=== PATIENT | female | born 1945 | race Caucasian/White ===

== ENCOUNTER 2016-11-15 11:35 | Emergency (ER) | payer OTHER, BC ==
[~2016-11-15] VITALS: Ht 152.4 cm; Wt 58.5 kg
[~2016-11-15 11:35] MED LIST: ARC10 PO; ASPI81TA21 PO; CLX20 PO; LEVO-217 PO; MEMA10TA PO; SIMV20TA2 PO; VITAMIN D 3 PO
[2016-11-15 11:38] VITALS: TEMP 36.4
[2016-11-15 12:00] VITALS: O2SAT 96
[2016-11-15] MEDS ORDERED: SODIUM CHLORIDE 0.9% 1000ML 1,000 ML IV SCH (12:32)
[2016-11-15 12:36] VITALS: Ht 152.4 cm; Wt 58.5 kg
[2016-11-15] MEDS ORDERED: CHOL1000 PO (12:42)
[2016-11-15] MEDS ORDERED: LEVO75TA5 PO (12:42)
[2016-11-15] MEDS ORDERED: MIRT15TA3 PO (12:42)
[2016-11-15] MEDS ORDERED: CLX20 PO (12:42)
[2016-11-15] MEDS ORDERED: LORA0.5T12 PO (12:42)
[2016-11-15] MEDS ORDERED: DONE1TAB26 PO (12:42)
[2016-11-15 13:02] LABS: BASO % 0.2 %; BASO ABS # 0.02 K/uL (0-0.2); COMPLETE YES; EOS % 1.7 %; HEMATOCRIT 37.3 % (37-47); IG% 0.2 %; LYMPH ABS # 2.55 K/uL (1.2-3.4); MEAN CELL VOLUME 93.7 fL (80-100); MEAN CORPUSCULAR HEMOGLOBIN 31.9 pg (25-34); MEAN PLATELET VOLUME 11.2 fL (7.4-10.4); MONO % 7.7 %; NEUT % 61.2 %; PLATELET COUNT 169 K/uL (130-400); RED BLOOD COUNT 3.98 M/uL (4.2-5.4); WHITE BLOOD COUNT 8.78 K/uL (4.8-10.8)
[2016-11-15 13:12] LABS: PROTHROMBIN TIME (PATIENT) 10.7 SECONDS (9.0-12.0)
[2016-11-15 13:19] LABS: BLOOD UREA NITROGEN 18 mg/dl (7-18); BUN/CREATININE RATIO 21.6 (10-20); CALCIUM 8.9 mg/dl (8.5-10.1); CARBON DIOXIDE 28 mmol/L (21-32); CHLORIDE 109 mmol/L (98-107); CREATININE 0.85 mg/dl (0.60-1.20); GLUCOSE 89 mg/dl (70-99); POTASSIUM 3.7 mmol/L (3.5-5.1); SODIUM 145 mmol/L (136-145)
[2016-11-15 13:24] LABS: CKMB/CK RATIO 2.3 (0-3.0)
--- NOTE | 2016-11-15 13:29 | DIAGNOSTIC IMAGING REPORT ---
HEAD CT NONCONTRAST CT DOSE: 638.56 mGycm HISTORY: Mental status change Stroke TECHNIQUE: Multiaxial CT images of the head were performed without the use of intravenous contrast. Comparison: 05/11/2012 Findings: The paranasal sinuses and mastoid air cells are clear. Moderate chronic small vessel change of aging. Mild compensatory prominence of the ventricular system. No evidence for acute intracranial hemorrhage. No midline shift. Impression: Chronic small vessel change. Age-related atrophy. No acute process. Electronically signed by: Ramu Sandhu M.D. 11/15/2016 1:28 PM Dictated Date/Time: 11/15/2016 1:27 PM
[2016-11-15 13:44] LABS: URINE APPEARANCE CLEAR (CLEAR); URINE BILIRUBIN NEG (NEG); URINE COLOR YELLOW; URINE NITRITE NEG (NEG); URINE SPECIFIC GRAVITY 1.002 (1.000-1.030); UROBILINOGEN NEG (NEG); ZZUR CULT IF INDIC CLEAN CATCH NO
[2016-11-15 13:52] LABS: MANUAL MICROSCOPIC REQUIRED? NO; REVIEW REQ? NO
[2016-11-15 14:01] LABS: BENZODIAZEPINE, URINE NEG (NEG); COCAINE,URINE NEG (NEG); PHENCYCLIDINE, URINE NEG (NEG)
[2016-11-15 15:30] VITALS: BP 171/105; PULSE 100; O2SAT 97
--- NOTE | 2016-11-15 16:49 | EMERGENCY ROOM VISIT NOTE ---
History Report prepared by Sj: Piper Gray Under the Supervision of: Dr. Dave Perry M.D. First contact with patient: 12:32 Chief Complaint: ALTERED MENTAL STATUS Stated Complaint: SLURRED SPEECH, DIFFICULTY WALKING Nursing Triage Summary: pt lives with her son, speech was slurred, off balance while taking her shower, started around 0730, pt has hx of dementia, decreased her citolopram, pt on remeron and lorazepam, last week because of patients behavior, they tried to obtain urine specimen but were unsuccessful. pt agitated in triage, family states this is why they are changing her meds History of Present Illness The patient is a 71 year old female who presents to the Emergency Room with complaints of intermittent balance issues starting yesterday. The patient had been bumping into horvath today. Around 7:30 am today, the patient's caregiver informed the family that she had slurred speech. The patient's son saw her at 8 am and did not think that her speech was worse than normal. About a week ago, the patient's Citalopram was decreased from 40 mg to 20 mg. She also started taking Remeron and Lorazepam. Since then, the patient has had some slurred speech when she becomes agitated. She has had increased agitation. On some days she has been sleeping more than normal while on other days she is awake all night. Over the past few weeks, the patient has had a cough. A few days ago, she started having nasal congestion. The patient's son had a sinus infection a few weeks ago. The patient currently denies any pain. Pt denies LOC, headache, fevers, chills, sore throat, diaphoresis, visual changes, neck pain, chest pain , breathing difficulties, nausea, vomiting, abdominal pain, back pain, melena, hematochezia, urinary symptoms, numbness, weakness, lymphadenopathy, rash, or other complaints. The patient has a history of dementia. Additional history was obtained as per family. Source of History: patient, family Onset: yesterday Position: other (global) Symptom Intensity: No pain Quality: other (balance issues) Timing: intermittent Associated Symptoms: + cough Review of Systems See HPI for pertinent positives and negatives. A total of ten systems were reviewed and were otherwise negative. Past Medical & Surgical Medical Problems: (1) Dementia (2) Hypertension (3) Thyroid disease Surgical Problems: (1) Hx of hysterectomy Family History Heart disease Hypertension Social History Smoking Status: Former Smoker Alcohol Use: none Drug Use: none Marital Status: single Housing Status: lives alone Occupation Status: retired Current/Historical Medications Scheduled Aspirin Enteric Coated (Ecotrin Or Generic), 81 MG PO DAILY Cholecalciferol (Vitamin D3), 1,000 UNITS PO DAILY Citalopram (Citalopram Hydrobromide), 20 MG PO HS Donepezil Hydrochloride (Donepezil Hcl), 10 MG PO DAILY Levothyroxine Sodium (Levothyroxine Sodium), 75 MCG PO DAILY Lorazepam (Lorazepam), 0.5 MG PO BID Memantine Hcl (Namenda), 10 MG PO BID Mirtazapine (Remeron), 7.5 MG PO HS Simvastatin (Zocor), 20 MG PO QPM Allergies Coded Allergies: No Known Allergies (Verified , 11/15/16) Physical Exam Vital Signs Date Time Temp Pulse Resp B/P Pulse Ox O2 Delivery O2 Flow Rate FiO2 11/15/16 15:30 100 18 171/105 97 11/15/16 14:20 82 16 140/84 98 Room Air 11/15/16 13:42 95 11/15/16 13:35 88 16 128/75 96 Room Air 11/15/16 13:08 95 18 125/82 99 Room Air 11/15/16 12:56 89 16 128/83 97 Room Air 11/15/16 12:30 85 16 130/85 96 Room Air 11/15/16 12:10 95 18 137/90 97 Room Air 11/15/16 12:00 96 Room Air 11/15/16 11:55 91 18 136/89 97 Room Air 11/15/16 11:40 94 18 130/85 96 Room Air 11/15/16 11:38 36.4 107 18 159/103 98 Room Air Physical Exam GENERAL: Awake, alert, mildly agitated but in no acute distress HENT: Normocephalic, atraumatic. Oropharynx unremarkable. EYES: Normal conjunctiva. Sclera non-icteric. NECK: Supple. No nuchal rigidity. FROM. No JVD. RESPIRATORY: Clear to auscultation. CARDIAC: Borderline tachycardic rate, normal rhythm. Extremities warm and well perfused. Pulses equal. ABDOMEN: Soft, non-distended. No tenderness to palpation. No rebound or guarding. No masses. RECTAL: Deferred. MUSCULOSKELETAL: Chest examination reveals no tenderness. The back is symmetrical on inspection without obvious abnormality. There is no CVA tenderness to palpation. No joint edema. LOWER EXTREMITIES: Calves are equal size bilaterally and non-tender. No edema. No discoloration. NEURO: Demented sensorium, labile affect, no sensory or motor deficits, speech is normal. No sensory or motor deficits noted. SKIN: No rash or jaundice noted. Medical Decision & Procedures ER Provider Diagnostic Interpretation: CT: Radiology results as stated below per my review and radiologist interpretation HEAD CT NONCONTRAST CT DOSE: 638.56 mGycm HISTORY: Mental status change Stroke TECHNIQUE: Multiaxial CT images of the head were performed without the use of intravenous contrast. Comparison: 05/11/2012 Findings: The paranasal sinuses and mastoid air cells are clear. Moderate chronic small vessel change of aging. Mild compensatory prominence of the ventricular system. No evidence for acute intracranial hemorrhage. No midline shift. Impression: Chronic small vessel change. Age-related atrophy. No acute process. Electronically signed by: Ramu Sandhu M.D. 11/15/2016 1:28 PM Dictated Date/Time: 11/15/2016 1:27 PM Laboratory Results 11/15/16 12:50 Red Blood Count 3.98, Mean Corpuscular Volume 93.7, Mean Corpuscular Hemoglobin 31.9, Mean Corpuscular Hemoglobin Concent 34.0, Mean Platelet Volume 11.2, Neutrophils (%) (Auto) 61.2, Lymphocytes (%) (Auto) 29.0, Monocytes (%) (Auto) 7.7, Eosinophils (%) (Auto) 1.7, Basophils (%) (Auto) 0.2, Neutrophils # (Auto) 5.36, Lymphocytes # (Auto) 2.55, Monocytes # (Auto) 0.68, Eosinophils # (Auto) 0.15, Basophils # (Auto) 0.02 11/15/16 12:50 Test 11/15/16 12:50 11/15/16 12:51 11/15/16 12:59 11/15/16 13:32 White Blood Count 8.78 K/uL (4.8-10.8) Red Blood Count 3.98 M/uL (4.2-5.4) Hemoglobin 12.7 g/dL (12.0-16.0) Hematocrit 37.3 % (37-47) Mean Corpuscular Volume 93.7 fL (80-100) Mean Corpuscular Hemoglobin 31.9 pg (25-34) Mean Corpuscular Hemoglobin Concent 34.0 g/dl (32-36) Platelet Count 169 K/uL (130-400) Mean Platelet Volume 11.2 fL (7.4-10.4) Neutrophils (%) (Auto) 61.2 % Lymphocytes (%) (Auto) 29.0 % Monocytes (%) (Auto) 7.7 % Eosinophils (%) (Auto) 1.7 % Basophils (%) (Auto) 0.2 % Neutrophils # (Auto) 5.36 K/uL (1.4-6.5) Lymphocytes # (Auto) 2.55 K/uL (1.2-3.4) Monocytes # (Auto) 0.68 K/uL (0.11-0.59) Eosinophils # (Auto) 0.15 K/uL (0-0.5) Basophils # (Auto) 0.02 K/uL (0-0.2) RDW Standard Deviation 45.9 fL (36.4-46.3) RDW Coefficient of Variation 13.3 % (11.5-14.5) Immature Granulocyte % (Auto) 0.2 % Immature Granulocyte # (Auto) 0.02 K/uL (0.00-0.02) Prothrombin Time 10.7 SECONDS (9.0-12.0) Prothromb Time International Ratio 1.0 (0.9-1.1) Activated Partial Thromboplast Time 25.3 SECONDS (21.0-31.0) Partial Thromboplastin Ratio 1.0 Anion Gap 8.0 mmol/L (3-11) Est Creatinine Clear Calc Drug Dose 49.3 ml/min Estimated GFR () 80.5 Estimated GFR (Non- 69.4 BUN/Creatinine Ratio 21.6 (10-20) Calcium Level 8.9 mg/dl (8.5-10.1) Total Creatine Kinase 139 U/L (26-192) Creatine Kinase MB 3.2 ng/ml (0.5-3.6) Creatine Kinase MB Ratio 2.3 (0-3.0) Troponin I < 0.015 ng/ml (0-0.045) Bedside Glucose 91 mg/dl (70-90) Bedside Prothrombin Time INR 1.0 (0.9-1.1) Urine Color YELLOW Urine Appearance CLEAR (CLEAR) Urine pH 8.0 (4.5-7.5) Urine Specific [place] 1.002 (1.000-1.030) Urine Protein NEG (NEG) Urine Glucose (UA) NEG (NEG) Urine Ketones NEG (NEG) Urine Occult Blood NEG (NEG) Urine Nitrite NEG (NEG) Urine Bilirubin NEG (NEG) Urine Urobilinogen NEG (NEG) Urine Leukocyte Esterase NEG (NEG) Urine Opiates Screen NEG (NEG) Urine Methadone, Qualitative NEG (NEG) Urine Barbiturates NEG (NEG) Urine Phencyclidine (PCP) Level NEG (NEG) Ur Amphetamine/Methamphetamine NEG (NEG) MDMA (Ecstasy) Screen NEG (NEG) Urine Benzodiazepines Screen NEG (NEG) Urine Cocaine Metabolite NEG (NEG) Urine Marijuana (THC) NEG (NEG) Laboratory results reviewed by me Medications Administered Medications (Trade) Dose Ordered Sig/Fang Route Start Time Stop Time Status Last Admin Dose Admin Sodium Chloride (Nss 1000ml) 1,000 ml @ 50 mls/hr Q20H IV 11/15/16 12:32 11/15/16 15:39 DC 11/15/16 12:55 50 MLS/HR ECG Indication: other (Slurred speech; balance issues) Rate (beats per minute): 113 Rhythm: sinus tachycardia Findings: nonspecific-ST abn, no acute ischemic change, no ectopy ED Course 1232: The patient was evaluated in room B09. A complete history and physical exam was performed. Sodium Chloride 1000 ml @ 50 mls/hr IV 1444: I reevaluated the patient. Discussed results and discharge instructions: the patient and her family verbalized understanding and agreement. She has an appointment with her PCP on November 19. The patient is ready for discharge. Medical Decision Triage Nursing notes reviewed. The patient's presentation and history were concerning for altered mental status. Etiologies such as metabolic, infection, hypo/hyperglycemia, electrolyte abnormalities, cardiac sources, intracerebral event, toxicologic, neurologic, as well as others were entertained. The patient was evaluated. Family actually notes that her questionable slurred speech seems to occur when she is tired. When she is wide awake and etiologies agitated she does not have slurred speech. She has a history of progressive dementia. The patient had a labile affect. She was waxing and waning. The patient was agreeable to testing. She had a CT performed and this was negative. The patient had a nonischemic ECG. Her CBC, chemistry panel, urinalysis, and markers were negative. The patient has had some medication changes recently and has had some agitation which required some extra benzodiazepine doses. This may be contributing to her sleepiness and slurred speech. I discussed conservative management with the patient and family. They feel very comfortable keeping her at home and having her follow up first thing next week as scheduled. If she worsens in any way they will bring her back to the emergency department for reevaluation. Given the fact that slurred speech resolves with her level of alertness it does not appear to be consistent with a TIA. This may be dementia or medication related. Since the patient desires to go home and the family is comfortable with this she will be discharged to follow -up as an outpatient. By the evaluation outlined above other emergent etiologies such as those listed in the differential, as well as others, were deemed relatively unlikely. The family were informed about the findings as listed above. All questions were answered and they were pleased with the treatment. Return instructions were outlined and the patient was discharged in stable condition. The patient was referred to her PCP for follow-up as scheduled first thing next week for a recheck of the current condition. The chart was completed utilizing [employer] voice recognition software. Grammatical errors, random word insertions, pronoun errors, and incomplete sentences are an occasional consequence of this system due to software limitations, ambient noise, and hardware issues. Any formal questions or concerns about the content, text, or information contained within the body of this dictation should be directly addressed to the physician for clarification. Impression Primary Impression: Slurred speech Additional Impression: Dementia Scribe Attestation The scribe's documentation has been prepared under my direction and personally reviewed by me in its entirety. I confirm that the note above accurately reflects all work, treatment, procedures, and medical decision making performed by me. Departure Information Dispostion Home / Self-Care Referrals Darwin Cavanaugh MD (PCP) Forms HOME CARE DOCUMENTATION FORM, IMPORTANT VISIT INFORMATION Patient Instructions My [facility] Additional Instructions Continue current medications. Follow-up as scheduled on Saturday. Rest. Drink plenty of fluids. Return to the ER for headache, passing out, difficulty breathing, fevers, numbness, tingling, worsening of your condition, or as needed. Problem Qualifiers
[2017-06-08] MEDS ORDERED: XRL15 PO (09:17)
[2017-06-08] MEDS ORDERED: ZLF50 PO (09:17)
[2017-06-08] MEDS ORDERED: CLX20 PO (09:17)
[2017-06-08] MEDS ORDERED: LORA0.5T12 PO (09:17)
== END 2016-11-15 15:32 | disposition home or self-care (01) ==
LOC: C.EDB 11:37
DX: R47.81 Slurred speech (principal); F03.90 Unspecified dementia, unspecified severity, without behavioral disturbance, psychotic disturbance, mood disturbance, and anxiety; I10 Essential (primary) hypertension; E07.9 Disorder of thyroid, unspecified; Z79.82 Long term (current) use of aspirin; Z79.899 Other long term (current) drug therapy; Z87.891 Personal history of nicotine dependence; Z82.49 Family history of ischemic heart disease and other diseases of the circulatory system

== ENCOUNTER → 2016-11-26 | Outpatient (CLI) | payer OTHER, BC ==
[~2016-11-26] MED LIST changes: -ARC10 PO; +CHOL1000 PO; +CITA10TA4 PO; +DONE1TAB26 PO; -LEVO-217 PO; +LEVO75TA5 PO; +LORA0.5T12 PO; +MELA1TAB5 PO; +MIRT15TA3 PO; +OLAN-80 PO; +SERT25TA PO; -VITAMIN D 3 PO; +XRL15 PO; +ZLF50 PO
--- NOTE | 2016-11-26 20:24 | DIAGNOSTIC IMAGING REPORT ---
VENOUS DOPPLER RIGHT ARM UPPER EXTREMITY VENOUS DOPPLER HISTORY: Pain edema COMPARISON STUDY: None. FINDINGS: Study is positive for thrombus within the right cephalic vein at the level of the antecubital fossa as well as throughout the upper arm. All remaining venous structures appear to be patent. IMPRESSION: Extensive superficial venous thrombosis. No evidence for deep venous thrombosis Electronically signed by: Ramu Sandhu M.D. 11/26/2016 8:22 PM Dictated Date/Time: 11/26/2016 8:21 PM
--- NOTE | 2016-11-26 20:29 | DIAGNOSTIC IMAGING REPORT ---
RIGHT FOREARM 2 VIEWS ROUTINE CLINICAL HISTORY: M79.601 Right pain COMPARISON: None. DISCUSSION: The bones and joint spaces appear intact. There is no evidence of fracture, dislocation or bony disease. There is no evidence for soft tissue swelling. IMPRESSION: Negative study. Electronically signed by: Ramu Sandhu M.D. 11/26/2016 8:28 PM Dictated Date/Time: 11/26/2016 8:28 PM
== END | disposition home or self-care (01) ==
LOC: C.RAD 19:28
PROVIDERS: ATTEND Family Medicine
DX: M79.601 Pain in right arm (principal)

== ENCOUNTER 2017-06-03 20:17 | Inpatient (IN) | payer OTHER, BC ==
[~2017-06-03] VITALS: Ht 157.5 cm; Wt 55.8 kg
[~2017-06-03 20:17] MED LIST changes: -CITA10TA4 PO; -MELA1TAB5 PO; -OLAN-80 PO; -SERT25TA PO; -XRL15 PO; -ZLF50 PO
--- NOTE | 2017-06-03 21:06 | DIAGNOSTIC IMAGING REPORT ---
CHEST ONE VIEW PORTABLE CLINICAL HISTORY: Shortness of breath. COMPARISON STUDY: Chest radiograph July 01, 2015. FINDINGS: Lung volumes are normal. Patient is mildly rotated. No pneumothorax or pleural effusion is present. Cardiac size is normal. There is no evidence of pulmonary edema. The appearance of the chest is unchanged. IMPRESSION: No acute cardiopulmonary findings. Electronically signed by: Marcelino Chavez M.D. 06/03/2017 9:05 PM Dictated Date/Time: 06/03/2017 9:04 PM
--- NOTE | 2017-06-03 21:11 | EMERGENCY ROOM VISIT NOTE ---
History Report prepared by Sj: Maxx Vazquez Under the Supervision of: Dr. Alex Murguia M.D. First contact with patient: 20:47 Chief Complaint: SWELLING TO EXTREMITY Stated Complaint: LEG PAIN, SWELLING L LEG,SOB, MED CHANGE History of Present Illness The patient is a 71 year old female who presents to the Emergency Room with complaints of left lower extremity swelling that began yesterday. She had a recent medication change last week, Celexa to Zoloft. She began to experience intermittent shortness of breath and nausea beginning three days ago. Per the son, he was also concerned because she seemed pale and blue around the mouth at times. Yesterday, she had an episode of incontinence in her bed as well. She denies any abdominal pain. Source of History: patient Onset: yesterday Position: leg (left) Symptom Intensity: moderate Quality: other (Swelling) Timing: constant Associated Symptoms: + SOB, + nausea, No abdominal pain Review of Systems See HPI for pertinent positives & negatives. A total of 10 systems reviewed and were otherwise negative. Past Medical & Surgical Medical Problems: (1) Dementia (2) DVT (deep venous thrombosis) (3) Hypertension (4) Pulmonary embolism (5) Thyroid disease Surgical Problems: (1) Hx of hysterectomy Family History Heart disease Hypertension Social History Smoking Status: Former Smoker Alcohol Use: none Drug Use: none Marital Status: single Housing Status: lives alone Occupation Status: retired Current/Historical Medications Scheduled Aspirin Enteric Coated (Ecotrin Or Generic), 81 MG PO DAILY Cholecalciferol (Vitamin D3), 1,000 UNITS PO DAILY Citalopram (Citalopram Hydrobromide), 20 MG PO HS Donepezil Hydrochloride (Donepezil Hcl), 10 MG PO DAILY Levothyroxine Sodium (Levothyroxine Sodium), 75 MCG PO DAILY Lorazepam (Lorazepam), 0.5 MG PO BID Memantine Hcl (Namenda), 10 MG PO BID Mirtazapine (Remeron), 7.5 MG PO HS Simvastatin (Zocor), 20 MG PO QPM Allergies Coded Allergies: No Known Allergies (Verified , 11/15/16) Physical Exam Vital Signs Date Time Temp Pulse Resp B/P (MAP) Pulse Ox O2 Delivery O2 Flow Rate FiO2 06/03/17 23:18 70 159/89 95 06/03/17 21:18 95 Room Air 8/28/17 20:24 36.6 88 18 171/81 Room Air Physical Exam GENERAL: Patient is a healthy-appearing well-nourished female HEAD: Normocephalic atraumatic EYES: Ocular movements intact pupils equal and react to light OROPHARYNX mucous membranes are moist no exudates present no erythema or edema present NECK: Supple no nuchal rigidity CHEST: Good equal expansion LUNGS: Clear and equal to auscultation CARDIAC: Normal S1 and S2 ABDOMEN: Soft nontender no guarding BACK: No CVA tenderness EXTREMITIES: No pain upon palpation normal muscle strength in all groups no clubbing cyanosis. Left lower extremity has 2+ edema and is twice the size as the right lower extremity. NEURO: Patient is following commands and answering questions appropriately. Alert and oriented x3 Cranial Nerves 2-12 grossly intact Medical Decision & Procedures ER Provider Diagnostic Interpretation: Radiology results as stated below per my review and radiologist interpretation: LEFT LOWER EXTREMITY VENOUS DOPPLER CLINICAL HISTORY: Left lower extremity swelling. COMPARISON STUDY: Left lower extremity venous Doppler August 14, 2010. TECHNIQUE: Sonography of the deep venous system of the left lower extremity was performed. Compression and augmentation were evaluated. FINDINGS: Note is made of deep venous thrombus within the left common femoral, superficial femoral, posterior tibial, peroneal and anterior tibial veins. Several vessels are expanded and thrombus is occlusive within several vessels. IMPRESSION: Extensive deep venous thrombus within the left lower extremity which is likely acute. Electronically signed by: Marcelino Chavez M.D. 06/03/2017 9:49 PM Dictated Date/Time: 06/03/2017 9:48 PM CHEST ONE VIEW PORTABLE CLINICAL HISTORY: Shortness of breath. COMPARISON STUDY: Chest radiograph July 01, 2015. FINDINGS: Lung volumes are normal. Patient is mildly rotated. No pneumothorax or pleural effusion is present. Cardiac size is normal. There is no evidence of pulmonary edema. The appearance of the chest is unchanged. IMPRESSION: No acute cardiopulmonary findings. Electronically signed by: Marcelino Chavez M.D. 06/03/2017 9:05 PM Dictated Date/Time: 06/03/2017 9:[address] ANGIOGRAPHY OF THE CHEST, PULMONARY EMBOLUS PROTOCOL CLINICAL HISTORY: Shortness of breath. Left leg pain and swelling. COMPARISON STUDY: Chest radiograph performed earlier today and July 01, 2015. TECHNIQUE: Following IV administration of 75 mL of Optiray-320, helical axial images of the chest were obtained utilizing the pulmonary embolus protocol. Maximal intensity projections and sagittal and coronal reformats were viewed on an independent 3D workstation. IV contrast was administered without complication. A dose lowering technique was utilized adhering to the principles of ALARA. CT DOSE: 344.50 mGy.cm FINDINGS: There are extensive bilateral pulmonary emboli, including emboli within the left and right main pulmonary arteries. Pulmonary emboli are noted within the the lobar and segmental branches of all lobes of both lungs. There is no evidence for right heart strain by CT. The size of the heart is normal. No thoracic aortic dissection is present. There are no enlarged thoracic lymph nodes. No pneumothorax or pleural effusion is present. Groundglass opacities favor atelectasis. A few small subpleural nodules are noted, the largest of which is a 4 mm left lower lobe nodule shown on image 109 of 251. Multifocal medial is plugging is noted. Gallstone is noted within the gallbladder. IMPRESSION: 1. Extensive bilateral pulmonary emboli, including emboli within the right and left main pulmonary arteries. No CT of the right heart strain. No pulmonary infarct. 2. A few small subpleural nodules which are likely benign but a follow-up chest CT in one year to ensure stability is recommended. 3. Cholelithiasis. Electronically signed by: Marcelino Chavez M.D. 06/03/2017 11:08 PM Dictated Date/Time: 06/03/2017 10:59 PM Laboratory Results 06/03/17 21:05 Red Blood Count 4.21, Mean Corpuscular Volume 92.6, Mean Corpuscular Hemoglobin 29.5, Mean Corpuscular Hemoglobin Concent 31.8, Mean Platelet Volume 11.2, Neutrophils (%) (Auto) 72.2, Lymphocytes (%) (Auto) 16.3, Monocytes (%) (Auto) 10.0, Eosinophils (%) (Auto) 1.0, Basophils (%) (Auto) 0.3, Neutrophils # (Auto ) 7.64, Lymphocytes # (Auto) 1.72, Monocytes # (Auto) 1.06, Eosinophils # (Auto ) 0.11, Basophils # (Auto) 0.03 06/03/17 21:05 Test 06/03/17 21:05 06/03/17 22:47 06/03/17 23:17 White Blood Count 10.58 K/uL (4.8-10.8) Red Blood Count 4.21 M/uL (4.2-5.4) Hemoglobin 12.4 g/dL (12.0-16.0) Hematocrit 39.0 % (37-47) Mean Corpuscular Volume 92.6 fL (80-100) Mean Corpuscular Hemoglobin 29.5 pg (25-34) Mean Corpuscular Hemoglobin Concent 31.8 g/dl (32-36) Platelet Count 164 K/uL (130-400) Mean Platelet Volume 11.2 fL (7.4-10.4) Neutrophils (%) (Auto) 72.2 % Lymphocytes (%) (Auto) 16.3 % Monocytes (%) (Auto) 10.0 % Eosinophils (%) (Auto) 1.0 % Basophils (%) (Auto) 0.3 % Neutrophils # (Auto) 7.64 K/uL (1.4-6.5) Lymphocytes # (Auto) 1.72 K/uL (1.2-3.4) Monocytes # (Auto) 1.06 K/uL (0.11-0.59) Eosinophils # (Auto) 0.11 K/uL (0-0.5) Basophils # (Auto) 0.03 K/uL (0-0.2) RDW Standard Deviation 47.6 fL (36.4-46.3) RDW Coefficient of Variation 14.0 % (11.5-14.5) Immature Granulocyte % (Auto) 0.2 % Immature Granulocyte # (Auto) 0.02 K/uL (0.00-0.02) Anion Gap 9.0 mmol/L (3-11) Est Creatinine Clear Calc Drug Dose 51.8 ml/min Estimated GFR () 86.6 Estimated GFR (Non- 74.7 BUN/Creatinine Ratio 21.3 (10-20) Calcium Level 8.6 mg/dl (8.5-10.1) Total Bilirubin 0.2 mg/dl (0.2-1) Aspartate Amino Transf (AST/SGOT) 24 U/L (15-37) Alanine Aminotransferase (ALT/SGPT) 22 U/L (12-78) Alkaline Phosphatase 101 U/L (45-117) Total Creatine Kinase 56 U/L (26-192) Creatine Kinase MB 1.5 ng/ml (0.5-3.6) Creatine Kinase MB Ratio 2.7 (0-3.0) Troponin I 0.235 ng/ml (0-0.045) Pro-B-Type Natriuretic Peptide 95 pg/ml (0-900) Total Protein 6.5 gm/dl (6.4-8.2) Albumin 2.8 gm/dl (3.4-5.0) Globulin 3.7 gm/dl (2.5-4.0) Albumin/Globulin Ratio 0.8 (0.9-2) Prothrombin Time 11.2 SECONDS (9.0-12.0) Prothromb Time International Ratio 1.0 (0.9-1.1) Activated Partial Thromboplast Time 31.3 SECONDS (21.0-31.0) Partial Thromboplastin Ratio 1.2 Urine Color YELLOW Urine Appearance CLEAR (CLEAR) Urine pH 7.0 (4.5-7.5) Urine Specific [place] 1.029 (1.000-1.030) Urine Protein NEG (NEG) Urine Glucose (UA) NEG (NEG) Urine Ketones NEG (NEG) Urine Occult Blood TRACE (NEG) Urine Nitrite NEG (NEG) Urine Bilirubin NEG (NEG) Urine Urobilinogen NEG (NEG) Urine Leukocyte Esterase TRACE (NEG) Urine WBC (Auto) 1-5 /hpf (0-5) Urine RBC (Auto) 5-10 /hpf (0-4) Urine Hyaline Casts (Auto) 0 /lpf (0-5) Urine Epithelial Cells (Auto) 10-20 /lpf (0-5) Urine Bacteria (Auto) NEG (NEG) Labs reviewed by ED physician. ECG Indication: other (LLE Edema) Rate (beats per minute): 91 Rhythm: normal sinus Findings: no acute ischemic change, no ectopy ED Course 2046: Past medical records reviewed. The patient was evaluated in room C11. A complete history and physical examination was performed. 2246: Upon reexamination the patient is resting. I discussed results and treatment plan with the patient. She verbalizes agreement and understanding. I spoke with Dr. Spicer from the [facility]. The patient will be evaluated for further management. Medical Decision Differential diagnosis: Etiologies such as infections, reactive airway disease, pneumonia, pneumothorax , COPD, CHF, cardiac ischemia, pulmonary embolism, musculoskeletal, gastrointestinal, as well as others were entertained. This is a 71-year-old female who presents emergency department complaining of left lower extremity swelling. In addition the patient has been cyanotic at home. The patient has a DVT in the left lower extremity. She was sent for CAT scan of the chest that the patient's troponin is also elevated. This revealed multiple bilateral pulmonary emboli. I did discuss the case with the hospitalist service. I hypercoagulability workup was initiated. Medication Reconcilliation Current Medication List: was personally reviewed by me Blood Pressure Screening Patient's blood pressure: Elevated blood pressure Blood pressure disposition: Referred to PCP Consults Time Called: [id number] Consulting Physician: Dr. Spicer - [facility] [place] Returned Call: [phone] I discussed the patient's case with Dr. Spicer, he has agreed to evaluate the patient for further management and care. Impression Primary Impression: Pulmonary embolism Additional Impression: DVT (deep venous thrombosis) Critical Care I have personally spent greater than 30 minutes of critical care time in the direct management of this patient. This includes bedside care, interpretation of diagnostic studies, and testing, discussion with consultants, patient, and family members, and other required patient management activities. This 30 minutes is in excess of all separately billable procedures. Scribe Attestation The scribe's documentation has been prepared under my direction and personally reviewed by me in its entirety. I confirm that the note above accurately reflects all work, treatment, procedures, and medical decision making performed by me. Departure Information Dispostion Being Evaluated By Hospitalist Referrals Naomi Patterson (PCP) Patient Instructions My [facility] Problem Qualifiers Primary Impression: Pulmonary embolism Pulmonary embolism type: other Chronicity: acute Acute cor pulmonale presence: without acute cor pulmonale Qualified Codes: I26.99 - Other pulmonary embolism without acute cor pulmonale Additional Impression: DVT (deep venous thrombosis) DVT location: lower extremity Affected thrombotic vein of extremity: femoral Chronicity: acute Laterality: left Qualified Codes: I82.412 - Acute embolism and thrombosis of left femoral vein
[2017-06-03 21:18] LABS: BASO % 0.3 %; BASO ABS # 0.03 K/uL (0-0.2); COMPLETE YES; IG% 0.2 %; LYMPH % 16.3 %; LYMPH ABS # 1.72 K/uL (1.2-3.4); MEAN CELL VOLUME 92.6 fL (80-100); MEAN CORPUSCULAR HEMOGLOBIN 29.5 pg (25-34); MEAN CORPUSCULAR HGB CONC 31.8 g/dl (32-36); MEAN PLATELET VOLUME 11.2 fL (7.4-10.4); NEUT % 72.2 %; PLATELET COUNT 164 K/uL (130-400); RED BLOOD COUNT 4.21 M/uL (4.2-5.4); WHITE BLOOD COUNT 10.58 K/uL (4.8-10.8)
[2017-06-03 21:35] LABS: BUN/CREATININE RATIO 21.3 (10-20); CALCIUM 8.6 mg/dl (8.5-10.1); CREATININE 0.8 mg/dl (0.60-1.20); POTASSIUM 3.5 mmol/L (3.5-5.1)
[2017-06-03 21:45] LABS: ALB/GLOB RATIO 0.8 (0.9-2); CKMB/CK RATIO 2.7 (0-3.0)
--- NOTE | 2017-06-03 21:51 | DIAGNOSTIC IMAGING REPORT ---
LEFT LOWER EXTREMITY VENOUS DOPPLER CLINICAL HISTORY: Left lower extremity swelling. COMPARISON STUDY: Left lower extremity venous Doppler August 14, 2010. TECHNIQUE: Sonography of the deep venous system of the left lower extremity was performed. Compression and augmentation were evaluated. FINDINGS: Note is made of deep venous thrombus within the left common femoral, superficial femoral, posterior tibial, peroneal and anterior tibial veins. Several vessels are expanded and thrombus is occlusive within several vessels. IMPRESSION: Extensive deep venous thrombus within the left lower extremity which is likely acute. Electronically signed by: Marcelino Chavez M.D. 06/03/2017 9:49 PM Dictated Date/Time: 06/03/2017 9:48 PM
[2017-06-03] MEDS ORDERED: OPTIRAY 320 IV PRN (22:45)
--- NOTE | 2017-06-03 23:09 | DIAGNOSTIC IMAGING REPORT ---
CT ANGIOGRAPHY OF THE CHEST, PULMONARY EMBOLUS PROTOCOL CLINICAL HISTORY: Shortness of breath. Left leg pain and swelling. COMPARISON STUDY: Chest radiograph performed earlier today and July 01, 2015. TECHNIQUE: Following IV administration of 75 mL of Optiray-320, helical axial images of the chest were obtained utilizing the pulmonary embolus protocol. Maximal intensity projections and sagittal and coronal reformats were viewed on an independent 3D workstation. IV contrast was administered without complication. A dose lowering technique was utilized adhering to the principles of ALARA. CT DOSE: 344.50 mGy.cm FINDINGS: There are extensive bilateral pulmonary emboli, including emboli within the left and right main pulmonary arteries. Pulmonary emboli are noted within the the lobar and segmental branches of all lobes of both lungs. There is no evidence for right heart strain by CT. The size of the heart is normal. No thoracic aortic dissection is present. There are no enlarged thoracic lymph nodes. No pneumothorax or pleural effusion is present. Groundglass opacities favor atelectasis. A few small subpleural nodules are noted, the largest of which is a 4 mm left lower lobe nodule shown on image 109 of 251. Multifocal medial is plugging is noted. Gallstone is noted within the gallbladder. IMPRESSION: 1. Extensive bilateral pulmonary emboli, including emboli within the right and left main pulmonary arteries. No CT of the right heart strain. No pulmonary infarct. 2. A few small subpleural nodules which are likely benign but a follow-up chest CT in one year to ensure stability is recommended. 3. Cholelithiasis. Electronically signed by: Marcelino Chavez M.D. 06/03/2017 11:08 PM Dictated Date/Time: 06/03/2017 10:59 PM
[2017-06-03] MEDS ORDERED: ONDANSETRON INJ 2 MG/ML 2 ML VIAL IV PRN (23:15)
[2017-06-03] MEDS ORDERED: POLYETHYLENE (MIRALAX) 17 GM PACK PO PRN (23:15)
[2017-06-03] MEDS ORDERED: ALUMINUM/MAGNESIUM/SIMETH (MAALOX MAX) 30 ML UDC PO PRN (23:15)
[2017-06-03] MEDS ORDERED: ACETAMINOPHEN 325 MG TAB PO PRN (23:15)
[2017-06-03] MEDS ORDERED: MAGNESIUM HYDROXIDE SUSP 30 ML UDC PO PRN (23:15)
[2017-06-03] MEDS ORDERED: MoRPHine SULFATE 2 MG/ML CARP IV PRN (23:15)
[2017-06-03 23:17] LABS: PARTIAL THROMBOPLASTIN RATIO 1.2; PROTHROMBIN TIME (PATIENT) 11.2 SECONDS (9.0-12.0)
--- NOTE | 2017-06-03 23:27 | History and Physical ---
History & Physical Date & Time of Service: Jun 03, 2017 at 23:12 Chief Complaint: Leg Pain, Swelling L Leg,Sob, Med Change Primary Care Physician: Naomi Patterson History of Present Illness Source: patient, family 71 y/o F Hx advanced dementia, hypothyroidism, depression. Pt has had progressive swelling and pain of her LLE. In addition, her family describe exertional dyspnea and a bluish discoloration of her lips. She is a poor historian but denies any CP, N/V, dysuria or fevers. A LLE ultrasound revealed an extensive occlusive DVT. A CTA revealed extensive B/L PEs. The pts initial troponin is elevated. She exhibits mild tachycardia but is otherwise stable on admission. Past Medical/Surgical History Medical Problems: (1) Dementia Status: Chronic (2) Hypertension Status: Chronic (3) Thyroid disease Status: Chronic Surgical Problems: (1) Hx of hysterectomy Status: Resolved Family History Heart disease Hypertension Social History Smoking Status: Former Smoker Drug Use: none Marital Status: single Occupational Status: retired Multi-Drug Resistant Organisms History of MDRO: No Allergies Coded Allergies: No Known Allergies (Verified , 11/15/16) Home Medications Scheduled Aspirin Enteric Coated (Ecotrin Or Generic), 81 MG PO DAILY Cholecalciferol (Vitamin D3), 1,000 UNITS PO DAILY Citalopram (Citalopram Hydrobromide), 20 MG PO HS Donepezil Hydrochloride (Donepezil Hcl), 10 MG PO DAILY Levothyroxine Sodium (Levothyroxine Sodium), 75 MCG PO DAILY Lorazepam (Lorazepam), 0.5 MG PO BID Memantine Hcl (Namenda), 10 MG PO BID Mirtazapine (Remeron), 7.5 MG PO HS Simvastatin (Zocor), 20 MG PO QPM Review of Systems Constitutional: No fever, No chills, No sweats Eyes: No worsening of vision, No eye pain ENT: No hearing loss, No nasal symptoms Respiratory: + shortness of breath, + dyspnea on exertion, No cough, No sputum , No wheezing Cardiovascular: No chest pain, No orthopnea, No PND Abdomen: No pain, No nausea, No vomiting Musculoskeletal: No joint pain, No muscle pain Genitourinary - Female: No dysuria, No urinary frequency, No urinary urgency Neurologic: No memory loss, No paralysis, No weakness Psychiatric: No depression symptoms, No anhedonism Endocrine: No fatigue Hematologic / Lymphatic: No abnormal bleeding/bruising Integumentary: No rash Allergic / Immunologic: No environmental allergies Physical Exam Vital Signs Date Time Temp Pulse Resp B/P (MAP) Pulse Ox O2 Delivery O2 Flow Rate FiO2 06/03/17 21:18 95 Room Air 06/03/17 20:24 36.6 88 18 171/81 Room Air General Appearance: + pertinent finding (Thin elderly female with flat affect - no distress) Head: normocephalic, atraumatic Eyes: normal inspection, EOMI ENT: normal ENT inspection, pharynx normal, + pertinent finding (No evidence of cyanosis) Neck: supple, thyroid normal Respiratory/Chest: chest non-tender, lungs clear, normal breath sounds, no respiratory distress, no accessory muscle use Cardiovascular: regular rate, rhythm, no edema, no gallop, no JVD, no murmur, normal peripheral pulses Abdomen/GI: normal bowel sounds, non tender, soft Back: normal inspection, no CVA tenderness, no muscle spasm, normal range of motion Extremities/Musculoskelatal: normal inspection, no calf tenderness, normal capillary refill, no pedal edema, normal range of motion Neurologic/Psych: tuckpointer cleaner caulker II-XII nml as tested, no motor/sensory deficits, alert Skin: normal color, warm/dry, no rash Diagnostics Laboratory Results Results Past 24 Hours Test 06/03/17 21:05 06/03/17 22:47 Range/Units White Blood Count 10.58 4.8-10.8 K/uL Red Blood Count 4.21 4.2-5.4 M/uL Hemoglobin 12.4 12.0-16.0 g/dL Hematocrit 39.0 37-47 % Mean Corpuscular Volume 92.6 80-100 fL Mean Corpuscular Hemoglobin 29.5 25-34 pg Mean Corpuscular Hemoglobin Concent 31.8 32-36 g/dl Platelet Count 164 130-400 K/uL Mean Platelet Volume 11.2 7.4-10.4 fL Neutrophils (%) (Auto) 72.2 % Lymphocytes (%) (Auto) 16.3 % Monocytes (%) (Auto) 10.0 % Eosinophils (%) (Auto) 1.0 % Basophils (%) (Auto) 0.3 % Neutrophils # (Auto) 7.64 1.4-6.5 K/uL Lymphocytes # (Auto) 1.72 1.2-3.4 K/uL Monocytes # (Auto) 1.06 0.11-0.59 K/uL Eosinophils # (Auto) 0.11 0-0.5 K/uL Basophils # (Auto) 0.03 0-0.2 K/uL RDW Standard Deviation 47.6 36.4-46.3 fL RDW Coefficient of Variation 14.0 11.5-14.5 % Immature Granulocyte % (Auto) 0.2 % Immature Granulocyte # (Auto) 0.02 0.00-0.02 K/uL Sodium Level 144 136-145 mmol/L Potassium Level 3.5 3.5-5.1 mmol/L Chloride Level 109 98-107 mmol/L Carbon Dioxide Level 26 21-32 mmol/L Anion Gap 9.0 3-11 mmol/L Blood Urea Nitrogen 17 7-18 mg/dl Creatinine 0.80 0.60-1.20 mg/dl Est Creatinine Clear Calc Drug Dose 51.8 ml/min Estimated GFR () 86.6 Estimated GFR (Non- 74.7 BUN/Creatinine Ratio 21.3 10-20 Random Glucose 108 70-99 mg/dl Calcium Level 8.6 8.5-10.1 mg/dl Total Bilirubin 0.2 0.2-1 mg/dl Aspartate Amino Transf (AST/SGOT) 24 15-37 U/L Alanine Aminotransferase (ALT/SGPT) 22 12-78 U/L Alkaline Phosphatase 101 45-117 U/L Total Creatine Kinase 56 26-192 U/L Creatine Kinase MB 1.5 0.5-3.6 ng/ml Creatine Kinase MB Ratio 2.7 0-3.0 Troponin I 0.235 0-0.045 ng/ml Pro-B-Type Natriuretic Peptide 95 0-900 pg/ml Total Protein 6.5 6.4-8.2 gm/dl Albumin 2.8 3.4-5.0 gm/dl Globulin 3.7 2.5-4.0 gm/dl Albumin/Globulin Ratio 0.8 0.9-[address] chest 1. Extensive bilateral pulmonary emboli, including emboli within the right and left main pulmonary arteries. No CT of the right heart strain. No pulmonary infarct. 2. A few small subpleural nodules which are likely benign but a follow-up chest CT in one year to ensure stability is recommended. 3. Cholelithiasis. US RLE Deep venous thrombus within the left common femoral, superficial femoral, posterior tibial, peroneal and anterior tibial veins. Several vessels are expanded and thrombus is occlusive within several vessels. EKG Sinus tach - no strain pattern Impression Assessment and Plan 71 y/o F Hx advanced dementia, hypothyroidism, depression. Pt has had progressive swelling and pain of her LLE. In addition, her family describe exertional dyspnea and a bluish discoloration of her lips. She is a poor historian but denies any CP, N/V, dysuria or fevers. A LLE ultrasound revealed an extensive occlusive DVT. A CTA revealed extensive B/L PEs. The pts initial troponin is elevated. She exhibits mild tachycardia but is otherwise stable on admission. 1) DVT and PE - no inciting factors are reported - placed on BID Lovenox - assigned to telemetry overnight. She is hemodynamically stable although her troponin is elevated which may indicate a degree of strain. She may merit a malignancy workup. I have explained to her family that considering her dementia they should likely consult their MD prior to pursuing such a workup. A hypercoag workup is unlikely to be helpful as this is a life- threatening event without any obvious incitement. 2) Hypothyroidism - cont Synthroid 3) Dementia - prescribed Namenda and Aricept - has good family support. Full code - full dose Lovenox Total time for this admit including review of labs, meds, EKG, imaging - discussion with pt, family, ER attending - 40 min Level of Care Telemetry Resuscitation Status FULL RESUSCITATION VTE Prophylaxis Given or contraindicated: Enoxaparin (Lovenox)SQ
[2017-06-03 23:47] LABS: URINE APPEARANCE CLEAR (CLEAR); URINE BILIRUBIN NEG (NEG); URINE COLOR YELLOW; URINE NITRITE NEG (NEG); URINE SPECIFIC GRAVITY 1.029 (1.000-1.030); UROBILINOGEN NEG (NEG)
[2017-06-03 23:50] LABS: MANUAL MICROSCOPIC REQUIRED? NO; REVIEW REQ? NO
[2017-06-04] VITALS (9 sets, daily range): BP systolic 127–169; BP diastolic 78–88; PULSE 76–93; TEMP 36.5–37; O2SAT 92–97; Ht 157.5 cm; Wt 55.8 kg
[2017-06-04] MEDS ORDERED: NURSING VERBAL MED ORDER ONE ×3 (01:45→20:45)
[2017-06-04] MEDS ORDERED: NSS + 20MEQ KCL 1000ML 1,000 ML IV SCH (01:45)
[2017-06-04] MEDS ORDERED: MIRTAZAPINE TAB 15 MG TAB PO ONE (02:00)
[2017-06-04] MEDS ORDERED: CITALOPRAM 20 MG TAB PO ONE (02:00)
[2017-06-04] MEDS ORDERED: SIMVASTATIN 20 MG TAB PO ONE (02:00)
[2017-06-04] MEDS ORDERED: ENOXAPARIN 60 MG/0.6 ML SYR SQ ONE (02:00)
[2017-06-04] MEDS ORDERED: SERT25TA PO (02:14)
[2017-06-04] MEDS ORDERED: CITA10TA4 PO (02:17)
[2017-06-04] MEDS ORDERED: OLAN-80 PO (02:30)
[2017-06-04] MEDS ORDERED: MELA1TAB5 PO (02:32)
[2017-06-04] MEDS: SIMVASTATIN 20 MG TAB PO SCH ×2 (06:22→20:05)
[2017-06-04] MEDS: LEVOTHYROXINE 75 MCG TAB PO SCH (06:23)
[2017-06-04] MEDS: DONEPEZIL HCL 10 MG TAB PO SCH (07:15)
[2017-06-04] MEDS: MEMANTINE 10 MG TAB PO SCH ×2 (07:16→20:06)
[2017-06-04] MEDS: CHOLECALCIFEROL 1000 INTER.UNIT TAB PO SCH (07:16)
[2017-06-04] MEDS: ASPIRIN 81 MG ECTAB PO SCH (07:16)
[2017-06-04] MEDS: LORAZEPAM 0.5 MG TAB PO SCH ×2 (07:17→21:00)
[2017-06-04 07:23] LABS: HEMATOCRIT 34.4 % (37-47); MEAN CELL VOLUME 90.5 fL (80-100); MEAN CORPUSCULAR HGB CONC 33.1 g/dl (32-36); MEAN PLATELET VOLUME 10.6 fL (7.4-10.4); PLATELET COUNT 151 K/uL (130-400); WHITE BLOOD COUNT 11.28 K/uL (4.8-10.8)
[2017-06-04 07:58] LABS: BUN/CREATININE RATIO 17.6 (10-20); CALCIUM 8.9 mg/dl (8.5-10.1); CREATININE 0.7 mg/dl (0.60-1.20); MAGNESIUM 2.1 mg/dl (1.8-2.4); POTASSIUM 3.4 mmol/L (3.5-5.1)
[2017-06-04] MEDS ORDERED: PNEUMOCOCCAL POLYSACCHARIDES 25 MCG/0.5 ML VIAL/SYR IM. ONE (08:00)
[2017-06-04] MEDS ORDERED: PNEUMOCOCCAL ADMINISTRATION CHARGE ONE (08:00)
--- NOTE | 2017-06-04 11:50 | ECHOCARDIOGRAM REPORT ---
*NOTICE TO RECEIVING [facility] [facility] This information is strictly Confidential and protected under [place] law. [place] law prohibits you from making any further disclosure of this information unless further disclosure is expressly permitted by the written consent of the person to whom it pertains or is authorized by law. A general authorization for the release of medical or other information is not sufficient for this purpose. Hospital accepts no responsibility if the information is made available to any other person, INCLUDING THE PATIENT. Interpretation Summary * Name: WAYNE WILKINS Study Date: 06/04/2017 08:54 AM BP: 132/84 mmHg * Patient Location: C.2T\S\S242\S\1 HR: 88 * : 1945 (M/d/yyy) Gender: Female Height: 62 in * Age: 71 yrs Ethnicity: [place] Weight: 123 lb * Ordering Physician: Ahmet Spicer * Referring Physician: Self, Referred * Performed By: Frannie Biggs RCS * * Reason For Study: RT STRAIN * BSA: 1.6 m2 * -- Conclusions -- * Left ventricular systolic function is normal. * Grade I diastolic dysfunction, (abnormal relaxation pattern). * The right ventricular systolic function is mildly reduced. * There are regional wall motion abnormalities. * Meneses's sign (RV strain) is suggested * Right ventricular systolic pressure is elevated at 30-40mmHg. Procedure Details * A complete two-dimensional transthoracic echocardiogram was performed (2D, M-mode, Doppler and color flow Doppler). Left Ventricle * The left ventricle is normal in size. * There is normal left ventricular wall thickness. * Left ventricular systolic function is normal. * Grade I diastolic dysfunction, (abnormal relaxation pattern). * Ejection Fraction = 55-60%. * The left ventricular wall motion is normal. Right Ventricle * The right ventricle is grossly normal size. * The right ventricular systolic function is mildly reduced. Atria * The left atrial size is normal. * Right atrial size is normal. Mitral Valve * The mitral valve is grossly normal. * Significant mitral regurgitation is absent. Tricuspid Valve * The tricuspid valve is not well visualized, but is grossly normal. * There is trace tricuspid regurgitation. * Right ventricular systolic pressure is elevated at 30-40mmHg. Aortic Valve * The aortic valve is not well visualized. * No hemodynamically significant valvular aortic stenosis. * There is no significant aortic regurgitation. Great Vessels * The aortic root is normal size. Pericardium/Pleural * There is no pericardial effusion. Right Ventricle * There are regional wall motion abnormalities. * Meneses's sign (RV strain) is suggested Great Vessels * IVC not visualized MMode 2D Measurements and Calculations IVSd 0.99 cm IVSs 1.3 cm LVIDd 3.3 cm LVIDs 2.0 cm LVPWd 1.2 cm LVPWs 1.1 cm IVS/LVPW 0.83 FS 39.7 % EDV(Teich) 42.9 ml ESV(Teich) 12.2 ml EF(Teich) 71.6 % EDV(cubed) 34.7 ml ESV(cubed) 7.6 ml EF(cubed) 78.1 % % IVS thick 31.6 % % LVPW thick -120 % LV mass(C)d 106.8 grams LV mass(C)dI 68.7 grams/m\S\2 LV mass(C)s 61.8 grams LV mass(C)sI 39.7 grams/m\S\2 SV(Teich) 30.7 ml SI(Teich) 19.8 ml/m\S\2 SV(cubed) 27.1 ml SI(cubed) 17.4 ml/m\S\2 Ao root diam 2.6 cm Ao root area 5.3 cm\S\2 ACS 1.7 cm LA dimension 1.8 cm LA/Ao 0.68 LVOT diam 1.8 cm LVOT area 2.5 cm\S\2 LVAd ap4 24.8 cm\S\2 LVLd ap4 7.1 cm EDV(MOD-sp4) 69.6 ml EDV(sp4-el) 73.8 ml LVAs ap4 11.1 cm\S\2 LVLs ap4 5.2 cm ESV(MOD-sp4) 19.8 ml ESV(sp4-el) 19.9 ml EF(MOD-sp4) 71.6 % EF(sp4-el) 73.0 % LVAd ap2 24.3 cm\S\2 LVLd ap2 7.5 cm EDV(MOD-sp2) 64.0 ml EDV(sp2-el) 66.6 ml LVAs ap2 13.7 cm\S\2 LVLs ap2 6.2 cm ESV(MOD-sp2) 26.4 ml ESV(sp2-el) 25.9 ml EF(MOD-sp2) 58.7 % EF(sp2-el) 61.2 % LVLd %diff 5.7 % EDV(MOD-bp) 68.4 ml LVLs %diff 15.5 % ESV(MOD-bp) 24.9 ml EF(MOD-bp) 63.5 % SV(MOD-sp4) 49.8 ml SI(MOD-sp4) 32.0 ml/m\S\2 SV(MOD-sp2) 37.6 ml SI(MOD-sp2) 24.2 ml/m\S\2 SV(MOD-bp) 43.5 ml SI(MOD-bp) 28.0 ml/m\S\2 SV(sp4-el) 53.9 ml SI(sp4-el) 34.7 ml/m\S\2 SV(sp2-el) 40.8 ml SI(sp2-el) 26.2 ml/m\S\2 Doppler Measurements and Calculations MV E max edel 83.0 cm/sec MV A max edel 111.1 cm/sec MV E/A 0.75 MV P1/2t max edel 90.6 cm/sec MV P1/2t 44.5 msec MVA(P1/2t) 4.9 cm\S\2 MV dec slope 595.9 cm/sec\S\2 MV dec time 0.18 sec Ao V2 max 129.5 cm/sec Ao max PG 6.7 mmHg Ao max PG (full) 3.2 mmHg RITO(V,A) 1.8 cm\S\2 RITO(V,D) 1.8 cm\S\2 LV V1 max PG 3.5 mmHg LV V1 max 93.3 cm/sec PA V2 max 128.3 cm/sec PA max PG 6.6 mmHg TR max edel 266.6 cm/sec
[2017-06-04] MEDS: CITALOPRAM 20 MG TAB PO SCH (14:36)
[2017-06-04] MEDS ORDERED: ENOXAPARIN 60 MG/0.6 ML SYR SQ SCH (16:00)
--- NOTE | 2017-06-04 18:13 | Progress Note ---
Subjective Date of Service: Jun 04, 2017. Subjective Pt evaluation today including: conversation w/ patient, conversation w/ family , physical exam, chart review, lab review, review of studies, review of inpatient medication list Feeling okay, no difficult breathing or chest pain, left lower cough swelling, but no pain Review of Systems Constitutional: + weakness, + fatigue, No fever, No chills, No sweats, No problem reported Eyes: No worsening of vision, No eye pain, No redness, No discharge, No diplopia ENT: No hearing loss, No unusual epistaxis, No nasal symptoms, No sore throat, No tinnitus, No dental problems, No trouble swallowing Respiratory: No cough, No sputum, No wheezing, No shortness of breath, No dyspnea on exertion, No dyspnea at rest, No hemoptysis Cardiac: No chest pain, No orthopnea, No PND, No edema, No claudication, No palpitations Abdomen: No pain, No nausea, No vomiting, No diarrhea, No constipation Musculoskeletal: + see HPI, + muscle pain, No joint pain, No swelling, No calf pain Female : No dysuria, No urinary frequency, No hematuria, No incontinence, No abnormal vaginal bleeding, No vaginal discharge Neurologic: No memory loss, No paralysis, No weakness, No numbness/tingling, No vertigo, No balance problems Psychiatric: No depression symptoms, No anhedonism, No anxiety, No insomnia, No substance abuse Heme: No abnormal bleeding/bruising, No clotting problems, No swollen lymph nodes, No night sweats Endo: + fatigue, No excessive thirst, No excessive urination Skin: No rash, No itch, No new/changing skin lesions, No color change, No bleeding Objective Vital Signs Date Time Temp Pulse Resp B/P (MAP) Pulse Ox O2 Delivery O2 Flow Rate FiO2 06/04/17 16:00 Room Air 06/04/17 15:34 36.9 84 20 152/85 (107) 97 Room Air 06/04/17 12:01 93 Room Air 06/04/17 10:37 36.5 88 16 127/78 (94) 94 Room Air 06/04/17 08:01 93 Room Air 06/04/17 06:53 36.8 81 18 132/84 (100) 93 Room Air 06/04/17 04:15 37.0 76 18 138/83 (101) 93 Nasal Cannula 06/04/17 04:00 92 Room Air 06/04/17 01:00 36.6 88 20 150/85 95 Room Air 06/04/17 00:36 86 19 160/82 94 06/03/17 23:18 70 159/89 95 06/03/17 21:18 95 Room Air 06/03/17 20:24 36.6 88 18 171/81 Room Air Physical Exam General Appearance: WD/WN, no apparent distress Eyes: normal inspection, PERRL, EOMI, sclerae normal ENT: normal ENT inspection, hearing grossly normal, pharynx normal Neck: supple, no adenopathy, thyroid normal, no JVD, no carotid bruits, trachea midline Respiratory/Chest: chest non-tender, lungs clear, normal breath sounds, no respiratory distress, no accessory muscle use, + decreased breath sounds Cardiovascular: regular rate, rhythm, no edema, no gallop, no JVD, no murmur Abdomen: normal bowel sounds, non tender, soft, no organomegaly, no pulsatile mass Extremities: normal range of motion, normal inspection, no calf tenderness, normal capillary refill, pelvis stable, + pertinent finding (left calf swollen, mild tender in palpation) 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, no motor/sensory deficits, alert, normal mood/affect, oriented x 3 Skin: normal color, warm/dry, no rash Lymphatic: no adenopathy Laboratory Results Last 24 Hours Test 06/03/17 21:05 06/03/17 22:47 06/03/17 23:17 06/04/17 07:08 White Blood Count 10.58 K/uL 11.28 K/uL Red Blood Count 4.21 M/uL 3.80 M/uL Hemoglobin 12.4 g/dL 11.4 g/dL Hematocrit 39.0 % 34.4 % Mean Corpuscular Volume 92.6 fL 90.5 fL Mean Corpuscular Hemoglobin 29.5 pg 30.0 pg Mean Corpuscular Hemoglobin Concent 31.8 g/dl 33.1 g/dl Platelet Count 164 K/uL 151 K/uL Mean Platelet Volume 11.2 fL 10.6 fL Neutrophils (%) (Auto) 72.2 % Lymphocytes (%) (Auto) 16.3 % Monocytes (%) (Auto) 10.0 % Eosinophils (%) (Auto) 1.0 % Basophils (%) (Auto) 0.3 % Neutrophils # (Auto) 7.64 K/uL Lymphocytes # (Auto) 1.72 K/uL Monocytes # (Auto) 1.06 K/uL Eosinophils # (Auto) 0.11 K/uL Basophils # (Auto) 0.03 K/uL RDW Standard Deviation 47.6 fL 46.7 fL RDW Coefficient of Variation 14.0 % 13.9 % Immature Granulocyte % (Auto) 0.2 % Immature Granulocyte # (Auto) 0.02 K/uL Sodium Level 144 mmol/L 145 mmol/L Potassium Level 3.5 mmol/L 3.4 mmol/L Chloride Level 109 mmol/L 113 mmol/L Carbon Dioxide Level 26 mmol/L 25 mmol/L Anion Gap 9.0 mmol/L 7.0 mmol/L Blood Urea Nitrogen 17 mg/dl 12 mg/dl Creatinine 0.80 mg/dl 0.70 mg/dl Est Creatinine Clear Calc Drug Dose 51.8 ml/min 59.2 ml/min Estimated GFR () 86.6 101.7 Estimated GFR (Non- 74.7 87.8 BUN/Creatinine Ratio 21.3 17.6 Random Glucose 108 mg/dl 88 mg/dl Calcium Level 8.6 mg/dl 8.9 mg/dl Total Bilirubin 0.2 mg/dl Aspartate Amino Transf (AST/SGOT) 24 U/L Alanine Aminotransferase (ALT/SGPT) 22 U/L Alkaline Phosphatase 101 U/L Total Creatine Kinase 56 U/L Creatine Kinase MB 1.5 ng/ml Creatine Kinase MB Ratio 2.7 Troponin I 0.235 ng/ml 0.163 ng/ml Pro-B-Type Natriuretic Peptide 95 pg/ml Total Protein 6.5 gm/dl Albumin 2.8 gm/dl Globulin 3.7 gm/dl Albumin/Globulin Ratio 0.8 Prothrombin Time 11.2 SECONDS Prothromb Time International Ratio 1.0 Activated Partial Thromboplast Time 31.3 SECONDS Partial Thromboplastin Ratio 1.2 Urine Color YELLOW Urine Appearance CLEAR Urine pH 7.0 Urine Specific [place] 1.029 Urine Protein NEG Urine Glucose (UA) NEG Urine Ketones NEG Urine Occult Blood TRACE Urine Nitrite NEG Urine Bilirubin NEG Urine Urobilinogen NEG Urine Leukocyte Esterase TRACE Urine WBC (Auto) 1-5 /hpf Urine RBC (Auto) 5-10 /hpf Urine Hyaline Casts (Auto) 0 /lpf Urine Epithelial Cells (Auto) 10-20 /lpf Urine Bacteria (Auto) NEG Magnesium Level 2.1 mg/dl Test 06/04/17 14:09 Assessment and Plan 71 y/o F Hx advanced dementia, hypothyroidism, depression admitted because of acute DVT and extensive PE on 06/04/2017 Per report, has had progressive swelling and pain of her LLE, her family describe exertional dyspnea and a bluish discoloration of her lips. In emergency known , A LLE ultrasound revealed an extensive occlusive DVT. A CTA revealed extensive B/L PEs. The pts initial troponin is elevated. She exhibits mild tachycardia but is otherwise stable on admission. Acute DVT and PE , stable, no hypoxia and no chest pain no inciting factors are reported, Has been on on BID Lovenox Continue telemetry Discussed with family, offer the options of oral anticoagulants, continue Lovenox, will check Xarelto or co-pay, increase activity, PT OT Patient has presents okay to go to rehabilitation if needed A few small subpleural nodules in the chest CT which are likely benign but a follow-up chest CT in one year to ensure stability is recommended, has told patient and family about Cholelithiasis in the chest CT, advised to follow-up with PCP Hypothyroidism - cont Synthroid Dementia - prescribed Namenda and Aricept - has good family support. Full code - full dose Lovenox Continued [facility] stay due to: home environment unsafe for pt Discharge planning: home
[2017-06-04] MEDS: SERTRALINE HCL 50 MG TAB PO SCH (20:06)
[2017-06-04] MEDS: RIVAROXABAN TAB 15 MG TAB PO SCH (20:09)
[2017-06-04] MEDS ORDERED: CITALOPRAM 20 MG TAB PO SCH (21:00)
[2017-06-04] MEDS: OLANZAPINE 2.5 MG TAB PO SCH (21:35)
[2017-06-04] MEDS: MIRTAZAPINE TAB 15 MG TAB PO SCH (21:36)
[2017-06-05] VITALS (11 sets, daily range): BP systolic 105–158; BP diastolic 67–97; PULSE 78–107; TEMP 36.6–37.4; O2SAT 93–96
[2017-06-05] MEDS: LEVOTHYROXINE 75 MCG TAB PO SCH (06:21)
[2017-06-05] MEDS: RIVAROXABAN TAB 15 MG TAB PO SCH ×2 (07:45→21:11)
[2017-06-05] MEDS: CITALOPRAM 20 MG TAB PO SCH (07:45)
[2017-06-05] MEDS: ASPIRIN 81 MG ECTAB PO SCH (07:45)
[2017-06-05] MEDS: MEMANTINE 10 MG TAB PO SCH ×2 (07:46→21:11)
[2017-06-05] MEDS: DONEPEZIL HCL 10 MG TAB PO SCH (07:46)
[2017-06-05] MEDS: CHOLECALCIFEROL 1000 INTER.UNIT TAB PO SCH (07:46)
[2017-06-05] MEDS: LORAZEPAM 0.5 MG TAB PO SCH ×2 (07:48→21:00)
[2017-06-05 08:41] LABS: THYROXINE (T4) 10.3 mcg/dl (4.5-10.9)
[2017-06-05 08:42] LABS: T3 TOTAL 0.85 ng/ml (0.60-1.81)
[2017-06-05 08:45] LABS: BUN/CREATININE RATIO 20.3 (10-20); CALCIUM 9.2 mg/dl (8.5-10.1); CREATININE 0.72 mg/dl (0.60-1.20); MAGNESIUM 2.2 mg/dl (1.8-2.4); POTASSIUM 3.4 mmol/L (3.5-5.1)
--- NOTE | 2017-06-05 17:54 | Progress Note ---
Subjective Date of Service: Jun 05, 2017. Subjective Pt evaluation today including: conversation w/ patient, conversation w/ family , physical exam, chart review, lab review, review of studies, conversation w/ marketing consultant, review of inpatient medication list Feeling generalized weakness, however is able to up with therapist for evaluation No complaint, eating fairly Review of Systems Constitutional: No fever, No chills, No sweats, No weight loss, No weakness, No fatigue, No problem reported Eyes: No worsening of vision, No eye pain, No redness, No discharge, No diplopia ENT: No hearing loss, No unusual epistaxis, No nasal symptoms, No sore throat, No tinnitus, No dental problems, No trouble swallowing Respiratory: No cough, No sputum, No wheezing, No shortness of breath, No dyspnea on exertion, No dyspnea at rest, No hemoptysis Cardiac: No chest pain, No orthopnea, No PND, No edema, No claudication, No palpitations Abdomen: No pain, No nausea, No vomiting, No diarrhea, No constipation Musculoskeletal: No joint pain, No muscle pain, No swelling, No calf pain Female : No dysuria, No urinary frequency, No hematuria, No incontinence, No abnormal vaginal bleeding, No vaginal discharge Neurologic: No memory loss, No paralysis, No weakness, No numbness/tingling, No vertigo, No balance problems Psychiatric: No depression symptoms, No anhedonism, No anxiety, No insomnia, No substance abuse Heme: No abnormal bleeding/bruising, No clotting problems, No swollen lymph nodes, No night sweats Endo: No fatigue, No excessive thirst, No excessive urination Skin: No rash, No itch, No new/changing skin lesions, No color change, No bleeding Objective Vital Signs Date Time Temp Pulse Resp B/P (MAP) Pulse Ox O2 Delivery O2 Flow Rate FiO2 06/05/17 16:30 93 Room Air 06/05/17 14:45 37.2 87 17 105/67 (80) 96 Room Air 06/05/17 12:00 81 06/05/17 12:00 93 Room Air 06/05/17 10:55 37.1 78 19 131/86 (101) 95 Room Air 06/05/17 09:23 97 95 06/05/17 08:00 93 Room Air 06/05/17 07:10 37.1 79 16 144/77 (99) 93 Room Air 06/05/17 04:38 36.8 107 16 119/86 (97) 94 Room Air 06/05/17 04:00 Room Air 06/05/17 00:16 36.6 92 18 158/97 (117) 96 Room Air 06/05/17 00:01 Room Air 06/04/17 20:00 Room Air 06/04/17 19:06 36.7 93 18 169/88 (115) 95 Room Air Physical Exam General Appearance: WD/WN, no apparent distress Eyes: normal inspection, PERRL, EOMI, sclerae normal ENT: normal ENT inspection, hearing grossly normal, pharynx normal Neck: supple, no adenopathy, thyroid normal, no JVD, no carotid bruits, trachea midline Respiratory/Chest: chest non-tender, normal breath sounds, no respiratory distress, no accessory muscle use, + decreased breath sounds Cardiovascular: regular rate, rhythm, no edema, no gallop, no JVD, no murmur Abdomen: normal bowel sounds, non tender, soft, no organomegaly, no pulsatile mass Extremities: normal range of motion, non-tender, normal inspection, no pedal edema, no calf tenderness, normal capillary refill, pelvis stable 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, no motor/sensory deficits, alert, normal mood/affect, oriented x 3 Skin: normal color, warm/dry, no rash Lymphatic: no adenopathy Laboratory Results Last 24 Hours Test 06/04/17 19:01 06/05/17 06:58 06/05/17 08:00 Thyroid Stimulating Hormone (TSH) 0.181 uIu/ml Sodium Level 144 mmol/L Potassium Level 3.4 mmol/L Chloride Level 111 mmol/L Carbon Dioxide Level 25 mmol/L Anion Gap 8.0 mmol/L Blood Urea Nitrogen 15 mg/dl Creatinine 0.72 mg/dl Est Creatinine Clear Calc Drug Dose 57.5 ml/min Estimated GFR () 98.3 Estimated GFR (Non- 84.9 BUN/Creatinine Ratio 20.3 Random Glucose 90 mg/dl Calcium Level 9.2 mg/dl Magnesium Level 2.2 mg/dl Thyroxine (T4) 10.3 mcg/dl Total Triiodothyronine 0.85 ng/ml Assessment and Plan 71 y/o F Hx advanced dementia, hypothyroidism, depression admitted because of acute DVT and extensive PE on 06/04/2017 Per report, has had progressive swelling and pain of her LLE, her family describe exertional dyspnea and a bluish discoloration of her lips. In emergency known , A LLE ultrasound revealed an extensive occlusive DVT. A CTA revealed extensive B/L PEs. The pts initial troponin is elevated. She exhibits mild tachycardia but is otherwise stable on admission. Acute DVT and PE , continue stable, no hypoxia and no chest pain no inciting factors are reported, Has been on on BID Lovenox , which was change to oral Xarelto Has detailed consultation about pros and cons of the anticoagulation, with patient and daughter in bedside, they're wiling to take on the risk of blood thinner A few small subpleural nodules in the chest CT which are likely benign but a follow-up chest CT in one year to ensure stability is recommended, has told patient and family about Cholelithiasis in the chest CT, advised to follow-up with PCP Hypothyroidism - cont Synthroid Dementia - prescribed Namenda and Aricept - has good family support. Full code - full dose Lovenox PT recommended acute rehabilitation, will talk to case packer and sealer, possible ready for rehabilitation tomorrow Continued [facility] stay due to: home environment unsafe for pt Discharge planning: home
[2017-06-05] MEDS: MIRTAZAPINE TAB 15 MG TAB PO SCH (21:11)
[2017-06-05] MEDS: SERTRALINE HCL 50 MG TAB PO SCH (21:12)
[2017-06-05] MEDS: OLANZAPINE 2.5 MG TAB PO SCH (21:12)
[2017-06-05] MEDS: SIMVASTATIN 20 MG TAB PO SCH (21:12)
[2017-06-06] VITALS (8 sets, daily range): BP systolic 105–171; BP diastolic 74–98; PULSE 65–97; TEMP 36.5–37; O2SAT 91–95
[2017-06-06] MEDS: LEVOTHYROXINE 75 MCG TAB PO SCH (05:57)
[2017-06-06] MEDS: ASPIRIN 81 MG ECTAB PO SCH (07:46)
[2017-06-06] MEDS: CITALOPRAM 20 MG TAB PO SCH (07:46)
[2017-06-06] MEDS: DONEPEZIL HCL 10 MG TAB PO SCH (07:47)
[2017-06-06] MEDS: MEMANTINE 10 MG TAB PO SCH ×2 (07:48→21:52)
[2017-06-06] MEDS: CHOLECALCIFEROL 1000 INTER.UNIT TAB PO SCH (07:48)
[2017-06-06] MEDS: RIVAROXABAN TAB 15 MG TAB PO SCH ×2 (07:49→21:51)
[2017-06-06] MEDS: LORAZEPAM 0.5 MG TAB PO SCH ×3 (07:50→21:50)
[2017-06-06 08:55] LABS: BUN/CREATININE RATIO 23.5 (10-20); CALCIUM 9.6 mg/dl (8.5-10.1); CREATININE 0.86 mg/dl (0.60-1.20); MAGNESIUM 2.4 mg/dl (1.8-2.4); POTASSIUM 3.6 mmol/L (3.5-5.1)
--- NOTE | 2017-06-06 09:20 | Progress Note ---
Subjective Date of Service: Jun 06, 2017. Subjective Pt evaluation today including: conversation w/ patient, conversation w/ family , physical exam, chart review, lab review, review of studies, review of inpatient medication list Up to chair, no complaining, report eating drinking okay, no constipation or diarrhea Review of Systems Constitutional: No fever, No chills, No sweats, No weight loss, No weakness, No fatigue, No problem reported Eyes: No worsening of vision, No eye pain, No redness, No discharge, No diplopia ENT: No hearing loss, No unusual epistaxis, No nasal symptoms, No sore throat, No tinnitus, No dental problems, No trouble swallowing Respiratory: No cough, No sputum, No wheezing, No shortness of breath, No dyspnea on exertion, No dyspnea at rest, No hemoptysis Cardiac: No chest pain, No orthopnea, No PND, No edema, No claudication, No palpitations Abdomen: No pain, No nausea, No vomiting, No diarrhea, No constipation Musculoskeletal: No joint pain, No muscle pain, No swelling, No calf pain Female : No dysuria, No urinary frequency, No hematuria, No incontinence, No abnormal vaginal bleeding, No vaginal discharge Neurologic: No memory loss, No paralysis, No weakness, No numbness/tingling, No vertigo, No balance problems Psychiatric: No depression symptoms, No anhedonism, No anxiety, No insomnia, No substance abuse Heme: No abnormal bleeding/bruising, No clotting problems, No swollen lymph nodes, No night sweats Endo: No fatigue, No excessive thirst, No excessive urination Skin: No rash, No itch, No new/changing skin lesions, No color change, No bleeding Objective Vital Signs Date Time Temp Pulse Resp B/P (MAP) Pulse Ox O2 Delivery O2 Flow Rate FiO2 06/06/17 08:00 93 Room Air 06/06/17 07:35 36.6 87 18 155/98 (117) 95 Room Air 06/06/17 04:51 36.6 65 18 165/92 (116) 91 171/80 (110) 06/06/17 04:00 Room Air 06/06/17 00:21 37.0 87 18 122/82 (95) 93 06/05/17 20:02 93 Room Air 06/05/17 18:49 37.4 92 18 128/81 (97) 94 Room Air 06/05/17 16:30 93 Room Air 06/05/17 14:45 37.2 87 17 105/67 (80) 96 Room Air 06/05/17 12:00 81 06/05/17 12:00 93 Room Air 06/05/17 10:55 37.1 78 19 131/86 (101) 95 Room Air 06/05/17 09:23 97 95 Physical Exam General Appearance: WD/WN, no apparent distress, + pertinent finding (looks tired,) Eyes: normal inspection, PERRL, EOMI, sclerae normal ENT: normal ENT inspection, hearing grossly normal, pharynx normal Neck: supple, no adenopathy, thyroid normal, no JVD, no carotid bruits, trachea midline Respiratory/Chest: chest non-tender, normal breath sounds, no respiratory distress, no accessory muscle use, + decreased breath sounds Cardiovascular: regular rate, rhythm, no edema, no gallop, no JVD, no murmur Abdomen: normal bowel sounds, non tender, soft, no organomegaly, no pulsatile mass Extremities: normal range of motion, non-tender, normal inspection, no pedal edema, no calf tenderness, normal capillary refill, pelvis stable, + pertinent finding (left lower extremity, mild calf swelling, no calf pain) 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, no motor/sensory deficits, alert, normal mood/affect, oriented x 3 Skin: normal color, warm/dry, no rash Lymphatic: no adenopathy Laboratory Results Last 24 Hours Test 06/06/17 08:17 Sodium Level 142 mmol/L Potassium Level 3.6 mmol/L Chloride Level 112 mmol/L Carbon Dioxide Level 24 mmol/L Anion Gap 6.0 mmol/L Blood Urea Nitrogen 20 mg/dl Creatinine 0.86 mg/dl Est Creatinine Clear Calc Drug Dose 48.2 ml/min Estimated GFR () 79.3 Estimated GFR (Non- 68.4 BUN/Creatinine Ratio 23.5 Random Glucose 124 mg/dl Calcium Level 9.6 mg/dl Magnesium Level 2.4 mg/dl Assessment and Plan 71 y/o F Hx advanced dementia, hypothyroidism, depression admitted because of acute DVT and extensive PE on 06/04/2017 Per report, has had progressive swelling and pain of her LLE, her family describe exertional dyspnea and a bluish discoloration of her lips. In emergency known , A LLE ultrasound revealed an extensive occlusive DVT. A CTA revealed extensive B/L PEs. The pts initial troponin is elevated. She exhibits mild tachycardia but is otherwise stable on admission. Acute DVT and PE , continue stable, Son was concerned at nighttime when she sleep may have desaturation and sleep apnea Will order nighttime pulse ox evaluation, and advise outpatient PCP follow-up, for pulmonary function test For acute PE and DVT , no inciting factors are reported, Has been on on BID Lovenox , which was change to oral Xarelto Has detailed consultation about pros and cons of the anticoagulation, with patient and daughter in bedside, they're wiling to take on the risk of blood thinner A few small subpleural nodules in the chest CT which are likely benign but a follow-up chest CT in one year to ensure stability is recommended, has told patient and family about Cholelithiasis in the chest CT, advised to follow-up with PCP Hypothyroidism - cont Synthroid Dementia - prescribed Namenda and Aricept - has good family support. Full code - full dose Lovenox PT recommended acute rehabilitation, will talk to manager of case management, patient is ready for rehabilitation Will talk to manager of case managementproduce manager to [facility] Continued [facility] stay due to: home environment unsafe for pt Discharge planning: home
[2017-06-06] MEDS: SIMVASTATIN 20 MG TAB PO SCH (21:51)
[2017-06-06] MEDS: OLANZAPINE 2.5 MG TAB PO SCH (21:52)
[2017-06-06] MEDS: MIRTAZAPINE TAB 15 MG TAB PO SCH (21:53)
[2017-06-06] MEDS: SERTRALINE HCL 50 MG TAB PO SCH (22:17)
[2017-06-07 00:40] VITALS: BP 116/75; PULSE 83; TEMP 36.6; O2SAT 92
[2017-06-07] MEDS: LEVOTHYROXINE 75 MCG TAB PO SCH ×2 (06:30→06:36)
[2017-06-07 07:05] LABS: HEMATOCRIT 39.9 % (37-47); MEAN CELL VOLUME 94.1 fL (80-100); MEAN CORPUSCULAR HEMOGLOBIN 29.7 pg (25-34); MEAN CORPUSCULAR HGB CONC 31.6 g/dl (32-36); MEAN PLATELET VOLUME 11.2 fL (7.4-10.4); PLATELET COUNT 238 K/uL (130-400); RED BLOOD COUNT 4.24 M/uL (4.2-5.4); WHITE BLOOD COUNT 10.84 K/uL (4.8-10.8)
[2017-06-07 07:33] LABS: CREATININE 0.81 mg/dl (0.60-1.20)
[2017-06-07 07:35] VITALS: BP 108/71; PULSE 58; TEMP 36.6; O2SAT 95
[2017-06-07] MEDS: LORAZEPAM 0.5 MG TAB PO SCH ×2 (08:00→20:00)
[2017-06-07] MEDS: CITALOPRAM 20 MG TAB PO SCH (08:20)
[2017-06-07] MEDS: DONEPEZIL HCL 10 MG TAB PO SCH (08:20)
[2017-06-07] MEDS: ASPIRIN 81 MG ECTAB PO SCH (08:20)
[2017-06-07] MEDS: RIVAROXABAN TAB 15 MG TAB PO SCH ×2 (08:21→20:52)
[2017-06-07] MEDS: MEMANTINE 10 MG TAB PO SCH ×2 (08:21→20:51)
[2017-06-07] MEDS: CHOLECALCIFEROL 1000 INTER.UNIT TAB PO SCH (08:21)
--- NOTE | 2017-06-07 16:57 | Progress Note ---
Subjective Date of Service: Jun 07, 2017. Subjective Pt evaluation today including: conversation w/ patient, conversation w/ family , physical exam, chart review, lab review, review of studies, conversation w/ review consultant, review of inpatient medication list Sitting up in chair, report eating drinking good, no complaining, denied chest pain, difficulty breathing or dizziness Review of Systems Constitutional: + fatigue, No fever, No chills, No sweats, No weight loss, No weakness, No problem reported Eyes: No worsening of vision, No eye pain, No redness, No discharge, No diplopia ENT: No hearing loss, No unusual epistaxis, No nasal symptoms, No sore throat, No tinnitus, No dental problems, No trouble swallowing Respiratory: No cough, No sputum, No wheezing, No shortness of breath, No dyspnea on exertion, No dyspnea at rest, No hemoptysis Cardiac: No chest pain, No orthopnea, No PND, No edema, No claudication, No palpitations Abdomen: No pain, No nausea, No vomiting, No diarrhea, No constipation Musculoskeletal: No joint pain, No muscle pain, No swelling, No calf pain Female : No dysuria, No urinary frequency, No hematuria, No incontinence, No abnormal vaginal bleeding, No vaginal discharge Neurologic: No memory loss, No paralysis, No weakness, No numbness/tingling, No vertigo, No balance problems Psychiatric: No depression symptoms, No anhedonism, No anxiety, No insomnia, No substance abuse Heme: No abnormal bleeding/bruising, No clotting problems, No swollen lymph nodes, No night sweats Endo: No fatigue, No excessive thirst, No excessive urination Skin: No rash, No itch, No new/changing skin lesions, No color change, No bleeding Objective Vital Signs Date Time Temp Pulse Resp B/P (MAP) Pulse Ox O2 Delivery O2 Flow Rate FiO2 06/07/17 16:00 Room Air 06/07/17 08:00 Room Air 06/07/17 07:35 36.6 58 18 108/71 (83) 95 Room Air 06/07/17 00:40 36.6 83 16 116/75 (89) 92 Room Air 06/07/17 00:00 Room Air Physical Exam General Appearance: WD/WN, no apparent distress Eyes: normal inspection, PERRL, EOMI, sclerae normal ENT: normal ENT inspection, hearing grossly normal, pharynx normal Neck: supple, no adenopathy, thyroid normal, no JVD, no carotid bruits, trachea midline Respiratory/Chest: chest non-tender, normal breath sounds, no respiratory distress, no accessory muscle use, + decreased breath sounds Cardiovascular: regular rate, rhythm, no edema, no gallop, no JVD, no murmur Abdomen: normal bowel sounds, non tender, soft, no organomegaly, no pulsatile mass Extremities: normal range of motion, non-tender, normal inspection, no pedal edema, no calf tenderness, normal capillary refill, pelvis stable 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, no motor/sensory deficits, alert, normal mood/affect, oriented x 3 Skin: normal color, warm/dry, no rash Lymphatic: no adenopathy Laboratory Results Last 24 Hours Test 06/07/17 06:23 White Blood Count 10.84 K/uL Red Blood Count 4.24 M/uL Hemoglobin 12.6 g/dL Hematocrit 39.9 % Mean Corpuscular Volume 94.1 fL Mean Corpuscular Hemoglobin 29.7 pg Mean Corpuscular Hemoglobin Concent 31.6 g/dl RDW Standard Deviation 49.0 fL RDW Coefficient of Variation 14.2 % Platelet Count 238 K/uL Mean Platelet Volume 11.2 fL Creatinine 0.81 mg/dl Est Creatinine Clear Calc Drug Dose 51.1 ml/min Estimated GFR () 85.3 Estimated GFR (Non- 73.6 Assessment and Plan 71 y/o F Hx advanced dementia, hypothyroidism, depression admitted because of acute DVT and extensive PE on 06/04/2017 Per report, has had progressive swelling and pain of her LLE, her family describe exertional dyspnea and a bluish discoloration of her lips. In emergency known , A LLE ultrasound revealed an extensive occlusive DVT. A CTA revealed extensive B/L PEs. The pts initial troponin is elevated. She exhibits mild tachycardia but is otherwise stable on admission. Acute DVT and PE , continue stable, Son was concerned at nighttime when she sleep may have desaturation and sleep apnea i advised outpatient PCP follow-up, for pulmonary function test For acute PE and DVT , no inciting factors are reported, Has been on on BID Lovenox , which was change to oral Xarelto Has detailed consultation about pros and cons of the anticoagulation, with patient and daughter in bedside, they're wiling to take on the risk of blood thinner A few small subpleural nodules in the chest CT which are likely benign but a follow-up chest CT in one year to ensure stability is recommended, has told patient and family about Cholelithiasis in the chest CT, advised to follow-up with PCP Hypothyroidism - cont Synthroid Dementia - prescribed Namenda and Aricept - has good family support. Full code - full dose Lovenox PT recommended acute rehabilitation, Patient's daughter wanted to bring patient home today instead of going to the longterm because she more worry about in rehabilitation facilities may have high risks of fall because possible the staff not watching patient 24 7 around the clock. I convinced daughter that to initiate fall precaution, every 15 minutes checking, arrange patient more closer to nursing station, and I also encourage patient's daughter to have more conversation with the staff in the rehabilitation facility about a concerns, daughter agree to move forward continue looking into rehab Continued [facility] stay due to: home environment unsafe for pt Discharge planning: rehab hospital
[2017-06-07 20:39] LABS: ANTITHROMBINIII ACTIVITY** 105 % activity (80-120); PROTEIN C ACTIVITY** TC 1777X 83 % (70-180); PROTEIN S ACT(FUNCT)**1779X 110 % (60-140)
[2017-06-07] MEDS: SERTRALINE HCL 50 MG TAB PO SCH (20:51)
[2017-06-07] MEDS: SIMVASTATIN 20 MG TAB PO SCH (20:51)
[2017-06-07] MEDS: MIRTAZAPINE TAB 15 MG TAB PO SCH (20:52)
[2017-06-07] MEDS: OLANZAPINE 2.5 MG TAB PO SCH (20:54)
[2017-06-07 23:55] VITALS: BP 121/77; PULSE 76; TEMP 36.4; O2SAT 92
[2017-06-08] MEDS: LEVOTHYROXINE 75 MCG TAB PO SCH (06:24)
[2017-06-08 08:11] VITALS: BP 115/77; PULSE 80; TEMP 36.7; O2SAT 93
[2017-06-08] MEDS: RIVAROXABAN TAB 15 MG TAB PO SCH (08:44)
[2017-06-08] MEDS: CHOLECALCIFEROL 1000 INTER.UNIT TAB PO SCH (08:44)
[2017-06-08] MEDS: ASPIRIN 81 MG ECTAB PO SCH (08:44)
[2017-06-08] MEDS: MEMANTINE 10 MG TAB PO SCH (08:44)
[2017-06-08] MEDS: LORAZEPAM 0.5 MG TAB PO SCH (08:45)
[2017-06-08] MEDS: DONEPEZIL HCL 10 MG TAB PO SCH (08:45)
[2017-06-08] MEDS: CITALOPRAM 20 MG TAB PO SCH (08:45)
[2017-06-08] MEDS ORDERED: XRL15 PO (09:17)
[2017-06-08] MEDS ORDERED: CLX20 PO (09:17)
[2017-06-08] MEDS ORDERED: LORA0.5T12 PO (09:17)
[2017-06-08] MEDS ORDERED: ZLF50 PO (09:17)
--- NOTE | 2017-06-08 09:18 | Discharge Instructions ---
Discharge Instructions Date of Service Jun 08, 2017. Admission Reason for Admission: Dvt, Pulmonary Embolism Discharge Discharge Diagnosis / Problem: acute DVT and extensive PE Discharge Goals Goal(s): Decrease discomfort, Improve function, Increase independence, Improve disease control, Improve nutritional status, Learn about illness, Diagnostic testing, Therapeutic intervention, Prevent Disease Progression, Specific goals Activity Recommendations Activity Level: Up Ad [place], OOB In Chair (fall precaution) Therapies: Physical Therapy, Occupational Therapy . Additional Information Patient informed of condition: Yes Advance Directives: No DNR: No Level of Care: Acute Rehab Communicable Disease: No Prognosis: Other (guarded) Oxygen at (LPM): no [place] Catheter: No Instructions / Follow-Up Instructions / Follow-Up you have Acute DVT and PE , continue stable, you are on blood thinner of Xarelto, this medicine has been on for 4 days, need to continue for 17 days more , after total 21 days of 15 mg po bid, it need to change to 20mg po daily , you need to follow up with your pcp about this your son was concerned at nighttime when you sleep may have desaturation and sleep apnea i advised outpatient PCP follow-up, for pulmonary function test you have a few small subpleural nodules in the chest CT you need to see by your pcp for a follow-up chest CT in one year to ensure stability you have Cholelithiasis in the chest CT, advised to follow-up with PCP RN in [place], please check more carefully of risks fo fall , every 15 minutes checking if needs, arrange patient more closer to nursing station, - you need to follow up with your primary care physician in 1 week, - take medication as instructed, never overdose or any misuse, or take with alcohol, because misuse of medicine may cause organ damage or , call your primary care physician if have questions of medicaitons. - call your primary care physician OR go to local emergency room if has any fever/chill, chest pain, shortness of breathing, nausea/vomiting/abdominal pain , facial droop/slurry speech/local weakness, or if has any questions. - fall precaution - diet as instructed - you need to follow up with your subspecialist - you should understand that it is important to follow up the above instruction , and "not following the above instruction" may cause delayed or missed care of your medical conditions which may cause permanent organ damage and even . Current Hospital Diet Patient's current hospital diet: AHA Diet (Heart Healthy) Discharge Diet Recommended Diet: AHA Diet (Heart Healthy) Procedures Procedures Performed: no Pending Studies Studies pending at discharge: no Physician Orders On Transfer POLST Discussion: without POLST completion Medical Emergencies . Who to Call and When: Medical Emergencies: If at any time you feel your situation is an emergency, please call 911 immediately. . Non-Emergent Contact Non-Emergency issues call your: Primary Care Provider . . "Provider Documentation" section prepared by Deondre Caldwell. . Core Measure Problem Core Measures: VTE VTE Core Measures Date of VTE Diagnosis: Jun 03, 2017 Time of VTE Diagnosis: 20:47 Reason no anticoag overlap I/P: Treatment provided - N/A Reason no anticoag overlap @DC: Treatment provided - N/A
[2017-06-08 09:29] VITALS: BP 115/77; PULSE 80; TEMP 36.7; O2SAT 93
--- NOTE | 2017-06-08 09:47 | Discharge Summary ---
Discharge Summary Date of Service Jun 08, 2017. Discharge Summary Admission Date: Jun 03, 2017 at 23:19 Discharge Date: Jun 08, 2017 Principal Diagnosis: Acute DVT and PE Problems/Secondary Diagnoses: dementia Procedures: no Consultations: no Medication Reconciliation New Medications: Citalopram (Citalopram Hydrobromide) 20 Mg Tab 20 MG PO QAM for 30 Days, TAB Rivaroxaban (Xarelto) 15 Mg Tab 15 MG PO BID for 17 Days, #34 TAB this medicien has been on for 4 days, need to continue for 17 days, after total 21 days or 15 mg po bid, then change to 20mg po daily , pcp please follow up Sertraline HCl (Sertraline HCl) 50 Mg Tab 50 MG PO HS for 30 Days, TAB Continued Medications: Aspirin Enteric Coated (Ecotrin Or Generic) 81 Mg Tab 81 MG PO DAILY, TAB Cholecalciferol (Vitamin D3) 1,000 Unit Tab 1000 UNITS PO DAILY for 90 Days, TAB 3 Refills Citalopram Hydrobromide (Citalopram Hydrobromide) 10 Mg Tab 3 TAB PO DAILY for 30 Days, #90 TAB 3 Refills Donepezil Hydrochloride (Donepezil Hcl) 10 Mg Tab 10 MG PO DAILY Levothyroxine Sodium (Levothyroxine Sodium) 75 Mcg Tab 75 MCG PO DAILY for 90 Days, #90 TAB 3 Refills Lorazepam (Lorazepam) 0.5 Mg Tab 0.5 MG PO BID for 3 Days, #9 (This prescription has been renewed) son states that medication is given by home nursing agency [id number] and 1300 Melatonin ( Melatonin) 3 Mg Tab 2 TAB PO HS for 30 Days, #30 TAB 2 Refills Memantine Hcl (Namenda) 10 Mg Tab 10 MG PO BID, TAB Mirtazapine (Remeron) 15 Mg Tab 7.5 MG PO HS, TAB Olanzapine (Zyprexa) 2.5 Mg Tab 2.5 MG PO DAILY, TAB Simvastatin (Zocor) 20 Mg Tab 20 MG PO QPM, TAB Discontinued Medications: Sertraline (Zoloft) 25 Mg Tab 1 TAB PO DAILY for 30 Days, #30 TAB 2 Refills Discharge Exam sitting up in chair, doing ok, mild flat in mood, is not new, son was with her over night, reported have been sleep well, has BM, no dysuria, no other complaints Review of Systems: Constitutional: No fever, No chills, No sweats, No weight loss, No weakness , No fatigue, No problem reported Eyes: No worsening of vision, No eye pain, No redness, No discharge, No diplopia, No problem reported ENT: No hearing loss, No unusual epistaxis, No nasal symptoms, No sore throat, No tinnitus, No dental problems, No trouble swallowing, No problem reported Respiratory: No cough, No sputum, No wheezing, No shortness of breath, No dyspnea on exertion, No dyspnea at rest, No hemoptysis, No problem reported Cardiovascular: No chest pain, No orthopnea, No PND, No edema, No claudication, No palpitations, No problem reported Abdomen: No pain, No nausea, No vomiting, No diarrhea, No constipation, No GI bleeding, No problem reported Musculoskeletal: No joint pain, No muscle pain, No swelling, No calf pain, No problem reported Genitourinary - Female: No dysuria, No urinary frequency, No urinary urgency , No urinary incontinence, No urinary retention, No hematuria, No dysmenorrhea, No menorrhagia, No metrorrhagia, No rash, No vaginal bleeding, No vaginal discharge, No vaginal itching, No vulvodynia, No , No problem reported Neurologic: No memory loss, No paralysis, No weakness, No numbness/tingling , No vertigo, No balance problems, No problem reported Psychiatric: No depression symptoms, No anhedonism, No anxiety, No insomnia , No substance abuse, No problem reported Endocrine: No fatigue, No excessive thirst, No excessive urination, No problem reported Hematologic / Lymphatic: No abnormal bleeding/bruising, No clotting problems , No swollen lymph nodes, No night sweats, No problem reported Integumentary: No rash, No itch, No new/changing skin lesions, No color change, No bleeding, No problem reported Physical Exam: General Appearance: WD/WN, no apparent distress Eyes: normal inspection, PERRL, EOMI ENT: normal ENT inspection, hearing grossly normal Neck: supple, no adenopathy, thyroid normal Respiratory/Chest: chest non-tender, normal breath sounds, no respiratory distress, no accessory muscle use, + decreased breath sounds Cardiovascular: regular rate, rhythm, no edema, no gallop Abdomen / GI: normal bowel sounds, non tender, soft, no organomegaly, no pulsatile mass Extremities: normal inspection, no calf tenderness, no pedal edema 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 In emergency known , A LLE ultrasound revealed an extensive occlusive DVT. A CTA revealed extensive B/L PEs. The pts initial troponin is elevated. She exhibits mild tachycardia but is otherwise stable on admission. Acute DVT and PE , continue stable, For acute PE and DVT , no inciting factors are reported, Has been on on BID Lovenox , which was change to oral Xarelto Has detailed consultation about pros and cons of the anticoagulation, with patient and daughter in bedside, they're wiling to take on the risk of blood thinner is on blood thinner of Xarelto, this medicine has been on for 4 days, need to continue for 17 days more , after total 21 days of 15 mg po bid, it need to change to 20mg po daily , you need to follow up with your pcp about this Son was concerned at nighttime when she sleep may have desaturation and sleep apnea, overnight pulse oxygen monitoring was done and has no hypoxic event i advised outpatient PCP follow-up, for pulmonary function test if needed A few small subpleural nodules in the chest CT which are likely benign but a follow-up chest CT in one year to ensure stability is recommended, has told patient and family about Cholelithiasis in the chest CT, advised to follow-up with PCP Hypothyroidism - cont Synthroid Dementia - prescribed Namenda and Aricept - has good family support. Full code - full dose Lovenox PT recommended acute rehabilitation, Patient's daughter wanted to bring patient home today instead of going to the detention because she more worry about in rehabilitation facilities may have high risks of fall because possible the staff not watching patient 24 7 around the clock. I convinced daughter that to initiate fall precaution, every 15 minutes checking, arrange patient more closer to nursing station, and I also encourage patient's daughter to have more conversation with the staff in the rehabilitation facility about a concerns, daughter agree to move forward continue looking into rehab. patient is in stable and will discharge today Instructions / Follow-Up you have Acute DVT and PE , continue stable, you are on blood thinner of Xarelto, this medicine has been on for 4 days, need to continue for 17 days more , after total 21 days of 15 mg po bid, it need to change to 20mg po daily , you need to follow up with your pcp about this your son was concerned at nighttime when you sleep may have desaturation and sleep apnea i advised outpatient PCP follow-up, for pulmonary function test you have a few small subpleural nodules in the chest CT you need to see by your pcp for a follow-up chest CT in one year to ensure stability you have Cholelithiasis in the chest CT, advised to follow-up with PCP RN in [place], please check more carefully of risks fo fall , every 15 minutes checking if needs, arrange patient more closer to nursing station, - you need to follow up with your primary care physician in 1 week, - take medication as instructed, never overdose or any misuse, or take with alcohol, because misuse of medicine may cause organ damage or , call your primary care physician if have questions of medicaitons. - call your primary care physician OR go to local emergency room if has any fever/chill, chest pain, shortness of breathing, nausea/vomiting/abdominal pain , facial droop/slurry speech/local weakness, or if has any questions. - fall precaution - diet as instructed - you need to follow up with your subspecialist - you should understand that it is important to follow up the above instruction , and "not following the above instruction" may cause delayed or missed care of your medical conditions which may cause permanent organ damage and even . Total Time Spent: Greater than 30 minutes This includes examination of the patient, discharge planning, medication reconciliation, and communication with other providers. Discharge Instructions Please refer to the electronic Patient Visit Report (Discharge Instructions) for additional information. Additional Copies To Sally Harding; Naomi Patterson.
[2017-06-08 16:33] LABS: B2 GLYCOPROTEIN IGA <9 SAU (<=20); B2 GLYCOPROTEIN IGG <9 SGU (<=20); B2 GLYCOPROTEIN IGM <9 SMU (<=20); LUPUS ANTICOAGULANT** TC36573X Positive (Negative)
== END 2017-06-08 12:55 | DRG 299 ==
LOC: C.EDB 20:19 → C.2T 23:19 → ENRESERV 23:28 → C.4E 06-06 10:31 → C.MS4W 06-06 23:16
PROVIDERS: ADMIT Internal Medicine; ATTEND Hospitalist
DX: I82.412 Acute embolism and thrombosis of left femoral vein (principal); I26.99 Other pulmonary embolism without acute cor pulmonale; I82.442 Acute embolism and thrombosis of left tibial vein; I82.492 Acute embolism and thrombosis of other specified deep vein of left lower extremity; E03.9 Hypothyroidism, unspecified; F03.90 Unspecified dementia, unspecified severity, without behavioral disturbance, psychotic disturbance, mood disturbance, and anxiety; F32.9 Major depressive disorder, single episode, unspecified; K80.20 Calculus of gallbladder without cholecystitis without obstruction; R91.8 Other nonspecific abnormal finding of lung field; Z87.891 Personal history of nicotine dependence; Z79.82 Long term (current) use of aspirin; Z79.899 Other long term (current) drug therapy; Z90.710 Acquired absence of both cervix and uterus; Z82.49 Family history of ischemic heart disease and other diseases of the circulatory system

== ENCOUNTER → 2017-08-20 | Outpatient (CLI) | payer OTHER, BC ==
[~2017-08-20] MED LIST changes: +CITA10TA4 PO; +MELA1TAB5 PO; +OLAN-80 PO; +XRL15 PO; +ZLF50 PO
--- NOTE | 2017-08-23 13:49 | POLYSOMNOGRAPH REPORT ---
CLINICAL DATA: A 72-year-old female with BMI of 22.31, referred by GELY Rodriguez and Shiloh Hayes with loud snoring and apneic episodes during recent hospitalization. She also has nocturnal desaturation. On the evening of 08/20/2017, home sleep apnea test was performed using a [employer] type 3 monitor. RECORDING RESULTS: Total recording time was 9.4 hours. The patient monitoring time and estimated sleep time was 7.9 hours. RESPIRATORY DATA: Mild sleep apnea was documented. The EPIFANIO was 11.8. There was 1 obstructive, 3 mixed, and 4 central apneic episodes. There were 85 hypopneic episodes. The longest respiratory event was 60 seconds. OXIMETRY DATA: Nocturnal hypoxemia was seen. Oxygen princess was 83%. Mean saturation was 92%. Time below 89% was 19 minutes. HEART RATE DATA: Heart rates ranged from 66-77 beats per minute. SNORING DATA: Snoring events recorded throughout the night. IMPRESSION: Mild sleep apnea/hypopnea with an EPIFANIO of 11.8 with nocturnal hypoxemia. RECOMMENDATIONS: The patient may benefit from use of an oral appliance, repeat sleep study with CPAP or use of auto CPAP. Clinical correlation is needed.
== END | disposition home or self-care (01) ==
LOC: C.NEUR 09:05
PROVIDERS: ATTEND Physician Assistant Medical
DX: R53.83 Other fatigue (principal); G47.34 Idiopathic sleep related nonobstructive alveolar hypoventilation; R06.83 Snoring; R06.81 Apnea, not elsewhere classified

== ENCOUNTER 2017-09-19 09:56 | Emergency (ER) | payer OTHER, BC ==
[2017-09-19 10:03] VITALS: TEMP 36.7
[2017-09-19] MEDS ORDERED: SODIUM CHLORIDE 0.9% 1000ML 500 ML IV STA (10:39)
--- NOTE | 2017-09-19 10:45 | EMERGENCY ROOM VISIT NOTE ---
History Report prepared by Sj: Leatha Morin Under the Supervision of: Dr. Sourav Umaña M.D. First contact with patient: 10:29 Chief Complaint: FALL Stated Complaint: HIT HEAD (ON BLOOD THINNERS) SAID SHE WAS DIZZY History of Present Illness The patient is a 72 year old female who presents to the Emergency Room with complaints of a sudden unwitnessed fall that occurred three hours ago. Per the patient's son, the patient has a history of dementia. 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 The son states that at 0700 the patient was in the bathroom and he heard a loud thud. He states that he rushed over to the bathroom to find the patient on the toilet. The son states that he feels that the patient hit her head off the wall next to the toilet and then went down onto the toilet. He states that the patient is on Xarelto. The patient's son states that the patient did appear to have a slower response to questioning, but states that it happens from time to time. Additionally he noticed that the patient was more slow and sluggish. The patient's son states that the patient felt lightheaded. He states that the patient has complained of some nausea. The patient's son states that the patient localized her discomfort to the right side of her face and head. He states that recently the patient complained of nasal congestion. The history is limited secondary to the patient's dementia. Source of History: patient, family (son) Onset: three hours ago Position: other (global) Quality: other (fall) Timing: other (sudden) Associated Symptoms: + nausea Note: Associated Symptoms: slow and sluggish, slower to respond, lightheaded Review of Systems The history is limited secondary to the patient's dementia. Past Medical & Surgical Medical Problems: (1) Dementia (2) DVT (deep venous thrombosis) (3) Hypertension (4) Pulmonary embolism (5) Thyroid disease Surgical Problems: (1) Hx of hysterectomy Family History Heart disease Hypertension Social History Smoking Status: Former Smoker Alcohol Use: none Drug Use: none Marital Status: single Housing Status: lives alone Occupation Status: retired Current/Historical Medications Scheduled Aspirin Enteric Coated (Ecotrin Or Generic), 81 MG PO QAM Cholecalciferol (Vitamin D3), 1,000 UNITS PO DAILY Donepezil Hydrochloride (Donepezil Hcl), 10 MG PO QAM Levothyroxine Sodium (Levothyroxine Sodium), 75 MCG PO DAILY Lorazepam (Lorazepam), 0.5 MG PO BID Memantine Hcl (Namenda), 10 MG PO BID Mirtazapine (Remeron), 7.5 MG PO HS Olanzapine (Zyprexa), 1.25 MG PO QAM Rivaroxaban (Xarelto), 20 MG PO QAM Sertraline HCl (Sertraline HCl), 50 MG PO HS Simvastatin (Zocor), 20 MG PO QPM [Melatonin 1MG], 1 MG PO BID Allergies Coded Allergies: No Known Allergies (Verified , 09/19/17) Physical Exam Vital Signs Date Time Temp Pulse Resp B/P (MAP) Pulse Ox O2 Delivery O2 Flow Rate FiO2 09/19/17 13:15 84 18 147/86 94 09/19/17 12:19 75 20 118/71 96 Room Air 09/19/17 12:04 75 118/71 96 Room Air 80 131/88 86 145/85 09/19/17 10:03 36.7 86 18 101/68 93 Room Air Physical Exam GENERAL: Patient is in no acute distress. HEENT: No acute trauma, normocephalic atraumatic, Mucous membranes dry, no nasal congestion, no scleral icterus. NECK: No stridor, no adenopathy, no meningismus, trachea is midline. No posterior c-spine tenderness. LUNGS: Clear to auscultation bilaterally, no wheeze, no rhonchi, breath sounds equal. HEART: Without murmurs gallops or rubs, regular rate and rhythm. ABDOMEN: Soft, nontender, bowel sounds positive, no hernias, no peritonitis. EXTREMITIES: No cyanosis or edema, full range of motion of all the joints without pain or difficulty, no signs for acute trauma. NEUROLOGIC: Dementia noted, moving all extremities equally, awake and alert SKIN: No rash, no jaundice, no diaphoresis. Medical Decision & Procedures ER Provider Diagnostic Interpretation: Orthostatic vital signs are negative Radiology results as stated below per my review and radiologist interpretation: HEAD WITHOUT CONTRAST (CT) CT DOSE: 614.27 mGy.cm HISTORY: Mental status change EVALUATE ALTERED MENTAL STATUS/WEAKNESS TECHNIQUE: Multiaxial CT images of the head were performed without the use of intravenous contrast. A dose lowering technique was utilized adhering to the principles of ALARA. Comparison: 11/15/2016 Findings: The paranasal sinuses and mastoid air cells are clear. Findings of generalized cerebellar as well as cerebral atrophy. Considerable chronic small vessel change of aging. Mild compensatory prominence of the ventricular system. No evidence for acute intracranial hemorrhage. No midline shift. Impression: Chronic and age-related change. No acute process. The above report was generated using voice recognition software. It may contain grammatical, syntax or spelling errors. Electronically signed by: Ramu Sandhu M.D. 09/19/2017 11:26 AM Dictated Date/Time: 09/19/2017 11:24 AM SINGLE VIEW CHEST CLINICAL HISTORY: Weakness. Change in mental status. FINDINGS: An AP, portable, upright chest radiograph is compared to chest x-ray and chest CT dated 06/03/2017. The examination is degraded by portable technique and patient rotation. The cardiomediastinal silhouette is unremarkable. There is atherosclerotic calcification of the thoracic aorta. There is elevation of the right hemidiaphragm and bibasilar atelectasis. No large pleural effusion or pneumothorax is seen. The skeletal structures are osteopenic. The bony thorax is grossly intact. IMPRESSION: No acute cardiopulmonary abnormality. Electronically signed by: Sourav Acosta M.D. 09/19/2017 11:17 AM Dictated Date/Time: 09/19/2017 11:16 AM Laboratory Results 09/19/17 11:00 Red Blood Count 4.26, Mean Corpuscular Volume 92.5, Mean Corpuscular Hemoglobin 30.0, Mean Corpuscular Hemoglobin Concent 32.5, Mean Platelet Volume 11.2, Neutrophils (%) (Auto) 74.2, Lymphocytes (%) (Auto) 15.8, Monocytes (%) (Auto) 8.3, Eosinophils (%) (Auto) 1.1, Basophils (%) (Auto) 0.3, Neutrophils # (Auto) 8.26, Lymphocytes # (Auto) 1.76, Monocytes # (Auto) 0.92, Eosinophils # (Auto) 0.12, Basophils # (Auto) 0.03 09/19/17 11:00 Test 09/19/17 11:00 09/19/17 12:19 White Blood Count 11.12 K/uL (4.8-10.8) Red Blood Count 4.26 M/uL (4.2-5.4) Hemoglobin 12.8 g/dL (12.0-16.0) Hematocrit 39.4 % (37-47) Mean Corpuscular Volume 92.5 fL (80-100) Mean Corpuscular Hemoglobin 30.0 pg (25-34) Mean Corpuscular Hemoglobin Concent 32.5 g/dl (32-36) Platelet Count 191 K/uL (130-400) Mean Platelet Volume 11.2 fL (7.4-10.4) Neutrophils (%) (Auto) 74.2 % Lymphocytes (%) (Auto) 15.8 % Monocytes (%) (Auto) 8.3 % Eosinophils (%) (Auto) 1.1 % Basophils (%) (Auto) 0.3 % Neutrophils # (Auto) 8.26 K/uL (1.4-6.5) Lymphocytes # (Auto) 1.76 K/uL (1.2-3.4) Monocytes # (Auto) 0.92 K/uL (0.11-0.59) Eosinophils # (Auto) 0.12 K/uL (0-0.5) Basophils # (Auto) 0.03 K/uL (0-0.2) RDW Standard Deviation 52.0 fL (36.4-46.3) RDW Coefficient of Variation 15.3 % (11.5-14.5) Immature Granulocyte % (Auto) 0.3 % Immature Granulocyte # (Auto) 0.03 K/uL (0.00-0.02) Prothrombin Time 14.4 SECONDS (9.0-12.0) Prothromb Time International Ratio 1.4 (0.9-1.1) Activated Partial Thromboplast Time 36.5 SECONDS (21.0-31.0) Partial Thromboplastin Ratio 1.4 Anion Gap 5.0 mmol/L (3-11) Estimated GFR () 71.7 Estimated GFR (Non- 61.8 BUN/Creatinine Ratio 25.5 (10-20) Calcium Level 8.8 mg/dl (8.5-10.1) Total Bilirubin 0.3 mg/dl (0.2-1) Aspartate Amino Transf (AST/SGOT) 28 U/L (15-37) Alanine Aminotransferase (ALT/SGPT) 30 U/L (12-78) Alkaline Phosphatase 97 U/L (45-117) Troponin I < 0.015 ng/ml (0-0.045) Total Protein 6.7 gm/dl (6.4-8.2) Albumin 3.1 gm/dl (3.4-5.0) Globulin 3.6 gm/dl (2.5-4.0) Albumin/Globulin Ratio 0.9 (0.9-2) Thyroid Stimulating Hormone (TSH) 2.230 uIu/ml (0.300-4.500) Free Thyroxine 0.94 ng/dl (0.80-1.60) Chemistry Specimen Hemolysis Urine Color YELLOW Urine Appearance CLEAR (CLEAR) Urine pH 6.5 (4.5-7.5) Urine Specific [place] 1.016 (1.000-1.030) Urine Protein NEG (NEG) Urine Glucose (UA) NEG (NEG) Urine Ketones NEG (NEG) Urine Occult Blood 1+ (NEG) Urine Nitrite NEG (NEG) Urine Bilirubin NEG (NEG) Urine Urobilinogen NEG (NEG) Urine Leukocyte Esterase TRACE (NEG) Urine WBC (Auto) 1-5 /hpf (0-5) Urine RBC (Auto) 5-10 /hpf (0-4) Urine Hyaline Casts (Auto) 1-5 /lpf (0-5) Urine Epithelial Cells (Auto) 10-20 /lpf (0-5) Urine Bacteria (Auto) NEG (NEG) Laboratory results reviewed by me. Medications Administered Medications (Trade) Dose Ordered Sig/Fang Route Start Time Stop Time Status Last Admin Dose Admin Sodium Chloride 500 ml @ 999 mls/hr Q31M STAT IV 09/19/17 10:39 09/19/17 11:09 DC 09/19/17 11:30 999 MLS/HR ECG Indication: weakness Rate (beats per minute): 77 Rhythm: normal sinus Findings: no acute ischemic change, no ectopy ED Course 1030: The patient was evaluated in room B12B. A complete history and physical exam was performed. 1039: Ordered Sodium Chloride 500 ml @ 999 mls/hr IV. 1223: I reevaluated the patient and she is resting comfortably. I discussed the test results with her son and I discussed the treatment plan. He is in agreement with the plan. We are awaiting her urinalysis. 1252: I reevaluated the patient and he is resting comfortably. I discussed the test results with the patients son and I discussed the treatment plan. He verbalized complete understanding and agreement. He is ready to take the patient home. Medical Decision The patient is a 72 year old female who presents to the ED with complaints of a fall. Differential diagnoses considered include Dehydration, UTI, intracranial bleeding, anemia, electrolyte imbalance, infection. There is a mild leukocytosis, this could be consistent with the stress of her situation or possibly infection. No concerning anemia. No significant electrolyte abnormality, kidney failure or hepatitis. The patient appears to be in a euthyroid state. Urinalysis does not show infection. Brain CT shows no acute bleed or mass effect. Chest x-ray does not show evidence for pneumonia or CHF. On exam, the patient was not febrile or toxic. The patient did receive some IV saline for hydration, she has been resting comfortably. She was happy to hear about her findings, the son was reassured as well. The patient is being discharged. She can follow with her doctors office and return here for worsening symptoms. Medication Reconcilliation Current Medication List: was personally reviewed by me Blood Pressure Screening Patient's blood pressure: Elevated blood pressure Blood pressure disposition: Elevated BP felt to be situational, Did not require urgent referral Impression Primary Impression: Head trauma Additional Impressions: Fall Dementia Scribe Attestation The scribe's documentation has been prepared under my direction and personally reviewed by me in its entirety. I confirm that the note above accurately reflects all work, treatment, procedures, and medical decision making performed by me. Departure Information Dispostion Home / Self-Care Referrals Naomi Patterson (PCP) Forms HOME CARE DOCUMENTATION FORM, IMPORTANT VISIT INFORMATION Patient Instructions My [facility] Additional Instructions care as before stay well hydrated return for worsening symptoms lab testing and imaging was all ok today Problem Qualifiers
--- NOTE | 2017-09-19 11:19 | DIAGNOSTIC IMAGING REPORT ---
SINGLE VIEW CHEST CLINICAL HISTORY: Weakness. Change in mental status. FINDINGS: An AP, portable, upright chest radiograph is compared to chest x-ray and chest CT dated 06/03/2017. The examination is degraded by portable technique and patient rotation. The cardiomediastinal silhouette is unremarkable. There is atherosclerotic calcification of the thoracic aorta. There is elevation of the right hemidiaphragm and bibasilar atelectasis. No large pleural effusion or pneumothorax is seen. The skeletal structures are osteopenic. The bony thorax is grossly intact. IMPRESSION: No acute cardiopulmonary abnormality. Electronically signed by: Sourav Acosta M.D. 09/19/2017 11:17 AM Dictated Date/Time: 09/19/2017 11:16 AM
[2017-09-19 11:22] LABS: BASO % 0.3 %; BASO ABS # 0.03 K/uL (0-0.2); COMPLETE YES; EOS % 1.1 %; HEMATOCRIT 39.4 % (37-47); IG% 0.3 %; LYMPH % 15.8 %; LYMPH ABS # 1.76 K/uL (1.2-3.4); MEAN CELL VOLUME 92.5 fL (80-100); MEAN CORPUSCULAR HGB CONC 32.5 g/dl (32-36); MEAN PLATELET VOLUME 11.2 fL (7.4-10.4); MONO % 8.3 %; NEUT % 74.2 %; PLATELET COUNT 191 K/uL (130-400); RED BLOOD COUNT 4.26 M/uL (4.2-5.4); WHITE BLOOD COUNT 11.12 K/uL (4.8-10.8)
--- NOTE | 2017-09-19 11:28 | DIAGNOSTIC IMAGING REPORT ---
HEAD WITHOUT CONTRAST (CT) CT DOSE: 614.27 mGy.cm HISTORY: Mental status change EVALUATE ALTERED MENTAL STATUS/WEAKNESS TECHNIQUE: Multiaxial CT images of the head were performed without the use of intravenous contrast. A dose lowering technique was utilized adhering to the principles of ALARA. Comparison: 11/15/2016 Findings: The paranasal sinuses and mastoid air cells are clear. Findings of generalized cerebellar as well as cerebral atrophy. Considerable chronic small vessel change of aging. Mild compensatory prominence of the ventricular system. No evidence for acute intracranial hemorrhage. No midline shift. Impression: Chronic and age-related change. No acute process. The above report was generated using voice recognition software. It may contain grammatical, syntax or spelling errors. Electronically signed by: Ramu Sandhu M.D. 09/19/2017 11:26 AM Dictated Date/Time: 09/19/2017 11:24 AM
[2017-09-19 11:33] LABS: INR 1.4 (0.9-1.1); PARTIAL THROMBOPLASTIN RATIO 1.4; PROTHROMBIN TIME (PATIENT) 14.4 SECONDS (9.0-12.0)
[2017-09-19 11:42] LABS: ALT/SGPT 30 U/L (12-78); AST/SGOT 28 U/L (15-37); BLOOD UREA NITROGEN 24 mg/dl (7-18); BUN/CREATININE RATIO 25.5 (10-20); CALCIUM 8.8 mg/dl (8.5-10.1); CARBON DIOXIDE 28 mmol/L (21-32); CHLORIDE 108 mmol/L (98-107); CREATININE 0.93 mg/dl (0.60-1.20); GLUCOSE 111 mg/dl (70-99); POTASSIUM 3.8 mmol/L (3.5-5.1); SODIUM 141 mmol/L (136-145)
[2017-09-19] MEDS ORDERED: RIVA1TAB4 PO (11:54)
[2017-09-19 11:55] LABS: ALB/GLOB RATIO 0.9 (0.9-2); ALKALINE PHOSPHATASE 97 U/L (45-117)
[2017-09-19] MEDS ORDERED: MELATONIN 1 MG PO (12:02)
[2017-09-19 12:39] LABS: URINE APPEARANCE CLEAR (CLEAR); URINE BILIRUBIN NEG (NEG); URINE COLOR YELLOW; URINE NITRITE NEG (NEG); URINE PH 6.5 (4.5-7.5); URINE SPECIFIC GRAVITY 1.016 (1.000-1.030); UROBILINOGEN NEG (NEG); ZZUR CULT IF INDIC CLEAN CATCH NO
[2017-09-19 12:40] LABS: MANUAL MICROSCOPIC REQUIRED? NO; REVIEW REQ? NO
[2017-09-19 13:15] VITALS: BP 147/86; PULSE 84; O2SAT 94
== END 2017-09-19 13:16 | disposition home or self-care (01) ==
LOC: C.EDB 09:58
DX: G44.309 Post-traumatic headache, unspecified, not intractable (principal); W01.198A Fall on same level from slipping, tripping and stumbling with subsequent striking against other object, initial encounter; Y92.002 Bathroom of unspecified non-institutional (private) residence as the place of occurrence of the external cause; Z79.01 Long term (current) use of anticoagulants; Z79.82 Long term (current) use of aspirin; Z79.899 Other long term (current) drug therapy; F03.90 Unspecified dementia, unspecified severity, without behavioral disturbance, psychotic disturbance, mood disturbance, and anxiety; I10 Essential (primary) hypertension; Z86.711 Personal history of pulmonary embolism; Z86.718 Personal history of other venous thrombosis and embolism; Z90.710 Acquired absence of both cervix and uterus; Z82.49 Family history of ischemic heart disease and other diseases of the circulatory system; Z87.891 Personal history of nicotine dependence

== ENCOUNTER 2018-01-07 19:15 | Emergency (ER) | payer OTHER, BC ==
[~2018-01-07 19:15] MED LIST changes: -ASPI81TA21 PO; -CHOL1000 PO; -CITA10TA4 PO; -CLX20 PO; -DONE1TAB26 PO; -LEVO75TA5 PO; -MELA1TAB5 PO; +MELATONIN 1 MG PO; -MEMA10TA PO; -OLAN-80 PO; -SIMV20TA2 PO; -XRL15 PO
[2018-01-07 19:21] VITALS: TEMP 37.7
[2018-01-07] MEDS ORDERED: SODIUM CHLORIDE 0.9% 1000ML 2,000 ML IV STA (19:35)
[2018-01-07] MEDS ORDERED: ACETAMINOPHEN IV 100 ML IV STA (19:35)
--- NOTE | 2018-01-07 20:17 | DIAGNOSTIC IMAGING REPORT ---
CHEST ONE VIEW PORTABLE HISTORY: Generalized abdominal pain. COMPARISON: Chest 09/19/2017. FINDINGS: There are low lung volumes. The heart is normal in size. The lungs are clear. No pleural effusions. No pneumothorax. IMPRESSION: No acute process. Electronically signed by: Hari Kruse M.D. 01/07/2018 8:16 PM Dictated Date/Time: 01/07/2018 8:15 PM
[2018-01-07 20:45] LABS: HEMATOCRIT 38.8 % (37-47); HEMOGLOBIN 13.2 g/dL (12.0-16.0); MEAN CELL VOLUME 89.6 fL (80-100); MEAN CORPUSCULAR HEMOGLOBIN 30.5 pg (25-34); PLATELET COUNT 201 K/uL (130-400); RED CELL DISTRIBUTION WIDTH CV 13.9 % (11.5-14.5); RED CELL DISTRIBUTION WIDTH SD 46.1 fL (36.4-46.3); WHITE BLOOD COUNT 15.03 K/uL (4.8-10.8)
[2018-01-07 21:03] LABS: ALBUMIN 3.5 gm/dl (3.4-5.0); ALT/SGPT 32 U/L (12-78); BLOOD UREA NITROGEN 16 mg/dl (7-18); CALCIUM 9.1 mg/dl (8.5-10.1); CARBON DIOXIDE 28 mmol/L (21-32); CREATININE 0.88 mg/dl (0.60-1.20); GLUCOSE 103 mg/dl (70-99); LIPASE 133 U/L (73-393); POTASSIUM 3.7 mmol/L (3.5-5.1); SODIUM 139 mmol/L (136-145)
[2018-01-07 21:07] LABS: ALKALINE PHOSPHATASE 117 U/L (45-117); AST/SGOT 30 U/L (15-37); PHOSPHORUS 2.3 mg/dl (2.5-4.9); TOTAL PROTEIN 7.1 gm/dl (6.4-8.2)
[2018-01-07 21:37] LABS: BASO % 0.1 %; BASO ABS # 0.02 K/uL (0-0.2); EOS % 0.1 %; EOS ABS # 0.02 K/uL (0-0.5); IG# 0.06 K/uL (0.00-0.02); LYMPH % 6.5 %; LYMPH ABS # 0.98 K/uL (1.2-3.4); MONO % 9.4 %; MONO ABS # 1.42 K/uL (0.11-0.59); NEUT % 83.5 %; NEUT ABS # 12.53 K/uL (1.4-6.5)
--- NOTE | 2018-01-07 22:06 | DIAGNOSTIC IMAGING REPORT ---
HEAD CT NONCONTRAST CT DOSE: 537.48 mGy.cm HISTORY: Altered mental status. TECHNIQUE: Multiaxial CT images of the head were performed without the use of intravenous contrast. Automated exposure control was utilized for this study. A dose lowering technique was utilized adhering to the principles of ALARA. Comparison: Head CT 09/19/2017. Findings: The paranasal sinuses and mastoid air cells are clear. The calvarium and skull base are intact. There is no mass, hematoma, midline shift, acute infarct. White matter hypodensity is nonspecific but suggestive of microvascular ischemic change. The ventricles and sulci demonstrate mild age-related involutional changes. Impression: No acute intracranial abnormality. Atrophy and microvascular ischemic changes. No significant change. Electronically signed by: Hari Kruse M.D. 01/07/2018 10:05 PM Dictated Date/Time: 01/07/2018 10:01 PM
[2018-01-07] MEDS ORDERED: SODIUM CHLORIDE 0.9% 1000ML 1,000 ML IV STA (23:04)
--- NOTE | 2018-01-07 23:24 | EMERGENCY ROOM VISIT NOTE ---
History Report prepared by Sj: Gayle Martinez Under the Supervision of: Dr. Ector Brady M.D. First contact with patient: 19:27 Chief Complaint: OTHER COMPLAINT Stated Complaint: LOSS BLADDER CONTROL, DELAYED RESPONSE, POOR [place] History of Present Illness The patient is a 72 year old female who presents to the Emergency Room with complaints of persistent altered mental status starting earlier today. The patient has a history of dementia and lives with her son. She was at baseline yesterday. Today the patient has been incontinent of urine 2 times. She is taking longer to respond to questions. She has been more fatigued and sleeping more over the past 1-2 weeks. Yesterday, she lost her balance going up the stairs which was unusual for her. She was able to catch herself before falling. She has been eating and drinking normally. 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 Yesterday he noticed some bleeding from her gums with brushing her teeth. She has had some trouble swallowing her pills recently. She has not had any known fevers. She denies any abdominal pain. She has not had any changes to her medication in 2 months. She received a flu shot this season. Source of History: patient, family Onset: earlier today Position: other (mental status) Quality: other (altered) Timing: other (persistent) Associated Symptoms: + urinary symptoms, + fatigue, No fevers, No abdominal pain Note: Pt is slow to respond, off balance. Review of Systems See HPI for pertinent positives and negatives. A total of ten systems were reviewed and were otherwise negative. Past Medical & Surgical Medical Problems: (1) Dementia (2) DVT (deep venous thrombosis) (3) Hypertension (4) Pulmonary embolism (5) Thyroid disease Surgical Problems: (1) Hx of hysterectomy Family History Heart disease Hypertension Social History Smoking Status: Never Smoker Alcohol Use: none Drug Use: none Marital Status: single Housing Status: lives alone Occupation Status: retired Current/Historical Medications Scheduled Aspirin Enteric Coated (Ecotrin Or Generic), 81 MG PO QAM Cholecalciferol (Vitamin D3), 1,000 UNITS PO QAM Donepezil Hydrochloride (Donepezil Hcl), 10 MG PO QAM Levothyroxine Sodium (Levothyroxine Sodium), 75 MCG PO DAILY Melatonin (Melatonin), 1 MG PO HS Memantine Hcl (Namenda), 10 MG PO BID Olanzapine (Zyprexa), 1.25 MG PO QAM Olanzapine (Zyprexa), 2.5 MG PO HS Rivaroxaban (Xarelto), 20 MG PO QAM Simvastatin (Zocor), 20 MG PO QPM Venlafaxine Hcl (Effexor Xr), 37.5 MG PO QAM Venlafaxine Hcl (Effexor Xr), 75 MG PO QAM Scheduled PRN Buspirone Hcl (Buspirone Hcl), 5 MG PO BID PRN for Anxiety/Agitation Lorazepam (Ativan), 0.5 MG PO BID PRN for Anxiety/Agitation Allergies Coded Allergies: No Known Allergies (Verified , 01/07/18) Physical Exam Vital Signs Date Time Temp Pulse Resp B/P (MAP) Pulse Ox O2 Delivery O2 Flow Rate FiO2 01/08/18 01:13 85 16 130/69 93 01/08/18 00:07 98 01/07/18 23:21 100 15 143/73 95 Room Air 01/07/18 21:21 106 15 144/78 96 Room Air 01/07/18 20:27 111 01/07/18 19:21 37.7 117 18 170/89 95 Room Air Physical Exam GENERAL: Awake, fatigued-appearing, withdrawn, in no distress HENT: Normocephalic, atraumatic. Dry cracked mucous membranes, otherwise oropharynx unremarkable. EYES: Normal conjunctiva. Sclera non-icteric. NECK: Supple. No nuchal rigidity. FROM. No JVD. RESPIRATORY: Clear to auscultation. CARDIAC: ST. Extremities warm and well perfused. Pulses equal. ABDOMEN: Soft, non-distended. No tenderness to palpation. No rebound or guarding. No masses. RECTAL: Deferred. MUSCULOSKELETAL: Chest examination reveals no tenderness. The back is symmetrical on inspection without obvious abnormality. There is no CVA tenderness to palpation. No joint edema. LOWER EXTREMITIES: Calves are equal size bilaterally and non-tender. No edema. No discoloration. NEURO: Normal sensorium. No sensory or motor deficits noted. 5/5 strength x 4 Ext. SKIN: No rash or jaundice noted. Medical Decision & Procedures ER Provider Diagnostic Interpretation: Radiology results as stated below per my review and radiologist interpretation: CHEST ONE VIEW PORTABLE HISTORY: Generalized abdominal pain. COMPARISON: Chest 09/19/2017. FINDINGS: There are low lung volumes. The heart is normal in size. The lungs are clear. No pleural effusions. No pneumothorax. IMPRESSION: No acute process. Electronically signed by: Hari Kruse M.D. 01/07/2018 8:16 PM Dictated Date/Time: 01/07/2018 8:[address]AST CT DOSE: 537.48 mGy.cm HISTORY: Altered mental status. TECHNIQUE: Multiaxial CT images of the head were performed without the use of intravenous contrast. Automated exposure control was utilized for this study. A dose lowering technique was utilized adhering to the principles of ALARA. Comparison: Head CT 09/19/2017. Findings: The paranasal sinuses and mastoid air cells are clear. The calvarium and skull base are intact. There is no mass, hematoma, midline shift, acute infarct. White matter hypodensity is nonspecific but suggestive of microvascular ischemic change. The ventricles and sulci demonstrate mild age-related involutional changes. Impression: No acute intracranial abnormality. Atrophy and microvascular ischemic changes. No significant change. Electronically signed by: Hari Kruse M.D. 01/07/2018 10:05 PM Dictated Date/Time: 01/07/2018 10:01 PM Laboratory Results 01/07/18 20:25 Red Blood Count 4.33, Mean Corpuscular Volume 89.6, Mean Corpuscular Hemoglobin 30.5, Mean Corpuscular Hemoglobin Concent 34.0, Mean Platelet Volume 11.0, Neutrophils (%) (Auto) 83.5, Lymphocytes (%) (Auto) 6.5, Monocytes (%) (Auto) 9.4, Eosinophils (%) (Auto) 0.1, Basophils (%) (Auto) 0.1, Neutrophils # (Auto) 12.53, Lymphocytes # (Auto) 0.98, Monocytes # (Auto) 1.42, Eosinophils # (Auto) 0.02, Basophils # (Auto) 0.02 01/07/18 20:25 Test 01/07/18 20:25 01/07/18 21:31 01/07/18 22:35 White Blood Count 15.03 K/uL (4.8-10.8) Red Blood Count 4.33 M/uL (4.2-5.4) Hemoglobin 13.2 g/dL (12.0-16.0) Hematocrit 38.8 % (37-47) Mean Corpuscular Volume 89.6 fL (80-100) Mean Corpuscular Hemoglobin 30.5 pg (25-34) Mean Corpuscular Hemoglobin Concent 34.0 g/dl (32-36) Platelet Count 201 K/uL (130-400) Mean Platelet Volume 11.0 fL (7.4-10.4) Neutrophils (%) (Auto) 83.5 % Lymphocytes (%) (Auto) 6.5 % Monocytes (%) (Auto) 9.4 % Eosinophils (%) (Auto) 0.1 % Basophils (%) (Auto) 0.1 % Neutrophils # (Auto) 12.53 K/uL (1.4-6.5) Lymphocytes # (Auto) 0.98 K/uL (1.2-3.4) Monocytes # (Auto) 1.42 K/uL (0.11-0.59) Eosinophils # (Auto) 0.02 K/uL (0-0.5) Basophils # (Auto) 0.02 K/uL (0-0.2) RDW Standard Deviation 46.1 fL (36.4-46.3) RDW Coefficient of Variation 13.9 % (11.5-14.5) Immature Granulocyte % (Auto) 0.4 % Immature Granulocyte # (Auto) 0.06 K/uL (0.00-0.02) Red Blood Cell Morphology Unremarkable Anion Gap 7.0 mmol/L (3-11) Estimated GFR () 76.6 Estimated GFR (Non- 66.1 BUN/Creatinine Ratio 18.0 (10-20) Lactic Acid Level 1.9 mmol/L (0.4-2.0) Calcium Level 9.1 mg/dl (8.5-10.1) Phosphorus Level 2.3 mg/dl (2.5-4.9) Magnesium Level 2.2 mg/dl (1.8-2.4) Total Bilirubin 0.3 mg/dl (0.2-1) Direct Bilirubin < 0.1 mg/dl (0-0.2) Aspartate Amino Transf (AST/SGOT) 30 U/L (15-37) Alanine Aminotransferase (ALT/SGPT) 32 U/L (12-78) Alkaline Phosphatase 117 U/L (45-117) Total Protein 7.1 gm/dl (6.4-8.2) Albumin 3.5 gm/dl (3.4-5.0) Lipase 133 U/L (73-393) Urine Color YELLOW Urine Appearance CLEAR (CLEAR) Urine pH 7.5 (4.5-7.5) Urine Specific [place] 1.008 (1.000-1.030) Urine Protein NEG (NEG) Urine Glucose (UA) NEG (NEG) Urine Ketones NEG (NEG) Urine Occult Blood 1+ (NEG) Urine Nitrite NEG (NEG) Urine Bilirubin NEG (NEG) Urine Urobilinogen NEG (NEG) Urine Leukocyte Esterase NEG (NEG) Urine WBC (Auto) 0 /hpf (0-5) Urine RBC (Auto) 5-10 /hpf (0-4) Urine Hyaline Casts (Auto) 1-5 /lpf (0-5) Urine Epithelial Cells (Auto) 0-5 /lpf (0-5) Urine Bacteria (Auto) NEG (NEG) Influenza Type A (RT-PCR) Neg for Influ A (NEG) Influenza Type B (RT-PCR) Neg for Influ B (NEG) Laboratory results reviewed by me Medications Administered Medications (Trade) Dose Ordered Sig/Fang Route Start Time Stop Time Status Last Admin Dose Admin Sodium Chloride 2,000 ml @ 999 mls/hr Q2H1M STAT IV 01/07/18 19:35 01/07/18 21:35 DC 01/07/18 20:47 999 MLS/HR Acetaminophen 100 ml @ 400 mls/hr NOW STAT IV 01/07/18 19:35 01/07/18 19:49 DC 01/07/18 20:47 400 MLS/HR Sodium Chloride 1,000 ml @ 999 mls/hr Q1H1M STAT IV 01/07/18 23:04 01/08/18 00:04 DC 01/07/18 23:04 999 MLS/HR Simvastatin (Zocor Tab) 20 mg NOW ONCE PO 01/08/18 00:00 01/08/18 00:01 DC 01/08/18 00:18 20 MG Memantine (Namenda Tab) 10 mg NOW STAT PO 01/07/18 23:51 01/07/18 23:54 DC 01/08/18 00:18 10 MG Potassium/ Phosphorus/Sodium (Phospha 250 Neutral 155-852-130 Mg) 2 tab NOW STAT PO 01/08/18 00:49 01/08/18 00:51 DC 01/08/18 01:05 2 TAB ECG Per My Interpretation Indication: weakness Rate (beats per minute): 106 Rhythm: sinus tachycardia Findings: no acute ischemic change, other (normal axis) ED Course 1933: The patient was evaluated in room B10. A complete history and physical exam was performed. 2230: I reevaluated the patient. Medical Decision I reviewed the patient's past medical history, medications, and the nursing notes as described above. Etiologies such as metabolic, infection, hypo/hyperglycemia, electrolyte abnormalities, cardiac sources, intracerebral event, toxicologic, neurologic, as well as others were entertained. The patient is a 72-year-old woman with a past medical history of dementia who presents emergency department with worsening generalized weakness, increased sleep, decreased activity, and episodes of urinary incontinence where she did not make it to the bathroom over the past couple of days per hpi. On arrival the patient is fatigued appearing but no acute distress, temp of 37.7, heart rate 110-120s vital signs otherwise stable. On exam the patient appears clinically dry with dry cracked mucous membranes. 5/5 Strength x 4 ext. EKG demonstrates sinus tachycardia but otherwise no evidence of acute ischemia and similar to prior. Chest x-ray negative for pneumonia. WBC elevated to 15 however nonspecific. Chemistry unremarkable and lactate within normal limits. UA negative for infection. Influenza PCR negative. Patient demonstrated significant improvement with IV fluid hydration. Discussed the reassuring findings with the patient's son at the bedside and we agreed to reassess the patient after additional IV fluid hydration given her marked improvement already. Subsequently continued to improve both in terms of her strength able to stand with out assistance and interact with conversation which is much different when compared to when she arrived. While the patient did not have an explicit fever in the emergency department it is possible that she has an early viral illness. However, given no clear infectious source, no indication for antibiotics at this time. Findings and plan for follow-up reviewed with son. Son agreeable and d/c'd per discharge instructions. Medication Reconcilliation Current Medication List: was personally reviewed by me Blood Pressure Screening Patient's blood pressure: Elevated blood pressure Impression Primary Impression: Dehydration Scribe Attestation The scribe's documentation has been prepared under my direction and personally reviewed by me in its entirety. I confirm that the note above accurately reflects all work, treatment, procedures, and medical decision making performed by me. Departure Information Dispostion Home / Self-Care Referrals No Doctor, Assigned (PCP) Patient Instructions ED Dehydration, My [facility] Additional Instructions Please follow up with your primary care physician in the next 1-2 days for re- evaluation. Your symptoms are likely due to dehydration, which may have been provoked by an early viral illness. Otherwise, your exam, EKG, lab results, chest xray, and CT scan of your brain did not show signs of an emergent condition at this time. Acetaminophen for pain and fevers as needed. Drink plenty of fluids to ensure hydration. Return to the emergency department for worsening symptoms as described in the accompanying instructions.
[2018-01-07 23:27] LABS: INFLUENZA A PCR Neg for Influ A (NEG); INFLUENZA B PCR Neg for Influ B (NEG)
[2018-01-07] MEDS ORDERED: MEMANTINE 10 MG TAB PO STA (23:51)
[2018-01-08] MEDS ORDERED: SIMVASTATIN 10 MG TAB PO ONE
[2018-01-08] MEDS ORDERED: POT PHOSPHATE MONOBASIC W/ SOD TAB PO STA (00:49)
[2018-01-08 01:13] VITALS: BP 130/69; PULSE 85; O2SAT 93
[2018-01-08] MEDS ORDERED: OLAN-80 PO (02:30)
[2018-01-08] MEDS ORDERED: RIVA1TAB4 PO (11:54)
[2018-01-08] MEDS ORDERED: LEVO75TA5 PO (12:42)
[2018-01-08] MEDS ORDERED: CHOL1000 PO (12:42)
[2018-01-08] MEDS ORDERED: DONE1TAB26 PO (12:42)
[2018-01-08] MEDS ORDERED: MEMA10TA PO (15:06)
[2018-01-08] MEDS ORDERED: ASPI81TA21 PO (15:06)
[2018-01-08] MEDS ORDERED: SIMV20TA2 PO (15:06)
[2018-01-08] MEDS ORDERED: OLAN1TAB7 PO (23:08)
[2018-01-08] MEDS ORDERED: VENL75CA PO (23:08)
[2018-01-08] MEDS ORDERED: BUSP5TAB59 PO (23:08)
[2018-01-08] MEDS ORDERED: MELA1TAB4 PO (23:08)
[2018-01-08] MEDS ORDERED: VENL1CAP92 PO (23:08)
[2018-01-08] MEDS ORDERED: LORA-741 PO (23:08)
== END 2018-01-08 01:14 | disposition home or self-care (01) ==
LOC: C.EDB 19:16
DX: E86.0 Dehydration (principal); F03.90 Unspecified dementia, unspecified severity, without behavioral disturbance, psychotic disturbance, mood disturbance, and anxiety; I10 Essential (primary) hypertension; I26.99 Other pulmonary embolism without acute cor pulmonale; E07.9 Disorder of thyroid, unspecified; Z82.49 Family history of ischemic heart disease and other diseases of the circulatory system

== ENCOUNTER 2018-01-08 14:34 | Inpatient (IN) | payer OTHER, BC ==
[~2018-01-08] VITALS: Ht 152.4 cm; Wt 56.1 kg
[~2018-01-08 14:34] MED LIST changes: -LORA0.5T12 PO; -MELATONIN 1 MG PO; -MIRT15TA3 PO; +OLAN-80 PO; -ZLF50 PO
[2018-01-08] MEDS ORDERED: PIPERACILLIN/TAZOBACTAM 4.5 GM/100ML D5W IV STA (14:52)
[2018-01-08] MEDS ORDERED: VANCOMYCIN 1GM ED/ASU OMNICELL IV STA (14:52)
[2018-01-08] MEDS ORDERED: SODIUM CHLORIDE 0.9% 1000ML 500 ML IV ONE ×2 (14:52)
--- NOTE | 2018-01-08 14:57 | EMERGENCY ROOM VISIT NOTE ---
History Report prepared by Sj: Chauncey Mancera Under the Supervision of: Dr. Kb Barber M.D. First contact with patient: 14:35 Stated Complaint: LETHARGIC/FEVER History of Present Illness The patient is a 72 year old female with a past medical history of dementia, hypertension, thyroid disease, and a DVT who presents to the ED with a cc of worsening generalized weakness beginning yesterday. Positive for bladder incontinence, watery eyes, rhinorrhea, a headache, abdominal pain, bumps on her forehead, and fever. Negative for diarrhea. Per son, the patient was brought into the emergency department last night for similar symptoms. He notes that the patient was discharged and was tested negative for a UTI and influenza. He reports that the patient was fine this morning, and then developed worsening symptoms throughout the day. He states that the patient has not been able to control her bladder, has had an increasing fever, and cannot stand on her own due to her weakness. He notes that the patient has also had watery eyes, rhinorrhea, bumps on her forehead, a headache three days ago, and abdominal pain yesterday. He reports that the patient has not had any diarrhea or recent trauma. He states that the patient's Effexor dosage was increased recently. He notes that the patient fell a few months ago and might have bumped her head on the wall. He reports that the patient was admitted to the hospital last June. HPI limited secondary to dementia. Source of History: family History Limited By: dementia Onset: yesterday Position: other (generalized) Quality: other (weakness) Timing: worsening Associated Symptoms: + fevers, + headache, + abdominal pain, No diarrhea Note: Per son, the patient has been experiencing bladder incontinence, watery eyes, bumps on her forehead, and rhinorrhea. Review of Systems HPI limited secondary to dementia. A total of ten systems were reviewed and were otherwise negative per the son. Past Medical & Surgical Medical Problems: (1) Dementia (2) DVT (deep venous thrombosis) (3) Hypertension (4) Pulmonary embolism (5) Thyroid disease Surgical Problems: (1) H/O: hysterectomy (2) Hx of hysterectomy Family History Cancer Heart disease Hypertension Social History Smoking Status: Never Smoker Alcohol Use: none Drug Use: none Marital Status: single Housing Status: lives alone Occupation Status: retired Current/Historical Medications Scheduled Aspirin Enteric Coated (Ecotrin Or Generic), 81 MG PO QAM Cholecalciferol (Vitamin D3), 1,000 UNITS PO QAM Donepezil Hydrochloride (Donepezil Hcl), 10 MG PO QAM Levothyroxine Sodium (Levothyroxine Sodium), 75 MCG PO DAILY Melatonin (Melatonin), 1 MG PO HS Memantine Hcl (Namenda), 10 MG PO BID Olanzapine (Zyprexa), 1.25 MG PO QAM Olanzapine (Zyprexa), 2.5 MG PO HS Rivaroxaban (Xarelto), 20 MG PO QAM Simvastatin (Zocor), 20 MG PO QPM Venlafaxine Hcl (Effexor Xr), 37.5 MG PO QAM Venlafaxine Hcl (Effexor Xr), 75 MG PO QAM Scheduled PRN Buspirone Hcl (Buspirone Hcl), 5 MG PO BID PRN for Anxiety/Agitation Lorazepam (Ativan), 0.5 MG PO BID PRN for Anxiety/Agitation Allergies Coded Allergies: No Known Allergies (Verified , 01/07/18) Physical Exam Vital Signs Date Time Temp Pulse Resp B/P (MAP) Pulse Ox O2 Delivery O2 Flow Rate FiO2 01/08/18 21:01 105 20 130/64 95 Room Air 01/08/18 21:00 Room Air 01/08/18 20:31 97 19 126/98 95 Room Air 01/08/18 20:01 104 18 118/77 95 Room Air 01/08/18 19:37 94 19 195/111 96 Room Air 01/08/18 19:35 92 19 158/118 95 Room Air 01/08/18 19:21 98 01/08/18 19:01 97 19 176/120 97 Room Air 01/08/18 18:31 90 18 107/60 95 Room Air 01/08/18 17:30 36.7 99 18 117/64 93 Room Air 01/08/18 16:12 37.2 105 20 132/75 95 Room Air 01/08/18 15:21 119 01/08/18 15:01 93 Room Air 01/08/18 14:50 39.4 132 28 146/79 93 Room Air Physical Exam GENERAL: Awake, alert, ill-appearing, NAD, lethargy noted, wearing glasses. HENT: Normocephalic, atraumatic. EYES: Normal conjunctiva. Sclera non-icteric. NECK: Supple. No nuchal rigidity. FROM. RESPIRATORY: CTAB, no rhonchi, wheezing, crackles CARDIAC: No MRG, tachycardic rate and regular rhythm. ABDOMEN: Soft, NTND, BS+ MSK: No chest wall TTP, no LE edema NEURO: CN 2-12 intact, moves all 4s on command, generalized weakness with symmetric strength in all four extremities. A&O x2, GCS 14. SKIN: No rash or jaundice noted. Medical Decision & Procedures ER Provider Diagnostic Interpretation: Radiology results as stated below per my review and radiologist interpretation: CHEST ONE VIEW PORTABLE FINDINGS: Atherosclerosis of the aortic arch. Cardiac silhouette normal in size. Lungs and pleural spaces clear. Osseous structures normal. Upper abdomen normal. IMPRESSION: 1. No acute cardiopulmonary disease. Electronically signed by: Rodríguez Jose M.D. 01/08/2018 3:[address] SCAN OF THE CHEST, ABDOMEN, AND PELVIS WITH IV CONTRAST FINDINGS: CHEST: Thyroid: Markedly atrophic. Thoracic aorta: There is mild atherosclerotic calcification of the thoracic aorta, which is normal in caliber and demonstrates bovine variant arch anatomy. No dissection is seen. High-grade stenosis is suggested in the proximal left subclavian artery. Pulmonary vasculature: The pulmonary trunk is normal in caliber. There are no filling defects identified in the central pulmonary vessels to indicate pulmonary embolus. Note that this examination was not protocoled for evaluation of the pulmonary arteries. Heart: The heart is normal in size and configuration, and without pericardial effusion. There are coronary artery calcifications. Lungs and pleural spaces: Evaluation of lung parenchyma is degraded by motion artifact. No airspace consolidation is seen typical for pneumonia and there is no pleural effusion. Dependent atelectasis is observed. The trachea and central airways are patent. Mediastinum: There is no mediastinal lymphadenopathy. Salima: Clear. Axillae: There is no axillary lymphadenopathy. Bony thorax: The skeletal structures are osteopenic. Degenerative change and hyperkyphosis are noted in the thoracic spine. No lytic or blastic lesions are identified. ABDOMEN AND PELVIS: Liver: Evaluation of the liver is degraded by streak artifact. The contrast-enhanced liver is normal in size, contour, and attenuation. There is no intrahepatic or ductal dilatation. The hepatic veins and portal veins are patent. At least 3 low-attenuation lesions are identified in the right hepatic lobe and measure up to 1.7 cm. Foci of peripheral discontinuous nodular enhancement are suggested in these may represent hemangiomas. Gallbladder: Numerous small calcified gallstones are identified. There is no CT evidence of acute cholecystitis. Spleen: Normal in size and attenuation. Pancreas: Moderately atrophic and grossly unremarkable. Adrenal glands: Unremarkable. Kidneys: The contrast enhanced kidneys demonstrate cortical atrophy and are without hydronephrosis. Small external pelvises are noted bilaterally. The kidneys enhance symmetrically. Abdominal vasculature: The abdominal aorta is normal in course and caliber noting moderate atherosclerotic calcification. Bowel: There is advanced colonic diverticulosis without convincing CT evidence of acute diverticulitis. No bowel obstruction is seen. A small duodenal diverticulum is identified. The appendix is not identified. Peritoneum: There is no intraperitoneal free air or abdominal ascites. Lymphadenopathy: None. Pelvic viscera: The bladder is partially decompressed around a [place] catheter. Foci of intraluminal gas are nonspecific and likely related to instrumentation. The uterus is surgically absent. No adnexal lesion is seen. Skeletal structures: The skeletal structures are osteopenic. Mild lumbosacral spondylosis is observed. A posterior disc herniation is suggested at L5-S1. No lytic or blastic lesions are seen. There are healed bilateral pubic ring fractures. IMPRESSION: 1. Streak and motion compromised examination. 2. Dependent atelectasis is noted. The lungs are otherwise clear. No airspace consolidation is seen typical for pneumonia and there is no pleural effusion. 3. There are no acute infectious or inflammatory findings identified in the abdomen or pelvis. 4. Advanced colonic diverticulosis without convincing CT evidence of acute diverticulitis. 5. Cholelithiasis. 6. The bladder is partially decompressed around a [place] catheter. Foci of intraluminal gas are likely related to instrumentation. Correlate with urinalysis will be required. 7. There are least 3 low-attenuation hepatic lesions measuring up to 1.7 cm. Although incompletely characterized, the appearance suggests hemangiomas. Consider nonemergent follow-up liver ultrasound for further assessment. 8. Additional findings as above. Electronically signed by: Sourav Acosta M.D. 01/08/2018 5:16 PM Laboratory Results 01/08/18 15:23 Red Blood Count 4.10, Mean Corpuscular Volume 89.3, Mean Corpuscular Hemoglobin 30.2, Mean Corpuscular Hemoglobin Concent 33.9, Mean Platelet Volume 10.9, Neutrophils (%) (Auto) 86.0, Lymphocytes (%) (Auto) 3.1, Monocytes (%) (Auto) 10.4, Eosinophils (%) (Auto) 0.0, Basophils (%) (Auto) 0.1, Neutrophils # (Auto ) 13.72, Lymphocytes # (Auto) 0.49, Monocytes # (Auto) 1.65, Eosinophils # (Auto ) 0.00, Basophils # (Auto) 0.01 01/08/18 15:23 Test 01/08/18 15:23 01/08/18 15:30 01/08/18 15:35 01/08/18 15:38 White Blood Count 15.93 K/uL (4.8-10.8) Red Blood Count 4.10 M/uL (4.2-5.4) Hemoglobin 12.4 g/dL (12.0-16.0) Hematocrit 36.6 % (37-47) Mean Corpuscular Volume 89.3 fL (80-100) Mean Corpuscular Hemoglobin 30.2 pg (25-34) Mean Corpuscular Hemoglobin Concent 33.9 g/dl (32-36) Platelet Count 165 K/uL (130-400) Mean Platelet Volume 10.9 fL (7.4-10.4) Neutrophils (%) (Auto) 86.0 % Lymphocytes (%) (Auto) 3.1 % Monocytes (%) (Auto) 10.4 % Eosinophils (%) (Auto) 0.0 % Basophils (%) (Auto) 0.1 % Neutrophils # (Auto) 13.72 K/uL (1.4-6.5) Lymphocytes # (Auto) 0.49 K/uL (1.2-3.4) Monocytes # (Auto) 1.65 K/uL (0.11-0.59) Eosinophils # (Auto) 0.00 K/uL (0-0.5) Basophils # (Auto) 0.01 K/uL (0-0.2) RDW Standard Deviation 46.6 fL (36.4-46.3) RDW Coefficient of Variation 14.1 % (11.5-14.5) Immature Granulocyte % (Auto) 0.4 % Immature Granulocyte # (Auto) 0.06 K/uL (0.00-0.02) Prothrombin Time 13.4 SECONDS (9.0-12.0) Prothromb Time International Ratio 1.3 (0.9-1.1) Activated Partial Thromboplast Time 30.8 SECONDS (21.0-31.0) Partial Thromboplastin Ratio 1.2 Anion Gap 8.0 mmol/L (3-11) Est Creatinine Clear Calc Drug Dose 56.7 ml/min Estimated GFR () 97.7 Estimated GFR (Non- 84.3 BUN/Creatinine Ratio 12.2 (10-20) Calcium Level 8.4 mg/dl (8.5-10.1) Phosphorus Level 1.7 mg/dl (2.5-4.9) Magnesium Level 1.8 mg/dl (1.8-2.4) Total Bilirubin 1.0 mg/dl (0.2-1) Aspartate Amino Transf (AST/SGOT) 36 U/L (15-37) Alanine Aminotransferase (ALT/SGPT) 34 U/L (12-78) Alkaline Phosphatase 114 U/L (45-117) Total Creatine Kinase 71 U/L (26-192) Total Protein 6.6 gm/dl (6.4-8.2) Albumin 3.0 gm/dl (3.4-5.0) Globulin 3.6 gm/dl (2.5-4.0) Albumin/Globulin Ratio 0.8 (0.9-2) Lipase 95 U/L (73-393) Urine Color YELLOW Urine Appearance CLEAR (CLEAR) Urine pH 7.5 (4.5-7.5) Urine Specific [place] 1.006 (1.000-1.030) Urine Protein NEG (NEG) Urine Glucose (UA) NEG (NEG) Urine Ketones NEG (NEG) Urine Occult Blood 2+ (NEG) Urine Nitrite NEG (NEG) Urine Bilirubin NEG (NEG) Urine Urobilinogen NEG (NEG) Urine Leukocyte Esterase NEG (NEG) Urine WBC (Auto) 1-5 /hpf (0-5) Urine RBC (Auto) 0-4 /hpf (0-4) Urine Hyaline Casts (Auto) 1-5 /lpf (0-5) Urine Epithelial Cells (Auto) 5-10 /lpf (0-5) Urine Bacteria (Auto) NEG (NEG) Venous Blood pH 7.43 (7.36-7.41) Venous Blood Partial Pressure CO2 39 mmHg (38.0-50.0) Venous Blood Partial Pressure O2 25 mmHg Venous Blood HCO3 25 mmol/L Venous Blood Oxygen Saturation < 60.0 % Venous Blood Base Excess 1.1 mEq/L Bedside Lactic Acid Venous 1.46 mmol/L (0.90-1.70) Laboratory results reviewed by me Medications Administered Medications (Trade) Dose Ordered Sig/Fang Route Start Time Stop Time Status Last Admin Dose Admin Sodium Chloride 500 ml @ 999 mls/hr Q31M ONCE IV 01/08/18 14:52 01/08/18 15:22 DC 01/08/18 15:26 999 MLS/HR Sodium Chloride 500 ml @ 999 mls/hr Q31M ONCE IV 01/08/18 14:52 01/08/18 15:22 DC 01/08/18 15:26 999 MLS/HR Piperacillin Sod/ Tazobactam Sod (Zosyn Iv) 4.5 gm ONE STAT IV 01/08/18 14:52 01/08/18 14:56 DC 01/08/18 15:31 4.5 GM Vancomycin HCl (Vancomycin 1gm Ed/Asu Omnicell) 1 gm ONE STAT IV 01/08/18 14:52 01/08/18 14:56 DC 01/08/18 16:08 1 GM Acetaminophen (Tylenol Soln) 650 mg ONE STAT PO 01/08/18 15:08 01/08/18 15:09 DC 01/08/18 15:32 650 MG Parenteral Electrolyte Solution 1,000 ml @ 999 mls/hr Q1H1M STAT IV 01/08/18 15:20 01/08/18 16:20 DC 01/08/18 15:29 999 MLS/HR Calcium Gluconate (Calcium Gluconate 10%) 2,000 mg NOW STAT IV 01/08/18 16:27 01/08/18 16:29 DC 01/08/18 16:52 2,000 MG Potassium Phosphate 18 mmol/ Sodium Chloride 506 ml @ 88 mls/hr NOW STAT IV 01/08/18 16:34 01/08/18 22:18 01/08/18 16:52 88 MLS/HR Potassium Chloride (Klor-Con Tab) 40 meq NOW STAT PO 01/08/18 18:06 01/08/18 18:07 DC 01/08/18 18:32 40 MEQ Potassium Chloride (Kcl 10 Meq / Wtr) 10 meq NOW STAT IV 01/08/18 18:06 01/08/18 18:07 DC 01/08/18 18:33 10 MEQ Sodium Chloride 500 ml @ 999 mls/hr Q31M STAT IV 01/08/18 18:13 01/08/18 18:43 DC 01/08/18 18:13 999 MLS/HR Oseltamivir Phosphate (Tamiflu Cap) 75 mg NOW STAT PO 01/08/18 18:18 01/08/18 18:19 DC 01/08/18 18:33 75 MG ECG Per My Interpretation Indication: weakness Rate (beats per minute): 121 Rhythm: sinus tachycardia Findings: other (Normal intervals, normal axis, mild depression in leads V3-V5) ED Course 1445: The patient was evaluated in room C11. A complete history and physical exam was performed. 1455: Prior records from last night showed that the patient had a white count of 15, normal BNP, negative UA, negative flu, negative CT brain, and negative chest X-RAY. 1644: I rechecked the patient. She looks better. 2101: I reevaluated and updated the patient. 2130: Upon reexamination, the patient was stable. I discussed the test results and treatment plan with her. Discussed the patient's case with Dr. Bustamante - Hospitalist, [place]. The patient will be evaluated for further management. Medical Decision Nursing notes reviewed. Ancillary studies and prior records reviewed. The patient is a 72 year old female with a past medical history of dementia, hypertension, thyroid disease, and a DVT on xarelto who presents to the ED with a cc of worsening generalized weakness beginning yesterday. Positive for bladder incontinence, watery eyes, rhinorrhea, a headache, abdominal pain, and fever. Negative for diarrhea. Differential diagnosis: Etiologies such as viral syndrome, otitis, pharyngitis, pneumonia, influenza, meningitis, urinary tract infection, sepsis, bacteremia, as well as others were entertained. Patient was seen and evaluated at the bedside. Of note the patient was recently seen here yesterday and diagnosed with dehydration. The patient did have a fairly benign workup. Patient did have white blood cell count of 15,000 but no identified source. The patient had a negative flu, urinalysis, and chest x-ray. Patient exam is ill-appearing and tachycardic. The patient is febrile. The patient was able to follow commands and was able to identify family members at the bedside. Patient does not have much abdominal pain. Patient would qualify for sepsis given the fever, tachycardia, and increased respiratory rate. She likely still does have an elevated white blood cell count. Given that she had a negative CT of the brain and no recent falls are negative flu these were not repeated. The patient did have blood work completed , broad-spectrum antibiotics, cultures, IV fluids, Tylenol, chest x-ray, UA, and CT of the abdomen pelvis. Patient's blood work showed that she still had an elevated white blood cell count with a left shift at 15,000. Patient had a negative UA and chest x-ray. Patient did have mildly low calcium and fossa. These were repleted. Upon reassessment the patient was looking and feeling mildly improved. The patient was more talkative. Patient CTs were fairly unremarkable. No evidence of obvious infection or inflammatory change. Patient does look and feel better however she has had some difficulty with p.o. tolerance and lack of thirst. Patient's tachycardia has improved. The patient was given another 500 cc bolus. I did discuss the patient with the family member who is concerned that she may continue to have issues with this. At this point there are no blood culture results's likely a suspected viral illness. I discussed the patient's case with the hospitalist who agreed to further evaluate and treat the patient. Head Trauma GCS Score: 14 Medication Reconcilliation Current Medication List: was personally reviewed by me Blood Pressure Screening Patient's blood pressure: Normal blood pressure Blood pressure disposition: Did not require urgent referral Consults Time Called: 2127 Consulting Physician: Dr. Dianna Ely, [place] Returned Call: 2130 Discussed the patient's case. The patient will be evaluated for further treatment and disposition. Impression Primary Impression: Sepsis Additional Impressions: Fever Influenza-like symptoms Critical Care I have personally spent greater than 45 minutes of critical care time in the direct management of this patient. This includes bedside care, interpretation of diagnostic studies, and testing, discussion with consultants, patient, and family members, and other required patient management activities. This 45 minutes is in excess of all separately billable procedures. Scribe Attestation The scribe's documentation has been prepared under my direction and personally reviewed by me in its entirety. I confirm that the note above accurately reflects all work, treatment, procedures, and medical decision making performed by me. Departure Information Dispostion Being Evaluated By Hospitalist Naomi Handy (PCP) Problem Qualifiers Primary Impression: Sepsis Sepsis type: sepsis due to unspecified organism Qualified Codes: A41.9 - Sepsis, unspecified organism Additional Impressions: Fever Fever type: unspecified Qualified Codes: R50.9 - Fever, unspecified
[2018-01-08] MEDS ORDERED: OPTIRAY 320 IV PRN (15:00)
[2018-01-08] MEDS ORDERED: ACETAMINOPHEN SOLN 650MG/20.3 ML UDC PO STA (15:08)
--- NOTE | 2018-01-08 15:15 | DIAGNOSTIC IMAGING REPORT ---
CHEST ONE VIEW PORTABLE CLINICAL HISTORY: 72 years-old Female presenting with Sepsis. TECHNIQUE: Portable upright AP view of the chest was obtained. COMPARISON: 01/07/2018. FINDINGS: Atherosclerosis of the aortic arch. Cardiac silhouette normal in size. Lungs and pleural spaces clear. Osseous structures normal. Upper abdomen normal. IMPRESSION: 1. No acute cardiopulmonary disease. Electronically signed by: Rodríguez Jose M.D. 01/08/2018 3:14 PM Dictated Date/Time: 01/08/2018 3:13 PM
[2018-01-08] MEDS ORDERED: NORMOSOL R 1,000 ML IV STA (15:20)
[2018-01-08 15:51] LABS: BASO % 0.1 %; BASO ABS # 0.01 K/uL (0-0.2); HEMATOCRIT 36.6 % (37-47); HEMOGLOBIN 12.4 g/dL (12.0-16.0); IG# 0.06 K/uL (0.00-0.02); LYMPH % 3.1 %; LYMPH ABS # 0.49 K/uL (1.2-3.4); MEAN CELL VOLUME 89.3 fL (80-100); MEAN CORPUSCULAR HEMOGLOBIN 30.2 pg (25-34); MEAN CORPUSCULAR HGB CONC 33.9 g/dl (32-36); MEAN PLATELET VOLUME 10.9 fL (7.4-10.4); MONO % 10.4 %; MONO ABS # 1.65 K/uL (0.11-0.59); NEUT ABS # 13.72 K/uL (1.4-6.5); PLATELET COUNT 165 K/uL (130-400); RED CELL DISTRIBUTION WIDTH CV 14.1 % (11.5-14.5); RED CELL DISTRIBUTION WIDTH SD 46.6 fL (36.4-46.3); WHITE BLOOD COUNT 15.93 K/uL (4.8-10.8)
[2018-01-08 16:02] LABS: INR 1.3 (0.9-1.1); PTT PATIENT 30.8 SECONDS (21.0-31.0)
[2018-01-08 16:17] LABS: CALCIUM 8.4 mg/dl (8.5-10.1); CREATININE 0.72 mg/dl (0.60-1.20)
[2018-01-08 16:21] LABS: PHOSPHORUS 1.7 mg/dl (2.5-4.9); TOTAL PROTEIN 6.6 gm/dl (6.4-8.2)
[2018-01-08] MEDS ORDERED: CALCIUM GLUCONATE 10% 10 ML VIAL IV STA (16:27)
[2018-01-08] MEDS ORDERED: POTASSIUM PHOSPHATE INJ 18 MMOL in SODIUM CHLORIDE 0.9% 500ML 500 ML IV STA (16:34)
[2018-01-08 17:15] LABS: POTASSIUM 2.9 mmol/L (3.5-5.1)
--- NOTE | 2018-01-08 17:17 | DIAGNOSTIC IMAGING REPORT ---
CT SCAN OF THE CHEST, ABDOMEN, AND PELVIS WITH IV CONTRAST CLINICAL HISTORY: Fever. COMPARISON STUDY: Chest x-ray dated 01/08/2018. Chest CT dated 06/03/2017. TECHNIQUE: Following the IV administration of 93 of Optiray 320, CT scan of the chest, abdomen, and pelvis was performed from the thoracic inlet to the proximal femora. Images are reviewed in the axial, sagittal, and coronal planes. IV contrast was administered without complication. Automated dose control exposure was utilized. A dose lowering technique was utilized adhering to the principles of ALARA. The examination is degraded by streak artifact from the patient's arms which could not be elevated above the chest or abdomen. The examination is also compromised by motion artifact. CT DOSE: 644.44 mGy.cm FINDINGS: CHEST: Thyroid: Markedly atrophic. Thoracic aorta: There is mild atherosclerotic calcification of the thoracic aorta, which is normal in caliber and demonstrates bovine variant arch anatomy. No dissection is seen. High-grade stenosis is suggested in the proximal left subclavian artery. Pulmonary vasculature: The pulmonary trunk is normal in caliber. There are no filling defects identified in the central pulmonary vessels to indicate pulmonary embolus. Note that this examination was not protocoled for evaluation of the pulmonary arteries. Heart: The heart is normal in size and configuration, and without pericardial effusion. There are coronary artery calcifications. Lungs and pleural spaces: Evaluation of lung parenchyma is degraded by motion artifact. No airspace consolidation is seen typical for pneumonia and there is no pleural effusion. Dependent atelectasis is observed. The trachea and central airways are patent. Mediastinum: There is no mediastinal lymphadenopathy. Salima: Clear. Axillae: There is no axillary lymphadenopathy. Bony thorax: The skeletal structures are osteopenic. Degenerative change and hyperkyphosis are noted in the thoracic spine. No lytic or blastic lesions are identified. ABDOMEN AND PELVIS: Liver: Evaluation of the liver is degraded by streak artifact. The contrast-enhanced liver is normal in size, contour, and attenuation. There is no intrahepatic or ductal dilatation. The hepatic veins and portal veins are patent. At least 3 low-attenuation lesions are identified in the right hepatic lobe and measure up to 1.7 cm. Foci of peripheral discontinuous nodular enhancement are suggested in these may represent hemangiomas. Gallbladder: Numerous small calcified gallstones are identified. There is no CT evidence of acute cholecystitis. Spleen: Normal in size and attenuation. Pancreas: Moderately atrophic and grossly unremarkable. Adrenal glands: Unremarkable. Kidneys: The contrast enhanced kidneys demonstrate cortical atrophy and are without hydronephrosis. Small external pelvises are noted bilaterally. The kidneys enhance symmetrically. Abdominal vasculature: The abdominal aorta is normal in course and caliber noting moderate atherosclerotic calcification. Bowel: There is advanced colonic diverticulosis without convincing CT evidence of acute diverticulitis. No bowel obstruction is seen. A small duodenal diverticulum is identified. The appendix is not identified. Peritoneum: There is no intraperitoneal free air or abdominal ascites. Lymphadenopathy: None. Pelvic viscera: The bladder is partially decompressed around a [place] catheter. Foci of intraluminal gas are nonspecific and likely related to instrumentation. The uterus is surgically absent. No adnexal lesion is seen. Skeletal structures: The skeletal structures are osteopenic. Mild lumbosacral spondylosis is observed. A posterior disc herniation is suggested at L5-S1. No lytic or blastic lesions are seen. There are healed bilateral pubic ring fractures. IMPRESSION: 1. Streak and motion compromised examination. 2. Dependent atelectasis is noted. The lungs are otherwise clear. No airspace consolidation is seen typical for pneumonia and there is no pleural effusion. 3. There are no acute infectious or inflammatory findings identified in the abdomen or pelvis. 4. Advanced colonic diverticulosis without convincing CT evidence of acute diverticulitis. 5. Cholelithiasis. 6. The bladder is partially decompressed around a [place] catheter. Foci of intraluminal gas are likely related to instrumentation. Correlate with urinalysis will be required. 7. There are least 3 low-attenuation hepatic lesions measuring up to 1.7 cm. Although incompletely characterized, the appearance suggests hemangiomas. Consider nonemergent follow-up liver ultrasound for further assessment. 8. Additional findings as above. Electronically signed by: Sourav Acosta M.D. 01/08/2018 5:16 PM Dictated Date/Time: 01/08/2018 4:50 PM
[2018-01-08] MEDS ORDERED: POTASSIUM CHLORIDE 20 MEQ TABCR PO STA (18:06)
[2018-01-08] MEDS ORDERED: POTASSIUM CHLORIDE 10 MEQ / 100ML WTR IV STA (18:06)
[2018-01-08] MEDS ORDERED: SODIUM CHLORIDE 0.9% 500ML 500 ML IV STA (18:13)
[2018-01-08] MEDS ORDERED: OSELTAMIVIR PHOSPHATE 75 MG CAP PO STA (18:18)
--- NOTE | 2018-01-08 20:12 | History and Physical ---
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 Pt showed up to the ER the night prior, blood cultures were taken and pt was IL'ed with a diagnosis of dehydration. Pt deteriorated throughout the day today and was brought in again gustabo. Pt gustabo received 2L of NSS in the ER and "perked back up". She had poor oral intake today. She is unable to give a history due to her baseline of dementia - historians are son and daughter in law (who works next door at [employer] [employer]). They report patient was not complaining of any pain - they did notice generalized weakness and urinary incontinence. Pt did mention that her belly hurt earlier in the day but she had a normal BM today. For her part pt denies any symptoms. In the ER pt was tachycardic which has somewhat resolved with fluids. Pt baseline: Requires a home caregiver, ambulates on her own, cannot tell us the time or place (at baseline), can carry on a conversation but is forgetful. She appears to be at her baseline when examined. SHx: Smoker in the 80s, 10 pack years. ROS per family: recently started on effexor, falls a few weeks/months back but nothing recent. No diarrhea, no constipation, no fevers, no recent falls, no cough, no hematuria, no hematochezia, no rashes, no MSK pain, no chest pain, no RICHARDSON. Past Medical/Surgical History Medical Problems: (1) Back strain (2) Dehydration (3) Dementia (4) Dementia (5) DVT (deep venous thrombosis) (6) Fall (7) Head trauma (8) Hypertension (9) Multiple contusions (10) Pulmonary embolism (11) Slurred speech (12) Status post fall (13) Thyroid disease Surgical Problems: (1) H/O: hysterectomy (2) Hx of hysterectomy Family History Cancer Heart disease Hypertension Social History Smoking Status: Never Smoker Smokeless Tobacco Use: No Alcohol Use: none Drug Use: none Marital Status: single Occupational Status: retired Immunizations History of Influenza Vaccine: Unknown History of Tetanus Vaccine?: Unknown History of Pneumococcal: Unknown History of Hepatitis B Vaccine: Unknown Allergies Coded Allergies: No Known Allergies (Verified , 01/07/18) Home Medications Scheduled Aspirin Enteric Coated (Ecotrin Or Generic), 81 MG PO QAM Cholecalciferol (Vitamin D3), 1,000 UNITS PO QAM Donepezil Hydrochloride (Donepezil Hcl), 10 MG PO QAM Levothyroxine Sodium (Levothyroxine Sodium), 75 MCG PO DAILY Melatonin (Melatonin), 1 MG PO HS Memantine Hcl (Namenda), 10 MG PO BID Olanzapine (Zyprexa), 1.25 MG PO QAM Olanzapine (Zyprexa), 2.5 MG PO HS Rivaroxaban (Xarelto), 20 MG PO QAM Simvastatin (Zocor), 20 MG PO QPM Venlafaxine Hcl (Effexor Xr), 37.5 MG PO QAM Venlafaxine Hcl (Effexor Xr), 75 MG PO QAM Scheduled PRN Buspirone Hcl (Buspirone Hcl), 5 MG PO BID PRN for Anxiety/Agitation Lorazepam (Ativan), 0.5 MG PO BID PRN for Anxiety/Agitation Review of Systems Unable to determine meaningful ROS from patient. Physical Exam Vital Signs Date Time Temp Pulse Resp B/P (MAP) Pulse Ox O2 Delivery O2 Flow Rate FiO2 01/08/18 19:21 98 01/08/18 18:31 90 18 107/60 95 Room Air 01/08/18 17:30 36.7 99 18 117/64 93 Room Air 01/08/18 16:12 37.2 105 20 132/75 95 Room Air 01/08/18 15:21 119 01/08/18 15:01 93 Room Air 01/08/18 14:50 39.4 132 28 146/79 93 Room Air General Appearance: WD/WN, no apparent distress Head: normocephalic, atraumatic Eyes: normal inspection, PERRL ENT: normal ENT inspection Neck: supple Respiratory/Chest: chest non-tender, lungs clear, normal breath sounds, no respiratory distress, no accessory muscle use Cardiovascular: regular rate, rhythm, no edema, no gallop, no JVD, no murmur Abdomen/GI: normal bowel sounds, non tender, soft, no organomegaly, no pulsatile mass Back: normal inspection, no CVA tenderness Extremities/Musculoskelatal: normal inspection, no calf tenderness Neurologic/Psych: harness rigger II-XII nml as tested, no motor/sensory deficits, alert, normal mood/affect, + pertinent finding (patient tells her her name, when asked to spell her last name she gets to K-O but nothign else, not oriented to place or time, can answer yes/no without difficulty. ) Skin: normal color, warm/dry, no rash Diagnostics Laboratory Results Results Past 24 Hours Test 01/08/18 15:23 01/08/18 15:30 01/08/18 15:35 01/08/18 15:38 Range/Units White Blood Count 15.93 4.8-10.8 K/uL Red Blood Count 4.10 4.2-5.4 M/uL Hemoglobin 12.4 12.0-16.0 g/dL Hematocrit 36.6 37-47 % Mean Corpuscular Volume 89.3 80-100 fL Mean Corpuscular Hemoglobin 30.2 25-34 pg Mean Corpuscular Hemoglobin Concent 33.9 32-36 g/dl Platelet Count 165 130-400 K/uL Mean Platelet Volume 10.9 7.4-10.4 fL Neutrophils (%) (Auto) 86.0 % Lymphocytes (%) (Auto) 3.1 % Monocytes (%) (Auto) 10.4 % Eosinophils (%) (Auto) 0.0 % Basophils (%) (Auto) 0.1 % Neutrophils # (Auto) 13.72 1.4-6.5 K/uL Lymphocytes # (Auto) 0.49 1.2-3.4 K/uL Monocytes # (Auto) 1.65 0.11-0.59 K/uL Eosinophils # (Auto) 0.00 0-0.5 K/uL Basophils # (Auto) 0.01 0-0.2 K/uL RDW Standard Deviation 46.6 36.4-46.3 fL RDW Coefficient of Variation 14.1 11.5-14.5 % Immature Granulocyte % (Auto) 0.4 % Immature Granulocyte # (Auto) 0.06 0.00-0.02 K/uL Prothrombin Time 13.4 9.0-12.0 SECONDS Prothromb Time International Ratio 1.3 0.9-1.1 Activated Partial Thromboplast Time 30.8 21.0-31.0 SECONDS Partial Thromboplastin Ratio 1.2 Sodium Level 139 136-145 mmol/L Potassium Level 2.9 3.5-5.1 mmol/L Chloride Level 109 98-107 mmol/L Carbon Dioxide Level 22 21-32 mmol/L Anion Gap 8.0 3-11 mmol/L Blood Urea Nitrogen 9 7-18 mg/dl Creatinine 0.72 0.60-1.20 mg/dl Est Creatinine Clear Calc Drug Dose 56.7 ml/min Estimated GFR () 97.7 Estimated GFR (Non- 84.3 BUN/Creatinine Ratio 12.2 10-20 Random Glucose 96 70-99 mg/dl Calcium Level 8.4 8.5-10.1 mg/dl Phosphorus Level 1.7 2.5-4.9 mg/dl Magnesium Level 1.8 1.8-2.4 mg/dl Total Bilirubin 1.0 0.2-1 mg/dl Aspartate Amino Transf (AST/SGOT) 36 15-37 U/L Alanine Aminotransferase (ALT/SGPT) 34 12-78 U/L Alkaline Phosphatase 114 45-117 U/L Total Creatine Kinase 71 26-192 U/L Total Protein 6.6 6.4-8.2 gm/dl Albumin 3.0 3.4-5.0 gm/dl Globulin 3.6 2.5-4.0 gm/dl Albumin/Globulin Ratio 0.8 0.9-2 Lipase 95 73-393 U/L Urine Color YELLOW Urine Appearance CLEAR CLEAR Urine pH 7.5 4.5-7.5 Urine Specific [place] 1.006 1.000-1.030 Urine Protein NEG NEG Urine Glucose (UA) NEG NEG Urine Ketones NEG NEG Urine Occult Blood 2+ NEG Urine Nitrite NEG NEG Urine Bilirubin NEG NEG Urine Urobilinogen NEG NEG Urine Leukocyte Esterase NEG NEG Urine WBC (Auto) 1-5 0-5 /hpf Urine RBC (Auto) 0-4 0-4 /hpf Urine Hyaline Casts (Auto) 1-5 0-5 /lpf Urine Epithelial Cells (Auto) 5-10 0-5 /lpf Urine Bacteria (Auto) NEG NEG Venous Blood pH 7.43 7.36-7.41 Venous Blood Partial Pressure CO2 39 38.0-50.0 mmHg Venous Blood Partial Pressure O2 25 mmHg Venous Blood HCO3 25 mmol/L Venous Blood Oxygen Saturation < 60.0 % Venous Blood Base Excess 1.1 mEq/L Bedside Lactic Acid Venous 1.46 0.90-1.70 mmol/L Microbiology Results 01/08/18 Blood Culture, Received Pending 01/08/18 Blood Culture, Received Pending 01/08/18 Urine Culture, Received Pending Diagnostic Radiology CT SCAN OF THE CHEST, ABDOMEN, AND PELVIS WITH IV CONTRAST CLINICAL HISTORY: Fever. COMPARISON STUDY: Chest x-ray dated 01/08/2018. Chest CT dated 06/03/2017. TECHNIQUE: Following the IV administration of 93 of Optiray 320, CT scan of the chest, abdomen, and pelvis was performed from the thoracic inlet to the proximal femora. Images are reviewed in the axial, sagittal, and coronal planes. IV contrast was administered without complication. Automated dose control exposure was utilized. A dose lowering technique was utilized adhering to the principles of ALARA. The examination is degraded by streak artifact from the patient's arms which could not be elevated above the chest or abdomen. The examination is also compromised by motion artifact. CT DOSE: 644.44 mGy.cm FINDINGS: CHEST: Thyroid: Markedly atrophic. Thoracic aorta: There is mild atherosclerotic calcification of the thoracic aorta, which is normal in caliber and demonstrates bovine variant arch anatomy. No dissection is seen. High-grade stenosis is suggested in the proximal left subclavian artery. Pulmonary vasculature: The pulmonary trunk is normal in caliber. There are no filling defects identified in the central pulmonary vessels to indicate pulmonary embolus. Note that this examination was not protocoled for evaluation of the pulmonary arteries. Heart: The heart is normal in size and configuration, and without pericardial effusion. There are coronary artery calcifications. Lungs and pleural spaces: Evaluation of lung parenchyma is degraded by motion artifact. No airspace consolidation is seen typical for pneumonia and there is no pleural effusion. Dependent atelectasis is observed. The trachea and central airways are patent. Mediastinum: There is no mediastinal lymphadenopathy. Salima: Clear. Axillae: There is no axillary lymphadenopathy. Bony thorax: The skeletal structures are osteopenic. Degenerative change and hyperkyphosis are noted in the thoracic spine. No lytic or blastic lesions are identified. ABDOMEN AND PELVIS: Liver: Evaluation of the liver is degraded by streak artifact. The contrast-enhanced liver is normal in size, contour, and attenuation. There is no intrahepatic or ductal dilatation. The hepatic veins and portal veins are patent. At least 3 low-attenuation lesions are identified in the right hepatic lobe and measure up to 1.7 cm. Foci of peripheral discontinuous nodular enhancement are suggested in these may represent hemangiomas. Gallbladder: Numerous small calcified gallstones are identified. There is no CT evidence of acute cholecystitis. Spleen: Normal in size and attenuation. Pancreas: Moderately atrophic and grossly unremarkable. Adrenal glands: Unremarkable. Kidneys: The contrast enhanced kidneys demonstrate cortical atrophy and are without hydronephrosis. Small external pelvises are noted bilaterally. The kidneys enhance symmetrically. Abdominal vasculature: The abdominal aorta is normal in course and caliber noting moderate atherosclerotic calcification. Bowel: There is advanced colonic diverticulosis without convincing CT evidence of acute diverticulitis. No bowel obstruction is seen. A small duodenal diverticulum is identified. The appendix is not identified. Peritoneum: There is no intraperitoneal free air or abdominal ascites. Lymphadenopathy: None. Pelvic viscera: The bladder is partially decompressed around a Ch catheter. Foci of intraluminal gas are nonspecific and likely related to instrumentation. The uterus is surgically absent. No adnexal lesion is seen. Skeletal structures: The skeletal structures are osteopenic. Mild lumbosacral spondylosis is observed. A posterior disc herniation is suggested at L5-S1. No lytic or blastic lesions are seen. There are healed bilateral pubic ring fractures. IMPRESSION: 1. Streak and motion compromised examination. 2. Dependent atelectasis is noted. The lungs are otherwise clear. No airspace consolidation is seen typical for pneumonia and there is no pleural effusion. 3. There are no acute infectious or inflammatory findings identified in the abdomen or pelvis. 4. Advanced colonic diverticulosis without convincing CT evidence of acute diverticulitis. 5. Cholelithiasis. 6. The bladder is partially decompressed around a Ch catheter. Foci of intraluminal gas are likely related to instrumentation. Correlate with urinalysis will be required. 7. There are least 3 low-attenuation hepatic lesions measuring up to 1.7 cm. Although incompletely characterized, the appearance suggests hemangiomas. Consider nonemergent follow-up liver ultrasound for further assessment. 8. Additional findings as above. HEAD CT NONCONTRAST (YESTERDAY) CT DOSE: 537.48 mGy.cm HISTORY: Altered mental status. TECHNIQUE: Multiaxial CT images of the head were performed without the use of intravenous contrast. Automated exposure control was utilized for this study. A dose lowering technique was utilized adhering to the principles of ALARA. Comparison: Head CT 09/19/2017. Findings: The paranasal sinuses and mastoid air cells are clear. The calvarium and skull base are intact. There is no mass, hematoma, midline shift, acute infarct. White matter hypodensity is nonspecific but suggestive of microvascular ischemic change. The ventricles and sulci demonstrate mild age-related involutional changes. Impression: No acute intracranial abnormality. Atrophy and microvascular ischemic changes. No significant change. 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 Elevated WBC, Lactate normal, unknown source. Blood cultures from yesterday negative, repeated today. Urine negative. Encephalopathy 2/2 infection (viral vs bacterial) vs dehydration Pt doing well have IVF boluses x 2 in the ER. Empiric Tamiflu despite negative flu swab yesterday in the ER. Empiric Vanc and Zosyn x 48 hours. IVF at 125mls/hr with K riders. Follow up TSH and Procalcitonin. No consult, if not improving consider MRI. Follow white cell count and blood cultures. Non specific T Wave Abnormality Follow up Trop. Follow up Mg and replete. Watch on Tele. EKG in Am. Primary Prevention c/w ASA Incontinence 2/2 Lethargy (new symptom) Placed a ch. Dementia c.w Donepezil & Memantine & Olanzapine Hypothyroid c/w Synthroid follow up TSH Insomnia c/w Melatonin & Ativan PRN. Depression c/w Venlafaxine (recently started, consider holding if you think this is causing the fatigue but it's unlikely) & Buspirone. DVT Proph: On Xarelto Diet: Heart Healthy Dispo: Admit to Tele, PT and OT, Discharge planning eval for home services. FULL CODE. Attending addendum: I have physically seen this patient, have supervised the medical residents activities, and agree with the H&P unless as otherwise noted. Assessment and Plan: Altered mental status/encephalopathy/dehydration/viral versus bacterial infection-- Continue IV fluid rehydration with normal saline and K riders. Follow urine and blood cultures. Continue empiric vancomycin IV and Zosyn IV. Hypertension/nonspecific EKG changes-- The patient will be admitted to telemetry for serial cardiac enzymes, serial EKG's, cardiac rhythm monitoring and a 2-D echocardiogram with Dopplers. Continue with aspirin. Dementia/depression-- Continue donepezil, Namenda, olanzapine, venlafaxine and buspirone. DVT/PE history-- Continue Xarelto Advanced Directives Existing Advance Directive: No Existing Living Will: No Existing Power of Etl Analyst Developer: No Resuscitation Status VTE Prophylaxis Will order VTE Prophylaxis: Yes Social Service Consult None Apply Resident Involvement: Resident Care Provided Care Provided: Adult Hospital Medicine
[2018-01-08] MEDS ORDERED: VANCOMYCIN CONSULT ACTIVE PRN (20:30)
[2018-01-08] MEDS ORDERED: POLYETHYLENE (MIRALAX) 17 GM PACK PO PRN (20:30)
[2018-01-08] MEDS ORDERED: ONDANSETRON INJ 2 MG/ML 2 ML VIAL IV PRN (20:30)
[2018-01-08] MEDS ORDERED: PIPERACILL/TAZOBAC CONSULT ACTIVE PRN (20:30)
[2018-01-08] MEDS ORDERED: ALUMINUM/MAGNESIUM/SIMETH (MAALOX MAX) 30 ML UDC PO PRN (20:30)
[2018-01-08] MEDS ORDERED: LORAZEPAM 0.5 MG TAB PO PRN (20:30)
[2018-01-08] MEDS ORDERED: MAGNESIUM HYDROXIDE SUSP 30 ML UDC PO PRN (20:30)
[2018-01-08] MEDS ORDERED: NITROGLYCERIN 0.4 MG SL PER TAB CHARGE SL PRN (20:30)
[2018-01-08] MEDS ORDERED: IV FLUIDS COMPLETED PRN (20:45)
[2018-01-08 21:00] VITALS: BMI 26.0
[2018-01-08] MEDS ORDERED: NON-FORMULARY MEDICATION (Melatonin 1 MG) PO SCH (21:00)
[2018-01-08 21:41] VITALS: BP 130/71; PULSE 100; TEMP 36.5; O2SAT 97
[2018-01-08] MEDS: MEMANTINE 10 MG TAB PO SCH (22:19)
[2018-01-08] MEDS: SIMVASTATIN 20 MG TAB PO SCH (22:19)
[2018-01-08] MEDS: D5NSS + 20MEQ KCL 1,000 ML IV SCH (22:20)
[2018-01-08] MEDS: OLANZAPINE 2.5 MG TAB PO SCH (22:20)
[2018-01-08] MEDS: PIPERACILL/TAZOBAC IV 3.375 GM in DEXTROSE 5% 100ML 100 ML IV SCH (22:29)
[2018-01-08] MEDS ORDERED: OLAN1TAB7 PO (23:08)
[2018-01-08] MEDS ORDERED: PNEUMOCOCCAL POLYSACCHARIDES 25 MCG/0.5 ML VIAL/SYR IM. ONE (23:15)
[2018-01-08] MEDS ORDERED: PNEUMOCOCCAL ADMINISTRATION CHARGE ONE (23:15)
[2018-01-09] VITALS (12 sets, daily range): BP systolic 101–163; BP diastolic 65–85; PULSE 81–103; TEMP 36.5–38; O2SAT 93–97; Ht 152.4 cm; Wt 56.1 kg
[2018-01-09] MEDS ORDERED: VANCOMYCIN IV 1,000 MG in SODIUM CHLORIDE 0.9% 250ML 250 ML IV SCH (06:00)
[2018-01-09] MEDS: ACETAMINOPHEN 325 MG TAB PO PRN (06:06)
[2018-01-09] MEDS: LEVOTHYROXINE 75 MCG TAB PO SCH (06:06)
[2018-01-09] MEDS: PIPERACILL/TAZOBAC IV 3.375 GM in DEXTROSE 5% 100ML 100 ML IV SCH ×3 (06:07→22:22)
[2018-01-09 06:29] LABS: BASO % 0.1 %; BASO ABS # 0.02 K/uL (0-0.2); EOS % 0.1 %; EOS ABS # 0.02 K/uL (0-0.5); HEMATOCRIT 34.1 % (37-47); HEMOGLOBIN 11.4 g/dL (12.0-16.0); IG# 0.07 K/uL (0.00-0.02); LYMPH % 8.1 %; LYMPH ABS # 1.45 K/uL (1.2-3.4); MEAN CELL VOLUME 89.7 fL (80-100); MEAN CORPUSCULAR HGB CONC 33.4 g/dl (32-36); MEAN PLATELET VOLUME 10.8 fL (7.4-10.4); MONO % 10.5 %; MONO ABS # 1.88 K/uL (0.11-0.59); NEUT % 80.8 %; NEUT ABS # 14.48 K/uL (1.4-6.5); PLATELET COUNT 167 K/uL (130-400); RED CELL DISTRIBUTION WIDTH CV 14.5 % (11.5-14.5); RED CELL DISTRIBUTION WIDTH SD 47.7 fL (36.4-46.3); WHITE BLOOD COUNT 17.92 K/uL (4.8-10.8)
[2018-01-09 07:00] LABS: ALBUMIN 2.5 gm/dl (3.4-5.0); CALCIUM 8.2 mg/dl (8.5-10.1); CREATININE 0.76 mg/dl (0.60-1.20)
[2018-01-09 07:15] LABS: TOTAL PROTEIN 5.9 gm/dl (6.4-8.2)
[2018-01-09 07:17] LABS: POTASSIUM 3.4 mmol/L (3.5-5.1)
--- NOTE | 2018-01-09 07:48 | Family Medicine Progress Note ---
Progress Note Date of Service Jan 09, 2018. Subjective Pt evaluation today including: conversation w/ patient, conversation w/ family (son) Found patient eating breakfast. History of dementia, states she has no current pain, but unable to answer any further questions. Son and [id number] at bedside, says that she is at "90%" of her baseline at moment. Say that her current answer to questions is her baseline. But they do say she still seems more fatigued. No acute family medical concerns. Additional Comments: Unable to obtain due to baseline dementia. Medications Current Inpatient Medications Medications (Trade) Dose Ordered Sig/Fang Route Start Time Stop Time Status Last Admin Dose Admin Ioversol (Optiray 320) 100 ml UD PRN IV 01/08/18 15:00 01/12/18 14:59 Potassium Chloride/Dextrose/ Sod Cl 1,000 ml @ 75 mls/hr [id number] IV 01/08/18 22:00 02/07/18 21:59 01/08/18 22:20 75 MLS/HR Acetaminophen (Tylenol Tab) 650 mg Q4H PRN PO 01/08/18 20:30 02/07/18 20:29 01/09/18 06:06 650 MG Al Hydrox/Mg Hydrox/Simethicone (Maalox Max Susp) 15 ml Q4H PRN PO 01/08/18 20:30 02/07/18 20:29 Magnesium Hydroxide (Milk Of Magnesia Susp) 30 ml Q12H PRN PO 01/08/18 20:30 02/07/18 20:29 Ondansetron HCl (Zofran Inj) 4 mg Q6H PRN IV 01/08/18 20:30 02/07/18 20:29 Nitroglycerin (Nitrostat Tab) 0.4 mg UD PRN SL 01/08/18 20:30 02/07/18 20:29 Polyethylene (Miralax Powder Packet) 17 gm DAILY PRN PO 01/08/18 20:30 02/07/18 20:29 Miscellaneous (Iv Fluids Completed) 1 ea PRN PRN N/A 01/08/18 20:45 01/08/19 20:44 Oseltamivir Phosphate (Tamiflu Cap) 75 mg BID PO 01/09/18 09:00 01/14/18 08:59 Vancomycin HCl 1000 mg/Sodium Chloride 270 ml @ 125 mls/hr Q16H IV 01/09/18 06:00 01/11/18 05:59 01/09/18 06:06 125 MLS/HR Miscellaneous Information (Consult) 1 ea UD PRN N/A 01/08/18 20:30 02/07/18 20:29 Piperacillin Sod/ Tazobactam Sod 3.375 gm/Dextrose 115 ml @ 28.75 mls/ hr Q8H IV 01/08/18 22:00 01/10/18 21:59 01/09/18 06:07 28.75 MLS/HR Miscellaneous Information (Consult) 1 ea UD PRN N/A 01/08/18 20:30 02/07/18 20:29 Aspirin (Ecotrin Tab) 81 mg QAM PO 01/09/18 09:00 02/08/18 08:59 Buspirone HCl (Buspar Tab) 5 mg BID PRN PO 01/08/18 20:30 02/07/18 20:29 Levothyroxine Sodium (Synthroid Tab) 75 mcg DAILYBB PO 01/09/18 06:30 02/08/18 06:29 01/09/18 06:06 75 MCG Lorazepam (Ativan Tab) 0.5 mg BID PRN PO 01/08/18 20:30 02/07/18 20:29 Memantine (Namenda Tab) 10 mg BID PO 01/08/18 21:00 02/07/18 20:59 01/08/18 22:19 10 MG Olanzapine (Zyprexa Tab) 1.25 mg QAM PO 01/09/18 09:00 02/08/18 08:59 Olanzapine (Zyprexa Tab) 2.5 mg HS PO 01/08/18 21:00 02/07/18 20:59 01/08/18 22:20 2.5 MG Rivaroxaban (Xarelto Tab) 20 mg QAM PO 01/09/18 09:00 02/08/18 08:59 Simvastatin (Zocor Tab) 20 mg QPM PO 01/08/18 21:00 02/07/18 20:59 01/08/18 22:19 20 MG Venlafaxine HCl (effeXOR EXTENDED REL CAP) 37.5 mg QAM PO 01/09/18 09:00 02/08/18 08:59 Venlafaxine HCl (effeXOR EXTENDED REL CAP) 75 mg QAM PO 01/09/18 09:00 02/08/18 08:59 Donepezil HCl (Aricept Tab) 10 mg QAM PO 01/09/18 09:00 02/08/18 08:59 Objective Vital Signs 01/09/18 05:49 Red Blood Count 3.80, Mean Corpuscular Volume 89.7, Mean Corpuscular Hemoglobin 30.0, Mean Corpuscular Hemoglobin Concent 33.4, Mean Platelet Volume 10.8, Neutrophils (%) (Auto) 80.8, Lymphocytes (%) (Auto) 8.1, Monocytes (%) (Auto) 10.5, Eosinophils (%) (Auto) 0.1, Basophils (%) (Auto) 0.1, Neutrophils # (Auto ) 14.48, Lymphocytes # (Auto) 1.45, Monocytes # (Auto) 1.88, Eosinophils # (Auto ) 0.02, Basophils # (Auto) 0.02 01/09/18 05:49 Test 01/08/18 15:23 01/08/18 15:30 01/08/18 15:35 01/08/18 15:38 Prothrombin Time 13.4 SECONDS (9.0-12.0) Prothromb Time International Ratio 1.3 (0.9-1.1) Activated Partial Thromboplast Time 30.8 SECONDS (21.0-31.0) Partial Thromboplastin Ratio 1.2 Phosphorus Level 1.7 mg/dl (2.5-4.9) Total Creatine Kinase 71 U/L (26-192) Lipase 95 U/L (73-393) Urine Color YELLOW Urine Appearance CLEAR (CLEAR) Urine pH 7.5 (4.5-7.5) Urine Specific [place] 1.006 (1.000-1.030) Urine Protein NEG (NEG) Urine Glucose (UA) NEG (NEG) Urine Ketones NEG (NEG) Urine Occult Blood 2+ (NEG) Urine Nitrite NEG (NEG) Urine Bilirubin NEG (NEG) Urine Urobilinogen NEG (NEG) Urine Leukocyte Esterase NEG (NEG) Urine WBC (Auto) 1-5 /hpf (0-5) Urine RBC (Auto) 0-4 /hpf (0-4) Urine Hyaline Casts (Auto) 1-5 /lpf (0-5) Urine Epithelial Cells (Auto) 5-10 /lpf (0-5) Urine Bacteria (Auto) NEG (NEG) Venous Blood pH 7.43 (7.36-7.41) Venous Blood Partial Pressure CO2 39 mmHg (38.0-50.0) Venous Blood Partial Pressure O2 25 mmHg Venous Blood HCO3 25 mmol/L Venous Blood Oxygen Saturation < 60.0 % Venous Blood Base Excess 1.1 mEq/L Bedside Lactic Acid Venous 1.46 mmol/L (0.90-1.70) Test 01/08/18 21:36 01/09/18 05:49 Hepatitis C Antibody Screen NEG (NEG) White Blood Count 17.92 K/uL (4.8-10.8) Red Blood Count 3.80 M/uL (4.2-5.4) Hemoglobin 11.4 g/dL (12.0-16.0) Hematocrit 34.1 % (37-47) Mean Corpuscular Volume 89.7 fL (80-100) Mean Corpuscular Hemoglobin 30.0 pg (25-34) Mean Corpuscular Hemoglobin Concent 33.4 g/dl (32-36) Platelet Count 167 K/uL (130-400) Mean Platelet Volume 10.8 fL (7.4-10.4) Neutrophils (%) (Auto) 80.8 % Lymphocytes (%) (Auto) 8.1 % Monocytes (%) (Auto) 10.5 % Eosinophils (%) (Auto) 0.1 % Basophils (%) (Auto) 0.1 % Neutrophils # (Auto) 14.48 K/uL (1.4-6.5) Lymphocytes # (Auto) 1.45 K/uL (1.2-3.4) Monocytes # (Auto) 1.88 K/uL (0.11-0.59) Eosinophils # (Auto) 0.02 K/uL (0-0.5) Basophils # (Auto) 0.02 K/uL (0-0.2) RDW Standard Deviation 47.7 fL (36.4-46.3) RDW Coefficient of Variation 14.5 % (11.5-14.5) Immature Granulocyte % (Auto) 0.4 % Immature Granulocyte # (Auto) 0.07 K/uL (0.00-0.02) Anion Gap 7.0 mmol/L (3-11) Est Creatinine Clear Calc Drug Dose 48.8 ml/min Estimated GFR () 91.5 Estimated GFR (Non- 78.9 BUN/Creatinine Ratio 9.8 (10-20) Calcium Level 8.2 mg/dl (8.5-10.1) Magnesium Level 1.9 mg/dl (1.8-2.4) Total Bilirubin 0.6 mg/dl (0.2-1) Aspartate Amino Transf (AST/SGOT) 37 U/L (15-37) Alanine Aminotransferase (ALT/SGPT) 39 U/L (12-78) Alkaline Phosphatase 107 U/L (45-117) Troponin I < 0.015 ng/ml (0-0.045) Total Protein 5.9 gm/dl (6.4-8.2) Albumin 2.5 gm/dl (3.4-5.0) Globulin 3.4 gm/dl (2.5-4.0) Albumin/Globulin Ratio 0.7 (0.9-2) Procalcitonin 14.34 ng/ml (0-0.5) Thyroid Stimulating Hormone (TSH) 0.076 uIu/ml (0.300-4.500) Physical Exam Notes: General Appearance: Awake, alert but not oriented, eating breakfast on her own this morning, in NAD. CV: +S1S2 borderline tachycardia, no murmur. Pulm: CTA (B). No accessory muscle use. Abdomen: +BS, soft, non-tender, non-distended. Extremities: No pedal edema or calf tenderness. Moving all extremities easily and naturally. Neuro: Knows name and guessed that she was in a "store" but then said "I don't know". Unsure of date, location. Moving all extremities grossly naturally. Laboratory Results 01/09/18 05:49 Red Blood Count 3.80, Mean Corpuscular Volume 89.7, Mean Corpuscular Hemoglobin 30.0, Mean Corpuscular Hemoglobin Concent 33.4, Mean Platelet Volume 10.8, Neutrophils (%) (Auto) 80.8, Lymphocytes (%) (Auto) 8.1, Monocytes (%) (Auto) 10.5, Eosinophils (%) (Auto) 0.1, Basophils (%) (Auto) 0.1, Neutrophils # (Auto ) 14.48, Lymphocytes # (Auto) 1.45, Monocytes # (Auto) 1.88, Eosinophils # (Auto ) 0.02, Basophils # (Auto) 0.02 01/09/18 05:49 Test 01/08/18 15:23 01/08/18 15:30 01/08/18 15:35 01/08/18 15:38 Prothrombin Time 13.4 SECONDS (9.0-12.0) Prothromb Time International Ratio 1.3 (0.9-1.1) Activated Partial Thromboplast Time 30.8 SECONDS (21.0-31.0) Partial Thromboplastin Ratio 1.2 Phosphorus Level 1.7 mg/dl (2.5-4.9) Total Creatine Kinase 71 U/L (26-192) Lipase 95 U/L (73-393) Urine Color YELLOW Urine Appearance CLEAR (CLEAR) Urine pH 7.5 (4.5-7.5) Urine Specific [place] 1.006 (1.000-1.030) Urine Protein NEG (NEG) Urine Glucose (UA) NEG (NEG) Urine Ketones NEG (NEG) Urine Occult Blood 2+ (NEG) Urine Nitrite NEG (NEG) Urine Bilirubin NEG (NEG) Urine Urobilinogen NEG (NEG) Urine Leukocyte Esterase NEG (NEG) Urine WBC (Auto) 1-5 /hpf (0-5) Urine RBC (Auto) 0-4 /hpf (0-4) Urine Hyaline Casts (Auto) 1-5 /lpf (0-5) Urine Epithelial Cells (Auto) 5-10 /lpf (0-5) Urine Bacteria (Auto) NEG (NEG) Venous Blood pH 7.43 (7.36-7.41) Venous Blood Partial Pressure CO2 39 mmHg (38.0-50.0) Venous Blood Partial Pressure O2 25 mmHg Venous Blood HCO3 25 mmol/L Venous Blood Oxygen Saturation < 60.0 % Venous Blood Base Excess 1.1 mEq/L Bedside Lactic Acid Venous 1.46 mmol/L (0.90-1.70) Test 01/08/18 21:36 01/09/18 05:49 Hepatitis C Antibody Screen NEG (NEG) White Blood Count 17.92 K/uL (4.8-10.8) Red Blood Count 3.80 M/uL (4.2-5.4) Hemoglobin 11.4 g/dL (12.0-16.0) Hematocrit 34.1 % (37-47) Mean Corpuscular Volume 89.7 fL (80-100) Mean Corpuscular Hemoglobin 30.0 pg (25-34) Mean Corpuscular Hemoglobin Concent 33.4 g/dl (32-36) Platelet Count 167 K/uL (130-400) Mean Platelet Volume 10.8 fL (7.4-10.4) Neutrophils (%) (Auto) 80.8 % Lymphocytes (%) (Auto) 8.1 % Monocytes (%) (Auto) 10.5 % Eosinophils (%) (Auto) 0.1 % Basophils (%) (Auto) 0.1 % Neutrophils # (Auto) 14.48 K/uL (1.4-6.5) Lymphocytes # (Auto) 1.45 K/uL (1.2-3.4) Monocytes # (Auto) 1.88 K/uL (0.11-0.59) Eosinophils # (Auto) 0.02 K/uL (0-0.5) Basophils # (Auto) 0.02 K/uL (0-0.2) RDW Standard Deviation 47.7 fL (36.4-46.3) RDW Coefficient of Variation 14.5 % (11.5-14.5) Immature Granulocyte % (Auto) 0.4 % Immature Granulocyte # (Auto) 0.07 K/uL (0.00-0.02) Anion Gap 7.0 mmol/L (3-11) Est Creatinine Clear Calc Drug Dose 48.8 ml/min Estimated GFR () 91.5 Estimated GFR (Non- 78.9 BUN/Creatinine Ratio 9.8 (10-20) Calcium Level 8.2 mg/dl (8.5-10.1) Magnesium Level 1.9 mg/dl (1.8-2.4) Total Bilirubin 0.6 mg/dl (0.2-1) Aspartate Amino Transf (AST/SGOT) 37 U/L (15-37) Alanine Aminotransferase (ALT/SGPT) 39 U/L (12-78) Alkaline Phosphatase 107 U/L (45-117) Troponin I < 0.015 ng/ml (0-0.045) Total Protein 5.9 gm/dl (6.4-8.2) Albumin 2.5 gm/dl (3.4-5.0) Globulin 3.4 gm/dl (2.5-4.0) Albumin/Globulin Ratio 0.7 (0.9-2) Procalcitonin 14.34 ng/ml (0-0.5) Thyroid Stimulating Hormone (TSH) 0.076 uIu/ml (0.300-4.500) Assessment and Plan 72 yo female admitted on [id number] for altered mental status. 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 Issues with dehydration as well. Has fever and leukocytosis without clear source. Lactate normal but elevated procalcitonin. No obvious respiratory issues, good room SpO2, clear lungs on auscultation, and no focal lung findings on CT chest. No reported recent diarrhea. Non-tender abdomen and no evidence of focal infection on CT a/p. UA reassuring and 04Apr UCx pending. 04Apr BCx x 2 pending as well. 05Apr started on empiric vancomycin, zosyn, and tamiflu. Per family this morning, patient is "90% back" to her baseline level of dementia but still looks fatigued. - Providing ongoing IVF here. Suspect dehydration played a significant part in the AMS, which has since improved with rehydration. - Antibiotics as above until cultures return. Will stop tamiflu as it does not seem classically influenza-like. - Will ask speech to evaluate for possible aspiration, as there has been a noted cough during meals. Non-specific T wave abnormality: TnI x 2 negative. No reports of CP. On telemetry, monitoring. Urinary incontinence: Recent symptom. UA reassuring against infection, but 04Apr UCx pending. Menon placed acutely. Previous medical issues: - Hypothyroidism: TSH here 0.076, likely due to sick euthyroid from the undifferentiated underlying infection. On home synthroid 75 mcg daily. - Dementia: On home donepezil 10 daily, memantine 10 bid, and olanzapine 1.5 am & 2.5 HS. - Insomnia: On home melatonin. - Depression: On home venlafaxine 75 and buspirone 5 bid prn. Code status: Full code. Diet: Regular diet DVT prophy: Xarelto. PT/OT: Ordered. Dispo: Admit to telemetry. Resident Physician Supervision Note: I interviewed and examined the patient. Discussed with Dr. Patel and agree with findings and plan as documented in the note. Any exceptions or clarifications are listed here: None Documented By: Bernardo Camilo no HPI or ROS obtainable frompt. family notes she's sleepier this afternoon than she was this AM but still better than she was when she came in vitals noted nad breathing unlabored no pallor or icterus no r/r/w good effort febrile illness / dehydration - empiric antibiotics, IV fluids, supportive care , serial exams. with new incontinence ?UTI. cultures and blood cultures pending Resident Tracking Resident Involvement: Resident Care Provided Care Provided: Adult Hospital Medicine (inpatient)
[2018-01-09] MEDS: DONEPEZIL HCL 10 MG TAB PO SCH (08:12)
[2018-01-09] MEDS: VENLAFAXINE HCL XR 75 MG CAPXR PO SCH (08:13)
[2018-01-09] MEDS: MEMANTINE 10 MG TAB PO SCH ×2 (08:13→20:29)
[2018-01-09] MEDS: VENLAFAXINE HCL XR 37.5 MG CAPXR PO SCH (08:13)
[2018-01-09] MEDS: ASPIRIN 81 MG ECTAB PO SCH (08:13)
[2018-01-09] MEDS: RIVAROXABAN 10 MG TAB PO SCH (08:13)
[2018-01-09] MEDS: OLANZAPINE 2.5 MG TAB PO SCH ×2 (08:13→20:29)
[2018-01-09] MEDS ORDERED: OSELTAMIVIR PHOSPHATE 75 MG CAP PO SCH (09:00)
[2018-01-09] MEDS: D5NSS + 20MEQ KCL 1,000 ML IV SCH (11:23)
[2018-01-09] MEDS: SIMVASTATIN 20 MG TAB PO SCH (20:29)
[2018-01-09] MEDS: OSELTAMIVIR PHOSPHATE SUSP 30 MG/5 ML UDP PO SCH (20:35)
[2018-01-10] VITALS (9 sets, daily range): BP systolic 129–166; BP diastolic 82–105; PULSE 85–112; TEMP 36.4–37.2; O2SAT 93–98
[2018-01-10] MEDS ORDERED: VANCOMYCIN IV 1,000 MG in SODIUM CHLORIDE 0.9% 250ML 250 ML IV SCH ×2
[2018-01-10] MEDS: D5NSS + 20MEQ KCL 1,000 ML IV SCH ×2 (00:05→13:43)
[2018-01-10] MEDS: PIPERACILL/TAZOBAC IV 3.375 GM in DEXTROSE 5% 100ML 100 ML IV SCH ×2 (05:43→13:43)
[2018-01-10] MEDS: LEVOTHYROXINE 75 MCG TAB PO SCH (05:44)
[2018-01-10 06:46] LABS: BASO % 0.1 %; BASO ABS # 0.02 K/uL (0-0.2); EOS % 0.8 %; EOS ABS # 0.11 K/uL (0-0.5); HEMOGLOBIN 10.9 g/dL (12.0-16.0); IG# 0.04 K/uL (0.00-0.02); LYMPH % 12.9 %; LYMPH ABS # 1.88 K/uL (1.2-3.4); MEAN CELL VOLUME 90.2 fL (80-100); MEAN CORPUSCULAR HEMOGLOBIN 29.8 pg (25-34); MEAN PLATELET VOLUME 11.2 fL (7.4-10.4); MONO % 9.3 %; MONO ABS # 1.35 K/uL (0.11-0.59); NEUT % 76.6 %; NEUT ABS # 11.13 K/uL (1.4-6.5); PLATELET COUNT 160 K/uL (130-400); RED CELL DISTRIBUTION WIDTH CV 14.3 % (11.5-14.5); RED CELL DISTRIBUTION WIDTH SD 47.3 fL (36.4-46.3); WHITE BLOOD COUNT 14.53 K/uL (4.8-10.8)
[2018-01-10 07:15] LABS: CALCIUM 8.3 mg/dl (8.5-10.1); CREATININE 0.67 mg/dl (0.60-1.20); POTASSIUM 3.4 mmol/L (3.5-5.1)
[2018-01-10] MEDS: DONEPEZIL HCL 10 MG TAB PO SCH (08:38)
[2018-01-10] MEDS: VENLAFAXINE HCL XR 37.5 MG CAPXR PO SCH (08:38)
[2018-01-10] MEDS: OSELTAMIVIR PHOSPHATE SUSP 30 MG/5 ML UDP PO SCH (08:39)
[2018-01-10] MEDS: ASPIRIN 81 MG ECTAB PO SCH (08:39)
[2018-01-10] MEDS: OLANZAPINE 2.5 MG TAB PO SCH ×2 (08:39→21:23)
[2018-01-10] MEDS: VENLAFAXINE HCL XR 75 MG CAPXR PO SCH (08:39)
[2018-01-10] MEDS: MEMANTINE 10 MG TAB PO SCH ×2 (08:39→21:23)
[2018-01-10] MEDS: RIVAROXABAN 10 MG TAB PO SCH (08:39)
--- NOTE | 2018-01-10 08:57 | Family Medicine Progress Note ---
Progress Note Date of Service Jan 10, 2018. Subjective Pt evaluation today including: conversation w/ patient, conversation w/ family (son) This morning, found patient sitting in her bedside chair. Would say 'good morning' to her [id number] that just got in the room, otherwise was not answering questions for me. Per son, she seems to have less energy this morning and was noted to be agitated most of the night, up until around 6 am. He says the CPAP mask here doesn't seem to fit as well as the one at home. Otherwise no acute stated concerns by the son. This afternoon found patient, having just woken up from sleeping all day, sitting in a chair and very slowly eating her dinner with a little assistance. Says "hi" but nothing further. Additional Comments: Unable to obtain due to baseline dementia. Medications Current Inpatient Medications Medications (Trade) Dose Ordered Sig/Fang Route Start Time Stop Time Status Last Admin Dose Admin Ioversol (Optiray 320) 100 ml UD PRN IV 01/08/18 15:00 01/12/18 14:59 Potassium Chloride/Dextrose/ Sod Cl 1,000 ml @ 75 mls/hr [id number] IV 01/08/18 22:00 02/07/18 21:59 01/10/18 00:05 75 MLS/HR Acetaminophen (Tylenol Tab) 650 mg Q4H PRN PO 01/08/18 20:30 02/07/18 20:29 01/09/18 06:06 650 MG Al Hydrox/Mg Hydrox/Simethicone (Maalox Max Susp) 15 ml Q4H PRN PO 01/08/18 20:30 02/07/18 20:29 Magnesium Hydroxide (Milk Of Magnesia Susp) 30 ml Q12H PRN PO 01/08/18 20:30 02/07/18 20:29 Ondansetron HCl (Zofran Inj) 4 mg Q6H PRN IV 01/08/18 20:30 02/07/18 20:29 Nitroglycerin (Nitrostat Tab) 0.4 mg UD PRN SL 01/08/18 20:30 02/07/18 20:29 Polyethylene (Miralax Powder Packet) 17 gm DAILY PRN PO 01/08/18 20:30 02/07/18 20:29 Miscellaneous (Iv Fluids Completed) 1 ea PRN PRN N/A 01/08/18 20:45 01/08/19 20:44 Miscellaneous Information (Consult) 1 ea UD PRN N/A 01/08/18 20:30 02/07/18 20:29 Piperacillin Sod/ Tazobactam Sod 3.375 gm/Dextrose 115 ml @ 28.75 mls/ hr Q8H IV 01/08/18 22:00 01/10/18 21:59 01/10/18 05:43 28.75 MLS/HR Miscellaneous Information (Consult) 1 ea UD PRN N/A 01/08/18 20:30 02/07/18 20:29 Aspirin (Ecotrin Tab) 81 mg QAM PO 01/09/18 09:00 02/08/18 08:59 01/10/18 08:39 81 MG Buspirone HCl (Buspar Tab) 5 mg BID PRN PO 01/08/18 20:30 02/07/18 20:29 01/09/18 14:57 5 MG Levothyroxine Sodium (Synthroid Tab) 75 mcg DAILYBB PO 01/09/18 06:30 02/08/18 06:29 01/10/18 05:44 75 MCG Lorazepam (Ativan Tab) 0.5 mg BID PRN PO 01/08/18 20:30 02/07/18 20:29 Memantine (Namenda Tab) 10 mg BID PO 01/08/18 21:00 02/07/18 20:59 01/10/18 08:39 10 MG Olanzapine (Zyprexa Tab) 1.25 mg QAM PO 01/09/18 09:00 02/08/18 08:59 01/10/18 08:39 1.25 MG Olanzapine (Zyprexa Tab) 2.5 mg HS PO 01/08/18 21:00 02/07/18 20:59 01/09/18 20:29 2.5 MG Rivaroxaban (Xarelto Tab) 20 mg QAM PO 01/09/18 09:00 02/08/18 08:59 01/10/18 08:39 20 MG Simvastatin (Zocor Tab) 20 mg QPM PO 01/08/18 21:00 02/07/18 20:59 01/09/18 20:29 20 MG Venlafaxine HCl (effeXOR EXTENDED REL CAP) 37.5 mg QAM PO 01/09/18 09:00 02/08/18 08:59 01/10/18 08:38 37.5 MG Venlafaxine HCl (effeXOR EXTENDED REL CAP) 75 mg QAM PO 01/09/18 09:00 02/08/18 08:59 01/10/18 08:39 75 MG Donepezil HCl (Aricept Tab) 10 mg QAM PO 01/09/18 09:00 02/08/18 08:59 01/10/18 08:38 10 MG Oseltamivir Phosphate (Tamiflu Susp) 30 mg BID PO 01/09/18 21:00 01/13/18 09:01 01/10/18 08:39 30 MG Vancomycin HCl 1000 mg/Sodium Chloride 270 ml @ 125 mls/hr Q18H IV 01/10/18 00:00 01/10/18 23:59 01/10/18 00:04 125 MLS/HR Objective Vital Signs Date Time Temp Pulse Resp B/P (MAP) Pulse Ox O2 Delivery O2 Flow Rate FiO2 01/10/18 07:40 36.9 97 16 129/82 (98) 95 Room Air 01/10/18 04:35 36.4 85 17 147/84 (105) 96 Room Air 01/10/18 04:00 Room Air 01/10/18 00:00 Room Air 01/09/18 23:39 36.5 81 17 163/82 (109) 93 Room Air 01/09/18 21:59 97 97 21 01/09/18 20:15 37.2 95 18 145/85 (105) 97 Room Air 01/09/18 20:00 Room Air 01/09/18 16:00 Room Air 01/09/18 15:23 36.7 101 18 144/85 (104) 97 Room Air 01/09/18 12:00 95 Room Air 01/09/18 11:21 36.7 90 16 101/65 (77) 95 Room Air 01/09/18 10:59 97 Physical Exam Notes: General Appearance: Awake, a bit less alert this AM and still not oriented, but appears in NAD. CV: +S1S2 RRR, no murmur. Pulm: CTA (B). No accessory muscle use. Abdomen: +BS, soft, non-tender, non-distended. Extremities: No pedal edema or calf tenderness. Moving all extremities easily and naturally. Ambulated with PT. Neuro: Will say a couple words like "good morning" or "hello" but does not otherwise follow or answer many questions. Moving all extremities grossly naturally. Laboratory Results 01/10/18 06:13 Red Blood Count 3.66, Mean Corpuscular Volume 90.2, Mean Corpuscular Hemoglobin 29.8, Mean Corpuscular Hemoglobin Concent 33.0, Mean Platelet Volume 11.2, Neutrophils (%) (Auto) 76.6, Lymphocytes (%) (Auto) 12.9, Monocytes (%) (Auto) 9.3, Eosinophils (%) (Auto) 0.8, Basophils (%) (Auto) 0.1, Neutrophils # (Auto) 11.13, Lymphocytes # (Auto) 1.88, Monocytes # (Auto) 1.35, Eosinophils # (Auto) 0.11, Basophils # (Auto) 0.02 01/10/18 06:13 Test 01/10/18 06:13 White Blood Count 14.53 K/uL (4.8-10.8) Red Blood Count 3.66 M/uL (4.2-5.4) Hemoglobin 10.9 g/dL (12.0-16.0) Hematocrit 33.0 % (37-47) Mean Corpuscular Volume 90.2 fL (80-100) Mean Corpuscular Hemoglobin 29.8 pg (25-34) Mean Corpuscular Hemoglobin Concent 33.0 g/dl (32-36) Platelet Count 160 K/uL (130-400) Mean Platelet Volume 11.2 fL (7.4-10.4) Neutrophils (%) (Auto) 76.6 % Lymphocytes (%) (Auto) 12.9 % Monocytes (%) (Auto) 9.3 % Eosinophils (%) (Auto) 0.8 % Basophils (%) (Auto) 0.1 % Neutrophils # (Auto) 11.13 K/uL (1.4-6.5) Lymphocytes # (Auto) 1.88 K/uL (1.2-3.4) Monocytes # (Auto) 1.35 K/uL (0.11-0.59) Eosinophils # (Auto) 0.11 K/uL (0-0.5) Basophils # (Auto) 0.02 K/uL (0-0.2) RDW Standard Deviation 47.3 fL (36.4-46.3) RDW Coefficient of Variation 14.3 % (11.5-14.5) Immature Granulocyte % (Auto) 0.3 % Immature Granulocyte # (Auto) 0.04 K/uL (0.00-0.02) Anion Gap 7.0 mmol/L (3-11) Est Creatinine Clear Calc Drug Dose 60.6 ml/min Estimated GFR () 102.5 Estimated GFR (Non- 88.4 BUN/Creatinine Ratio 8.0 (10-20) Calcium Level 8.3 mg/dl (8.5-10.1) Assessment and Plan 72 yo female admitted on [id number] for altered mental status. 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 Suspect a good portion of her AMS was dehydration-related, since corrected. Initial fever has resolved. Leukocytosis is improving. No noted new symptoms per family in room. UCx noted no growth (final). 04Apr BCx x 2 no growth thus far. 05Apr started on empiric vancomycin and zosyn. Still unclear source of potential infection. - Stopping vanc and zosyn, will transition to ceftriaxone to cover for urinary sources. - Asked speech to evaluate for possible aspiration, as there has been a noted cough during meals. Unfortunately patient was sleeping all day. Non-specific T wave abnormality: TnI x 2 negative. No reports of CP. On telemetry, monitoring. Urinary incontinence: Recent symptom. UA and UCx argue against infection, but a UTI would still well-explain her symptoms. Menon placed acutely. Previous medical issues: - Hypothyroidism: TSH here 0.076, likely due to sick euthyroid from the undifferentiated underlying infection. On home synthroid 75 mcg daily. - Dementia: On home donepezil 10 daily, memantine 10 bid, and olanzapine 1.5 am & 2.5 HS. - Insomnia: On home melatonin. - Depression: On home venlafaxine 75 and buspirone 5 bid prn. Code status: Full code. Diet: Regular diet DVT prophy: Xarelto. PT/OT: PT noted her mobility seemed close to baseline. OT recommended home OT evaluation for safety. Dispo: Admit to telemetry. Lives with son at home. Resident Physician Supervision Note: I interviewed and examined the patient. Discussed with Dr. Patel and agree with findings and plan as documented in the note. Any exceptions or clarifications are listed here: None Documented By: Bernardo Camilo no HPI or ROS obtainable from pt. had a rough night, but eating now vitals noted nad breathing unlabored no pallor or icterus no r/r/w good effort febrile illness / dehydration - empiric antibiotics (presumed culture negative UTI since new incontinence as only symptom, duration seems too long for viral without something more clearly flu like), IV fluids, supportive care, serial exams. otherwise as above, offered support and guidance to family Resident Tracking Resident Involvement: Resident Care Provided Care Provided: Adult Hospital Medicine (inpatient)
[2018-01-10] MEDS: CEFTRIAXONE SOD INJ 1,000 MG in DEXTROSE 5% 50ML 50 ML IV SCH (18:50)
[2018-01-10] MEDS: SIMVASTATIN 20 MG TAB PO SCH (21:23)
[2018-01-11] MEDS: D5NSS + 20MEQ KCL 1,000 ML IV SCH ×2 (03:26→16:44)
[2018-01-11 04:32] VITALS: BP 170/104; PULSE 111; TEMP 36.5; O2SAT 95
[2018-01-11 05:37] LABS: BASO % 0.2 %; BASO ABS # 0.02 K/uL (0-0.2); EOS ABS # 0.13 K/uL (0-0.5); HEMATOCRIT 35.9 % (37-47); IG# 0.03 K/uL (0.00-0.02); LYMPH % 16.5 %; LYMPH ABS # 2.15 K/uL (1.2-3.4); MEAN CELL VOLUME 89.8 fL (80-100); MEAN CORPUSCULAR HGB CONC 33.4 g/dl (32-36); MEAN PLATELET VOLUME 10.4 fL (7.4-10.4); MONO % 9.8 %; MONO ABS # 1.28 K/uL (0.11-0.59); NEUT % 72.3 %; NEUT ABS # 9.44 K/uL (1.4-6.5); PLATELET COUNT 185 K/uL (130-400); RED CELL DISTRIBUTION WIDTH CV 14.4 % (11.5-14.5); RED CELL DISTRIBUTION WIDTH SD 47.8 fL (36.4-46.3); WHITE BLOOD COUNT 13.05 K/uL (4.8-10.8)
[2018-01-11 06:05] LABS: CALCIUM 8.9 mg/dl (8.5-10.1); CREATININE 0.75 mg/dl (0.60-1.20); POTASSIUM 3.5 mmol/L (3.5-5.1)
[2018-01-11] MEDS: LEVOTHYROXINE 75 MCG TAB PO SCH (06:17)
[2018-01-11 07:40] VITALS: BP 154/94; PULSE 99; TEMP 37; O2SAT 93
[2018-01-11] MEDS: RIVAROXABAN 10 MG TAB PO SCH (08:38)
[2018-01-11] MEDS: VENLAFAXINE HCL XR 37.5 MG CAPXR PO SCH (08:38)
[2018-01-11] MEDS: DONEPEZIL HCL 10 MG TAB PO SCH (08:38)
[2018-01-11] MEDS: ASPIRIN 81 MG ECTAB PO SCH (08:38)
[2018-01-11] MEDS: MEMANTINE 10 MG TAB PO SCH ×2 (08:38→21:08)
[2018-01-11] MEDS: OLANZAPINE 2.5 MG TAB PO SCH (08:39)
[2018-01-11] MEDS: VENLAFAXINE HCL XR 75 MG CAPXR PO SCH (08:39)
--- NOTE | 2018-01-11 09:33 | Family Medicine Progress Note ---
Progress Note Date of Service Jan 11, 2018. Subjective Pt evaluation today including: conversation w/ patient, conversation w/ family (son) This morning, found patient sitting in her bedside chair. When asked how she is doing, she said "Not good". After asking a series of places, eventually said "my belly" is painful for her. Son says this is a new complaint. Son is also concerned she has far less energy over the past 24 hours as possible and that her neck may be getting stiff since she isn't moving it much. No noted new symptoms or concerns. This afternoon, found patient lying upright in bed. When asked if her belly hurt her at all, she said "no". She did not note any present pains or acute concerns. Additional Comments: Unable to fully obtain (except HPI) due to baseline dementia. Medications Current Inpatient Medications Medications (Trade) Dose Ordered Sig/Fang Route Start Time Stop Time Status Last Admin Dose Admin Ioversol (Optiray 320) 100 ml UD PRN IV 01/08/18 15:00 01/12/18 14:59 Potassium Chloride/Dextrose/ Sod Cl 1,000 ml @ 75 mls/hr [id number] IV 01/08/18 22:00 02/07/18 21:59 01/11/18 03:26 75 MLS/HR Acetaminophen (Tylenol Tab) 650 mg Q4H PRN PO 01/08/18 20:30 02/07/18 20:29 01/09/18 06:06 650 MG Al Hydrox/Mg Hydrox/Simethicone (Maalox Max Susp) 15 ml Q4H PRN PO 01/08/18 20:30 02/07/18 20:29 Magnesium Hydroxide (Milk Of Magnesia Susp) 30 ml Q12H PRN PO 01/08/18 20:30 02/07/18 20:29 Ondansetron HCl (Zofran Inj) 4 mg Q6H PRN IV 01/08/18 20:30 02/07/18 20:29 Nitroglycerin (Nitrostat Tab) 0.4 mg UD PRN SL 01/08/18 20:30 02/07/18 20:29 Polyethylene (Miralax Powder Packet) 17 gm DAILY PRN PO 01/08/18 20:30 02/07/18 20:29 Miscellaneous (Iv Fluids Completed) 1 ea PRN PRN N/A 01/08/18 20:45 01/08/19 20:44 Aspirin (Ecotrin Tab) 81 mg QAM PO 01/09/18 09:00 02/08/18 08:59 01/11/18 08:38 81 MG Buspirone HCl (Buspar Tab) 5 mg BID PRN PO 01/08/18 20:30 02/07/18 20:29 01/09/18 14:57 5 MG Levothyroxine Sodium (Synthroid Tab) 75 mcg DAILYBB PO 01/09/18 06:30 02/08/18 06:29 01/11/18 06:17 75 MCG Lorazepam (Ativan Tab) 0.5 mg BID PRN PO 01/08/18 20:30 02/07/18 20:29 Memantine (Namenda Tab) 10 mg BID PO 01/08/18 21:00 02/07/18 20:59 01/11/18 08:38 10 MG Olanzapine (Zyprexa Tab) 1.25 mg QAM PO 01/09/18 09:00 02/08/18 08:59 01/11/18 08:39 1.25 MG Olanzapine (Zyprexa Tab) 2.5 mg HS PO 01/08/18 21:00 02/07/18 20:59 01/10/18 21:23 2.5 MG Rivaroxaban (Xarelto Tab) 20 mg QAM PO 01/09/18 09:00 02/08/18 08:59 01/11/18 08:38 20 MG Simvastatin (Zocor Tab) 20 mg QPM PO 01/08/18 21:00 02/07/18 20:59 01/10/18 21:23 20 MG Venlafaxine HCl (effeXOR EXTENDED REL CAP) 37.5 mg QAM PO 01/09/18 09:00 02/08/18 08:59 01/11/18 08:38 37.5 MG Venlafaxine HCl (effeXOR EXTENDED REL CAP) 75 mg QAM PO 01/09/18 09:00 02/08/18 08:59 01/11/18 08:39 75 MG Donepezil HCl (Aricept Tab) 10 mg QAM PO 01/09/18 09:00 5/5/18 08:59 01/11/18 08:38 10 MG Ceftriaxone Sodium 1000 mg/ Dextrose 60 ml @ 100 mls/hr Q24H IV 01/10/18 19:00 01/15/18 18:59 01/10/18 18:50 100 MLS/HR Objective Vital Signs Date Time Temp Pulse Resp B/P (MAP) Pulse Ox O2 Delivery O2 Flow Rate FiO2 01/11/18 07:45 Room Air 01/11/18 07:40 37.0 99 16 154/94 (114) 93 01/11/18 04:32 36.5 111 20 170/104 (126) 95 BiPAP 01/11/18 04:00 CPAP 01/11/18 00:00 CPAP 01/10/18 23:24 36.6 106 18 166/105 (125) 94 BiPAP 01/10/18 22:24 98 21 01/10/18 20:00 95 Room Air CPAP 01/10/18 19:39 37.2 112 16 153/85 (107) 93 Room Air 01/10/18 16:00 95 Room Air CPAP 01/10/18 15:13 37.0 112 16 157/93 (114) 95 Room Air 01/10/18 12:00 Room Air 01/10/18 11:25 37.2 96 16 145/92 (109) 94 Room Air Physical Exam Notes: General Appearance: Awake, alert but not oriented, eating breakfast on her own this morning, in NAD. CV: +S1S2 regular tachycardia, no murmur. Pulm: CTA (B). No accessory muscle use. Abdomen: -- AM exam: +BS, soft, some tenderness throughout (hard to tell from facial expressions) but perhaps worse in RLQ, non-distended. -- PM exam: +BS, soft, some tenderness only in epigastric area, non-distended. Extremities: No pedal edema or calf tenderness. Moving all extremities easily and naturally. Neuro: See HPI. Able to slowly feed herself with her right arm, but does not many Laboratory Results 01/11/18 05:23 Red Blood Count 4.00, Mean Corpuscular Volume 89.8, Mean Corpuscular Hemoglobin 30.0, Mean Corpuscular Hemoglobin Concent 33.4, Mean Platelet Volume 10.4, Neutrophils (%) (Auto) 72.3, Lymphocytes (%) (Auto) 16.5, Monocytes (%) (Auto) 9.8, Eosinophils (%) (Auto) 1.0, Basophils (%) (Auto) 0.2, Neutrophils # (Auto) 9.44, Lymphocytes # (Auto) 2.15, Monocytes # (Auto) 1.28, Eosinophils # (Auto) 0.13, Basophils # (Auto) 0.02 01/11/18 05:23 Test 01/11/18 05:23 White Blood Count 13.05 K/uL (4.8-10.8) Red Blood Count 4.00 M/uL (4.2-5.4) Hemoglobin 12.0 g/dL (12.0-16.0) Hematocrit 35.9 % (37-47) Mean Corpuscular Volume 89.8 fL (80-100) Mean Corpuscular Hemoglobin 30.0 pg (25-34) Mean Corpuscular Hemoglobin Concent 33.4 g/dl (32-36) Platelet Count 185 K/uL (130-400) Mean Platelet Volume 10.4 fL (7.4-10.4) Neutrophils (%) (Auto) 72.3 % Lymphocytes (%) (Auto) 16.5 % Monocytes (%) (Auto) 9.8 % Eosinophils (%) (Auto) 1.0 % Basophils (%) (Auto) 0.2 % Neutrophils # (Auto) 9.44 K/uL (1.4-6.5) Lymphocytes # (Auto) 2.15 K/uL (1.2-3.4) Monocytes # (Auto) 1.28 K/uL (0.11-0.59) Eosinophils # (Auto) 0.13 K/uL (0-0.5) Basophils # (Auto) 0.02 K/uL (0-0.2) RDW Standard Deviation 47.8 fL (36.4-46.3) RDW Coefficient of Variation 14.4 % (11.5-14.5) Immature Granulocyte % (Auto) 0.2 % Immature Granulocyte # (Auto) 0.03 K/uL (0.00-0.02) Anion Gap 6.0 mmol/L (3-11) Est Creatinine Clear Calc Drug Dose 53.9 ml/min Estimated GFR () 92.9 Estimated GFR (Non- 80.2 BUN/Creatinine Ratio 10.1 (10-20) Calcium Level 8.9 mg/dl (8.5-10.1) Magnesium Level 2.1 mg/dl (1.8-2.4) Assessment and Plan 72 yo female admitted on [id number] for altered mental status. 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 Suspect a good portion of her AMS was dehydration-related, since corrected. Initial fever has resolved. Leukocytosis is improving. UCx noted no growth ( final). 04Apr BCx x 2 no growth thus far. 05Apr started on empiric vancomycin and zosyn. Still unclear source of potential infection. 06Apr transitioned to ceftriaxone to cover for urinary sources. This morning patient c/o some abdominal pain, but said it had resolved by afternoon re-eval. AM ttp in RLQ, PM ttp in epigastric region, both non-peritoneal. Do not suspect acute surgical issue. Will monitor via serial exams. May have some level of constipation, as patient hasn't had much of a BM thus far. Will watch, though. Speech/swallow eval noted no obvious choking or aspiration. Non-specific T wave abnormality: TnI x 2 negative. No reports of CP. On telemetry, monitoring. Urinary incontinence: Recent symptom. UA and UCx argue against infection, but a UTI would still well-explain her symptoms. Menon placed acutely. Dementia: On home donepezil 10 daily and memantine 10 bid. On admit, had kept patient on home olanzapine 1.5 am & 2.5 HS. However, there is some concern that this medication is not acutely helping her, and may theoretically be related to some of her abnormal vital signs, so will hold the olanzapine for now. Previous medical issues: - Hypothyroidism: TSH here 0.076, likely due to sick euthyroid from the undifferentiated underlying infection. On home synthroid 75 mcg daily. - Insomnia: On home melatonin. - Depression: On home venlafaxine 75 and buspirone 5 bid prn. Code status: Full code. Diet: Regular diet DVT prophy: Xarelto. PT/OT: PT noted her mobility seemed close to baseline. OT recommended home OT evaluation for safety. Dispo: Admit to telemetry. Lives with son at home. Resident Physician Supervision Note: I interviewed and examined the patient. Discussed with Dr. Patel and agree with findings and plan as documented in the note. Any exceptions or clarifications are listed here: None Documented By: Bernardo Leslee complained of abdominal pain earlier doesn't now vitals noted nad breathing unlabored no pallor or icterus no r/r/w good effort, mild RLQ tenderness but less than when dr patel initially examined; some epigastric ttp no guarding no rebound febrile illness / dehydration - empiric antibiotics (presumed culture negative UTI since new incontinence as only symptom, duration seems too long for viral without something more clearly flu like), IV fluids, supportive care, improving abdominal pain - most likley constipation - no worrisome findings. serial exams. otherwise as above, offered support to family Resident Tracking Resident Involvement: Resident Care Provided Care Provided: Adult Hospital Medicine (inpatient)
[2018-01-11 11:45] VITALS: BP 138/84; PULSE 111; TEMP 37; O2SAT 93
[2018-01-11] MEDS: CEFTRIAXONE SOD INJ 1,000 MG in DEXTROSE 5% 50ML 50 ML IV SCH (18:24)
[2018-01-11 19:56] VITALS: BP 167/108; PULSE 115; TEMP 37.4; O2SAT 95
[2018-01-11] MEDS: SIMVASTATIN 20 MG TAB PO SCH (21:08)
[2018-01-11] MEDS: ACETAMINOPHEN 325 MG TAB PO PRN (21:16)
[2018-01-11 22:00] VITALS: PULSE 92; O2SAT 97
[2018-01-12] VITALS (10 sets, daily range): BP systolic 131–192; BP diastolic 77–112; PULSE 96–145; TEMP 36.5–37.4; O2SAT 92–95
[2018-01-12] MEDS ORDERED: HydrALAZINE 10 MG TAB PO STA (04:18)
[2018-01-12] MEDS: ACETAMINOPHEN 325 MG TAB PO PRN (04:35)
[2018-01-12 06:01] LABS: BASO % 0.2 %; BASO ABS # 0.03 K/uL (0-0.2); EOS % 1.3 %; EOS ABS # 0.17 K/uL (0-0.5); HEMATOCRIT 39.3 % (37-47); HEMOGLOBIN 12.9 g/dL (12.0-16.0); IG# 0.05 K/uL (0.00-0.02); LYMPH % 15.7 %; LYMPH ABS # 2.02 K/uL (1.2-3.4); MEAN CELL VOLUME 90.6 fL (80-100); MEAN CORPUSCULAR HEMOGLOBIN 29.7 pg (25-34); MEAN CORPUSCULAR HGB CONC 32.8 g/dl (32-36); MEAN PLATELET VOLUME 10.6 fL (7.4-10.4); MONO % 12.4 %; NEUT ABS # 9.02 K/uL (1.4-6.5); PLATELET COUNT 206 K/uL (130-400); RED CELL DISTRIBUTION WIDTH CV 14.1 % (11.5-14.5); RED CELL DISTRIBUTION WIDTH SD 47.2 fL (36.4-46.3); WHITE BLOOD COUNT 12.89 K/uL (4.8-10.8)
[2018-01-12] MEDS: LEVOTHYROXINE 75 MCG TAB PO SCH (06:04)
[2018-01-12] MEDS: D5NSS + 20MEQ KCL 1,000 ML IV SCH ×2 (06:05→19:19)
[2018-01-12 06:41] LABS: ALBUMIN 2.6 gm/dl (3.4-5.0); CREATININE 0.71 mg/dl (0.60-1.20); POTASSIUM 3.5 mmol/L (3.5-5.1)
[2018-01-12] MEDS ORDERED: POLYETHYLENE (MIRALAX) 17 GM PACK PO ONE (08:37)
[2018-01-12] MEDS: MEMANTINE 10 MG TAB PO SCH ×2 (08:47→22:01)
[2018-01-12] MEDS: VENLAFAXINE HCL XR 37.5 MG CAPXR PO SCH (08:47)
[2018-01-12] MEDS: DONEPEZIL HCL 10 MG TAB PO SCH (08:47)
[2018-01-12] MEDS: RIVAROXABAN 10 MG TAB PO SCH (08:47)
[2018-01-12] MEDS: VENLAFAXINE HCL XR 75 MG CAPXR PO SCH (08:47)
[2018-01-12] MEDS: ASPIRIN 81 MG ECTAB PO SCH (08:47)
--- NOTE | 2018-01-12 09:12 | Family Medicine Progress Note ---
Progress Note Date of Service Jan 12, 2018. Subjective Pt evaluation today including: conversation w/ patient, conversation w/ family (son) Found patient this morning sleeping comfortably with BiPAP mask in place. Son at bedside says overnight it seemed like she had some apneic episodes upwards of 20-30 seconds. At home they have an auto-titrate CPAP, but here she was on a PS of 10, so he increased it to 15. He says that seemed to help significantly. He notes patient had a small BM yesterday and thinks she may be constipated. Finally, he has some questions about management of possible agitation now that she's off olanzapine as well as blood pressure management going forward [she received some hydralazine overnight]. No other acute son concerns noted. Additional Comments: Unable to obtain ROS due to patient's dementia and sleeping. Medications Current Inpatient Medications Medications (Trade) Dose Ordered Sig/Fang Route Start Time Stop Time Status Last Admin Dose Admin Ioversol (Optiray 320) 100 ml UD PRN IV 01/08/18 15:00 01/12/18 14:59 Potassium Chloride/Dextrose/ Sod Cl 1,000 ml @ 75 mls/hr [id number] IV 01/08/18 22:00 02/07/18 21:59 01/12/18 06:05 75 MLS/HR Acetaminophen (Tylenol Tab) 650 mg Q4H PRN PO 01/08/18 20:30 02/07/18 20:29 01/12/18 04:35 650 MG Al Hydrox/Mg Hydrox/Simethicone (Maalox Max Susp) 15 ml Q4H PRN PO 01/08/18 20:30 02/07/18 20:29 Magnesium Hydroxide (Milk Of Magnesia Susp) 30 ml Q12H PRN PO 01/08/18 20:30 02/07/18 20:29 Ondansetron HCl (Zofran Inj) 4 mg Q6H PRN IV 01/08/18 20:30 02/07/18 20:29 Nitroglycerin (Nitrostat Tab) 0.4 mg UD PRN SL 01/08/18 20:30 02/07/18 20:29 Polyethylene (Miralax Powder Packet) 17 gm DAILY PRN PO 01/08/18 20:30 02/07/18 20:29 Miscellaneous (Iv Fluids Completed) 1 ea PRN PRN N/A 01/08/18 20:45 01/08/19 20:44 Aspirin (Ecotrin Tab) 81 mg QAM PO 01/09/18 09:00 02/08/18 08:59 01/12/18 08:47 81 MG Buspirone HCl (Buspar Tab) 5 mg BID PRN PO 01/08/18 20:30 02/07/18 20:29 01/09/18 14:57 5 MG Levothyroxine Sodium (Synthroid Tab) 75 mcg DAILYBB PO 01/09/18 06:30 02/08/18 06:29 01/12/18 06:04 75 MCG Lorazepam (Ativan Tab) 0.5 mg BID PRN PO 01/08/18 20:30 02/07/18 20:29 Memantine (Namenda Tab) 10 mg BID PO 01/08/18 21:00 02/07/18 20:59 01/12/18 08:47 10 MG Olanzapine (Zyprexa Tab) 1.25 mg QAM PO 01/09/18 09:00 02/08/18 08:59 Future Hold 01/11/18 08:39 1.25 MG Olanzapine (Zyprexa Tab) 2.5 mg HS PO 01/08/18 21:00 02/07/18 20:59 Future Hold 01/10/18 21:23 2.5 MG Rivaroxaban (Xarelto Tab) 20 mg QAM PO 01/09/18 09:00 02/08/18 08:59 01/12/18 08:47 20 MG Simvastatin (Zocor Tab) 20 mg QPM PO 01/08/18 21:00 02/07/18 20:59 01/11/18 21:08 20 MG Venlafaxine HCl (effeXOR EXTENDED REL CAP) 37.5 mg QAM PO 01/09/18 09:00 02/08/18 08:59 01/12/18 08:47 37.5 MG Venlafaxine HCl (effeXOR EXTENDED REL CAP) 75 mg QAM PO 01/09/18 09:00 02/08/18 08:59 01/12/18 08:47 75 MG Donepezil HCl (Aricept Tab) 10 mg QAM PO 4/5/18 09:00 02/08/18 08:59 01/12/18 08:47 10 MG Ceftriaxone Sodium 1000 mg/ Dextrose 60 ml @ 100 mls/hr Q24H IV 01/10/18 19:00 01/15/18 18:59 01/11/18 18:24 100 MLS/HR Objective Vital Signs Date Time Temp Pulse Resp B/P (MAP) Pulse Ox O2 Delivery O2 Flow Rate FiO2 01/12/18 07:36 37.0 99 18 143/90 (107) 95 BiPAP 01/12/18 06:22 96 166/90 (115) 01/12/18 04:15 36.9 98 18 192/109 (136) 95 BiPAP 01/12/18 04:00 Room Air CPAP 01/12/18 00:11 36.9 101 16 165/106 (125) 95 BiPAP 01/12/18 00:00 Room Air CPAP 01/11/18 22:00 92 97 21 01/11/18 20:00 Room Air CPAP 01/11/18 19:56 37.4 115 18 167/108 (127) 95 Room Air 01/11/18 16:00 Room Air 01/11/18 12:00 Room Air 01/11/18 11:45 37.0 111 16 138/84 (102) 93 Room Air Physical Exam Notes: General Appearance: This morning sleeping comfortably, in NAD. CV: +S1S2 borderline but regular tachycardia, no murmur. Pulm: CTA (B). No accessory muscle use. Abdomen: AM exam: +BS, soft, no movement or change in facial expression on abdominal palpation this morning, non-distended. Extremities: No pedal edema or calf tenderness. Moving all extremities easily and naturally. Neuro: See HPI. Has been able to slowly feed herself with her right arm, but does not move other extremities much spontaneously. Laboratory Results 01/12/18 05:42 Red Blood Count 4.34, Mean Corpuscular Volume 90.6, Mean Corpuscular Hemoglobin 29.7, Mean Corpuscular Hemoglobin Concent 32.8, Mean Platelet Volume 10.6, Neutrophils (%) (Auto) 70.0, Lymphocytes (%) (Auto) 15.7, Monocytes (%) (Auto) 12.4, Eosinophils (%) (Auto) 1.3, Basophils (%) (Auto) 0.2, Neutrophils # (Auto ) 9.02, Lymphocytes # (Auto) 2.02, Monocytes # (Auto) 1.60, Eosinophils # (Auto ) 0.17, Basophils # (Auto) 0.03 01/12/18 05:42 Test 01/12/18 05:42 White Blood Count 12.89 K/uL (4.8-10.8) Red Blood Count 4.34 M/uL (4.2-5.4) Hemoglobin 12.9 g/dL (12.0-16.0) Hematocrit 39.3 % (37-47) Mean Corpuscular Volume 90.6 fL (80-100) Mean Corpuscular Hemoglobin 29.7 pg (25-34) Mean Corpuscular Hemoglobin Concent 32.8 g/dl (32-36) Platelet Count 206 K/uL (130-400) Mean Platelet Volume 10.6 fL (7.4-10.4) Neutrophils (%) (Auto) 70.0 % Lymphocytes (%) (Auto) 15.7 % Monocytes (%) (Auto) 12.4 % Eosinophils (%) (Auto) 1.3 % Basophils (%) (Auto) 0.2 % Neutrophils # (Auto) 9.02 K/uL (1.4-6.5) Lymphocytes # (Auto) 2.02 K/uL (1.2-3.4) Monocytes # (Auto) 1.60 K/uL (0.11-0.59) Eosinophils # (Auto) 0.17 K/uL (0-0.5) Basophils # (Auto) 0.03 K/uL (0-0.2) RDW Standard Deviation 47.2 fL (36.4-46.3) RDW Coefficient of Variation 14.1 % (11.5-14.5) Immature Granulocyte % (Auto) 0.4 % Immature Granulocyte # (Auto) 0.05 K/uL (0.00-0.02) Anion Gap 8.0 mmol/L (3-11) Est Creatinine Clear Calc Drug Dose 57.2 ml/min Estimated GFR () 99.3 Estimated GFR (Non- 85.7 BUN/Creatinine Ratio 12.5 (10-20) Calcium Level 9.0 mg/dl (8.5-10.1) Total Bilirubin 0.4 mg/dl (0.2-1) Aspartate Amino Transf (AST/SGOT) 36 U/L (15-37) Alanine Aminotransferase (ALT/SGPT) 54 U/L (12-78) Alkaline Phosphatase 169 U/L (45-117) Total Protein 7.0 gm/dl (6.4-8.2) Albumin 2.6 gm/dl (3.4-5.0) Globulin 4.4 gm/dl (2.5-4.0) Albumin/Globulin Ratio 0.6 (0.9-2) Assessment and Plan 72 yo female admitted on [id number] for altered mental status. 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 Suspect a good portion of her AMS was dehydration-related, since corrected. Initial fever has resolved. Leukocytosis is improving. UCx noted no growth ( final). 04Apr BCx x 2 no growth thus far. 05Apr started on empiric vancomycin and zosyn. Still unclear source of potential infection, but working theory is still a UTI. 06Apr transitioned to ceftriaxone to cover for urinary sources. Very likely some concurrent delirium involved as well. - Is on IVF here to maintain hydration. If that stops as part of transition towards d/c, likely needs close PO intake monitoring in near-term due to her frequent sleeping. Urinary incontinence: Recent symptom. UA and UCx argue against infection, but a UTI would still well-explain her symptoms. Menon placed acutely. Non-specific T wave abnormality: TnI x 2 negative. No reports of CP. On telemetry, monitoring. Constipation: Mild, suspected due to small, hard and minimal BM here. Added some miralax prn, but may need to make it scheduled temporarily. Hypertension: Noted here, including receiving a dose of hydralazine overnight ( though no evidence of hypertensive emergency). Much of this is likely due to her being in the hospital, but will start lisinopril 10 mg PO q day to provide some improvement. Needs close PCM f/u once out of hospital to see what her home values are. Dementia: On home donepezil 10 daily and memantine 10 bid. On admit, had kept patient on home olanzapine 1.5 am & 2.5 HS. However, there is some concern that this medication is not acutely helping her, and may theoretically be related to some of her abnormal vital signs, so will hold the olanzapine for now. - Discussed same with patient's son. Depending on how she responds to holding the olanzapine, there will be some risk/benefit analysis on if it needs to be restarted acutely in the hospital. Previous medical issues: - Hypothyroidism: TSH here 0.076, likely due to sick euthyroid from the undifferentiated underlying infection. On home Synthroid 75 mcg daily. - Insomnia: On home melatonin. Patient is on a CPAP machine at home. Will also need to watch BiPAP pressures here to help prevent apneic spells. - Depression: On home venlafaxine 75 and buspirone 5 bid prn. Code status: Full code. Diet: Regular diet DVT prophy: Xarelto. PT/OT: PT noted her mobility seemed close to baseline. OT recommended home OT evaluation for safety. However, needs re-evaluation given ongoing minimal movement state. Dispo: Admit to telemetry. Lives with son at home. Working thought and discussion with family is that she would benefit from going to somewhere like [facility]. Resident Physician Supervision Note: I interviewed and examined the patient. Discussed with Dr. Patel and agree with findings and plan as documented in the note. Any exceptions or clarifications are listed here: None Documented By: Bernardo Camilo doing about the same. no significant abdominal pain vitals noted nad breathing unlabored no pallor or icterus febrile illness / dehydration - empiric antibiotics (presumed culture negative UTI since new incontinence as only symptom, duration seems too long for viral without something more clearly flu like), IV fluids, supportive care, improving abdominal pain - most likley constipation - seems to have resolved extensive discussion w dtr - seems that she's getting overwhelmed w home caregiver situation, but isnt' sure that brother would be OK w fpc placement; for now appears medically will need short term placement due to deconditioning otherwise as above, offered support to family Resident Tracking Resident Involvement: Resident Care Provided Care Provided: Adult Hospital Medicine (inpatient)
[2018-01-12] MEDS: CEFTRIAXONE SOD INJ 1,000 MG in DEXTROSE 5% 50ML 50 ML IV SCH (19:20)
[2018-01-12] MEDS: SIMVASTATIN 20 MG TAB PO SCH (22:01)
[2018-01-12] MEDS ORDERED: HydrALAZINE HCL 20 MG/ML VIAL IV. STA (22:59)
[2018-01-13] VITALS (7 sets, daily range): BP systolic 126–174; BP diastolic 74–102; PULSE 79–132; TEMP 36.4–37.6; O2SAT 93–96
[2018-01-13 00:38] LABS: BASO % 0.1 %; BASO ABS # 0.02 K/uL (0-0.2); EOS % 1.2 %; EOS ABS # 0.18 K/uL (0-0.5); HEMATOCRIT 37.6 % (37-47); HEMOGLOBIN 12.6 g/dL (12.0-16.0); IG# 0.07 K/uL (0.00-0.02); LYMPH % 14.8 %; LYMPH ABS # 2.23 K/uL (1.2-3.4); MEAN CELL VOLUME 89.1 fL (80-100); MEAN CORPUSCULAR HEMOGLOBIN 29.9 pg (25-34); MEAN PLATELET VOLUME 10.5 fL (7.4-10.4); MONO % 11.9 %; MONO ABS # 1.79 K/uL (0.11-0.59); NEUT % 71.5 %; NEUT ABS # 10.79 K/uL (1.4-6.5); PLATELET COUNT 240 K/uL (130-400); RED CELL DISTRIBUTION WIDTH CV 14.3 % (11.5-14.5); RED CELL DISTRIBUTION WIDTH SD 46.9 fL (36.4-46.3); WHITE BLOOD COUNT 15.08 K/uL (4.8-10.8)
[2018-01-13 00:48] LABS: MEAN CORPUSCULAR HGB CONC 33.5 g/dl (32-36)
[2018-01-13 01:54] LABS: BLOOD UREA NITROGEN 10 mg/dl (7-18); CARBON DIOXIDE 20 mmol/L (21-32); CREATININE 0.72 mg/dl (0.60-1.20); GLUCOSE 116 mg/dl (70-99); PHOSPHORUS 2.1 mg/dl (2.5-4.9); POTASSIUM 3.5 mmol/L (3.5-5.1); SODIUM 140 mmol/L (136-145)
[2018-01-13] MEDS: LEVOTHYROXINE 75 MCG TAB PO SCH (05:41)
[2018-01-13 07:42] LABS: BASO % 0.3 %; BASO ABS # 0.04 K/uL (0-0.2); EOS ABS # 0.15 K/uL (0-0.5); IG# 0.09 K/uL (0.00-0.02); LYMPH ABS # 2.15 K/uL (1.2-3.4); MEAN CELL VOLUME 89.9 fL (80-100); MEAN CORPUSCULAR HGB CONC 33.3 g/dl (32-36); MEAN PLATELET VOLUME 10.3 fL (7.4-10.4); MONO % 9.7 %; MONO ABS # 1.48 K/uL (0.11-0.59); NEUT % 74.4 %; PLATELET COUNT 234 K/uL (130-400); RED CELL DISTRIBUTION WIDTH CV 14.2 % (11.5-14.5); WHITE BLOOD COUNT 15.31 K/uL (4.8-10.8)
[2018-01-13 08:12] LABS: ALBUMIN 2.5 gm/dl (3.4-5.0); CALCIUM 9.1 mg/dl (8.5-10.1); CREATININE 0.64 mg/dl (0.60-1.20); POTASSIUM 3.7 mmol/L (3.5-5.1)
[2018-01-13 08:13] LABS: TOTAL PROTEIN 6.7 gm/dl (6.4-8.2)
[2018-01-13] MEDS: D5NSS + 20MEQ KCL 1,000 ML IV SCH (08:44)
[2018-01-13] MEDS: ASPIRIN 81 MG ECTAB PO SCH (08:44)
[2018-01-13] MEDS: ACETAMINOPHEN 325 MG TAB PO PRN (08:44)
[2018-01-13] MEDS: MEMANTINE 10 MG TAB PO SCH ×2 (08:44→21:00)
[2018-01-13] MEDS: RIVAROXABAN 10 MG TAB PO SCH (08:44)
[2018-01-13] MEDS: DONEPEZIL HCL 10 MG TAB PO SCH (08:44)
[2018-01-13] MEDS: VENLAFAXINE HCL XR 37.5 MG CAPXR PO SCH (08:44)
[2018-01-13] MEDS: VENLAFAXINE HCL XR 75 MG CAPXR PO SCH (08:44)
[2018-01-13] MEDS: LISINOPRIL 10 MG TAB PO SCH (08:56)
--- NOTE | 2018-01-13 17:33 | Family Medicine Progress Note ---
Progress Note Date of Service Jan 13, 2018. Subjective Pt evaluation today including: physical exam Voiding: ch catheter in place Patient resting in bed, difficult to arouse. Caregiver Violet at bedside. Per caregiver, concern that she is not herself, seems weaker and does not seem to have same amount of energy Additional Comments: Unable to assess due to patient's dementia and disorientation Medications Current Inpatient Medications Medications (Trade) Dose Ordered Sig/Fang Route Start Time Stop Time Status Last Admin Dose Admin Potassium Chloride/Dextrose/ Sod Cl 1,000 ml @ 75 mls/hr [id number] IV 01/08/18 22:00 02/07/18 21:59 01/13/18 08:44 75 MLS/HR Acetaminophen (Tylenol Tab) 650 mg Q4H PRN PO 01/08/18 20:30 02/07/18 20:29 01/13/18 08:44 650 MG Al Hydrox/Mg Hydrox/Simethicone (Maalox Max Susp) 15 ml Q4H PRN PO 01/08/18 20:30 02/07/18 20:29 Magnesium Hydroxide (Milk Of Magnesia Susp) 30 ml Q12H PRN PO 01/08/18 20:30 02/07/18 20:29 Ondansetron HCl (Zofran Inj) 4 mg Q6H PRN IV 01/08/18 20:30 02/07/18 20:29 Nitroglycerin (Nitrostat Tab) 0.4 mg UD PRN SL 01/08/18 20:30 02/07/18 20:29 Polyethylene (Miralax Powder Packet) 17 gm DAILY PRN PO 01/08/18 20:30 02/07/18 20:29 Miscellaneous (Iv Fluids Completed) 1 ea PRN PRN N/A 01/08/18 20:45 01/08/19 20:44 Aspirin (Ecotrin Tab) 81 mg QAM PO 01/09/18 09:00 02/08/18 08:59 01/13/18 08:44 81 MG Buspirone HCl (Buspar Tab) 5 mg BID PRN PO 01/08/18 20:30 02/07/18 20:29 01/09/18 14:57 5 MG Levothyroxine Sodium (Synthroid Tab) 75 mcg DAILYBB PO 01/09/18 06:30 02/08/18 06:29 01/13/18 05:41 75 MCG Lorazepam (Ativan Tab) 0.5 mg BID PRN PO 01/08/18 20:30 02/07/18 20:29 Memantine (Namenda Tab) 10 mg BID PO 01/08/18 21:00 02/07/18 20:59 01/13/18 08:44 10 MG Olanzapine (Zyprexa Tab) 1.25 mg QAM PO 01/09/18 09:00 02/08/18 08:59 Future Hold 01/11/18 08:39 1.25 MG Olanzapine (Zyprexa Tab) 2.5 mg HS PO 01/08/18 21:00 02/07/18 20:59 Future Hold 01/10/18 21:23 2.5 MG Rivaroxaban (Xarelto Tab) 20 mg QAM PO 01/09/18 09:00 02/08/18 08:59 01/13/18 08:44 20 MG Simvastatin (Zocor Tab) 20 mg QPM PO 01/08/18 21:00 02/07/18 20:59 01/12/18 22:01 20 MG Venlafaxine HCl (effeXOR EXTENDED REL CAP) 37.5 mg QAM PO 01/09/18 09:00 02/08/18 08:59 01/13/18 08:44 37.5 MG Venlafaxine HCl (effeXOR EXTENDED REL CAP) 75 mg QAM PO 01/09/18 09:00 02/08/18 08:59 01/13/18 08:44 75 MG Donepezil HCl (Aricept Tab) 10 mg QAM PO 01/09/18 09:00 02/08/18 08:59 01/13/18 08:44 10 MG Lisinopril (Zestril Tab) 10 mg QAM PO 01/13/18 09:00 02/12/18 08:59 01/13/18 08:56 10 MG Objective Vital Signs Date Time Temp Pulse Resp B/P (MAP) Pulse Ox O2 Delivery O2 Flow Rate FiO2 01/13/18 15:58 37.2 112 18 152/90 (110) 95 Room Air 01/13/18 15:00 36.4 79 18 163/79 (107) 95 01/13/18 11:45 Room Air 01/13/18 11:16 36.8 122 16 126/74 (91) 96 Room Air 01/13/18 07:45 Room Air 01/13/18 07:20 37.3 131 16 174/102 (126) 93 Room Air 01/13/18 04:24 36.5 108 16 161/90 (113) 94 BiPAP 01/13/18 04:00 Room Air CPAP 01/13/18 00:00 Room Air CPAP 01/12/18 23:40 37.4 145 18 131/77 (95) 92 CPAP 01/12/18 22:07 118 165/102 (123) 01/12/18 20:00 Room Air 01/12/18 19:26 36.6 128 16 170/93 (118) 01/12/18 19:06 37.3 121 16 191/112 (138) 94 Room Air Physical Exam General Appearance: WD/WN, no apparent distress Eyes: normal inspection Neck: no JVD Respiratory/Chest: chest non-tender, lungs clear, normal breath sounds Cardiovascular: regular rate, rhythm, no edema, + systolic murmur Abdomen: normal bowel sounds, non tender, soft Extremities: non-tender, no pedal edema Neurologic/Psychiatric: + disoriented, + pertinent finding (Patient somnolent) Skin: normal color, + pertinent finding (Phlebitis from previous IV) Laboratory Results Last Resulted 01/13/18 07:32 Red Blood Count 4.34, Mean Corpuscular Volume 89.9, Mean Corpuscular Hemoglobin 30.0, Mean Corpuscular Hemoglobin Concent 33.3, Mean Platelet Volume 10.3, Neutrophils (%) (Auto) 74.4, Lymphocytes (%) (Auto) 14.0, Monocytes (%) (Auto) 9.7, Eosinophils (%) (Auto) 1.0, Basophils (%) (Auto) 0.3, Neutrophils # (Auto) 11.40, Lymphocytes # (Auto) 2.15, Monocytes # (Auto) 1.48, Eosinophils # (Auto) 0.15, Basophils # (Auto) 0.04 Last Resulted 01/13/18 07:32 Past 24 Hours Test 01/13/18 00:29 Range/Units Troponin I < 0.015 0-0.045 ng/ml Assessment and Plan 72 yo female admitted on [id number] for altered mental status, unknown source. 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 Suspect a good portion of her AMS was dehydration-related, since corrected. Initial fever has resolved. Leukocytosis was improving from 15--17--12, has bumped up to 15.3 again. UCx noted no growth (final). 04Apr BCx x 2 NGTD. 05Apr started on empiric vancomycin and zosyn. Still unclear source of potential infection, but working theory is still a UTI. 06Apr transitioned all abx to ceftriaxone to cover for urinary sources. Very likely some concurrent delirium involved as well. - Peripheral smear shows increased number of neutrophils. - Is on IVF here to maintain hydration. If that stops as part of transition towards d/c, likely needs close PO intake monitoring in near-term due to her frequent sleeping. - Recheck procalcitonin. 14 on admission. Tachycardia: Unclear etiology. Check echo. follow. Hypertension: Noted here, including receiving a dose of hydralazine overnight for the past 2 nights (though no evidence of hypertensive emergency). Much of this is likely due to her being in the hospital, but will start lisinopril 10 mg PO daily to provide some improvement. Needs close PCM f/u once out of hospital to see what her home values are. Urinary incontinence: Recent symptom. UA and UCx argue against infection, but a UTI would still well-explain her symptoms. Ch placed acutely and DCd today Non-specific T wave abnormality: TnI x 2 negative. No reports of CP. On telemetry, monitoring. Constipation: Resolved with miralax Dementia: On home donepezil 10 daily and memantine 10 bid. On admit, had kept patient on home olanzapine 1.5 am & 2.5 HS. However, there is some concern that this medication is not acutely helping her, and may theoretically be related to some of her abnormal vital signs, so will hold the olanzapine for now. - Discussed same with patient's son. Depending on how she responds to holding the olanzapine, there will be some risk/benefit analysis on if it needs to be restarted acutely in the hospital. Hypothyroidism: TSH here 0.076, On home Synthroid 75 mcg daily. Will decrease dose to 25 mcg Previous medical issues: - Insomnia: On home melatonin. Patient is on a CPAP machine at home. Will also need to watch BiPAP pressures here to help prevent apneic spells. - Depression: On home venlafaxine 75 and buspirone 5 bid prn. Code status: Full code. Diet: Regular diet DVT prophy: Xarelto. PT/OT: PT initially noted her mobility seemed close to baseline, but on reevaluation recommended SNF/Rehab. OT initially recommended home OT evaluation for safety. However, needs re-evaluation given ongoing minimal movement state. Dispo: Admit to telemetry. Lives with son at home. Working thought and discussion with family is that she would benefit from going to somewhere like [email or web address]. Hopeful DC tomorrow Resident Tracking Resident Involvement: Resident Care Provided Care Provided: Adult Hospital Medicine Reviewed: Pt Seen/Exam by Me History frail. sleeping in bed. on awakening asked if she could go back to sleep grinder dresser at bedside Constitutional: denies: fever Respiratory: negative: short of breath Cardiovascular: denies chest pain General Appearance: no apparent distress Respiratory: lungs clear, no respiratory distress Cardiovascular: regular rate, rhythm Gastrointestinal: soft Neurologic/Psychiatric: alert Skin Characteristics: warm/dry Assessment/Plan Resident Physician Supervision Note: I independently interviewed and examined the patient and verified the draper history and physical, reviewed labs and image studies, discussed the case with the resident Dr. Odonnell and agree with the findings and care plan.
[2018-01-13] MEDS: POTASSIUM CHLORIDE INJ 40 MEQ in D5W AND NSS 1,000 ML IV SCH (19:16)
[2018-01-13] MEDS: SIMVASTATIN 20 MG TAB PO SCH (21:01)
[2018-01-14] VITALS (8 sets, daily range): BP systolic 130–163; BP diastolic 73–97; PULSE 99–119; TEMP 36.4–37.8; O2SAT 93–96
[2018-01-14] MEDS: POTASSIUM CHLORIDE INJ 40 MEQ in D5W AND NSS 1,000 ML IV SCH ×2 (05:28→15:33)
[2018-01-14 06:29] LABS: HEMATOCRIT 36.8 % (37-47); HEMOGLOBIN 12.2 g/dL (12.0-16.0); MEAN CELL VOLUME 90.6 fL (80-100); MEAN CORPUSCULAR HGB CONC 33.2 g/dl (32-36); MEAN PLATELET VOLUME 10.4 fL (7.4-10.4); PLATELET COUNT 246 K/uL (130-400); RED CELL DISTRIBUTION WIDTH CV 14.6 % (11.5-14.5); RED CELL DISTRIBUTION WIDTH SD 48.2 fL (36.4-46.3); WHITE BLOOD COUNT 13.14 K/uL (4.8-10.8)
[2018-01-14] MEDS ORDERED: LEVOTHYROXINE 50 MCG TAB PO SCH (06:30)
[2018-01-14 07:04] LABS: CALCIUM 8.9 mg/dl (8.5-10.1); CREATININE 0.64 mg/dl (0.60-1.20); POTASSIUM 3.9 mmol/L (3.5-5.1)
[2018-01-14] MEDS: VENLAFAXINE HCL XR 75 MG CAPXR PO SCH (08:14)
[2018-01-14] MEDS: DONEPEZIL HCL 10 MG TAB PO SCH (08:14)
[2018-01-14] MEDS: ASPIRIN 81 MG ECTAB PO SCH (08:15)
[2018-01-14] MEDS: RIVAROXABAN 10 MG TAB PO SCH (08:15)
[2018-01-14] MEDS: LISINOPRIL 10 MG TAB PO SCH (08:15)
[2018-01-14] MEDS: MEMANTINE 10 MG TAB PO SCH ×2 (08:16→21:45)
[2018-01-14] MEDS: VENLAFAXINE HCL XR 37.5 MG CAPXR PO SCH (08:17)
--- NOTE | 2018-01-14 11:05 | ECHOCARDIOGRAM REPORT ---
*NOTICE TO RECEIVING CONSTITUTION PARTY AGENCY This information is strictly Confidential and protected under [place] law. [place] law prohibits you from making any further disclosure of this information unless further disclosure is expressly permitted by the written consent of the person to whom it pertains or is authorized by law. A general authorization for the release of medical or other information is not sufficient for this purpose. Hospital accepts no responsibility if the information is made available to any other person, INCLUDING THE PATIENT. Interpretation Summary * Name: WAYNE WILKINS Study Date: 01/14/2018 07:09 AM BP: 159/80 mmHg * Patient Location: [facility]\S\N279\S\1 HR: 85 * : 1945 (M/d/yyyy) Gender: Female Height: 60 in * Age: 72 yrs Ethnicity: [place] Weight: 126 lb * Ordering Physician: Felipe Pruett * Referring Physician: Self, Referred * Performed By: Leatha Khanna RDCS * * Reason For Study: UNEXPLAINED TACHYCARDIA * BSA: 1.5 m2 * -- Conclusions -- * Limited image quality * The left ventricle is hyperdynamic. * The left ventricular cavity is small. * Compared to an echocardiogram from February 2017 and taking into account the difference in technique, there is no definite difference. Procedure Details * A contrast injection of Definity was performed to improve assessment of LV function. * Contrast was injected into an intravenous site in the left arm. * One vial of Definity ultrasound contrast was diluted in normal saline to a total volume of 10 ml. A total of '2' ml of solution was administered during imaging. * Lot # [id number] of Definity utilized for procedure. * Expiration date JAN 23. * The attending nurse who injected the contrast agent was TAMMIE Khoury RN. * Limited image quality Left Ventricle * The left ventricle is grossly normal size. * The left ventricular cavity is small. * Ejection Fraction = >70 %. * The left ventricle is hyperdynamic. * The left ventricular wall motion is normal. Right Ventricle * The right ventricle is not well visualized. Atria * The left atrial size is normal. * Right atrium not well visualized. Mitral Valve * The mitral valve is grossly normal. * Significant mitral regurgitation is absent. Tricuspid Valve * The tricuspid valve is not well visualized. Aortic Valve * The aortic valve is not well visualized. Pulmonic Valve * The pulmonic valve is not well visualized. Great Vessels * The aortic root is normal size. Pericardium/Pleural * There is no pericardial effusion. MMode 2D Measurements and Calculations Ao root diam 3.2 cm Ao root area 8.0 cm\S\2 LVAd ap4 19.4 cm\S\2 LVLd ap4 7.5 cm EDV(MOD-sp4) 42.7 ml EDV(sp4-el) 42.8 ml LVAs ap4 10.9 cm\S\2 LVLs ap4 6.2 cm ESV(MOD-sp4) 16.7 ml ESV(sp4-el) 16.2 ml EF(MOD-sp4) 60.9 % EF(sp4-el) 62.2 % LVAd ap2 20.4 cm\S\2 LVLd ap2 6.7 cm EDV(MOD-sp2) 50.3 ml EDV(sp2-el) 52.5 ml LVAs ap2 12.2 cm\S\2 LVLs ap2 6.0 cm ESV(MOD-sp2) 21.3 ml ESV(sp2-el) 20.9 ml EF(MOD-sp2) 57.6 % EF(sp2-el) 60.3 % LVLd %diff -11.38 % EDV(MOD-bp) 46.5 ml LVLs %diff -2.47 % ESV(MOD-bp) 18.7 ml EF(MOD-bp) 59.8 % SV(MOD-sp4) 26.0 ml SI(MOD-sp4) 16.9 ml/m\S\2 SV(MOD-sp2) 29.0 ml SI(MOD-sp2) 18.9 ml/m\S\2 SV(MOD-bp) 27.8 ml SI(MOD-bp) 18.1 ml/m\S\2 SV(sp4-el) 26.6 ml SI(sp4-el) 17.4 ml/m\S\2 SV(sp2-el) 31.7 ml SI(sp2-el) 20.6 ml/m\S\2 Doppler Measurements and Calculations Ao V2 max 114.6 cm/sec Ao max PG 5.3 mmHg Ao max PG (full) 2.0 mmHg LV V1 max PG 3.3 mmHg LV V1 max 90.6 cm/sec
--- NOTE | 2018-01-14 13:00 | Clinical Documentation Query ---
CLINICAL DOCUMENTATION QUERY Dr. LANGLEY, Encephalopathy had originally been documented in the H/P. It has since been removed from the documentation. Pt with suspected culture negative UTI. In your clinical opinion was/is this patient being managed for: ( ) metabolic encephalopathy ( ) Not Agree ( ) Other explanation of clinical findings (Please Explain) (x ) Unable to determine (Please Define) See notes. Thank you. ( ) Need to Discuss Please clarify and document your clinical opinion in the progress notes and discharge summary. Terms such as "probable", "suspected", "likely", "questionable", "possible", or "still to be ruled out" are acceptable. IF IN AGREEMENT, YOU MUST DOCUMENT ABOVE DIAGNOSTIC STATEMENT IN DAILY PROGRESS NOTES AND DISCHARGE SUMMARY. This document is not part of the patient's record. Thank You, Meche Wolfe RN [phone]
--- NOTE | 2018-01-14 13:13 | Clinical Documentation Query ---
CLINICAL DOCUMENTATION QUERY Dr. KAMINSKI, Encephalopathy had originally been documented in the H/P. It has since been removed from the documentation. Pt with suspected culture negative UTI. In your clinical opinion was/is this patient being managed for: ( x ) metabolic encephalopathy ( ) Not Agree ( ) Other explanation of clinical findings (Please Explain) ( ) Unable to determine (Please Define) ( ) Need to Discuss Please clarify and document your clinical opinion in the progress notes and discharge summary. Terms such as "probable", "suspected", "likely", "questionable", "possible", or "still to be ruled out" are acceptable. IF IN AGREEMENT, YOU MUST DOCUMENT ABOVE DIAGNOSTIC STATEMENT IN DAILY PROGRESS NOTES AND DISCHARGE SUMMARY. This document is not part of the patient's record. Thank You, Meche Wolfe RN [phone]
--- NOTE | 2018-01-14 18:31 | Family Medicine Progress Note ---
Progress Note Date of Service Jan 14, 2018. Subjective Pt evaluation today including: conversation w/ family, physical exam, lab review PO Intake: Diminished but improving Voiding: incontinence Pt sitting upright with supervisor tan room Violet at bedside. More alert than yesterday however continues to easily fall asleep. Additional Comments: Unable to assess 2/2 pts AMS Medications Current Inpatient Medications Medications (Trade) Dose Ordered Sig/Fang Route Start Time Stop Time Status Last Admin Dose Admin Acetaminophen (Tylenol Tab) 650 mg Q4H PRN PO 01/08/18 20:30 02/07/18 20:29 01/13/18 08:44 650 MG Al Hydrox/Mg Hydrox/Simethicone (Maalox Max Susp) 15 ml Q4H PRN PO 01/08/18 20:30 02/07/18 20:29 Magnesium Hydroxide (Milk Of Magnesia Susp) 30 ml Q12H PRN PO 01/08/18 20:30 02/07/18 20:29 Ondansetron HCl (Zofran Inj) 4 mg Q6H PRN IV 01/08/18 20:30 02/07/18 20:29 Nitroglycerin (Nitrostat Tab) 0.4 mg UD PRN SL 01/08/18 20:30 02/07/18 20:29 Polyethylene (Miralax Powder Packet) 17 gm DAILY PRN PO 01/08/18 20:30 02/07/18 20:29 Miscellaneous (Iv Fluids Completed) 1 ea PRN PRN N/A 01/08/18 20:45 01/08/19 20:44 Aspirin (Ecotrin Tab) 81 mg QAM PO 01/09/18 09:00 02/08/18 08:59 01/14/18 08:15 81 MG Buspirone HCl (Buspar Tab) 5 mg BID PRN PO 01/08/18 20:30 02/07/18 20:29 01/14/18 08:14 5 MG Lorazepam (Ativan Tab) 0.5 mg BID PRN PO 01/08/18 20:30 02/07/18 20:29 Memantine (Namenda Tab) 10 mg BID PO 01/08/18 21:00 02/07/18 20:59 01/14/18 08:16 10 MG Olanzapine (Zyprexa Tab) 1.25 mg QAM PO 01/09/18 09:00 02/08/18 08:59 Future Hold 01/11/18 08:39 1.25 MG Olanzapine (Zyprexa Tab) 2.5 mg HS PO 01/08/18 21:00 02/07/18 20:59 Future Hold 01/10/18 21:23 2.5 MG Rivaroxaban (Xarelto Tab) 20 mg QAM PO 01/09/18 09:00 02/08/18 08:59 01/14/18 08:15 20 MG Simvastatin (Zocor Tab) 20 mg QPM PO 01/08/18 21:00 02/07/18 20:59 01/13/18 21:01 20 MG Venlafaxine HCl (effeXOR EXTENDED REL CAP) 37.5 mg QAM PO 01/09/18 09:00 02/08/18 08:59 01/14/18 08:17 37.5 MG Venlafaxine HCl (effeXOR EXTENDED REL CAP) 75 mg QAM PO 01/09/18 09:00 02/08/18 08:59 01/14/18 08:14 75 MG Donepezil HCl (Aricept Tab) 10 mg QAM PO 01/09/18 09:00 02/08/18 08:59 01/14/18 08:14 10 MG Lisinopril (Zestril Tab) 10 mg QAM PO 01/13/18 09:00 02/12/18 08:59 01/14/18 08:15 10 MG Potassium Chloride 40 meq/ Dextrose/Sodium Chloride 1,020 ml @ 50 mls/hr [id number] IV 01/13/18 18:15 02/12/18 18:14 01/14/18 15:33 50 MLS/HR Levothyroxine Sodium (Synthroid Tab) 25 mcg DAILYBB PO 01/15/18 06:30 02/08/18 06:29 Objective Vital Signs Date Time Temp Pulse Resp B/P (MAP) Pulse Ox O2 Delivery O2 Flow Rate FiO2 01/14/18 16:00 Room Air 01/14/18 15:06 37.4 100 16 132/73 (92) 95 Room Air 01/14/18 12:00 95 Room Air 01/14/18 11:58 36.6 99 16 146/85 (105) 95 Room Air 01/14/18 08:00 96 Room Air 01/14/18 07:03 36.6 112 18 159/80 (106) 96 Room Air 01/14/18 04:00 Room Air CPAP 01/14/18 03:49 37.7 119 20 163/97 (119) 93 CPAP 01/14/18 00:00 Room Air CPAP 01/13/18 23:01 36.8 130 18 129/81 (97) 93 Room Air 01/13/18 20:00 Room Air 01/13/18 19:25 37.6 132 16 150/83 (105) 94 Room Air Physical Exam General Appearance: WD/WN, no apparent distress Eyes: PERRL ENT: hearing grossly normal Respiratory/Chest: lungs clear, normal breath sounds, no respiratory distress, no accessory muscle use Cardiovascular: no edema, + systolic murmur Abdomen: non tender, soft Extremities: non-tender, normal inspection, no pedal edema, no calf tenderness Neurologic/Psychiatric: no motor/sensory deficits, + disoriented Skin: normal color Laboratory Results Last Resulted 01/14/18 05:52 Last Resulted 01/14/18 05:52 Assessment and Plan 72 yo female admitted for altered mental status, unknown source. 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 - Leukocytosis improving, recheck procalcitonin of 1. Level was 14 on admission. - possible metabolic encephalopathy or acute delirium but pt mod-severely demented at baseline - UCx-no growth (final). BCx x 2 NGTD. Off Abx. - DCd IVF, likely needs close PO intake monitoring. Tachycardia: -Unclear etiology. Echo with limited views, pt not candidate for JOVAN. Hypertension: - Start lisinopril 10 mg PO daily to provide some improvement. - Needs close PCM f/u once out of hospital to see what her home values are. Urinary incontinence: -Recent symptom. UA and UCx argue against infection, but a UTI would still well -explain her symptoms. Menon removed. -Bowel and bladder incontinence Non-specific T wave abnormality: TnI x 2 negative. No reports of CP. On telemetry, monitoring. Constipation: Resolved with miralax Dementia: -Cont home donepezil 10 daily and memantine 10 bid. - Hold olanzapine for concern of theoretically being related to abnormal vital signs, so will hold the olanzapine for now. - Discussed same with patient's son. Depending on how she responds to holding the olanzapine, there will be some risk/benefit analysis on if it needs to be restarted acutely in the hospital. - Pt sees Dr. Drew as outpatient, will defer management to outpatient Hypothyroidism: TSH here 0.076, On home Synthroid 75 mcg daily. Will decrease dose to 25 mcg Previous medical issues: - Insomnia: On home melatonin. Patient is on a CPAP machine at home. Will also need to watch BiPAP pressures here to help prevent apneic spells. - Depression: On home venlafaxine 75 and buspirone 5 bid prn. Code: Full DVTP: Tc. Dispo: Admit to telemetry. Lives with son at home. Hopeful discharge to rehab tomorrow Resident Tracking Resident Involvement: Resident Care Provided Care Provided: Adult Hospital Medicine Reviewed: Pt Seen/Exam by Me History no new concerns noted to need PT by evaluation supervisor tan room at bedside. needing help with moving to the commode. Constitutional: denies: fever General Appearance: no apparent distress Respiratory: lungs clear, no respiratory distress Cardiovascular: regular rate, rhythm Neurologic/Psychiatric: other (comfortably sleeping) Skin Characteristics: warm/dry Assessment/Plan Resident Physician Supervision Note: I independently interviewed and examined the patient and verified the draper history and physical, reviewed labs and image studies, discussed the case with the resident Dr. Odonnell and agree with the findings and care plan.
[2018-01-14] MEDS: SIMVASTATIN 20 MG TAB PO SCH (21:46)
[2018-01-15] VITALS (7 sets, daily range): BP systolic 125–183; BP diastolic 81–109; PULSE 82–107; TEMP 36.5–37.3; O2SAT 94–97
[2018-01-15] MEDS ORDERED: LSN10 PO (06:24)
[2018-01-15] MEDS ORDERED: LEVOTHYROXINE 25 MCG TAB PO SCH (06:30)
--- NOTE | 2018-01-15 06:35 | Discharge Instructions ---
Discharge Instructions Date of Service Jan 15, 2018. Admission Reason for Admission: Influenza-Like Symptoms, Sepsis Discharge Discharge Diagnosis / Problem: Altered mental status Discharge Goals Goal(s): Decrease discomfort, Improve nutritional status Activity Recommendations Activity Limitations: per Instructions/Follow-up section . Instructions / Follow-Up Instructions / Follow-Up 72 yo female admitted for altered mental status, unknown source. 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 - Leukocytosis improving, recheck procalcitonin of 1. Level was 14 on admission. - possible metabolic encephalopathy or acute delirium but pt mod-severely demented at baseline - UCx-no growth (final). BCx x 2 NGTD. Off Abx. - DCd IVF, likely needs close PO intake monitoring. Tachycardia: -Unclear etiology. Echo with limited views, pt not candidate for JOVAN. Hypertension: - Started lisinopril 10 mg PO daily to provide some improvement. - Recommend close PCP f/u once out of hospital to see what home values are. Urinary incontinence: -Recent symptom. UA and UCx argue against infection, but a UTI would well- explain symptoms. Menon removed. -Bowel and bladder incontinence Non-specific T wave abnormality: TnI x 2 negative. No reports of CP. On telemetry, monitoring. Constipation: Resolved with miralax Dementia: - Continued home donepezil 10 daily and memantine 10 bid. - Held olanzapine for concern of theoretically being related to abnormal vital signs and symptoms, continue to hold olanzapine - Discussed same with patient's son. Depending on how she responds to holding the olanzapine, there may be some risk/benefit analysis on if it needs to be restarted Hypothyroidism: TSH here 0.076, On home Synthroid 75 mcg daily. Decreased dose to 25 mcg while in hospital Previous medical issues: - Insomnia: On home melatonin. Patient is on a CPAP machine at home. - Depression: On home venlafaxine 75 and buspirone 5 bid prn. Code: Full Current Hospital Diet Patient's current hospital diet: Regular Diet Discharge Diet Recommended Diet: Regular Diet Pending Studies Studies pending at discharge: no Medical Emergencies . Who to Call and When: Medical Emergencies: If at any time you feel your situation is an emergency, please call 911 immediately. . Non-Emergent Contact Non-Emergency issues call your: Primary Care Provider . . "Provider Documentation" section prepared by Antoinette Odonnell. .
--- NOTE | 2018-01-15 06:41 | Discharge Summary ---
Discharge Summary Date of Service Jan 15, 2018. Discharge Summary Admission Date: Jan 08, 2018 at 21:01 Discharge Date: Jan 15, 2018 Discharge Disposition: [facility] facility Principal Diagnosis: Altered mental status/Metabolic Encephalopathy Problems/Secondary Diagnoses: Tachycardia Hypertension Urinary incontinence Non-specific T wave abnormality Constipation Dementia Hypothyroidism Insomnia Depression Immunizations: Have You Had Influenza Vaccine: Unknown History of Tetanus Vaccine?: Unknown History of Pneumococcal: Unknown History of Hepatitis B Vaccine: Unknown Medication Reconciliation New Medications: Lisinopril (Zestril) 10 Mg Tab 10 MG PO QAM for 30 Days, #30 TAB Continued Medications: Aspirin Enteric Coated (Ecotrin Or Generic) 81 Mg Tab 81 MG PO QAM Buspirone Hcl (Buspirone Hcl) 5 Mg Tab 5 MG PO BID PRN for Anxiety/Agitation for 30 Days, #60 TAB Cholecalciferol (Vitamin D3) 1,000 Unit Tab 1000 UNITS PO QAM for 90 Days Donepezil Hydrochloride (Donepezil Hcl) 10 Mg Tab 10 MG PO QAM Levothyroxine Sodium (Levothyroxine Sodium) 75 Mcg Tab 75 MCG PO DAILY Lorazepam (Ativan) 0.5 Mg Tab 0.5 MG PO BID PRN for Anxiety/Agitation, TAB Melatonin (Melatonin) 1 Mg Tab 1 MG PO HS Memantine Hcl (Namenda) 10 Mg Tab 10 MG PO BID Rivaroxaban (Xarelto) 20 Mg Tab 20 MG PO QAM Simvastatin (Zocor) 20 Mg Tab 20 MG PO QPM, TAB Venlafaxine Hcl (Effexor Xr) 37.5 Mg Cap 37.5 MG PO QAM for 30 Days, #30 CAP TOTAL DOSE 112.5 MG. Venlafaxine Hcl (Effexor Xr) 75 Mg Cap 75 MG PO QAM for 30 Days, #30 CAP TOTAL DOSE 112.5 MG. Discontinued Medications: Olanzapine (Zyprexa) 2.5 Mg Tab 1.25 MG PO QAM Olanzapine (Zyprexa) 2.5 Mg Tab 2.5 MG PO HS, TAB Discharge Exam Unable to assess ROS due to patient's AMS and baseline mod/severe dementia Physical Exam: General Appearance: WD/WN, no apparent distress Eyes: PERRL ENT: hearing grossly normal Neck: no JVD Respiratory/Chest: lungs clear, normal breath sounds, no respiratory distress Cardiovascular: no edema, + tachycardia, + systolic murmur Abdomen / GI: normal bowel sounds, non tender, soft Extremities: normal inspection, no calf tenderness, normal capillary refill , no pedal edema Neurologic/Psychiatric: + disoriented Skin: normal color Hospital Course 72 yo female admitted for altered mental status, unknown source. 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 - Leukocytosis improving, recheck procalcitonin of 1. Level was 14 on admission. - possible metabolic encephalopathy or acute delirium but pt mod-severely demented at baseline - UCx-no growth (final). BCx x 2 NGTD. Off Abx. - DCd IVF, likely needs close PO intake monitoring. Tachycardia: -Unclear etiology. Echo with limited views, pt not candidate for JOVAN. Hypertension: - Started lisinopril 10 mg PO daily to provide some improvement. - Recommend close PCP f/u once out of hospital to see what home values are. Urinary incontinence: -Recent symptom. UA and UCx argue against infection, but a UTI would well- explain symptoms. [place] removed. -Bowel and bladder incontinence Non-specific T wave abnormality: TnI x 2 negative. No reports of CP. On telemetry, monitoring. Constipation: Resolved with miralax Dementia: - Continued home donepezil 10 daily and memantine 10 bid. - Held olanzapine for concern of theoretically being related to abnormal vital signs and symptoms, continue to hold olanzapine - Discussed same with patient's son. Depending on how she responds to holding the olanzapine, there may be some risk/benefit analysis on if it needs to be restarted - Will defer outpatient management to Dr. Drew, who patient has seen in the past Hypothyroidism: TSH here 0.076, On home Synthroid 75 mcg daily. Decreased dose to 25 mcg while in hospital Previous medical issues: - Insomnia: On home melatonin. Patient is on a CPAP machine at home. - Depression: On home venlafaxine 75 and buspirone 5 bid prn. Code: Full Recommend some lactobacillus supplement considering loose stool in setting of antibiotic use. Total Time Spent: Greater than 30 minutes This includes examination of the patient, discharge planning, medication reconciliation, and communication with other providers. Discharge Instructions Please refer to the electronic Patient Visit Report (Discharge Instructions) for additional information. Additional Copies To Naomi Patterson Resident Tracking Resident Involvement: Resident Care Provided Care Provided: Adult [facility] Reviewed: Pt Seen/Exam by Me History more alert today ate better. 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 Odonnell and agree with the findings and care plan. Time spent in discharge 35 min
[2018-01-15 07:38] LABS: HEMOGLOBIN 12.7 g/dL (12.0-16.0); MEAN CORPUSCULAR HEMOGLOBIN 30.1 pg (25-34); MEAN CORPUSCULAR HGB CONC 33.4 g/dl (32-36); PLATELET COUNT 252 K/uL (130-400); RED CELL DISTRIBUTION WIDTH CV 14.5 % (11.5-14.5); RED CELL DISTRIBUTION WIDTH SD 47.8 fL (36.4-46.3); WHITE BLOOD COUNT 11.06 K/uL (4.8-10.8)
[2018-01-15] MEDS: DONEPEZIL HCL 10 MG TAB PO SCH (07:46)
[2018-01-15] MEDS: VENLAFAXINE HCL XR 75 MG CAPXR PO SCH (07:46)
[2018-01-15] MEDS: VENLAFAXINE HCL XR 37.5 MG CAPXR PO SCH (07:46)
[2018-01-15] MEDS: RIVAROXABAN 10 MG TAB PO SCH (07:47)
[2018-01-15] MEDS: ASPIRIN 81 MG ECTAB PO SCH (07:47)
[2018-01-15] MEDS: LISINOPRIL 10 MG TAB PO SCH (07:48)
[2018-01-15] MEDS: MEMANTINE 10 MG TAB PO SCH (07:48)
[2018-01-20] MEDS ORDERED: RIVA1TAB4 PO (11:54)
== END 2018-01-15 15:30 | DRG 689 ==
LOC: EDBD 14:34 → C.EDC 14:35 → ENRESERV 20:51 → C.MED 21:01
PROVIDERS: ADMIT Hospitalist; ATTEND Family Medicine
DX: N39.0 Urinary tract infection, site not specified (principal); G93.41 Metabolic encephalopathy; E86.0 Dehydration; R00.0 Tachycardia, unspecified; R94.31 Abnormal electrocardiogram [ECG] [EKG]; R53.83 Other fatigue; R53.81 Other malaise; R32 Unspecified urinary incontinence; R15.9 Full incontinence of feces; K59.00 Constipation, unspecified; I10 Essential (primary) hypertension; E07.81 Sick-euthyroid syndrome; E03.9 Hypothyroidism, unspecified; G47.00 Insomnia, unspecified; F32.9 Major depressive disorder, single episode, unspecified; F03.90 Unspecified dementia, unspecified severity, without behavioral disturbance, psychotic disturbance, mood disturbance, and anxiety; Z91.81 History of falling; Z86.718 Personal history of other venous thrombosis and embolism; Z86.711 Personal history of pulmonary embolism; Z87.891 Personal history of nicotine dependence; Z79.01 Long term (current) use of anticoagulants; Z79.82 Long term (current) use of aspirin; Z79.899 Other long term (current) drug therapy

== ENCOUNTER 2018-01-20 12:38 | Inpatient (IN) | payer OTHER, BC ==
[~2018-01-20] VITALS: Ht 152.4 cm; Wt 53.1 kg
[~2018-01-20 12:38] MED LIST changes: +LSN10 PO; -OLAN-80 PO; +RIVA1TAB4 PO
[2018-01-20] MEDS ORDERED: LEVO75TA5 PO (12:42)
[2018-01-20] MEDS ORDERED: DONE1TAB26 PO (12:42)
[2018-01-20] MEDS ORDERED: CHOL1000 PO (12:42)
[2018-01-20] MEDS ORDERED: SODIUM CHLORIDE 0.9% 1000ML 1,000 ML IV ONE (13:20)
[2018-01-20] MEDS ORDERED: OPTIRAY 320 IV PRN (13:30)
[2018-01-20 13:31] LABS: BASO % 0.1 %; BASO ABS # 0.02 K/uL (0-0.2); EOS % 0.3 %; EOS ABS # 0.07 K/uL (0-0.5); HEMATOCRIT 35.6 % (37-47); HEMOGLOBIN 11.7 g/dL (12.0-16.0); IG# 0.09 K/uL (0.00-0.02); LYMPH % 9.4 %; MEAN CELL VOLUME 90.6 fL (80-100); MEAN CORPUSCULAR HEMOGLOBIN 29.8 pg (25-34); MEAN CORPUSCULAR HGB CONC 32.9 g/dl (32-36); MEAN PLATELET VOLUME 10.7 fL (7.4-10.4); MONO % 7.3 %; MONO ABS # 1.71 K/uL (0.11-0.59); NEUT % 82.5 %; NEUT ABS # 19.29 K/uL (1.4-6.5); PLATELET COUNT 366 K/uL (130-400); RED CELL DISTRIBUTION WIDTH CV 14.1 % (11.5-14.5); RED CELL DISTRIBUTION WIDTH SD 46.9 fL (36.4-46.3); WHITE BLOOD COUNT 23.38 K/uL (4.8-10.8)
[2018-01-20 13:40] LABS: ALBUMIN 2.6 gm/dl (3.4-5.0); BLOOD UREA NITROGEN 16 mg/dl (7-18); CALCIUM 9.2 mg/dl (8.5-10.1); CARBON DIOXIDE 25 mmol/L (21-32); CREATININE 0.82 mg/dl (0.60-1.20); GLUCOSE 98 mg/dl (70-99); POTASSIUM 3.5 mmol/L (3.5-5.1); SODIUM 139 mmol/L (136-145)
[2018-01-20 13:44] LABS: INR 1.3 (0.9-1.1)
[2018-01-20 13:48] LABS: PTT PATIENT 45.2 SECONDS (21.0-31.0)
[2018-01-20 13:49] LABS: ALKALINE PHOSPHATASE 140 U/L (45-117); ALT/SGPT 27 U/L (12-78); AST/SGOT 13 U/L (15-37); CKMB < 0.5 ng/ml (0.5-3.6); TOTAL PROTEIN 6.7 gm/dl (6.4-8.2)
--- NOTE | 2018-01-20 13:59 | DIAGNOSTIC IMAGING REPORT ---
CHEST ONE VIEW PORTABLE CLINICAL HISTORY: 72 years-old Female presenting with Sepsis. TECHNIQUE: Portable upright AP view of the chest was obtained. COMPARISON: 01/08/2018. FINDINGS: Atherosclerosis of the aortic arch. Cardiac silhouette normal in size. No focal opacity. No large effusion or pneumothorax. Osseous structures normal. Surgical clip or biopsy clip projects over the right breast. IMPRESSION: 1. No acute cardiopulmonary disease. Electronically signed by: Rodríguez Jose M.D. 01/20/2018 1:57 PM Dictated Date/Time: 01/20/2018 1:57 PM
--- NOTE | 2018-01-20 15:01 | DIAGNOSTIC IMAGING REPORT ---
ABD/PELVIS IV CONTRAST ONLY CLINICAL HISTORY: 72 years-old Female presenting with Pt c/o abd pain, diffuse abdominal pain, elevated white blood cell count. TECHNIQUE: Multidetector CT of the abdomen and pelvis was performed after the administration of intravenous contrast. IV contrast: 94 mL of Optiray 320. A dose lowering technique was used consistent with the principles of ALARA (as low as reasonably achievable). COMPARISON: 01/08/2018. CT DOSE (mGy.cm): The estimated cumulative dose is 344.46 mGy.cm. FINDINGS: Textile Screen Maker topogram: Unremarkable. Lung bases: Dependent consolidation at the bilateral lower lobes. Motion artifact degrades evaluation of the lung bases. Normal heart size. No pericardial or pleural effusion. Liver: Normal morphology. Redemonstration of several lobular hypodense lesions in the right hepatic lobe. There is suggestion of peripheral nodular enhancement though characterization of these lesions is incomplete. Patent hepatic vasculature. Biliary: No intrahepatic or extrahepatic biliary ductal dilatation. Gallbladder contains gallstones. Pancreas: Mild parenchymal atrophy. Spleen: Normal. Adrenal glands: Normal. Kidneys and ureters: Normal. No hydronephrosis. Bilateral extrarenal pelvises. Bladder: Normal. Small focus of gas within the urinary bladder may relate to recent catheterization. Pelvic organs: Uterus surgically absent. Bowel: Severe diverticulosis of the sigmoid colon with less extensive diverticulosis in the descending colon. There is significant sigmoid wall thickening and pericolonic fat infiltration primarily along the proximal sigmoid colon. No adjacent extraluminal foci of gas or a well defined fluid collection. Inflammation abuts the anterior dome of the bladder. Moderate stool burden in the right colon. The appendix is normal. No bowel obstruction. Duodenal diverticulum noted at the level of the pancreatic head. Peritoneal cavity: No free fluid or intraperitoneal gas. Lymph nodes: No enlarged lymph nodes in the abdomen or pelvis. Vasculature: Atherosclerosis of the normal caliber abdominal aorta. IVC patent. Abdominal wall: Normal. Musculoskeletal: Degenerative change of the spine. Post traumatic changes of the right inferior pubic ramus. Osteopenia. IMPRESSION: 1. Findings consistent with acute uncomplicated diverticulitis of the proximal sigmoid colon. This is superimposed on severe diverticulosis with chronic diverticular disease/circular muscle hyperplasia. This should be followed to resolution. 2. Redemonstration of several indeterminate lobular liver lesions, which may represent benign hemangiomas. If there is a clinical history of malignancy or hepatocellular disease, further confirmation of their benignity could be considered. 3. Extensive bibasilar atelectasis. Electronically signed by: Rodríguez Jose M.D. 01/20/2018 3:00 PM Dictated Date/Time: 01/20/2018 2:51 PM
[2018-01-20] MEDS ORDERED: CIPROFLOXACIN 400MG / 200ML D5W IV STA (15:05)
[2018-01-20] MEDS ORDERED: METRONIDAZOLE 500MG / 100ML NSS IV STA (15:05)
[2018-01-20] MEDS ORDERED: SIMV20TA2 PO (15:06)
[2018-01-20] MEDS ORDERED: ASPI-319 PO (15:06)
[2018-01-20] MEDS ORDERED: MEMA10TA PO (15:06)
--- NOTE | 2018-01-20 15:42 | EMERGENCY ROOM VISIT NOTE ---
History Report prepared by Sj: Carlos Mills Under the Supervision of: Dr. Alex Murguia M.D. First contact with patient: 13:08 Chief Complaint: ILLNESS Stated Complaint: ELEVATED WBC History of Present Illness The patient is a 72 year old female who presents to the Emergency Room with concerns over a fever and worsening tiredness that was first noticed this morning. The patient's daughter and caregiver were present at bedside and note that the patient had a fever of 99.5 degrees this morning with a pulse of 103. The patient's daughter notes that the patient was up and moving around yesterday , but has seemed very tired today. The patient resides at [facility], and was recently admitted to the hospital for Sepsis. She has had diffuse amounts of diarrhea over the past weekend. The diarrhea was at its worst yesterday. The caregiver added that she was complaining of diffuse abdominal tenderness to palpation earlier today, but is not currently. Source of History: patient, family, caregiver Onset: This morning Position: abdomen (abdominal tenderness earlier, not currently) Quality: other (Tiredness) Timing: worsening Associated Symptoms: + fevers, + diarrhea Review of Systems See HPI for pertinent positives & negatives. A total of 10 systems reviewed and were otherwise negative. Past Medical & Surgical Medical Problems: (1) Dementia (2) DVT (deep venous thrombosis) (3) Hypertension (4) Pulmonary embolism (5) Thyroid disease Surgical Problems: (1) H/O: hysterectomy (2) Hx of hysterectomy Family History Cancer Heart disease Hypertension Social History Smoking Status: Never Smoker Alcohol Use: none Drug Use: none Marital Status: single Housing Status: lives alone Occupation Status: retired Current/Historical Medications Scheduled Aspirin Enteric Coated (Ecotrin Or Generic), 81 MG PO QAM Cholecalciferol (Vitamin D3), 1,000 UNITS PO QAM Donepezil Hydrochloride (Donepezil Hcl), 10 MG PO QAM Levothyroxine Sodium (Levothyroxine Sodium), 75 MCG PO DAILY Lisinopril (Zestril), 10 MG PO QAM Melatonin (Melatonin), 1 MG PO HS Memantine Hcl (Namenda), 10 MG PO BID Rivaroxaban (Xarelto), 20 MG PO QAM Simvastatin (Zocor), 20 MG PO QPM Venlafaxine Hcl (Effexor Xr), 37.5 MG PO QAM Venlafaxine Hcl (Effexor Xr), 75 MG PO QAM Scheduled PRN Buspirone Hcl (Buspirone Hcl), 5 MG PO BID PRN for Anxiety/Agitation Lorazepam (Ativan), 0.5 MG PO BID PRN for Anxiety/Agitation Allergies Coded Allergies: No Known Allergies (Verified , 01/07/18) Physical Exam Vital Signs Date Time Temp Pulse Resp B/P (MAP) Pulse Ox O2 Delivery O2 Flow Rate FiO2 01/20/18 15:01 36.7 18 133/76 96 Room Air 01/20/18 14:58 137/81 01/20/18 13:38 100 16 94 01/20/18 13:33 95 Room Air 01/20/18 12:50 93 01/20/18 12:46 36.9 89 20 116/73 94 Room Air 01/20/18 12:43 116/73 01/20/18 12:41 94 Room Air Physical Exam GENERAL: Awake, alert, well-appearing, in no acute distress HENT: Normocephalic, atraumatic. Oropharynx unremarkable. EYES: Normal conjunctiva. Sclera non-icteric. NECK: Supple. No nuchal rigidity. FROM. No JVD. RESPIRATORY: Clear to auscultation. CARDIAC: Regular rate, normal rhythm. Extremities warm and well perfused. Pulses equal. ABDOMEN: Soft, non-distended. No tenderness to palpation. No rebound or guarding. No masses. RECTAL: Deferred. MUSCULOSKELETAL: Chest examination reveals no tenderness. The back is symmetrical on inspection without obvious abnormality. There is no CVA tenderness to palpation. No joint edema. LOWER EXTREMITIES: Calves are equal size bilaterally and non-tender. No edema. No discoloration. NEURO: Normal sensorium. No sensory or motor deficits noted. SKIN: No rash or jaundice noted. Medical Decision & Procedures ER Provider Diagnostic Interpretation: Radiology results as stated below per my review and radiologist interpretation: ABD/PELVIS IV CONTRAST ONLY CLINICAL HISTORY: 72 years-old Female presenting with Pt c/o abd pain, diffuse abdominal pain, elevated white blood cell count. TECHNIQUE: Multidetector CT of the abdomen and pelvis was performed after the administration of intravenous contrast. IV contrast: 94 mL of Optiray 320. A dose lowering technique was used consistent with the principles of ALARA (as low as reasonably achievable). COMPARISON: 01/08/2018. CT DOSE (mGy.cm): The estimated cumulative dose is 344.46 mGy.cm. FINDINGS: Fire Sprinkler Fitter topogram: Unremarkable. Lung bases: Dependent consolidation at the bilateral lower lobes. Motion artifact degrades evaluation of the lung bases. Normal heart size. No pericardial or pleural effusion. Liver: Normal morphology. Redemonstration of several lobular hypodense lesions in the right hepatic lobe. There is suggestion of peripheral nodular enhancement though characterization of these lesions is incomplete. Patent hepatic vasculature. Biliary: No intrahepatic or extrahepatic biliary ductal dilatation. Gallbladder contains gallstones. Pancreas: Mild parenchymal atrophy. Spleen: Normal. Adrenal glands: Normal. Kidneys and ureters: Normal. No hydronephrosis. Bilateral extrarenal pelvises. Bladder: Normal. Small focus of gas within the urinary bladder may relate to recent catheterization. Pelvic organs: Uterus surgically absent. Bowel: Severe diverticulosis of the sigmoid colon with less extensive diverticulosis in the descending colon. There is significant sigmoid wall thickening and pericolonic fat infiltration primarily along the proximal sigmoid colon. No adjacent extraluminal foci of gas or a well defined fluid collection. Inflammation abuts the anterior dome of the bladder. Moderate stool burden in the right colon. The appendix is normal. No bowel obstruction. Duodenal diverticulum noted at the level of the pancreatic head. Peritoneal cavity: No free fluid or intraperitoneal gas. Lymph nodes: No enlarged lymph nodes in the abdomen or pelvis. Vasculature: Atherosclerosis of the normal caliber abdominal aorta. IVC patent. Abdominal wall: Normal. Musculoskeletal: Degenerative change of the spine. Post traumatic changes of the right inferior pubic ramus. Osteopenia. IMPRESSION: 1. Findings consistent with acute uncomplicated diverticulitis of the proximal sigmoid colon. This is superimposed on severe diverticulosis with chronic diverticular disease/circular muscle hyperplasia. This should be followed to resolution. 2. Redemonstration of several indeterminate lobular liver lesions, which may represent benign hemangiomas. If there is a clinical history of malignancy or hepatocellular disease, further confirmation of their benignity could be considered. 3. Extensive bibasilar atelectasis. Electronically signed by: Rodríguez Jose M.D. 01/20/2018 3:00 PM Dictated Date/Time: 01/20/2018 2:51 PM CHEST ONE VIEW PORTABLE CLINICAL HISTORY: 72 years-old Female presenting with Sepsis. TECHNIQUE: Portable upright AP view of the chest was obtained. COMPARISON: 01/08/2018. FINDINGS: Atherosclerosis of the aortic arch. Cardiac silhouette normal in size. No focal opacity. No large effusion or pneumothorax. Osseous structures normal. Surgical clip or biopsy clip projects over the right breast. IMPRESSION: 1. No acute cardiopulmonary disease. Electronically signed by: Rodríguez Jose M.D. 01/20/2018 1:57 PM Dictated Date/Time: 01/20/2018 1:57 PM Laboratory Results 01/20/18 12:50 Red Blood Count 3.93, Mean Corpuscular Volume 90.6, Mean Corpuscular Hemoglobin 29.8, Mean Corpuscular Hemoglobin Concent 32.9, Mean Platelet Volume 10.7, Neutrophils (%) (Auto) 82.5, Lymphocytes (%) (Auto) 9.4, Monocytes (%) (Auto) 7.3, Eosinophils (%) (Auto) 0.3, Basophils (%) (Auto) 0.1, Neutrophils # (Auto) 19.29, Lymphocytes # (Auto) 2.20, Monocytes # (Auto) 1.71, Eosinophils # (Auto) 0.07, Basophils # (Auto) 0.02 01/20/18 12:50 Test 01/20/18 12:50 01/20/18 13:58 White Blood Count 23.38 K/uL (4.8-10.8) Red Blood Count 3.93 M/uL (4.2-5.4) Hemoglobin 11.7 g/dL (12.0-16.0) Hematocrit 35.6 % (37-47) Mean Corpuscular Volume 90.6 fL (80-100) Mean Corpuscular Hemoglobin 29.8 pg (25-34) Mean Corpuscular Hemoglobin Concent 32.9 g/dl (32-36) Platelet Count 366 K/uL (130-400) Mean Platelet Volume 10.7 fL (7.4-10.4) Neutrophils (%) (Auto) 82.5 % Lymphocytes (%) (Auto) 9.4 % Monocytes (%) (Auto) 7.3 % Eosinophils (%) (Auto) 0.3 % Basophils (%) (Auto) 0.1 % Neutrophils # (Auto) 19.29 K/uL (1.4-6.5) Lymphocytes # (Auto) 2.20 K/uL (1.2-3.4) Monocytes # (Auto) 1.71 K/uL (0.11-0.59) Eosinophils # (Auto) 0.07 K/uL (0-0.5) Basophils # (Auto) 0.02 K/uL (0-0.2) RDW Standard Deviation 46.9 fL (36.4-46.3) RDW Coefficient of Variation 14.1 % (11.5-14.5) Immature Granulocyte % (Auto) 0.4 % Immature Granulocyte # (Auto) 0.09 K/uL (0.00-0.02) Prothrombin Time 13.4 SECONDS (9.0-12.0) Prothromb Time International Ratio 1.3 (0.9-1.1) Activated Partial Thromboplast Time 45.2 SECONDS (21.0-31.0) Partial Thromboplastin Ratio 1.7 Anion Gap 7.0 mmol/L (3-11) Est Creatinine Clear Calc Drug Dose 49.6 ml/min Estimated GFR () 83.4 Estimated GFR (Non- 72.0 BUN/Creatinine Ratio 19.1 (10-20) Calcium Level 9.2 mg/dl (8.5-10.1) Total Bilirubin 0.3 mg/dl (0.2-1) Aspartate Amino Transf (AST/SGOT) 13 U/L (15-37) Alanine Aminotransferase (ALT/SGPT) 27 U/L (12-78) Alkaline Phosphatase 140 U/L (45-117) Total Creatine Kinase 23 U/L (26-192) Creatine Kinase MB < 0.5 ng/ml (0.5-3.6) Creatine Kinase MB Ratio (0-3.0) Troponin I < 0.015 ng/ml (0-0.045) Total Protein 6.7 gm/dl (6.4-8.2) Albumin 2.6 gm/dl (3.4-5.0) Globulin 4.1 gm/dl (2.5-4.0) Albumin/Globulin Ratio 0.6 (0.9-2) Procalcitonin 0.20 ng/ml (0-0.5) Bedside Lactic Acid Venous 0.55 mmol/L (0.90-1.70) Labs reviewed by ED physician. Medications Administered Medications (Trade) Dose Ordered Sig/Fang Route Start Time Stop Time Status Last Admin Dose Admin Sodium Chloride 1,000 ml @ 999 mls/hr Q1H1M ONCE IV 01/20/18 13:20 01/20/18 14:20 DC 01/20/18 14:04 999 MLS/HR Ciprofloxacin/ Dextrose (Cipro / D5W) 400 mg NOW STAT IV 01/20/18 15:05 01/20/18 15:07 DC 01/20/18 15:44 400 MG ECG Per My Interpretation Indication: weakness Rate (beats per minute): 94 Rhythm: normal sinus Findings: other (no MITCHEL/STD, normal Lehr) ED Course 1315: Past medical records reviewed. The patient was evaluated in room B11B. A complete history and physical examination was performed. 1320: Ordered Sodium Chloride 1000 mL @ 999 mL/hr IV 1504: I discussed the case with Dr. Antonia Pendleton [facility] Hospitalist. She will evaluate the patient for further treatment. 1505: Ordered Metronidazole 500 mg IV, Ciprofloxacin 400 mg IV. Medical Decision Differential diagnosis: Etiologies such as metabolic, infection, hypo/hyperglycemia, electrolyte abnormalities, cardiac sources, intracerebral event, toxicologic, neurologic, as well as others were entertained. This is a 72-year-old female who presents the emergency department complaining of nominal pain in addition patient has a very large white blood cell count. These reason she was sent for CAT scan of the abdomen pelvis. This was concerning for a large amount of diverticulitis. For these reasons the patient was started on normal saline bolus as well as Cipro and Flagyl. I did discuss the patient with the hospitalist service as well as the family who are in agreement with the treatment plan. Medication Reconcilliation Current Medication List: was personally reviewed by me Blood Pressure Screening Patient's blood pressure: Normal blood pressure Consults Time Called: 1500 Consulting Physician: [facility]end[facility] Returned Call: 1504 I discussed the case with Dr. Antonia Pendleton [facility]. She will evaluate the patient for further treatment. Impression Primary Impression: Diverticulitis Scribe Attestation The scribe's documentation has been prepared under my direction and personally reviewed by me in its entirety. I confirm that the note above accurately reflects all work, treatment, procedures, and medical decision making performed by me. Departure Information Dispostion Being Evaluated By Hospitalist Referrals Naomi Patterson (PCP) Patient Instructions My [facility]
[2018-01-20 15:50] VITALS: BP 138/90; PULSE 103; TEMP 36.7; BMI 22.9
[2018-01-20] MEDS ORDERED: LORAZEPAM 0.5 MG TAB PO PRN (16:00)
[2018-01-20] MEDS ORDERED: MAGNESIUM HYDROXIDE SUSP 30 ML UDC PO PRN (16:00)
[2018-01-20] MEDS ORDERED: ACETAMINOPHEN 325 MG TAB PO PRN (16:00)
[2018-01-20] MEDS ORDERED: ONDANSETRON INJ 2 MG/ML 2 ML VIAL IV PRN (16:00)
--- NOTE | 2018-01-20 16:08 | History and Physical ---
History & Physical Date & Time of Service: Jan 20, 2018 at 15:58 Chief Complaint: Elevated Wbc Primary Care Physician: Naomi Patterson History of Present Illness Source: patient, family 72 y/o F who was sent here by Arabella Ospina for concerns regarding fever and abd pain. Pt was d/c'd from [facility] to on 01/08 after an admission for metabolic encephalopathy possibly due to cx neg UTI. During that admission, pt had a CT AP that showed advanced diverticulosis but no diverticulitis. Daughter states that pt has never had diverticulitis that she is aware of. Pt was noted to have multiple episodes of diarrhea on Saturday and 1 yesterday. Daughter was with her yesterday morning for several hours and apparently pt was having mild abd pain, but nothing specific. She was told that pt ate a good breakfast. Pt had a bowel movement yesterday and felt that her abd pain was better. Daughter states that pt had been doing well s/p d/c from [facility] until Saturday when she developed diarrhea. Pt is limited by severe dementia and can tell me that "I have pain in my guts" but cannot further qualify it or tell me about her sx leading up to this. Pt denies fever, SOB, chest pain, n/v/c/d, LE pain or swelling at present but cannot tell me if she had these issues prior. Daughter states that she, her brother, or her brother's fiancee will be staying with the pt overnight. Past Medical/Surgical History Medical Problems: (1) Back strain (2) Dehydration (3) Dementia (4) Dementia (5) DVT (deep venous thrombosis) (6) Fall (7) Fever (8) Head trauma (9) Hypertension (10) Influenza-like symptoms (11) Multiple contusions (12) Pulmonary embolism (13) Sepsis (14) Slurred speech (15) Status post fall (16) Thyroid disease Surgical Problems: (1) H/O: hysterectomy (2) Hx of hysterectomy Depression Insomnia Family History Family history was reviewed; no changes noted. Other family members with diverticulitis Social History Smoking Status: Former Smoker (quit in the 1980s) Alcohol Use: none Drug Use: none Marital Status: single Occupational Status: retired Immunizations History of Influenza Vaccine: Unknown History of Tetanus Vaccine?: Unknown History of Pneumococcal: Unknown History of Hepatitis B Vaccine: Unknown Allergies Coded Allergies: No Known Allergies (Verified , 01/07/18) Home Medications Scheduled Aspirin Enteric Coated (Ecotrin Or Generic), 81 MG PO QAM Cholecalciferol (Vitamin D3), 1,000 UNITS PO QAM Donepezil Hydrochloride (Donepezil Hcl), 10 MG PO QAM Levothyroxine Sodium (Levothyroxine Sodium), 75 MCG PO DAILY Lisinopril (Zestril), 10 MG PO QAM Melatonin (Melatonin), 1 MG PO HS Memantine Hcl (Namenda), 10 MG PO BID Rivaroxaban (Xarelto), 20 MG PO QAM Simvastatin (Zocor), 20 MG PO QPM Venlafaxine Hcl (Effexor Xr), 37.5 MG PO QAM Venlafaxine Hcl (Effexor Xr), 75 MG PO QAM Scheduled PRN Buspirone Hcl (Buspirone Hcl), 5 MG PO BID PRN for Anxiety/Agitation Lorazepam (Ativan), 0.5 MG PO BID PRN for Anxiety/Agitation Review of Systems Pertinent positives and negatives reviewed in HPI--all others negative, however uncertain how reliable this is given dementia Physical Exam Vital Signs Date Time Temp Pulse Resp B/P (MAP) Pulse Ox O2 Delivery O2 Flow Rate FiO2 01/20/18 15:01 36.7 18 133/76 96 Room Air 01/20/18 14:58 137/81 01/20/18 13:38 100 16 94 01/20/18 13:33 95 Room Air 01/20/18 12:50 93 01/20/18 12:46 36.9 89 20 116/73 94 Room Air 01/20/18 12:43 116/73 01/20/18 12:41 94 Room Air General Appearance: WD/WN, no apparent distress Head: normocephalic, atraumatic Eyes: normal inspection, sclerae normal Respiratory/Chest: normal breath sounds, no respiratory distress Cardiovascular: regular rate, rhythm, no edema Abdomen/GI: soft, + tenderness (diffuse to minimal palpation) Extremities/Musculoskelatal: no calf tenderness, no pedal edema Neurologic/Psych: alert, + pertinent finding (answers some questions but not others, does better with yes/no questions) Skin: normal color, warm/dry Diagnostics Laboratory Results Results Past 24 Hours Test 01/20/18 12:50 01/20/18 13:58 Range/Units White Blood Count 23.38 4.8-10.8 K/uL Red Blood Count 3.93 4.2-5.4 M/uL Hemoglobin 11.7 12.0-16.0 g/dL Hematocrit 35.6 37-47 % Mean Corpuscular Volume 90.6 80-100 fL Mean Corpuscular Hemoglobin 29.8 25-34 pg Mean Corpuscular Hemoglobin Concent 32.9 32-36 g/dl Platelet Count 366 130-400 K/uL Mean Platelet Volume 10.7 7.4-10.4 fL Neutrophils (%) (Auto) 82.5 % Lymphocytes (%) (Auto) 9.4 % Monocytes (%) (Auto) 7.3 % Eosinophils (%) (Auto) 0.3 % Basophils (%) (Auto) 0.1 % Neutrophils # (Auto) 19.29 1.4-6.5 K/uL Lymphocytes # (Auto) 2.20 1.2-3.4 K/uL Monocytes # (Auto) 1.71 0.11-0.59 K/uL Eosinophils # (Auto) 0.07 0-0.5 K/uL Basophils # (Auto) 0.02 0-0.2 K/uL RDW Standard Deviation 46.9 36.4-46.3 fL RDW Coefficient of Variation 14.1 11.5-14.5 % Immature Granulocyte % (Auto) 0.4 % Immature Granulocyte # (Auto) 0.09 0.00-0.02 K/uL Prothrombin Time 13.4 9.0-12.0 SECONDS Prothromb Time International Ratio 1.3 0.9-1.1 Activated Partial Thromboplast Time 45.2 21.0-31.0 SECONDS Partial Thromboplastin Ratio 1.7 Sodium Level 139 136-145 mmol/L Potassium Level 3.5 3.5-5.1 mmol/L Chloride Level 107 98-107 mmol/L Carbon Dioxide Level 25 21-32 mmol/L Anion Gap 7.0 3-11 mmol/L Blood Urea Nitrogen 16 7-18 mg/dl Creatinine 0.82 0.60-1.20 mg/dl Est Creatinine Clear Calc Drug Dose 49.6 ml/min Estimated GFR () 83.4 Estimated GFR (Non- 72.0 BUN/Creatinine Ratio 19.1 10-20 Random Glucose 98 70-99 mg/dl Calcium Level 9.2 8.5-10.1 mg/dl Total Bilirubin 0.3 0.2-1 mg/dl Aspartate Amino Transf (AST/SGOT) 13 15-37 U/L Alanine Aminotransferase (ALT/SGPT) 27 12-78 U/L Alkaline Phosphatase 140 45-117 U/L Total Creatine Kinase 23 26-192 U/L Creatine Kinase MB < 0.5 0.5-3.6 ng/ml Creatine Kinase MB Ratio 0-3.0 Troponin I < 0.015 0-0.045 ng/ml Total Protein 6.7 6.4-8.2 gm/dl Albumin 2.6 3.4-5.0 gm/dl Globulin 4.1 2.5-4.0 gm/dl Albumin/Globulin Ratio 0.6 0.9-2 Procalcitonin 0.20 0-0.5 ng/ml Bedside Lactic Acid Venous 0.55 0.90-1.70 mmol/L Microbiology Results 01/20/18 Blood Culture, Received Pending 01/20/18 Blood Culture, Received Pending Diagnostic Radiology CXR neg for acute CT AP 1. Findings consistent with acute uncomplicated diverticulitis of the proximal sigmoid colon. This is superimposed on severe diverticulosis with chronic diverticular disease/circular muscle hyperplasia. This should be followed to resolution. 2. Redemonstration of several indeterminate lobular liver lesions, which may represent benign hemangiomas. If there is a clinical history of malignancy or hepatocellular disease, further confirmation of their benignity could be considered. 3. Extensive bibasilar atelectasis. Impression Assessment and Plan 72 y/o F who was admitted on 01/20 for acute diverticulitis Diverticulitis: as noted on CT AP CT AP on 01/08/18 was neg this,however both show advanced diverticulosis Cipro/flagyl, clears, IVF Neg for abscess WBC elevated, monitor Blood cx pending IVF with K given K is 3.5 today Advanced dementia: meds as prior Family states they will alert nursing if there will not be a family member staying with pt overnight If no family staying, pt will need a one to one most likely HTN: stable, continue home meds DVT/PE: noted 05/2017 Continue xarelto Other: full code, daughter states to continue with this plan Xarelto for DVT proph Clears for now, can advance as pain improves CM alert, pt was a new admission to [facility] on 01/08/18 and will most likely need to return there on d/c Resuscitation Status VTE Prophylaxis Will order VTE Prophylaxis: Yes
[2018-01-20] MEDS: POTASSIUM CHLORIDE INJ 40 MEQ in SODIUM CHLORIDE 0.9% 1000ML 1,000 ML IV SCH (18:27)
[2018-01-20] MEDS: METRONIDAZOLE / NSS 500 MG in PREMIXED NSS 100 ML IV SCH (18:29)
[2018-01-20] MEDS: MEMANTINE 10 MG TAB PO SCH (20:37)
[2018-01-20] MEDS: SIMVASTATIN 20 MG TAB PO SCH (20:37)
[2018-01-20] MEDS ORDERED: NON-FORMULARY MEDICATION (Melatonin 1 MG) PO SCH (21:00)
[2018-01-20] MEDS ORDERED: LORA-741 PO (23:08)
[2018-01-20] MEDS ORDERED: VENL75CA PO (23:08)
[2018-01-20] MEDS ORDERED: VENL1CAP92 PO (23:08)
[2018-01-20] MEDS ORDERED: BUSP5TAB59 PO (23:08)
[2018-01-20] MEDS ORDERED: MELA1TAB4 PO (23:08)
[2018-01-21 00:03] VITALS: BP 130/82; PULSE 94; TEMP 36.9; O2SAT 97
[2018-01-21] MEDS: METRONIDAZOLE / NSS 500 MG in PREMIXED NSS 100 ML IV SCH ×3 (02:30→18:55)
[2018-01-21] MEDS: CIPROFLOXACIN / D5W 400 MG in PREMIXED IN D5W 200 ML IV SCH ×2 (03:36→15:09)
[2018-01-21 05:12] LABS: HEMATOCRIT 33.9 % (37-47); HEMOGLOBIN 11.1 g/dL (12.0-16.0); MEAN CELL VOLUME 90.6 fL (80-100); MEAN CORPUSCULAR HEMOGLOBIN 29.7 pg (25-34); MEAN CORPUSCULAR HGB CONC 32.7 g/dl (32-36); PLATELET COUNT 298 K/uL (130-400); RED CELL DISTRIBUTION WIDTH SD 46.9 fL (36.4-46.3); WHITE BLOOD COUNT 14.61 K/uL (4.8-10.8)
[2018-01-21 05:30] LABS: CALCIUM 8.7 mg/dl (8.5-10.1); CREATININE 0.79 mg/dl (0.60-1.20); POTASSIUM 3.7 mmol/L (3.5-5.1)
[2018-01-21] MEDS: LEVOTHYROXINE 75 MCG TAB PO SCH (06:10)
[2018-01-21 07:12] VITALS: BP 123/78; PULSE 95; TEMP 36.3; O2SAT 98
[2018-01-21] MEDS: DONEPEZIL HCL 10 MG TAB PO SCH (07:41)
[2018-01-21] MEDS: VENLAFAXINE HCL XR 37.5 MG CAPXR PO SCH (07:41)
[2018-01-21] MEDS: ASPIRIN 81 MG ECTAB PO SCH ×2 (07:41→08:00)
[2018-01-21] MEDS: VENLAFAXINE HCL XR 75 MG CAPXR PO SCH (07:42)
[2018-01-21] MEDS: RIVAROXABAN 20 MG TAB PO SCH (07:42)
[2018-01-21] MEDS: CHOLECALCIFEROL 1000 INTER.UNIT TAB PO SCH (07:42)
[2018-01-21] MEDS: MEMANTINE 10 MG TAB PO SCH ×2 (07:43→20:21)
[2018-01-21] MEDS: LISINOPRIL 10 MG TAB PO SCH (07:43)
--- NOTE | 2018-01-21 10:42 | Family Medicine Progress Note ---
Progress Note Date of Service Jan 21, 2018. Subjective Pt evaluation today including: conversation w/ family, physical exam PO Intake: decreased oral intake per piece goods packer Voiding: incontinence Sil is resting comfortably this morning with piece goods packer Violet at bedside. Additional Comments: Patient unable to provide ROS 2/2 baseline severe dementia Medications Current Inpatient Medications Medications (Trade) Dose Ordered Sig/Fang Route Start Time Stop Time Status Last Admin Dose Admin Ioversol (Optiray 320) 100 ml UD PRN IV 01/20/18 13:30 01/24/18 13:29 Acetaminophen (Tylenol Tab) 650 mg Q4H PRN PO 01/20/18 16:00 02/19/18 15:59 Magnesium Hydroxide (Milk Of Magnesia Susp) 30 ml Q6H PRN PO 01/20/18 16:00 02/19/18 15:59 Ondansetron HCl (Zofran Inj) 4 mg Q6H PRN IV 01/20/18 16:00 02/19/18 15:59 Ciprofloxacin/ Dextrose 400 mg/ Prmx 200 ml @ 100 mls/hr Q12H IV 01/21/18 03:00 01/30/18 23:59 01/21/18 03:36 100 MLS/HR Metronidazole 500 mg/Prmx 100 ml @ 100 mls/hr Q8H IV 01/20/18 18:00 01/30/18 15:59 01/21/18 09:32 100 MLS/HR Potassium Chloride 40 meq/ Sodium Chloride 1,020 ml @ 75 mls/hr [id number] IV 01/20/18 17:30 02/19/18 15:59 01/20/18 18:27 75 MLS/HR Aspirin (Ecotrin Tab) 81 mg QAM PO 01/21/18 08:00 02/20/18 08:59 Buspirone HCl (Buspar Tab) 5 mg BID PRN PO 01/20/18 16:00 02/19/18 15:59 Cholecalciferol (Vitamin D Tab) 1,000 inter.unit QAM PO 01/21/18 08:00 02/20/18 08:59 01/21/18 07:42 1,000 INTER.UNIT Levothyroxine Sodium (Synthroid Tab) 75 mcg DAILYBB PO 01/21/18 06:30 5/17/18 06:59 01/21/18 06:10 75 MCG Lisinopril (Zestril Tab) 10 mg QAM PO 01/21/18 08:00 02/20/18 08:59 01/21/18 07:43 10 MG Lorazepam (Ativan Tab) 0.5 mg BID PRN PO 01/20/18 16:00 02/19/18 15:59 Memantine (Namenda Tab) 10 mg BID PO 01/20/18 20:00 02/19/18 20:59 01/21/18 07:43 10 MG Rivaroxaban (Xarelto Tab) 20 mg QAM PO 01/21/18 08:00 02/20/18 08:59 01/21/18 07:42 20 MG Simvastatin (Zocor Tab) 20 mg QPM PO 01/20/18 21:00 02/19/18 20:59 01/20/18 20:37 20 MG Venlafaxine HCl (effeXOR EXTENDED REL CAP) 37.5 mg QAM PO 01/21/18 08:00 02/20/18 08:59 01/21/18 07:41 37.5 MG Venlafaxine HCl (effeXOR EXTENDED REL CAP) 75 mg QAM PO 01/21/18 08:00 02/20/18 08:59 01/21/18 07:42 75 MG Donepezil HCl (Aricept Tab) 10 mg QAM PO 01/21/18 08:00 02/20/18 08:59 01/21/18 07:41 10 MG Objective Vital Signs Date Time Temp Pulse Resp B/P (MAP) Pulse Ox O2 Delivery O2 Flow Rate FiO2 01/21/18 08:00 Room Air 01/21/18 07:12 36.3 95 16 123/78 (93) 98 01/21/18 00:03 36.9 94 20 130/82 (98) 97 Room Air 01/20/18 23:59 Room Air 01/20/18 15:50 36.7 103 20 138/90 Room Air 01/20/18 15:01 36.7 18 133/76 96 Room Air 01/20/18 14:58 137/81 01/20/18 13:38 100 16 94 01/20/18 13:33 95 Room Air 01/20/18 12:50 93 01/20/18 12:46 36.9 89 20 116/73 94 Room Air 01/20/18 12:43 116/73 01/20/18 12:41 94 Room Air Physical Exam General Appearance: WD/WN, no apparent distress Eyes: normal inspection, EOMI ENT: hearing grossly normal Neck: no JVD, no carotid bruits, trachea midline Respiratory/Chest: lungs clear, no respiratory distress, no accessory muscle use, + decreased breath sounds ((poor effort, pt unable to follow command for deeper breaths)) Cardiovascular: regular rate, rhythm, no edema, no murmur Abdomen: normal bowel sounds, soft, no organomegaly, + tenderness Extremities: non-tender, normal inspection, no pedal edema, no calf tenderness Neurologic/Psychiatric: + disoriented (Oriented to self) Skin: normal color, warm/dry Laboratory Results Last Resulted 01/21/18 05:03 Last Resulted 01/21/18 05:03 Past 24 Hours Test 01/20/18 12:50 Range/Units Creatine Kinase MB < 0.5 L 0.5-3.6 ng/ml Creatine Kinase MB Ratio 0-3.0 Prothromb Time International Ratio 1.3 H 0.9-1.1 Prothrombin Time 13.4 H 9.0-12.0 SECONDS Total Creatine Kinase 23 L 26-192 U/L Troponin I < 0.015 0-0.045 ng/ml Assessment and Plan 72 y/o F PMH severe dementia, admitted on 01/20 for acute diverticulitis from [facility] after fever, abdominal pain, diarrhea x 2 days. Recent admission for ? metabolic encephalopathy vs worsening dementia 01/08/18, but had reportedly been doing well after discharge until recent symptoms began. Diverticulitis -noted on CT AP (on 01/08/18 showed only advanced diverticulosis) -Cipro/flagyl, clears, IVF: convert to PO meds tomorrow -WBC elevated, responded well to IVF -Blood cx pending Advanced dementia -Continue home meds -Son concerned about recent stoppage of olanzapine on previous admission and increased dose of effexor; feels she is more agitated since this switch HTN: -stable, continue home meds DVT/PE: noted 05/2017 -Continue xarelto -No documentation in outpatient records to indicate why she continues to take the xarelto vs. stopping after 3 months Code: Full, reiterated by family DVTP: aleks Dispo: med/surg, likely home soon CM: Reports that family state they are unhappy with care at [facility] and would like to return her to at-home care on discharge. Resident Physician Supervision Note: I interviewed and examined the patient. Discussed with Dr. Odonnell and agree with findings and plan as documented in the note. Any exceptions or clarifications are listed here: None Documented By: Bernardo Camilo very little HPI or ROS obtainable, able to eat, doesn't claim belly pain at this time vitals noted nad breathing unlabored no pallor or icterus. mild LLQ TTP no guarding or rebound diverticulitis w sepsis on admission - appears quite unrelated to prior infection as she did not show diverticulitis then. improving. change to PO abx , hopefully back to SNF tomorrow Resident Tracking Resident Involvement: Resident Care Provided Care Provided: Adult Hospital Medicine
[2018-01-21 11:40] VITALS: Ht 152.4 cm; Wt 53.1 kg
[2018-01-21] MEDS: POTASSIUM CHLORIDE INJ 40 MEQ in SODIUM CHLORIDE 0.9% 1000ML 1,000 ML IV SCH (12:22)
[2018-01-21 15:00] VITALS: BP 138/82; PULSE 91; TEMP 36.3; O2SAT 95
[2018-01-21] MEDS: SIMVASTATIN 20 MG TAB PO SCH (20:22)
[2018-01-22 00:15] VITALS: BP 138/88; PULSE 82; TEMP 36.6; O2SAT 97
[2018-01-22] MEDS: POTASSIUM CHLORIDE INJ 40 MEQ in SODIUM CHLORIDE 0.9% 1000ML 1,000 ML IV SCH ×2 (02:13→19:08)
[2018-01-22] MEDS: METRONIDAZOLE / NSS 500 MG in PREMIXED NSS 100 ML IV SCH (02:13)
[2018-01-22 02:30] VITALS: BP 94/57
[2018-01-22] MEDS: CIPROFLOXACIN / D5W 400 MG in PREMIXED IN D5W 200 ML IV SCH (04:09)
[2018-01-22] MEDS: LEVOTHYROXINE 75 MCG TAB PO SCH (06:37)
[2018-01-22 06:44] LABS: HEMATOCRIT 35.3 % (37-47); HEMOGLOBIN 11.7 g/dL (12.0-16.0); MEAN CELL VOLUME 90.5 fL (80-100); MEAN CORPUSCULAR HGB CONC 33.1 g/dl (32-36); MEAN PLATELET VOLUME 10.2 fL (7.4-10.4); PLATELET COUNT 333 K/uL (130-400); RED CELL DISTRIBUTION WIDTH CV 14.1 % (11.5-14.5); RED CELL DISTRIBUTION WIDTH SD 46.8 fL (36.4-46.3); WHITE BLOOD COUNT 9.72 K/uL (4.8-10.8)
[2018-01-22 07:06] VITALS: BP 141/87; PULSE 79; TEMP 36.7; O2SAT 96
[2018-01-22 07:11] LABS: CALCIUM 8.7 mg/dl (8.5-10.1); CREATININE 0.78 mg/dl (0.60-1.20); POTASSIUM 3.5 mmol/L (3.5-5.1)
[2018-01-22] MEDS: ASPIRIN 81 MG ECTAB PO SCH (07:30)
[2018-01-22] MEDS: VENLAFAXINE HCL XR 75 MG CAPXR PO SCH (07:30)
[2018-01-22] MEDS: DONEPEZIL HCL 10 MG TAB PO SCH (07:30)
[2018-01-22] MEDS: MEMANTINE 10 MG TAB PO SCH ×2 (07:31→21:44)
[2018-01-22] MEDS: RIVAROXABAN 20 MG TAB PO SCH (07:31)
[2018-01-22] MEDS: LISINOPRIL 10 MG TAB PO SCH (07:32)
[2018-01-22] MEDS: VENLAFAXINE HCL XR 37.5 MG CAPXR PO SCH (07:33)
[2018-01-22] MEDS: CHOLECALCIFEROL 1000 INTER.UNIT TAB PO SCH (07:37)
[2018-01-22] MEDS: METRONIDAZOLE 500 MG TAB PO SCH ×2 (12:28→21:46)
[2018-01-22 15:50] VITALS: BP 135/81; PULSE 91; TEMP 36.6; O2SAT 99
[2018-01-22 16:00] VITALS: O2SAT 99
--- NOTE | 2018-01-22 20:45 | Family Medicine Progress Note ---
Progress Note Date of Service Jan 22, 2018. Subjective Pt evaluation today including: conversation w/ patient, physical exam Pain: Denies pain PO Intake: Poor oral intake Voiding: incontinence Patient is more alert today, able to interact and answer some questions, however severely demented/disoriented. Additional Comments: Limited to diminished baseline status however denies pain. Does state she doesn' t feel well today. Medications Current Inpatient Medications Medications (Trade) Dose Ordered Sig/Fang Route Start Time Stop Time Status Last Admin Dose Admin Ioversol (Optiray 320) 100 ml UD PRN IV 01/20/18 13:30 01/24/18 13:29 Acetaminophen (Tylenol Tab) 650 mg Q4H PRN PO 01/20/18 16:00 02/19/18 15:59 01/22/18 14:23 650 MG Magnesium Hydroxide (Milk Of Magnesia Susp) 30 ml Q6H PRN PO 01/20/18 16:00 02/19/18 15:59 Ondansetron HCl (Zofran Inj) 4 mg Q6H PRN IV 01/20/18 16:00 02/19/18 15:59 Potassium Chloride 40 meq/ Sodium Chloride 1,020 ml @ 75 mls/hr [id number] IV 01/20/18 17:30 02/19/18 15:59 01/22/18 19:08 75 MLS/HR Aspirin (Ecotrin Tab) 81 mg QAM PO 01/21/18 08:00 02/20/18 08:59 01/22/18 07:30 81 MG Buspirone HCl (Buspar Tab) 5 mg BID PRN PO 01/20/18 16:00 02/19/18 15:59 Cholecalciferol (Vitamin D Tab) 1,000 inter.unit QAM PO 01/21/18 08:00 02/20/18 08:59 01/22/18 07:37 1,000 INTER.UNIT Levothyroxine Sodium (Synthroid Tab) 75 mcg DAILYBB PO 01/21/18 06:30 02/20/18 06:59 01/22/18 06:37 75 MCG Lisinopril (Zestril Tab) 10 mg QAM PO 01/21/18 08:00 02/20/18 08:59 01/22/18 07:32 10 MG Lorazepam (Ativan Tab) 0.5 mg BID PRN PO 01/20/18 16:00 02/19/18 15:59 Memantine (Namenda Tab) 10 mg BID PO 01/20/18 20:00 02/19/18 20:59 01/22/18 07:31 10 MG Rivaroxaban (Xarelto Tab) 20 mg QAM PO 01/21/18 08:00 02/20/18 08:59 01/22/18 07:31 20 MG Simvastatin (Zocor Tab) 20 mg QPM PO 01/20/18 21:00 02/19/18 20:59 01/21/18 20:22 20 MG Venlafaxine HCl (effeXOR EXTENDED REL CAP) 37.5 mg QAM PO 01/21/18 08:00 02/20/18 08:59 01/22/18 07:33 37.5 MG Venlafaxine HCl (effeXOR EXTENDED REL CAP) 75 mg QAM PO 01/21/18 08:00 02/20/18 08:59 01/22/18 07:30 75 MG Donepezil HCl (Aricept Tab) 10 mg QAM PO 01/21/18 08:00 02/20/18 08:59 01/22/18 07:30 10 MG Ciprofloxacin (Cipro Tab) 500 mg BID PO 01/22/18 20:00 01/30/18 19:59 Metronidazole (Flagyl Tab) 500 mg TID PO 01/22/18 14:00 01/30/18 13:59 01/22/18 12:28 500 MG Objective Vital Signs Date Time Temp Pulse Resp B/P (MAP) Pulse Ox O2 Delivery O2 Flow Rate FiO2 01/22/18 16:00 99 Room Air 01/22/18 15:50 36.6 91 16 135/81 (99) 99 01/22/18 08:00 Room Air 01/22/18 07:06 36.7 79 16 141/87 (105) 96 01/22/18 02:30 94/57 (69) 01/22/18 00:15 36.6 82 20 138/88 (105) 97 CPAP 01/22/18 00:00 Room Air Physical Exam General Appearance: WD/WN, no apparent distress Eyes: EOMI ENT: hearing grossly normal Respiratory/Chest: chest non-tender, lungs clear, normal breath sounds, no respiratory distress, no accessory muscle use Cardiovascular: regular rate, rhythm, no edema, no murmur Abdomen: normal bowel sounds, soft, + tenderness (minimal, much improved) Extremities: non-tender, normal inspection, no pedal edema Neurologic/Psychiatric: no motor/sensory deficits, alert, + disoriented Skin: normal color Laboratory Results Last Resulted 01/22/18 06:25 Last Resulted 01/22/18 06:25 Assessment and Plan 72 y/o F PMH severe dementia, admitted on 01/20 for acute diverticulitis from [facility] after fever, abdominal pain, diarrhea x 2 days. Recent admission for ? metabolic encephalopathy vs worsening dementia 01/08/18, but had reportedly been doing well after discharge until recent symptoms began. Diverticulitis -noted on CT AP (on 01/08/18 showed only advanced diverticulosis) -Cipro/flagyl started PO today, tolerating well, advancint diet as tolerated, IVF -WBC nl -Blood cx pending Advanced dementia -Continue home meds -Son concerned about recent stoppage of olanzapine on previous admission and increased dose of effexor; feels she is more agitated since this switch -Recommend continued outpatient follow up -Discussed with apprentice electrician recommendation to follow water intake throughout the day and document in notebook. If <(roughly)60 oz per day, encourage more next day and if <60 for 2-3 days, consider contacting PCP for outpatient IVF HTN: -stable, continue home meds DVT/PE: noted 05/2017 -Continue xarelto, with likely discontinuation on discharge -No documentation in outpatient records to indicate why she continues to take the xarelto vs. stopping after 3 months -No evidence of this being second clot, will need to discuss with family whether she had ever been on blood thinners in past for clots -Medication has been renewed in meantime by primary service; will attempt to also contact Naomi Patterson Code: Full, reiterated by family DVTP: xarelto Dispo: med/surg, likely home tmrw with 24 hour help and home PT/OT Resident Physician Supervision Note: I interviewed and examined the patient. Discussed with Dr. Odonnell and agree with findings and plan as documented in the note. Any exceptions or clarifications are listed here: None Documented By: Bernardo Camilo no meaningful HPI or ROS vitlas noted nad breathing unlabored no pallor or icterus less LLQ tenderness than before diverticulitis, dementia - stable, continue abx, work towards home as is family' s goal Resident Tracking Resident Involvement: Resident Care Provided Care Provided: Adult Hospital Medicine
[2018-01-22] MEDS: CIPROFLOXACIN 500 MG TAB PO SCH (21:44)
[2018-01-22] MEDS: SIMVASTATIN 20 MG TAB PO SCH (21:45)
[2018-01-22 23:50] VITALS: BP 146/91; PULSE 83; TEMP 36.5; O2SAT 95
[2018-01-23] MEDS: LEVOTHYROXINE 75 MCG TAB PO SCH (05:52)
[2018-01-23] MEDS: POTASSIUM CHLORIDE INJ 40 MEQ in SODIUM CHLORIDE 0.9% 1000ML 1,000 ML IV SCH (05:53)
[2018-01-23 07:21] VITALS: BP_SYST 158; BP_SYST 176; BP_DIAS 100; BP_DIAS 104; PULSE 88; TEMP 36.7; O2SAT 98
[2018-01-23] MEDS: DONEPEZIL HCL 10 MG TAB PO SCH (07:44)
[2018-01-23] MEDS: CHOLECALCIFEROL 1000 INTER.UNIT TAB PO SCH (07:44)
[2018-01-23] MEDS: MEMANTINE 10 MG TAB PO SCH (07:45)
[2018-01-23] MEDS: CIPROFLOXACIN 500 MG TAB PO SCH (07:45)
[2018-01-23] MEDS: LISINOPRIL 10 MG TAB PO SCH (07:45)
[2018-01-23] MEDS: VENLAFAXINE HCL XR 37.5 MG CAPXR PO SCH (07:45)
[2018-01-23] MEDS: RIVAROXABAN 20 MG TAB PO SCH (07:45)
[2018-01-23] MEDS: ASPIRIN 81 MG ECTAB PO SCH (07:45)
[2018-01-23] MEDS: VENLAFAXINE HCL XR 75 MG CAPXR PO SCH (07:46)
[2018-01-23] MEDS: METRONIDAZOLE 500 MG TAB PO SCH ×2 (07:46→14:50)
[2018-01-23 08:20] VITALS: O2SAT 98
[2018-01-23] MEDS ORDERED: CPR500 PO (13:37)
[2018-01-23] MEDS ORDERED: MTR500 PO (13:37)
--- NOTE | 2018-01-23 13:43 | Discharge Instructions ---
Discharge Instructions Date of Service Jan 23, 2018. Admission Reason for Admission: Diverticulitis Discharge Discharge Diagnosis / Problem: diverticulitis, resolving Discharge Goals Goal(s): Diagnostic testing, Therapeutic intervention Activity Recommendations Activity Limitations: resume your previous activity . Instructions / Follow-Up Instructions / Follow-Up a) diverticulitis -this is an infection of diverticuli, which are little outpouchings most of us form on the wall of our colon as we age. -we'll just need you to finish out a course of antibiotics (cipro twice a day, metronidazole three times a day) for the next week -follow up with your family physician next week b) hydration -as we discussed, as people age their natural thirst drive fades, and when dementia is added to the mix the person also won't be able to be cognitively aware that they haven't drank much that day. to help keep hydration, we'll want to make sure she gets about 60 ounces of fluid a day -- follow her fluid intake, and write down how many ounces in a day. if she falls short one day, just try extra hard to encourage fluid intake the second day. if she goes two days in a row without being close to goal for fluid intake, then it is time to call her family doctor for further advice (ie coming in to clinically evaluate hydration status, going to the [facility] for outpatient IV fluids, etc) Current Hospital Diet Patient's current hospital diet: Clear Liquid Diet Discharge Diet Recommended Diet: Regular Diet (often times as people recover from diverticulitis, low fiber foods (simple starchy, bready, etc) are easier to digest, but at the same time, this is not universal, so overall it is OK to have her eat what she feels up to eating/what she is in the mood for eating) Pending Studies Studies pending at discharge: no Medical Emergencies . Who to Call and When: Medical Emergencies: If at any time you feel your situation is an emergency, please call 911 immediately. . Non-Emergent Contact Non-Emergency issues call your: Primary Care Provider . . "Provider Documentation" section prepared by Bernardo Camilo. .
[2018-01-23 15:18] VITALS: BP 128/84; PULSE 89; TEMP 36.3; O2SAT 100
--- NOTE | 2018-01-23 18:55 | Discharge Summary ---
Discharge Summary Date of Service Jan 23, 2018. Discharge Summary Admission Date: Jan 20, 2018 at 15:54 Discharge Date: Jan 23, 2018 Discharge Disposition: Home with services Principal Diagnosis: diverticulitis Immunizations: Have You Had Influenza Vaccine: Unknown History of Tetanus Vaccine?: Unknown History of Pneumococcal: Unknown History of Hepatitis B Vaccine: Unknown Procedures: ABD/PELVIS IV CONTRAST ONLY CLINICAL HISTORY: 72 years-old Female presenting with Pt c/o abd pain, diffuse abdominal pain, elevated white blood cell count. TECHNIQUE: Multidetector CT of the abdomen and pelvis was performed after the administration of intravenous contrast. IV contrast: 94 mL of Optiray 320. A dose lowering technique was used consistent with the principles of ALARA (as low as reasonably achievable). COMPARISON: 01/08/2018. CT DOSE (mGy.cm): The estimated cumulative dose is 344.46 mGy.cm. FINDINGS: Rn Registry topogram: Unremarkable. Lung bases: Dependent consolidation at the bilateral lower lobes. Motion artifact degrades evaluation of the lung bases. Normal heart size. No pericardial or pleural effusion. Liver: Normal morphology. Redemonstration of several lobular hypodense lesions in the right hepatic lobe. There is suggestion of peripheral nodular enhancement though characterization of these lesions is incomplete. Patent hepatic vasculature. Biliary: No intrahepatic or extrahepatic biliary ductal dilatation. Gallbladder contains gallstones. Pancreas: Mild parenchymal atrophy. Spleen: Normal. Adrenal glands: Normal. Kidneys and ureters: Normal. No hydronephrosis. Bilateral extrarenal pelvises. Bladder: Normal. Small focus of gas within the urinary bladder may relate to recent catheterization. Pelvic organs: Uterus surgically absent. Bowel: Severe diverticulosis of the sigmoid colon with less extensive diverticulosis in the descending colon. There is significant sigmoid wall thickening and pericolonic fat infiltration primarily along the proximal sigmoid colon. No adjacent extraluminal foci of gas or a well defined fluid collection. Inflammation abuts the anterior dome of the bladder. Moderate stool burden in the right colon. The appendix is normal. No bowel obstruction. Duodenal diverticulum noted at the level of the pancreatic head. Peritoneal cavity: No free fluid or intraperitoneal gas. Lymph nodes: No enlarged lymph nodes in the abdomen or pelvis. Vasculature: Atherosclerosis of the normal caliber abdominal aorta. IVC patent. Abdominal wall: Normal. Musculoskeletal: Degenerative change of the spine. Post traumatic changes of the right inferior pubic ramus. Osteopenia. IMPRESSION: 1. Findings consistent with acute uncomplicated diverticulitis of the proximal sigmoid colon. This is superimposed on severe diverticulosis with chronic diverticular disease/circular muscle hyperplasia. This should be followed to resolution. 2. Redemonstration of several indeterminate lobular liver lesions, which may represent benign hemangiomas. If there is a clinical history of malignancy or hepatocellular disease, further confirmation of their benignity could be considered. 3. Extensive bibasilar atelectasis. Electronically signed by: Rodríguez Jose M.D. 01/20/2018 3:00 PM Dictated Date/Time: 01/20/2018 2:51 PM [~ rep ct add3]] CHEST ONE VIEW PORTABLE CLINICAL HISTORY: 72 years-old Female presenting with Sepsis. TECHNIQUE: Portable upright AP view of the chest was obtained. COMPARISON: 01/08/2018. FINDINGS: Atherosclerosis of the aortic arch. Cardiac silhouette normal in size. No focal opacity. No large effusion or pneumothorax. Osseous structures normal. Surgical clip or biopsy clip projects over the right breast. IMPRESSION: 1. No acute cardiopulmonary disease. Electronically signed by: Rodríguez Jose M.D. 01/20/2018 1:57 PM Dictated Date/Time: 01/20/2018 1:57 PM Last Resulted CBC 01/22/18 06:25 Last Resulted BMP 01/22/18 06:25 Medication Reconciliation New Medications: Ciprofloxacin (Ciprofloxacin HCl) 500 Mg Tab 500 MG PO BID, #14 TAB Metronidazole (Metronidazole) 500 Mg Tab 500 MG PO TID, #21 TAB Continued Medications: Aspirin Enteric Coated (Ecotrin Or Generic) 81 Mg Tab 81 MG PO QAM Buspirone Hcl (Buspirone Hcl) 5 Mg Tab 5 MG PO BID PRN for Anxiety/Agitation for 30 Days, #60 TAB Cholecalciferol (Vitamin D3) 1,000 Unit Tab 1000 UNITS PO QAM for 90 Days Donepezil Hydrochloride (Donepezil Hcl) 10 Mg Tab 10 MG PO QAM Levothyroxine Sodium (Levothyroxine Sodium) 75 Mcg Tab 75 MCG PO DAILY Lisinopril (Zestril) 10 Mg Tab 10 MG PO QAM for 30 Days, #30 TAB Lorazepam (Ativan) 0.5 Mg Tab 0.5 MG PO BID PRN for Anxiety/Agitation, TAB Melatonin (Melatonin) 1 Mg Tab 1 MG PO HS Memantine Hcl (Namenda) 10 Mg Tab 10 MG PO BID Rivaroxaban (Xarelto) 20 Mg Tab 20 MG PO QAM Simvastatin (Zocor) 20 Mg Tab 20 MG PO QPM, TAB Venlafaxine Hcl (Effexor Xr) 37.5 Mg Cap 37.5 MG PO QAM for 30 Days, #30 CAP TOTAL DOSE 112.5 MG. Venlafaxine Hcl (Effexor Xr) 75 Mg Cap 75 MG PO QAM for 30 Days, #30 CAP TOTAL DOSE 112.5 MG. Discharge Exam Physical Exam: General Appearance: no apparent distress Eyes: EOMI Neck: trachea midline Respiratory/Chest: no respiratory distress, no accessory muscle use Abdomen / GI: non tender, soft Neurologic/Psychiatric: ux ui designer II-XII nml as tested, alert Skin: normal color, warm/dry Hospital Course 72 y/o F PMH severe dementia, admitted on 01/20 for acute diverticulitis from [facility] after fever, abdominal pain, diarrhea x 2 days. Recent admission for ? metabolic encephalopathy vs worsening dementia 01/08/18, but had reportedly been doing well after discharge until recent symptoms began. Diverticulitis -noted on CT AP (on 01/08/18 showed only advanced diverticulosis) -finish course fo cipro and flagyl -safe to discharge to home -updated son luba, answered all questions to the best of my ability Advanced dementia -Continue home meds -Son concerned about recent stoppage of olanzapine on previous admission and increased dose of effexor; feels she is more agitated since this switch -Recommend continued outpatient follow up, strongest suspicion is agitation is more from infections and changing environements than medications -Discussed with display fabrication supervisor recommendation to follow water intake throughout the day and document in notebook. 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 stopping after 3 months -No evidence of this being second clot, will need to discuss with family whether she had ever been on blood thinners in past for clots stable for home Total Time Spent: Less than 30 minutes This includes examination of the patient, discharge planning, medication reconciliation, and communication with other providers. Discharge Instructions Please refer to the electronic Patient Visit Report (Discharge Instructions) for additional information. Additional Copies To Naomi Patterson
[2018-01-24] MEDS ORDERED: LSN10 PO (09:14)
== END 2018-01-23 15:30 | disposition home health service (06) | DRG 392 ==
LOC: EDBD 12:38 → C.EDB 12:40 → C.MS4W 15:54 → ENRESERV 16:03
PROVIDERS: ADMIT Family Medicine; ATTEND Family Medicine
DX: K57.32 Diverticulitis of large intestine without perforation or abscess without bleeding (principal); F03.90 Unspecified dementia, unspecified severity, without behavioral disturbance, psychotic disturbance, mood disturbance, and anxiety; I10 Essential (primary) hypertension; Z86.718 Personal history of other venous thrombosis and embolism; Z86.711 Personal history of pulmonary embolism; Z87.891 Personal history of nicotine dependence; Z79.01 Long term (current) use of anticoagulants; Z79.82 Long term (current) use of aspirin; Z79.899 Other long term (current) drug therapy

== ENCOUNTER 2018-02-07 18:21 | Inpatient (IN) | payer OTHER, BC ==
[~2018-02-07] VITALS: Ht 152.4 cm; Wt 57.4 kg
[~2018-02-07 18:21] MED LIST changes: +ASPI-319 PO; +CHOL1000 PO; +CPR500 PO; +DONE1TAB26 PO; +LEVO75TA5 PO; +MEMA10TA PO; +MTR500 PO; +SIMV20TA2 PO
[2018-02-07] MEDS ORDERED: IBUPROFEN 600 MG TAB ONE (19:01)
[2018-02-07] MEDS ORDERED: SODIUM CHLORIDE 0.9% 1000ML 2,000 ML IV STA (19:13)
[2018-02-07] MEDS ORDERED: OPTIRAY 320 IV PRN (19:30)
[2018-02-07 19:35] LABS: HEMATOCRIT 34.5 % (37-47); HEMOGLOBIN 11.7 g/dL (12.0-16.0); MEAN CELL VOLUME 89.1 fL (80-100); MEAN CORPUSCULAR HEMOGLOBIN 30.2 pg (25-34); MEAN CORPUSCULAR HGB CONC 33.9 g/dl (32-36); MEAN PLATELET VOLUME 11.3 fL (7.4-10.4); PLATELET COUNT 233 K/uL (130-400); RED CELL DISTRIBUTION WIDTH CV 14.9 % (11.5-14.5); RED CELL DISTRIBUTION WIDTH SD 48.6 fL (36.4-46.3); WHITE BLOOD COUNT 23.27 K/uL (4.8-10.8)
[2018-02-07 19:59] LABS: INR 1.1 (0.9-1.1)
[2018-02-07 20:01] LABS: BASO % 0.1 %; BASO ABS # 0.02 K/uL (0-0.2); EOS % 0.1 %; EOS ABS # 0.02 K/uL (0-0.5); LYMPH % 3.9 %; MONO ABS # 1.85 K/uL (0.11-0.59); NEUT % 87.5 %; NEUT ABS # 20.38 K/uL (1.4-6.5)
[2018-02-07 20:07] LABS: ALBUMIN 2.9 gm/dl (3.4-5.0); ALKALINE PHOSPHATASE 86 U/L (45-117); ALT/SGPT 22 U/L (12-78); AST/SGOT 22 U/L (15-37); BLOOD UREA NITROGEN 11 mg/dl (7-18); CALCIUM 8.4 mg/dl (8.5-10.1); CARBON DIOXIDE 25 mmol/L (21-32); CREATININE 0.71 mg/dl (0.60-1.20); GLUCOSE 111 mg/dl (70-99); LIPASE 531 U/L (73-393); POTASSIUM 3.7 mmol/L (3.5-5.1); SODIUM 135 mmol/L (136-145); TOTAL PROTEIN 6.8 gm/dl (6.4-8.2)
--- NOTE | 2018-02-07 20:37 | DIAGNOSTIC IMAGING REPORT ---
CHEST ONE VIEW PORTABLE HISTORY: 72 years-old Female Evaluate Fever/Sepsis acute fever and sepsis with weakness COMPARISON: Chest radiograph 01/20/2018 TECHNIQUE: Portable AP view of the chest FINDINGS: Cardiomediastinal and hilar silhouettes are within normal limits. Atherosclerosis of the aorta. No pneumothorax, pleural effusion, focal airspace consolidation or overt pulmonary edema. Degenerative changes of the shoulders and spine. IMPRESSION: No acute process. The above report was generated using voice recognition software. It may contain grammatical, syntax or spelling errors. Electronically signed by: Rajesh Roberts M.D. 02/07/2018 8:36 PM Dictated Date/Time: 02/07/2018 8:35 PM
--- NOTE | 2018-02-07 20:58 | DIAGNOSTIC IMAGING REPORT ---
ABDOMEN AND PELVIS CT WITH IV CONTRAST CT DOSE: 572.16 mGycm HISTORY: Acute fever with history of recent sigmoid diverticulitis fevers, recent diverticulitis TECHNIQUE: Multiaxial CT images of the abdomen and pelvis were performed following the use of intravenous contrast. A dose lowering technique was utilized adhering to the principles of ALARA. COMPARISON STUDY: CT 01/20/2018. FINDINGS: Mild subsegmental bibasilar atelectasis. 3 mm pericardial lymph node at the left lung base. No pneumatosis or pneumoperitoneum. Imaged inferior cardiac chambers are unremarkable with coronary arterial calcifications. There is redemonstration of multiple lobulated lesions throughout the liver are slightly hypoechoic measuring up to 1.5 cm within the right hepatic lobe. These appear unchanged. No intrahepatic biliary ductal dilation. Layering gallstones are again seen within the gallbladder lumen. No CT evidence of acute cholecystitis. Indeterminate 5 mm low attenuating lesion of the inferior spleen, statistically benign. Moderate generalized pancreatic atrophy. Adrenal glands are unremarkable. External renal pelves noted bilaterally. No renal calculi or hydronephrosis. The ureters and bladder are unremarkable. Prior hysterectomy. Moderate mixed plaquing of the aorta without aneurysm. Nonenlarged periaortic lymph nodes are likely physiologic. Small sliding-type hilar hernia. Small duodenal diverticulum. No small bowel obstruction. There is moderate stool volume throughout the colon suggesting constipation. Extensive sigmoid diverticulitis with improved near complete resolution of the previously noted inflammatory changes. There is suggestion of only minimal pericolonic inflammatory stranding at the descending sigmoid junction as seen on image 319 series 3. No evidence of abscess or perforation. The appendix is fluid-filled however does not appear to be inflamed or dilated. Soft tissues are unremarkable. Bones appear intact. Severe intervertebral disc space narrowing with posterior disc osteophyte complex at L5-S1. IMPRESSION: 1. Marked improvement with near complete resolution of the inflammatory changes about the sigmoid colon compared to prior study dated 01/20/2018 suggesting resolving sigmoid diverticulitis. No evidence of perforation or abscess. 2. No bowel obstruction. 3. Moderate colonic stool formation suggests constipation. 4. Cholelithiasis without CT evidence of acute cholecystitis. 5. Small sliding-type hiatal hernia. 6. Additional findings as above. Electronically signed by: Rajesh Roberts M.D. 02/07/2018 8:57 PM Dictated Date/Time: 02/07/2018 8:46 PM
[2018-02-07] MEDS ORDERED: SODIUM CHLORIDE 0.9% 1000ML 1,000 ML IV STA (21:09)
[2018-02-07] MEDS ORDERED: METRONIDAZOLE 500MG / 100ML NSS IV STA (21:09)
[2018-02-07] MEDS ORDERED: VANCOMYCIN 1GM ED/ASU OMNICELL IV STA (21:09)
[2018-02-07] MEDS ORDERED: CEFEPIME IV 1,000 MG in DEXTROSE 5% 100ML 100 ML IV STA (21:09)
[2018-02-07] MEDS ORDERED: ACETAMINOPHEN IV 100 ML IV STA (21:28)
[2018-02-07 22:28] LABS: PHOSPHORUS 2.7 mg/dl (2.5-4.9)
[2018-02-07] MEDS ORDERED: LISI-791 PO (22:29)
--- NOTE | 2018-02-07 22:31 | EMERGENCY ROOM VISIT NOTE ---
History Report prepared by Sj: Gayle Martinez Under the Supervision of: Dr. Ector Brady M.D. First contact with patient: 19:01 Chief Complaint: FEVER Stated Complaint: FEVER 102 UNRESPONSIVE History of Present Illness The patient is a 72 year old female who presents to the Emergency Room with complaints of worsening fever starting yesterday. The patient has a history of dementia and lives with her son. She has caretakers during the day. She developed a slight fever of 99.8 this morning. She had been taking Tylenol to some relief, but by 1630 her temperature was 102. The patient was admitted to the hospital for an infection around 1 month ago. She was discharged to a group home, but soon after returned to the ED with diverticulitis. The patient was on antibiotics for her diverticulitis which caused her to have diarrhea. She finished the antibiotics 1 week ago and her bowel movements have become more solid. She had been able to walk up the stairs without difficulty after being discharged home. Yesterday, she started pausing more while going up the stairs. She has been fatigued and weak since last night. She coughed a little last night which seemed to resolve with water. She has not had any nausea, vomiting, or diarrhea. She has been incontinent of urine since her ED visit 1 month ago. She has some left sided weakness at baseline. Her son noticed that her neck seemed to be stiff 2 days ago. She has been leaning to the left side when she sits. Source of History: family Onset: yesterday Symptom Intensity: 102 Quality: other (fever) Timing: worsening Modifying Factors (Relieving): tylenol Associated Symptoms: + fatigue, + weakness, No nausea, No vomiting, No diarrhea Review of Systems See HPI for pertinent positives and negatives. A total of ten systems were reviewed and were otherwise negative. Past Medical & Surgical Medical Problems: (1) Dementia (2) Diverticulitis (3) DVT (deep venous thrombosis) (4) Hypertension (5) Pulmonary embolism (6) Thyroid disease Surgical Problems: (1) H/O: hysterectomy (2) Hx of hysterectomy Family History Cancer Heart disease Hypertension Social History Smoking Status: Never Smoker Alcohol Use: none Drug Use: none Marital Status: single Housing Status: lives alone Occupation Status: retired Current/Historical Medications Scheduled Aspirin Enteric Coated (Ecotrin Or Generic), 81 MG PO QAM Cholecalciferol (Vitamin D3), 1,000 INTER.UNIT PO QAM Donepezil Hydrochloride (Donepezil Hcl), 10 MG PO QAM Levothyroxine Sodium (Levothyroxine Sodium), 75 MCG PO DAILY Lisinopril (Zestril), 10 MG PO QAM Melatonin (Melatonin), 1 MG PO HS Memantine Hcl (Namenda), 10 MG PO BID Rivaroxaban (Xarelto), 20 MG PO QAM Simvastatin (Zocor), 20 MG PO QPM Venlafaxine Hcl (Effexor Xr), 37.5 MG PO QAM Venlafaxine Hcl (Effexor Xr), 75 MG PO QAM Scheduled PRN Buspirone Hcl (Buspirone Hcl), 5 MG PO BID PRN for Anxiety/Agitation Lorazepam (Ativan), 0.5 MG PO BID PRN for Anxiety/Agitation Allergies Coded Allergies: No Known Allergies (Verified , 01/07/18) Physical Exam Vital Signs Date Time Temp Pulse Resp B/P (MAP) Pulse Ox O2 Delivery O2 Flow Rate FiO2 02/07/18 21:03 120 20 144/71 97 Room Air 02/07/18 19:42 110 20 137/79 96 Room Air 02/07/18 19:32 96 Room Air 02/07/18 18:45 123 02/07/18 18:24 38.5 124 16 125/82 96 Room Air Physical Exam GENERAL: Awake, ill-appearing, in no distress HENT: Normocephalic, atraumatic. Dry cracked mucous membranes, otherwise oropharynx unremarkable. EYES: Normal conjunctiva. Sclera non-icteric. NECK: Supple. No nuchal rigidity. FROM. No JVD. RESPIRATORY: Clear to auscultation. CARDIAC: Sinus tachycardia. Extremities warm and well perfused. Pulses equal. ABDOMEN: Soft, non-distended. No tenderness to palpation. No rebound or guarding. No masses. RECTAL: Deferred. MUSCULOSKELETAL: Chest examination reveals no tenderness. The back is symmetrical on inspection without obvious abnormality. There is no CVA tenderness to palpation. No joint edema. LOWER EXTREMITIES: Calves are equal size bilaterally and non-tender. No edema. No discoloration. NEURO: Normal sensorium. No sensory or motor deficits noted. SKIN: No rash or jaundice noted. Medical Decision & Procedures ER Provider Diagnostic Interpretation: Radiology results as stated below per my review and radiologist interpretation: CHEST ONE VIEW PORTABLE HISTORY: 72 years-old Female Evaluate Fever/Sepsis acute fever and sepsis with weakness COMPARISON: Chest radiograph 01/20/2018 TECHNIQUE: Portable AP view of the chest FINDINGS: Cardiomediastinal and hilar silhouettes are within normal limits. Atherosclerosis of the aorta. No pneumothorax, pleural effusion, focal airspace consolidation or overt pulmonary edema. Degenerative changes of the shoulders and spine. IMPRESSION: No acute process. The above report was generated using voice recognition software. It may contain grammatical, syntax or spelling errors. Electronically signed by: Rajesh Roberts M.D. 02/07/2018 8:36 PM Dictated Date/Time: 02/07/2018 8:35 PM ABDOMEN AND PELVIS CT WITH IV CONTRAST CT DOSE: 572.16 mGycm HISTORY: Acute fever with history of recent sigmoid diverticulitis fevers, recent diverticulitis TECHNIQUE: Multiaxial CT images of the abdomen and pelvis were performed following the use of intravenous contrast. A dose lowering technique was utilized adhering to the principles of ALARA. COMPARISON STUDY: CT 01/20/2018. FINDINGS: Mild subsegmental bibasilar atelectasis. 3 mm pericardial lymph node at the left lung base. No pneumatosis or pneumoperitoneum. Imaged inferior cardiac chambers are unremarkable with coronary arterial calcifications. There is redemonstration of multiple lobulated lesions throughout the liver are slightly hypoechoic measuring up to 1.5 cm within the right hepatic lobe. These appear unchanged. No intrahepatic biliary ductal dilation. Layering gallstones are again seen within the gallbladder lumen. No CT evidence of acute cholecystitis. Indeterminate 5 mm low attenuating lesion of the inferior spleen, statistically benign. Moderate generalized pancreatic atrophy. Adrenal glands are unremarkable. External renal pelves noted bilaterally. No renal calculi or hydronephrosis. The ureters and bladder are unremarkable. Prior hysterectomy. Moderate mixed plaquing of the aorta without aneurysm. Nonenlarged periaortic lymph nodes are likely physiologic. Small sliding-type hilar hernia. Small duodenal diverticulum. No small bowel obstruction. There is moderate stool volume throughout the colon suggesting constipation. Extensive sigmoid diverticulitis with improved near complete resolution of the previously noted inflammatory changes. There is suggestion of only minimal pericolonic inflammatory stranding at the descending sigmoid junction as seen on image 319 series 3. No evidence of abscess or perforation. The appendix is fluid-filled however does not appear to be inflamed or dilated. Soft tissues are unremarkable. Bones appear intact. Severe intervertebral disc space narrowing with posterior disc osteophyte complex at L5-S1. IMPRESSION: 1. Marked improvement with near complete resolution of the inflammatory changes about the sigmoid colon compared to prior study dated 01/20/2018 suggesting resolving sigmoid diverticulitis. No evidence of perforation or abscess. 2. No bowel obstruction. 3. Moderate colonic stool formation suggests constipation. 4. Cholelithiasis without CT evidence of acute cholecystitis. 5. Small sliding-type hiatal hernia. 6. Additional findings as above. Electronically signed by: Rajesh Roberts M.D. 02/07/2018 8:57 PM Dictated Date/Time: 02/07/2018 8:46 PM Laboratory Results 02/07/18 18:51 Red Blood Count 3.87, Mean Corpuscular Volume 89.1, Mean Corpuscular Hemoglobin 30.2, Mean Corpuscular Hemoglobin Concent 33.9, Mean Platelet Volume 11.3, Neutrophils (%) (Auto) 87.5, Lymphocytes (%) (Auto) 3.9, Monocytes (%) (Auto) 8.0, Eosinophils (%) (Auto) 0.1, Basophils (%) (Auto) 0.1, Neutrophils # (Auto) 20.38, Lymphocytes # (Auto) 0.90, Monocytes # (Auto) 1.85, Eosinophils # (Auto) 0.02, Basophils # (Auto) 0.02 02/07/18 18:51 Test 02/07/18 18:51 02/07/18 19:01 02/07/18 19:43 White Blood Count 23.27 K/uL (4.8-10.8) Red Blood Count 3.87 M/uL (4.2-5.4) Hemoglobin 11.7 g/dL (12.0-16.0) Hematocrit 34.5 % (37-47) Mean Corpuscular Volume 89.1 fL (80-100) Mean Corpuscular Hemoglobin 30.2 pg (25-34) Mean Corpuscular Hemoglobin Concent 33.9 g/dl (32-36) Platelet Count 233 K/uL (130-400) Mean Platelet Volume 11.3 fL (7.4-10.4) Neutrophils (%) (Auto) 87.5 % Lymphocytes (%) (Auto) 3.9 % Monocytes (%) (Auto) 8.0 % Eosinophils (%) (Auto) 0.1 % Basophils (%) (Auto) 0.1 % Neutrophils # (Auto) 20.38 K/uL (1.4-6.5) Lymphocytes # (Auto) 0.90 K/uL (1.2-3.4) Monocytes # (Auto) 1.85 K/uL (0.11-0.59) Eosinophils # (Auto) 0.02 K/uL (0-0.5) Basophils # (Auto) 0.02 K/uL (0-0.2) RDW Standard Deviation 48.6 fL (36.4-46.3) RDW Coefficient of Variation 14.9 % (11.5-14.5) Immature Granulocyte % (Auto) 0.4 % Immature Granulocyte # (Auto) 0.10 K/uL (0.00-0.02) Prothrombin Time 12.0 SECONDS (9.0-12.0) Prothromb Time International Ratio 1.1 (0.9-1.1) Anion Gap 6.0 mmol/L (3-11) Estimated GFR () 99.3 Estimated GFR (Non- 85.7 BUN/Creatinine Ratio 15.8 (10-20) Calcium Level 8.4 mg/dl (8.5-10.1) Phosphorus Level 2.7 mg/dl (2.5-4.9) Magnesium Level 1.8 mg/dl (1.8-2.4) Total Bilirubin 0.5 mg/dl (0.2-1) Direct Bilirubin mg/dl (0-0.2) Aspartate Amino Transf (AST/SGOT) 22 U/L (15-37) Alanine Aminotransferase (ALT/SGPT) 22 U/L (12-78) Alkaline Phosphatase 86 U/L (45-117) Troponin I < 0.015 ng/ml (0-0.045) Total Protein 6.8 gm/dl (6.4-8.2) Albumin 2.9 gm/dl (3.4-5.0) Lipase 531 U/L (73-393) Thyroid Stimulating Hormone (TSH) 0.275 uIu/ml (0.300-4.500) Free Thyroxine 1.32 ng/dl (0.80-1.60) Chemistry Specimen Hemolysis Bedside Lactic Acid Venous 1.74 mmol/L (0.90-1.70) Venous Blood pH 7.44 (7.36-7.41) Venous Blood Partial Pressure CO2 42 mmHg (38.0-50.0) Venous Blood Partial Pressure O2 29 mmHg Venous Blood HCO3 28 mmol/L Venous Blood Oxygen Saturation < 60.0 % Venous Blood Base Excess 3.4 mEq/L Lactic Acid Level 1.2 mmol/L (0.4-2.0) Laboratory results reviewed by me Medications Administered Medications (Trade) Dose Ordered Sig/Fang Route Start Time Stop Time Status Last Admin Dose Admin Sodium Chloride 2,000 ml @ 999 mls/hr Q2H1M STAT IV 02/07/18 19:13 02/07/18 21:13 DC 02/07/18 19:13 999 MLS/HR Vancomycin HCl (Vancomycin 1gm Ed/Asu Omnicell) 1 gm NOW STAT IV 02/07/18 21:09 02/07/18 21:13 DC 02/07/18 22:41 1 GM Cefepime HCl 1000 mg/Dextrose 111 ml @ 200 mls/hr NOW STAT IV 02/07/18 21:09 02/07/18 21:42 DC 02/07/18 22:41 200 MLS/HR Metronidazole (Flagyl / Nss) 500 mg NOW STAT IV 02/07/18 21:09 02/07/18 21:13 DC 02/07/18 21:23 500 MG Sodium Chloride 1,000 ml @ 999 mls/hr Q1H1M STAT IV 02/07/18 21:09 02/07/18 22:09 DC 02/07/18 21:09 999 MLS/HR Acetaminophen 100 ml @ 400 mls/hr NOW STAT IV 02/07/18 21:28 02/07/18 21:42 DC 02/07/18 22:42 400 MLS/HR ECG Per My Interpretation Indication: weakness Rate (beats per minute): 109 Rhythm: sinus tachycardia Findings: no acute ischemic change, other (normal axis) ED Course 1905: The patient was evaluated in room A3. A complete history and physical exam was performed. 2138: Upon reexamination, the patient was stable. I discussed the test results and treatment plan with her family. The patient will be evaluated for further management. 2205: I discussed the patient with DELTA Flores hospitalist - He will evaluate the patient for further treatment. Medical Decision I reviewed the patient's past medical history, medications, and the nursing notes as described above. Differential diagnosis: Etiologies such as viral syndrome, otitis, pharyngitis, pneumonia, influenza, meningitis, urinary tract infection, sepsis, bacteremia, as well as others were entertained. The patient is a 72-year-old woman with a past medical history of severe dementia, prior DVT/PE on Xarelto, recent admission for diverticulitis no longer on antibiotics who presents emergency department with worsening generalized weakness, confusion, shortness of breath over the past couple of days with fevers per hpi. On arrival the patient is fatigued and uncomfortable , ill-appearing but no acute distress, febrile to 38.5 with heart rate 120s vital signs otherwise stable. EKG demonstrates sinus tachycardia. WBC 23. Lactate within normal limits. ph7.44. Chest x-ray negative for pneumonia. CT abdomen pelvis unremarkable. UA pending. The patient's tachycardia and significant leukocytosis the patient was treated empirically with vancomycin, cefepime, Flagyl for possible sepsis. Unclear source at this time. Blood cultures sent. Bedside echo performed and negative for pericardial effusion and otherwise appears hyperdynamic similar to patient's recent echo. Case was discussed with DELTA Flores hospitalist will admit the patient for further management. Medication Reconcilliation Current Medication List: was personally reviewed by me Blood Pressure Screening Patient's blood pressure: Elevated blood pressure Referred to hospitalist. Consults Time Called: 2112 Consulting Physician: DELTA Flores hospitalist Returned Call: [phone] I discussed the patient with him - He will evaluate the patient for further treatment. Impression Primary Impression: Sepsis Additional Impressions: Leukocytosis Dehydration Critical Care I have personally spent greater than 35 minutes of critical care time in the direct management of this patient. This includes bedside care, interpretation of diagnostic studies, and testing, discussion with consultants, patient, and family members, and other required patient management activities. This 35 minutes is in excess of all separately billable procedures. Scribe Attestation The scribe's documentation has been prepared under my direction and personally reviewed by me in its entirety. I confirm that the note above accurately reflects all work, treatment, procedures, and medical decision making performed by me. Departure Information Dispostion Being Evaluated By Hospitalist Referrals Naomi Patterson (PCP) Patient Instructions My [facility] Problem Qualifiers
[2018-02-07] MEDS ORDERED: ONDANSETRON INJ 2 MG/ML 2 ML VIAL IV PRN (22:45)
[2018-02-07] MEDS ORDERED: POLYETHYLENE (MIRALAX) 17 GM PACK PO PRN (22:45)
[2018-02-07] MEDS ORDERED: MAGNESIUM HYDROXIDE SUSP 30 ML UDC PO PRN (22:45)
--- NOTE | 2018-02-07 22:45 | History and Physical ---
History & Physical Date & Time of Service: February 07, 2018 at 22:42 Chief Complaint: Fever 102 Unresponsive Primary Care Physician: Naomi Patterson History of Present Illness Source: family 72-year-old female with a past medical history of dementia, PE/DVT, hypertension , hypothyroidism, recent hospital admission for diverticulitis on 01/20 presented to the ER with complaints of fever and abdominal pain. The patient had recently finished a course of antibiotics for diverticulitis about a week ago. She was found to be more weak and fatigued complaint of abdominal pain. Denies any nausea vomiting or diarrhea. Denies any chest pain , shortness of breath. Denies any dysuria, hematuria but has been incontinent. Past Medical/Surgical History Medical Problems: (1) Back strain (2) Dehydration (3) Dementia (4) Dementia (5) Diverticulitis (6) Diverticulitis (7) DVT (deep venous thrombosis) (8) Fall (9) Fever (10) Head trauma (11) Hypertension (12) Influenza-like symptoms (13) Multiple contusions (14) Pulmonary embolism (15) Sepsis (16) Slurred speech (17) Status post fall (18) Thyroid disease Surgical Problems: (1) H/O: hysterectomy (2) Hx of hysterectomy Family History Cancer Heart disease Hypertension Social History Smoking Status: Never Smoker Smokeless Tobacco Use: No Alcohol Use: none Drug Use: none Marital Status: single Occupational Status: retired Immunizations History of Influenza Vaccine: Unknown History of Tetanus Vaccine?: Unknown History of Pneumococcal: Unknown History of Hepatitis B Vaccine: Unknown Allergies Coded Allergies: No Known Allergies (Verified , 01/07/18) Home Medications Scheduled Aspirin Enteric Coated (Ecotrin Or Generic), 81 MG PO QAM Cholecalciferol (Vitamin D3), 1,000 INTER.UNIT PO QAM Donepezil Hydrochloride (Donepezil Hcl), 10 MG PO QAM Levothyroxine Sodium (Levothyroxine Sodium), 75 MCG PO DAILY Lisinopril (Zestril), 10 MG PO QAM Melatonin (Melatonin), 1 MG PO HS Memantine Hcl (Namenda), 10 MG PO BID Rivaroxaban (Xarelto), 20 MG PO QAM Simvastatin (Zocor), 20 MG PO QPM Venlafaxine Hcl (Effexor Xr), 37.5 MG PO QAM Venlafaxine Hcl (Effexor Xr), 75 MG PO QAM Scheduled PRN Buspirone Hcl (Buspirone Hcl), 5 MG PO BID PRN for Anxiety/Agitation Lorazepam (Ativan), 0.5 MG PO BID PRN for Anxiety/Agitation Review of Systems Constitutional: + fever, No chills, No sweats Eyes: No worsening of vision ENT: No hearing loss Respiratory: No cough, No sputum, No wheezing, No shortness of breath Cardiovascular: No chest pain Abdomen: + pain, No nausea, No vomiting, No diarrhea Musculoskeletal: No joint pain Genitourinary - Female: + urinary incontinence, No dysuria, No urinary frequency Neurologic: + memory loss (h/o dementia) Psychiatric: No depression symptoms Endocrine: + fatigue Hematologic / Lymphatic: No abnormal bleeding/bruising Integumentary: No rash Physical Exam Vital Signs Date Time Temp Pulse Resp B/P (MAP) Pulse Ox O2 Delivery O2 Flow Rate FiO2 02/07/18 21:03 120 20 144/71 97 Room Air 02/07/18 19:42 110 20 137/79 96 Room Air 02/07/18 19:32 96 Room Air 02/07/18 18:45 123 02/07/18 18:24 38.5 124 16 125/82 96 Room Air General Appearance: WD/WN Head: normocephalic Eyes: normal inspection ENT: hearing grossly normal Neck: supple Respiratory/Chest: chest non-tender, lungs clear, normal breath sounds, no respiratory distress, no accessory muscle use Cardiovascular: + tachycardia Abdomen/GI: normal bowel sounds, non tender, soft Extremities/Musculoskelatal: no pedal edema Neurologic/Psych: alert, oriented x 3 Skin: normal color Diagnostics Laboratory Results Results Past 24 Hours Test 02/07/18 18:51 02/07/18 19:01 02/07/18 19:13 02/07/18 19:43 Range/Units White Blood Count 23.27 4.8-10.8 K/uL Red Blood Count 3.87 4.2-5.4 M/uL Hemoglobin 11.7 12.0-16.0 g/dL Hematocrit 34.5 37-47 % Mean Corpuscular Volume 89.1 80-100 fL Mean Corpuscular Hemoglobin 30.2 25-34 pg Mean Corpuscular Hemoglobin Concent 33.9 32-36 g/dl Platelet Count 233 130-400 K/uL Mean Platelet Volume 11.3 7.4-10.4 fL Neutrophils (%) (Auto) 87.5 % Lymphocytes (%) (Auto) 3.9 % Monocytes (%) (Auto) 8.0 % Eosinophils (%) (Auto) 0.1 % Basophils (%) (Auto) 0.1 % Neutrophils # (Auto) 20.38 1.4-6.5 K/uL Lymphocytes # (Auto) 0.90 1.2-3.4 K/uL Monocytes # (Auto) 1.85 0.11-0.59 K/uL Eosinophils # (Auto) 0.02 0-0.5 K/uL Basophils # (Auto) 0.02 0-0.2 K/uL RDW Standard Deviation 48.6 36.4-46.3 fL RDW Coefficient of Variation 14.9 11.5-14.5 % Immature Granulocyte % (Auto) 0.4 % Immature Granulocyte # (Auto) 0.10 0.00-0.02 K/uL Prothrombin Time 12.0 9.0-12.0 SECONDS Prothromb Time International Ratio 1.1 0.9-1.1 Sodium Level 135 136-145 mmol/L Potassium Level 3.7 3.5-5.1 mmol/L Chloride Level 104 98-107 mmol/L Carbon Dioxide Level 25 21-32 mmol/L Anion Gap 6.0 3-11 mmol/L Blood Urea Nitrogen 11 7-18 mg/dl Creatinine 0.71 0.60-1.20 mg/dl Estimated GFR () 99.3 Estimated GFR (Non- 85.7 BUN/Creatinine Ratio 15.8 10-20 Random Glucose 111 70-99 mg/dl Calcium Level 8.4 8.5-10.1 mg/dl Phosphorus Level 2.7 2.5-4.9 mg/dl Magnesium Level 1.8 1.8-2.4 mg/dl Total Bilirubin 0.5 0.2-1 mg/dl Direct Bilirubin 0-0.2 mg/dl Aspartate Amino Transf (AST/SGOT) 22 15-37 U/L Alanine Aminotransferase (ALT/SGPT) 22 12-78 U/L Alkaline Phosphatase 86 45-117 U/L Troponin I < 0.015 0-0.045 ng/ml Total Protein 6.8 6.4-8.2 gm/dl Albumin 2.9 3.4-5.0 gm/dl Lipase 531 73-393 U/L Thyroid Stimulating Hormone (TSH) 0.275 0.300-4.500 uIu/ml Free Thyroxine 1.32 0.80-1.60 ng/dl Chemistry Specimen Hemolysis Bedside Lactic Acid Venous 1.74 0.90-1.70 mmol/L Venous Blood pH 7.44 7.36-7.41 Venous Blood Partial Pressure CO2 42 38.0-50.0 mmHg Venous Blood Partial Pressure O2 29 mmHg Venous Blood HCO3 28 mmol/L Venous Blood Oxygen Saturation < 60.0 % Venous Blood Base Excess 3.4 mEq/L Lactic Acid Level 1.2 0.4-2.0 mmol/L Microbiology Results 02/07/18 Blood Culture, Received Pending 02/07/18 Blood Culture, Received Pending 02/07/18 Urine Culture, Ordered Pending Diagnostic Radiology [~ rep ct add3]] CHEST ONE VIEW PORTABLE HISTORY: 72 years-old Female Evaluate Fever/Sepsis acute fever and sepsis with weakness COMPARISON: Chest radiograph 01/20/2018 TECHNIQUE: Portable AP view of the chest FINDINGS: Cardiomediastinal and hilar silhouettes are within normal limits. Atherosclerosis of the aorta. No pneumothorax, pleural effusion, focal airspace consolidation or overt pulmonary edema. Degenerative changes of the shoulders and spine. IMPRESSION: No acute process. The above report was generated using voice recognition software. It may contain grammatical, syntax or spelling errors. Electronically signed by: Rajesh Roberts M.D. 02/07/2018 8:36 PM ABDOMEN AND PELVIS CT WITH IV CONTRAST CT DOSE: 572.16 mGycm HISTORY: Acute fever with history of recent sigmoid diverticulitis fevers, recent diverticulitis TECHNIQUE: Multiaxial CT images of the abdomen and pelvis were performed following the use of intravenous contrast. A dose lowering technique was utilized adhering to the principles of ALARA. COMPARISON STUDY: CT 01/20/2018. FINDINGS: Mild subsegmental bibasilar atelectasis. 3 mm pericardial lymph node at the left lung base. No pneumatosis or pneumoperitoneum. Imaged inferior cardiac chambers are unremarkable with coronary arterial calcifications. There is redemonstration of multiple lobulated lesions throughout the liver are slightly hypoechoic measuring up to 1.5 cm within the right hepatic lobe. These appear unchanged. No intrahepatic biliary ductal dilation. Layering gallstones are again seen within the gallbladder lumen. No CT evidence of acute cholecystitis. Indeterminate 5 mm low attenuating lesion of the inferior spleen, statistically benign. Moderate generalized pancreatic atrophy. Adrenal glands are unremarkable. External renal pelves noted bilaterally. No renal calculi or hydronephrosis. The ureters and bladder are unremarkable. Prior hysterectomy. Moderate mixed plaquing of the aorta without aneurysm. Nonenlarged periaortic lymph nodes are likely physiologic. Small sliding-type hilar hernia. Small duodenal diverticulum. No small bowel obstruction. There is moderate stool volume throughout the colon suggesting constipation. Extensive sigmoid diverticulitis with improved near complete resolution of the previously noted inflammatory changes. There is suggestion of only minimal pericolonic inflammatory stranding at the descending sigmoid junction as seen on image 319 series 3. No evidence of abscess or perforation. The appendix is fluid-filled however does not appear to be inflamed or dilated. Soft tissues are unremarkable. Bones appear intact. Severe intervertebral disc space narrowing with posterior disc osteophyte complex at L5-S1. IMPRESSION: 1. Marked improvement with near complete resolution of the inflammatory changes about the sigmoid colon compared to prior study dated 01/20/2018 suggesting resolving sigmoid diverticulitis. No evidence of perforation or abscess. 2. No bowel obstruction. 3. Moderate colonic stool formation suggests constipation. 4. Cholelithiasis without CT evidence of acute cholecystitis. 5. Small sliding-type hiatal hernia. 6. Additional findings as above. Electronically signed by: Rajesh Roberts M.D. 02/07/2018 8:57 PM Dictated Date/Time: 02/07/2018 8:46 PM Impression Assessment and Plan 72-year-old female with a past medical history of dementia, PE/DVT, hypertension , hypothyroidism, recent hospital admission for diverticulitis on 01/20 presented to the ER with complaints of fever and abdominal pain. Diverticulitis: -CT abdomen pelvis suggestive of Marked improvement with near complete resolution of the inflammatory changes about the sigmoid colon compared to prior study dated 01/20/2018 suggesting resolving sigmoid diverticulitis. No evidence of perforation or abscess. Cholelithiasis without CT evidence of acute cholecystitis. -Started on Cipro and Flagyl -Clear liquids Tachycardia: - likely secondary to fever - fluids and Tylenol as needed DVT/PE -Continue Xarelto Hypertension: -Continue lisinopril Hypothyroidism: -History of continue Synthroid Dementia -Continue Namenda and donepezil Mood disorder: Continue Effexor and BuSpar DVT prophylaxis: Xarelto Full code Attending addendum: I have physically seen this patient, have supervised the medical residents activities, and agree with the H&P unless as otherwise noted. Assessment and Plan: Recurrent diverticulitis-- Placed on Cipro and Flagyl IV. Clear liquid diet. Gentle IV fluids for rehydration. Hypertension/tachycardia-- Continue lisinopril. Heart rate should improve with IV fluid rehydration. DVT/PE history-- Continue Xarelto. Other orders as above. Advanced Directives Existing Advance Directive: No Existing Living Will: No Existing Power of Film Sorter: No Resuscitation Status Full VTE Prophylaxis Will order VTE Prophylaxis: Yes Social Service Consult None Apply Resident Tracking Resident Involvement: Resident Care Provided Care Provided: Adult Hospital Medicine
[2018-02-07] MEDS ORDERED: MELA1TAB4 PO (23:08)
[2018-02-07] MEDS ORDERED: LORA-741 PO (23:08)
[2018-02-07] MEDS ORDERED: VENL75CA PO (23:08)
[2018-02-07] MEDS ORDERED: VENL1CAP92 PO (23:08)
[2018-02-07] MEDS ORDERED: BUSP5TAB59 PO (23:08)
[2018-02-07] MEDS ORDERED: IV FLUIDS COMPLETED PRN (23:15)
[2018-02-07 23:30] VITALS: BP 147/85; PULSE 112; TEMP 37.3; O2SAT 95; BMI 23.6
[2018-02-08] VITALS (9 sets, daily range): BP systolic 106–164; BP diastolic 63–99; PULSE 111–130; TEMP 36.4–37.5; O2SAT 93–96
[2018-02-08] MEDS: SODIUM CHLORIDE 0.9% 1000ML 1,000 ML IV SCH ×3 (01:46→21:47)
[2018-02-08] MEDS: SIMVASTATIN 20 MG TAB PO SCH ×2 (01:46→21:48)
[2018-02-08] MEDS: CHOLECALCIFEROL 1000 INTER.UNIT TAB PO SCH ×2 (01:46→08:17)
[2018-02-08] MEDS: CIPROFLOXACIN / D5W 400 MG in PREMIXED IN D5W 200 ML IV SCH ×2 (04:20→16:31)
[2018-02-08] MEDS: ACETAMINOPHEN 325 MG TAB PO PRN ×2 (04:20→21:47)
[2018-02-08] MEDS: LEVOTHYROXINE 75 MCG TAB PO SCH (06:03)
[2018-02-08] MEDS: METRONIDAZOLE / NSS 500 MG in PREMIXED NSS 100 ML IV SCH ×3 (06:05→21:47)
--- NOTE | 2018-02-08 07:11 | Family Medicine Progress Note ---
Progress Note Date of Service February 08, 2018. Subjective Pt evaluation today including: conversation w/ family, physical exam, chart review Pain: generalized pain Patient asleep, has severe dementia, unable to provide adequate history Daughter gives collateral. Has had ongoing low grade fevers 99-100 since being discharged after treatment for C.diff Seems to look a little better today but still not herself When she gets fevers daughter states that she gets quite somnolent No new issues overnight Additional Comments: Review of systems could not be obtained at this time. Medications Current Inpatient Medications Medications (Trade) Dose Ordered Sig/Fang Route Start Time Stop Time Status Last Admin Dose Admin Ioversol (Optiray 320) 100 ml UD PRN IV 02/07/18 19:30 02/11/18 19:29 Sodium Chloride 1,000 ml @ 100 mls/hr Q10H IV 02/08/18 02:00 03/10/18 01:59 02/08/18 01:46 100 MLS/HR Acetaminophen (Tylenol Tab) 650 mg Q4H PRN PO 02/07/18 22:45 03/09/18 22:44 02/08/18 04:20 650 MG Magnesium Hydroxide (Milk Of Magnesia Susp) 30 ml Q12H PRN PO 02/07/18 22:45 03/09/18 22:44 Ondansetron HCl (Zofran Inj) 4 mg Q6H PRN IV 02/07/18 22:45 03/09/18 22:44 Polyethylene (Miralax Powder Packet) 17 gm DAILY PRN PO 02/07/18 22:45 03/09/18 22:44 Aspirin (Ecotrin Tab) 81 mg QAM PO 02/08/18 09:00 03/10/18 08:59 02/08/18 08:17 81 MG Buspirone HCl (Buspar Tab) 5 mg BID PRN PO 02/07/18 22:45 03/09/18 22:44 Cholecalciferol (Vitamin D Tab) 1,000 inter.unit QAM PO 02/08/18 09:00 03/10/18 08:59 02/08/18 08:17 1,000 INTER.UNIT Levothyroxine Sodium (Synthroid Tab) 75 mcg DAILYBB PO 02/08/18 06:00 03/10/18 05:59 02/08/18 06:03 75 MCG Lisinopril (Zestril Tab) 10 mg QAM PO 02/08/18 09:00 03/10/18 08:59 02/08/18 08:16 10 MG Memantine (Namenda Tab) 10 mg BID PO 02/08/18 09:00 03/10/18 08:59 02/08/18 08:16 10 MG Rivaroxaban (Xarelto Tab) 20 mg QAM PO 02/08/18 09:00 03/10/18 08:59 02/08/18 08:17 20 MG Simvastatin (Zocor Tab) 20 mg QPM PO 02/08/18 21:00 03/10/18 20:59 02/08/18 01:46 20 MG Venlafaxine HCl (effeXOR EXTENDED REL CAP) 37.5 mg QAM PO 02/08/18 09:00 03/10/18 08:59 02/08/18 08:17 37.5 MG Venlafaxine HCl (effeXOR EXTENDED REL CAP) 75 mg QAM PO 02/08/18 09:00 03/10/18 08:59 02/08/18 08:16 75 MG Donepezil HCl (Aricept Tab) 10 mg QAM PO 02/08/18 09:00 03/10/18 08:59 02/08/18 08:16 10 MG Ciprofloxacin/ Dextrose 400 mg/ Prmx 200 ml @ 100 mls/hr Q12H IV 02/08/18 04:00 02/18/18 03:59 02/08/18 04:20 100 MLS/HR Metronidazole 500 mg/Prmx 100 ml @ 100 mls/hr Q8H IV 02/08/18 06:00 02/18/18 05:59 02/08/18 06:05 100 MLS/HR Miscellaneous (Iv Fluids Completed) 1 ea PRN PRN N/A 02/07/18 23:15 02/07/19 23:14 Vancomycin HCl (Vancomycin Oral Soln) 250 mg Q6H PO 02/08/18 09:00 02/22/18 08:59 02/08/18 09:34 250 MG Raspberry (Raspberry Syrup 5ml Cup) 5 ml Q6H PO 02/08/18 09:00 02/22/18 08:59 02/08/18 09:34 5 ML Objective Vital Signs Date Time Temp Pulse Resp B/P (MAP) Pulse Ox O2 Delivery O2 Flow Rate FiO2 02/08/18 06:44 36.7 113 21 106/73 (84) 93 CPAP 02/08/18 04:00 95 Room Air 21 CPAP 02/08/18 03:41 37.5 123 24 126/83 (97) 95 CPAP 02/08/18 01:22 115 95 21 02/08/18 01:02 36.4 113 24 164/99 (120) 95 Room Air 02/07/18 23:30 37.3 112 22 147/85 95 Room Air 02/07/18 23:00 120 20 138/76 97 Room Air 02/07/18 21:03 120 20 144/71 97 Room Air 02/07/18 19:42 110 20 137/79 96 Room Air 02/07/18 19:32 96 Room Air 02/07/18 18:45 123 02/07/18 18:24 38.5 124 16 125/82 96 Room Air Physical Exam General Appearance: WD/WN, no apparent distress, + pertinent finding ( diaphoretic) Eyes: normal inspection, EOMI ENT: normal ENT inspection Neck: supple, no adenopathy, no JVD Respiratory/Chest: lungs clear, no respiratory distress Cardiovascular: no JVD, no murmur, + tachycardia Abdomen: normal bowel sounds, soft, no organomegaly, + pertinent finding (no tenderness to palpation) Extremities: non-tender, no pedal edema Neurologic/Psychiatric: + pertinent finding (asleep; severe dementia) Laboratory Results Last 24 Hours Test 02/07/18 18:51 02/07/18 19:01 02/07/18 19:43 02/07/18 23:00 White Blood Count 23.27 K/uL Red Blood Count 3.87 M/uL Hemoglobin 11.7 g/dL Hematocrit 34.5 % Mean Corpuscular Volume 89.1 fL Mean Corpuscular Hemoglobin 30.2 pg Mean Corpuscular Hemoglobin Concent 33.9 g/dl Platelet Count 233 K/uL Mean Platelet Volume 11.3 fL Neutrophils (%) (Auto) 87.5 % Lymphocytes (%) (Auto) 3.9 % Monocytes (%) (Auto) 8.0 % Eosinophils (%) (Auto) 0.1 % Basophils (%) (Auto) 0.1 % Neutrophils # (Auto) 20.38 K/uL Lymphocytes # (Auto) 0.90 K/uL Monocytes # (Auto) 1.85 K/uL Eosinophils # (Auto) 0.02 K/uL Basophils # (Auto) 0.02 K/uL RDW Standard Deviation 48.6 fL RDW Coefficient of Variation 14.9 % Immature Granulocyte % (Auto) 0.4 % Immature Granulocyte # (Auto) 0.10 K/uL Prothrombin Time 12.0 SECONDS Prothromb Time International Ratio 1.1 Sodium Level 135 mmol/L Potassium Level 3.7 mmol/L Chloride Level 104 mmol/L Carbon Dioxide Level 25 mmol/L Anion Gap 6.0 mmol/L Blood Urea Nitrogen 11 mg/dl Creatinine 0.71 mg/dl Estimated GFR () 99.3 Estimated GFR (Non- 85.7 BUN/Creatinine Ratio 15.8 Random Glucose 111 mg/dl Calcium Level 8.4 mg/dl Phosphorus Level 2.7 mg/dl Magnesium Level 1.8 mg/dl Total Bilirubin 0.5 mg/dl Direct Bilirubin mg/dl Aspartate Amino Transf (AST/SGOT) 22 U/L Alanine Aminotransferase (ALT/SGPT) 22 U/L Alkaline Phosphatase 86 U/L Troponin I < 0.015 ng/ml Total Protein 6.8 gm/dl Albumin 2.9 gm/dl Lipase 531 U/L Thyroid Stimulating Hormone (TSH) 0.275 uIu/ml Free Thyroxine 1.32 ng/dl Chemistry Specimen Hemolysis Bedside Lactic Acid Venous 1.74 mmol/L Venous Blood pH 7.44 Venous Blood Partial Pressure CO2 42 mmHg Venous Blood Partial Pressure O2 29 mmHg Venous Blood HCO3 28 mmol/L Venous Blood Oxygen Saturation < 60.0 % Venous Blood Base Excess 3.4 mEq/L Lactic Acid Level 1.2 mmol/L Urine Color YELLOW Urine Appearance CLEAR Urine pH 6.0 Urine Specific [place] 1.028 Urine Protein NEG Urine Glucose (UA) NEG Urine Ketones NEG Urine Occult Blood NEG Urine Nitrite NEG Urine Bilirubin NEG Urine Urobilinogen NEG Urine Leukocyte Esterase NEG Urine WBC (Auto) 0 /hpf Urine RBC (Auto) 0-4 /hpf Urine Hyaline Casts (Auto) 1-5 /lpf Urine Epithelial Cells (Auto) 0-5 /lpf Urine Bacteria (Auto) NEG Test 02/08/18 07:52 White Blood Count 24.84 K/uL Red Blood Count 3.63 M/uL Hemoglobin 10.8 g/dL Hematocrit 32.8 % Mean Corpuscular Volume 90.4 fL Mean Corpuscular Hemoglobin 29.8 pg Mean Corpuscular Hemoglobin Concent 32.9 g/dl RDW Standard Deviation 50.1 fL RDW Coefficient of Variation 15.1 % Platelet Count 201 K/uL Mean Platelet Volume 10.8 fL Sodium Level 139 mmol/L Potassium Level 3.4 mmol/L Chloride Level 109 mmol/L Carbon Dioxide Level 24 mmol/L Anion Gap 7.0 mmol/L Blood Urea Nitrogen 8 mg/dl Creatinine 0.77 mg/dl Est Creatinine Clear Calc Drug Dose 52.7 ml/min Estimated GFR () 90.0 Estimated GFR (Non- 77.7 BUN/Creatinine Ratio 10.4 Random Glucose 124 mg/dl Lactic Acid Level 2.6 mmol/L Calcium Level 7.7 mg/dl Total Bilirubin 0.7 mg/dl Aspartate Amino Transf (AST/SGOT) 14 U/L Alanine Aminotransferase (ALT/SGPT) 16 U/L Alkaline Phosphatase 77 U/L Total Protein 5.7 gm/dl Albumin 2.3 gm/dl Globulin 3.4 gm/dl Albumin/Globulin Ratio 0.7 Assessment and Plan 72 year old female admitted for fevers since recent discharge for management of diverticulitis. Sepsis: Suspected initially due to diverticulitis but C. diff positive. Continue Flagyl IV + Start Vanco QID. Continue Cipro for today and de-escalate tomororw. Trend fever curve. WBC increased to 24 today with increased lactate to 2.4, will monitor now that C.diff is being treated. Continue with IVF and re -assess fluid status daily. Dementia: Continue with Donezepil Depression: Continue Venlafaxine Hypothyroidism: Continue Levothyroxine. TSH low at 0.275. Will hold at current dose as change now unlikely to make significant change to clinical course. Can be adjusted per PCP Hx Afib: On Xarelto. HR > 100 today but most likely due to active infection DVT: SCD, MIRZA, on Xarelto Code: Full Code Disposition: Telemetry. PT and OT consulted Resident Physician Supervision Note: I interviewed and examined the patient. Discussed with Dr. Rodríguez and agree with findings and plan as documented in the note. Any exceptions or clarifications are listed here: None Documented By: Bernardo Camilo no HPI or ROS obtainable from pt future DIL at bedside vitals noted nad breathing unlabored no pallor or icterus no clear abdominal tenderness definintely no gauarding or rebound sepsis - almost certainly entirely due to Cdiff - continue PO vanco, discussed treatment and recurrence risk with future DIL; agree w dr rodríguez's assessment of continuing empiric abx into tomorrow until cultures are negative otherwise as above Continued [facility] stay due to: fever, abnormal vital signs Discharge planning: uncertain
[2018-02-08 08:03] LABS: HEMATOCRIT 32.8 % (37-47); HEMOGLOBIN 10.8 g/dL (12.0-16.0); MEAN CELL VOLUME 90.4 fL (80-100); MEAN CORPUSCULAR HEMOGLOBIN 29.8 pg (25-34); MEAN CORPUSCULAR HGB CONC 32.9 g/dl (32-36); MEAN PLATELET VOLUME 10.8 fL (7.4-10.4); PLATELET COUNT 201 K/uL (130-400); RED CELL DISTRIBUTION WIDTH CV 15.1 % (11.5-14.5); RED CELL DISTRIBUTION WIDTH SD 50.1 fL (36.4-46.3); WHITE BLOOD COUNT 24.84 K/uL (4.8-10.8)
[2018-02-08] MEDS: DONEPEZIL HCL 10 MG TAB PO SCH (08:16)
[2018-02-08] MEDS: VENLAFAXINE HCL XR 75 MG CAPXR PO SCH (08:16)
[2018-02-08] MEDS: LISINOPRIL 10 MG TAB PO SCH (08:16)
[2018-02-08] MEDS: MEMANTINE 10 MG TAB PO SCH ×2 (08:16→21:48)
[2018-02-08] MEDS: ASPIRIN 81 MG ECTAB PO SCH (08:17)
[2018-02-08] MEDS: RIVAROXABAN 10 MG TAB PO SCH (08:17)
[2018-02-08] MEDS: VENLAFAXINE HCL XR 37.5 MG CAPXR PO SCH (08:17)
[2018-02-08 08:31] LABS: ALBUMIN 2.3 gm/dl (3.4-5.0); CALCIUM 7.7 mg/dl (8.5-10.1); CREATININE 0.77 mg/dl (0.60-1.20); POTASSIUM 3.4 mmol/L (3.5-5.1)
[2018-02-08 08:34] LABS: TOTAL PROTEIN 5.7 gm/dl (6.4-8.2)
[2018-02-08] MEDS ORDERED: SODIUM CHLORIDE 0.9% 500ML 500 ML IV ONE (08:45)
[2018-02-08] MEDS: RASPBERRY SYRUP 5 ML UDP PO SCH ×3 (09:34→21:47)
[2018-02-08] MEDS: VANCOMYCIN HCL 250 MG/5 ML SOLN PO SCH ×3 (09:34→21:47)
[2018-02-08] MEDS ORDERED: NON-FORMULARY MEDICATION (Melatonin 1 MG) PO SCH (21:00)
[2018-02-09 00:08] VITALS: BP 131/77; PULSE 105; TEMP 36.8; O2SAT 98
[2018-02-09] MEDS: RASPBERRY SYRUP 5 ML UDP PO SCH ×4 (04:29→20:43)
[2018-02-09] MEDS: VANCOMYCIN HCL 250 MG/5 ML SOLN PO SCH ×4 (04:29→20:43)
[2018-02-09] MEDS: CIPROFLOXACIN / D5W 400 MG in PREMIXED IN D5W 200 ML IV SCH (04:29)
[2018-02-09 04:35] VITALS: BP 141/79; PULSE 107; TEMP 37; O2SAT 96
[2018-02-09 05:57] LABS: BASO % 0.1 %; BASO ABS # 0.02 K/uL (0-0.2); EOS % 0.4 %; EOS ABS # 0.08 K/uL (0-0.5); HEMATOCRIT 29.2 % (37-47); HEMOGLOBIN 9.9 g/dL (12.0-16.0); LYMPH % 6.5 %; MEAN CELL VOLUME 90.4 fL (80-100); MEAN CORPUSCULAR HEMOGLOBIN 30.7 pg (25-34); MEAN CORPUSCULAR HGB CONC 33.9 g/dl (32-36); MEAN PLATELET VOLUME 11.1 fL (7.4-10.4); MONO % 10.9 %; MONO ABS # 2.01 K/uL (0.11-0.59); NEUT % 81.6 %; PLATELET COUNT 165 K/uL (130-400); RED CELL DISTRIBUTION WIDTH CV 15.3 % (11.5-14.5); RED CELL DISTRIBUTION WIDTH SD 50.6 fL (36.4-46.3); WHITE BLOOD COUNT 18.41 K/uL (4.8-10.8)
[2018-02-09 06:24] LABS: CREATININE 0.81 mg/dl (0.60-1.20); POTASSIUM 3.1 mmol/L (3.5-5.1)
[2018-02-09] MEDS: LEVOTHYROXINE 75 MCG TAB PO SCH (06:40)
[2018-02-09] MEDS: METRONIDAZOLE / NSS 500 MG in PREMIXED NSS 100 ML IV SCH ×3 (06:40→20:43)
[2018-02-09 07:01] VITALS: BP 131/75; PULSE 105; TEMP 36.7; O2SAT 97
[2018-02-09] MEDS: POTASSIUM CHLORIDE 20 MEQ/15 ML UDC PO SCH ×2 (08:17→20:46)
[2018-02-09] MEDS: VENLAFAXINE HCL XR 37.5 MG CAPXR PO SCH (08:20)
[2018-02-09] MEDS: CHOLECALCIFEROL 1000 INTER.UNIT TAB PO SCH (08:21)
[2018-02-09] MEDS: LISINOPRIL 10 MG TAB PO SCH (08:21)
[2018-02-09] MEDS: MEMANTINE 10 MG TAB PO SCH ×2 (08:21→20:48)
[2018-02-09] MEDS: VENLAFAXINE HCL XR 75 MG CAPXR PO SCH (08:22)
[2018-02-09] MEDS: ASPIRIN 81 MG ECTAB PO SCH (08:22)
[2018-02-09] MEDS: DONEPEZIL HCL 10 MG TAB PO SCH (08:23)
[2018-02-09] MEDS: RIVAROXABAN 10 MG TAB PO SCH (08:23)
[2018-02-09] MEDS: SODIUM CHLORIDE 0.9% 1000ML 1,000 ML IV SCH ×2 (08:33→19:12)
--- NOTE | 2018-02-09 09:40 | Family Medicine Progress Note ---
Progress Note Date of Service February 09, 2018. Subjective Pt evaluation today including: conversation w/ patient, conversation w/ family (daughter and soon to be [id number]), physical exam, chart review, lab review Pain: None Doing better today Ate breakfast No issues overnight Daughter-in law thinks she looks better than when she came in No nursing concerns noted Additional Comments: A 10 point review of systems was negative unless stated above. Medications Current Inpatient Medications Medications (Trade) Dose Ordered Sig/Fang Route Start Time Stop Time Status Last Admin Dose Admin Ioversol (Optiray 320) 100 ml UD PRN IV 02/07/18 19:30 02/11/18 19:29 Sodium Chloride 1,000 ml @ 100 mls/hr Q10H IV 02/08/18 02:00 03/10/18 01:59 02/09/18 08:33 100 MLS/HR Acetaminophen (Tylenol Tab) 650 mg Q4H PRN PO 02/07/18 22:45 03/09/18 22:44 02/08/18 21:47 650 MG Magnesium Hydroxide (Milk Of Magnesia Susp) 30 ml Q12H PRN PO 02/07/18 22:45 03/09/18 22:44 Ondansetron HCl (Zofran Inj) 4 mg Q6H PRN IV 02/07/18 22:45 03/09/18 22:44 Polyethylene (Miralax Powder Packet) 17 gm DAILY PRN PO 02/07/18 22:45 03/09/18 22:44 Aspirin (Ecotrin Tab) 81 mg QAM PO 02/08/18 09:00 03/10/18 08:59 02/09/18 08:22 81 MG Buspirone HCl (Buspar Tab) 5 mg BID PRN PO 02/07/18 22:45 03/09/18 22:44 Cholecalciferol (Vitamin D Tab) 1,000 inter.unit QAM PO 02/08/18 09:00 03/10/18 08:59 02/09/18 08:21 1,000 INTER.UNIT Levothyroxine Sodium (Synthroid Tab) 75 mcg DAILYBB PO 02/08/18 06:00 03/10/18 05:59 02/09/18 06:40 75 MCG Lisinopril (Zestril Tab) 10 mg QAM PO 02/08/18 09:00 6/4/18 08:59 02/09/18 08:21 10 MG Memantine (Namenda Tab) 10 mg BID PO 02/08/18 09:00 03/10/18 08:59 02/09/18 08:21 10 MG Rivaroxaban (Xarelto Tab) 20 mg QAM PO 02/08/18 09:00 03/10/18 08:59 02/09/18 08:23 20 MG Simvastatin (Zocor Tab) 20 mg QPM PO 02/08/18 21:00 03/10/18 20:59 02/08/18 21:48 20 MG Venlafaxine HCl (effeXOR EXTENDED REL CAP) 37.5 mg QAM PO 02/08/18 09:00 03/10/18 08:59 02/09/18 08:20 37.5 MG Venlafaxine HCl (effeXOR EXTENDED REL CAP) 75 mg QAM PO 02/08/18 09:00 03/10/18 08:59 02/09/18 08:22 75 MG Donepezil HCl (Aricept Tab) 10 mg QAM PO 02/08/18 09:00 03/10/18 08:59 02/09/18 08:23 10 MG Ciprofloxacin/ Dextrose 400 mg/ Prmx 200 ml @ 100 mls/hr Q12H IV 02/08/18 04:00 02/18/18 03:59 02/09/18 04:29 100 MLS/HR Metronidazole 500 mg/Prmx 100 ml @ 100 mls/hr Q8H IV 02/08/18 06:00 02/18/18 05:59 02/09/18 06:40 100 MLS/HR Miscellaneous (Iv Fluids Completed) 1 ea PRN PRN N/A 02/07/18 23:15 02/07/19 23:14 Vancomycin HCl (Vancomycin Oral Soln) 250 mg Q6H PO 02/08/18 09:00 02/22/18 08:59 02/09/18 08:18 250 MG Raspberry (Raspberry Syrup 5ml Cup) 5 ml Q6H PO 02/08/18 09:00 02/22/18 08:59 02/09/18 08:18 5 ML Potassium Chloride (Evelina Ciel Elix) 40 meq BID PO 02/09/18 09:00 02/09/18 21:01 02/09/18 08:17 40 MEQ Objective Vital Signs Date Time Temp Pulse Resp B/P (MAP) Pulse Ox O2 Delivery O2 Flow Rate FiO2 02/09/18 07:01 36.7 105 22 131/75 (93) 97 Room Air 02/09/18 04:35 37.0 107 22 141/79 (99) 96 Room Air 02/09/18 04:00 Room Air 02/09/18 00:08 36.8 105 22 131/77 (95) 98 CPAP 02/08/18 23:59 Room Air 02/08/18 23:38 120 94 21 02/08/18 20:01 37.3 130 24 114/63 (80) 94 Room Air 02/08/18 20:00 Room Air 02/08/18 16:36 36.9 111 18 126/70 (88) 96 Room Air 02/08/18 16:00 Room Air 02/08/18 12:00 Room Air 02/08/18 11:30 36.9 112 20 120/65 (83) 95 Room Air Physical Exam General Appearance: WD/WN, no apparent distress Eyes: normal inspection, EOMI ENT: normal ENT inspection, hearing grossly normal, pharynx normal Neck: supple, no adenopathy, no JVD Respiratory/Chest: chest non-tender, normal breath sounds, no respiratory distress Cardiovascular: regular rate, rhythm, no gallop, no murmur, + tachycardia Abdomen: normal bowel sounds, non tender, soft Extremities: non-tender, no pedal edema Neurologic/Psychiatric: alert, normal mood/affect Skin: normal color, warm/dry, no rash Lymphatic: no adenopathy Laboratory Results Last 24 Hours Test 02/09/18 05:23 White Blood Count 18.41 K/uL Red Blood Count 3.23 M/uL Hemoglobin 9.9 g/dL Hematocrit 29.2 % Mean Corpuscular Volume 90.4 fL Mean Corpuscular Hemoglobin 30.7 pg Mean Corpuscular Hemoglobin Concent 33.9 g/dl Platelet Count 165 K/uL Mean Platelet Volume 11.1 fL Neutrophils (%) (Auto) 81.6 % Lymphocytes (%) (Auto) 6.5 % Monocytes (%) (Auto) 10.9 % Eosinophils (%) (Auto) 0.4 % Basophils (%) (Auto) 0.1 % Neutrophils # (Auto) 15.00 K/uL Lymphocytes # (Auto) 1.20 K/uL Monocytes # (Auto) 2.01 K/uL Eosinophils # (Auto) 0.08 K/uL Basophils # (Auto) 0.02 K/uL RDW Standard Deviation 50.6 fL RDW Coefficient of Variation 15.3 % Immature Granulocyte % (Auto) 0.5 % Immature Granulocyte # (Auto) 0.10 K/uL Sodium Level 139 mmol/L Potassium Level 3.1 mmol/L Chloride Level 111 mmol/L Carbon Dioxide Level 24 mmol/L Anion Gap 4.0 mmol/L Blood Urea Nitrogen 7 mg/dl Creatinine 0.81 mg/dl Est Creatinine Clear Calc Drug Dose 50.1 ml/min Estimated GFR () 84.7 Estimated GFR (Non- 73.1 BUN/Creatinine Ratio 8.8 Random Glucose 122 mg/dl Calcium Level 8.0 mg/dl Assessment and Plan 72 year old female admitted for fevers since recent discharge for management of C. difficile Sepsis from C.difficile infection: Afebrile overnight, clinically appearing better. Appetite improved with good intake this morning. WBC improved from 24 to 18 today Unlikely to be diverticulitis; will D/C Cipro. Keep Flagyl on for C.diff treatment Continue IV Flagyl and PO Vanco. Day 2 of total 14 day course Repeat lactate level with AM labs Tachycardia: regularly regular, improved today to low 100s. Consistent with infectious picture. Continue telemetry monitoring Dementia: Continue with Donezepil Depression: Continue Venlafaxine Hypothyroidism: Continue Levothyroxine. Hx Afib: On Xarelto. Regular [place] today. Likely consistent with infectious picture. DVT: SCD, MIRZA, on Xarelto Code: Full Code Disposition: Telemetry. PT and OT consulted. Resident Physician Supervision Note: I interviewed and examined the patient. Discussed with Dr. Parry and agree with findings and plan as documented in the note. Any exceptions or clarifications are listed here: None Documented By: Bernardo Camilo no HPI or ROS obtainable from pt son and dtr present - updated vitals noted nad breathing unlabored no pallor or icterus sepsis - almost certainly entirely due to Cdiff - continue PO vanco, discussed treatment and recurrence risk with future DIL; definitely safe to stop empiric quinolone. hopefully as HR continues to improve can move to med surg later today or tomorrow. family notes plan is still to go home after discharge otherwise as above Continued [facility] stay due to: abnormal vital signs Discharge planning: uncertain
[2018-02-09 11:40] VITALS: BP 142/79; PULSE 104; TEMP 37.2; O2SAT 97
[2018-02-09 16:47] VITALS: BP 151/83; PULSE 110; TEMP 36.7; O2SAT 97
[2018-02-09 19:53] VITALS: BP 129/77; PULSE 105; TEMP 36.7; O2SAT 96
[2018-02-09] MEDS: SIMVASTATIN 20 MG TAB PO SCH (20:48)
[2018-02-10] VITALS (8 sets, daily range): BP systolic 132–173; BP diastolic 80–95; PULSE 98–109; TEMP 36.6–37.1; O2SAT 92–97; Ht 152.4 cm; Wt 57.4 kg
[2018-02-10] MEDS: VANCOMYCIN HCL 250 MG/5 ML SOLN PO SCH ×4 (04:22→20:51)
[2018-02-10] MEDS: RASPBERRY SYRUP 5 ML UDP PO SCH ×4 (04:23→20:48)
[2018-02-10] MEDS: LEVOTHYROXINE 75 MCG TAB PO SCH (04:23)
[2018-02-10] MEDS: SODIUM CHLORIDE 0.9% 1000ML 1,000 ML IV SCH (06:10)
[2018-02-10] MEDS: METRONIDAZOLE / NSS 500 MG in PREMIXED NSS 100 ML IV SCH ×3 (06:10→22:03)
--- NOTE | 2018-02-10 06:51 | Family Medicine Progress Note ---
Progress Note Date of Service February 10, 2018. Subjective Spoke at length with pt's daily caregiver who states activity-mcelroy she is really not back to baseline, especially since before her last admission for acute diverticulitis earlier last month. Pt states she is less conversational too. This morning she complains of swelling in her left forearm where an IV site used to be. Is severely demented and not very conversant however denies chest pain, difficulty breathing, abdominal pain or diarrhea, or pain in lower extremities. ROS See HPI for pertinent positives and negatives. Objective Physical Exam Notes: GENERAL: Awake, in no distress. Stares at floor, responds to questions with one or two words. HENT: Normocephalic, atraumatic. EYES: Normal conjunctiva. Sclera non-icteric. NECK: Supple. FROM. RESPIRATORY: Clear to auscultation. CARDIAC: Regular rate, tachycardia noted. Extremities warm and well perfused. Pulses equal. ABDOMEN: Soft, non-distended. No tenderness to palpation. No rebound or guarding. No masses. EXTREMITIES: Calves are equal size bilaterally and non-tender. Edema in left forearm. Nontender there. No discoloration. NEURO: No motor deficits noted. SKIN: No rash or jaundice noted. Assessment and Plan 72 year old female admitted for fevers since recent discharge for management of C. difficile 1. Sepsis from C.difficile infection: WBC improving Urine and blood cultures negative. Continue IV Flagyl and PO Vanco. Day 3 of total 14 day course Repeat lactate level with AM labs this morning is normalized. 2. Tachycardia - likely sec to dehydration regularly regular, improved to low 100s. Consistent with infectious picture. Continue telemetry monitoring # At risk for decubitus ulcer - Nurse aware. Monitor. Consider changing mattress. 3. Dementia: Continue with Donezepil 4. Depression: Continue Venlafaxine 5. Hypothyroidism: Continue Levothyroxine. 6. Hx Afib: On Xarelto. Regular Tachycardia today. Likely consistent with infectious picture. DVT: SCD, MIRZA, on Xarelto Code: Full Code Disposition: Transfer to med/surg. PT and OT consulted. Current Inpatient Medications Medications (Trade) Dose Ordered Sig/Fang Route Start Time Stop Time Status Last Admin Dose Admin Ioversol (Optiray 320) 100 ml UD PRN IV 02/07/18 19:30 02/11/18 19:29 Acetaminophen (Tylenol Tab) 650 mg Q4H PRN PO 02/07/18 22:45 03/09/18 22:44 02/08/18 21:47 650 MG Magnesium Hydroxide (Milk Of Magnesia Susp) 30 ml Q12H PRN PO 02/07/18 22:45 03/09/18 22:44 Ondansetron HCl (Zofran Inj) 4 mg Q6H PRN IV 02/07/18 22:45 03/09/18 22:44 Polyethylene (Miralax Powder Packet) 17 gm DAILY PRN PO 02/07/18 22:45 03/09/18 22:44 Aspirin (Ecotrin Tab) 81 mg QAM PO 02/08/18 09:00 03/10/18 08:59 02/10/18 07:41 81 MG Buspirone HCl (Buspar Tab) 5 mg BID PRN PO 02/07/18 22:45 03/09/18 22:44 Cholecalciferol (Vitamin D Tab) 1,000 inter.unit QAM PO 02/08/18 09:00 03/10/18 08:59 02/10/18 07:40 1,000 INTER.UNIT Levothyroxine Sodium (Synthroid Tab) 75 mcg DAILYBB PO 02/08/18 06:00 03/10/18 05:59 02/10/18 04:23 75 MCG Lisinopril (Zestril Tab) 10 mg QAM PO 02/08/18 09:00 03/10/18 08:59 02/10/18 07:41 10 MG Memantine (Namenda Tab) 10 mg BID PO 02/08/18 09:00 03/10/18 08:59 02/10/18 07:40 10 MG Rivaroxaban (Xarelto Tab) 20 mg QAM PO 02/08/18 09:00 03/10/18 08:59 02/10/18 07:41 20 MG Simvastatin (Zocor Tab) 20 mg QPM PO 02/08/18 21:00 03/10/18 20:59 02/09/18 20:48 20 MG Venlafaxine HCl (effeXOR EXTENDED REL CAP) 37.5 mg QAM PO 02/08/18 09:00 03/10/18 08:59 02/10/18 07:40 37.5 MG Venlafaxine HCl (effeXOR EXTENDED REL CAP) 75 mg QAM PO 02/08/18 09:00 03/10/18 08:59 02/10/18 07:41 75 MG Donepezil HCl (Aricept Tab) 10 mg QAM PO 02/08/18 09:00 03/10/18 08:59 02/10/18 07:40 10 MG Metronidazole 500 mg/Prmx 100 ml @ 100 mls/hr Q8H IV 02/08/18 06:00 02/18/18 05:59 02/10/18 14:22 100 MLS/HR Miscellaneous (Iv Fluids Completed) 1 ea PRN PRN N/A 02/07/18 23:15 02/07/19 23:14 Vancomycin HCl (Vancomycin Oral Soln) 250 mg Q6H PO 02/08/18 09:00 02/22/18 08:59 02/10/18 16:39 250 MG Raspberry (Raspberry Syrup 5ml Cup) 5 ml Q6H PO 02/08/18 09:00 02/22/18 08:59 02/10/18 16:39 5 ML Sodium Chloride 1,000 ml @ 100 mls/hr Q10H IV 02/10/18 13:15 03/10/18 01:59 Date Time Temp Pulse Resp B/P (MAP) Pulse Ox O2 Delivery O2 Flow Rate FiO2 02/10/18 16:05 36.6 98 18 151/80 (103) 96 Room Air 02/10/18 16:00 Room Air 02/10/18 14:37 36.8 99 18 159/94 (115) 97 Room Air 02/10/18 14:19 36.8 109 15 96 02/10/18 12:00 Room Air 02/10/18 11:21 36.8 109 15 173/94 (120) 96 Room Air 02/10/18 08:00 Room Air 02/10/18 07:30 37.1 106 20 151/91 (111) 95 Room Air 02/10/18 04:28 36.6 108 16 163/95 (117) 97 Room Air 02/10/18 04:00 Room Air 02/10/18 00:27 36.7 109 19 160/93 (115) 92 Room Air 02/09/18 23:59 Room Air 02/09/18 20:00 Room Air 02/09/18 19:53 36.7 105 22 129/77 (94) 96 Room Air Last Resulted 02/10/18 06:28 Red Blood Count 3.38, Mean Corpuscular Volume 88.2, Mean Corpuscular Hemoglobin 30.2, Mean Corpuscular Hemoglobin Concent 34.2, Mean Platelet Volume 10.9, Neutrophils (%) (Auto) 77.7, Lymphocytes (%) (Auto) 11.5, Monocytes (%) (Auto) 9.5, Eosinophils (%) (Auto) 0.8, Basophils (%) (Auto) 0.1, Neutrophils # (Auto) 11.99, Lymphocytes # (Auto) 1.78, Monocytes # (Auto) 1.46, Eosinophils # (Auto) 0.13, Basophils # (Auto) 0.02 Last Resulted 02/10/18 06:44 Continued [facility] stay due to: multiple IV medications needed Discharge planning: home Resident Tracking Resident Involvement: Resident Care Provided Care Provided: Adult Hospital Medicine Reviewed: Pt Seen/Exam by Me History c/o having pain in her bottom Constitutional: denies: fever Respiratory: negative: short of breath Cardiovascular: denies chest pain General Appearance: mild distress Respiratory: lungs clear, no respiratory distress Cardiovascular: regular rate, rhythm Neurologic/Psychiatric: alert, oriented x 3 Skin Characteristics: warm/dry Assessment/Plan Resident Physician Supervision Note: I independently interviewed and examined the patient and verified the draper history and physical, reviewed labs and image studies, discussed the case with the resident Dr. Lewis and agree with the findings and care plan.
[2018-02-10 06:54] LABS: BASO % 0.1 %; BASO ABS # 0.02 K/uL (0-0.2); EOS % 0.8 %; EOS ABS # 0.13 K/uL (0-0.5); HEMATOCRIT 29.8 % (37-47); HEMOGLOBIN 10.2 g/dL (12.0-16.0); IG# 0.06 K/uL (0.00-0.02); LYMPH % 11.5 %; LYMPH ABS # 1.78 K/uL (1.2-3.4); MEAN CELL VOLUME 88.2 fL (80-100); MEAN CORPUSCULAR HEMOGLOBIN 30.2 pg (25-34); MEAN CORPUSCULAR HGB CONC 34.2 g/dl (32-36); MEAN PLATELET VOLUME 10.9 fL (7.4-10.4); MONO % 9.5 %; MONO ABS # 1.46 K/uL (0.11-0.59); NEUT % 77.7 %; NEUT ABS # 11.99 K/uL (1.4-6.5); PLATELET COUNT 189 K/uL (130-400); RED CELL DISTRIBUTION WIDTH CV 14.8 % (11.5-14.5); WHITE BLOOD COUNT 15.44 K/uL (4.8-10.8)
[2018-02-10 07:33] LABS: CREATININE 0.49 mg/dl (0.60-1.20)
[2018-02-10 07:34] LABS: CALCIUM 7.8 mg/dl (8.5-10.1); POTASSIUM 2.9 mmol/L (3.5-5.1)
[2018-02-10] MEDS: MEMANTINE 10 MG TAB PO SCH ×2 (07:40→20:49)
[2018-02-10] MEDS: VENLAFAXINE HCL XR 37.5 MG CAPXR PO SCH (07:40)
[2018-02-10] MEDS: CHOLECALCIFEROL 1000 INTER.UNIT TAB PO SCH (07:40)
[2018-02-10] MEDS: DONEPEZIL HCL 10 MG TAB PO SCH (07:40)
[2018-02-10] MEDS: ASPIRIN 81 MG ECTAB PO SCH (07:41)
[2018-02-10] MEDS: RIVAROXABAN 10 MG TAB PO SCH (07:41)
[2018-02-10] MEDS: VENLAFAXINE HCL XR 75 MG CAPXR PO SCH (07:41)
[2018-02-10] MEDS: LISINOPRIL 10 MG TAB PO SCH (07:41)
[2018-02-10] MEDS ORDERED: POTASSIUM CHLORIDE 20 MEQ TABCR PO STA (07:53)
[2018-02-10] MEDS ORDERED: SODIUM CHLORIDE 0.9% 1000ML 1,000 ML IV SCH (13:15)
[2018-02-10] MEDS: SIMVASTATIN 20 MG TAB PO SCH (20:48)
[2018-02-11] VITALS: BP 144/92; PULSE 96; TEMP 36.5; O2SAT 96
[2018-02-11] MEDS: RASPBERRY SYRUP 5 ML UDP PO SCH ×4 (03:12→21:26)
[2018-02-11] MEDS: VANCOMYCIN HCL 250 MG/5 ML SOLN PO SCH ×4 (03:13→21:26)
[2018-02-11] MEDS: LEVOTHYROXINE 75 MCG TAB PO SCH (05:38)
[2018-02-11] MEDS: METRONIDAZOLE / NSS 500 MG in PREMIXED NSS 100 ML IV SCH (05:43)
[2018-02-11 06:11] LABS: BASO % 0.3 %; BASO ABS # 0.03 K/uL (0-0.2); EOS % 1.8 %; HEMATOCRIT 32.8 % (37-47); IG# 0.05 K/uL (0.00-0.02); LYMPH % 19.3 %; LYMPH ABS # 2.13 K/uL (1.2-3.4); MEAN CELL VOLUME 89.1 fL (80-100); MEAN CORPUSCULAR HEMOGLOBIN 29.9 pg (25-34); MEAN CORPUSCULAR HGB CONC 33.5 g/dl (32-36); MEAN PLATELET VOLUME 10.8 fL (7.4-10.4); MONO % 12.2 %; MONO ABS # 1.35 K/uL (0.11-0.59); NEUT % 65.9 %; NEUT ABS # 7.28 K/uL (1.4-6.5); PLATELET COUNT 238 K/uL (130-400); RED CELL DISTRIBUTION WIDTH CV 14.9 % (11.5-14.5); RED CELL DISTRIBUTION WIDTH SD 48.9 fL (36.4-46.3); WHITE BLOOD COUNT 11.04 K/uL (4.8-10.8)
[2018-02-11 06:42] LABS: CALCIUM 8.1 mg/dl (8.5-10.1); CREATININE 0.61 mg/dl (0.60-1.20)
[2018-02-11] MEDS ORDERED: POTASSIUM CHLORIDE 20 MEQ TABCR PO STA (07:04)
[2018-02-11 07:39] VITALS: BP 148/93; PULSE 95; TEMP 36.6; O2SAT 98
[2018-02-11] MEDS: RIVAROXABAN 10 MG TAB PO SCH (08:40)
[2018-02-11] MEDS: ASPIRIN 81 MG ECTAB PO SCH (08:40)
[2018-02-11] MEDS: LISINOPRIL 10 MG TAB PO SCH (08:40)
[2018-02-11] MEDS: VENLAFAXINE HCL XR 37.5 MG CAPXR PO SCH (08:40)
[2018-02-11] MEDS: MEMANTINE 10 MG TAB PO SCH ×2 (08:40→21:27)
[2018-02-11] MEDS: VENLAFAXINE HCL XR 75 MG CAPXR PO SCH (08:40)
[2018-02-11] MEDS: DONEPEZIL HCL 10 MG TAB PO SCH (08:41)
[2018-02-11] MEDS: CHOLECALCIFEROL 1000 INTER.UNIT TAB PO SCH (08:41)
--- NOTE | 2018-02-11 15:23 | Family Medicine Progress Note ---
Progress Note Date of Service February 11, 2018. Subjective Per nursing no acute events overnight, has begun to have soft stools since yesterday. Pt currently denies abdominal pain at this time. Is eating well with no nausea or emesis evident. Pt has tolerated IV flagyl and PO vanc thus far, white count is improving and she remains afebrile since day of admission. Discussed with caregiver regarding possible discharge today, also discussed with son on phone. There are some concerns with being able to transfer her from bed to commode. Pt denies chest pain or difficulty breathing, is comfortable in chair. ROS See HPI for pertinent positives and negatives. Objective Physical Exam Notes: GENERAL: Awake, in no distress. Stares at floor, responds to questions with one or two words. HENT: Normocephalic, atraumatic. EYES: Normal conjunctiva. Sclera non-icteric. NECK: Supple. FROM. RESPIRATORY: Clear to auscultation. CARDIAC: Regular rate, tachycardia noted. Extremities warm and well perfused. Pulses equal. ABDOMEN: Soft, non-distended. No tenderness to palpation. No rebound or guarding. No masses. EXTREMITIES: Calves are equal size bilaterally and non-tender. Edema in left forearm improving. Nontender there. No discoloration. NEURO: No motor deficits noted. SKIN: No rash or jaundice noted. Assessment and Plan 72 year old female admitted for fevers since recent discharge for management of C. difficile 1. Sepsis from C.difficile infection: WBC improving Urine and blood cultures negative. Day 4 of IV Flagyl and PO Vanco. DC IV flagyl given clinical improvement. Day 4 of total 10 day course 2. Tachycardia - likely sec to dehydration regularly regular, improved to high 90s. Consistent with infectious picture. Continue telemetry monitoring 3. At risk for decubitus ulcer - Nurse aware. Monitor. Consider changing mattress. 4. Dementia: Continue with Donezepil 5. Depression: Continue Venlafaxine 6. Hypothyroidism: Continue Levothyroxine. 7. Hx Afib: On Xarelto. Regular Tachycardia today. Likely consistent with infectious picture. DVT: SCD, MIRZA, on Xarelto Code: Full Code Disposition: Med/surg. PT and OT consulted. Will need home PT as family is averse to inpatient PT due to prior poor experience. Current Inpatient Medications Medications (Trade) Dose Ordered Sig/Fang Route Start Time Stop Time Status Last Admin Dose Admin Ioversol (Optiray 320) 100 ml UD PRN IV 02/07/18 19:30 02/11/18 19:29 Acetaminophen (Tylenol Tab) 650 mg Q4H PRN PO 02/07/18 22:45 03/09/18 22:44 02/08/18 21:47 650 MG Magnesium Hydroxide (Milk Of Magnesia Susp) 30 ml Q12H PRN PO 02/07/18 22:45 03/09/18 22:44 Ondansetron HCl (Zofran Inj) 4 mg Q6H PRN IV 02/07/18 22:45 03/09/18 22:44 Polyethylene (Miralax Powder Packet) 17 gm DAILY PRN PO 02/07/18 22:45 03/09/18 22:44 Aspirin (Ecotrin Tab) 81 mg QAM PO 02/08/18 09:00 03/10/18 08:59 02/11/18 08:40 81 MG Buspirone HCl (Buspar Tab) 5 mg BID PRN PO 02/07/18 22:45 03/09/18 22:44 Cholecalciferol (Vitamin D Tab) 1,000 inter.unit QAM PO 02/08/18 09:00 03/10/18 08:59 02/11/18 08:41 1,000 INTER.UNIT Levothyroxine Sodium (Synthroid Tab) 75 mcg DAILYBB PO 02/08/18 06:00 03/10/18 05:59 02/11/18 05:38 75 MCG Lisinopril (Zestril Tab) 10 mg QAM PO 02/08/18 09:00 03/10/18 08:59 02/11/18 08:40 10 MG Memantine (Namenda Tab) 10 mg BID PO 02/08/18 09:00 03/10/18 08:59 02/11/18 08:40 10 MG Rivaroxaban (Xarelto Tab) 20 mg QAM PO 02/08/18 09:00 03/10/18 08:59 02/11/18 08:40 20 MG Simvastatin (Zocor Tab) 20 mg QPM PO 02/08/18 21:00 03/10/18 20:59 02/10/18 20:48 20 MG Venlafaxine HCl (effeXOR EXTENDED REL CAP) 37.5 mg QAM PO 02/08/18 09:00 03/10/18 08:59 02/11/18 08:40 37.5 MG Venlafaxine HCl (effeXOR EXTENDED REL CAP) 75 mg QAM PO 02/08/18 09:00 03/10/18 08:59 02/11/18 08:40 75 MG Donepezil HCl (Aricept Tab) 10 mg QAM PO 02/08/18 09:00 03/10/18 08:59 02/11/18 08:41 10 MG Miscellaneous (Iv Fluids Completed) 1 ea PRN PRN N/A 02/07/18 23:15 02/07/19 23:14 Vancomycin HCl (Vancomycin Oral Soln) 250 mg Q6H PO 02/08/18 09:00 02/22/18 08:59 02/11/18 15:04 250 MG Raspberry (Raspberry Syrup 5ml Cup) 5 ml Q6H PO 02/08/18 09:00 02/22/18 08:59 02/11/18 15:04 5 ML Potassium Chloride (Klor-Con Tab) 20 meq QAM PO 02/12/18 08:00 03/14/18 07:59 Date Time Temp Pulse Resp B/P (MAP) Pulse Ox O2 Delivery O2 Flow Rate FiO2 02/11/18 12:15 Room Air 02/11/18 07:39 36.6 95 20 148/93 (111) 98 02/11/18 00:00 36.5 96 18 144/92 (109) 96 CPAP 02/11/18 00:00 Room Air 02/10/18 22:00 94 21 02/10/18 20:00 Room Air 02/10/18 16:05 36.6 98 18 151/80 (103) 96 Room Air 02/10/18 16:00 Room Air 02/11/18 05:46 Red Blood Count 3.68, Mean Corpuscular Volume 89.1, Mean Corpuscular Hemoglobin 29.9, Mean Corpuscular Hemoglobin Concent 33.5, Mean Platelet Volume 10.8, Neutrophils (%) (Auto) 65.9, Lymphocytes (%) (Auto) 19.3, Monocytes (%) (Auto) 12.2, Eosinophils (%) (Auto) 1.8, Basophils (%) (Auto) 0.3, Neutrophils # (Auto ) 7.28, Lymphocytes # (Auto) 2.13, Monocytes # (Auto) 1.35, Eosinophils # (Auto ) 0.20, Basophils # (Auto) 0.03 02/11/18 05:46 Test 02/11/18 05:46 White Blood Count 11.04 K/uL (4.8-10.8) Red Blood Count 3.68 M/uL (4.2-5.4) Hemoglobin 11.0 g/dL (12.0-16.0) Hematocrit 32.8 % (37-47) Mean Corpuscular Volume 89.1 fL (80-100) Mean Corpuscular Hemoglobin 29.9 pg (25-34) Mean Corpuscular Hemoglobin Concent 33.5 g/dl (32-36) Platelet Count 238 K/uL (130-400) Mean Platelet Volume 10.8 fL (7.4-10.4) Neutrophils (%) (Auto) 65.9 % Lymphocytes (%) (Auto) 19.3 % Monocytes (%) (Auto) 12.2 % Eosinophils (%) (Auto) 1.8 % Basophils (%) (Auto) 0.3 % Neutrophils # (Auto) 7.28 K/uL (1.4-6.5) Lymphocytes # (Auto) 2.13 K/uL (1.2-3.4) Monocytes # (Auto) 1.35 K/uL (0.11-0.59) Eosinophils # (Auto) 0.20 K/uL (0-0.5) Basophils # (Auto) 0.03 K/uL (0-0.2) RDW Standard Deviation 48.9 fL (36.4-46.3) RDW Coefficient of Variation 14.9 % (11.5-14.5) Immature Granulocyte % (Auto) 0.5 % Immature Granulocyte # (Auto) 0.05 K/uL (0.00-0.02) Anion Gap 6.0 mmol/L (3-11) Est Creatinine Clear Calc Drug Dose 67.1 ml/min Estimated GFR () 105.7 Estimated GFR (Non- 91.2 BUN/Creatinine Ratio 17.5 (10-20) Calcium Level 8.1 mg/dl (8.5-10.1) Continued [facility] stay due to: ambulation difficulties Discharge planning: home with home health Resident Tracking Resident Involvement: Resident Care Provided Care Provided: Adult Hospital Medicine Reviewed: Pt Seen/Exam by Me History comfortably sleeping in bed. arousable. Constitutional: denies: fever Respiratory: negative: short of breath Cardiovascular: denies chest pain General Appearance: no apparent distress Respiratory: lungs clear, no respiratory distress Cardiovascular: regular rate, rhythm Neurologic/Psychiatric: other (arousable) Skin Characteristics: warm/dry Assessment/Plan Resident Physician Supervision Note: I independently interviewed and examined the patient and verified the draper history and physical, reviewed labs and image studies, discussed the case with the resident Dr. Lewis and agree with the findings and care plan.
[2018-02-11 16:00] VITALS: BP 146/90; PULSE 90; TEMP 36.5; O2SAT 98
[2018-02-11] MEDS: SIMVASTATIN 20 MG TAB PO SCH (21:27)
[2018-02-11 22:04] VITALS: PULSE 87; O2SAT 98
[2018-02-11 23:28] VITALS: BP 163/102; PULSE 97; TEMP 36.9; O2SAT 97
[2018-02-12] MEDS: VANCOMYCIN HCL 250 MG/5 ML SOLN PO SCH ×3 (03:06→15:24)
[2018-02-12] MEDS: RASPBERRY SYRUP 5 ML UDP PO SCH ×3 (03:06→15:24)
[2018-02-12 06:19] LABS: CALCIUM 8.2 mg/dl (8.5-10.1); CREATININE 0.69 mg/dl (0.60-1.20); POTASSIUM 3.3 mmol/L (3.5-5.1)
[2018-02-12] MEDS: LEVOTHYROXINE 75 MCG TAB PO SCH (06:46)
[2018-02-12 07:18] VITALS: BP 161/90; PULSE 87; TEMP 36.4; O2SAT 97
[2018-02-12] MEDS ORDERED: POTASSIUM CHLORIDE 20 MEQ TABCR PO SCH (08:00)
[2018-02-12] MEDS: CHOLECALCIFEROL 1000 INTER.UNIT TAB PO SCH (09:05)
[2018-02-12] MEDS: DONEPEZIL HCL 10 MG TAB PO SCH (09:05)
[2018-02-12] MEDS: VENLAFAXINE HCL XR 37.5 MG CAPXR PO SCH (09:05)
[2018-02-12] MEDS: ASPIRIN 81 MG ECTAB PO SCH (09:05)
[2018-02-12] MEDS: VENLAFAXINE HCL XR 75 MG CAPXR PO SCH (09:05)
[2018-02-12] MEDS: LISINOPRIL 10 MG TAB PO SCH (09:06)
[2018-02-12] MEDS: MEMANTINE 10 MG TAB PO SCH (09:06)
[2018-02-12] MEDS: RIVAROXABAN 10 MG TAB PO SCH (09:06)
[2018-02-12 11:20] VITALS: BP 161/90; PULSE 87; TEMP 36.4; O2SAT 97
[2018-02-12] MEDS ORDERED: CHOLESTYRAMINE LIGHT 4 GM PKT PO ONE (11:24)
[2018-02-12 15:01] VITALS: BP 164/84; PULSE 99; TEMP 36.6; O2SAT 95
[2018-02-12] MEDS ORDERED: CHOL4POW11 PO (16:48)
[2018-02-12] MEDS ORDERED: VANC1SUS PO (16:48)
--- NOTE | 2018-02-12 16:55 | Discharge Instructions ---
Discharge Instructions Date of Service February 12, 2018. Admission Reason for Admission: Diverticulitis Discharge Discharge Diagnosis / Problem: C.Diff Discharge Goals Goal(s): Decrease discomfort, Improve function, Prevent Disease Progression Activity Recommendations Activity Limitations: as noted below Lifting Limitations: gradually increase as tolerated Exercise/Sports Limitations: gradually increase as tolerated May Resume Sexual Activity: when tolerated Shower/Bathe: no limitations Driving or Machine Use: no limitations . Instructions / Follow-Up Instructions / Follow-Up Please continue Vancomycin 250 mg for 6 more days We have given you Questran to help your stools become more formed. You may stop this as soon as you feel that your bowel movements are formed. Please take a probiotic or eat yogurt. Follow up with your PCP in 2-3 days If you experience any further pain, diarrhea, fevers, nausea, vomiting etc, please call your pcp or come back to the ER Current Hospital Diet Patient's current hospital diet: AHA Diet (Heart Healthy) Discharge Diet Recommended Diet: Low Sodium Diet (2gm Na) Pending Studies Studies pending at discharge: no Medical Emergencies . Who to Call and When: Medical Emergencies: If at any time you feel your situation is an emergency, please call 911 immediately. . Non-Emergent Contact Non-Emergency issues call your: Primary Care Provider . . "Provider Documentation" section prepared by Meenu Rios. .
--- NOTE | 2018-02-12 20:02 | Discharge Summary ---
Discharge Summary Date of Service February 12, 2018. Discharge Summary Admission Date: February 10, 2018 at 09:12 Discharge Date: February 12, 2018 Principal Diagnosis: Clostridium difficile colitis Problems/Secondary Diagnoses: Resolving diverticulitis Dementia Immunizations: Have You Had Influenza Vaccine: Unknown History of Tetanus Vaccine?: Unknown History of Pneumococcal: Unknown History of Hepatitis B Vaccine: Unknown Procedures: CHEST ONE VIEW PORTABLE HISTORY: 72 years-old Female Evaluate Fever/Sepsis acute fever and sepsis with weakness COMPARISON: Chest radiograph 01/20/2018 TECHNIQUE: Portable AP view of the chest FINDINGS: Cardiomediastinal and hilar silhouettes are within normal limits. Atherosclerosis of the aorta. No pneumothorax, pleural effusion, focal airspace consolidation or overt pulmonary edema. Degenerative changes of the shoulders and spine. IMPRESSION: No acute process. The above report was generated using voice recognition software. It may contain grammatical, syntax or spelling errors. Electronically signed by: Rajesh Roberts M.D. 02/07/2018 8:36 PM ABDOMEN AND PELVIS CT WITH IV CONTRAST CT DOSE: 572.16 mGycm HISTORY: Acute fever with history of recent sigmoid diverticulitis fevers, recent diverticulitis TECHNIQUE: Multiaxial CT images of the abdomen and pelvis were performed following the use of intravenous contrast. A dose lowering technique was utilized adhering to the principles of ALARA. COMPARISON STUDY: CT 01/20/2018. FINDINGS: Mild subsegmental bibasilar atelectasis. 3 mm pericardial lymph node at the left lung base. No pneumatosis or pneumoperitoneum. Imaged inferior cardiac chambers are unremarkable with coronary arterial calcifications. There is redemonstration of multiple lobulated lesions throughout the liver are slightly hypoechoic measuring up to 1.5 cm within the right hepatic lobe. These appear unchanged. No intrahepatic biliary ductal dilation. Layering gallstones are again seen within the gallbladder lumen. No CT evidence of acute cholecystitis. Indeterminate 5 mm low attenuating lesion of the inferior spleen, statistically benign. Moderate generalized pancreatic atrophy. Adrenal glands are unremarkable. External renal pelves noted bilaterally. No renal calculi or hydronephrosis. The ureters and bladder are unremarkable. Prior hysterectomy. Moderate mixed plaquing of the aorta without aneurysm. Nonenlarged periaortic lymph nodes are likely physiologic. Small sliding-type hilar hernia. Small duodenal diverticulum. No small bowel obstruction. There is moderate stool volume throughout the colon suggesting constipation. Extensive sigmoid diverticulitis with improved near complete resolution of the previously noted inflammatory changes. There is suggestion of only minimal pericolonic inflammatory stranding at the descending sigmoid junction as seen on image 319 series 3. No evidence of abscess or perforation. The appendix is fluid-filled however does not appear to be inflamed or dilated. Soft tissues are unremarkable. Bones appear intact. Severe intervertebral disc space narrowing with posterior disc osteophyte complex at L5-S1. IMPRESSION: 1. Marked improvement with near complete resolution of the inflammatory changes about the sigmoid colon compared to prior study dated 01/20/2018 suggesting resolving sigmoid diverticulitis. No evidence of perforation or abscess. 2. No bowel obstruction. 3. Moderate colonic stool formation suggests constipation. 4. Cholelithiasis without CT evidence of acute cholecystitis. 5. Small sliding-type hiatal hernia. 6. Additional findings as above. Electronically signed by: Rajesh Roberts M.D. 02/07/2018 8:57 PM Dictated Date/Time: 02/07/2018 8:46 PM Medication Reconciliation New Medications: Cholestyramine (Questran) 4 Gm Pow 1 DOSE PO DAILY for 5 Days, #20 GM Vancomycin HCl (Vancomycin HCl + Syrspend) 50 Mg/Ml Katarina 250 MG PO Q6H for 6 Days, #120 ML Continued Medications: Aspirin Enteric Coated (Ecotrin Or Generic) 81 Mg Tab 81 MG PO QAM Buspirone Hcl (Buspirone Hcl) 5 Mg Tab 5 MG PO BID PRN for Anxiety/Agitation, TAB Cholecalciferol (Vitamin D3) 1,000 Unit Tab 1000 INTER.UNIT PO QAM Donepezil Hydrochloride (Donepezil Hcl) 10 Mg Tab 10 MG PO QAM Levothyroxine Sodium (Levothyroxine Sodium) 75 Mcg Tab 75 MCG PO DAILY Lisinopril (Zestril) 10 Mg Tab 10 MG PO QAM Lorazepam (Ativan) 0.5 Mg Tab 0.5 MG PO BID PRN for Anxiety/Agitation, TAB Melatonin (Melatonin) 1 Mg Tab 1 MG PO HS Memantine Hcl (Namenda) 10 Mg Tab 10 MG PO BID Rivaroxaban (Xarelto) 20 Mg Tab 20 MG PO QAM Simvastatin (Zocor) 20 Mg Tab 20 MG PO QPM, TAB Venlafaxine Hcl (Effexor Xr) 37.5 Mg Cap 37.5 MG PO QAM, CAP TAKE ONE 37.5 MG CAPSUKLE ALONG WITH ONE 75 MG CAPSULE TO EQUAL 112.5 MG DOSE Venlafaxine Hcl (Effexor Xr) 75 Mg Cap 75 MG PO QAM, CAP TAKE ONE 75 MG CAPSUKLE ALONG WITH ONE 37.5 MG CAPSULE TO EQUAL 112.5 MG DOSE Discharge Exam Pt is stable on morning of discharge, denies any complaints at this time. Is eating her breakfast, tolerating liquids and medicine. Able to get up out of bed with assistance to commode. Caregiver at bedside. Attending discussed plan for care at length with son via phone. Answered all questions. ROS See HPI for pertinent positives and negatives. PE GENERAL: Awake, in no distress. Stares at floor, responds to questions with one or two words. HENT: Normocephalic, atraumatic. EYES: Normal conjunctiva. Sclera non-icteric. NECK: Supple. FROM. RESPIRATORY: Clear to auscultation. CARDIAC: Regular rate, tachycardia noted. Extremities warm and well perfused. Pulses equal. ABDOMEN: Soft, non-distended. No tenderness to palpation. No rebound or guarding. No masses. EXTREMITIES: Calves are equal size bilaterally and non-tender. Edema in left forearm improving. Nontender there. No discoloration. NEURO: No motor deficits noted. SKIN: No rash or jaundice noted. Hospital Course Ms. Ibarra is a 72 year old female who was recently admitted to [facility] on 01/20 for acute diverticulitis without perforation, who shortly after completing her antibiotics for this then developed excessive diarrhea. She presented with WBC 23 and pulse 120 with stable blood pressures and was readmitted - her stool was positive for c. diff infection. CT of her abd/pelvis confirmed no free air, and did also show some signs of inflamed gallbladder, however clinically pt did not complain of RUQ pain and her exam was benign regarding this. Pt was treated with IV flagyl and PO vanc, and she tolerated this well. Her stools were at first loose and plenty, but gradually became more formed albeit still quite soft and sometimes still loose, up to 4 movements per day. Pt has been tolerating po intake well here with no nausea or vomiting. Pt was discharged with PO vanc and Questran, as above, and follow up with PCP is scheduled. Recommend recheck BMP as pt did have hypokalemia during stay. Pt is well cared for at home by personal injury specialist during the day, and by her son, with whom she lives, at night. We did discuss that home PT is recommended , and pt's family agreed. Regarding chronic conditions, no med changes are recommended: Dementia: Continue with Donezepil Depression: Continue Venlafaxine Hypothyroidism: Continue Levothyroxine. Hx Afib: On Xarelto. Regular Tachycardia today. Likely consistent with infectious picture. DVT: SCD, MIRZA, on Xarelto Code: Full Code here Disposition: Med/surg. PT and OT consulted. Will need home PT as family is averse to inpatient PT due to prior poor experience. Total Time Spent: Greater than 30 minutes This includes examination of the patient, discharge planning, medication reconciliation, and communication with other providers. Discharge Instructions Please refer to the electronic Patient Visit Report (Discharge Instructions) for additional information. Additional Copies To Naomi Patterson Resident Tracking Resident Involvement: Resident Care Provided Care Provided: Adult Hospital Medicine Reviewed: Pt Seen/Exam by Me History comfortable in bed. Constitutional: denies: fever Respiratory: negative: short of breath Cardiovascular: denies chest pain General Appearance: no apparent distress Respiratory: lungs clear, no respiratory distress Cardiovascular: regular rate, rhythm Neurologic/Psychiatric: alert Skin Characteristics: warm/dry Assessment/Plan Resident Physician Supervision Note: I independently interviewed and examined the patient and verified the draper history and physical, reviewed labs and image studies, discussed the case with the resident Dr. Lewis and agree with the findings and care plan. Time spent in discharge 40 min
[2018-02-12] MEDS ORDERED: CHOLESTYRAMINE LIGHT 4 GM PKT PO SCH (22:00)
== END 2018-02-12 17:31 | disposition home health service (06) | DRG 872 ==
LOC: C.EDB 18:22 → UNDOADMOB 22:38 → C.2T 22:38 → ENRESERV 22:43 → C.2T 02-08 00:53 → C.2E 02-08 00:53 → INTOOBSV 02-10 09:09 → OBSVTOIN 02-10 09:09 → ENRESERV 02-10 13:33 → C.4E 02-10 14:31
PROVIDERS: ADMIT Family Medicine; ATTEND Family Medicine
DX: A41.9 Sepsis, unspecified organism (principal); K57.92 Diverticulitis of intestine, part unspecified, without perforation or abscess without bleeding; A04.72 Enterocolitis due to Clostridium difficile, not specified as recurrent; F03.90 Unspecified dementia, unspecified severity, without behavioral disturbance, psychotic disturbance, mood disturbance, and anxiety; Z82.49 Family history of ischemic heart disease and other diseases of the circulatory system; Z79.82 Long term (current) use of aspirin; Z86.718 Personal history of other venous thrombosis and embolism; Z86.711 Personal history of pulmonary embolism; I10 Essential (primary) hypertension; E03.9 Hypothyroidism, unspecified; F39 Unspecified mood [affective] disorder; K80.20 Calculus of gallbladder without cholecystitis without obstruction

== ENCOUNTER 2019-03-04 06:02 | Inpatient (IN) ==
--- OUTSIDE RECORDS SUMMARY | 2019-03-04 06:06 | External Medical Summary | Continuity of Care Document ---
:1945 Author Name Jagruti Cerna, Provider Address Unavailable Unavailable , Care Team Providers Name Role Phone Martin Cerna, [email or web address] [email or web address] Unavailable Unavailable Unavailable Unavailable Unavailable Problems Witnessed episode of apnea (786.03) (R06.81) Snoring (786.09) (R06.83) Fatigue (780.79) (R53.83) Mild sleep apnea (780.57) (G47.30) Nocturnal hypoxia (327.24) (G47.34) Alzheimer's dementia (331.0) (G30.9) Seizure-like activity (780.39) (R56.9) Allergies and Adverse Reactions No Known Drug Allergies (Allergy) Medications Levoxyl 75 MCG Oral Tablet; TAKE 1 TABLET DAILY. Refills: 0 Melatonin 1 MG Oral Tablet; TAKE DIRECTED. Start: 06-Aug-2017 Refills: 0 Xarelto 20 MG Oral Tablet; Take 1 tablet daily Start: 06-Aug-2017 Refills: 0 Effexor XR 75 MG Oral Capsule Extended R elease 24 Hour; TAKE 1 CAPSULE ONCE DAILY WITH FOOD. Refills: 0 Lisinopril 10 MG Oral Tablet; TAKE 1 TABLET TWICE DAILY. Start: 30-May-2018 Refills: 0 15 Tablet Bottle busPIRone HCl - 10 MG Oral Tablet; TAKE 1 TABLET TWICE DAILY . Start: 30-May-2018 Refills: 0 ZyPREXA 2.5 MG Oral Tablet; TAKE 1 TABLET DAILY. Refills: 0 Effexor 37.5 MG TABS; TAKE 1 TABLET DAILY. Refills: 0 Vitamin D3 1000 UNIT Oral Capsule; TAKE DIRECTED. Refills: 0 Simvastatin 20 MG Oral Tablet; TAKE 1 TABLET DAILY DIRECT ED. Refills: 0 Donepezil HCl - 10 MG Oral Tablet; TAKE 1 TABLET DAILY. Refills: 0 Namenda 10 MG Oral Tablet; TAKE 1 TABLET TWICE DAILY. Refills: 0 Aspirin 81 81 MG Oral Tablet Delayed Release; TAKE 1 TABLET DAILY. Refills: 0 Procedures Procedures not documented Immunizations Influenza On: Jul-2015 Family History Mother No pertinent family history (V49.89) (Z78.9) Status: Active Father No pertinent family history (V49.89) (Z78.9) Status: Active Sibling No pertinent family history (V49.89) (Z78.9) Status: Active Social History - Smoking Status Never smoker Plan of Treatment Planned Encounters Appointment; Dave Salazar M.D. Start: 29-May-2019 15:45 Requ est Planned Observations Planned Goals not documented Results No Known Results Results not documented Encounters Appointment; Larry Corona M.D. 21-Nov-2018 14:00 Encounter Diagnosis: Problem not documented Appointment; Dave Salazar M.D. 30-May-2018 15:30 Encounter Diagnosis: Problem not documented Appointment; Dave Salazar M.D. 11-Nov-2017 13:00 Encounter Diagnosis: Problem not documented Appointment; Shiloh Hayes PA-C 02-Sep-2017 16:10 Encounter Diagnosis: Problem not documented Appointment; Shiloh Hayes PA-C 06-Aug-2017 13:00 Encounter Diagnosis: Problem not documented Appointment; Dave Salazar M.D. 29-May-2019 15:45 Encounter Diagnosis: Problem not documented
--- NOTE | 2019-03-04 06:56 | Emergency Department Note ---
Entered by Ynes Chavez acting as a scribe for Alex Abdi DO History of Present Illness General Chief complaint: Vomiting Stated complaint: VOMITING IN CPAP,DIARRHEA,BLOOD IN STOOL Time Seen by Provider: 03/04/19 06:36 Source: patient and family History of Present Illness Provider complaint: vomiting Onset (ago): hour(s) 4 Location: abdomen Pain Consistency: + intermittent Maximum Pain Intensity: 0 Associated symptoms: + weakness and + other (Diarrhea, blood in stool) Treatments prior to arrival: none Patient is a 73 y/o female who presents to the emergency department for evaluation of intermittent vomiting beginning 4 hours ago. The patients son stated that the patient had vomit on her side and face that was brown in color. He notes there was also clear mucus in the patients CPAP mask. The son stated that she sat up and continued to expel the clear mucus. The son reports that the patient also soiled herself during this time. He notes that there were several episodes of diarrhea for 3 hours [employer]ERTIFIED [employer]. The son reports some blood in the stool. He stated that the patients heart rate was elevated and that she noted her stomach hurt.. The son notes that the patient was irritable and had low fluid intake yesterday. The son reports that there have been episodes of this previously but this time the patient was responding higher than baseline from previous episodes. The son also reports that the patient was sick last week with diarrhea and a fever that resolved after a day. The some also notes that the patient has had C-diff in the past and is on blood thinners. Home Medications Home Medications Medication Instructions Recorded Confirmed Type aspirin 81 mg PO QAM 08/27/18 03/04/19 History buspirone 10 mg PO BID 08/27/18 03/04/19 History cholecalciferol (vitamin D3) 1,000 unit PO DAILY 08/27/18 03/04/19 History [Vitamin D3] donepezil 10 mg PO QAM 08/27/18 03/04/19 History levothyroxine 75 mcg PO QAM 08/27/18 03/04/19 History lisinopril 20 mg PO BID 08/27/18 03/04/19 History melatonin 2 mg PO HS 08/27/18 03/04/19 History memantine [Namenda] 10 mg PO BID 08/27/18 03/04/19 History rivaroxaban [Xarelto] 20 mg PO QAM 08/27/18 03/04/19 History simvastatin 20 mg PO QPM 08/27/18 03/04/19 History venlafaxine 37.5 mg PO QPM 08/27/18 03/04/19 History venlafaxine 75 mg PO QAM 08/27/18 03/04/19 History Allergies Allergy/AdvReac Type Severity Reaction Status Date / Time No Known Allergies Allergy Verified 03/04/19 06:35 Past Med/Surg History Medical History Dementia (Chronic) Thyroid disease (Chronic) Hypertension (Chronic) DVT (deep venous thrombosis) Pulmonary embolism Dementia (Acute) C. difficile colitis Diverticulitis Surgical History Hx of hysterectomy (Resolved) Family History Other Family history of heart disease Family history of stroke Social History Preferred Language: Ken[place] Communication Ability: Impaired Current Living Situation: Family other: Minimally verbal, occasional delusions, ambulatory dysfunction d/t dementia Feels Safe at Home: Yes Smoking Status: Never smoker Hx Alcohol Use: No Hx Substance Use: No Review of Systems See HPI for pertinent positives & negatives. and A total of 10 systems reviewed and were otherwise negative Physical Exam Vital Signs Vital Signs - 24 hr 03/04/19 06:07 03/04/19 07:11 03/04/19 09:06 Temperature 36.9 C Temperature Source Oral Sepsis Recent Fever Within 48 Hours No Sepsis Action Taken by Nursing No Action Required Pulse Rate 92 H Pulse Rate [Apical] 83 84 Pulse Rhythm [Apical] Regular Pulse Strength Normal Pulse Strength [Apical] Normal Respiratory Rate 18 16 16 Respiratory Effort / Characteristics Non-Labored Spontaneous Non-Labored Spontaneous Respiratory Depth Normal Normal Respiratory Pattern Regular Regular Blood Pressure 153/90 H Blood Pressure [Left Arm] 164/87 H Blood Pressure Mean 111 Blood Pressure Mean [Left Arm] 112 Blood Pressure Position [Left Arm] Lying Pulse Oximetry 97 96 96 Oxygen Delivery Method Room Air Room Air 03/04/19 09:29 Temperature Temperature Source Sepsis Recent Fever Within 48 Hours Sepsis Action Taken by Nursing Pulse Rate Pulse Rate [Apical] 99 H Pulse Rhythm [Apical] Regular Pulse Strength Pulse Strength [Apical] Normal Respiratory Rate 18 Respiratory Effort / Characteristics Non-Labored Spontaneous Respiratory Depth Normal Respiratory Pattern Blood Pressure Blood Pressure [Left Arm] 182/96 H Blood Pressure Mean Blood Pressure Mean [Left Arm] 124 Blood Pressure Position [Left Arm] Lying Pulse Oximetry 98 Oxygen Delivery Method Room Air CONSTITUTIONAL/VITAL SIGNS: Reviewed / noted above. GENERAL: Non-toxic in appearance. INTEGUMENTARY: Warm, dry, and [place]. HEAD: Normocephalic. EYES: without scleral icterus or trauma. ENT/OROPHARYNX: clear and moist. LYMPHADENOPATHY/NECK: Is supple without lymphadenopathy or meningismus. RESPIRATORY: Lungs clear and equal. CARDIOVASCULAR: Regular rate and rhythm. GI/ABDOMEN: Soft and nontender. No organomegaly or pulsatile mass. No rebound or guarding. Normal bowel sounds. EXTREMITIES: Warm and well perfused. BACK: No CVA tenderness. NEUROLOGICAL: Intact without focal deficits. PSYCHIATRIC: normal affect. MUSCULOSKELETAL: Normally developed with good muscle tone. TRIAGE NURSING DOCUMENTATION REVIEWED. Course 0638: The patient was evaluated in room B11B. A complete history and physical exam was performed. 0826: I re-evaluated the patient. Due to elevated white blood cell count I ordered a CT of the abdomen and pelvis. 1007: I consulted with Dr. Rodriguez, [facility]-hospitalist. She will evaluate for further management. 1010: I checked on the patient. I updated the patient and family on results and treatment plan. They verbally agreed and understand. Administered Medications Ioversol (Optiray 320 100ml) 93 ml IV ONCE PRN PRN Reason: Interaction Checking Stop: 03/08/19 09:29 Last Admin: 03/04/19 09:30 Dose: 93 ml Documented by: [id number] Raspberry (Raspberry) 5 ml PO Q6 AMERICO Stop: 03/18/19 11:59 Last Admin: 03/04/19 10:00 Dose: 5 ml Documented by: [id number] Discontinued Medications Sodium Chloride (Nss 1000ml) 1,000 mls @ 999 mls/hr IV .Q1H1M AMERICO Stop: 03/04/19 08:00 Last Infusion: 03/04/19 08:11 Dose: 0 mls/hr Documented by: [id number] Admin: 03/04/19 07:08 Dose: 999 mls/hr Documented by: [id number] Vancomycin HCl (Vancomycin Hcl) 125 mg PO NOW STA Stop: 03/04/19 09:45 Last Admin: 03/04/19 10:00 Dose: 125 mg Documented by: [id number] Medical Decision Making Differential Diagnosis Differential includes acute coronary syndrome, myocardial infarction, CVA, TIA, anemia, infection, pneumonia, UTI, pyelonephritis, poor nutrition, dehydration, electrolyte disturbance,hypoglycemia. Medical Records Attestation: I reviewed the patient's medical records. Home Medications Current Medication List: was personally reviewed by me Laboratory Data Attestation: I reviewed the patient's lab results. Result diagrams: 03/04/19 06:32 03/04/19 06:32 Lab Results 03/04/19 03/04/19 03/04/19 Range/Units 06:32 06:32 06:32 WBC 20.30 H (4.8-10.8) K/uL RBC 4.56 (4.2-5.4) M/uL Hgb 14.2 (12.0-16.0) g/dL Hct 41.7 (37-47) % MCV 91.4 (80-100) fL MCH 31.1 (25-34) pg MCHC 34.1 (32-36) g/dL RDW Std Deviation 44.4 (36.4-46.3) fL RDW Coeff of Fabiano 13.3 (11.5-14.5) % Plt Count 255 (130-400) K/uL MPV 11.2 H (7.4-10.4) fL Immature Gran % (Auto) 0.4 % Neut % (Auto) 85.1 % Lymph % (Auto) 6.6 % [place] % (Auto) 7.7 % Eos % (Auto) 0.1 % Baso % (Auto) 0.1 % Immature Gran # (Auto) 0.08 H (0.00-0.02) K/uL Neut # (Auto) 17.28 H (1.4-6.5) K/uL Lymph # (Auto) 1.33 (1.2-3.4) K/uL [place] # (Auto) 1.56 H (0.11-0.59) K/uL Eos # (Auto) 0.02 (0-0.5) K/uL Baso # (Auto) 0.03 (0-0.2) K/uL PT 11.4 (9.0-12.0) Seconds INR 1.1 (0.9-1.1) Sodium 145 (136-145) mmol/L Potassium 3.7 (3.5-5.1) mmol/L Chloride 110 H (98-107) mmol/L Carbon Dioxide 26 (21-32) mmol/L Anion Gap 9.0 (3-11) BUN 24 H (7-18) mg/dl Creatinine 1.19 (0.6-1.2) mg/dl Est Cr Clr Drug Dosing Not Reportable Est GFR ( Amer) 52.8 Est GFR (Non-Af Amer) 45.6 BUN/Creatinine Ratio 19.8 (10-20) Glucose 125 H (70-99) mg/dl POC Lactic Acid Yogesh (0.90-1.70) mmol/L Calcium 9.7 (8.5-10.1) mg/dl Phosphorus (2.5-4.9) mg/dl Magnesium (1.8-2.4) mg/dl Total Bilirubin (0.2-1) mg/dl Direct Bilirubin (0-0.2) mg/dl AST (15-37) U/L ALT (12-78) U/L Alkaline Phosphatase (45-117) U/L Total Protein (6.4-8.2) gm/dl Albumin (3.4-5.0) gm/dl Lipase 533 H (73-393) U/L Stl C. diff Tox B Gene (Neg) 03/04/19 03/04/19 03/04/19 Range/Units 06:32 08:50 10:09 WBC (4.8-10.8) K/uL RBC (4.2-5.4) M/uL Hgb (12.0-16.0) g/dL Hct (37-47) % MCV (80-100) fL MCH (25-34) pg MCHC (32-36) g/dL RDW Std Deviation (36.4-46.3) fL RDW Coeff of Fabiano (11.5-14.5) % Plt Count (130-400) K/uL MPV (7.4-10.4) fL Immature Gran % (Auto) % Neut % (Auto) % Lymph % (Auto) % [place] % (Auto) % Eos % (Auto) % Baso % (Auto) % Immature Gran # (Auto) (0.00-0.02) K/uL Neut # (Auto) (1.4-6.5) K/uL Lymph # (Auto) (1.2-3.4) K/uL [place] # (Auto) (0.11-0.59) K/uL Eos # (Auto) (0-0.5) K/uL Baso # (Auto) (0-0.2) K/uL PT (9.0-12.0) Seconds INR (0.9-1.1) Sodium (136-145) mmol/L Potassium (3.5-5.1) mmol/L Chloride (98-107) mmol/L Carbon Dioxide (21-32) mmol/L Anion Gap (3-11) BUN (7-18) mg/dl Creatinine (0.6-1.2) mg/dl Est Cr Clr Drug Dosing Est GFR ( Amer) Est GFR (Non-Af Amer) BUN/Creatinine Ratio (10-20) Glucose (70-99) mg/dl POC Lactic Acid Yogesh 2.98 H (0.90-1.70) mmol/L Calcium (8.5-10.1) mg/dl Phosphorus 4.0 (2.5-4.9) mg/dl Magnesium 2.5 H (1.8-2.4) mg/dl Total Bilirubin 0.2 (0.2-1) mg/dl Direct Bilirubin < 0.1 (0-0.2) mg/dl AST 45 H (15-37) U/L ALT 39 (12-78) U/L Alkaline Phosphatase 150 H (45-117) U/L Total Protein 7.4 (6.4-8.2) gm/dl Albumin 3.4 (3.4-5.0) gm/dl Lipase (73-393) U/L Stl C. diff Tox B Gene Positive Cdiff Gene H (Neg) Imaging Data Radiologist's Impression: Radiology results as stated below per my review and the radiologist's interpretation: XR chest 1V portable CLINICAL HISTORY: vomiting r/o aspiration nausea COMPARISON STUDY: No previous studies for comparison. FINDINGS: The bones soft tissues and hemidiaphragms are normal. The cardiomediastinal silhouette is normal. The lungs are clear. The pulmonary vasculature is normal. IMPRESSION: Negative chest. The above report was generated using voice recognition software. It may contain grammatical, syntax or spelling errors. Electronically signed by: Ramu Sandhu M.D. 03/04/2019 7:[address] abd pelvis IV con only CLINICAL HISTORY: Leukocytosis, r/o diverticulitis ABDOMINAL PAIN COMPARISON STUDY: CT scan dated 02/07/2018 TECHNIQUE: The patient was scanned in a dynamic helical fashion during intravenous administration of 93 cc of Optiray 320. A dose lowering technique was utilized adhering to the principles of ALARA. CT DOSE: 524.73 mGycm FINDINGS: Lower chest: The heart is normal in size. There is no pericardial effusion. There are minor dependent atelectatic changes. There is a small hiatal hernia. There is a stable 3 mm subpleural left lower lobe pulmonary nodule Liver: The contrast-enhanced liver is normal in size, contour, and attenuation. There is no intrahepatic biliary ductal dilatation. The hepatic veins and portal veins are patent. Gallbladder: Cholelithiasis Spleen: Normal in size and attenuation. Pancreas: Unremarkable. Adrenal glands: Unremarkable. Kidneys: No solid renal masses are visualized. There is mild prominence the left renal pelvis and right renal collecting system. No ureteral or bladder calculi are visualized. Bowel: There are no transition zones indicate bowel obstruction. There is severe colonic diverticulosis with associated muscular hypertrophy. There is a long segment colonic wall thickening most pronounced within the transverse colon. An infectious/inflammatory colitis is favored. Peritoneum: There is no intraperitoneal free air or abdominal ascites. There is small fat-containing umbilical hernia Vasculature: There is no evidence of abdominal aortic aneurysm. There are extensive atheromatous changes at the renal artery origins. Adenopathy: None. Pelvic viscera: The uterus appears surgically absent Skeletal structures: No destructive osseous lesions are seen. IMPRESSION: 1. No evidence of bowel obstruction. No evidence of free air 2. Pancolonic wall thickening, most pronounced involving the transverse colon. An infectious/inflammatory colitis is favored 3. Severe sigmoid diverticulosis with associated muscular hypertrophy 4. Cholelithiasis Electronically signed by: Darnell Myles M.D. 03/04/2019 9:36 AM Blood Pressure Blood Pressure Findings: Elevated blood pressure Blood Pressure Disposition: further management by hospitalist [facility] Narrative This is a 73-year-old female who presents to the ED with a chief complaint of vomiting this morning. The son is the historian as the patient has dementia. The patient uses CPAP at night. At around 2:30 in the morning, she had her CPAP off and it appears as though she vomited next to her bed and on her bed. There was a small amount of vomit in the CPAP mask. He was concerned possibly about some aspiration. The patient also soiled herself and had about 2 to 3 hours worth of diarrhea that was watery in nature. Last bowel movement was less liquidy and had a small amount of blood in it. The patient is on Xarelto for history of PE. The patient's heart rate was also around 140 at that time. The patient was cleaned up and then brought here for evaluation this morning at around 6:30 in the morning. The patient follows basic commands. She does appear to week week according to the son but not as bad as other previous similar episodes when she has diarrhea. She had decreased oral intake yesterday. The patient has not had recent antibiotics but has a history of C. difficile. Her physical exam was normal. Her vital signs are decent. Pulse ox was normal. Blood pressure was slightly elevated. Her abdomen is soft and nontender. Mucous membranes are currently moist. The patient provided a bloody stool sample. The patient's white blood cell count was 20.3. Hemoglobin is normal. BUN is 24. Lipase 533. Chemistry panel is otherwise unremarkable. Chest x-ray was negative for acute disease. CT scan of the abdomen pelvis reveals a pancolitis with findings concerning for infectious versus inflammatory process in the bowels greatest in the transverse colon. The patient symptoms highly concerning for C. difficile colitis. She did provide a sample of stool that it was actually mostly blood. She was given p.o. vancomycin. Lactic acid was 2.98. Patient was also treated with normal saline IV during her stay. I will speak with the hospitalist about further inpatient management of the patient. The C. difficile test came out positive. Impression & Plan Colitis with rectal bleeding, C. difficile colitis Discharge Plan Visit Data Chief Complaint: Vomiting Stated Complaint: VOMITING IN CPAP,DIARRHEA,BLOOD IN STOOL ED Provider: Alex Abdi Discharge Problem: Colitis with rectal bleeding, C. difficile colitis Patient Disposition: Being Evaluated by Hospitalist Forms Stand Alone Forms: My [facility] Prescriptions Prescriptions: No Action venlafaxine 37.5 mg capsule,extended release 24hr 37.5 mg PO QPM RF: 0 venlafaxine 75 mg capsule,extended release 24hr 75 mg PO QAM RF: 0 donepezil 10 mg tablet 10 mg PO QAM RF: 0 lisinopril 20 mg tablet 20 mg PO BID RF: 0 aspirin 81 mg Tablet,Delayed Release (Dr/Ec) 81 mg PO QAM RF: 0 levothyroxine 75 mcg tablet 75 mcg PO QAM RF: 0 simvastatin 20 mg tablet 20 mg PO QPM RF: 0 buspirone 10 mg tablet 10 mg PO BID RF: 0 cholecalciferol (vitamin D3) [Vitamin D3] 1,000 unit Capsule 1,000 unit PO DAILY RF: 0 melatonin 1 mg Tablet 2 mg PO HS RF: 0 memantine [Namenda] 10 mg Tablet 10 mg PO BID RF: 0 Xarelto 20 mg Tablet 20 mg PO QAM RF: 0 Referrals Referrals: Naomi Patterson [Primary Care Provider] - The scribe's documentation has been prepared under my direction and personally reviewed by me in its entirety. I confirm that the note above accurately reflects all work, treatment, procedures, and medical decision making performed by me.
[2019-03-04] MEDS ORDERED: SODIUM CHLORIDE 0.9% 1000ML 1,000 ML IV SCH (07:00)
[2019-03-04 07:07] LABS: Basophils # (auto) 0.03 K/uL (0-0.2); Basophils % (auto) 0.1 %; Eosinophils # (auto) 0.02 K/uL (0-0.5); Eosinophils % (auto) 0.1 %; Hematocrit (blood only) 41.7 % (37-47); Hemoglobin 14.2 g/dL (12.0-16.0); Immature Granulocytes # (auto) 0.08 K/uL (0.00-0.02); Immature Granulocytes % (auto) 0.4 %; Lymphocytes # (auto) 1.33 K/uL (1.2-3.4); Lymphocytes % (auto) 6.6 %; Mean Corpuscular Hgb Conc 34.1 g/dL (32-36); Mean Corpuscular Volume 91.4 fL (80-100); Mean Platelet Volume 11.2 fL (7.4-10.4); Monocytes # (auto) 1.56 K/uL (0.11-0.59); Monocytes % (auto) 7.7 %; Neutrophils # (auto) 17.28 K/uL (1.4-6.5); Neutrophils % (auto) 85.1 %; Platelet Count 255 K/uL (130-400); RDW Coefficient of Variation 13.3 % (11.5-14.5); RDW Standard Deviation 44.4 fL (36.4-46.3); Red Blood Count 4.56 M/uL (4.2-5.4)
[2019-03-04 07:14] LABS: BUN Creatinine Ratio 19.8 (10-20); Blood Urea Nitrogen 24 mg/dl (7-18); Calcium 9.7 mg/dl (8.5-10.1); Carbon Dioxide 26 mmol/L (21-32); Chloride 110 mmol/L (98-107); Est GFR (African American) 52.8; Est GFR (Non-African American) 45.6; Glucose 125 mg/dl (70-99); Potassium 3.7 mmol/L (3.5-5.1); Sodium 145 mmol/L (136-145)
--- NOTE | 2019-03-04 07:38 | XRay Report ---
XR chest 1V portable CLINICAL HISTORY: vomiting r/o aspiration nausea COMPARISON STUDY: No previous studies for comparison. FINDINGS: The bones soft tissues and hemidiaphragms are normal. The cardiomediastinal silhouette is n ormal. The lungs are clear. The pulmonary vasculature is normal. IMPRESSION: Negative chest. The above report was generated using voice recognition software. It may contain grammatical, syntax or spelling errors. Electronically signed by: Ramu Sandhu M.D. 03/04/2019 7:37 AM
[2019-03-04] MEDS ORDERED: IOVERSOL 100ml IV PRN (09:30)
--- NOTE | 2019-03-04 09:37 | CT Scan Report ---
CT abd pelvis IV con only CLINICAL HISTORY: Leukocytosis, r/o diverticulitis ABDOMINAL PAIN COMPARISON STUDY: CT scan dated 02/07/2018 TECHNIQUE: The patient was scanned in a dynamic helical fashion during intravenous administration of 93 cc of Optiray 320. A dose lowering technique was utilized adhering to the principles of ALARA. CT DOSE: 524.73 mGycm FINDINGS: Lower chest: The heart is normal in size. There is no pericardial effusion. There are minor dependent atelectatic changes. There is a small hiatal hernia. There is a stable 3 mm subpleural left lower lo be pulmonary nodule Liver: The contrast-enhanced liver is normal in size, contour, and attenuation. There is no intrahepa tic biliary ductal dilatation. The hepatic veins and portal veins are patent. Gallbladder: Cholelithiasis Spleen: Normal in size and attenuation. Pancreas: Unremarkable. Adrenal glands: Unremarkable. Kidneys: No solid renal masses are visualized. There is mild prominence the left renal pelvis and rig ht renal collecting system. No ureteral or bladder calculi are visualized. Bowel: There are no transition zones indicate bowel obstruction. There is severe colonic diverticulos is with associated muscular hypertrophy. There is a long segment colonic wall thickening most pronoun lisa within the transverse colon. An infectious/inflammatory colitis is favored. Peritoneum: There is no intraperitoneal free air or abdominal ascites. There is small fat-containing umbilical hernia Vasculature: There is no evidence of abdominal aortic aneurysm. There are extensive atheromatous kohli ges at the renal artery origins. Adenopathy: None. Pelvic viscera: The uterus appears surgically absent Skeletal structures: No destructive osseous lesions are seen. IMPRESSION: 1. No evidence of bowel obstruction. No evidence of free air 2. Pancolonic wall thickening, most pronounced involving the transverse colon. An infectious/inflamma tory colitis is favored 3. Severe sigmoid diverticulosis with associated muscular hypertrophy 4. Cholelithiasis Electronically signed by: Darnell Myles M.D. 03/04/2019 9:36 AM
[2019-03-04] MEDS ORDERED: VANCOMYCIN HCL 125 MG/2.5ML SOLN PO STA (09:44)
[2019-03-04 10:52] LABS: INR 1.1 (0.9-1.1); Prothrombin Time 11.4 Seconds (9.0-12.0)
[2019-03-04 10:59] LABS: Alanine Aminotransferase 39 U/L (12-78); Albumin Level 3.4 gm/dl (3.4-5.0); Alkaline Phosphatase 150 U/L (45-117); Aspartate Aminotransferase 45 U/L (15-37); Bilirubin Direct < 0.1 mg/dl (0-0.2); Bilirubin,Total 0.2 mg/dl (0.2-1); Magnesium 2.5 mg/dl (1.8-2.4); Total Protein 7.4 gm/dl (6.4-8.2)
--- NOTE | 2019-03-04 11:28 | History & Physical Report ---
Date of Service March 04, 2019 Assessment & Plan (1) Colitis with rectal bleeding: Patient with nausea, vomiting and multiple episodes of watery diarrhea this AM with most recent BMs being bloody. Patient afebrile, hypertensive otherwise hemodynamically stable. Abdominal exam with mild tenderness, no peritoneal signs, no distention. Marked neutrophil predominant leukocytosis with WBC=20.3. CT confirms pancolitis suggestive of infectious or inflammatory process. Patient with history of C. difficile approximately one year ago which was treated with IV Flagyl and PO Vancomycin. Concern for c. diff vs infectious colitis. C. diff Tox B gene positive, toxin A&B still pending - this result will help to establish true infection vs indeterminate/carrier state. Mildly elevated POC lactate at 2.98 - doubt ischemic colitis given exam findings. -Admit to PCU -Check stool culutre -Check stool leukocytes -Follow C. diff toxin results -CBC q 8 hours - transfuse for active bleeding, symptomatic anemia or Hg < 7 -Repeat Lactate - if continues to increase will consult Surgery -Will treat with Fidaxomicin for now, 200mg po BID - if toxin negative will discontinue this -GI consultation - appreciate assistance with this case Present on Admission?: Yes (2) Dementia: Patient with history of severe dementia. Minimally verbal at baseline. Does not care for herself. -Delirium prevention strategies -Continue Aricept and Namenda Present on Admission?: Yes (3) Thyroid disease: Chronic. 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 On Xarelto anticoagulation. Patient HD stable without ongoing bloody diarrhea at this time. -Hold Xarelto in setting of suspected GIB. -Continue to monitor Present on Admission?: Yes (6) Elevated lipase: Rxvnsa=170. Patient with no epigastric tenderness. No mention of pancreatitis on CT imaging (lipase < 3X ULN). ?elevation in setting of colitis, nausea and vomiting -Continue to monitor (7) Depression: Chronic. -Continue Buspirone and Venlafaxine at home doses F/E/N - LR at 100mL/hr x 2 iters, electrolytes WNL, Clear liquid diet as tolerated Ppx - SCDs to bilateral LEs Code - Full per discussion with patient Dispo - Admit to PCU History of Present Illness Chief Complaint: diarrhea Primary Care Provider: Naomi Patterson History obtained from discussion with ER physician and patient's daughter at bedside. Patient unable to provide details of history due to underlying dementia. 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 Symptoms began around 02:30 when the patient had nausea and vomiting. Some vomitus present in her CPAP mask per family, uncertain if aspiration. Patient then developed multiple episodes of large volume, watery diarrhea which persisted for approximately 2-3 hours. Family reports that some blood was present after the last diarrhea episode. Patient complains of some mild lower abdominal pain. Last week she had a low grade fever and mild diarrhea as well. Patient with history of C. diff diarrhea in Feb, 2018 which occurred after receiving antibiotics for acute diverticulitis. She was treated with PO Vancomycin to complete a 10 day course. Daughter denies recent antibiotic use, travel, change in medication or diet. No sick contacts. Patient had an episode of joe bloody BM in the ER. ER Course: Vancomycin 125mg PO, NSS Allergies Allergy/AdvReac Type Severity Reaction Status Date / Time No Known Allergies Allergy Verified 03/04/19 06:35 Home Medications Home Medications Medication Instructions Recorded Confirmed Type aspirin 81 mg PO QAM 08/27/18 03/04/19 History buspirone 10 mg PO BID 08/27/18 03/04/19 History cholecalciferol (vitamin D3) 1,000 unit PO DAILY 08/27/18 03/04/19 History [Vitamin D3] donepezil 10 mg PO QAM 08/27/18 03/04/19 History levothyroxine 75 mcg PO QAM 08/27/18 03/04/19 History lisinopril 20 mg PO BID 08/27/18 03/04/19 History melatonin 2 mg PO HS 08/27/18 03/04/19 History memantine [Namenda] 10 mg PO BID 08/27/18 03/04/19 History rivaroxaban [Xarelto] 20 mg PO QAM 08/27/18 03/04/19 History simvastatin 20 mg PO QPM 08/27/18 03/04/19 History venlafaxine 37.5 mg PO QPM 08/27/18 03/04/19 History venlafaxine 75 mg PO QAM 08/27/18 03/04/19 History Past Med/Surg History Medical History Dementia (Chronic) Thyroid disease (Chronic) Hypertension (Chronic) DVT (deep venous thrombosis) Pulmonary embolism Dementia (Acute) C. difficile colitis Diverticulitis Surgical History Hx of hysterectomy (Resolved) Family History Other Family history of heart disease Family history of stroke Social History Preferred Language: Albanian Communication Ability: Impaired Current Living Situation: Family other: Minimally verbal, occasional delusions, ambulatory dysfunction d/t dementia Feels Safe at Home: Yes Smoking Status: Never smoker Hx Alcohol Use: No Hx Substance Use: No Review of Systems Review of Systems: All systems reviewed & are unremarkable except as noted in HPI & below +Lower abdominal pain +Decreased appetite No SOB, cough, respiratory distress No change in mental status Physical Exam Physical Exam: General: patient resting comfortably, NAD, non-toxic in appearance, minimally verbal, follows some commands Skin: warm, dry, intact, no rashes or lesions HEENT: NC/AT, PERRL, EOMI, anicteric sclera, conjunctiva without injection, external ear normal to inspection and nontender, nares patent, dry mucus membranes, dentition intact, no oropharyngeal lesions, neck supple, trachea midline, no LAD, no thyromegaly, no JVD Heart: +S1/S2, regular, no m/r/g Lungs: equal air entry bilaterally, no rales/rhonchi/wheezes Abd: +BS, soft, ND, mildly tender with deep palpation of the lower abdomen, no masses/organomegaly/ascites Ext: warm, 2+ pulses in UE/LE bilaterally, no clubbing/cyanosis or edema Neuro: patient minimally verbal, follows some commands, moves UE/LE on command with equal strength bilaterally Results & Data Vital Signs (Past 12 Hours) Vital Signs Temp Pulse Pulse Resp BP BP Pulse Ox 03/04/19 09:29 99 H 18 182/96 H 98 03/04/19 09:06 84 16 96 03/04/19 07:11 83 16 164/87 H 96 03/04/19 06:07 36.9 C 92 H 18 153/90 H 97 Laboratory Results Lab Results 03/04/19 03/04/19 03/04/19 Range/Units 06:32 06:32 06:32 WBC 20.30 H (4.8-10.8) K/uL RBC 4.56 (4.2-5.4) M/uL Hgb 14.2 (12.0-16.0) g/dL Hct 41.7 (37-47) % MCV 91.4 (80-100) fL MCH 31.1 (25-34) pg MCHC 34.1 (32-36) g/dL RDW Std Deviation 44.4 (36.4-46.3) fL RDW Coeff of Fabiano 13.3 (11.5-14.5) % Plt Count 255 (130-400) K/uL MPV 11.2 H (7.4-10.4) fL Immature Gran % (Auto) 0.4 % Neut % (Auto) 85.1 % Lymph % (Auto) 6.6 % Ransom % (Auto) 7.7 % Eos % (Auto) 0.1 % Baso % (Auto) 0.1 % Immature Gran # (Auto) 0.08 H (0.00-0.02) K/uL Neut # (Auto) 17.28 H (1.4-6.5) K/uL Lymph # (Auto) 1.33 (1.2-3.4) K/uL Ransom # (Auto) 1.56 H (0.11-0.59) K/uL Eos # (Auto) 0.02 (0-0.5) K/uL Baso # (Auto) 0.03 (0-0.2) K/uL PT 11.4 (9.0-12.0) Seconds INR 1.1 (0.9-1.1) Sodium 145 (136-145) mmol/L Potassium 3.7 (3.5-5.1) mmol/L Chloride 110 H (98-107) mmol/L Carbon Dioxide 26 (21-32) mmol/L Anion Gap 9.0 (3-11) BUN 24 H (7-18) mg/dl Creatinine 1.19 (0.6-1.2) mg/dl Est Cr Clr Drug Dosing Not Reportable Est GFR ( Amer) 52.8 Est GFR (Non-Af Amer) 45.6 BUN/Creatinine Ratio 19.8 (10-20) Glucose 125 H (70-99) mg/dl POC Lactic Acid Yogesh (0.90-1.70) mmol/L Calcium 9.7 (8.5-10.1) mg/dl Phosphorus (2.5-4.9) mg/dl Magnesium (1.8-2.4) mg/dl Total Bilirubin (0.2-1) mg/dl Direct Bilirubin (0-0.2) mg/dl AST (15-37) U/L ALT (12-78) U/L Alkaline Phosphatase (45-117) U/L Total Protein (6.4-8.2) gm/dl Albumin (3.4-5.0) gm/dl Lipase 533 H (73-393) U/L Stl C. diff Tox B Gene (Neg) 03/04/19 03/04/19 03/04/19 Range/Units 06:32 08:50 10:09 WBC (4.8-10.8) K/uL RBC (4.2-5.4) M/uL Hgb (12.0-16.0) g/dL Hct (37-47) % MCV (80-100) fL MCH (25-34) pg MCHC (32-36) g/dL RDW Std Deviation (36.4-46.3) fL RDW Coeff of Fabiano (11.5-14.5) % Plt Count (130-400) K/uL MPV (7.4-10.4) fL Immature Gran % (Auto) % Neut % (Auto) % Lymph % (Auto) % Ransom % (Auto) % Eos % (Auto) % Baso % (Auto) % Immature Gran # (Auto) (0.00-0.02) K/uL Neut # (Auto) (1.4-6.5) K/uL Lymph # (Auto) (1.2-3.4) K/uL Ransom # (Auto) (0.11-0.59) K/uL Eos # (Auto) (0-0.5) K/uL Baso # (Auto) (0-0.2) K/uL PT (9.0-12.0) Seconds INR (0.9-1.1) Sodium (136-145) mmol/L Potassium (3.5-5.1) mmol/L Chloride (98-107) mmol/L Carbon Dioxide (21-32) mmol/L Anion Gap (3-11) BUN (7-18) mg/dl Creatinine (0.6-1.2) mg/dl Est Cr Clr Drug Dosing Est GFR ( Amer) Est GFR (Non-Af Amer) BUN/Creatinine Ratio (10-20) Glucose (70-99) mg/dl POC Lactic Acid Yogesh 2.98 H (0.90-1.70) mmol/L Calcium (8.5-10.1) mg/dl Phosphorus 4.0 (2.5-4.9) mg/dl Magnesium 2.5 H (1.8-2.4) mg/dl Total Bilirubin 0.2 (0.2-1) mg/dl Direct Bilirubin < 0.1 (0-0.2) mg/dl AST 45 H (15-37) U/L ALT 39 (12-78) U/L Alkaline Phosphatase 150 H (45-117) U/L Total Protein 7.4 (6.4-8.2) gm/dl Albumin 3.4 (3.4-5.0) gm/dl Lipase (73-393) U/L Stl C. diff Tox B Gene Positive Cdiff Gene H (Neg) Diagnostic Findings CT abd pelvis IV con only CLINICAL HISTORY: Leukocytosis, r/o diverticulitis ABDOMINAL PAIN COMPARISON STUDY: CT scan dated 02/07/2018 TECHNIQUE: The patient was scanned in a dynamic helical fashion during intravenous administration of 93 cc of Optiray 320. A dose lowering technique was utilized adhering to the principles of ALARA. CT DOSE: 524.73 mGycm FINDINGS: Lower chest: The heart is normal in size. There is no pericardial effusion. There are minor dependent atelectatic changes. There is a small hiatal hernia. There is a stable 3 mm subpleural left lower lobe pulmonary nodule Liver: The contrast-enhanced liver is normal in size, contour, and attenuation. There is no intrahepatic biliary ductal dilatation. The hepatic veins and portal veins are patent. Gallbladder: Cholelithiasis Spleen: Normal in size and attenuation. Pancreas: Unremarkable. Adrenal glands: Unremarkable. Kidneys: No solid renal masses are visualized. There is mild prominence the left renal pelvis and right renal collecting system. No ureteral or bladder calculi are visualized. Bowel: There are no transition zones indicate bowel obstruction. There is severe colonic diverticulosis with associated muscular hypertrophy. There is a long segment colonic wall thickening most pronounced within the transverse colon. An infectious/inflammatory colitis is favored. Peritoneum: There is no intraperitoneal free air or abdominal ascites. There is small fat-containing umbilical hernia Vasculature: There is no evidence of abdominal aortic aneurysm. There are extensive atheromatous changes at the renal artery origins. Adenopathy: None. Pelvic viscera: The uterus appears surgically absent Skeletal structures: No destructive osseous lesions are seen. IMPRESSION: 1. No evidence of bowel obstruction. No evidence of free air 2. Pancolonic wall thickening, most pronounced involving the transverse colon. An infectious/inflammatory colitis is favored 3. Severe sigmoid diverticulosis with associated muscular hypertrophy 4. Cholelithiasis Electronically signed by: Darnell Myles M.D. 03/04/2019 9:36 AM Dictated: 03/04/19927 Transcribed: 03/04/19927 XR chest 1V portable CLINICAL HISTORY: vomiting r/o aspiration nausea COMPARISON STUDY: No previous studies for comparison. FINDINGS: The bones soft tissues and hemidiaphragms are normal. The cardiomediastinal silhouette is normal. The lungs are clear. The pulmonary vasculature is normal. IMPRESSION: Negative chest. The above report was generated using voice recognition software. It may contain grammatical, syntax or spelling errors. Electronically signed by: Ramu Sandhu M.D. 03/04/2019 7:37 AM Dictated: 03/04/19710 Transcribed: 03/04/19710 ECG Additional Comments: EKG with NSR at 80bpm, normal axis, FL=890, QRS=70, QTc=4 24, ST abnormality in inferior leads unchanged from prior study 28 december 2018 Code Status & VTE Plan Code Status Full VTE Prophylaxis Plan VTE Prophylaxis will be ordered: Yes (1) Dementia Dementia type: unspecified type Dementia behavioral disturbance: without behavioral disturbance Qualified Code(s): F03.90 - Unspecified dementia without behavioral disturbance (2) Hypertension Hypertension type: essential hypertension Qualified Code(s): I10 - Essential (primary) hypertension (3) Depression Depression Type: unspecified Qualified Code(s): F32.9 - Major depressive disorder, single episode, unspecified
[2019-03-04 11:38] LABS: Cdiff Antigen Negative; Cdiff Toxin A+B Negative Cdiff Toxin (Negative)
[2019-03-04] MEDS ORDERED: RASPBERRY SYRUP 5 ML UDP PO SCH (12:00)
[2019-03-04] MEDS ORDERED: ONDANSETRON INJ 2 MG/ML 2 ML VIAL IV PRN (13:04)
[2019-03-04] MEDS: LACTATED RINGER'S 1,000 ML IV SCH ×2 (13:38→23:55)
[2019-03-04 14:01] LABS: Basophils # (auto) 0.02 K/uL (0-0.2); Basophils % (auto) 0.1 %; Eosinophils # (auto) 0.01 K/uL (0-0.5); Eosinophils % (auto) 0.1 %; Hematocrit (blood only) 39.6 % (37-47); Hemoglobin 13.1 g/dL (12.0-16.0); Immature Granulocytes # (auto) 0.05 K/uL (0.00-0.02); Immature Granulocytes % (auto) 0.3 %; Lymphocytes # (auto) 1.47 K/uL (1.2-3.4); Lymphocytes % (auto) 7.5 %; Mean Corpuscular Hgb Conc 33.1 g/dL (32-36); Mean Platelet Volume 11.1 fL (7.4-10.4); Monocytes # (auto) 1.57 K/uL (0.11-0.59); Neutrophils # (auto) 16.45 K/uL (1.4-6.5); Platelet Count 231 K/uL (130-400); RDW Coefficient of Variation 13.2 % (11.5-14.5); RDW Standard Deviation 43.9 fL (36.4-46.3); Red Blood Count 4.35 M/uL (4.2-5.4); White Blood Count 19.57 K/uL (4.8-10.8)
[2019-03-04] MEDS ORDERED: LISINOPRIL 20 MG TAB PO ONE (16:00)
[2019-03-04] MEDS ORDERED: SODIUM CHLORIDE 0.9% 1000ML 500 ML IV ONE (17:54)
[2019-03-04] MEDS ORDERED: LORazepam 1 MG/2 ML VIAL IV ONE (20:02)
[2019-03-04] MEDS: metroNIDAZOLE 500 MG/100 ML BAG IV SCH (20:02)
[2019-03-04] MEDS ORDERED: MELATONIN 2 MG PO SCH (21:00)
[2019-03-04] MEDS: CIPROFLOXACIN 400 MG/200 ML BAG IV SCH (21:02)
--- NOTE | 2019-03-04 21:02 | CT Scan Report ---
ABDOMEN AND PELVIS CT WITHOUT CONTRAST CT DOSE: 554.41 mGycm HISTORY: elevated lactate TECHNIQUE: Multiaxial CT images of the abdomen and pelvis were performed without contrast. A dose lo wering technique was utilized adhering to the principles of ALARA. COMPARISON STUDY: Abdomen and pelvis CT 03/04/2019. FINDINGS: A few bibasilar linear densities consistent with subsegmental atelectasis. No pneumoperiton eum. No pneumatosis. Old, healed right pelvic bone fractures. A few punctate gallstones. The unenhanc ed liver, pancreas, spleen, adrenal glands are unremarkable. No renal stones or hydronephrosis. No re troperitoneal lymphadenopathy. The bladder is unremarkable. The uterus is surgically absent. Colonic diverticulosis. Mild to moderate bowel wall thickening involving the distal transverse colon, descend ing colon, and sigmoid colon with associated pericolonic fat stranding. The ascending colon and proxi mal to mid transverse colon show no significant bowel wall thickening. This has improved in the inter lynne. No evidence for bowel obstruction. IMPRESSION: No significant change in the distal colonic wall thickening consistent with a nonspecific colitis. Th is could be due to infectious, inflammatory, or ischemic process. The proximal colonic wall thickenin g has improved. Electronically signed by: Hari Kruse M.D. 03/04/2019 9:00 PM
[2019-03-04] MEDS: LISINOPRIL 20 MG TAB PO SCH (21:51)
[2019-03-04] MEDS: VENLAFAXINE HCL XR 37.5 MG CAPXR PO SCH (21:52)
[2019-03-04] MEDS: SIMVASTATIN 20 MG TAB PO SCH (21:52)
[2019-03-04] MEDS: MEMANTINE HCL 10 MG TAB PO SCH (21:52)
[2019-03-04 22:29] LABS: Basophils # (auto) 0.02 K/uL (0-0.2); Basophils % (auto) 0.1 %; Eosinophils # (auto) 0.02 K/uL (0-0.5); Eosinophils % (auto) 0.1 %; Hematocrit (blood only) 37.7 % (37-47); Hemoglobin 12.5 g/dL (12.0-16.0); Immature Granulocytes # (auto) 0.04 K/uL (0.00-0.02); Immature Granulocytes % (auto) 0.2 %; Lymphocytes # (auto) 1.96 K/uL (1.2-3.4); Lymphocytes % (auto) 10.1 %; Mean Corpuscular Hgb Conc 33.2 g/dL (32-36); Mean Corpuscular Volume 90.6 fL (80-100); Mean Platelet Volume 11.1 fL (7.4-10.4); Monocytes # (auto) 1.75 K/uL (0.11-0.59); Neutrophils # (auto) 15.67 K/uL (1.4-6.5); Neutrophils % (auto) 80.5 %; Platelet Count 221 K/uL (130-400); RDW Coefficient of Variation 13.3 % (11.5-14.5); RDW Standard Deviation 44.1 fL (36.4-46.3); Red Blood Count 4.16 M/uL (4.2-5.4); White Blood Count 19.46 K/uL (4.8-10.8)
--- NOTE | 2019-03-04 22:44 | Consultation Report ---
DATE OF CONSULTATION: 03/04/2019 GASTROENTEROLOGY CONSULTATION SEX: Female. RACE: . ATTENDING PHYSICIAN: Leatha Rodriguez DO CONSULTING PHYSICIAN: Sidney Vidal DO REASON FOR CONSULTATION: Colitis. HISTORY OF PRESENT ILLNESS: This patient is a 73-year-old female who presented to the Department of Emergency Medicine early this morning with complaints of vomiting and blood in her stool. She was accompanied to the Emergency Room by her son who stated that she had had a diarrheal illness last week as well and states that the patient has had Clostridium difficile in the past. She had approximately 3 bowel movements, watery in nature and 1 with blood last night, prompting evaluation in the Department of Emergency Medicine. Her white blood cell count was noted to be 20.30 with a hemoglobin of 14.2, hematocrit 41.7 and a platelet count of 255. Her sodium was 145, potassium 3.7, chloride 110, bicarbonate 26, BUN 24, creatinine 1.19 and a blood glucose level was 125. Her lipase level was 533. Lactic acid level was 2.98. Liver panel was unremarkable with the exception of a slightly elevated AST of 45 and elevated alkaline phosphatase of 150. Stool testing returned positive for the Clostridium difficile gene though later returned negative for Clostridium difficile toxin. 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 Her imaging studies in the Emergency Room included a CT scan of her abdomen and pelvis which showed no evidence of bowel obstruction; however, there was pancolonic wall thickening, most pronounced involving the transverse colon with an infectious/inflammatory colitis favored. There was also severe sigmoid diverticulosis with associated muscular hypertrophy. It should be noted that the CT scan was performed with I.V. contrast only. The patient was subsequently admitted. She was given a single dose of vancomycin 125 mg p.o. x1. At the time that I saw the patient, her daughter was in the room with her. She stated that she had not had a bowel movement since noon today. The patient herself denies any abdominal pain, fevers or chills. Her daughter states that she has not had any further vomiting episodes. She denies any recent sick contacts and the patient nor her daughter can tell me of a prior colonoscopy that the patient has undergone previously. PAST MEDICAL HISTORY: Significant for dementia, thyroid disease, hypertension, deep venous thrombosis, pulmonary embolus, Clostridium difficile colitis and diverticulitis. PAST SURGICAL HISTORY: Includes hysterectomy. ALLERGIES: None. MEDICATIONS: At present, BuSpar 10 mg p.o. b.i.d., donepezil 10 mg p.o. q.a.m., Synthroid 75 mcg p.o. daily, Zestril 20 mg p.o. b.i.d., Namenda 10 mg p.o. b.i.d., Zocor 20 mg p.o. q.p.m., Effexor 37.5 mg p.o. q.p.m. and Effexor 75 mg p.o. q.a.m.. P.r.n. medications include Zofran 4 mg I.V. q. 6 hours p.r.n. nausea. SOCIAL HISTORY: No tobacco, alcohol or illicit drug use. She currently lives with her family. FAMILY HISTORY: Negative for gastrointestinal malignancy or inflammatory bowel disease. REVIEW OF SYSTEMS: Unobtainable secondary to the patient's underlying dementia. PHYSICAL EXAMINATION: VITAL SIGNS: Temperature 36.6, pulse 111, respirations 20, blood pressure 143/84 and pulse ox 99% on room air. GENERAL: She is awake, cooperative, demented pleasantly, in no acute distress. HEAD: Normocephalic and atraumatic. EYES: Pupils are equally round. Extraocular muscles are intact. ENT: External evaluation of ears and nose is normal. Oropharynx is clear. NECK: Soft. Supple. CHEST: Clear to auscultation bilaterally. CARDIOVASCULAR SYSTEM: Regular rate and rhythm. ABDOMEN: Soft, nontender and nondistended. Positive bowel sounds. There is no appreciable hepatosplenomegaly. EXTREMITIES: No clubbing, cyanosis or edema. LABORATORY STUDIES AND RADIOGRAPHIC STUDIES: Reviewed in the HPI. IMPRESSION: Differential diagnosis in this patient includes, 1. Infectious colitis. 2. Viral gastroenteritis. 3. Ischemic bowel disease. 4. Ischemic colitis. PLAN: As the patient's inflammation of the colon was noted on CT scan without p.o. contrast, it is difficult to be confident in this finding. I would recommend that the patient have a complete set of stool studies including culture and sensitivity as well as fecal leukocytes. I would recommend conservative measures. The patient has not had any further bowel movements since her arrival here. We will watch her laboratory studies and symptoms before making any further recommendations though consideration would be repeating a CT scan with oral and I.V. contrast versus a colonoscopy which is less likely as the patient's family would like to be conservative with her care as would we due to the patient's underlying medical conditions. I will follow her clinical course and make further recommendations as needed. Once again, thank you for allowing me to participate in the care of this patient. If you have any further questions, please do not hesitate in contacting me.
[2019-03-04] MEDS: ACETAMINOPHEN 65 ML IV SCH (23:27)
[2019-03-04] MEDS: RASPBERRY SYRUP 5 ML UDP PO SCH (23:56)
[2019-03-04] MEDS: VANCOMYCIN HCL 125 MG/2.5ML SOLN PO SCH (23:56)
[2019-03-05] MEDS: RASPBERRY SYRUP 5 ML UDP PO SCH ×3 (00:02→11:05)
[2019-03-05] MEDS: VANCOMYCIN HCL 125 MG/2.5ML SOLN PO SCH ×3 (00:13→11:05)
[2019-03-05] MEDS ORDERED: SODIUM CHLORIDE 0.9% 1000ML 500 ML IV ONE (00:30)
[2019-03-05] MEDS: metroNIDAZOLE 500 MG/100 ML BAG IV SCH ×3 (03:59→19:52)
[2019-03-05] MEDS: ACETAMINOPHEN 65 ML IV SCH ×3 (06:11→21:49)
[2019-03-05] MEDS: LEVOTHYROXINE SODIUM 75 MCG TABLET PO SCH (06:13)
[2019-03-05 07:35] LABS: Basophils # (auto) 0.02 K/uL (0-0.2); Basophils % (auto) 0.1 %; Eosinophils # (auto) 0.05 K/uL (0-0.5); Eosinophils % (auto) 0.3 %; Hematocrit (blood only) 33.8 % (37-47); Hemoglobin 11.1 g/dL (12.0-16.0); Immature Granulocytes # (auto) 0.06 K/uL (0.00-0.02); Immature Granulocytes % (auto) 0.3 %; Lymphocytes # (auto) 2.09 K/uL (1.2-3.4); Lymphocytes % (auto) 11.3 %; Mean Corpuscular Hgb Conc 32.8 g/dL (32-36); Mean Corpuscular Volume 90.9 fL (80-100); Mean Platelet Volume 10.8 fL (7.4-10.4); Monocytes # (auto) 1.66 K/uL (0.11-0.59); Neutrophils # (auto) 14.63 K/uL (1.4-6.5); Platelet Count 202 K/uL (130-400); RDW Coefficient of Variation 13.4 % (11.5-14.5); RDW Standard Deviation 44.7 fL (36.4-46.3); Red Blood Count 3.72 M/uL (4.2-5.4); White Blood Count 18.51 K/uL (4.8-10.8)
[2019-03-05 08:04] LABS: Albumin Level 2.5 gm/dl (3.4-5.0); BUN Creatinine Ratio 8.9 (10-20); Bilirubin Direct 0.1 mg/dl (0-0.2); Calcium 8.2 mg/dl (8.5-10.1); Creatinine Clr Calc Pharmacy 34.4 ml/min; Est GFR (African American) 64.4; Est GFR (Non-African American) 55.6; Potassium 3.2 mmol/L (3.5-5.1)
[2019-03-05 08:14] LABS: Bilirubin,Total 0.4 mg/dl (0.2-1); Total Protein 5.8 gm/dl (6.4-8.2)
[2019-03-05] MEDS: POTASSIUM CHLORIDE / WTR 10 MEQ/100 ML PLCT IV SCH ×4 (08:36→11:58)
[2019-03-05] MEDS: CIPROFLOXACIN 400 MG/200 ML BAG IV SCH ×2 (08:39→19:51)
[2019-03-05] MEDS: DONEPEZIL HCL 10 MG TAB PO SCH (08:40)
[2019-03-05] MEDS: VENLAFAXINE HCL XR 75 MG CAPXR PO SCH (08:41)
[2019-03-05] MEDS: MEMANTINE HCL 10 MG TAB PO SCH ×2 (08:41→21:34)
[2019-03-05] MEDS: LISINOPRIL 20 MG TAB PO SCH ×2 (09:10→21:34)
--- NOTE | 2019-03-05 10:20 | Gastroenterology Progress Note ---
Date of Service March 05, 2019 Assessment & Plan (1) Lactic acid increased: (2) Nonspecific colitis: Given the CT findings and elevated lactate level as well as reported history of significant constipation prior to admission, suspect and underlying ischemic colitis. 1. Will consult general surgery due to elevated serum lactate, although suspect management will remain conservative at this time. 2. Continue IV Ciprofloxacin and Metronidazole as prescribed. 3. Keep NPO for now until seen by surgery. 4. Supportive care per primary team. Subjective Patient very sedate this morning and no history is able to be obtained. Per nursing, a repeat CT was ordered last night due to elevated lactate level. Imaging reviewed and demonstrated no worsening of the inflammatory/ischemic process. Lactate last evening was 5.3 but repeat testing demonstrated improvement to 2.4 this morning. She does have leukocytosis of 18.51 but remains afebrile and the WBC count is trending down from yesterday. Culture has preliminarily excluded any infectious etiology. Per caregiver at the bedside, patient is chronically constipated. Review of Systems Review of Systems: Unobtainable due to cognitive status Physical Exam Respiratory: normal respiratory effort Auscultation: lungs clear to auscultation bilaterally Cardiovascular: Rate/Rhythm: regular rate and regular rhythm Gastrointestinal (Abdomen): Inspection/Auscultation: + abdomen distended and normal bowel sounds patient winces with palpation of the abdomen. Results & Data Vital Signs (Past 12 Hours) Vital Signs Temp Pulse Pulse Resp BP Pulse Ox 03/05/19 08:34 36.8 C 100 H 20 138/84 96 03/05/19 04:00 37.1 C 105 H 16 133/79 03/05/19 00:00 133 H 03/04/19 23:27 37.1 C 130 H 20 168/91 H 97 Laboratory Results Abnormal lab results 03/04/19 03/04/19 03/04/19 Range/Units 06:32 08:50 10:09 WBC (4.8-10.8) K/uL RBC (4.2-5.4) M/uL Hgb (12.0-16.0) g/dL Hct (37-47) % MPV (7.4-10.4) fL Immature Gran # (Auto) (0.00-0.02) K/uL Neut # (Auto) (1.4-6.5) K/uL Victoria # (Auto) (0.11-0.59) K/uL Potassium (3.5-5.1) mmol/L Chloride (98-107) mmol/L BUN/Creatinine Ratio (10-20) Glucose (70-99) mg/dl POC Lactic Acid Yogesh 2.98 H (0.90-1.70) mmol/L Lactate (0.4-2.0) mmol/L Calcium (8.5-10.1) mg/dl Magnesium 2.5 H (1.8-2.4) mg/dl AST 45 H (15-37) U/L Alkaline Phosphatase 150 H (45-117) U/L Total Protein (6.4-8.2) gm/dl Albumin (3.4-5.0) gm/dl Stl C. diff Tox B Gene Positive Cdiff Gene H (Neg) 03/04/19 03/04/19 03/04/19 Range/Units 13:53 13:53 18:20 WBC 19.57 H (4.8-10.8) K/uL RBC (4.2-5.4) M/uL Hgb (12.0-16.0) g/dL Hct (37-47) % MPV 11.1 H (7.4-10.4) fL Immature Gran # (Auto) 0.05 H (0.00-0.02) K/uL Neut # (Auto) 16.45 H (1.4-6.5) K/uL Victoria # (Auto) 1.57 H (0.11-0.59) K/uL Potassium (3.5-5.1) mmol/L Chloride (98-107) mmol/L BUN/Creatinine Ratio (10-20) Glucose (70-99) mg/dl POC Lactic Acid Yogesh (0.90-1.70) mmol/L Lactate 2.9 H* 5.3 H* (0.4-2.0) mmol/L Calcium (8.5-10.1) mg/dl Magnesium (1.8-2.4) mg/dl AST (15-37) U/L Alkaline Phosphatase (45-117) U/L Total Protein (6.4-8.2) gm/dl Albumin (3.4-5.0) gm/dl Stl C. diff Tox B Gene (Neg) 03/04/19 03/05/19 03/05/19 Range/Units 22:11 07:27 07:27 WBC 19.46 H 18.51 H (4.8-10.8) K/uL RBC 4.16 L 3.72 L (4.2-5.4) M/uL Hgb 11.1 L (12.0-16.0) g/dL Hct 33.8 L (37-47) % MPV 11.1 H 10.8 H (7.4-10.4) fL Immature Gran # (Auto) 0.04 H 0.06 H (0.00-0.02) K/uL Neut # (Auto) 15.67 H 14.63 H (1.4-6.5) K/uL Victoria # (Auto) 1.75 H 1.66 H (0.11-0.59) K/uL Potassium 3.2 L (3.5-5.1) mmol/L Chloride 113 H (98-107) mmol/L BUN/Creatinine Ratio 8.9 L (10-20) Glucose 115 H (70-99) mg/dl POC Lactic Acid Yogesh (0.90-1.70) mmol/L Lactate (0.4-2.0) mmol/L Calcium 8.2 L D (8.5-10.1) mg/dl Magnesium (1.8-2.4) mg/dl AST (15-37) U/L Alkaline Phosphatase (45-117) U/L Total Protein 5.8 L D (6.4-8.2) gm/dl Albumin 2.5 L (3.4-5.0) gm/dl Stl C. diff Tox B Gene (Neg) 03/05/19 Range/Units 07:27 WBC (4.8-10.8) K/uL RBC (4.2-5.4) M/uL Hgb (12.0-16.0) g/dL Hct (37-47) % MPV (7.4-10.4) fL Immature Gran # (Auto) (0.00-0.02) K/uL Neut # (Auto) (1.4-6.5) K/uL Victoria # (Auto) (0.11-0.59) K/uL Potassium (3.5-5.1) mmol/L Chloride (98-107) mmol/L BUN/Creatinine Ratio (10-20) Glucose (70-99) mg/dl POC Lactic Acid Yogesh (0.90-1.70) mmol/L Lactate 2.4 H* (0.4-2.0) mmol/L Calcium (8.5-10.1) mg/dl Magnesium (1.8-2.4) mg/dl AST (15-37) U/L Alkaline Phosphatase (45-117) U/L Total Protein (6.4-8.2) gm/dl Albumin (3.4-5.0) gm/dl Stl C. diff Tox B Gene (Neg)
--- NOTE | 2019-03-05 12:17 | Surgery Consultation ---
Date of Consultation March 05, 2019 Assessment & Plan (1) Colitis with rectal bleedin-year-old demented female with likely ischemic colitis. Her white blood cell count is slightly down and her lactate is improving from yesterday afternoon. CT reveals colitis but no pneumatosis or free air. No surgical intervention indicated at this time Continue medical management for ischemic colitis Hold anticoagulation Continue antibiotics Keep n.p.o. Surgery will follow Present on Admission?: Yes History of Present Illness Attending Physician: Leatha Rodriguez DO History of Present Illness 73-year-old female admitted with colitis, surgery consulted for concern for ischemic colitis with rising lactate. 73-year-old demented female with history of C. difficile colitis in the past presented to the emergency department with several days of watery diarrhea followed by onset of pain in her abdomen on Saturday with bloody diarrhea. She is on anticoagulation. She was admitted yesterday morning and repeat lactate drawn in the afternoon had gone from 2-5. She also had some increasing tachycardia. A repeat CT scan was ordered and showed continued colitis, more focally located in the distal transverse colon, splenic flexure, descending colon and part of the sigmoid colon. She was placed on antibiotics and IV hydration was continued. Her anticoagulation was held. This morning her lactate is downtrending as is her white blood cell count. She has not had any more bloody bowel movements. Patient is a poor historian, but her caregiver says she still appears to be in some pain but it is better than it was yesterday. Her son and daughter are responsible for her care. Allergies Allergy/AdvReac Type Severity Reaction Status Date / Time No Known Allergies Allergy Verified 03/04/19 06:35 Home Medications Home Medications Medication Instructions Recorded Confirmed Type aspirin 81 mg PO QAM 08/27/18 03/04/19 History buspirone 10 mg PO BID 08/27/18 03/04/19 History cholecalciferol (vitamin D3) 1,000 unit PO DAILY 08/27/18 03/04/19 History [Vitamin D3] donepezil 10 mg PO QAM 08/27/18 03/04/19 History levothyroxine 75 mcg PO QAM 08/27/18 03/04/19 History lisinopril 20 mg PO BID 08/27/18 03/04/19 History melatonin 2 mg PO HS 08/27/18 03/04/19 History memantine [Namenda] 10 mg PO BID 08/27/18 03/04/19 History rivaroxaban [Xarelto] 20 mg PO QAM 08/27/18 03/04/19 History simvastatin 20 mg PO QPM 08/27/18 03/04/19 History venlafaxine 37.5 mg PO QPM 08/27/18 03/04/19 History venlafaxine 75 mg PO QAM 08/27/18 03/04/19 History Patient History Medical History Dementia (Chronic) Thyroid disease (Chronic) Hypertension (Chronic) DVT (deep venous thrombosis) Pulmonary embolism Dementia (Acute) C. difficile colitis Diverticulitis Surgical History Hx of hysterectomy (Resolved) Family History Other Family history of heart disease Family history of stroke Social History Preferred Language: Tajik Communication Ability: Impaired Current Living Situation: Family other: Minimally verbal, occasional delusions, ambulatory dysfunction d/t dementia Feels Safe at Home: Yes Safety Concerns: Feels Safe At This Time Smoking Status: Never smoker Hx Alcohol Use: No Hx Substance Use: No Review of Systems Review of Systems: Unobtainable due to cognitive status Physical Exam Constitutional: WD/WN, vitals as above Eyes: PERRL, conjunctivae normal, anicteric sclerae ENMT: external ear and nose normal, oropharynx normal Neck: trachea midline, no thyromegaly Respiratory: normal respiratory effort, lungs clear to auscultation Cardiovascular: Rate/Rhythm: regular rhythm and + tachycardic Gastrointestinal (Abdomen): Inspection/Auscultation: abdomen not distended and + abnormal bowel sounds Percussion/Palpation: + abdomen tender (Mild tenderness to palpation in the left upper and lower quadrants) and abdomen soft; no guarding Musculoskeletal: no cyanosis or clubbing, extremities motor strength 5/5 Skin: no rashes, warm and dry Neurologic: Nonverbal Psychiatric: Cognition: + recent memory not intact and + remote memory not intact Lymphatic: no cervical or axillary lymphadenopathy Results & Data Vital Signs (Past 12 Hours) Vital Signs Temp Pulse Resp BP Pulse Ox 03/05/19 11:00 37.4 C 102 H 20 123/85 95 03/05/19 08:34 36.8 C 100 H 20 138/84 96 03/05/19 04:00 37.1 C 105 H 16 133/79 Laboratory Results Laboratory Results - last 24 hr 03/04/19 03/04/19 03/04/19 13:53 13:53 18:20 WBC 19.57 H RBC 4.35 Hgb 13.1 Hct 39.6 MCV 91.0 MCH 30.1 MCHC 33.1 RDW Std Deviation 43.9 RDW Coeff of Fabiano 13.2 Plt Count 231 MPV 11.1 H Immature Gran % (Auto) 0.3 Neut % (Auto) 84.0 Lymph % (Auto) 7.5 [place] % (Auto) 8.0 Eos % (Auto) 0.1 Baso % (Auto) 0.1 Immature Gran # (Auto) 0.05 H Neut # (Auto) 16.45 H Lymph # (Auto) 1.47 [place] # (Auto) 1.57 H Eos # (Auto) 0.01 Baso # (Auto) 0.02 Sodium Potassium Chloride Carbon Dioxide Anion Gap BUN Creatinine Est Cr Clr Drug Dosing Est GFR ( Amer) Est GFR (Non-Af Amer) BUN/Creatinine Ratio Glucose Lactate 2.9 H* 5.3 H* Calcium Total Bilirubin Direct Bilirubin AST ALT Alkaline Phosphatase Total Protein Albumin Lipase TSH 03/04/19 03/05/19 03/05/19 22:11 07:27 07:27 WBC 19.46 H 18.51 H RBC 4.16 L 3.72 L Hgb 12.5 11.1 L Hct 37.7 33.8 L MCV 90.6 90.9 MCH 30.0 29.8 MCHC 33.2 32.8 RDW Std Deviation 44.1 44.7 RDW Coeff of Fabiano 13.3 13.4 Plt Count 221 202 MPV 11.1 H 10.8 H Immature Gran % (Auto) 0.2 0.3 Neut % (Auto) 80.5 79.0 Lymph % (Auto) 10.1 11.3 [place] % (Auto) 9.0 9.0 Eos % (Auto) 0.1 0.3 Baso % (Auto) 0.1 0.1 Immature Gran # (Auto) 0.04 H 0.06 H Neut # (Auto) 15.67 H 14.63 H Lymph # (Auto) 1.96 2.09 [place] # (Auto) 1.75 H 1.66 H Eos # (Auto) 0.02 0.05 Baso # (Auto) 0.02 0.02 Sodium 144 Potassium 3.2 L Chloride 113 H Carbon Dioxide 26 Anion Gap 5.0 BUN 9 D Creatinine 1.01 Est Cr Clr Drug Dosing 34.4 Est GFR ( Amer) 64.4 Est GFR (Non-Af Amer) 55.6 BUN/Creatinine Ratio 8.9 L Glucose 115 H Lactate Calcium 8.2 L D Total Bilirubin 0.4 Direct Bilirubin 0.1 AST 19 ALT 22 Alkaline Phosphatase 102 Total Protein 5.8 L D Albumin 2.5 L Lipase TSH 0.333 03/05/19 03/05/19 07:27 07:27 WBC RBC Hgb Hct MCV MCH MCHC RDW Std Deviation RDW Coeff of Fabiano Plt Count MPV Immature Gran % (Auto) Neut % (Auto) Lymph % (Auto) [place] % (Auto) Eos % (Auto) Baso % (Auto) Immature Gran # (Auto) Neut # (Auto) Lymph # (Auto) [place] # (Auto) Eos # (Auto) Baso # (Auto) Sodium Potassium Chloride Carbon Dioxide Anion Gap BUN Creatinine Est Cr Clr Drug Dosing Est GFR ( Amer) Est GFR (Non-Af Amer) BUN/Creatinine Ratio Glucose Lactate 2.4 H* Calcium Total Bilirubin Direct Bilirubin AST ALT Alkaline Phosphatase Total Protein Albumin Lipase 77 TSH Diagnostic Findings ABDOMEN AND PELVIS CT WITHOUT CONTRAST CT DOSE: 554.41 mGycm HISTORY: elevated lactate TECHNIQUE: Multiaxial CT images of the abdomen and pelvis were performed without contrast. A dose lowering technique was utilized adhering to the principles of ALARA. COMPARISON STUDY: Abdomen and pelvis CT 03/04/2019. FINDINGS: A few bibasilar linear densities consistent with subsegmental atelectasis. No pneumoperitoneum. No pneumatosis. Old, healed right pelvic bone fractures. A few punctate gallstones. The unenhanced liver, pancreas, spleen, adrenal glands are unremarkable. No renal stones or hydronephrosis. No retroperitoneal lymphadenopathy. The bladder is unremarkable. The uterus is surgically absent. Colonic diverticulosis. Mild to moderate bowel wall thickening involving the distal transverse colon, descending colon, and sigmoid colon with associated pericolonic fat stranding. The ascending colon and proximal to mid transverse colon show no significant bowel wall thickening. This has improved in the interval. No evidence for bowel obstruction. IMPRESSION: No significant change in the distal colonic wall thickening consistent with a nonspecific colitis. This could be due to infectious, inflammatory, or ischemic process. The proximal colonic wall thickening has improved.
[2019-03-05 13:54] LABS: Basophils # (auto) 0.02 K/uL (0-0.2); Basophils % (auto) 0.1 %; Eosinophils # (auto) 0.02 K/uL (0-0.5); Eosinophils % (auto) 0.1 %; Hematocrit (blood only) 33.4 % (37-47); Hemoglobin 11.1 g/dL (12.0-16.0); Immature Granulocytes # (auto) 0.08 K/uL (0.00-0.02); Immature Granulocytes % (auto) 0.4 %; Lymphocytes # (auto) 1.58 K/uL (1.2-3.4); Lymphocytes % (auto) 7.6 %; Mean Corpuscular Hgb Conc 33.2 g/dL (32-36); Mean Corpuscular Volume 90.8 fL (80-100); Mean Platelet Volume 10.7 fL (7.4-10.4); Monocytes # (auto) 1.65 K/uL (0.11-0.59); Monocytes % (auto) 7.9 %; Neutrophils # (auto) 17.56 K/uL (1.4-6.5); Neutrophils % (auto) 83.9 %; Platelet Count 193 K/uL (130-400); RDW Coefficient of Variation 13.5 % (11.5-14.5); RDW Standard Deviation 44.4 fL (36.4-46.3); Red Blood Count 3.68 M/uL (4.2-5.4); White Blood Count 20.91 K/uL (4.8-10.8)
[2019-03-05] MEDS ORDERED: Nursing to Pharmacy Communication ONE (13:55)
[2019-03-05] MEDS ORDERED: LACTATED RINGER'S 1,000 ML IV SCH (14:15)
--- NOTE | 2019-03-05 18:29 | Family Medicine Progress Note ---
Date of Service March 05, 2019 Assessment & Plan (1) Colitis with rectal bleedin-year-old female was admitted on 04 Mar 2019 for N/V/D and rectal bleeding. Colitis with rectal bleeding: Reports of diarrheal illness in past week and recent fevers. On arrival, WBC 20, Hb 12.5, lactate as high as 5.3, now trending down. History of C. diff and diverticulitis in February 2018. 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 CT a/p suggestive of pancolonic wall thickening, severe sigmoid diverticulosis, and cholelithiasis. Question of infectious vs ischemic colitis. - In ED/on admit, treated with PO vancomycin. Shiga toxin, stool culture, WBC stool ordered. Given 2 L normal saline IV bolus then started on LR at 100 ml/hr. Start Cipro and flagyl. Since stopped PO vancomycin, as do not suspect this is active C diff. - Seen by GI acutely (see related notes). Recommended stool studies and initial conservative measures. - Seen by general surgery (see related notes). Recommended medical management, keep NPO. Anemia: Hb down to 11.1. Discussion as above. Vomiting: Reportedly into CPAP mask. pCXR was clear. Hypokalemia: K down to 3.2. Replaced, monitoring. Elevated lipase and AP, Cholelithiasis: Admit lipase 533. Admit AP 150. CT a/p noted cholelithiasis. Ongoing medical issues: - Hypertension, hyperlipidemia: On lisinopril, Zocor. - Dementia, depression: On BuSpar, Aricept, Namenda, venlafaxine. - Thyroid disease: On Synthroid. --- Admission TSH pending. - ADELA: On CPAP. - History of DVT and PE: Held home Xarelto due to rectal bleeding. Code status: Full code. Diet: N.p.o. DVT prophy: Held home Xarelto due to rectal bleeding. PT/OT: Deferred on admit. Disbo: Admit to PCU telemetry. Patient's son Chauncey prefers to be updated as frequently as possible. (2) Anemia: (3) Vomiting: (4) Hypokalemia: (5) Elevated lipase: (6) Elevated alkaline phosphatase level: (7) Cholelithiasis: (8) Hypertension: (9) Hyperlipidemia: (10) Dementia: (11) Depression: (12) Thyroid disease: (13) Obstructive sleep apnea: (14) History of DVT (deep vein thrombosis): (15) History of pulmonary embolus (PE): Supervising Physician Co-Signing Physician Notes I personally examined the patient and verified all draper points of history and exam, discussed case, and agree with decision making with Dr Patel no meaningful HPI review of systems obtainable from patient. Caregiver notes that she appeared uncomfortable before. Vitals noted, in general she is sleeping but moves to stimulus appears to have some left lower quadrant tenderness without any guarding rebound or rigidity, no masses. Breathing is unlabored no accessory muscle use good effort skin shows no rashes no pallor or icterus. No focal neurologic deficits. Abdominal pain/bloody diarrhea/colitisinfectious versus ischemic, currently treatment is the same. Supportive care fluids and antibiotics. Pole Maker input appreciated. Otherwise as above. Pharmacologic DVT prophylaxis contraindicated given bleeding. Mechanical is of questionable benefit. otherwise as above Subjective Found patient resting comfortably earlier this morning. She would open her eyes to voice but then quickly closes them. History is per her caregiver at bedside, as patient has dementia and her caregiver states she rarely speaks. She recounts that the patient had some fever and diarrhea about a week ago. Then two days ago she had some vomiting and diarrhea. She is also had some decreased p.o. intake during this time. Review of Systems Review of Systems: Per HPI as above. Physical Exam Physical Exam: General Appearance: Appears fatigued, responds to voice, overall appears comfortable and in no apparent distress. CV: +S1S2 RRR, no murmur. Pulm: Clear to auscultation throughout. Abdomen: +BS, soft, possibly mild tenderness based on facial expressions to generalized palpation, non-distended. Extremities: No pedal edema bilaterally. Neuro: Difficult to assess due to her fatigue and dementia. She does open her eyes to voice. Results & Data Vital Signs (Past 12 Hours) Vital Signs Temp Pulse Resp BP BP Pulse Ox 03/05/19 15:36 36.7 C 100 H 16 149/88 H 98 03/05/19 11:00 37.4 C 102 H 20 123/85 95 03/05/19 08:34 36.8 C 100 H 20 138/84 96 Laboratory Results 03/05/19 03/05/19 03/05/19 Range/Units 13:45 07:27 07:27 WBC 20.91 H (4.8-10.8) K/uL RBC 3.68 L (4.2-5.4) M/uL Hgb 11.1 L (12.0-16.0) g/dL Hct 33.4 L (37-47) % MCV 90.8 (80-100) fL MCH 30.2 (25-34) pg MCHC 33.2 (32-36) g/dL RDW Std Deviation 44.4 (36.4-46.3) fL RDW Coeff of Fabiano 13.5 (11.5-14.5) % Plt Count 193 (130-400) K/uL MPV 10.7 H (7.4-10.4) fL Immature Gran % (Auto) 0.4 % Neut % (Auto) 83.9 % Lymph % (Auto) 7.6 % [place] % (Auto) 7.9 % Eos % (Auto) 0.1 % Baso % (Auto) 0.1 % Immature Gran # (Auto) 0.08 H (0.00-0.02) K/uL Neut # (Auto) 17.56 H (1.4-6.5) K/uL Lymph # (Auto) 1.58 (1.2-3.4) K/uL [place] # (Auto) 1.65 H (0.11-0.59) K/uL Eos # (Auto) 0.02 (0-0.5) K/uL Baso # (Auto) 0.02 (0-0.2) K/uL Sodium (136-145) mmol/L Potassium (3.5-5.1) mmol/L Chloride (98-107) mmol/L Carbon Dioxide (21-32) mmol/L Anion Gap (3-11) BUN (7-18) mg/dl Creatinine (0.6-1.2) mg/dl Est Cr Clr Drug Dosing ml/min Est GFR ( Amer) Est GFR (Non-Af Amer) BUN/Creatinine Ratio (10-20) Glucose (70-99) mg/dl Lactate 2.4 H* (0.4-2.0) mmol/L Calcium (8.5-10.1) mg/dl Total Bilirubin (0.2-1) mg/dl Direct Bilirubin (0-0.2) mg/dl AST (15-37) U/L ALT (12-78) U/L Alkaline Phosphatase (45-117) U/L Total Protein (6.4-8.2) gm/dl Albumin (3.4-5.0) gm/dl Lipase 77 (73-393) U/L TSH (0.300-4.500) uIu/ml 03/05/19 03/05/19 03/04/19 Range/Units 07:27 07:27 22:11 WBC 18.51 H 19.46 H (4.8-10.8) K/uL RBC 3.72 L 4.16 L (4.2-5.4) M/uL Hgb 11.1 L 12.5 (12.0-16.0) g/dL Hct 33.8 L 37.7 (37-47) % MCV 90.9 90.6 (80-100) fL MCH 29.8 30.0 (25-34) pg MCHC 32.8 33.2 (32-36) g/dL RDW Std Deviation 44.7 44.1 (36.4-46.3) fL RDW Coeff of Fabiano 13.4 13.3 (11.5-14.5) % Plt Count 202 221 (130-400) K/uL MPV 10.8 H 11.1 H (7.4-10.4) fL Immature Gran % (Auto) 0.3 0.2 % Neut % (Auto) 79.0 80.5 % Lymph % (Auto) 11.3 10.1 % [place] % (Auto) 9.0 9.0 % Eos % (Auto) 0.3 0.1 % Baso % (Auto) 0.1 0.1 % Immature Gran # (Auto) 0.06 H 0.04 H (0.00-0.02) K/uL Neut # (Auto) 14.63 H 15.67 H (1.4-6.5) K/uL Lymph # (Auto) 2.09 1.96 (1.2-3.4) K/uL [place] # (Auto) 1.66 H 1.75 H (0.11-0.59) K/uL Eos # (Auto) 0.05 0.02 (0-0.5) K/uL Baso # (Auto) 0.02 0.02 (0-0.2) K/uL Sodium 144 (136-145) mmol/L Potassium 3.2 L (3.5-5.1) mmol/L Chloride 113 H (98-107) mmol/L Carbon Dioxide 26 (21-32) mmol/L Anion Gap 5.0 (3-11) BUN 9 D (7-18) mg/dl Creatinine 1.01 (0.6-1.2) mg/dl Est Cr Clr Drug Dosing 34.4 ml/min Est GFR ( Amer) 64.4 Est GFR (Non-Af Amer) 55.6 BUN/Creatinine Ratio 8.9 L (10-20) Glucose 115 H (70-99) mg/dl Lactate (0.4-2.0) mmol/L Calcium 8.2 L D (8.5-10.1) mg/dl Total Bilirubin 0.4 (0.2-1) mg/dl Direct Bilirubin 0.1 (0-0.2) mg/dl AST 19 (15-37) U/L ALT 22 (12-78) U/L Alkaline Phosphatase 102 (45-117) U/L Total Protein 5.8 L D (6.4-8.2) gm/dl Albumin 2.5 L (3.4-5.0) gm/dl Lipase (73-393) U/L TSH 0.333 (0.300-4.500) uIu/ml 03/04/19 Range/Units 18:20 WBC (4.8-10.8) K/uL RBC (4.2-5.4) M/uL Hgb (12.0-16.0) g/dL Hct (37-47) % MCV (80-100) fL MCH (25-34) pg MCHC (32-36) g/dL RDW Std Deviation (36.4-46.3) fL RDW Coeff of Fabiano (11.5-14.5) % Plt Count (130-400) K/uL MPV (7.4-10.4) fL Immature Gran % (Auto) % Neut % (Auto) % Lymph % (Auto) % [place] % (Auto) % Eos % (Auto) % Baso % (Auto) % Immature Gran # (Auto) (0.00-0.02) K/uL Neut # (Auto) (1.4-6.5) K/uL Lymph # (Auto) (1.2-3.4) K/uL [place] # (Auto) (0.11-0.59) K/uL Eos # (Auto) (0-0.5) K/uL Baso # (Auto) (0-0.2) K/uL Sodium (136-145) mmol/L Potassium (3.5-5.1) mmol/L Chloride (98-107) mmol/L Carbon Dioxide (21-32) mmol/L Anion Gap (3-11) BUN (7-18) mg/dl Creatinine (0.6-1.2) mg/dl Est Cr Clr Drug Dosing ml/min Est GFR ( Amer) Est GFR (Non-Af Amer) BUN/Creatinine Ratio (10-20) Glucose (70-99) mg/dl Lactate 5.3 H* (0.4-2.0) mmol/L Calcium (8.5-10.1) mg/dl Total Bilirubin (0.2-1) mg/dl Direct Bilirubin (0-0.2) mg/dl AST (15-37) U/L ALT (12-78) U/L Alkaline Phosphatase (45-117) U/L Total Protein (6.4-8.2) gm/dl Albumin (3.4-5.0) gm/dl Lipase (73-393) U/L TSH (0.300-4.500) uIu/ml Medications Administered Current Inpatient Medications Buspirone HCl (Buspar) 10 mg PO BID [facility] Stop: 04/03/19 20:59 Last Admin: 03/05/19 08:41 Dose: 10 mg Documented by: Donepezil HCl (Aricept) 10 mg PO QAM [facility] Stop: 04/04/19 08:59 Last Admin: 03/05/19 08:40 Dose: 10 mg Documented by: Ciprofloxacin (Cipro) 400 mg in 200 mls @ 100 mls/hr IV Q12H [facility] Stop: 03/14/19 19:59 Last Infusion: 03/05/19 10:43 Dose: Infused Documented by: Metronidazole (Flagyl) 500 mg in 100 mls @ 100 mls/hr IV Q8H [facility] Stop: 03/14/19 19:59 Last Infusion: 03/05/19 12:01 Dose: Infused Documented by: Acetaminophen (Ofirmev) 65 mls @ 200 mls/hr IV Q8H [facility] Stop: 04/03/19 21:59 Last Infusion: 03/05/19 13:58 Dose: Infused Documented by: Lactated Ringer's (Lr) 1,000 mls @ 100 mls/hr IV .Q10H [facility] Stop: 04/04/19 14:14 Last Admin: 03/05/19 14:18 Dose: 100 mls/hr Documented by: Levothyroxine Sodium (Synthroid) 75 mcg PO DAILYBB [facility] Stop: 04/04/19 06:29 Last Admin: 03/05/19 06:13 Dose: Not Given Documented by: Lisinopril (Zestril) 20 mg PO BID [facility] Stop: 04/03/19 20:59 Last Admin: 03/05/19 09:10 Dose: 20 mg Documented by: Memantine (Namenda) 10 mg PO BID [facility] Stop: 04/03/19 20:59 Last Admin: 03/05/19 08:41 Dose: 10 mg Documented by: Ondansetron HCl (Zofran) 4 mg IV Q6H PRN PRN Reason: Nausea Stop: 04/03/19 13:03 Simvastatin (Zocor) 20 mg PO QPM [facility] Stop: 04/03/19 20:59 Last Admin: 03/04/19 21:52 Dose: Not Given Documented by: Venlafaxine HCl (Effexor Extended Release) 37.5 mg PO QPM [facility] Stop: 04/03/19 20:59 Last Admin: 03/04/19 21:52 Dose: Not Given Documented by: Venlafaxine HCl (Effexor Extended Release) 75 mg PO QAM [facility] Stop: 04/04/19 08:59 Last Admin: 03/05/19 08:41 Dose: 75 mg Documented by: Resident Activity Tracking Resident Involvement: Resident Care Provided Care Provided: Adult Hospital Medicine (1) Dementia Dementia behavioral disturbance: without behavioral disturbance Dementia type: unspecified type Qualified Code(s): F03.90 - Unspecified dementia without behavioral disturbance (2) Depression Depression Type: unspecified Qualified Code(s): F32.9 - Major depressive disorder, single episode, unspecified (3) Hypertension Hypertension type: essential hypertension Qualified Code(s): I10 - Essential (primary) hypertension
[2019-03-05] MEDS: D5W AND LACTATED RINGERS 1,000 ML IV SCH (20:31)
[2019-03-05] MEDS: SIMVASTATIN 20 MG TAB PO SCH (21:34)
[2019-03-05] MEDS: VENLAFAXINE HCL XR 37.5 MG CAPXR PO SCH (21:34)
[2019-03-06] MEDS: metroNIDAZOLE 500 MG/100 ML BAG IV SCH ×3 (04:24→20:50)
[2019-03-06] MEDS: ACETAMINOPHEN 65 ML IV SCH ×3 (06:20→22:36)
[2019-03-06] MEDS: LEVOTHYROXINE SODIUM 75 MCG TABLET PO SCH (06:31)
[2019-03-06 07:09] LABS: Basophils # (auto) 0.02 K/uL (0-0.2); Basophils % (auto) 0.1 %; Eosinophils # (auto) 0.06 K/uL (0-0.5); Eosinophils % (auto) 0.3 %; Hematocrit (blood only) 32.8 % (37-47); Hemoglobin 10.9 g/dL (12.0-16.0); Immature Granulocytes # (auto) 0.07 K/uL (0.00-0.02); Immature Granulocytes % (auto) 0.3 %; Lymphocytes # (auto) 1.88 K/uL (1.2-3.4); Lymphocytes % (auto) 8.8 %; Mean Corpuscular Hgb Conc 33.2 g/dL (32-36); Mean Corpuscular Volume 90.4 fL (80-100); Mean Platelet Volume 10.7 fL (7.4-10.4); Monocytes # (auto) 1.43 K/uL (0.11-0.59); Monocytes % (auto) 6.7 %; Neutrophils # (auto) 17.94 K/uL (1.4-6.5); Neutrophils % (auto) 83.8 %; Platelet Count 179 K/uL (130-400); RDW Coefficient of Variation 13.4 % (11.5-14.5); RDW Standard Deviation 44.3 fL (36.4-46.3); Red Blood Count 3.63 M/uL (4.2-5.4)
[2019-03-06 07:48] LABS: Albumin Globulin Ratio 0.7 (0.9-2); Albumin Level 2.4 gm/dl (3.4-5.0); BUN Creatinine Ratio 5.7 (10-20); Bilirubin,Total 0.4 mg/dl (0.2-1); Calcium 8.3 mg/dl (8.5-10.1); Creatinine Clr Calc Pharmacy 50.3 ml/min; Est GFR (African American) 100.8; Globulin 3.3 gm/dl (2.5-4.0); Potassium 2.9 mmol/L (3.5-5.1); Total Protein 5.7 gm/dl (6.4-8.2)
--- NOTE | 2019-03-06 07:57 | Surgery Progress Note ---
Date of Service March 06, 2019 Assessment & Plan (1) Nonspecific colitis: possible ischemic colitis WBC 21, lactate normalized, exam benign Subjective no new events overnight Physical Exam Gastrointestinal (Abdomen): Inspection/Auscultation: abdomen not distended Percussion/Palpation: abdomen soft; abdomen nontender Results & Data Vital Signs (Past 12 Hours) Vital Signs Temp Pulse Pulse Resp BP Pulse Ox 03/06/19 07:45 37.1 C 101 H 20 132/77 95 03/06/19 04:00 37.1 C 99 H 16 155/93 H 97 03/06/19 00:00 37.1 C 120 H 101 H 142/85 H 95
[2019-03-06] MEDS: CIPROFLOXACIN 400 MG/200 ML BAG IV SCH ×2 (08:07→20:50)
[2019-03-06] MEDS: D5W AND LACTATED RINGERS 1,000 ML IV SCH ×2 (08:07→18:31)
[2019-03-06] MEDS: DONEPEZIL HCL 10 MG TAB PO SCH (10:10)
[2019-03-06] MEDS: LISINOPRIL 20 MG TAB PO SCH ×2 (10:10→20:56)
[2019-03-06] MEDS: MEMANTINE HCL 10 MG TAB PO SCH ×2 (10:10→20:56)
[2019-03-06] MEDS: VENLAFAXINE HCL XR 75 MG CAPXR PO SCH (10:10)
[2019-03-06] MEDS: POTASSIUM CHLORIDE / WTR 10 MEQ/100 ML PLCT IV SCH ×4 (10:45→14:55)
--- NOTE | 2019-03-06 14:53 | Family Medicine Progress Note ---
Date of Service March 06, 2019 Assessment & Plan (1) Colitis with rectal bleedin-year-old female was admitted on 04 Mar 2019 for N/V/D and rectal bleeding. Colitis with rectal bleeding: Reports of diarrheal illness in past week and recent fevers. History of C. diff and diverticulitis in February 2018. 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 CT a/p suggestive of pancolonic wall thickening, severe sigmoid diverticulosis, and cholelithiasis. Question of infectious vs ischemic colitis. Negative salmonella, shigella, campylobacter. 29May started Cipro and Flagyl. On D5LR at 100 mL/hr. - Seen by GI (see related notes). Recommended stool studies, IV antibiotics, and initial conservative measures. - Seen by general surgery (see related notes). Recommended medical management. Anemia: Hb stable at about 11. Monitoring. Vomiting: Reportedly into CPAP mask. pCXR was clear. Hypokalemia: K as low as 2.9. Replaced, monitoring. Mg 2.5. Elevated lipase and AP, Cholelithiasis: Admit lipase 533. Admit AP 150, since improved. CT a/p noted cholelithiasis. Ongoing medical issues: - Hypertension, hyperlipidemia: On lisinopril, Zocor. - Dementia, depression: On BuSpar, Aricept, Namenda, venlafaxine. - Thyroid disease: On Synthroid. --- Admission TSH pending. - ADELA: On CPAP. - History of DVT and PE: Held home Xarelto due to rectal bleeding. Code status: Full code. Diet: Clears DVT prophy: Held home Xarelto due to rectal bleeding. PT/OT: Deferred on admit. Disbo: Admit to PCU telemetry. Patient's son Chauncey prefers to be updated as frequently as possible. - Will transfer to med surg. (2) Anemia: (3) Vomiting: (4) Hypokalemia: (5) Elevated lipase: (6) Elevated alkaline phosphatase level: (7) Cholelithiasis: (8) Hypertension: (9) Hyperlipidemia: (10) Dementia: (11) Depression: (12) Thyroid disease: (13) Obstructive sleep apnea: (14) History of DVT (deep vein thrombosis): (15) History of pulmonary embolus (PE): Supervising Physician Co-Signing Physician Notes I personally examined the patient and verified all draper points of history and exam, discussed case, and agree with decision making with Dr Patel no meaningful HPI review of systems obtainable from patient. That said, she is much brighter and is at least somewhat talkative, if not nonsensical. Caregiver notes that she has not had any notable diarrhea Vitals noted, in general she is awake and alert, disoriented but this appears to be chronic. No distress. HEENT normocephalic atraumatic mucous members moist. Abdomen is soft nondistended may be minimal left lower quadrant tenderness but certainly nothing of significance no guarding rebound or rigidity. Abdominal pain/bloody diarrhea/colitisinfectious versus ischemic, currently tr eatment is the same, and currently improving. Stable for transfer to medical, advance diet. Pharmacologic DVT prophylaxis contraindicated given bleeding. Mechanical is of questionable benefit. otherwise as above Subjective Found patient lying somewhat upright in her bed this morning, eyes open. She seems much more alert than yesterday. She mouths the words good morning. When asked if she has any pain she nods her head "no" and similarly nods no when asked if pressing on her abdomen hurts. Her caregiver at bedside reports no particular overnight events noted. Review of Systems Review of Systems: Per HPI as above. Physical Exam Physical Exam: General Appearance: Awake, more alert, appears overall comfortable, does not appear in acute distress. CV: +S1S2 RRR, no murmur. Pulm: Clear to auscultation throughout. Abdomen: +BS, soft, non-tender, non-distended. Extremities: No pedal edema or calf tenderness. Neuro: No gross neuro deficits. Baseline dementia. Results & Data Vital Signs (Past 12 Hours) Vital Signs Temp Pulse Pulse Resp BP Pulse Ox 03/06/19 11:09 36.9 C 98 H 22 162/92 H 97 03/06/19 08:00 102 H 03/06/19 07:45 37.1 C 101 H 20 132/77 95 03/06/19 04:00 37.1 C 99 H 16 155/93 H 97 Laboratory Results 03/06/19 03/06/19 03/06/19 Range/Units 07:02 07:02 07:02 WBC 21.40 H (4.8-10.8) K/uL RBC 3.63 L (4.2-5.4) M/uL Hgb 10.9 L (12.0-16.0) g/dL Hct 32.8 L (37-47) % MCV 90.4 (80-100) fL MCH 30.0 (25-34) pg MCHC 33.2 (32-36) g/dL RDW Std Deviation 44.3 (36.4-46.3) fL RDW Coeff of Fabiano 13.4 (11.5-14.5) % Plt Count 179 (130-400) K/uL MPV 10.7 H (7.4-10.4) fL Immature Gran % (Auto) 0.3 % Neut % (Auto) 83.8 % Lymph % (Auto) 8.8 % [place] % (Auto) 6.7 % Eos % (Auto) 0.3 % Baso % (Auto) 0.1 % Immature Gran # (Auto) 0.07 H (0.00-0.02) K/uL Neut # (Auto) 17.94 H (1.4-6.5) K/uL Lymph # (Auto) 1.88 (1.2-3.4) K/uL [place] # (Auto) 1.43 H (0.11-0.59) K/uL Eos # (Auto) 0.06 (0-0.5) K/uL Baso # (Auto) 0.02 (0-0.2) K/uL Sodium 140 (136-145) mmol/L Potassium 2.9 L (3.5-5.1) mmol/L Chloride 110 H (98-107) mmol/L Carbon Dioxide 24 (21-32) mmol/L Anion Gap 6.0 (3-11) BUN 4 L D (7-18) mg/dl Creatinine 0.69 D (0.6-1.2) mg/dl Est Cr Clr Drug Dosing 50.3 ml/min Est GFR ( Amer) 100.8 Est GFR (Non-Af Amer) 87.0 BUN/Creatinine Ratio 5.7 L (10-20) Glucose 132 H (70-99) mg/dl Lactate 1.0 (0.4-2.0) mmol/L Calcium 8.3 L (8.5-10.1) mg/dl Total Bilirubin 0.4 (0.2-1) mg/dl AST 17 (15-37) U/L ALT 19 (12-78) U/L Alkaline Phosphatase 98 (45-117) U/L Total Protein 5.7 L (6.4-8.2) gm/dl Albumin 2.4 L (3.4-5.0) gm/dl Globulin 3.3 (2.5-4.0) gm/dl Albumin/Globulin Ratio 0.7 L (0.9-2) Medications Administered Current Inpatient Medications Buspirone HCl (Buspar) 10 mg PO BID [facility] Stop: 04/03/19 20:59 Last Admin: 03/06/19 10:10 Dose: Not Given Documented by: Donepezil HCl (Aricept) 10 mg PO QAM [facility] Stop: 04/04/19 08:59 Last Admin: 03/06/19 10:10 Dose: Not Given Documented by: Ciprofloxacin (Cipro) 400 mg in 200 mls @ 100 mls/hr IV Q12H [facility] Stop: 03/14/19 19:59 Last Infusion: 03/06/19 10:11 Dose: Infused Documented by: Metronidazole (Flagyl) 500 mg in 100 mls @ 100 mls/hr IV Q8H [facility] Stop: 03/14/19 19:59 Last Infusion: 03/06/19 13:45 Dose: Infused Documented by: Acetaminophen (Ofirmev) 65 mls @ 200 mls/hr IV Q8H [facility] Stop: 04/03/19 21:59 Last Infusion: 03/06/19 08:07 Dose: Infused Documented by: Dextrose/Lactated Ringer's (D5w And Lactated Ringers) 1,000 mls @ 100 mls/hr IV .Q10H [facility] Stop: 04/04/19 18:59 Last Admin: 03/06/19 08:07 Dose: 100 mls/hr Documented by: Levothyroxine Sodium (Synthroid) 75 mcg PO DAILYBB [facility] Stop: 04/04/19 06:29 Last Admin: 03/06/19 06:31 Dose: Not Given Documented by: Lisinopril (Zestril) 20 mg PO BID [facility] Stop: 04/03/19 20:59 Last Admin: 03/06/19 10:10 Dose: Not Given Documented by: Memantine (Namenda) 10 mg PO BID [facility] Stop: 04/03/19 20:59 Last Admin: 03/06/19 10:10 Dose: Not Given Documented by: Ondansetron HCl (Zofran) 4 mg IV Q6H PRN PRN Reason: Nausea Stop: 04/03/19 13:03 Simvastatin (Zocor) 20 mg PO QPM [facility] Stop: 04/03/19 20:59 Last Admin: 03/05/19 21:34 Dose: Not Given Documented by: Venlafaxine HCl (Effexor Extended Release) 37.5 mg PO QPM [facility] Stop: 04/03/19 20:59 Last Admin: 03/05/19 21:34 Dose: Not Given Documented by: Venlafaxine HCl (Effexor Extended Release) 75 mg PO QAM [facility] Stop: 04/04/19 08:59 Last Admin: 03/06/19 10:10 Dose: Not Given Documented by: Resident Activity Tracking Resident Involvement: Resident Care Provided Care Provided: Adult Hospital Medicine (1) Dementia Dementia behavioral disturbance: without behavioral disturbance Dementia type : unspecified type Qualified Code(s): F03.90 - Unspecified dementia without behavioral disturbance (2) Depression Depression Type: unspecified Qualified Code(s): F32.9 - Major depressive disorder, single episode, unspecified (3) Hypertension Hypertension type: essential hypertension Qualified Code(s): I10 - Essential (primary) hypertension
[2019-03-06] MEDS: POTASSIUM CHLORIDE 20 MEQ TABCR PO SCH (20:47)
[2019-03-06] MEDS: SIMVASTATIN 20 MG TAB PO SCH (20:56)
[2019-03-06] MEDS: VENLAFAXINE HCL XR 37.5 MG CAPXR PO SCH (22:30)
[2019-03-07] MEDS: D5W AND LACTATED RINGERS 1,000 ML IV SCH ×3 (02:09→20:30)
[2019-03-07] MEDS: metroNIDAZOLE 500 MG/100 ML BAG IV SCH ×3 (03:19→20:43)
[2019-03-07] MEDS: HydrALAZINE HCL 20 MG/ML VIAL IV ONE ×2 (04:20→04:23)
[2019-03-07] MEDS: ACETAMINOPHEN 65 ML IV SCH ×2 (06:13→14:12)
[2019-03-07] MEDS: LEVOTHYROXINE SODIUM 75 MCG TABLET PO SCH (06:19)
[2019-03-07] MEDS: MEMANTINE HCL 10 MG TAB PO SCH ×2 (08:12→20:44)
[2019-03-07] MEDS: LISINOPRIL 20 MG TAB PO SCH ×2 (08:12→20:43)
[2019-03-07] MEDS: DONEPEZIL HCL 10 MG TAB PO SCH (08:12)
[2019-03-07] MEDS: CIPROFLOXACIN 400 MG/200 ML BAG IV SCH ×2 (08:13→20:26)
[2019-03-07] MEDS: VENLAFAXINE HCL XR 75 MG CAPXR PO SCH (08:22)
--- NOTE | 2019-03-07 08:23 | Surgery Progress Note ---
Date of Service March 07, 2019 Assessment & Plan (1) Nonspecific colitis: Will keep IVF Continue clears IV abx Labs pending No fevers and pain minimal Con't present care Subjective Patient reported some discomfort last night, none this AM Didn't take po well, con't IVF No fevers Review of Systems Constitutional: no fever and no chills Respiratory: no dyspnea Cardiovascular: no chest pain and no dyspnea Gastrointestinal: no abdominal pain, no nausea and no vomiting Integumentary: no problem reported Physical Exam Constitutional: WD/WN, vitals as above Respiratory: normal respiratory effort, lungs clear to auscultation Cardiovascular: RRR, no murmur, no edema Gastrointestinal (Abdomen): Inspection/Auscultation: abdomen normal to inspection and normal bowel sounds; abdomen not distended Percussion/Palpation: + abdomen tender (mild); no guarding Musculoskeletal: Head/Neck/Chest: normocephalic and head atraumatic Results & Data Vital Signs (Past 12 Hours) Vital Signs Temp Pulse Resp BP Pulse Ox 03/07/19 07:26 36.8 C 102 H 18 132/84 96 03/07/19 05:45 101 H 162/96 H 03/07/19 03:30 103 H 185/95 H 03/06/19 23:31 36.7 C 102 H 18 176/105 H 97
[2019-03-07 08:34] LABS: Basophils # (auto) 0.02 K/uL (0-0.2); Basophils % (auto) 0.1 %; Eosinophils # (auto) 0.09 K/uL (0-0.5); Eosinophils % (auto) 0.4 %; Hematocrit (blood only) 35.1 % (37-47); Hemoglobin 11.6 g/dL (12.0-16.0); Immature Granulocytes # (auto) 0.07 K/uL (0.00-0.02); Immature Granulocytes % (auto) 0.3 %; Lymphocytes # (auto) 1.95 K/uL (1.2-3.4); Lymphocytes % (auto) 9.1 %; Mean Corpuscular Volume 90.7 fL (80-100); Mean Platelet Volume 10.7 fL (7.4-10.4); Monocytes # (auto) 1.24 K/uL (0.11-0.59); Monocytes % (auto) 5.8 %; Neutrophils # (auto) 18.07 K/uL (1.4-6.5); Neutrophils % (auto) 84.3 %; Platelet Count 193 K/uL (130-400); RDW Coefficient of Variation 13.4 % (11.5-14.5); RDW Standard Deviation 44.2 fL (36.4-46.3); Red Blood Count 3.87 M/uL (4.2-5.4); White Blood Count 21.44 K/uL (4.8-10.8)
[2019-03-07 08:59] LABS: BUN Creatinine Ratio 6.8 (10-20); Calcium 8.9 mg/dl (8.5-10.1); Creatinine Clr Calc Pharmacy 44.5 ml/min; Potassium 3.7 mmol/L (3.5-5.1)
[2019-03-07] MEDS: POTASSIUM CHLORIDE 20 MEQ TABCR PO SCH (09:34)
--- NOTE | 2019-03-07 16:14 | Family Medicine Progress Note ---
Date of Service March 07, 2019 Assessment & Plan (1) Colitis with rectal bleedin-year-old female was admitted on 04 Mar 2019 for N/V/D and rectal bleeding. Colitis with rectal bleeding: Reports of diarrheal illness in past week and recent fevers. History of C. diff and diverticulitis in February 2018. 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 CT a/p suggestive of pancolonic wall thickening, severe sigmoid diverticulosis, and cholelithiasis. Question of infectious vs ischemic colitis. Negative salmonella, shigella, campylobacter. 29May started Cipro and Flagyl. On D5LR at 100 mL/hr. - Seen by GI (see related notes). Recommended stool studies, IV antibiotics, and initial conservative measures. - Seen by general surgery (see related notes). Recommended medical management. - Diarrhea and vomiting improved. Diet advanced to solids. WBC remains elevated but clinically improving with benign abdominal exam. If clinically deteriorates and WBC remains elevated will consider repeat abdominal imaging to rule out abscess development Anemia: Hb stable at about 11. Monitoring. Vomiting: Improved Reportedly into CPAP mask. pCXR was clear. Hypokalemia: Improved K 3.7 today Elevated lipase and AP, Cholelithiasis: Admit lipase 533. Admit AP 150, since improved. CT a/p noted cholelithiasis. Ongoing medical issues: - Hypertension, hyperlipidemia: On lisinopril, Zocor. - Dementia, depression: On BuSpar, Aricept, Namenda, venlafaxine. - Thyroid disease: On Synthroid. --- Admission TSH pending. - ADELA: On CPAP. - History of DVT and PE: Held home Xarelto due to rectal bleeding. Code status: Full code. Diet: Heart Healthy low fiber DVT prophy: Held home Xarelto due to rectal bleeding. PT/OT: Deferred on admit. Dispo: Admit to PCU telemetry. Patient's son Chauncey prefers to be updated as frequently as possible. (2) Anemia: (3) Vomiting: (4) Hypokalemia: (5) Elevated lipase: (6) Elevated alkaline phosphatase level: (7) Cholelithiasis: (8) Hypertension: (9) Hyperlipidemia: (10) Dementia: (11) Depression: (12) Thyroid disease: (13) Obstructive sleep apnea: (14) History of DVT (deep vein thrombosis): (15) History of pulmonary embolus (PE): Supervising Physician Co-Signing Physician Notes I personally examined the patient and verified all draper points of history and exam, discussed case, and agree with decision making with Dr Cox no meaningful HPI review of systems obtainable from patient. Caregiver notes she has been bright and alert all day, eating well. No problems. Vitals noted, in general she is awake and alert, disoriented appearing to be her chronic state. No distress. HEENT normocephalic atraumatic mucous members moist. Abdomen is soft nondistended maybe minimal left lower quadrant tenderness but at least the same as, if not better than yesterday. No guarding no rebound no rigidity Abdominal pain/bloody diarrhea/colitisinfectious versus ischemic, currently treatment is the same, and currently improving. Advance diet. Leukocytosis noted, the fact that it slow to resolve is a little bit troubling, but more than likely is just residual inflammation from her colon infection. Should she show any clinical plateau in improvement with her colitis, we would repeat CT to ensure the leukocytosis is not a sign of abscess, but this seems unlikely. Otherwise we would definitely want to ensure that she has serial CBCs until her white count normalizes, and if it does not normalize over reasonable period of time of 1 to 2 weeks, then would want to get a peripheral smear and work-up as a potential hematologic problem. Both of these seem quite unlikely. Pharmacologic DVT prophylaxis contraindicated given bleeding. Mechanical is of questionable benefit. otherwise as above Subjective Patient shakes head saying no to any discomfort this AM. On re-evaluation medicare specialist also believes smiling more and looks better compared to 2 days ago. Per nursing team no vomiting or diarrhea noted No fevers Otherwise history limited due to patient being demented Review of Systems Review of Systems: As per HPI limited due to patient being demented Physical Exam Physical Exam: General: Pleasant in no acute distress, resting in bed CV: RRR no m/r/g appreciated Pulm: CTAB, equal breath sounds bilaterally Abdomen: +BS, nondistended, non tender to palpation all quadrants LE: No lower extremity edema or calf tenderness Results & Data Vital Signs (Past 12 Hours) Vital Signs Temp Pulse Resp BP Pulse Ox 03/07/19 15:36 37.0 C 108 H 20 127/77 97 03/07/19 07:26 36.8 C 102 H 18 132/84 96 03/07/19 05:45 101 H 162/96 H Laboratory Results Abnormal lab results 03/07/19 03/07/19 Range/Units 08:19 08:22 WBC 21.44 H (4.8-10.8) K/uL RBC 3.87 L (4.2-5.4) M/uL Hgb 11.6 L (12.0-16.0) g/dL Hct 35.1 L (37-47) % MPV 10.7 H (7.4-10.4) fL Immature Gran # (Auto) 0.07 H (0.00-0.02) K/uL Neut # (Auto) 18.07 H (1.4-6.5) K/uL [place] # (Auto) 1.24 H (0.11-0.59) K/uL Sodium 146 H (136-145) mmol/L Chloride 115 H (98-107) mmol/L BUN 5 L (7-18) mg/dl BUN/Creatinine Ratio 6.8 L (10-20) Glucose 130 H (70-99) mg/dl Medications Administered Current Inpatient Medications Buspirone HCl (Buspar) 10 mg PO BID [facility] Stop: 04/03/19 20:59 Last Admin: 03/07/19 08:13 Dose: 10 mg Documented by: Donepezil HCl (Aricept) 10 mg PO QAM [facility] Stop: 04/04/19 08:59 Last Admin: 03/07/19 08:12 Dose: 10 mg Documented by: Ciprofloxacin (Cipro) 400 mg in 200 mls @ 100 mls/hr IV Q12H [facility] Stop: 03/14/19 19:59 Last Infusion: 03/07/19 10:14 Dose: Infused Documented by: Metronidazole (Flagyl) 500 mg in 100 mls @ 100 mls/hr IV Q8H [facility] Stop: 03/14/19 19:59 Last Infusion: 03/07/19 12:25 Dose: Infused Documented by: Acetaminophen (Ofirmev) 65 mls @ 200 mls/hr IV Q8H [facility] Stop: 04/03/19 21:59 Last Infusion: 03/07/19 14:34 Dose: Infused Documented by: Dextrose/Lactated Ringer's (D5w And Lactated Ringers) 1,000 mls @ 100 mls/hr IV .Q10H [facility] Stop: 04/04/19 18:59 Last Admin: 03/07/19 10:50 Dose: 100 mls/hr Documented by: Levothyroxine Sodium (Synthroid) 75 mcg PO DAILYBB [facility] Stop: 04/04/19 06:29 Last Admin: 03/07/19 06:19 Dose: 75 mcg Documented by: Lisinopril (Zestril) 20 mg PO BID [facility] Stop: 04/03/19 20:59 Last Admin: 03/07/19 08:12 Dose: 20 mg Documented by: Memantine (Namenda) 10 mg PO BID [facility] Stop: 04/03/19 20:59 Last Admin: 03/07/19 08:12 Dose: 10 mg Documented by: Ondansetron HCl (Zofran) 4 mg IV Q6H PRN PRN Reason: Nausea Stop: 04/03/19 13:03 Potassium Chloride (Klor-Con M20) 20 meq PO QAM [facility] Stop: 04/05/19 19:14 Last Admin: 03/07/19 09:34 Dose: 20 meq Documented by: Simvastatin (Zocor) 20 mg PO QPM [facility] Stop: 04/03/19 20:59 Last Admin: 03/06/19 20:56 Dose: 20 mg Documented by: Venlafaxine HCl (Effexor Extended Release) 37.5 mg PO QPM [facility] Stop: 04/03/19 20:59 Last Admin: 03/06/19 22:30 Dose: 37.5 mg Documented by: Venlafaxine HCl (Effexor Extended Release) 75 mg PO QAM [facility] Stop: 04/04/19 08:59 Last Admin: 03/07/19 08:22 Dose: 75 mg Documented by: Resident Activity Tracking Resident Involvement: Resident Care Provided Care Provided: Adult Hospital Medicine (1) Dementia Dementia behavioral disturbance: without behavioral disturbance Dementia type: unspecified type Qualified Code(s): F03.90 - Unspecified dementia without behavioral disturbance (2) Depression Depression Type: unspecified Qualified Code(s): F32.9 - Major depressive disorder, single episode, unspecified (3) Hypertension Hypertension type: essential hypertension Qualified Code(s): I10 - Essential (primary) hypertension
--- NOTE | 2019-03-07 18:52 | Family Medicine Progress Note ---
Date of Service March 07, 2019 Subjective Please see separate documentation from the same date for actual clinical information. Today the EMR was changed to allow for in-EMR coding entry, and unfortunately residency documentation was on the older notes. This note was generated simply to allow entry of the proper codes, but the separate note/same date contains the actual clinical information. This should be a one-time issue, and I apologize for any confusion. Results & Data Vital Signs (Past 12 Hours) Vital Signs Temp Pulse Resp BP Pulse Ox 03/07/19 15:36 37.0 C 108 H 20 127/77 97 03/07/19 07:26 36.8 C 102 H 18 132/84 96
[2019-03-07] MEDS: SIMVASTATIN 20 MG TAB PO SCH (20:43)
[2019-03-07] MEDS: VENLAFAXINE HCL XR 37.5 MG CAPXR PO SCH (20:46)
[2019-03-08] MEDS: ACETAMINOPHEN 65 ML IV SCH ×3 (00:11→13:29)
[2019-03-08] MEDS: metroNIDAZOLE 500 MG/100 ML BAG IV SCH ×2 (04:08→11:59)
[2019-03-08] MEDS: LEVOTHYROXINE SODIUM 75 MCG TABLET PO SCH (06:33)
[2019-03-08] MEDS: D5W AND LACTATED RINGERS 1,000 ML IV SCH (06:38)
[2019-03-08] MEDS: DONEPEZIL HCL 10 MG TAB PO SCH (08:20)
[2019-03-08] MEDS: CIPROFLOXACIN 400 MG/200 ML BAG IV SCH (08:20)
--- NOTE | 2019-03-08 08:20 | Surgery Progress Note ---
Date of Service March 08, 2019 Assessment & Plan (1) Nonspecific colitis: Continue abx No surgical issues WBC still elevated but clinically improving Present on Admission?: Yes Subjective More alert this AM No complaints taking po a little better Review of Systems Constitutional: no fever and no chills Respiratory: no dyspnea Cardiovascular: no chest pain Gastrointestinal: + change in stools (stil some liquid BMs); no abdominal pain, no nausea and no vomiting Physical Exam Constitutional: no acute distress Respiratory: normal respiratory effort, lungs clear to auscultation no respiratory distress Cardiovascular: RRR, no murmur, no edema Gastrointestinal (Abdomen): Inspection/Auscultation: abdomen normal to inspection and normal bowel sounds; abdomen not distended Percussion/Palpation: + abdomen tender (mild); no guarding Skin: no rashes, warm and dry Results & Data Vital Signs (Past 12 Hours) Vital Signs Temp Pulse Resp BP Pulse Ox 03/08/19 06:51 36.9 C 78 16 138/82 96 03/07/19 23:15 37.3 C 112 H 18 171/122 H 94
[2019-03-08] MEDS: LISINOPRIL 20 MG TAB PO SCH (08:21)
[2019-03-08] MEDS: POTASSIUM CHLORIDE 20 MEQ TABCR PO SCH (08:21)
[2019-03-08] MEDS: VENLAFAXINE HCL XR 75 MG CAPXR PO SCH (08:21)
[2019-03-08] MEDS: MEMANTINE HCL 10 MG TAB PO SCH (08:21)
[2019-03-08 09:35] LABS: Basophils # (auto) 0.02 K/uL (0-0.2); Basophils % (auto) 0.1 %; Eosinophils # (auto) 0.21 K/uL (0-0.5); Eosinophils % (auto) 1.4 %; Hemoglobin 12.4 g/dL (12.0-16.0); Immature Granulocytes # (auto) 0.05 K/uL (0.00-0.02); Immature Granulocytes % (auto) 0.3 %; Lymphocytes # (auto) 2.05 K/uL (1.2-3.4); Lymphocytes % (auto) 13.5 %; Mean Corpuscular Hgb Conc 33.5 g/dL (32-36); Mean Platelet Volume 10.9 fL (7.4-10.4); Monocytes # (auto) 0.84 K/uL (0.11-0.59); Monocytes % (auto) 5.5 %; Neutrophils # (auto) 12.07 K/uL (1.4-6.5); Neutrophils % (auto) 79.2 %; Platelet Count 206 K/uL (130-400); RDW Coefficient of Variation 13.4 % (11.5-14.5); Red Blood Count 4.11 M/uL (4.2-5.4); White Blood Count 15.24 K/uL (4.8-10.8)
[2019-03-08 10:01] LABS: BUN Creatinine Ratio 10.6 (10-20); Calcium 8.6 mg/dl (8.5-10.1); Creatinine Clr Calc Pharmacy 45.1 ml/min; Est GFR (African American) 89.4; Est GFR (Non-African American) 77.1; Potassium 3.2 mmol/L (3.5-5.1)
[2019-03-08] MEDS ORDERED: POTASSIUM CHLORIDE 20 MEQ TABCR PO STA (11:53)
--- NOTE | 2019-03-08 12:45 | Discharge Summary ---
Date of Service March 08, 2019 Admission HPI Per Admitting Provider History obtained from discussion with ER physician and patient's daughter at bedside. Patient unable to provide details of history due to underlying dementia. 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 Symptoms began around 02:30 when the patient had nausea and vomiting. Some vomitus present in her CPAP mask per family, uncertain if aspiration. Patient then developed multiple episodes of large volume, watery diarrhea which persisted for approximately 2-3 hours. Family reports that some blood was present after the last diarrhea episode. Patient complains of some mild lower abdominal pain. Last week she had a low grade fever and mild diarrhea as well. Patient with history of C. diff diarrhea in Feb, 2018 which occurred after receiving antibiotics for acute diverticulitis. She was treated with PO Vancomycin to complete a 10 day course. Daughter denies recent antibiotic use, travel, change in medication or diet. No sick contacts. Patient had an episode of joe bloody BM in the ER. ER Course: Vancomycin 125mg PO, NSS Admission Exam Per Admitting Provider General: patient resting comfortably, NAD, non-toxic in appearance, minimally verbal, follows some commands Skin: warm, dry, intact, no rashes or lesions HEENT: NC/AT, PERRL, EOMI, anicteric sclera, conjunctiva without injection, external ear normal to inspection and nontender, nares patent, dry mucus membranes, dentition intact, no oropharyngeal lesions, neck supple, trachea midline, no LAD, no thyromegaly, no JVD Heart: +S1/S2, regular, no m/r/g Lungs: equal air entry bilaterally, no rales/rhonchi/wheezes Abd: +BS, soft, ND, mildly tender with deep palpation of the lower abdomen, no masses/organomegaly/ascites Ext: warm, 2+ pulses in UE/LE bilaterally, no clubbing/cyanosis or edema Neuro: patient minimally verbal, follows some commands, moves UE/LE on command with equal strength bilaterally Principal Diagnosis Colitis with GI Bleed Discharge Exam General: Pleasant in no acute distress, resting in bed CV: RRR no m/r/g appreciated Pulm: CTAB, equal breath sounds bilaterally Abdomen: +BS, nondistended, non tender to palpation all quadrants LE: No lower extremity edema or calf tenderness Discharge Data Allergies Allergy/AdvReac Type Severity Reaction Status Date / Time No Known Allergies Allergy Verified 03/04/19 06:35 Consultations 03/04/19 13:04 Consult Case Management - Discharge Planning Routine Consult Gastroenterology Routine 03/05/19 10:33 Consult General Surgery Routine Ordered Studies 03/04/19 08:32 CT abd pelvis IV con only Stat 03/04/19 19:09 CT abd pelvis wo con Stat Hospital Course (1) Colitis with rectal bleedin-year-old female was admitted on 04 Mar 2019 for N/V/D and rectal bleeding. Colitis with rectal bleeding: Had n/v/diarrhea CT: pancolonic wall thickening, severe sigmoid diverticulosis, and chol elithiasis. Question of infectious vs ischemic colitis. Negative salmonella, shigella, campylobacter. 29May started Cipro and Flagyl. - Seen by GI: Recommended stool studies, IV antibiotics, and initial conservative measures. - Seen by general surgery: medical management. - Diarrhea and vomiting improved. Diet advanced to solids which pt tolerated. WBC improved. - Continue Abx x 6 days: Ciprofloxacin 500 mg twice a day and metronidazole 500 mg 3 times a day - Held home Xarelto and aspirin due to rectal bleeding -continue holding until finished antibiotic course then resume - Repeat CBC in 1 to 2 weeks to ensure WBC normalized Anemia: Hemoglobin improved to 12.4 Hypokalemia: K 3.2 today, repleted PCP recheck BMP in 2 to 3 days Elevated lipase and AP, Cholelithiasis: Admit lipase 533. Admit AP 150, since improved. CT a/p noted cholelithiasis. Ongoing medical issues: - Hypertension, hyperlipidemia: On lisinopril, Zocor. - Dementia, depression: On BuSpar, Aricept, Namenda, venlafaxine. - Thyroid disease: On Synthroid - ADELA: On CPAP. - History of DVT and PE: Held home Xarelto and aspirin due to rectal bleeding - continue holding until finished antibiotic course then resume Code status: Full code. Dispo: home with family and home health (2) Anemia: (3) Vomiting: (4) Hypokalemia: (5) Elevated lipase: (6) Elevated alkaline phosphatase level: (7) Cholelithiasis: (8) Hypertension: (9) Hyperlipidemia: (10) Dementia: (11) Depression: (12) Thyroid disease: (13) Obstructive sleep apnea: (14) History of DVT (deep vein thrombosis): (15) History of pulmonary embolus (PE): Total Time Total Time Spent Total Time Spent (In Minutes): <30 Discharge Plan Discharge Items Patient Disposition: Home - Home Health Services Reason For Visit: COLITIS,GI BLEEDING Discharge Diagnosis: Colitis GI bleed Condition: Good Discharge Goals: Decrease discomfort, Diagnostic testing and Therapeutic intervention Activity: Resume your previous activity Non-emergency contact: Primary Care Provider Call non-emergency contact if: you have any medication questions, your symptoms worsen, your pain is concerning for you and you have a fever Follow-up/Referrals: Naomi Patterson [Primary Care Provider] - Diet: Heart Healthy Addtl Provider Instructions: Ms. Ibarra you were admitted for concern of nausea, vomiting and diarrhea. You were found to have infection of your large bowel which was also causing some bleeding. Your symptoms improved. You received antibiotics and we held off your blood thinners. Please follow the instructions below after discharge to continue getting better. Take antibiotic Metronidazole (Flagyl) 500mg three times a day for another 6 days (next dose will be this evening) Take antibiotic Ciprofloxacin 500mg twice a day for another 6 days (next dose will be this evening) Prescriptions for the antibiotics have been sent to your [facility] Do not take your blood thinner Xarelto or aspirin until you finish your antibiotic course - restart Xarelto and aspirin once you finish your antibiotics Take a probiotic or a serving of yogurt daily while you are on the antibiotics Follow up with your primary care doctor on Saturday to make sure you are continuing to get better Your primary care doctor should repeat your CBC (blood test) to make sure your white blood cells (infectious markers) have normalized in about a week or two Prescriptions: New ciprofloxacin HCl 500 mg tablet 500 mg PO BID 6 Days Qty: 12 RF: 0 metronidazole 500 mg tablet 500 mg PO TID 6 Days Qty: 18 RF: 0 Continued venlafaxine 37.5 mg capsule,extended release 24hr 37.5 mg PO QPM RF: 0 venlafaxine 75 mg capsule,extended release 24hr 75 mg PO QAM RF: 0 donepezil 10 mg tablet 10 mg PO QAM RF: 0 lisinopril 20 mg tablet 20 mg PO BID RF: 0 aspirin 81 mg Tablet,Delayed Release (Dr/Ec) 81 mg PO QAM RF: 0 levothyroxine 75 mcg tablet 75 mcg PO QAM RF: 0 simvastatin 20 mg tablet 20 mg PO QPM RF: 0 buspirone 10 mg tablet 10 mg PO BID RF: 0 cholecalciferol (vitamin D3) [Vitamin D3] 1,000 unit Capsule 1,000 unit PO DAILY RF: 0 melatonin 1 mg Tablet 2 mg PO HS RF: 0 memantine [Namenda] 10 mg Tablet 10 mg PO BID RF: 0 Xarelto 20 mg Tablet 20 mg PO QAM RF: 0 Stand-Alone Forms: [facility] Discharge Orders: Discharge Order (Routine); Ordered 03/08/19 Ordered By: Karan Cox Admission Data Admit Date/Time: 03/04/19 10:51 Attending Provider: Leatha Rodriguez Admit Provider: Leatha Rodriguez Primary Care Provider: Naomi Patterson Other Providers: Sidney Vidal ; Anahy Singh ; Maria G Summers ; Reginald Yang ; Nichole Murphy ; Kyle Moore ; Jw Molina ; Alex Cornelius Jr ; Kale Harris ; Cassie Flores ; Tan Griffin ; Rossi Gomez ; Armand Hull Service: Medical Other Interventions: Discharge Summary Assessment (RN) Last Done: 03/08/19 12:13 DC Date/Time DO NOT enter until pt leaves facility: 03/08/19 14:54 Supervising Physician Co-Signing Physician Notes I personally examined the patient and verified all draper points of history and exam, discussed case, and agree with decision making with Dr Brooke haile meaningful HPI review of systems obtainable from patient. doing better, appearing ready to go home. family wanted to make sure she would be able to ambulate first, although they also note that they would not want her to go to a facility anyway. Vitals noted, in general she is awake and alert, disoriented appearing to be her chronic state. No distress. HEENT normocephalic atraumatic mucous members moist. Abdomen is soft nondistended left lower quadrant tenderness all but gone, no guarding rebound or rigidity. Abdominal pain/bloody diarrhea/colitisinfectious versus ischemic, currently treatment is the same, and currently improving. Stable for home finishing out a course of antibiotics. Outpatient follow-up. Leukocytosisappears to have been related to her infection, improving but was a little bit slow to improve, not yet normalized. Would recommend outpatient CBC in 1 to 2 weeks, and should her leukocytosis fail to totally normalize, then a peripheral smear could be entertained. That said this is most likely inflammatory in response to the infection. Pharmacologic DVT prophylaxis contraindicated given bleeding. Mechanical is of questionable benefit. otherwise as above, stable for home. Resident Activity Tracking Resident Involvement: Resident Care Provided Care Provided: Adult Hospital Medicine
== END 2019-03-08 14:54 | disposition home or self-care (01) | DRG 392 ==
LOC: ED 06:02 → 2S 10:51 → 4W 03-06 17:20

== ENCOUNTER 2020-04-27 08:40 | Inpatient (IN) ==
[2020-04-27] MEDS ORDERED: SODIUM CHLORIDE 0.9% 1000ML 1,000 ML IV ONE ×2 (09:15→09:52)
[2020-04-27] MEDS ORDERED: ACETAMINOPHEN 1,000 MG/100 ML VIAL IV STA (09:18)
[2020-04-27 09:34] LABS: Basophils # (auto) 0.01 K/uL (0-0.2); Basophils % (auto) 0.1 %; Eosinophils # (auto) 0.01 K/uL (0-0.5); Eosinophils % (auto) 0.1 %; Hematocrit (blood only) 31.1 % (37-47); Hemoglobin 9.8 g/dL (12.0-16.0); Immature Granulocytes # (auto) 0.04 K/uL (0.00-0.02); Immature Granulocytes % (auto) 0.2 %; Lymphocytes # (auto) 0.82 K/uL (1.2-3.4); Lymphocytes % (auto) 4.8 %; Mean Corpuscular Hemoglobin 27.1 pg (25-34); Mean Corpuscular Hgb Conc 31.5 g/dL (32-36); Mean Corpuscular Volume 85.9 fL (80-100); Mean Platelet Volume 11.1 fL (7.4-10.4); Monocytes # (auto) 1.53 K/uL (0.11-0.59); Monocytes % (auto) 8.9 %; Neutrophils % (auto) 85.9 %; Platelet Count 253 K/uL (130-400); RDW Coefficient of Variation 17.5 % (11.5-14.5); RDW Standard Deviation 55.4 fL (36.4-46.3); Red Blood Count 3.62 M/uL (4.2-5.4); White Blood Count 17.11 K/uL (4.8-10.8)
[2020-04-27 09:45] LABS: INR 1.1 (0.9-1.1); Partial Thromboplastin Ratio 1.2; Partial Thromboplastin Time 34.3 Seconds (21.0-31.0); Prothrombin Time 11.1 Seconds (9.0-12.0)
[2020-04-27] MEDS ORDERED: PIPERACILL/TAZOBAC CONSULT ACTIVE PRN (09:47)
[2020-04-27] MEDS ORDERED: PIPERACILLIN/TAZOBACTAM 4.5 GM/120 ML BAG IV ONE (09:47)
[2020-04-27 09:51] LABS: Alanine Aminotransferase 27 U/L (12-78); Albumin Level 2.7 gm/dl (3.4-5.0); Aspartate Aminotransferase 35 U/L (15-37); BUN Creatinine Ratio 22.6 (10-20); Blood Urea Nitrogen 25 mg/dl (7-18); Calcium 9.3 mg/dl (8.5-10.1); Carbon Dioxide 25 mmol/L (21-32); Chloride 108 mmol/L (98-107); Est GFR (African American) 58.3; Est GFR (Non-African American) 50.3; Glucose 108 mg/dl (70-99); Magnesium 2.4 mg/dl (1.8-2.4); Potassium 3.9 mmol/L (3.5-5.1); Sodium 139 mmol/L (136-145)
[2020-04-27 09:58] LABS: Albumin Globulin Ratio 0.6 (0.9-2); Alkaline Phosphatase 121 U/L (45-117); Bilirubin,Total 0.7 mg/dl (0.2-1); Globulin 4.5 gm/dl (2.5-4.0); Total Protein 7.2 gm/dl (6.4-8.2); Troponin I < 0.015 ng/ml (0-0.045)
--- NOTE | 2020-04-27 10:13 | Emergency Department Note ---
History of Present Illness General Chief complaint: Abdominal Pain Stated complaint: VOMITING, FEVER, SIDE PAIN ON RIGHT, HOSPICE PT Time Seen by Provider: 04/27/20 09:06 Source: patient, family (son), RN notes reviewed and old records reviewed Mode of arrival: wheelchair Limitations: physical limitation History of Present Illness Provider complaint: Altered mental status, abd pain Onset (ago): day(s) 3 Location: abdomen Radiation: back Severity: moderate Pain Consistency: + intermittent Maximum Pain Intensity: 4 Current Pain Intensity: 4 Quality: + sharp Relieved By: + immobilization Exacerbated By: + movement Associated symptoms: + fever/chills; no cough, no diaphoresis, no nausea/vomiting and no shortness of breath Treatments prior to arrival: none This is a 74-year-old female brought in by her son over concerns of the patient is not acting normally and is complaining of abdominal pain. The patient only responds by nodding her head. She does have a history of dementia and is on hospice care however the son would like "everything done". Upon arrival to the emergency department the patient nods her head when asked if she is in pain. She winces when her abdomen is pressed. She is running a fever here. Home Medications Home Medications Medication Instructions Recorded Confirmed Type Xarelto 20 mg PO QAM 08/27/18 04/27/20 History aspirin 81 mg PO QAM 08/27/18 04/27/20 History buspirone 10 mg PO BID PRN 08/27/18 04/27/20 History cholecalciferol (vitamin D3) 1,000 unit PO DAILY 08/27/18 04/27/20 History [Vitamin D3] donepezil 10 mg PO QAM 08/27/18 04/27/20 History levothyroxine 75 mcg PO QAM 08/27/18 04/27/20 History lisinopril 20 mg PO BID 08/27/18 04/27/20 History melatonin 2 mg PO HS 08/27/18 04/27/20 History memantine [Namenda] 10 mg PO BID 08/27/18 04/27/20 History simvastatin 20 mg PO QPM 08/27/18 04/27/20 History venlafaxine 37.5 mg PO QPM 08/27/18 04/27/20 History venlafaxine 75 mg PO QAM 08/27/18 04/27/20 History amlodipine 2.5 mg PO DAILY 04/27/20 04/27/20 History Allergies Allergy/AdvReac Type Severity Reaction Status Date / Time No Known Allergies Allergy Verified 04/27/20 10:18 Past Med/Surg History Medical History Alzheimer's dementia C. difficile colitis Dementia (Chronic) Dementia (Acute) Diverticulitis DVT (deep venous thrombosis) Fatigue Goals of care, counseling/discussion Hypertension (Chronic) Mild sleep apnea Nocturnal hypoxia Pulmonary embolism Seizure-like activity Snoring Thyroid disease (Chronic) Witnessed episode of apnea Surgical History Hx of hysterectomy (Resolved) Family History Mother No pertinent family history Father No pertinent family history Family/Other No pertinent family history Other Family history of heart disease Family history of stroke Social History Smoking Status: Former smoker Second Hand Exposure: No; Do You Dip or Chew Tobacco: No; Tobacco Cessation Education Requested by Patient: No Hx Alcohol Use: No Hx Substance Use: No Preferred Language: Sinhala Communication Ability: Unable Communication Tools: Facial Expression and Physical Gestures Journalist Required: Yes and No Beliefs That Will Affect Care: None Current Living Situation: Other Current Living Situation Comment: lives at home with son Other Information That Helps Us Care for You: No other: Minimally verbal, occasional delusions, ambulatory dysfunction d/t dementia Feels Safe at Home: Yes Safety Concerns: Feels Safe At This Time Review of Systems A total of 10 systems reviewed and were otherwise negative Physical Exam Vital Signs Vital Signs - 24 hr 04/27/20 11:00 04/27/20 12:02 Pulse Rate [Left] 65 94 H Respiratory Rate 18 18 Respiratory Effort / Characteristics Non-Labored Respiratory Depth Normal Blood Pressure [Left Arm] 122/68 102/64 Blood Pressure Mean [Left Arm] 86 76 Pulse Oximetry 93 92 Oxygen Delivery Method Room Air Room Air VITAL SIGNS - Vital signs and nursing notes were reviewed. GENERAL - 74-year-old female appearing stated age who is obtunded. Pt guards abdomen SKIN - Without rashes. HEAD - NC/AT. EYES - PERRL with EOMI bilaterally. Sclera anicteric. Palpebral conjunctiva pink and moist with no injection noted. EARS - No deformities of external structures noted on gross examination bilaterally. No pain elicited with palpation of the tragus bilaterally. External auditory canals without discharge or otorrhea. Tympanic membranes pearly reid without retraction or bulging. No fluid or purulent material visualized behind the TM. Handle of malleus, umbo, cone of light, pars tensa/flaccid all easily vi sualized. NOSE - Midline and without cyanosis. No epistaxis or purulent drainage noted. Septum midline without deviation or septal hematoma noted. MOUTH/OROPHARYNX - Without perioral cyanosis. Buccal mucosa pink and moist and without leukoplakia. Tongue midline with equal elevation of palate bilaterally. No tonsillar hypertrophy, erythema, or exudates noted. dentition noted. NECK - Neck with FROM. Supple to palpation. lymphadenopathy noted. No nuchal rigidity. LUNGS - Chest wall symmetric without accessory muscle use, intercostals retractions, or central cyanosis. Normal vesicular breath sounds CTA B/L. No wheezes, rales, or rhonchi appreciated. CARDIAC - RRR with S1/S2. No murmur, rubs, or gallops appreciated. ABDOMEN - Abdominal contour without pulsations or visible masses. + guarding throughout abdomen palpable masses, hepatosplenomegaly, or ascites noted. EXTREMITIES - No clubbing or peripheral cyanosis. No pretibial edema present. +3/5 radial, posterior tibial, and dorsalis pedis pulses palpated throughout. +5/5 strength noted in UE/LE bilaterally. NEUROLOGIC - Cranial nerves II through XII grossly intact. Sensory intact to light touch throughout. Patellar reflexes +2/4. PSYCH - Pt obtunded Course Administered Medications Acetaminophen (Tylenol) 1,000 mg PO Q6H PRN PRN Reason: Fever or headache Stop: 05/27/20 20:03 Last Admin: 04/27/20 20:20 Dose: 1,000 mg Documented by: [id number] Aspirin (Ecotrin Ectab) 81 mg PO [facility] Stop: 05/28/20 08:59 Last Admin: 04/28/20 08:45 Dose: 81 mg Documented by: [id number] Donepezil HCl (Aricept) 10 mg PO [facility] Stop: 05/28/20 08:59 Last Admin: 04/28/20 08:45 Dose: 10 mg Documented by: [id number] Piperacillin Sod/Tazobactam (Sod 3.375 gm/ Dextrose) 115 mls @ 28.75 mls/hr IV Q8H [facility]; Protocol Stop: 05/04/20 15:59 Last Admin: 04/28/20 08:44 Dose: 28.8 mls/hr Documented by: [id number] Infusion: 04/28/20 03:34 Dose: 0 mls/hr Documented by: [id number] Admin: 04/27/20 23:44 Dose: 28.8 mls/hr Documented by: [id number] Infusion: 04/27/20 20:05 Dose: 0 mls/hr Documented by: [id number] Admin: 04/27/20 16:05 Dose: 28.8 mls/hr Documented by: [id number] Lactated Ringer's (Lr) 1,000 mls @ 80 mls/hr IV .[id number] [facility] Stop: 05/27/20 14:44 Last Admin: 04/28/20 08:44 Dose: 100 mls/hr Documented by: [id number] Infusion: 04/28/20 08:44 Dose: 100 mls/hr Documented by: [id number] Admin: 04/27/20 23:44 Dose: 100 mls/hr Documented by: [id number] Infusion: 04/27/20 23:44 Dose: 100 mls/hr Documented by: [id number] Admin: 04/27/20 14:51 Dose: 100 mls/hr Documented by: [id number] Ioversol (Optiray 320 100ml) 94 ml IV ONCE PRN PRN Reason: Interaction Checking Stop: 05/01/20 11:25 Last Admin: 04/27/20 11:28 Dose: 94 ml Documented by: [id number] Levothyroxine Sodium (Synthroid) 75 mcg PO DAILYBB [facility] Stop: 05/28/20 06:29 Last Admin: 04/28/20 05:43 Dose: 75 mcg Documented by: [id number] Melatonin (Melatonin) 3 mg PO HS [facility] Stop: 05/27/20 20:59 Last Admin: 04/27/20 20:21 Dose: 3 mg Documented by: [id number] Memantine (Namenda) 10 mg PO BID [facility] Stop: 05/28/20 08:59 Last Admin: 04/28/20 08:45 Dose: 10 mg Documented by: [id number] Venlafaxine HCl (Effexor Extended Release) 37.5 mg PO QPM [facility] Stop: 05/27/20 20:59 Last Admin: 04/27/20 20:20 Dose: 37.5 mg Documented by: [id number] Venlafaxine HCl (Effexor Extended Release) 75 mg PO QAM [facility] Stop: 05/28/20 08:59 Last Admin: 04/28/20 08:45 Dose: 75 mg Documented by: [id number] Vitamin D (Vitamin D3) 1,000 units PO DAILY [facility] Stop: 05/28/20 08:59 Last Admin: 04/28/20 08:45 Dose: 1,000 units Documented by: [id number] Discontinued Medications Sodium Chloride (Nss 1000ml) 1,000 mls @ 999 mls/hr IV .Q1H1M ONE Stop: 04/27/20 10:15 Last Infusion: 04/27/20 11:07 Dose: 0 mls/hr Documented by: [id number] Admin: 04/27/20 09:57 Dose: 999 mls/hr Documented by: [id number] Acetaminophen (Ofirmev) 1,000 mg in 100 mls @ 400 mls/hr IV NOW STA Stop: 04/27/20 09:32 Last Infusion: 04/27/20 10:12 Dose: 0 mls/hr Documented by: [id number] Admin: 04/27/20 09:56 Dose: 400 mls/hr Documented by: [id number] Piperacillin Sod/Tazobactam Sod (Zosyn) 4.5 gm in 120 mls @ 240 mls/hr IV NOW ONE Stop: 04/27/20 10:16 Last Infusion: 04/27/20 11:08 Dose: 0 mls/hr Documented by: [id number] Admin: 04/27/20 10:35 Dose: 240 mls/hr Documented by: [id number] Sodium Chloride (Nss 1000ml) 1,000 mls @ 999 mls/hr IV .Q1H1M ONE Stop: 04/27/20 10:52 Last Infusion: 04/27/20 12:01 Dose: 0 mls/hr Documented by: [id number] Admin: 04/27/20 10:12 Dose: 999 mls/hr Documented by: [id number] Daptomycin 348 mg/ Syringe 6.96 mls @ 3.48 mls/min IV NOW ONE; Protocol Stop: 04/27/20 10:43 Last Admin: 04/27/20 11:42 Dose: 3.48 mls/min Documented by: [id number] Levofloxacin/Dextrose (Levaquin/D5w) 750 mg in 150 mls @ 100 mls/hr IV NOW STA Stop: 04/27/20 12:57 Last Infusion: 04/27/20 13:35 Dose: 0 mls/hr Documented by: [id number] Admin: 04/27/20 12:00 Dose: 100 mls/hr Documented by: [id number] Lactated Ringer's (Lr) 500 mls @ 999 mls/hr IV .Q31M ONE Stop: 04/27/20 20:36 Last Infusion: 04/27/20 20:46 Dose: 0 mls/hr Documented by: [id number] Admin: 04/27/20 20:11 Dose: 999 mls/hr Documented by: [id number] Medical Decision Making Differential Diagnosis Appendicitis, ovarian cyst, ovarian torsion, ectopic , TOA, PID, infections, diverticulitis, UTI, obstruction, mesenteric ischemia, aortic pathology, inflammatory bowel disease, renal colic, PUD, pancreatitis, biliary pathology, hernia, volvulus, constipation, as well as other pathologies. Medical Records Attestation: I reviewed the patient's medical records. Home Medications Current Medication List: was personally reviewed by me Laboratory Data Attestation: I reviewed the patient's lab results. Result diagrams: 04/28/20 05:38 04/28/20 05:38 Lab Results 04/27/20 04/27/20 04/27/20 Range/Units 09:20 09:20 09:20 WBC 17.11 H (4.8-10.8) K/uL RBC 3.62 L (4.2-5.4) M/uL Hgb 9.8 L (12.0-16.0) g/dL Hct 31.1 L (37-47) % MCV 85.9 (80-100) fL MCH 27.1 (25-34) pg MCHC 31.5 L (32-36) g/dL RDW Std Deviation 55.4 H (36.4-46.3) fL RDW Coeff of Fabiano 17.5 H (11.5-14.5) % Plt Count 253 (130-400) K/uL MPV 11.1 H (7.4-10.4) fL Immature Gran % (Auto) 0.2 % Neut % (Auto) 85.9 % Lymph % (Auto) 4.8 % [place] % (Auto) 8.9 % Eos % (Auto) 0.1 % Baso % (Auto) 0.1 % Neut # (Auto) 14.70 H (1.4-6.5) K/uL Lymph # (Auto) 0.82 L (1.2-3.4) K/uL [place] # (Auto) 1.53 H (0.11-0.59) K/uL Eos # (Auto) 0.01 (0-0.5) K/uL Baso # (Auto) 0.01 (0-0.2) K/uL Immature Gran # (Auto) 0.04 H (0.00-0.02) K/uL ESR (0-21) mm/hr PT 11.1 (9.0-12.0) Seconds INR 1.1 (0.9-1.1) APTT 34.3 H (21.0-31.0) Seconds PTT Ratio 1.2 Sodium (136-145) mmol/L Potassium (3.5-5.1) mmol/L Chloride (98-107) mmol/L Carbon Dioxide (21-32) mmol/L Anion Gap (3-11) BUN (7-18) mg/dl Creatinine (0.6-1.2) mg/dl Est Cr Clr Drug Dosing Est GFR ( Amer) Est GFR (Non-Af Amer) BUN/Creatinine Ratio (10-20) Glucose (70-99) mg/dl Lactate (0.4-2.0) mmol/L Calcium (8.5-10.1) mg/dl Magnesium (1.8-2.4) mg/dl Total Bilirubin (0.2-1) mg/dl AST (15-37) U/L ALT (12-78) U/L Alkaline Phosphatase (45-117) U/L Lactate Dehydrogenase (84-246) U/L Troponin I (0-0.045) ng/ml C-Reactive Protein (0-0.29) mg/dl Total Protein (6.4-8.2) gm/dl Albumin (3.4-5.0) gm/dl Globulin (2.5-4.0) gm/dl Albumin/Globulin Ratio (0.9-2) Procalcitonin 4.94 H (0-0.5) ng/ml Urine Color Urine Appearance (Clear) Urine pH (4.5-7.5) Ur Specific Line [place] (1.000-1.030) Urine Protein (Negative) Urine Glucose (UA) (Negative) Urine Ketones (Negative) Urine Blood (Negative) Urine Nitrite (Negative) Urine Bilirubin (Negative) Urine Urobilinogen (Negative) Ur Leukocyte Esterase (Negative) Urine WBC (Auto) (0-5) /hpf Urine RBC (Auto) (0-4) /hpf U Hyaline Cast (Auto) (0-5) /lpf U Epithel Cells (Auto) (0-5) /lpf Urine Bacteria (Auto) (Negative) 04/27/20 04/27/20 04/27/20 Range/Units 09:20 09:20 09:20 WBC (4.8-10.8) K/uL RBC (4.2-5.4) M/uL Hgb (12.0-16.0) g/dL Hct (37-47) % MCV (80-100) fL MCH (25-34) pg MCHC (32-36) g/dL RDW Std Deviation (36.4-46.3) fL RDW Coeff of Fabiano (11.5-14.5) % Plt Count (130-400) K/uL MPV (7.4-10.4) fL Immature Gran % (Auto) % Neut % (Auto) % Lymph % (Auto) % [place] % (Auto) % Eos % (Auto) % Baso % (Auto) % Neut # (Auto) (1.4-6.5) K/uL Lymph # (Auto) (1.2-3.4) K/uL [place] # (Auto) (0.11-0.59) K/uL Eos # (Auto) (0-0.5) K/uL Baso # (Auto) (0-0.2) K/uL Immature Gran # (Auto) (0.00-0.02) K/uL ESR 84 H (0-21) mm/hr PT (9.0-12.0) Seconds INR (0.9-1.1) APTT (21.0-31.0) Seconds PTT Ratio Sodium 139 (136-145) mmol/L Potassium 3.9 (3.5-5.1) mmol/L Chloride 108 H (98-107) mmol/L Carbon Dioxide 25 (21-32) mmol/L Anion Gap 6.0 (3-11) BUN 25 H (7-18) mg/dl Creatinine 1.09 (0.6-1.2) mg/dl Est Cr Clr Drug Dosing Not Reportable Est GFR ( Amer) 58.3 Est GFR (Non-Af Amer) 50.3 BUN/Creatinine Ratio 22.6 H (10-20) Glucose 108 H (70-99) mg/dl Lactate 1.3 (0.4-2.0) mmol/L Calcium 9.3 (8.5-10.1) mg/dl Magnesium 2.4 (1.8-2.4) mg/dl Total Bilirubin 0.7 (0.2-1) mg/dl AST 35 (15-37) U/L ALT 27 (12-78) U/L Alkaline Phosphatase 121 H (45-117) U/L Lactate Dehydrogenase (84-246) U/L Troponin I < 0.015 (0-0.045) ng/ml C-Reactive Protein 38.90 H (0-0.29) mg/dl Total Protein 7.2 (6.4-8.2) gm/dl Albumin 2.7 L (3.4-5.0) gm/dl Globulin 4.5 H (2.5-4.0) gm/dl Albumin/Globulin Ratio 0.6 L (0.9-2) Procalcitonin (0-0.5) ng/ml Urine Color Urine Appearance (Clear) Urine pH (4.5-7.5) Ur Specific Line [place] (1.000-1.030) Urine Protein (Negative) Urine Glucose (UA) (Negative) Urine Ketones (Negative) Urine Blood (Negative) Urine Nitrite (Negative) Urine Bilirubin (Negative) Urine Urobilinogen (Negative) Ur Leukocyte Esterase (Negative) Urine WBC (Auto) (0-5) /hpf Urine RBC (Auto) (0-4) /hpf U Hyaline Cast (Auto) (0-5) /lpf U Epithel Cells (Auto) (0-5) /lpf Urine Bacteria (Auto) (Negative) 04/27/20 04/27/20 Range/Units 09:20 10:20 WBC (4.8-10.8) K/uL RBC (4.2-5.4) M/uL Hgb (12.0-16.0) g/dL Hct (37-47) % MCV (80-100) fL MCH (25-34) pg MCHC (32-36) g/dL RDW Std Deviation (36.4-46.3) fL RDW Coeff of Fabiano (11.5-14.5) % Plt Count (130-400) K/uL MPV (7.4-10.4) fL Immature Gran % (Auto) % Neut % (Auto) % Lymph % (Auto) % [place] % (Auto) % Eos % (Auto) % Baso % (Auto) % Neut # (Auto) (1.4-6.5) K/uL Lymph # (Auto) (1.2-3.4) K/uL [place] # (Auto) (0.11-0.59) K/uL Eos # (Auto) (0-0.5) K/uL Baso # (Auto) (0-0.2) K/uL Immature Gran # (Auto) (0.00-0.02) K/uL ESR (0-21) mm/hr PT (9.0-12.0) Seconds INR (0.9-1.1) APTT (21.0-31.0) Seconds PTT Ratio Sodium (136-145) mmol/L Potassium (3.5-5.1) mmol/L Chloride (98-107) mmol/L Carbon Dioxide (21-32) mmol/L Anion Gap (3-11) BUN (7-18) mg/dl Creatinine (0.6-1.2) mg/dl Est Cr Clr Drug Dosing Est GFR ( Amer) Est GFR (Non-Af Amer) BUN/Creatinine Ratio (10-20) Glucose (70-99) mg/dl Lactate (0.4-2.0) mmol/L Calcium (8.5-10.1) mg/dl Magnesium (1.8-2.4) mg/dl Total Bilirubin (0.2-1) mg/dl AST (15-37) U/L ALT (12-78) U/L Alkaline Phosphatase (45-117) U/L Lactate Dehydrogenase 200 (84-246) U/L Troponin I (0-0.045) ng/ml C-Reactive Protein (0-0.29) mg/dl Total Protein (6.4-8.2) gm/dl Albumin (3.4-5.0) gm/dl Globulin (2.5-4.0) gm/dl Albumin/Globulin Ratio (0.9-2) Procalcitonin (0-0.5) ng/ml Urine Color Yellow Urine Appearance Cloudy A (Clear) Urine pH 8.5 H (4.5-7.5) Ur Specific Line [place] 1.019 (1.000-1.030) Urine Protein 2+ H (Negative) Urine Glucose (UA) Negative (Negative) Urine Ketones Negative (Negative) Urine Blood 2+ H (Negative) Urine Nitrite Negative (Negative) Urine Bilirubin Negative (Negative) Urine Urobilinogen Negative (Negative) Ur Leukocyte Esterase 2+ H (Negative) Urine WBC (Auto) >30 H (0-5) /hpf Urine RBC (Auto) 10-30 H (0-4) /hpf U Hyaline Cast (Auto) 1-5 (0-5) /lpf U Epithel Cells (Auto) 20-30 H (0-5) /lpf Urine Bacteria (Auto) 2+ H (Negative) Imaging Data Radiologist's Impression: [facility], [place] [phone] XRay Report Patient: WAYNE WILKINS Date: 04/27/20 MR#: [id number]: 127 [facility] Acct ID:[id number]: Date: [address] [place] [address] Zip: [place] [address] Age: 74Location: ED Sex: F Room/Bed: Att Phy:Diagnosis: VOMITING, FEVER, SIDE PAIN ON RIGHT, HOSPICE PT Cynthia Phy: Naomi Patterson CRNPService Date: 04/27/20 Fam Phy:Interpreting Phy: Sourav Acosta MD Admit Phy: Ordering Phy: Alex Murguia MD cc: ~ SINGLE VIEW CHEST CLINICAL HISTORY: Sepsis. FINDINGS: An AP, portable, upright chest radiograph is compared to study dated 03/04/2019 and correlated with chest CT dated 08/04/2018. The examination is degraded by portable technique and patient rotation. The cardiomediastinal silhouette is unremarkable noting atherosclerotic calcification of the thoracic aorta. There is a layering right pleural effusion with associated right basilar consolidation. Left lung appears clear. No pneumothorax is seen. The skeletal structures are osteopenic. The bony thorax is grossly intact. IMPRESSION: Layering right pleural effusion with associated right basilar consolidation. ACT 112: Negative or not required by law. Electronically signed by: Sourav Acosta M.D. 04/27/2020 11:18 AM Dictated: 04/27/20 1118 Transcribed: 04/27/20 1118 [place], [place] [phone] CT Scan Report Patient: WAYNE WILKINS Date: 04/27/20 MR#: [id number]: [id number] [facility] Acct ID:[id number]: [facility] Zip[facility] [place] [address] Age: 74Location: ED Sex: F Room/Bed: Att Phy:Diagnosis: VOMITING, FEVER, SIDE PAIN ON RIGHT, HOSPICE PT Cynthia Phy: Naomi Patterson CRNPService Date: 04/27/20 Fam Phy:Interpreting Phy: Hari Kruse MD Admit Phy: Ordering Phy: Alex Murguia MD cc: ~ ABDOMEN AND PELVIS CT WITH IV CONTRAST CT DOSE: 691.69 mGycm HISTORY: Unresponsive. Right-sided abdominal pain. TECHNIQUE: Multiaxial CT images of the abdomen and pelvis were performed following the use of intravenous contrast. A dose lowering technique was utilized adhering to the principles of ALARA. COMPARISON STUDY: Abdomen and pelvis CT 03/04/2019. FINDINGS: Trace right pleural effusion. Dense consolidation within the base of the right lower lobe with associated air bronchograms. This favors a pneumonia and could be due to aspiration. Atelectasis could also have a similar appearance. There is motion artifact within the abdomen. No pneumoperitoneum. No pneumatosis. Old, healed right pubic fractures. No suspicious lytic or blastic osseous lesions. There are few small stones within the gallbladder fundus. No bladder wall thickening. The liver, spleen, adrenal glands are unremarkable. Bundy btle heterogeneous enhancement to the right kidney with right perinephric fat stranding/edema. Small amount of fluid extends into the right anterior pararenal space. The pancreas enhances normally. There is a 3 mm stone within the right renal pelvis. Bilateral extrarenal pelvis sees are noted. No ureteral stones. No hydronephrosis. Moderate rectal thickening and adjacent fat stranding within the right renal collecting system/pelvis as well as the right ureter. Therefore, these findings favor a right-sided pyelonephritis/pyelitis. The left kidney enhances normally. Small diverticulum at the third portion of the duodenum. There is a [place] catheter decompressing the bladder. The bladder wall is mildly thickened. Small amount of gas within the bladder lumen is likely due to the catheterization. The uterus is surgically absent. No pelvic lymphadenopathy. Extensive colonic diverticulosis. No evidence for diverticulitis. No bowel wall thickening or obstruction. Normal appendix. Subcentimeter retroperitoneal lymph nodes do not meet CT criteria for pathologic involvement. There is a left circ umaortic renal vein. IMPRESSION: 1. Subtle heterogeneous enhancement within the right kidney with right perinephric fat stranding/edema. There is also urothelial thickening involving the right renal collecting system/pelvis as well as the right ureter. Therefore, this likely represents a right-sided pyelonephritis/pyelitis. Recommend correlation with urinalysis. 2. Mild bladder wall thickening which could be due to underdistention or a cystitis. 3. Dense consolidation within the base of the right lower lobe. This favors a pneumonia. Atelectasis could also have a similar appearance. 4. Trace right pleural effusion. 5. Cholelithiasis. 6. Colonic diverticulosis. No evidence for diverticulitis. 7. Additional findings as described above. ACT 112: Negative or not required by law. Electronically signed by: Hari Kruse M.D. 04/27/2020 11:38 AM Dictated: 04/27/20 1130 Transcribed: 04/27/20 113 ECG Data Attestation: I personally reviewed and interpreted this ECG as follows: Indication: abdominal pain Rate (beats per minute): 112 Rhythm: sinus tachycardia Findings: + other (QTC 401); no ST depression and no ST elevation Comparison ECG Date: from (03/04/2019) Change: no significant change Blood Pressure Blood Pressure Findings: Low blood pressure MDM Narrative Patient was seen and evaluated as above in room A9. Review was performed of nursing notes and vital signs. I did review pertinent previous visits and p atient history. After obtaining a thorough history and physical examination the above work up was performed. This is a 74-year-old female who presents emergency department hypotensive tachycardic and febrile. I expressed my concern to the family. Family would like everything done including CPR if the patient arrests. I had a lengthy discussion with them if this was in the patient's best interest however they would like me do continue with resuscitation. Patient was given a normal saline bolus 30 mils per kilogram of fluid along with broad-spectrum antibiotics including Zosyn Levaquin daptomycin. Her CAT scan is concerning for hydronephrosis. A sepsis alert was initiated. Patient was found to have grossly elevated white blood cell count. She also has pneumonia present on her chest x-ray. She was discussed with both the panama hat blocker as well as the hospitalist. An order was placed for continuous cardiac monitoring. The monitor shows a rate of 117 with Normal Sinus rhythm. The patient was evaluated during the global COVID-19 pandemic, and that diagnosis was suspected/considered upon their initial presentation. Their evaluation, treatment and testing was consistent with current guidelines for patients who present with complaints or symptoms that may be related to COVID- 19. Impression & Plan Sepsis, Pyelonephritis of right kidney, Pneumonia Discharge Plan Visit Data *Final* Discharge Date/Time: 04/27/20 13:44 Chief Complaint: Abdominal Pain Stated Complaint: VOMITING, FEVER, SIDE PAIN ON RIGHT, HOSPICE PT ED Provider: Alex Murguia Discharge Problem: Sepsis, Pyelonephritis of right kidney, Pneumonia Patient Disposition: Admitted As Inpatient Discharge Instructions Interventions: ED Discharge Assessment Last Done: 04/27/20 13:44 Discharge Problem: Sepsis Qualifiers: Sepsis type: sepsis due to unspecified organism Sepsis acute organ dysfunction status: unspecified Qualified Code(s): A41.9 - Sepsis, unspecified organism Pneumonia Qualifiers: Pneumonia type: due to unspecified organism Laterality: right Lung location: lower lobe of lung Qualified Code(s): J18.9 - Pneumonia, unspecified organism
[2020-04-27] MEDS ORDERED: DAPTOMYCIN IV ONE (10:42)
[2020-04-27] MEDS ORDERED: DAPTOMYCIN CONSULT ACTIVE PRN (10:42)
[2020-04-27 11:15] LABS: Appearance Urine Cloudy (Clear); Bacteria Urine Automated 2+ (Negative); Bilirubin Urine Negative (Negative); Blood Urine 2+ (Negative); Color Urine Yellow; Epithelial Cell Urine Auto 20-30 /lpf (0-5); Glucose Urine UA Negative (Negative); Ketones Urine Negative (Negative); Leukocyte Esterase Urine 2+ (Negative); Nitrite Urine Negative (Negative); Specific Gravity Urine 1.019 (1.000-1.030); Urobilinogen Urine Negative (Negative); WBC Urine Automated >30 /hpf (0-5); pH Urine 8.5 (4.5-7.5)
--- NOTE | 2020-04-27 11:20 | XRay Report ---
SINGLE VIEW CHEST CLINICAL HISTORY: Sepsis. FINDINGS: An AP, portable, upright chest radiograph is compared to study dated 03/04/2019 and correlat ed with chest CT dated 08/04/2018. The examination is degraded by portable technique and patient rota tion. The cardiomediastinal silhouette is unremarkable noting atherosclerotic calcification of the th oracic aorta. There is a layering right pleural effusion with associated right basilar consolidation. Left lung appears clear. No pneumothorax is seen. The skeletal structures are osteopenic. The bony t horax is grossly intact. IMPRESSION: Layering right pleural effusion with associated right basilar consolidation. ACT 112: Negative or not required by law. Electronically signed by: Sourav Acosta M.D. 04/27/2020 11:18 AM
[2020-04-27] MEDS ORDERED: IOVERSOL 100ml IV PRN (11:26)
[2020-04-27] MEDS ORDERED: LEVOFLOXACIN/D5W 750 MG/150 ML BAG IV STA (11:28)
[2020-04-27 11:31] LABS: Protein Urine 2+ (Negative); Sulfosalicylic Acid Urine Positive (Negative)
--- NOTE | 2020-04-27 11:40 | CT Scan Report ---
ABDOMEN AND PELVIS CT WITH IV CONTRAST CT DOSE: 691.69 mGycm HISTORY: Unresponsive. Right-sided abdominal pain. TECHNIQUE: Multiaxial CT images of the abdomen and pelvis were performed following the use of intrave nous contrast. A dose lowering technique was utilized adhering to the principles of ALARA. COMPARISON STUDY: Abdomen and pelvis CT 03/04/2019. FINDINGS: Trace right pleural effusion. Dense consolidation within the base of the right lower lobe w ith associated air bronchograms. This favors a pneumonia and could be due to aspiration. Atelectasis could also have a similar appearance. There is motion artifact within the abdomen. No pneumoperitoneu m. No pneumatosis. Old, healed right pubic fractures. No suspicious lytic or blastic osseous lesions. There are few small stones within the gallbladder fundus. No bladder wall thickening. The liver, spl een, adrenal glands are unremarkable. Subtle heterogeneous enhancement to the right kidney with right perinephric fat stranding/edema. Small amount of fluid extends into the right anterior pararenal spa ce. The pancreas enhances normally. There is a 3 mm stone within the right renal pelvis. Bilateral ex trarenal pelvis sees are noted. No ureteral stones. No hydronephrosis. Moderate rectal thickening and adjacent fat stranding within the right renal collecting system/pelvis as well as the right ureter. Therefore, these findings favor a right-sided pyelonephritis/pyelitis. The left kidney enhances eris lly. Small diverticulum at the third portion of the duodenum. There is a [place] catheter decompressing the bladder. The bladder wall is mildly thickened. Small amount of gas within the bladder lumen is l ikely due to the catheterization. The uterus is surgically absent. No pelvic lymphadenopathy. Extensi ve colonic diverticulosis. No evidence for diverticulitis. No bowel wall thickening or obstruction. N ormal appendix. Subcentimeter retroperitoneal lymph nodes do not meet CT criteria for pathologic invo lvement. There is a left circumaortic renal vein. IMPRESSION: 1. Subtle heterogeneous enhancement within the right kidney with right perinephric fat stranding/bro a. There is also urothelial thickening involving the right renal collecting system/pelvis as well as the right ureter. Therefore, this likely represents a right-sided pyelonephritis/pyelitis. Recommend correlation with urinalysis. 2. Mild bladder wall thickening which could be due to underdistention or a cystitis. 3. Dense consolidation within the base of the right lower lobe. This favors a pneumonia. Atelectasis could also have a similar appearance. 4. Trace right pleural effusion. 5. Cholelithiasis. 6. Colonic diverticulosis. No evidence for diverticulitis. 7. Additional findings as described above. ACT 112: Negative or not required by law. Electronically signed by: Hari Kruse M.D. 04/27/2020 11:38 AM
--- NOTE | 2020-04-27 12:44 | History & Physical Report ---
Date of Service April 27, 2020 Assessment & Plan (1) Goals of care, counseling/discussion: Patient previously on hospice care. Discussed in great detail at bedside regarding CODE STATUS. His son reports he has power of ip attorney and has paperwork for this although not with him at present. At the present time he wishes everything possibly done including full CPR with cardiac defibrillation and intubation/ventilation in the event of a cardiac arrest. Discussed with Roxy from palliative care. (2) Sepsis: Lactate WNL Pyelonephritis +/- pneumonia as source. Follow blood and urine cultures Empiric antibiotics with Daptomycin, Zosyn and Levaquin. MRSA nose swab negative and unlikely MRSA pneumonia based on clinical presentation highly suspicious source is urine rather than pneumonia driving her sepsis. Adequately fluid resuscitated in the ER (30ml/kg, 1800ml) with 2L NSS, continue LR 100ml/hr and monitor UO (3) Pyelonephritis of right kidney: Continue broad-spectrum antibiotics as above pending urine and blood cultures (4) Pneumonia: Right lower lobe concerning for aspiration pneumonia. Will need speech consult if she wakes up enough to eat. (5) Pleural effusion on right: Last took Xarelto on Saturday although throughout shortly after this. We will await palliative care consult and if remains full code will discuss potential thoracocentesis with pulmonology. Unlikely empyema however this would be the diagnosis to rule out. (6) Apnea: Witnessed episodes in the emergency room while patient is asleep. Son reports is not unusual for her. ABG stat to assess for CO2 retention CPAP while napping and at night (7) History of Clostridioides difficile colitis: Monitor for watery stools while on broad spectrum antibiotics. Low threshold to start vancomycin PO (8) Alzheimer's dementia: Continue venlafaxine due to risk of withdrawal If she starts responding to antibiotics and is more hemodynamically stable will restart memantine and donepezil. (9) History of pulmonary embolus (PE): Xarelto currently on hold for possible need for thoracocentesis. Should be restarted pending decision on this in the morning. Admission and Anticipated Discharge Date Admission Date: 04/27/2020 History of Present Illness Chief Complaint: Abdominal pain Primary Care Provider: GELY Rivas Sil Ibarra is a 74-year-old female with Alzheimer's dementia who comes to the emergency room via EMS with a 4-day history of abdominal pain, concentrated urine, fever, vomiting. She is on hospice care however the son notes this was done mainly to increase services at home. At this time he wishes everything possibly done. Unable to get any history from the patient is currently not alert and having frequent apneic episodes. In the ER she was noted to be guarding her abdomen and subsequent CT abdomen pelvis showed right perinephric stranding with urothelial thickening involving the right renal collecting system as well as the right ureter consistent with right-sided pyelonephritis/pyelitis. Allergies Allergy/AdvReac Type Severity Reaction Status Date / Time No Known Allergies Allergy Verified 04/27/20 10:18 Home Medications Home Medications Medication Instructions Recorded Confirmed Type Xarelto 20 mg PO QAM 08/27/18 04/27/20 History aspirin 81 mg PO QAM 08/27/18 04/27/20 History buspirone 10 mg PO BID PRN 08/27/18 04/27/20 History cholecalciferol (vitamin D3) 1,000 unit PO DAILY 08/27/18 04/27/20 History [Vitamin D3] donepezil 10 mg PO QAM 08/27/18 04/27/20 History levothyroxine 75 mcg PO QAM 08/27/18 04/27/20 History lisinopril 20 mg PO BID 08/27/18 04/27/20 History melatonin 2 mg PO HS 08/27/18 04/27/20 History memantine [Namenda] 10 mg PO BID 08/27/18 04/27/20 History simvastatin 20 mg PO QPM 08/27/18 04/27/20 History venlafaxine 37.5 mg PO QPM 08/27/18 04/27/20 History venlafaxine 75 mg PO QAM 08/27/18 04/27/20 History amlodipine 2.5 mg PO DAILY 04/27/20 04/27/20 History Past Med/Surg History Medical History Alzheimer's dementia C. difficile colitis Dementia (Chronic) Dementia (Acute) Diverticulitis DVT (deep venous thrombosis) Fatigue Goals of care, counseling/discussion Hypertension (Chronic) Mild sleep apnea Nocturnal hypoxia Pulmonary embolism Seizure-like activity Snoring Thyroid disease (Chronic) Witnessed episode of apnea Surgical History Hx of hysterectomy (Resolved) Family History Mother No pertinent family history Father No pertinent family history Family/Other No pertinent family history Other Family history of heart disease Family history of stroke Social History Smoking Status: Former smoker Second Hand Exposure: No; Do You Dip or Chew Tobacco: No; Tobacco Cessation Education Requested by Patient: No Hx Alcohol Use: No Hx Substance Use: No Preferred Language: British Communication Ability: Unable Contract Recruiter Required: Yes and No Beliefs That Will Affect Care: None Current Living Situation: Other Current Living Situation Comment: lives at home with son Other Information That Helps Us Care for You: No other: Minimally verbal, occasional delusions, ambulatory dysfunction d/t dementia Feels Safe at Home: Yes Safety Concerns: Feels Safe At This Time Review of Systems Review of Systems: Unobtainable due to cognitive status Physical Exam Constitutional: + ill appearing and + frail appearing; + not well nourished and no acute distress Eyes: PERRL, conjunctivae normal, anicteric sclerae ENMT: external ear and nose normal, oropharynx normal Neck: trachea midline Respiratory: normal respiratory effort, lungs clear to auscultation Cardiovascular: Rate/Rhythm: regular rhythm and + tachycardic Heart Sounds: no murmur Vessels: no JVD Extremities: + abnormal capillary refill (Prolonged for seconds in fingers, <2s centrally) and no pedal edema Gastrointestinal (Abdomen): Inspection/Auscultation: normal bowel sounds Percussion/Palpation: abdomen soft; abdomen nontender (Patient obtunded), no guarding (Noted to be guarding initially) and abdomen not rigid Skin: + turgor decreased Neurologic: + obtunded (Frequent apneic episodes, growns to noxious stimuli, GCS 7) Psychiatric: Orientation: + not alert Lymphatic: no cervical or axillary lymphadenopathy Results & Data Results & Data ([facility]) Vital Signs (Past 12 Hours) Vital Signs Temp Pulse Pulse Resp BP BP Pulse Ox 04/27/20 12:02 94 H 18 102/64 92 04/27/20 11:00 65 18 122/68 93 04/27/20 09:01 38 C H 109 H 22 86/61 L 94 Diagnostic Findings SINGLE VIEW CHEST IMPRESSION: Layering right pleural effusion with associated right basilar consolidation. ABDOMEN AND PELVIS CT WITH IV CONTRAST IMPRESSION: 1. Subtle heterogeneous enhancement within the right kidney with right perinephric fat stranding/edema. There is also urothelial thickening involving the right renal collecting system/pelvis as well as the right ureter. Therefore, this likely represents a right-sided pyelonephritis/pyelitis. Recommend correlation with urinalysis. 2. Mild bladder wall thickening which could be due to underdistention or a cystitis. 3. Dense consolidation within the base of the right lower lobe. This favors a pneumonia. Atelectasis could also have a similar appearance. 4. Trace right pleural effusion. 5. Cholelithiasis. 6. Colonic diverticulosis. No evidence for diverticulitis. 7. Additional findings as described above. ECG Indication: chest pain Rate (beats per minute): 112 Rhythm: sinus tachycardia Findings: no acute ischemic change Comparison ECG Date: from (March 04, 2019) Change: the following changes noted (ST depression in lateral leads has resolved) Code Status & VTE Plan Code Status Full - see goals of care discussion VTE Prophylaxis Plan VTE Prophylaxis will be ordered: Yes PG Care Time/CCT Total # of Minutes Spent Total Time Spent: 115 Total Time Spent with Patient: Total time spent is greater than 50% in coordination of care (as documented) at patient's floor/unit and/or counseling patient: Coding Level of Care Code 78781 Initial Inpt Care Lvl 3 Diagnoses Goals of care, counseling/discussion Z71.89 Sepsis A41.9 Sepsis acute organ dysfunction status: without acute organ dysfunction Sepsis type: sepsis due to unspecified organism Pyelonephritis of right kidney N12 Pneumonia J18.9 Pleural effusion on right J90 Apnea R06.81 History of Clostridioides difficile colitis Z86.19 Alzheimer's dementia G30.9; F02.80 History of pulmonary embolus (PE) Z86.711 (1) Sepsis Sepsis acute organ dysfunction status: without acute organ dysfunction Sepsis type: sepsis due to unspecified organism Qualified Code(s): A41.9 - Sepsis, unspecified organism
--- NOTE | 2020-04-27 12:45 | Electrocardiogram Report ---
Test Reason : Blood Pressure : / mmHG Vent. Rate : 112 BPM Atrial Rate : 112 BPM P-R Int : 152 ms QRS Dur : 084 ms QT Int : 294 ms P-R-T Axes : 025 005 019 degrees QTc Int : 401 ms Sinus tachycardia Otherwise normal ECG Confirmed by Moreno Aparicio ([id number]) on 04/27/2020 12:44:38 PM Referred By: REFERRED SELF Confirmed By:Moreno Aparicio
[2020-04-27 13:10] LABS: Allen Test Pos (Pos); Base Excess ABG -2.8 mEq/L (-9-1.8); HCO3 ABG 21 mmol/L (19-24); PCO2 ABG 31 mmHg (35-46); PO2 ABG 76 mmHg (80-95); pH ABG 7.44 (7.35-7.45)
--- NOTE | 2020-04-27 14:50 | Palliative Care Consultation ---
Date of Consultation April 27, 2020 Assessment & Plan (1) Goals of care, counseling/discussion: This is a74 year old female who presented to the [facility] via EMS with abdominal pain, fever, vomiting and concentrated urine that has been occurring over the past 4 days. Additional PMH includes: end-stage dementia, DVT, HTN, and PE. This patient is a patient under [facility] at home hospice. Upon evaluation in the ED, she was diagnosed with urosepsis and PNA. She was started on abx. A pleural effusion was also noted on CXR. The patients son, El and daughterChantel are present at the bedside. Currently, the patient is hemodynamically stable. She is receiving IVF at 100mL/hour. That being said, she is diaphoretic. Palliative Care was consulted to discuss goals of care in this unfortunate end-stage dementia patient on hospice care. -I met with the patient in room 215 after she was transferred from the ED. -Initially, the patients daughterChantel was at the bedside. -The patient lives with her son, El and his , Shiloh. They recently had Hospice become involved in September 2019. They use [facility]. He said ultimately, he thought it was going well and they did express they felt more uncomfortable ambulating her. They also use [facility] but has had to 'fire' a few of them as he was not happy with the care. -In speaking with the patients daughterChantel, she states she knows her mom is declining. She states that she has not known who they are for months/years now. She said she is incontinent and does not eat independently. FAST all of 6 and up to and including 7c. -She shares legal POA (copy placed on chart) with her brother. She made it clear that they have differing approaches regarding her mothers care, but she realizes the patient lives with El and she wants to preserve the relationship with El after her mother passes, so does divert her decision making to her brother for now. -I met separately with El and his Shiloh. We talked extensively about dementia and code status. I was clear that while she is 'stable' now, we needed to establish goals as she could turn quickly despite fluid resuscitation efforts. -We discussed central line placement, intubation, CPR, vasoactive medications and the details of all of the aforementioned likely not providing his mother with a positive outcome. -El was tearful and fully understanding of what I was saying, but he, for now wants her to remain a FULL CODE and would like to proceed with all resuscitation. -He would like to proceed with continued monitoring and escalate care if needed. He would be ok with her being transferred to the ICU if needed. I was very clear that she likely could decline rather rapidly, all parties understood. -Again, Chantel and lE SHARE POA which is documented. The living will indic ates she would not want aggressive measures taken; however, she does state she allows her son and daughter to override it should they feel appropriate. El, again, stated he feels he is overriding the will for now and will see how things go. -Palliative will continue to monitor and provide support throughout her hospitalization. (2) Sepsis: Sepsis acute organ dysfunction status: without acute organ dysfunction Sepsis type: sepsis due to unspecified organism Qualified Code(s): A41.9 - Sepsis, unspecified organism (3) Pyelonephritis of right kidney: (4) Alzheimer's dementia: History of Present Illness Reason for Consultation: Goals of Care Requesting Physician: Dr. Theodore Pruett Attending Physician: Felipe Pruett MD History of Present Illness This is a74 year old female who presented to the [facility] via EMS with abdominal pain, fever, vomiting and concentrated urine that has been occurring over the past 4 days. Additional PMH includes: end-stage dementia, DVT, HTN, and PE. This patient is a patient under [facility] at home hospice. Upon evaluation in the ED, she was diagnosed with urosepsis and PNA. She was started on abx. A pleural effusion was also noted on CXR. The patients sonEl and daughterChantel are present at the bedside. Currently, the patient is hemodynamically stable. She is receiving IVF at 100mL/hour. That being said, she is diaphoretic. Palliative Care was consulted to discuss goals of care in this unfortunate end-stage dementia patient on hospice care. Please see A/P for further details. Thank you kindly for involving our team with this patient. We will follow and continue to assist with conversation regarding goals of care. Allergies Allergy/AdvReac Type Severity Reaction Status Date / Time No Known Allergies Allergy Verified 04/27/20 10:18 Home Medications Home Medications Medication Instructions Recorded Confirmed Type Xarelto 20 mg PO QAM 08/27/18 04/27/20 History aspirin 81 mg PO QAM 08/27/18 04/27/20 History buspirone 10 mg PO BID PRN 08/27/18 04/27/20 History cholecalciferol (vitamin D3) 1,000 unit PO DAILY 08/27/18 04/27/20 History [Vitamin D3] donepezil 10 mg PO QAM 08/27/18 04/27/20 History levothyroxine 75 mcg PO QAM 08/27/18 04/27/20 History lisinopril 20 mg PO BID 08/27/18 04/27/20 History melatonin 2 mg PO HS 08/27/18 04/27/20 History memantine [Namenda] 10 mg PO BID 08/27/18 04/27/20 History simvastatin 20 mg PO QPM 08/27/18 04/27/20 History venlafaxine 37.5 mg PO QPM 08/27/18 04/27/20 History venlafaxine 75 mg PO QAM 08/27/18 04/27/20 History amlodipine 2.5 mg PO DAILY 04/27/20 04/27/20 History Patient History Medical History Alzheimer's dementia C. difficile colitis Dementia (Chronic) Dementia (Acute) Diverticulitis DVT (deep venous thrombosis) Fatigue Goals of care, counseling/discussion Hypertension (Chronic) Mild sleep apnea Nocturnal hypoxia Pulmonary embolism Seizure-like activity Snoring Thyroid disease (Chronic) Witnessed episode of apnea Surgical History Hx of hysterectomy (Resolved) Family History Mother No pertinent family history Father No pertinent family history Family/Other No pertinent family history Other Family history of heart disease Family history of stroke Social History Smoking Status: Former smoker Second Hand Exposure: No; Do You Dip or Chew Tobacco: No; Tobacco Cessation Education Requested by Patient: No Hx Alcohol Use: No Hx Substance Use: No Preferred Language: Romanian Communication Ability: Unable Us Customs And Border Officer Required: Yes and No Beliefs That Will Affect Care: None Current Living Situation: Other Current Living Situation Comment: lives at home with son Other Information That Helps Us Care for You: No other: Minimally verbal, occasional delusions, ambulatory dysfunction d/t dementia Feels Safe at Home: Yes Safety Concerns: Feels Safe At This Time Review of Systems Review of Systems: Unobtainable due to cognitive status Physical Exam Constitutional: + ill appearing, + frail appearing and + diaphoretic Respiratory: normal respiratory effort, lungs clear to auscultation Auscultation: + diminished lung sounds and + rhonchi (left) Cardiovascular: RRR, no murmur, no edema Rate/Rhythm: + tachycardic Gastrointestinal (Abdomen): normal bowel sounds, soft, nontender, no hepatosplenomegaly Psychiatric: Orientation: alert and cooperative; + not oriented to person, + not oriented to place and + not oriented to time Results & Data Vital Signs (Past 12 Hours) Vital Signs Temp Pulse Pulse Resp BP BP Pulse Ox 04/27/20 14:13 36.6 C 92 H 18 126/79 97 04/27/20 13:34 101 H 20 111/77 98 04/27/20 12:02 94 H 18 102/64 92 04/27/20 11:00 65 18 122/68 93 04/27/20 09:01 38 C H 109 H 22 86/61 L 94 PG Care Time/CCT Total # of Minutes Spent Total Time Spent with Patient: Total time spent is greater than 50% in coordination of care (as documented) at patient's floor/unit and/or counseling patient:100 Coding Level of Care Code 99285 Inpt Consult Level 4 Diagnoses Goals of care, counseling/discussion Z71.89 Sepsis A41.9 Sepsis acute organ dysfunction status: without acute organ dysfunction Sepsis type: sepsis due to unspecified organism Pyelonephritis of right kidney N12 Alzheimer's dementia G30.9; F02.80 Time Spent (min) 100 Time Spent Midlevel Total time spent 100 minutes with > 50% of that time spent assessing the patient, discussing goals of care with the patients adult children and IDT.
[2020-04-27] MEDS: LACTATED RINGER'S 1,000 ML IV SCH ×2 (14:51→23:44)
[2020-04-27] MEDS: PIPERACILLIN/TAZOBACTAM 3.375 GM in DEXTROSE 5% 100 ML IV SCH ×2 (16:05→23:44)
[2020-04-27] MEDS ORDERED: LACTATED RINGER'S 500 ML IV ONE (20:06)
[2020-04-27] MEDS: ACETAMINOPHEN 500 MG TAB PO PRN (20:20)
[2020-04-27] MEDS: VENLAFAXINE HCL XR 37.5 MG CAPXR PO SCH (20:20)
[2020-04-27] MEDS: MELATONIN 3 MG TAB PO SCH (20:21)
[2020-04-28] MEDS: LEVOTHYROXINE SODIUM 75 MCG TABLET PO SCH (05:43)
[2020-04-28 06:01] LABS: Basophils # (auto) 0.01 K/uL (0-0.2); Basophils % (auto) 0.1 %; Eosinophils # (auto) 0.04 K/uL (0-0.5); Eosinophils % (auto) 0.3 %; Hematocrit (blood only) 29.4 % (37-47); Hemoglobin 9.6 g/dL (12.0-16.0); Immature Granulocytes # (auto) 0.02 K/uL (0.00-0.02); Immature Granulocytes % (auto) 0.1 %; Lymphocytes % (auto) 9.7 %; Mean Corpuscular Hemoglobin 27.9 pg (25-34); Mean Corpuscular Hgb Conc 32.7 g/dL (32-36); Mean Corpuscular Volume 85.5 fL (80-100); Mean Platelet Volume 10.9 fL (7.4-10.4); Monocytes # (auto) 1.61 K/uL (0.11-0.59); Neutrophils # (auto) 10.46 K/uL (1.4-6.5); Neutrophils % (auto) 77.8 %; Platelet Count 212 K/uL (130-400); RDW Coefficient of Variation 17.5 % (11.5-14.5); RDW Standard Deviation 55.3 fL (36.4-46.3); Red Blood Count 3.44 M/uL (4.2-5.4); White Blood Count 13.44 K/uL (4.8-10.8)
[2020-04-28 06:47] LABS: Albumin Globulin Ratio 0.5 (0.9-2); Albumin Level 2.3 gm/dl (3.4-5.0); BUN Creatinine Ratio 15.5 (10-20); Bilirubin,Total 0.5 mg/dl (0.2-1); Calcium 8.7 mg/dl (8.5-10.1); Creatinine Clr Calc Pharmacy 53.6 ml/min; Est GFR (African American) 84.8; Est GFR (Non-African American) 73.1; Globulin 4.4 gm/dl (2.5-4.0); Potassium 3.2 mmol/L (3.5-5.1); Total Protein 6.7 gm/dl (6.4-8.2)
[2020-04-28] MEDS: PIPERACILLIN/TAZOBACTAM 3.375 GM in DEXTROSE 5% 100 ML IV SCH ×3 (08:44→23:28)
[2020-04-28] MEDS: LACTATED RINGER'S 1,000 ML IV SCH ×2 (08:44→18:52)
[2020-04-28] MEDS: DONEPEZIL HCL 10 MG TAB PO SCH (08:45)
[2020-04-28] MEDS: CHOLECALCIFEROL 1,000 UNITS 25 MCG TAB PO SCH (08:45)
[2020-04-28] MEDS: ASPIRIN 81 MG ECTAB PO SCH (08:45)
[2020-04-28] MEDS: MEMANTINE HCL 10 MG TAB PO SCH ×2 (08:45→20:10)
[2020-04-28] MEDS: VENLAFAXINE HCL XR 75 MG CAPXR PO SCH (08:45)
--- NOTE | 2020-04-28 09:05 | Pulmonary Consultation ---
Date of Consultation April 28, 2020 Assessment & Plan (1) Pleural effusion on right: Impression: 74-year-old female with advanced dementia admitted with pyelonephritis. There was initial concern about a pleural effusion however this was not verified on CT of the abdomen and pelvis. Recommendations: 1. Pleural effusion: No pleural effusion is identified. No pleural fluid to drain. 2. Atelectasis/consolidation of the right lower lobe. The patient is on antibiotics which should be adequate to treat underlying pneumonia. May consider follow-up imaging in 2 to 4 weeks although given her neurocognitive dysfunction I am unclear what we would necessarily do with the results. Again could consider swallow study and speech therapy evaluation for possible aspiration although again I am not sure what interventions would be undertaken if the patient were to have significant aspiration as she was previously on hospice. 3. Advanced directives: Discussed with the patient's daughter at bedside. Apparently she was on hospice but then is now been changed to a full code. I advised her that I do not think that aggressive interventions including intubation, CPR, or defibrillation would improve this patient's quality of life and may result in potential increase in pain and suffering. I would recommend transition to a more symptom based strategy. Palliative care note was reviewed. I would not recommend ICU level care in this patient as again it is unlikely to alter her baseline functional status or improve her quality of life. We will sign off at this point in time. Feel free to contact us with questions or concerns (2) Abnormal CT scan of lung: History of Present Illness Attending Physician: Maximiliano Marsh, DO History of Present Illness Asked by hospitalist to evaluate this patient with pleural effusion/empyema. History is obtained from review the electronic medical record and discussion with the hospitalist and with the patient's daughter at bedside. The patient is nonverbal due to her underlying neurocognitive dysfunction. Patient is a 74-year-old female with advanced dementia who lives with her son. She is nonverbal at baseline but does get around somewhat. She presented to the emergency room with abdominal pain fever and vomiting. She apparently had been on hospice but status was changed to full code on presentation. She had a CT scan showing right perinephric stranding with urothelial thickening consistent with right pyelonephritis. A chest x-ray was performed and was concerning for potential pleural effusion/empyema which led to a pulmonary consultation. The patient had had a CT of the abdomen performed. Interrogation of the lung bases demonstrated no significant pleural effusion but did show some consolidative changes in the lateral segment of the right lower lobe. The patient according to her daughter does intermittently cough after eating. Allergies Allergy/AdvReac Type Severity Reaction Status Date / Time No Known Allergies Allergy Verified 04/27/20 10:18 Home Medications Home Medications Medication Instructions Recorded Confirmed Type Xarelto 20 mg PO QAM 08/27/18 04/27/20 History aspirin 81 mg PO QAM 08/27/18 04/27/20 History buspirone 10 mg PO BID PRN 08/27/18 04/27/20 History cholecalciferol (vitamin D3) 1,000 unit PO DAILY 08/27/18 04/27/20 History [Vitamin D3] donepezil 10 mg PO QAM 08/27/18 04/27/20 History levothyroxine 75 mcg PO QAM 08/27/18 04/27/20 History lisinopril 20 mg PO BID 08/27/18 04/27/20 History melatonin 2 mg PO HS 08/27/18 04/27/20 History memantine [Namenda] 10 mg PO BID 08/27/18 04/27/20 History simvastatin 20 mg PO QPM 08/27/18 04/27/20 History venlafaxine 37.5 mg PO QPM 08/27/18 04/27/20 History venlafaxine 75 mg PO QAM 08/27/18 04/27/20 History amlodipine 2.5 mg PO DAILY 04/27/20 04/27/20 History Patient History Medical History Alzheimer's dementia C. difficile colitis Dementia (Chronic) Dementia (Acute) Diverticulitis DVT (deep venous thrombosis) Fatigue Goals of care, counseling/discussion Hypertension (Chronic) Mild sleep apnea Nocturnal hypoxia Pulmonary embolism Seizure-like activity Snoring Thyroid disease (Chronic) Witnessed episode of apnea Surgical History Hx of hysterectomy (Resolved) Family History Mother No pertinent family history Father No pertinent family history Family/Other No pertinent family history Other Family history of heart disease Family history of stroke Social History Smoking Status: Former smoker Second Hand Exposure: No; Do You Dip or Chew Tobacco: No; Tobacco Cessation Education Requested by Patient: No Hx Alcohol Use: No Hx Substance Use: No Preferred Language: Urdu Communication Ability: Unable Communication Tools: Facial Expression and Physical Gestures 1St Grade Teacher Required: Yes and No Beliefs That Will Affect Care: None Current Living Situation: Other Current Living Situation Comment: lives at home with son Other Information That Helps Us Care for You: No other: Minimally verbal, occasional delusions, ambulatory dysfunction d/t dementia Feels Safe at Home: Yes Safety Concerns: Feels Safe At This Time Review of Systems Review of Systems: Please refer to admission H&P. No additions or deletions Physical Exam Constitutional: + ill appearing and + frail appearing; + not well nourished and no acute distress Eyes: PERRL, conjunctivae normal, anicteric sclerae ENMT: external ear and nose normal, oropharynx normal Neck: trachea midline Respiratory: normal respiratory effort, lungs clear to auscultation Cardiovascular: Rate/Rhythm: regular rhythm and + tachycardic Heart Sounds: no murmur Vessels: no JVD Extremities: + abnormal capillary refill (Prolonged for seconds in fingers, <2s centrally) and no pedal edema Gastrointestinal (Abdomen): Inspection/Auscultation: normal bowel sounds Percussion/Palpation: abdomen soft; abdomen nontender (Patient obtunded), no guarding (Noted to be guarding initially) and abdomen not rigid Skin: + turgor decreased Neurologic: + obtunded (Frequent apneic episodes, growns to noxious stimuli, GCS 7) Psychiatric: Orientation: + not alert Lymphatic: no cervical or axillary lymphadenopathy Results & Data Results & Data ([facility]) Vital Signs (Past 12 Hours) Vital Signs Temp Pulse Pulse Resp BP BP Pulse Ox 04/28/20 08:05 37.0 C 117 H 20 176/90 H 96 04/28/20 04:10 97 H 20 95 04/28/20 03:14 36.6 C 106 H 20 144/60 H 97 04/28/20 01:33 104 H 04/28/20 00:00 36.6 C 102 H 21 136/96 96 04/27/20 22:36 104 H 18 93 04/27/20 22:05 36.9 C 04/27/20 21:00 38.3 C H 115 H 115 H 24 136/70 96 Laboratory Results 04/28/20 05:38 04/28/20 05:38 Diagnostic Findings Chest x-ray independently reviewed. Slight elevation of the right hemidiaphragm with some airspace opacity in the lateral aspect of the right lower chest. CT the abdomen and pelvis was reviewed. No pleural effusion identified. Airspace opacity/consolidative changes noted in the lateral segment of the right lower lobe. No suspicious mediastinal or hilar adenopathy PG Care Time/CCT Total # of Minutes Spent Total Time Spent with Patient: Total time spent is greater than 50% in coordination of care (as documented) at patient's floor/unit and/or counseling patient: Coding Level of Care Code 27646 Initial Inpt Care Lvl 3 Diagnoses Pleural effusion on right J90 Abnormal CT scan of lung R91.8
--- NOTE | 2020-04-28 10:18 | Hospitalist Progress Note ---
Date of Service April 28, 2020 Assessment & Plan (1) Sepsis: Lactate WNL Pyelonephritis, possible pneumonia as source Follow blood and urine cultures - urine with several species, blood with gram neg bacilli Empiric antibiotics with Daptomycin, Zosyn and Levaquin, continue for today, if blood is sensitive to Levaquin then likely transition to just Levaquin, complete 14 days repeat blood cultures tomorrow MRSA nose swab negative and unlikely MRSA pneumonia based on clinical presentation highly suspicious source is urine rather than pneumonia driving her sepsis. Adequately fluid resuscitated in the ER (30ml/kg, 1800ml) with 2L NSS, continue LR 100ml/hr and monitor UO continue gentle fluids as intake not great (2) Pyelonephritis of right kidney: treat with Zosyn and Levaquin WBC coming down to 13k, no fever, BP stable tachycardia as response to infection (3) Pneumonia: Right lower lobe concerning for aspiration pneumonia. Will need speech consult if she wakes up enough to eat. continue broad spectrum antibiotics no hypoxic respiratory failure (4) Pleural effusion on right: resume Xarelto, no plan for thoracentesis (5) Apnea: Witnessed episodes in the emergency room while patient is asleep. Son reports is not unusual for her. ABG stat to assess for CO2 retention CPAP while napping and at night (6) History of Clostridioides difficile colitis: Monitor for watery stools while on broad spectrum antibiotics. Low threshold to start vancomycin PO (7) Alzheimer's dementia: Continue venlafaxine due to risk of withdrawal restart memantine and donepezil. (8) History of pulmonary embolus (PE): resume Xarelto (9) Goals of care, counseling/discussion: Patient previously on hospice care. Discussed in great detail at bedside regarding CODE STATUS. His son reports he has power of real estate attorney and has paperwork for this although not with him at present. At the present time he wishes everything possibly done including full CPR with cardiac defibrillation and intubation/ventilation in the event of a cardiac arrest. Discussed with Roxy from palliative care, appreciate her assistance Admission and Anticipated Discharge Date Admission Date: April 27, 2020 Subjective patient stable this morning, blood pressure actually quite elevated, no signs of shock she is awake, took her medications, poor oral intake but her daughter says this is normal for her reviewed chart from admission yesterday reviewed labs, WBC improved to 13k, Hb stable at 9.6, Cr improved to 0.8, K is slightly low blood cultures both growing out GN bacilli urine culture with several different bacteria updated her daughter at the bedside, will keep three antibiotics for now, plan to taper to one tomorrow Review of Systems Review of Systems: Unobtainable due to cognitive status (dementia) Physical Exam Constitutional: WD/WN, vitals as above no acute distress Eyes: PERRL, conjunctivae normal, anicteric sclerae ENMT: external ear and nose normal, oropharynx normal Mouth: + dry oral mucous membranes Neck: trachea midline, no thyromegaly Respiratory: normal respiratory effort, lungs clear to auscultation Auscultation: + diminished lung sounds (bases) Cardiovascular: Rate/Rhythm: regular rhythm and + tachycardic Heart Sounds: normal S1 and normal S2; no murmur Vessels: no JVD Extremities: normal capillary refill (extremities warm); no edema Gastrointestinal (Abdomen): normal bowel sounds, soft, nontender, no hepatosplenomegaly Musculoskeletal: Head/Neck/Chest: normocephalic, head atraumatic and neck supple Extremities: extremities normal to inspection (moving all extremities) Skin: no rashes, warm and dry Neurologic: patellar DTR's 2+ bilat, sensation intact and PERRL, EOMI, accommodation nl, no face palsy, no dysarthria Psychiatric: Orientation: alert; + not oriented x 3 Lymphatic: no cervical or axillary lymphadenopathy Results & Data Results & Data ([facility]) Vital Signs (Past 12 Hours) Vital Signs Temp Pulse Pulse Resp BP BP Pulse Ox 04/28/20 08:05 37.0 C 117 H 20 176/90 H 96 04/28/20 04:10 97 H 20 95 04/28/20 03:14 36.6 C 106 H 20 144/60 H 97 04/28/20 01:33 104 H 04/28/20 00:00 36.6 C 102 H 21 136/96 96 04/27/20 22:36 104 H 18 93 Laboratory Results Laboratory Results - last 24 hr 04/27/20 04/27/20 04/27/20 09:20 10:20 12:48 WBC RBC Hgb Hct MCV MCH MCHC RDW Std Deviation RDW Coeff of Fabiano Plt Count MPV Immature Gran % (Auto) Neut % (Auto) Lymph % (Auto) Josephine % (Auto) Eos % (Auto) Baso % (Auto) Neut # (Auto) Lymph # (Auto) Josephine # (Auto) Eos # (Auto) Baso # (Auto) Immature Gran # (Auto) ABG pH 7.44 ABG pCO2 31 L ABG pO2 76 L ABG HCO3 21 ABG O2 Saturation 95.0 ABG Base Excess -2.8 Antony Test Pos Barometric Pressure 732.7 Oxygen Given ROOM AIR Sodium Potassium Chloride Carbon Dioxide Anion Gap BUN Creatinine Est Cr Clr Drug Dosing Est GFR ( Amer) Est GFR (Non-Af Amer) BUN/Creatinine Ratio Glucose POC Glucose Calcium Total Bilirubin AST ALT Alkaline Phosphatase Total Protein Albumin Globulin Albumin/Globulin Ratio Procalcitonin 4.94 H Urine Color Yellow Urine Appearance Cloudy A Urine pH 8.5 H Ur Specific [place] 1.019 Urine Protein 2+ H Urine Glucose (UA) Negative Urine Ketones Negative Urine Blood 2+ H Urine Nitrite Negative Urine Bilirubin Negative Urine Urobilinogen Negative Ur Leukocyte Esterase 2+ H Urine WBC (Auto) >30 H Urine RBC (Auto) 10-30 H U Hyaline Cast (Auto) 1-5 U Epithel Cells (Auto) 20-30 H Urine Bacteria (Auto) 2+ H Nasal Screen MRSA (PCR) 04/27/20 04/27/20 04/28/20 16:25 Unknown 05:38 WBC 13.44 H RBC 3.44 L Hgb 9.6 L Hct 29.4 L MCV 85.5 MCH 27.9 MCHC 32.7 RDW Std Deviation 55.3 H RDW Coeff of Fabiano 17.5 H Plt Count 212 MPV 10.9 H Immature Gran % (Auto) 0.1 Neut % (Auto) 77.8 Lymph % (Auto) 9.7 Josephine % (Auto) 12.0 Eos % (Auto) 0.3 Baso % (Auto) 0.1 Neut # (Auto) 10.46 H Lymph # (Auto) 1.30 Josephine # (Auto) 1.61 H Eos # (Auto) 0.04 Baso # (Auto) 0.01 Immature Gran # (Auto) 0.02 ABG pH ABG pCO2 ABG pO2 ABG HCO3 ABG O2 Saturation ABG Base Excess Antony Test Barometric Pressure Oxygen Given Sodium Potassium Chloride Carbon Dioxide Anion Gap BUN Creatinine Est Cr Clr Drug Dosing Est GFR ( Amer) Est GFR (Non-Af Amer) BUN/Creatinine Ratio Glucose POC Glucose 92 Calcium Total Bilirubin AST ALT Alkaline Phosphatase Total Protein Albumin Globulin Albumin/Globulin Ratio Procalcitonin Urine Color Urine Appearance Urine pH Ur Specific [place] Urine Protein Urine Glucose (UA) Urine Ketones Urine Blood Urine Nitrite Urine Bilirubin Urine Urobilinogen Ur Leukocyte Esterase Urine WBC (Auto) Urine RBC (Auto) U Hyaline Cast (Auto) U Epithel Cells (Auto) Urine Bacteria (Auto) Nasal Screen MRSA (PCR) Negative 04/28/20 05:38 WBC RBC Hgb Hct MCV MCH MCHC RDW Std Deviation RDW Coeff of Fabiano Plt Count MPV Immature Gran % (Auto) Neut % (Auto) Lymph % (Auto) Josephine % (Auto) Eos % (Auto) Baso % (Auto) Neut # (Auto) Lymph # (Auto) Josephine # (Auto) Eos # (Auto) Baso # (Auto) Immature Gran # (Auto) ABG pH ABG pCO2 ABG pO2 ABG HCO3 ABG O2 Saturation ABG Base Excess Antony Test Barometric Pressure Oxygen Given Sodium 141 Potassium 3.2 L D Chloride 111 H Carbon Dioxide 23 Anion Gap 7.0 BUN 12 D Creatinine 0.80 Est Cr Clr Drug Dosing 53.6 Est GFR ( Amer) 84.8 Est GFR (Non-Af Amer) 73.1 BUN/Creatinine Ratio 15.5 Glucose 114 H POC Glucose Calcium 8.7 Total Bilirubin 0.5 AST 33 ALT 29 Alkaline Phosphatase 143 H Total Protein 6.7 Albumin 2.3 L Globulin 4.4 H Albumin/Globulin Ratio 0.5 L Procalcitonin Urine Color Urine Appearance Urine pH Ur Specific [place] Urine Protein Urine Glucose (UA) Urine Ketones Urine Blood Urine Nitrite Urine Bilirubin Urine Urobilinogen Ur Leukocyte Esterase Urine WBC (Auto) Urine RBC (Auto) U Hyaline Cast (Auto) U Epithel Cells (Auto) Urine Bacteria (Auto) Nasal Screen MRSA (PCR) Microbiology 04/27/20 09:20 Blood Aerobic Blood Culture - Preliminary No growth in Aerobic bottle after 24 hours. 04/27/20 09:20 Blood Anaerobic Blood Culture - Preliminary Gram negative bacilli 04/27/20 10:20 Urine,Straight Cath Urine Culture - Final Three types of organisms present, all high counts. Repeat collection recommended. No further identifications or sensitivities to follow. 04/27/20 09:52 Blood Anaerobic Blood Culture - Preliminary Gram negative bacilli Medications Administered Current Inpatient Medications Acetaminophen (Tylenol) 1,000 mg PO Q6H PRN PRN Reason: Fever or headache Stop: 05/27/20 20:03 Last Admin: 04/27/20 20:20 Dose: 1,000 mg Documented by: [facility]mlodipine Besylate ([facility]asc) [facility] [place]: 05/28/20 08:59 Aspirin (Ecotrin Ectab) [facility] [place]: 05/28/20 08:59 Last Admin: 04/28/20 08:45 Dose: 81 mg Documented by: Buspirone HCl (Buspar) 10 mg PO BID PRN PRN Reason: Anxiety Stop: 05/27/20 14:11 Donepezil HCl (Aricept) 10 [facility] [place]: 05/28/20 08:59 Last Admin: 04/28/20 08:45 Dose: 10 mg Documented by: Piperacillin Sod/Tazobactam (Sod 3.375 gm/ Dextrose) 115 mls @ 28.75 mls/hr IV Q8H [facility]; Protocol Stop: 05/04/20 15:59 Last Admin: 04/28/20 08:44 Dose: 28.8 mls/hr Documented by: Daptomycin 300 mg/ Syringe 6 mls @ 3 mls/min IV Q24H [facility]; Protocol Stop: 05/08/20 10:59 Lactated Ringer's (Lr) 1,000 mls @ 80 mls/hr IV .[id number] [facility] Stop: 05/27/20 14:44 Last Admin: 04/28/20 08:44 Dose: 100 mls/hr Documented by: Levofloxacin/Dextrose (Levaquin/D5w) 750 mg in 150 mls @ 100 mls/hr IV Q48H [facility]; Protocol Stop: 05/09/20 11:59 Ioversol (Optiray 320 100ml) 94 ml IV ONCE PRN PRN Reason: Interaction Checking Stop: 05/01/20 11:25 Last Admin: 04/27/20 11:28 Dose: 94 ml Documented by: Levothyroxine Sodium (Synthroid) 75 mcg PO DAILYBB [facility] Stop: 05/28/20 06:29 Last Admin: 04/28/20 05:43 Dose: 75 mcg Documented by: Lisinopril (Zestril) 20 mg PO BID [facility] Stop: 05/28/20 08:59 Melatonin (Melatonin) 3 mg PO HS [facility] Stop: 05/27/20 20:59 Last Admin: 04/27/20 20:21 Dose: 3 mg Documented by: Memantine (Namenda) 10 mg PO BID [facility] Stop: 05/28/20 08:59 Last Admin: 04/28/20 08:45 Dose: 10 mg Documented by: Miscellaneous Information (Consult) 1 ea N/A UD PRN PRN Reason: Consult Stop: 05/27/20 09:46 Miscellaneous Information (Consult) 1 ea N/A UD PRN PRN Reason: Consult Stop: 05/27/20 10:41 Venlafaxine HCl (Effexor Extended Release) 37.5 mg PO QPM [facility] Stop: 05/27/20 20:59 Last Admin: 04/27/20 20:20 Dose: 37.5 mg Documented by: Venlafaxine HCl (Effexor Extended Release) 75 mg PO QAM [facility] Stop: 05/28/20 08:59 Last Admin: 04/28/20 08:45 Dose: 75 mg Documented by: Vitamin D (Vitamin D3) 1,000 units PO DAILY [facility] Stop: 05/28/20 08:59 Last Admin: 04/28/20 08:45 Dose: 1,000 units Documented by: PG Care Time/CCT Total # of Minutes Spent Total Time Spent with Patient: Total time spent is greater than 50% in coordination of care (as documented) at patient's floor/unit and/or counseling patient: Coding Level of Care Code 48156 Subseq Hosp Care Lvl 3 Diagnoses Sepsis A41.9 Sepsis acute organ dysfunction status: unspecified Sepsis type: sepsis due to unspecified organism Pyelonephritis of right kidney N12 Pneumonia J18.9 Laterality: right Lung location: lower lobe of lung Pneumonia type: due to unspecified organism Pleural effusion on right J90 Apnea R06.81 History of Clostridioides difficile colitis Z86.19 Alzheimer's dementia G30.9; F02.80 History of pulmonary embolus (PE) Z86.711 Goals of care, counseling/discussion Z71.89 (1) Sepsis Sepsis acute organ dysfunction status: unspecified Sepsis type: sepsis due to unspecified organism Qualified Code(s): A41.9 - Sepsis, unspecified organism (2) Pneumonia Laterality: right Lung location: lower lobe of lung Pneumonia type: due to unspecified organism Qualified Code(s): J18.9 - Pneumonia, unspecified organism
[2020-04-28] MEDS ORDERED: DAPTOmycin 300 MG in SYRINGE 0 ML IV SCH (11:00)
[2020-04-28] MEDS: lisinopriL 20 MG TAB PO SCH ×2 (12:00→20:18)
[2020-04-28] MEDS: AMLODIPINE BESYLATE 5 MG TAB PO SCH (12:00)
[2020-04-28] MEDS: ACETAMINOPHEN 500 MG TAB PO PRN (20:06)
[2020-04-28] MEDS: VENLAFAXINE HCL XR 37.5 MG CAPXR PO SCH (20:11)
[2020-04-28] MEDS: MELATONIN 3 MG TAB PO SCH (20:11)
--- NOTE | 2020-04-28 22:34 | Electrocardiogram Report ---
Test Reason : Blood Pressure : / mmHG Vent. Rate : 120 BPM Atrial Rate : 120 BPM P-R Int : 166 ms QRS Dur : 082 ms QT Int : 314 ms P-R-T Axes : 048 024 038 degrees QTc Int : 443 ms Sinus tachycardia Nonspecific ST abnormality Abnormal ECG When compared with ECG of 27-APR-2020 09:40, No significant change was found Confirmed by Scott Don ([id number]) on 04/28/2020 10:34:09 PM Referred By: REFERRED SELF Confirmed By:Scott Don
[2020-04-29] MEDS: LEVOTHYROXINE SODIUM 75 MCG TABLET PO SCH (06:17)
[2020-04-29] MEDS: LACTATED RINGER'S 1,000 ML IV SCH (07:34)
[2020-04-29 07:53] LABS: Basophils # (auto) 0.03 K/uL (0-0.2); Basophils % (auto) 0.2 %; Eosinophils # (auto) 0.14 K/uL (0-0.5); Eosinophils % (auto) 1.2 %; Hematocrit (blood only) 30.4 % (37-47); Hemoglobin 9.8 g/dL (12.0-16.0); Immature Granulocytes # (auto) 0.05 K/uL (0.00-0.02); Immature Granulocytes % (auto) 0.4 %; Lymphocytes # (auto) 1.73 K/uL (1.2-3.4); Lymphocytes % (auto) 14.3 %; Mean Corpuscular Hgb Conc 32.2 g/dL (32-36); Mean Corpuscular Volume 83.7 fL (80-100); Mean Platelet Volume 10.2 fL (7.4-10.4); Monocytes # (auto) 1.54 K/uL (0.11-0.59); Monocytes % (auto) 12.8 %; Neutrophils # (auto) 8.58 K/uL (1.4-6.5); Neutrophils % (auto) 71.1 %; Platelet Count 235 K/uL (130-400); RDW Coefficient of Variation 17.2 % (11.5-14.5); RDW Standard Deviation 53.2 fL (36.4-46.3); Red Blood Count 3.63 M/uL (4.2-5.4); White Blood Count 12.07 K/uL (4.8-10.8)
[2020-04-29 08:12] LABS: Albumin Level 2.3 gm/dl (3.4-5.0); BUN Creatinine Ratio 13.4 (10-20); Est GFR (African American) 87.4; Est GFR (Non-African American) 75.4; Potassium 3.3 mmol/L (3.5-5.1)
[2020-04-29 08:15] LABS: Albumin Globulin Ratio 0.5 (0.9-2); Bilirubin,Total 0.4 mg/dl (0.2-1); Globulin 4.6 gm/dl (2.5-4.0); Total Protein 6.9 gm/dl (6.4-8.2)
[2020-04-29] MEDS: PIPERACILLIN/TAZOBACTAM 3.375 GM in DEXTROSE 5% 100 ML IV SCH ×3 (08:58→23:06)
[2020-04-29] MEDS: POTASSIUM CHLORIDE 40 MEQ in SODIUM CHLORIDE 0.9% 1000ML 1,000 ML IV SCH ×2 (08:59→23:06)
[2020-04-29] MEDS: DONEPEZIL HCL 10 MG TAB PO SCH (09:00)
[2020-04-29] MEDS: VENLAFAXINE HCL XR 75 MG CAPXR PO SCH (09:01)
[2020-04-29] MEDS: ASPIRIN 81 MG ECTAB PO SCH (09:01)
[2020-04-29] MEDS: MEMANTINE HCL 10 MG TAB PO SCH ×2 (09:01→21:47)
[2020-04-29] MEDS: lisinopriL 20 MG TAB PO SCH ×2 (09:02→21:47)
[2020-04-29] MEDS: AMLODIPINE BESYLATE 5 MG TAB PO SCH (09:02)
[2020-04-29] MEDS: CHOLECALCIFEROL 1,000 UNITS 25 MCG TAB PO SCH (09:02)
[2020-04-29] MEDS: LEVOFLOXACIN/D5W 750 MG/150 ML BAG IV SCH (09:47)
--- NOTE | 2020-04-29 10:39 | Hospitalist Progress Note ---
Date of Service April 29, 2020 Assessment & Plan (1) Sepsis: Lactate WNL Pyelonephritis, possible pneumonia as source Follow blood and urine cultures - urine with several species, blood with gram neg bacilli, still not more specific Empiric antibiotics with Zosyn and Levaquin, stop Daptomycin today repeat blood cultures drawn this morning MRSA nose swab negative and unlikely MRSA pneumonia based on clinical presentation highly suspicious source is urine rather than pneumonia driving her sepsis. continue NSS + 40 of KCl for today, likely stop tomorrow (2) Pyelonephritis of right kidney: treat with Zosyn and Levaquin WBC coming down to 12k, no fever, BP stable tachycardia as response to infection, HR down to low 100's today, better (3) Pneumonia: Right lower lobe concerning for aspiration pneumonia. continue broad spectrum antibiotics no hypoxic respiratory failure consult speech therapy (4) Pleural effusion on right: resume Xarelto, no plan for thoracentesis (5) Apnea: Witnessed episodes in the emergency room while patient is asleep. Son reports is not unusual for her. ABG stat to assess for CO2 retention CPAP while napping and at night (6) History of Clostridioides difficile colitis: Monitor for watery stools while on broad spectrum antibiotics. Low threshold to start vancomycin PO (7) Alzheimer's dementia: Continue venlafaxine due to risk of withdrawal restart memantine and donepezil. (8) History of pulmonary embolus (PE): resume Xarelto (9) Goals of care, counseling/discussion: Patient previously on hospice care. Discussed in great detail at bedside regarding CODE STATUS. His son reports he has power of risk control officer and has paperwork for this although not with him at present. At the present time he wishes everything possibly done including full CPR with cardiac defibrillation and intubation/ventilation in the event of a cardiac arrest. Discussed with Roxy from palliative care, appreciate her assistance (10) Hypokalemia: low at 3.3 will change to NSS + 40mEq of K repeat tomorrow Admission and Anticipated Discharge Date Admission Date: April 27, 2020 Subjective patient doing great, her daughter is at the bedside she says she is a little tired right now, but she ate her breakfast, took all her medications no acute changes over night, HR is elevated in low 100's, BP stable reviewed labs, WBC trending down, Cr stable, K a little low at 3.3 blood cultures still only show GN bacilli, will stop Daptomycin d/w RN, will downgrade to medical floor d/w daughter, plan to transition to PO antibiotics if possible based on cultures patient will be here through weekend Review of Systems Review of Systems: Unobtainable due to cognitive status Physical Exam Constitutional: WD/WN, vitals as above no acute distress Eyes: PERRL, conjunctivae normal, anicteric sclerae ENMT: external ear and nose normal, oropharynx normal Neck: trachea midline, no thyromegaly Respiratory: normal respiratory effort, lungs clear to auscultation Auscultation: + diminished lung sounds (bases) Cardiovascular: Rate/Rhythm: regular rhythm and + tachycardic Heart Sounds: normal S1 and normal S2; no murmur Vessels: no JVD Extremities: normal capillary refill (extremities warm); no edema Gastrointestinal (Abdomen): normal bowel sounds, soft, nontender, no hepatosplenomegaly Musculoskeletal: Head/Neck/Chest: normocephalic, head atraumatic and neck supple Extremities: extremities normal to inspection (moving all extremities) Skin: no rashes, warm and dry Neurologic: patellar DTR's 2+ bilat, sensation intact and PERRL, EOMI, accommodation nl, no face palsy, no dysarthria Psychiatric: Orientation: alert; + not oriented x 3 Lymphatic: no cervical or axillary lymphadenopathy Results & Data Results & Data ([facility]) Vital Signs (Past 12 Hours) Vital Signs Temp Pulse Pulse Resp BP BP Pulse Ox 04/29/20 08:02 36.6 C 100 H 19 144/89 H 94 04/29/20 04:00 36.4 C L 87 19 174/86 H 97 04/29/20 03:29 80 20 97 04/28/20 23:53 116 H 04/28/20 23:50 101 H 16 95 04/28/20 23:23 37.3 C 106 H 19 147/91 H 97 Laboratory Results Laboratory Results - last 24 hr 04/29/20 04/29/20 04/29/20 07:29 07:29 07:29 WBC 12.07 H RBC 3.63 L Hgb 9.8 L Hct 30.4 L MCV 83.7 MCH 27.0 MCHC 32.2 RDW Std Deviation 53.2 H RDW Coeff of Fabiano 17.2 H Plt Count 235 MPV 10.2 Immature Gran % (Auto) 0.4 Neut % (Auto) 71.1 Lymph % (Auto) 14.3 [place] % (Auto) 12.8 Eos % (Auto) 1.2 Baso % (Auto) 0.2 Neut # (Auto) 8.58 H Lymph # (Auto) 1.73 [place] # (Auto) 1.54 H Eos # (Auto) 0.14 Baso # (Auto) 0.03 Immature Gran # (Auto) 0.05 H Sodium 140 Potassium 3.3 L Chloride 110 H Carbon Dioxide 23 Anion Gap 8.0 BUN 10 Creatinine 0.78 Est Cr Clr Drug Dosing 55.0 Est GFR ( Amer) 87.4 Est GFR (Non-Af Amer) 75.4 BUN/Creatinine Ratio 13.4 Glucose 112 H Calcium 9.0 Total Bilirubin 0.4 AST 58 H ALT 54 Alkaline Phosphatase 220 H Total Protein 6.9 Albumin 2.3 L Globulin 4.6 H Albumin/Globulin Ratio 0.5 L Procalcitonin 1.47 H Microbiology 04/27/20 09:52 Blood Aerobic Blood Culture - Preliminary No growth in Aerobic bottle after 24 hours. 04/27/20 09:52 Blood Anaerobic Blood Culture - Preliminary Gram negative bacilli 04/27/20 09:20 Blood Aerobic Blood Culture - Preliminary No growth in Aerobic bottle after 24 hours. 04/27/20 09:20 Blood Anaerobic Blood Culture - Preliminary Gram negative bacilli 04/27/20 10:20 Urine,Straight Cath Urine Culture - Final Three types of organisms present, all high counts. Repeat collection recommended. No further identifications or sensitivities to follow. Medications Administered Current Inpatient Medications Acetaminophen (Tylenol) 1,000 mg PO Q6H PRN PRN Reason: Fever or headache Stop: 05/27/20 20:03 Last Admin: 04/28/20 20:06 Dose: 1,000 mg Documented by: Amlodipine Besylate (Norvasc) 2.5 mg PO [facility] Stop: 05/28/20 08:59 Last Admin: 04/29/20 09:02 Dose: 2.5 mg Documented by: Aspirin (Ecotrin Ectab) 81 mg PO [facility] Stop: 05/28/20 08:59 Last Admin: 04/29/20 09:01 Dose: 81 mg Documented by: Buspirone HCl (Buspar) 10 mg PO BID PRN PRN Reason: Anxiety Stop: 05/27/20 14:11 Donepezil HCl (Aricept) 10 mg PO QAM [facility] Stop: 05/28/20 08:59 Last Admin: 04/29/20 09:00 Dose: 10 mg Documented by: Piperacillin Sod/Tazobactam (Sod 3.375 gm/ Dextrose) 115 mls @ 28.75 mls/hr IV Q8H [facility]; Protocol Stop: 05/04/20 15:59 Last Admin: 04/29/20 08:58 Dose: 28.8 mls/hr Documented by: Potassium Chloride 40 meq/ (Sodium Chloride) 1,020 mls @ 80 mls/hr IV .[id number] [facility] Stop: 05/29/20 08:44 Last Admin: 04/29/20 08:59 Dose: 80 mls/hr Documented by: Levofloxacin/Dextrose (Levaquin/D5w) 750 mg in 150 mls @ 100 mls/hr IV Q24H [facility]; Protocol Stop: 05/09/20 08:59 Last Admin: 04/29/20 09:47 Dose: 100 mls/hr Documented by: Ioversol (Optiray 320 100ml) 94 ml IV ONCE PRN PRN Reason: Interaction Checking Stop: 05/01/20 11:25 Last Admin: 04/27/20 11:28 Dose: 94 ml Documented by: Levothyroxine Sodium (Synthroid) 75 mcg PO DAILYBB [facility] Stop: 05/28/20 06:29 Last Admin: 04/29/20 06:17 Dose: 75 mcg Documented by: Lisinopril (Zestril) 20 mg PO BID [facility] Stop: 05/28/20 08:59 Last Admin: 04/29/20 09:02 Dose: 20 mg Documented by: Melatonin (Melatonin) 3 mg PO HS [facility] Stop: 05/27/20 20:59 Last Admin: 04/28/20 20:11 Dose: 3 mg Documented by: Memantine (Namenda) 10 mg PO BID [facility] Stop: 05/28/20 08:59 Last Admin: 04/29/20 09:01 Dose: 10 mg Documented by: Miscellaneous Information (Consult) 1 ea N/A UD PRN PRN Reason: Consult Stop: 05/27/20 09:46 Venlafaxine HCl (Effexor Extended Release) 37.5 mg PO QPM [facility] Stop: 05/27/20 20:59 Last Admin: 04/28/20 20:11 Dose: 37.5 mg Documented by: Venlafaxine HCl (Effexor Extended Release) 75 mg PO QAM [facility] Stop: 05/28/20 08:59 Last Admin: 04/29/20 09:01 Dose: 75 mg Documented by: Vitamin D (Vitamin D3) 1,000 units PO DAILY [facility] Stop: 05/28/20 08:59 Last Admin: 04/29/20 09:02 Dose: 1,000 units Documented by: PG Care Time/CCT Total # of Minutes Spent Total Time Spent with Patient: Total time spent is greater than 50% in coordination of care (as documented) at patient's floor/unit and/or counseling patient: Coding Level of Care Code 89982 Subseq Hosp Care Lvl 3 Diagnoses Sepsis A41.9 Sepsis type: sepsis due to unspecified organism Sepsis acute organ dysfunction status: unspecified Pyelonephritis of right kidney N12 Pneumonia J18.9 Laterality: right Lung location: lower lobe of lung Pneumonia type: due to unspecified organism Pleural effusion on right J90 Apnea R06.81 History of Clostridioides difficile colitis Z86.19 Alzheimer's dementia G30.9; F02.80 History of pulmonary embolus (PE) Z86.711 Goals of care, counseling/discussion Z71.89 Hypokalemia E87.6 (1) Sepsis Sepsis type: sepsis due to unspecified organism Sepsis acute organ dysfunction status: unspecified Qualified Code(s): A41.9 - Sepsis, unspecified organism (2) Pneumonia Laterality: right Lung location: lower lobe of lung Pneumonia type: due to unspecified organism Qualified Code(s): J18.9 - Pneumonia, unspecified organism
[2020-04-29] MEDS ORDERED: LEVOFLOXACIN/D5W 750 MG/150 ML BAG IV SCH (12:00)
[2020-04-29] MEDS: VENLAFAXINE HCL XR 37.5 MG CAPXR PO SCH (21:47)
[2020-04-29] MEDS: MELATONIN 3 MG TAB PO SCH (21:47)
[2020-04-30 06:00] LABS: Basophils # (auto) 0.03 K/uL (0-0.2); Basophils % (auto) 0.2 %; Eosinophils # (auto) 0.18 K/uL (0-0.5); Eosinophils % (auto) 1.1 %; Hematocrit (blood only) 27.5 % (37-47); Hemoglobin 9.1 g/dL (12.0-16.0); Immature Granulocytes # (auto) 0.14 K/uL (0.00-0.02); Immature Granulocytes % (auto) 0.9 %; Lymphocytes # (auto) 2.35 K/uL (1.2-3.4); Lymphocytes % (auto) 14.8 %; Mean Corpuscular Hemoglobin 28.1 pg (25-34); Mean Corpuscular Hgb Conc 33.1 g/dL (32-36); Mean Corpuscular Volume 84.9 fL (80-100); Mean Platelet Volume 10.8 fL (7.4-10.4); Monocytes # (auto) 1.77 K/uL (0.11-0.59); Monocytes % (auto) 11.1 %; Neutrophils # (auto) 11.45 K/uL (1.4-6.5); Neutrophils % (auto) 71.9 %; Platelet Count 282 K/uL (130-400); RDW Coefficient of Variation 17.5 % (11.5-14.5); RDW Standard Deviation 55.1 fL (36.4-46.3); Red Blood Count 3.24 M/uL (4.2-5.4); White Blood Count 15.92 K/uL (4.8-10.8)
[2020-04-30] MEDS: LEVOTHYROXINE SODIUM 75 MCG TABLET PO SCH (06:07)
[2020-04-30 06:38] LABS: Albumin Globulin Ratio 0.5 (0.9-2); BUN Creatinine Ratio 15.5 (10-20); Bilirubin,Total 0.4 mg/dl (0.2-1); Calcium 8.6 mg/dl (8.5-10.1); Creatinine Clr Calc Pharmacy 49.9 ml/min; Est GFR (African American) 77.7; Globulin 4.1 gm/dl (2.5-4.0); Potassium 4.1 mmol/L (3.5-5.1); Total Protein 6.1 gm/dl (6.4-8.2)
[2020-04-30] MEDS: LEVOFLOXACIN/D5W 750 MG/150 ML BAG IV SCH (08:23)
[2020-04-30] MEDS: MEMANTINE HCL 10 MG TAB PO SCH ×2 (08:41→21:12)
[2020-04-30] MEDS: VENLAFAXINE HCL XR 75 MG CAPXR PO SCH (08:41)
[2020-04-30] MEDS: ASPIRIN 81 MG ECTAB PO SCH (08:41)
[2020-04-30] MEDS: DONEPEZIL HCL 10 MG TAB PO SCH (08:41)
[2020-04-30] MEDS: AMLODIPINE BESYLATE 5 MG TAB PO SCH (08:42)
[2020-04-30] MEDS: lisinopriL 20 MG TAB PO SCH ×2 (08:42→21:12)
[2020-04-30] MEDS: CHOLECALCIFEROL 1,000 UNITS 25 MCG TAB PO SCH (08:42)
--- NOTE | 2020-04-30 08:59 | XRay Report ---
XR chest 1V portable HISTORY: 74 years-old Female low grade fever, rising WBC acute fever with leukocytosis COMPARISON: Chest radiograph and CT abdomen pelvis 04/27/2020 TECHNIQUE: Portable AP view of the chest. FINDINGS: Cardiomediastinal and hilar silhouettes are within normal limits. Calcified plaque of the thoracic ao rtic arch. Trace left and small right pleural effusions are unchanged with mild right lung base conso lidation. No pneumothorax or overt pulmonary edema. Degenerative changes of the shoulders and spine. Mild convex right curvature of the midthoracic spine. IMPRESSION: Unchanged small right and trace left pleural effusions with right lung base consolidation . ACT 112: Negative or not required by law. The above report was generated using voice recognition software. It may contain grammatical, syntax o r spelling errors. Electronically signed by: Rajesh Roberts M.D. 04/30/2020 8:58 AM
[2020-04-30] MEDS: PIPERACILLIN/TAZOBACTAM 3.375 GM in DEXTROSE 5% 100 ML IV SCH ×3 (10:07→23:40)
[2020-04-30] MEDS: POTASSIUM CHLORIDE 40 MEQ in SODIUM CHLORIDE 0.9% 1000ML 1,000 ML IV SCH ×2 (10:07→22:37)
--- NOTE | 2020-04-30 12:28 | Hospitalist Progress Note ---
Date of Service April 30, 2020 Assessment & Plan (1) Sepsis: Lactate WNL on admission, no evidence of shock Pyelonephritis, possible pneumonia as source Follow blood and urine cultures - urine with several species, blood culture with Proteus, culver sensitive continue Zosyn and Levaquin for now since she had low grade temp and WBC up slightly to 15k if no fever and WBC going down tomorrow then will change to Levaquin PO, complete 14 days from negative blood culture repeat blood cultures drawn 04/29, no growth at this point MRSA nose swab negative and unlikely MRSA pneumonia based on clinical presentation highly suspicious source is urine rather than pneumonia driving her sepsis. continue NSS + 40 of KCl for today as she is not drinking as well as yesterday reassess tomorrow (2) Pyelonephritis of right kidney: treat with Zosyn and Levaquin WBC up to 15k, no fever, BP stable tachycardia as response to infection, HR down to low 100's today, better (3) Pneumonia: Right lower lobe concerning for aspiration pneumonia. continue broad spectrum antibiotics no hypoxic respiratory failure consult speech therapy (4) Pleural effusion on right: resume Xarelto, no plan for thoracentesis (5) Apnea: Witnessed episodes in the emergency room while patient is asleep. Son reports is not unusual for her. ABG stat to assess for CO2 retention CPAP while napping and at night (6) History of Clostridioides difficile colitis: Monitor for watery stools while on broad spectrum antibiotics. Low threshold to start vancomycin PO (7) Alzheimer's dementia: Continue venlafaxine due to risk of withdrawal restart memantine and donepezil. (8) History of pulmonary embolus (PE): resume Xarelto (9) Goals of care, counseling/discussion: Patient previously on hospice care. Discussed in great detail at bedside regarding CODE STATUS. His son reports he has power of banking attorney and has paperwork for this although not with him at present. At the present time he wishes everything possibly done including full CPR with cardiac defibrillation and intubation/ventilation in the event of a cardiac arrest. Discussed with Roxy from palliative care, appreciate her assistance (10) Hypokalemia: up to 4.1 will continue NSS + 40mEq of K repeat tomorrow Admission and Anticipated Discharge Date Admission Date: April 27, 2020 Subjective patient doing okay, a little fatigued not eating or drinking as well, her daughter thinks she is just tired of chewing low grade temperature but no fever, slight increase in WBC to 15k other labs are stable blood culture with Proteus, culver sensitive, discussed with daughter that we should be able to use oral antibiotics will revisit patient this afternoon Review of Systems Review of Systems: Unobtainable due to cognitive status Physical Exam Constitutional: WD/WN, vitals as above no acute distress Eyes: PERRL, conjunctivae normal, anicteric sclerae ENMT: external ear and nose normal, oropharynx normal Mouth: + dry oral mucous membranes Neck: trachea midline, no thyromegaly Respiratory: normal respiratory effort, lungs clear to auscultation Auscultation: + diminished lung sounds (bases) Cardiovascular: Rate/Rhythm: regular rhythm and + tachycardic Heart Sounds: normal S1 and normal S2; no murmur Vessels: no JVD Extremities: normal cap illary refill (extremities warm); no edema Gastrointestinal (Abdomen): normal bowel sounds, soft, nontender, no hepatosplenomegaly Musculoskeletal: Head/Neck/Chest: normocephalic, head atraumatic and neck supple Extremities: extremities normal to inspection (moving all extremities) Skin: no rashes, warm and dry Neurologic: patellar DTR's 2+ bilat, sensation intact and PERRL, EOMI, accommodation nl, no face palsy, no dysarthria Psychiatric: Orientation: alert; + not oriented x 3 Lymphatic: no cervical or axillary lymphadenopathy Results & Data Results & Data ([facility]) Vital Signs (Past 12 Hours) Vital Signs Temp Pulse Pulse Resp BP Pulse Ox 04/30/20 08:42 36.6 C 105 H 18 129/79 96 04/30/20 03:45 110 H 18 95 Laboratory Results Laboratory Results - last 24 hr 04/30/20 04/30/20 05:09 05:09 WBC 15.92 H RBC 3.24 L Hgb 9.1 L Hct 27.5 L MCV 84.9 MCH 28.1 MCHC 33.1 RDW Std Deviation 55.1 H RDW Coeff of Fabiano 17.5 H Plt Count 282 MPV 10.8 H Immature Gran % (Auto) 0.9 Neut % (Auto) 71.9 Lymph % (Auto) 14.8 [place] % (Auto) 11.1 Eos % (Auto) 1.1 Baso % (Auto) 0.2 Neut # (Auto) 11.45 H Lymph # (Auto) 2.35 [place] # (Auto) 1.77 H Eos # (Auto) 0.18 Baso # (Auto) 0.03 Immature Gran # (Auto) 0.14 H Sodium 143 Potassium 4.1 D Chloride 116 H Carbon Dioxide 21 Anion Gap 6.0 BUN 13 Creatinine 0.86 Est Cr Clr Drug Dosing 49.9 Est GFR ( Amer) 77.7 Est GFR (Non-Af Amer) 67.0 BUN/Creatinine Ratio 15.5 Glucose 106 H Calcium 8.6 Total Bilirubin 0.4 AST 42 H ALT 50 Alkaline Phosphatase 215 H Total Protein 6.1 L Albumin 2.0 L Globulin 4.1 H Albumin/Globulin Ratio 0.5 L Medications Administered Current Inpatient Medications Acetaminophen (Tylenol) 1,000 mg PO Q6H PRN PRN Reason: Fever or headache Stop: 05/27/20 20:03 Last Admin: 04/28/20 20:06 Dose: 1,000 mg Documented by: Amlodipine Besylate (Norvasc) 2.5 mg PO [facility] Stop: 05/28/20 08:59 Last Admin: 04/30/20 08:42 Dose: 2.5 mg Documented by: Aspirin (Ecotrin Ectab) 81 mg PO [facility] Stop: 05/28/20 08:59 Last Admin: 04/30/20 08:41 Dose: 81 mg Documented by: Buspirone HCl (Buspar) 10 mg PO BID PRN PRN Reason: Anxiety Stop: 05/27/20 14:11 Donepezil HCl (Aricept) 10 mg PO [facility] Stop: 05/28/20 08:59 Last Admin: 04/30/20 08:41 Dose: 10 mg Documented by: Piperacillin Sod/Tazobactam (Sod 3.375 gm/ Dextrose) 115 mls @ 28.75 mls/hr IV Q8H [facility]; Protocol Stop: 05/04/20 15:59 Last Admin: 04/30/20 10:07 Dose: 28.8 mls/hr Documented by: Potassium Chloride 40 meq/ (Sodium Chloride) 1,020 mls @ 80 mls/hr IV .[id number] [facility] Stop: 05/29/20 08:44 Last Admin: 04/30/20 10:07 Dose: 80 mls/hr Documented by: Levofloxacin/Dextrose (Levaquin/D5w) 750 mg in 150 mls @ 100 mls/hr IV Q24H [facility]; Protocol Stop: 05/09/20 08:59 Last Infusion: 04/30/20 11:40 Dose: Infused Documented by: Ioversol (Optiray 320 100ml) 94 ml IV ONCE PRN PRN Reason: Interaction Checking Stop: 05/01/20 11:25 Last Admin: 04/27/20 11:28 Dose: 94 ml Documented by: Levothyroxine Sodium (Synthroid) 75 mcg PO DAILYBB [facility] Stop: 05/28/20 06:29 Last Admin: 04/30/20 06:07 Dose: 75 mcg Documented by: Lisinopril (Zestril) 20 mg PO BID [facility] Stop: 05/28/20 08:59 Last Admin: 04/30/20 08:42 Dose: 20 mg Documented by: Melatonin (Melatonin) 3 mg PO HS [facility] Stop: 05/27/20 20:59 Last Admin: 04/29/20 21:47 Dose: 3 mg Documented by: Memantine (Namenda) 10 mg PO BID [facility] Stop: 05/28/20 08:59 Last Admin: 04/30/20 08:41 Dose: 10 mg Documented by: Miscellaneous Information (Consult) 1 ea N/A UD PRN PRN Reason: Consult Stop: 05/27/20 09:46 Venlafaxine HCl (Effexor Extended Release) 37.5 mg PO QPM [facility] Stop: 05/27/20 20:59 Last Admin: 04/29/20 21:47 Dose: 37.5 mg Documented by: Venlafaxine HCl (Effexor Extended Release) 75 mg PO QAM [facility] Stop: 05/28/20 08:59 Last Admin: 04/30/20 08:41 Dose: 75 mg Documented by: Vitamin D (Vitamin D3) 1,000 units PO DAILY [facility] Stop: 05/28/20 08:59 Last Admin: 04/30/20 08:42 Dose: 1,000 units Documented by: PG Care Time/CCT Total # of Minutes Spent Total Time Spent with Patient: Total time spent is greater than 50% in coordination of care (as documented) at patient's floor/unit and/or counseling patient: Coding Level of Care Code 41717 Subseq Hosp Care Lvl 3 Diagnoses Sepsis A41.9 Sepsis type: sepsis due to unspecified organism Sepsis acute organ dysfunction status: unspecified Pyelonephritis of right kidney N12 Pneumonia J18.9 Laterality: right Lung location: lower lobe of lung Pneumonia type: due to unspecified organism Pleural effusion on right J90 Apnea R06.81 History of Clostridioides difficile colitis Z86.19 Alzheimer's dementia G30.9; F02.80 History of pulmonary embolus (PE) Z86.711 Goals of care, counseling/discussion Z71.89 Hypokalemia E87.6 (1) Sepsis Sepsis type: sepsis due to unspecified organism Sepsis acute organ dysfunction status: unspecified Qualified Code(s): A41.9 - Sepsis, unspecified organism (2) Pneumonia Laterality: right Lung location: lower lobe of lung Pneumonia type: due to unspecified organism Qualified Code(s): J18.9 - Pneumonia, unspecified organism
[2020-04-30] MEDS: MELATONIN 3 MG TAB PO SCH (21:12)
[2020-04-30] MEDS: VENLAFAXINE HCL XR 37.5 MG CAPXR PO SCH (21:12)
[2020-05-01 05:55] LABS: Basophils # (auto) 0.03 K/uL (0-0.2); Basophils % (auto) 0.2 %; Eosinophils # (auto) 0.24 K/uL (0-0.5); Eosinophils % (auto) 1.6 %; Hematocrit (blood only) 28.8 % (37-47); Hemoglobin 9.2 g/dL (12.0-16.0); Immature Granulocytes # (auto) 0.25 K/uL (0.00-0.02); Immature Granulocytes % (auto) 1.6 %; Lymphocytes # (auto) 2.36 K/uL (1.2-3.4); Lymphocytes % (auto) 15.3 %; Mean Corpuscular Hemoglobin 27.1 pg (25-34); Mean Corpuscular Hgb Conc 31.9 g/dL (32-36); Mean Corpuscular Volume 84.7 fL (80-100); Monocytes # (auto) 1.58 K/uL (0.11-0.59); Monocytes % (auto) 10.2 %; Neutrophils # (auto) 10.97 K/uL (1.4-6.5); Neutrophils % (auto) 71.1 %; Platelet Count 283 K/uL (130-400); RDW Coefficient of Variation 17.4 % (11.5-14.5); RDW Standard Deviation 54.5 fL (36.4-46.3); White Blood Count 15.43 K/uL (4.8-10.8)
[2020-05-01] MEDS: LEVOTHYROXINE SODIUM 75 MCG TABLET PO SCH (06:19)
[2020-05-01 06:24] LABS: BUN Creatinine Ratio 12.3 (10-20); Creatinine Clr Calc Pharmacy 52.3 ml/min; Est GFR (African American) 82.3
[2020-05-01 06:27] LABS: Albumin Globulin Ratio 0.5 (0.9-2); Bilirubin,Total 0.3 mg/dl (0.2-1); Globulin 4.3 gm/dl (2.5-4.0); Total Protein 6.3 gm/dl (6.4-8.2)
[2020-05-01] MEDS: PIPERACILLIN/TAZOBACTAM 3.375 GM in DEXTROSE 5% 100 ML IV SCH (08:02)
[2020-05-01] MEDS: DONEPEZIL HCL 10 MG TAB PO SCH (08:42)
[2020-05-01] MEDS: CHOLECALCIFEROL 1,000 UNITS 25 MCG TAB PO SCH (08:42)
[2020-05-01] MEDS: lisinopriL 20 MG TAB PO SCH ×2 (08:42→20:43)
[2020-05-01] MEDS: ASPIRIN 81 MG CHEW PO SCH (08:42)
[2020-05-01] MEDS: VENLAFAXINE HCL XR 75 MG CAPXR PO SCH (08:42)
[2020-05-01] MEDS: MEMANTINE HCL 10 MG TAB PO SCH ×2 (08:42→20:43)
[2020-05-01] MEDS: AMLODIPINE BESYLATE 5 MG TAB PO SCH (08:43)
[2020-05-01] MEDS: POTASSIUM CHLORIDE 40 MEQ in SODIUM CHLORIDE 0.9% 1000ML 1,000 ML IV SCH (11:11)
[2020-05-01] MEDS: LEVOFLOXACIN/D5W 750 MG/150 ML BAG IV SCH (12:13)
--- NOTE | 2020-05-01 16:01 | Hospitalist Progress Note ---
Date of Service May 01, 2020 Assessment & Plan (1) Sepsis: Lactate WNL on admission, no evidence of shock Pyelonephritis, possible pneumonia as source Follow blood and urine cultures - urine with several species, blood culture with Proteus, culver sensitive treated with Zosyn and Levaquin initially change to just Levaquin today plan to convert to PO on discharge, complete 14 days from negative blood culture no true fever since the evening on 04/28, WBC is 15k but only 71% PMN repeat blood cultures drawn 04/29, no growth at this point MRSA nose swab negative and unlikely MRSA pneumonia based on clinical presentation highly suspicious source is urine rather than pneumonia driving her sepsis. stop fluids today, try to encourage more PO intake (2) Pyelonephritis of right kidney: treat with Zosyn and Levaquin WBC stable at 15k, no fever, BP stable tachycardia as response to infection, HR down to 90's today taper to just Levaquin today, will convert to PO on discharge for 14 days from 04/29 (3) Pneumonia: Right lower lobe concerning for aspiration pneumonia. continue Levaquin no hypoxic respiratory failure consult speech therapy, she did well on bedside swallow evaluation, no joe aspiration, drank from straw and swallowed applesauce d/w daughter today about video swallow, will hold off for now unsure she could cooperate at this time (4) Pleural effusion on right: resume Xarelto, no plan for thoracentesis (5) Apnea: Witnessed episodes in the emergency room while patient is asleep. Son reports is not unusual for her. CPAP while napping and at night (6) History of Clostridioides difficile colitis: Monitor for watery stools while on broad spectrum antibiotics. Low threshold to start vancomycin PO no diarrhea currently (7) Alzheimer's dementia: Continue venlafaxine due to risk of withdrawal restart memantine and donepezil. (8) History of pulmonary embolus (PE): resume Xarelto (9) Goals of care, counseling/discussion: Patient previously on hospice care. Discussed in great detail at bedside regarding CODE STATUS family wants her to be level 1, full code Discussed with Roxy from palliative care, appreciate her assistance (10) Hypokalemia: up to 4.1 stop K in fluids Admission and Anticipated Discharge Date Admission Date: April 27, 2020 Subjective patient sleepy today again daughter reports that she was awake more last night, able to eat better at dinner time she feels that the patient has her days and nights mixed up low grade temperature yesterday but no fever since 04/28 in the evening WBC up slightly at 15k repeat blood cultures with no growth discussed getting video swallow with daughter, unsure she would participate also, patient already has a difficult time getting enough fluids by mouth, thickened liquids would make this nearly impossible will hold off on video swallow for now discussed with daughter, may be ready for discharge by Saturday/Saturday on oral Levaquin Review of Systems Review of Systems: Unobtainable due to cognitive status Physical Exam Constitutional: WD/WN, vitals as above no acute distress Eyes: PERRL, conjunctivae normal, anicteric sclerae ENMT: external ear and nose normal, oropharynx normal Mouth: + dry oral mucous membranes Neck: trachea midline, no thyromegaly Respiratory: normal respiratory effort, lungs clear to auscultation Auscultation: + diminished lung sounds (bases) Cardiovascular: Rate/Rhythm: regular rhythm and + tachycardic Heart Sounds: normal S1 and normal S2; no murmur Vessels: no JVD Extremities: normal capillary refill (extremities warm); no edema Gastrointestinal (Abdomen): normal bowel sounds, soft, nontender, no hepatosplenomegaly Musculoskeletal: Head/Neck/Chest: normocephalic, head atraumatic and neck supple Extremities: extremities normal to inspection (moving all extremities) Skin: no rashes, warm and dry Neurologic: patellar DTR's 2+ bilat, sensation intact and PERRL, EOMI, accommodation nl, no face palsy, no dysarthria Psychiatric: Orientation: alert; + not oriented x 3 Lymphatic: no cervical or axillary lymphadenopathy Results & Data Results & Data ([facility]) Vital Signs (Past 12 Hours) Vital Signs Temp Pulse Resp BP Pulse Ox 05/01/20 15:34 36.7 C 102 H 18 134/79 96 05/01/20 07:13 36.4 C L 98 H 17 134/88 97 Laboratory Results Laboratory Results - last 24 hr 05/01/20 05/01/20 05:34 05:34 WBC 15.43 H RBC 3.40 L Hgb 9.2 L Hct 28.8 L MCV 84.7 MCH 27.1 MCHC 31.9 L RDW Std Deviation 54.5 H RDW Coeff of Fabiano 17.4 H Plt Count 283 MPV 10.0 Immature Gran % (Auto) 1.6 Neut % (Auto) 71.1 Lymph % (Auto) 15.3 Benzie % (Auto) 10.2 Eos % (Auto) 1.6 Baso % (Auto) 0.2 Neut # (Auto) 10.97 H Lymph # (Auto) 2.36 Benzie # (Auto) 1.58 H Eos # (Auto) 0.24 Baso # (Auto) 0.03 Immature Gran # (Auto) 0.25 H Sodium 138 Potassium 4.0 Chloride 112 H Carbon Dioxide 21 Anion Gap 5.0 BUN 10 Creatinine 0.82 Est Cr Clr Drug Dosing 52.3 Est GFR ( Amer) 82.3 Est GFR (Non-Af Amer) 71.0 BUN/Creatinine Ratio 12.3 Glucose 99 Calcium 9.0 Total Bilirubin 0.3 AST 35 ALT 47 Alkaline Phosphatase 221 H Total Protein 6.3 L Albumin 2.0 L Globulin 4.3 H Albumin/Globulin Ratio 0.5 L Medications Administered Current Inpatient Medications Acetaminophen (Tylenol) 1,000 mg PO Q6H PRN PRN Reason: Fever or headache Stop: 05/27/20 20:03 Last Admin: 04/28/20 20:06 Dose: 1,000 mg Documented by: Amlodipine Besylate (Norvasc) 2.5 mg PO [facility] Stop: 05/28/20 08:59 Last Admin: 05/01/20 08:43 Dose: 2.5 mg Documented by: Aspirin (Aspirin Chew) 81 mg PO [facility] Stop: 05/31/20 08:59 Last Admin: 05/01/20 08:42 Dose: 81 mg Documented by: Buspirone HCl (Buspar) 10 mg PO BID PRN PRN Reason: Anxiety Stop: 05/27/20 14:11 Donepezil HCl (Aricept) 10 mg PO [facility] Stop: 05/28/20 08:59 Last Admin: 05/01/20 08:42 Dose: 10 mg Documented by: Levofloxacin/Dextrose (Levaquin/D5w) 750 mg in 150 mls @ 100 mls/hr IV Q24H [facility]; Protocol Stop: 05/09/20 08:59 Last Infusion: 05/01/20 13:52 Dose: Infused Documented by: Levothyroxine Sodium (Synthroid) 75 mcg PO DAILYBB [facility] Stop: 05/28/20 06:29 Last Admin: 05/01/20 06:19 Dose: 75 mcg Documented by: Lisinopril (Zestril) 20 mg PO BID [facility] Stop: 05/28/20 08:59 Last Admin: 05/01/20 08:42 Dose: 20 mg Documented by: Melatonin (Melatonin) 3 mg PO HS [facility] Stop: 05/27/20 20:59 Last Admin: 04/30/20 21:12 Dose: 3 mg Documented by: Memantine (Namenda) 10 mg PO BID [facility] Stop: 05/28/20 08:59 Last Admin: 05/01/20 08:42 Dose: 10 mg Documented by: Venlafaxine HCl (Effexor Extended Release) 37.5 mg PO QPM [facility] Stop: 05/27/20 20:59 Last Admin: 04/30/20 21:12 Dose: 37.5 mg Documented by: Venlafaxine HCl (Effexor Extended Release) 75 mg PO QAM [facility] Stop: 05/28/20 08:59 Last Admin: 05/01/20 08:42 Dose: 75 mg Documented by: Vitamin D (Vitamin D3) 1,000 units PO DAILY [facility] Stop: 05/28/20 08:59 Last Admin: 05/01/20 08:42 Dose: 1,000 units Documented by: PG Care Time/CCT Total # of Minutes Spent Total Time Spent with Patient: Total time spent is greater than 50% in coordination of care (as documented) at patient's floor/unit and/or counseling patient: Coding Level of Care Code 75371 Subseq Hosp Care Lvl 3 Diagnoses Sepsis A41.9 Sepsis acute organ dysfunction status: unspecified Sepsis type: sepsis due to unspecified organism Pyelonephritis of right kidney N12 Pneumonia J18.9 Laterality: right Lung location: lower lobe of lung Pneumonia type: due to unspecified organism Pleural effusion on right J90 Apnea R06.81 History of Clostridioides difficile colitis Z86.19 Alzheimer's dementia G30.9; F02.80 History of pulmonary embolus (PE) Z86.711 Goals of care, counseling/discussion Z71.89 Hypokalemia E87.6 (1) Sepsis Sepsis acute organ dysfunction status: unspecified Sepsis type: sepsis due to unspecified organism Qualified Code(s): A41.9 - Sepsis, unspecified organism (2) Pneumonia Laterality: right Lung location: lower lobe of lung Pneumonia type: due to unspecified organism Qualified Code(s): J18.9 - Pneumonia, unspecified organism
[2020-05-01] MEDS: MELATONIN 3 MG TAB PO SCH (20:43)
[2020-05-01] MEDS: VENLAFAXINE HCL XR 37.5 MG CAPXR PO SCH (20:43)
[2020-05-02 06:04] LABS: Basophils # (auto) 0.04 K/uL (0-0.2); Basophils % (auto) 0.3 %; Eosinophils # (auto) 0.33 K/uL (0-0.5); Eosinophils % (auto) 2.1 %; Hemoglobin 9.1 g/dL (12.0-16.0); Immature Granulocytes # (auto) 0.58 K/uL (0.00-0.02); Immature Granulocytes % (auto) 3.7 %; Lymphocytes # (auto) 2.73 K/uL (1.2-3.4); Lymphocytes % (auto) 17.3 %; Mean Corpuscular Hemoglobin 26.8 pg (25-34); Mean Corpuscular Hgb Conc 31.4 g/dL (32-36); Mean Corpuscular Volume 85.3 fL (80-100); Mean Platelet Volume 9.9 fL (7.4-10.4); Monocytes # (auto) 1.52 K/uL (0.11-0.59); Monocytes % (auto) 9.6 %; Neutrophils # (auto) 10.56 K/uL (1.4-6.5); Platelet Count 352 K/uL (130-400); RDW Coefficient of Variation 17.6 % (11.5-14.5); White Blood Count 15.76 K/uL (4.8-10.8)
[2020-05-02] MEDS: LEVOTHYROXINE SODIUM 75 MCG TABLET PO SCH (06:19)
[2020-05-02 06:40] LABS: BUN Creatinine Ratio 16.6 (10-20); Calcium 8.7 mg/dl (8.5-10.1); Creatinine Clr Calc Pharmacy 57.2 ml/min; Est GFR (African American) 91.7; Est GFR (Non-African American) 79.1; Potassium 3.8 mmol/L (3.5-5.1)
[2020-05-02 06:44] LABS: Albumin Globulin Ratio 0.5 (0.9-2); Bilirubin,Total 0.2 mg/dl (0.2-1); Globulin 4.1 gm/dl (2.5-4.0); Total Protein 6.1 gm/dl (6.4-8.2)
[2020-05-02] MEDS: DONEPEZIL HCL 10 MG TAB PO SCH (08:30)
[2020-05-02] MEDS: CHOLECALCIFEROL 1,000 UNITS 25 MCG TAB PO SCH (08:30)
[2020-05-02] MEDS: lisinopriL 20 MG TAB PO SCH ×2 (08:30→21:26)
[2020-05-02] MEDS: ASPIRIN 81 MG CHEW PO SCH (08:31)
[2020-05-02] MEDS: AMLODIPINE BESYLATE 5 MG TAB PO SCH (08:31)
[2020-05-02] MEDS: MEMANTINE HCL 10 MG TAB PO SCH ×2 (08:31→21:27)
[2020-05-02] MEDS: VENLAFAXINE HCL XR 75 MG CAPXR PO SCH ×2 (08:32→09:10)
[2020-05-02] MEDS: LEVOFLOXACIN/D5W 750 MG/150 ML BAG IV SCH (09:09)
--- NOTE | 2020-05-02 20:19 | Hospitalist Progress Note ---
Date of Service May 02, 2020 Assessment & Plan (1) Septicemia: 2nd proteus. likely source - urinary tract/right-sided pyelonephritis. cont levaquin IV. will need 14 days of Rx from date of last negative cultures (04/29). clinically improving. cannot rule out RLL pneumonia also being the source but less likely. (2) Pyelonephritis of right kidney: noted on imaging. cont IV levaquin. plan 2-week course of IV/PO antibiotics. (3) Pneumonia: RLL. Cont IV levaquin. clinically stable with normal O2 sats in RA. (4) Alzheimer's dementia: advanced was on hospice at home, but son's wishes and goals for his mother are not consistent with those of hospice will reinvolve palliative care again to refine goals of care (5) History of pulmonary embolus (PE): resume xarelto 20mg/day (6) Hypertension: cont home meds (7) Hypothyroidism: no TSH since 2018 check such in am cont synthroid (8) DVT prophylaxis: resume xarelto (9) Goals of care, counseling/discussion: very lengthy discussion held at bedside today with son and daughter in law we discussed current care plan for septicemia, hospice vs routine care, palliative care, home situation, PT/OT, etc I suggested another visit and/or phone call with the palliative care team son's goals and desires for his mother are not c/w that of the hospice model son wanting more routine care, ongoing nutrition/hydration, rehospitalization for infections, etc cont PT/OT spent 30 min at bedside discussing above; total care time today 40 minutes Admission and Anticipated Discharge Date Admission Date: April 27, 2020 Subjective due to advanced dementia patient unable to provide any history or ROS largely nonverbal during lengthy bedside visit son and [id number] at bedside we had long conversation about pt's hospice status at home pt's son openly admits she is on hospice to ensure more services are available for his mother at home he and his are very interested in palliative care actually but son consistently states he would want re-hospitalization, ongoing hydration/nutrition, and treatment of infections we discussed recurrent UTIs and how does one avoid such we discussed anorexia and how it relates to advanced dementia dementia present minimum 5-6 years but perhaps closer to 8+ years son desiring PT/OT for mother Review of Systems Review of Systems: Unobtainable due to cognitive status Physical Exam Constitutional: + altered mental status; no acute distress ENMT: external ear and nose normal, oropharynx normal Respiratory: normal respiratory effort, lungs clear to auscultation Auscultation: + diminished lung sounds (Bases ) Cardiovascular: Rate/Rhythm: regular rhythm and + tachycardic Heart Sounds: normal S1 and normal S2; no murmur Vessels: posterior tibial pulses present and dorsalis pedis pulses present; no JVD Extremities: no edema Gastrointestinal (Abdomen): normal bowel sounds, soft, nontender, no hepatosplenomegaly Psychiatric: Orientation: alert; + not oriented x 3 Results & Data Results & Data ([facility]) Laboratory Results Laboratory Results - last 24 hr 05/02/20 05/02/20 05/02/20 05:41 05:41 05:41 WBC 15.76 H RBC 3.40 L Hgb 9.1 L Hct 29.0 L MCV 85.3 MCH 26.8 MCHC 31.4 L RDW Std Deviation 55.0 H RDW Coeff of Fabiano 17.6 H Plt Count 352 MPV 9.9 Immature Gran % (Auto) 3.7 Neut % (Auto) 67.0 Lymph % (Auto) 17.3 [place] % (Auto) 9.6 Eos % (Auto) 2.1 Baso % (Auto) 0.3 Neut # (Auto) 10.56 H Lymph # (Auto) 2.73 [place] # (Auto) 1.52 H Eos # (Auto) 0.33 Baso # (Auto) 0.04 Immature Gran # (Auto) 0.58 H Sodium 141 Potassium 3.8 Chloride 112 H Carbon Dioxide 24 Anion Gap 5.0 BUN 13 Creatinine 0.75 Est Cr Clr Drug Dosing 57.2 Est GFR ( Amer) 91.7 Est GFR (Non-Af Amer) 79.1 BUN/Creatinine Ratio 16.6 Glucose 104 H Calcium 8.7 Total Bilirubin 0.2 AST 44 H ALT 50 Alkaline Phosphatase 193 H Total Protein 6.1 L Albumin 2.0 L Globulin 4.1 H Albumin/Globulin Ratio 0.5 L Procalcitonin 0.34 repeat blood cx's from 04/29 negative to date PG Care Time/CCT Total # of Minutes Spent Total Time Spent with Patient: Total time spent is greater than 50% in coordination of care (as documented) at patient's floor/unit and/or counseling patient: Coding Level of Care Code 64235 Subseq Hosp Care Lvl 3 Diagnoses Septicemia A41.9 Pyelonephritis of right kidney N12 Pneumonia J18.9 Laterality: right Lung location: lower lobe of lung Pneumonia type: due to unspecified organism Alzheimer's dementia G30.9; F02.80 History of pulmonary embolus (PE) Z86.711 Hypertension I10 Hypertension type: essential hypertension Hypothyroidism E03.9 DVT prophylaxis Z29.9 Goals of care, counseling/discussion Z71.89 (1) Pneumonia Laterality: right Lung location: lower lobe of lung Pneumonia type: due to unspecified organism Qualified Code(s): J18.9 - Pneumonia, unspecified organism (2) Hypertension Hypertension type: essential hypertension Qualified Code(s): I10 - Essential (primary) hypertension
[2020-05-02] MEDS: LACTOBACILLUS ACIDOPHILUS (FLORANEX) TAB PO SCH (21:27)
[2020-05-02] MEDS: VENLAFAXINE HCL XR 37.5 MG CAPXR PO SCH (21:27)
[2020-05-02] MEDS: MELATONIN 3 MG TAB PO SCH (21:30)
[2020-05-03] MEDS: LEVOTHYROXINE SODIUM 75 MCG TABLET PO SCH ×2 (06:02→09:33)
[2020-05-03 06:30] LABS: BUN Creatinine Ratio 21.3 (10-20); Calcium 9.2 mg/dl (8.5-10.1); Creatinine Clr Calc Pharmacy 43.8 ml/min; Est GFR (African American) 66.3; Est GFR (Non-African American) 57.2
[2020-05-03 06:41] LABS: Thyroid Stimulating Hormone 12.8 uIu/ml (0.300-4.500)
[2020-05-03] MEDS: LACTOBACILLUS ACIDOPHILUS (FLORANEX) TAB PO SCH ×3 (08:36→17:56)
[2020-05-03] MEDS: DONEPEZIL HCL 10 MG TAB PO SCH (08:36)
[2020-05-03] MEDS: VENLAFAXINE HCL XR 75 MG CAPXR PO SCH (08:37)
[2020-05-03] MEDS: MEMANTINE HCL 10 MG TAB PO SCH ×2 (08:37→21:59)
[2020-05-03] MEDS: ASPIRIN 81 MG CHEW PO SCH (08:37)
[2020-05-03] MEDS: LEVOFLOXACIN/D5W 750 MG/150 ML BAG IV SCH (08:38)
[2020-05-03] MEDS: AMLODIPINE BESYLATE 5 MG TAB PO SCH (08:38)
[2020-05-03] MEDS: CHOLECALCIFEROL 1,000 UNITS 25 MCG TAB PO SCH (08:39)
[2020-05-03] MEDS: RIVAROXABAN 20 MG TAB PO SCH (08:39)
[2020-05-03] MEDS: lisinopriL 20 MG TAB PO SCH ×2 (08:39→22:17)
--- NOTE | 2020-05-03 21:26 | Hospitalist Progress Note ---
Date of Service May 03, 2020 Assessment & Plan (1) Septicemia: resolving. 2nd proteus. likely source - urinary tract/right-sided pyelonephritis. cont levaquin IV today then change to rocephin tomorrow - then PO abx at d/c. will need 14 days of Rx from date of last negative cultures (04/29). clinically improving. cannot rule out RLL pneumonia also being the source for septicemia. (2) Pyelonephritis of right kidney: noted on imaging. plan 2-week course of IV/PO antibiotics. (3) Pneumonia: RLL. Cont IV levaquin today then rocephin IV starting tomorrow. clinically stable with normal O2 sats in RA. (4) Alzheimer's dementia: advanced was on hospice at home, but son's wishes and goals for his mother are not consistent with those of hospice spoke with palliative care today about this issue (5) History of pulmonary embolus (PE): cont xarelto 20mg/day (6) Hypertension: cont home meds (7) Hypothyroidism: TSH high increase synthroid to 88mcg daily check FT4 am (8) DVT prophylaxis: xarelto (9) Goals of care, counseling/discussion: palliative care to see again tomorrow on Saturday need to figure out home with hospice vs home with HH son's wishes for his mother are NOT c/w hospice goals palliative care team aware Admission and Anticipated Discharge Date Admission Date: April 27, 2020 Subjective son at bedside today no major changes from yesterday eating fair son with multiple questions - needs to get hospital bed for house set up Review of Systems Review of Systems: Unobtainable due to cognitive status Physical Exam Constitutional: + altered mental status; no acute distress ENMT: external ear and nose normal, oropharynx normal Respiratory: normal respiratory effort, lungs clear to auscultation Auscultation: + diminished lung sounds (Bases ) Cardiovascular: Rate/Rhythm: regular rhythm and + tachycardic Heart Sounds: normal S1 and normal S2; no murmur Vessels: posterior tibial pulses present and dorsalis pedis pulses present; no JVD Extremities: no edema Gastrointestinal (Abdomen): normal bowel sounds, soft, nontender, no hepatosplenomegaly Psychiatric: Orientation: alert (stares; does not answer questions; nonverbal ); + not oriented x 3 Results & Data Results & Data ([facility]) Vital Signs (Past 12 Hours) Vital Signs Temp Pulse Resp BP Pulse Ox 05/03/20 15:38 36.3 C L 103 H 19 110/67 96 Laboratory Results Laboratory Results - last 24 hr 05/03/20 05:50 Sodium 140 Potassium 4.0 Chloride 111 H Carbon Dioxide 20 L Anion Gap 9.0 BUN 21 H D Creatinine 0.98 Est Cr Clr Drug Dosing 43.8 Est GFR ( Amer) 66.3 Est GFR (Non-Af Amer) 57.2 BUN/Creatinine Ratio 21.3 H Glucose 118 H Calcium 9.2 TSH 12.800 H PG Care Time/CCT Total # of Minutes Spent Total Time Spent with Patient: Total time spent is greater than 50% in coordination of care (as documented) at patient's floor/unit and/or counseling patient: Coding Level of Care Code 40982 Subseq Hosp Care Lvl 2 Diagnoses Septicemia A41.9 Pyelonephritis of right kidney N12 Pneumonia J18.9 Laterality: right Lung location: lower lobe of lung Pneumonia type: due to unspecified organism Alzheimer's dementia G30.9; F02.80 History of pulmonary embolus (PE) Z86.711 Hypertension I10 Hypertension type: essential hypertension Hypothyroidism E03.9 DVT prophylaxis Z29.9 Goals of care, counseling/discussion Z71.89 (1) Hypertension Hypertension type: essential hypertension Qualified Code(s): I10 - Essential (primary) hypertension (2) Pneumonia Laterality: right Lung location: lower lobe of lung Pneumonia type: due to unspecified organism Qualified Code(s): J18.9 - Pneumonia, unspecified organism
[2020-05-03] MEDS: VENLAFAXINE HCL XR 37.5 MG CAPXR PO SCH (21:59)
[2020-05-03] MEDS: MELATONIN 3 MG TAB PO SCH (22:03)
[2020-05-04] MEDS: LEVOTHYROXINE SODIUM 75 MCG TABLET PO SCH (06:36)
[2020-05-04 08:02] LABS: Hematocrit (blood only) 29.5 % (37-47); Hemoglobin 9.5 g/dL (12.0-16.0); Mean Corpuscular Hemoglobin 27.5 pg (25-34); Mean Corpuscular Hgb Conc 32.2 g/dL (32-36); Mean Corpuscular Volume 85.5 fL (80-100); Mean Platelet Volume 9.9 fL (7.4-10.4); Platelet Count 455 K/uL (130-400); RDW Standard Deviation 56.5 fL (36.4-46.3); Red Blood Count 3.45 M/uL (4.2-5.4); White Blood Count 16.96 K/uL (4.8-10.8)
[2020-05-04 08:20] LABS: BUN Creatinine Ratio 23.9 (10-20); Calcium 8.9 mg/dl (8.5-10.1); Creatinine Clr Calc Pharmacy 47.7 ml/min; Est GFR (African American) 73.5; Est GFR (Non-African American) 63.4; Potassium 3.9 mmol/L (3.5-5.1)
[2020-05-04 08:24] LABS: T4 Free Thyroxine 0.91 ng/dl (0.8-1.6)
[2020-05-04] MEDS: lisinopriL 20 MG TAB PO SCH ×2 (08:44→21:53)
[2020-05-04] MEDS: DONEPEZIL HCL 10 MG TAB PO SCH (08:45)
[2020-05-04] MEDS: RIVAROXABAN 20 MG TAB PO SCH (08:45)
[2020-05-04] MEDS: VENLAFAXINE HCL XR 75 MG CAPXR PO SCH (08:45)
[2020-05-04] MEDS: MEMANTINE HCL 10 MG TAB PO SCH ×2 (08:45→21:52)
[2020-05-04] MEDS: AMLODIPINE BESYLATE 5 MG TAB PO SCH (08:46)
[2020-05-04] MEDS: ASPIRIN 81 MG CHEW PO SCH (08:46)
[2020-05-04] MEDS: CHOLECALCIFEROL 1,000 UNITS 25 MCG TAB PO SCH (08:47)
[2020-05-04] MEDS: THIAMINE HCL 100 MG TAB PO SCH ×2 (08:47→21:51)
[2020-05-04] MEDS: LACTOBACILLUS ACIDOPHILUS (FLORANEX) TAB PO SCH ×3 (08:48→18:09)
[2020-05-04] MEDS ORDERED: cefTRIAXone SODIUM 2,000 MG in DEXTROSE 5% 50 ML IV SCH (09:00)
[2020-05-04] MEDS ORDERED: LEVOTHYROXINE SODIUM 25 MCG TABLET PO SCH (09:20)
--- NOTE | 2020-05-04 10:14 | Palliative Care Progress Note ---
Date of Service May 04, 2020 Assessment & Plan (1) Goals of care, counseling/discussion: This is a74 year old female who presented to the [facility] via EMS with abdominal pain, fever, vomiting and concentrated urine that has been occurring over the past 4 days. Additional PMH includes: end-stage dementia, DVT, HTN, and PE. This patient is a patient under [facility] at home hospice. Upon evaluation in the ED, she was diagnosed with urosepsis and PNA. She was started on abx. A pleural effusion was also noted on CXR. The patients son, El and daughter, Chantel are present at the bedside. Currently, the patient is hemodynamically stable. She is receiving IVF at 100mL/hour. That being said, she is diaphoretic. Palliative Care was consulted to discuss goals of care in this unfortunate end-stage dementia patient on hospice care. -Per discussion with the patients hospitalist, he is anticipating patient to be ready for discharge today pending services in place for the patient. -It appears from numerous conversations with the family, specifically, the patients son, he would like to continue to bring the patient to the hospital if she declines, continue more aggressive treatment. -Previously the patient was enrolled through [facility]; however, the current goals of care indicate that the son would still like more aggressive treatment, despite her overall poor prognosis and continued cognitive and functional decline. -I did reach out to El, the patients son, who was very receptive of the call. He did express again that he did not feel ready for Hospice, but was interested in Palliative Care. When he enrolled his Mom in Hospice there was not an in-home palliative care program available, and now there is, through [facility]. He agreed this to be linear with his goals and would be appropriate with an eventual transition to hospice, although she definitely qualifies for Hospice. -Patient did reiterate that he would like her to remain a Full Code at this time. -He did say they do not have a hospital bed and aren't sure they would like one. I expressed that case management would discuss covered entities through the in- home Palliative Care program. -He said that PT/OT had a difficult time working with her and he worries he would not be able to transfer her in and out of the car upon discharge. I did express the option for a litter van, which I expressed case management would discuss further regarding timing, cost, etc. -Case management and palliative care will follow to continue to assist with decision making. (2) Septicemia: (3) Alzheimer's dementia: Subjective Patient confused, laying in her bed, in no apparent distress No family at the bedside. Review of Systems Review of Systems: Unobtainable due to cognitive status Physical Exam Constitutional: + ill appearing, + frail appearing and + diaphoretic Respiratory: normal respiratory effort, lungs clear to auscultation Auscultation: + diminished lung sounds and + rhonchi (left) Cardiovascular: RRR, no murmur, no edema Rate/Rhythm: + tachycardic Gastrointestinal (Abdomen): normal bowel sounds, soft, nontender, no hepatosplenomegaly Psychiatric: Orientation: alert and cooperative; + not oriented to person, + not oriented to place and + not oriented to time Results & Data Vital Signs (Past 12 Hours) Vital Signs Temp Pulse Pulse Resp BP Pulse Ox 05/04/20 07:44 36.7 C 106 H 18 152/90 H 95 05/04/20 03:35 93 H 16 94 05/04/20 00:10 37.2 C 107 H 16 108/73 94 05/03/20 22:25 120 H 16 95 PG Care Time/CCT Total # of Minutes Spent Total Time Spent with Patient: Total time spent is greater than 50% in coordination of care (as documented) at patient's floor/unit and/or counseling patient: 35 Coding Level of Care Code 85188 Subseq Hosp Care Lvl 3 Diagnoses Goals of care, counseling/discussion Z71.89 Septicemia A41.9 Alzheimer's dementia G30.9; F02.80 Time Spent (min) 35 Time Spent Midlevel Total time spent 35 minutes with > 50% of that time spent assessing the patient, discussing goals of care with the patients son and IDT.
--- NOTE | 2020-05-04 21:18 | Hospitalist Progress Note ---
Date of Service May 04, 2020 Assessment & Plan (1) Septicemia: resolved. 2nd proteus. likely source - urinary tract/right-sided pyelonephritis. change IV rocephin to PO cefdinir in am tomorrow. will need 14 days of Rx from date of last negative cultures (04/29). today is day #6 of abx. cannot rule out RLL pneumonia also being the source for septicemia. (2) Pyelonephritis of right kidney: noted on imaging. plan 2-week course of IV/PO antibiotics. day #6 abx. (3) Pneumonia: RLL. Cont IV rocephin today; over to PO cefdinir tomorrow. clinically stable with normal O2 sats in RA. (4) Alzheimer's dementia: advanced was on hospice at home, but son's wishes and goals for his mother are not consistent with those of hospice palliative care heavily involved in this complex case -- appreciate their assistance appreciate SW assistance (5) History of pulmonary embolus (PE): cont xarelto 20mg/day (6) Hypertension: cont home meds (7) Hypothyroidism: TSH high this admission increased synthroid to 88mcg daily (8) DVT prophylaxis: xarelto (9) Goals of care, counseling/discussion: palliative care consult and assistance appreciated social work assistance appreciated likely changing agencies to [facility] and Hospice at d/c (previously with [facility]) home with palliative care vs home with hospice daughter extensively updated at bedside today Admission and Anticipated Discharge Date Admission Date: April 27, 2020 Subjective during lunch today patient had choking spell when daughter was attempting to feed her speech reconsulted - adjustments to diet made no new events otherwise patient at baseline daughter at bedside -- long talk with her about her mother's status, etc Review of Systems Review of Systems: Unobtainable due to cognitive status Physical Exam Constitutional: + altered mental status; no acute distress ENMT: external ear and nose normal, oropharynx normal Respiratory: normal respiratory effort, lungs clear to auscultation Auscultation: + diminished lung sounds (Bases ) Cardiovascular: Rate/Rhythm: regular rhythm and + tachycardic Heart Sounds: normal S1 and normal S2; no murmur Vessels: posterior tibial pulses present and dorsalis pedis pulses present; no JVD Extremities: no edema Gastrointestinal (Abdomen): normal bowel sounds, soft, nontender, no hepatosplenomegaly Psychiatric: Orientation: alert (stares; does not answer questions; nonverbal; no change from prior exams); + not oriented x 3 Results & Data Results & Data ([facility]) Vital Signs (Past 12 Hours) Vital Signs Temp Pulse Resp BP Pulse Ox 05/04/20 15:38 36.7 C 94 H 17 114/72 96 Laboratory Results Laboratory Results - last 24 hr 05/04/20 05/04/20 07:24 07:24 WBC 16.96 H RBC 3.45 L Hgb 9.5 L Hct 29.5 L MCV 85.5 MCH 27.5 MCHC 32.2 RDW Std Deviation 56.5 H RDW Coeff of Fabiano 18.0 H Plt Count 455 H MPV 9.9 Sodium 143 Potassium 3.9 Chloride 114 H Carbon Dioxide 22 Anion Gap 7.0 BUN 21 H Creatinine 0.90 Est Cr Clr Drug Dosing 47.7 Est GFR ( Amer) 73.5 Est GFR (Non-Af Amer) 63.4 BUN/Creatinine Ratio 23.9 H Glucose 102 H Calcium 8.9 Free T4 0.91 PG Care Time/CCT Total # of Minutes Spent Total Time Spent with Patient: Total time spent is greater than 50% in coordination of care (as documented) at patient's floor/unit and/or counseling patient: Coding Level of Care Code 99335 Subseq Hosp Care Lvl 2 Diagnoses Septicemia A41.9 Pyelonephritis of right kidney N12 Pneumonia J18.9 Laterality: right Lung location: lower lobe of lung Pneumonia type: due to unspecified organism Alzheimer's dementia G30.9; F02.80 History of pulmonary embolus (PE) Z86.711 Hypertension I10 Hypertension type: essential hypertension Hypothyroidism E03.9 DVT prophylaxis Z29.9 Goals of care, counseling/discussion Z71.89 (1) Hypertension Hypertension type: essential hypertension Qualified Code(s): I10 - Essential (primary) hypertension (2) Pneumonia Laterality: right Lung location: lower lobe of lung Pneumonia type: due to unspecified organism Qualified Code(s): J18.9 - Pneumonia, unspecified organism
[2020-05-04] MEDS: VENLAFAXINE HCL XR 37.5 MG CAPXR PO SCH (21:51)
[2020-05-04] MEDS: MELATONIN 3 MG TAB PO SCH (21:59)
[2020-05-05] MEDS: LEVOTHYROXINE SODIUM 88 MCG TABLET PO SCH (05:16)
--- NOTE | 2020-05-05 08:13 | Electrocardiogram Report ---
Test Reason : Blood Pressure : / mmHG Vent. Rate : 134 BPM Atrial Rate : 134 BPM P-R Int : 156 ms QRS Dur : 072 ms QT Int : 278 ms P-R-T Axes : 032 028 038 degrees QTc Int : 415 ms Sinus tachycardia Otherwise normal ECG When compared with ECG of 27-APR-2020 20:54, No significant change was found Confirmed by López Hamm ([id number]) on 05/05/2020 8:13:32 AM Referred By: REFERRED SELF Confirmed By:López Hamm
[2020-05-05] MEDS: RIVAROXABAN 20 MG TAB PO SCH (08:32)
[2020-05-05] MEDS: CEFDINIR 300 MG CAP PO SCH ×2 (08:32→20:54)
[2020-05-05] MEDS: AMLODIPINE BESYLATE 5 MG TAB PO SCH (08:32)
[2020-05-05] MEDS: lisinopriL 20 MG TAB PO SCH ×2 (08:33→20:54)
[2020-05-05] MEDS: DONEPEZIL HCL 10 MG TAB PO SCH (08:33)
[2020-05-05] MEDS: VENLAFAXINE HCL XR 75 MG CAPXR PO SCH (08:34)
[2020-05-05] MEDS: ASPIRIN 81 MG CHEW PO SCH (08:34)
[2020-05-05] MEDS: CHOLECALCIFEROL 1,000 UNITS 25 MCG TAB PO SCH (08:34)
[2020-05-05] MEDS: THIAMINE HCL 100 MG TAB PO SCH ×2 (08:35→20:54)
[2020-05-05] MEDS: MEMANTINE HCL 10 MG TAB PO SCH ×2 (08:35→20:54)
[2020-05-05] MEDS: LACTOBACILLUS ACIDOPHILUS (FLORANEX) TAB PO SCH ×3 (08:35→16:55)
--- NOTE | 2020-05-05 20:36 | Hospitalist Progress Note ---
Date of Service May 05, 2020 Assessment & Plan (1) Septicemia: resolved. 2nd proteus. likely source - urinary tract/right-sided pyelonephritis. cont PO cefdinir. will need 14 days of Rx from date of last negative cultures (04/29). today is day #7 of abx. cannot rule out RLL pneumonia also being the source for septicemia. (2) Pyelonephritis of right kidney: noted on imaging. plan 2-week course of IV/PO antibiotics. day #7 abx. changed to PO cefdinir today. (3) Pneumonia: RLL. Cont abx; changed to PO cefdinir today. clinically stable. (4) Alzheimer's dementia: advanced bed-bound, incontinent of urine/stool, largely nonverbal, frequent naps, etc returning home with [facility] H[facility] (5) History of pulmonary embolus (PE): cont xarelto 20mg/day (6) Hypertension: cont home meds (7) Hypothyroidism: TSH high this admission increased synthroid to 88mcg daily (8) DVT prophylaxis: xarelto (9) Goals of care, counseling/discussion: palliative care consult and assistance appreciated social work assistance appreciated changing to [facility] Home Hospice at discharge daughter updated at bedside today home tomorrow w/ hospice repeat CMP am Admission and Anticipated Discharge Date Admission Date: April 27, 2020 Subjective no events overnight daughter at bedside patient has been awake for much of the day flowsheets indicate she ate all of her breakfast Review of Systems Review of Systems: Unobtainable due to cognitive status Physical Exam Constitutional: + altered mental status; no acute distress ENMT: external ear and nose normal, oropharynx normal Respiratory: normal respiratory effort, lungs clear to auscultation Auscultation: + diminished lung sounds (Bases ) Cardiovascular: Rate/Rhythm: regular rhythm and + tachycardic Heart Sounds: normal S1 and normal S2; no murmur Vessels: posterior tibial pulses present and dorsalis pedis pulses present; no JVD Extremities: no edema Gastrointestinal (Abdomen): normal bowel sounds, soft, nontender, no hepatosplenomegaly Psychiatric: awake, looks at you, occasional smile; otherwise mainly nonverbal Results & Data Results & Data ([facility]) Vital Signs (Past 12 Hours) Vital Signs Temp Pulse Resp BP Pulse Ox 05/05/20 15:44 36.6 C 98 H 16 119/71 95 PG Care Time/CCT Total # of Minutes Spent Total Time Spent with Patient: Total time spent is greater than 50% in coordination of care (as documented) at patient's floor/unit and/or counseling patient: Coding Level of Care Code 36025 Subseq Hosp Care Lvl 2 Diagnoses Septicemia A41.9 Pyelonephritis of right kidney N12 Pneumonia J18.9 Laterality: right Lung location: lower lobe of lung Pneumonia type: due to unspecified organism Alzheimer's dementia G30.9; F02.80 History of pulmonary embolus (PE) Z86.711 Hypertension I10 Hypertension type: essential hypertension Hypothyroidism E03.9 DVT prophylaxis Z29.9 Goals of care, counseling/discussion Z71.89 (1) Pneumonia Laterality: right Lung location: lower lobe of lung Pneumonia type: due to unspecified organism Qualified Code(s): J18.9 - Pneumonia, unspecified organism (2) Hypertension Hypertension type: essential hypertension Qualified Code(s): I10 - Essential (primary) hypertension
[2020-05-05] MEDS: VENLAFAXINE HCL XR 37.5 MG CAPXR PO SCH (20:54)
[2020-05-05] MEDS: MELATONIN 3 MG TAB PO SCH (20:59)
[2020-05-06] MEDS: LEVOTHYROXINE SODIUM 88 MCG TABLET PO SCH (06:13)
[2020-05-06 07:40] LABS: Albumin Level 2.2 gm/dl (3.4-5.0); BUN Creatinine Ratio 19.9 (10-20); Calcium 8.9 mg/dl (8.5-10.1); Creatinine Clr Calc Pharmacy 48.2 ml/min; Est GFR (African American) 74.5; Est GFR (Non-African American) 64.3; Potassium 4.1 mmol/L (3.5-5.1)
[2020-05-06 07:42] LABS: Albumin Globulin Ratio 0.5 (0.9-2); Bilirubin,Total 0.2 mg/dl (0.2-1); Globulin 4.5 gm/dl (2.5-4.0); Total Protein 6.7 gm/dl (6.4-8.2)
[2020-05-06] MEDS: LACTOBACILLUS ACIDOPHILUS (FLORANEX) TAB PO SCH ×2 (08:33→12:37)
[2020-05-06] MEDS: RIVAROXABAN 20 MG TAB PO SCH (08:33)
[2020-05-06] MEDS: CEFDINIR 300 MG CAP PO SCH (08:33)
[2020-05-06] MEDS: lisinopriL 20 MG TAB PO SCH (08:33)
[2020-05-06] MEDS: DONEPEZIL HCL 10 MG TAB PO SCH (08:33)
[2020-05-06] MEDS: AMLODIPINE BESYLATE 5 MG TAB PO SCH (08:33)
[2020-05-06] MEDS: THIAMINE HCL 100 MG TAB PO SCH (08:33)
[2020-05-06] MEDS: VENLAFAXINE HCL XR 75 MG CAPXR PO SCH (08:33)
[2020-05-06] MEDS: CHOLECALCIFEROL 1,000 UNITS 25 MCG TAB PO SCH (08:33)
[2020-05-06] MEDS: MEMANTINE HCL 10 MG TAB PO SCH (08:33)
[2020-05-06] MEDS: ASPIRIN 81 MG CHEW PO SCH (08:33)
--- NOTE | 2020-05-06 10:55 | Discharge Summary ---
Date of Service date of admission - April 27, 2020 date of discharge - May 06, 2020 Admission HPI Per Admitting Provider Sil Ibarra is a 74-year-old female with Alzheimer's dementia who comes to the emergency room via EMS with a 4-day history of abdominal pain, concentrated urine, fever, vomiting. She is on hospice care however the son notes this was done mainly to increase services at home. At this time he wishes everything possibly done. Unable to get any history from the patient is currently not alert and having frequent apneic episodes. In the ER she was noted to be guarding her abdomen and subsequent CT abdomen pelvis showed right perinephric stranding with urothelial thickening involving the right renal collecting system as well as the right ureter consistent with right-sided pyelonephritis/pyelitis. Principal Diagnosis septicemia 2nd to UTI and right-sided pyelonephritis Discharge Exam Constitutional + altered mental status; no acute distress ENMT external ear and nose normal, oropharynx normal Respiratory normal respiratory effort, lungs clear to auscultation Auscultation: + diminished lung sounds (Bases ) Cardiovascular Rate/Rhythm: regular rhythm and + tachycardic Heart Sounds: normal S1 and normal S2; no murmur Vessels: posterior tibial pulses present and dorsalis pedis pulses present; no JVD Extremities: no edema Gastrointestinal (Abdomen) normal bowel sounds, soft, nontender, no hepatosplenomegaly Psychiatric Orientation: alert (stares; does not answer questions; nonverbal; no change from prior exams); + not oriented x 3 Discharge Data Allergies Allergy/AdvReac Type Severity Reaction Status Date / Time No Known Allergies Allergy Verified 04/27/20 10:18 Consultations 1. palliative care 2. speech therapy 3. pulmonology Ordered Studies 04/27/20 09:18 CT abd pelvis IV contrast IMPRESSION: 1. Subtle heterogeneous enhancement within the right kidney with right perinephric fat stranding/edema. There is also urothelial thickening involving the right renal collecting system/pelvis as well as the right ureter. Therefore, this likely represents a right-sided pyelonephritis/pyelitis. Recommend correlation with urinalysis. 2. Mild bladder wall thickening which could be due to underdistention or a cystitis. 3. Dense consolidation within the base of the right lower lobe. This favors a pneumonia. Atelectasis could also have a similar appearance. 4. Trace right pleural effusion. 5. Cholelithiasis. 6. Colonic diverticulosis. No evidence for diverticulitis. Hospital Course (1) Septicemia: Admission blood cultures with proteus. source - urinary tract/right-sided pyelonephritis. Also with radiographic evidence of RLL pneumonia -- can't rule out a pulmonary source for the septicemia but less likely. Initially was on IV antibiotic therapy, then was transitioned to PO cefdinir. Needs 14 days of Rx from date of last negative cultures (04/29). Thus, at discharge -- will complete a 7-day course of PO cefdinir 300mg BID. (2) Pyelonephritis of right kidney: noted on imaging. plan 2-week course of IV/PO antibiotics. no flank pain in the days leading up to discharge. 7-day course of PO cefdinir at discharge. (3) UTI (urinary tract infection): 04/27/20 urine culture did not grow a pathogen but given the CT findings of right-sided pyelonephritis and blood cultures with proteus I would assume the UTI was due to proteus. See above in "septicemia." (4) Pneumonia: RLL. Community-acquired vs aspiration. Received IV antibiotic therapy including atypical coverage, then was transitioned to PO cefdinir at discharge. Clinically stable with no oxygen requirement the entire stay. (5) Alzheimer's dementia: advanced bed-bound, incontinent of urine/stool, largely nonverbal, frequent naps, dysphagia, etc. returning home with [facility] (6) History of pulmonary embolus (PE): cont xarelto 20mg/day (7) Hypertension: cont home meds (8) Hypothyroidism: TSH high this admission at 12 increased synthroid to 88mcg daily from 75mcg daily new prescription given at discharge if patient remains enrolled in hospice would defer on repeat TSH testing (9) Chronic kidney disease, stage 3a: baseline CrCl 40s Cr stable throughout the stay (10) Goals of care, counseling/discussion: palliative care was consulted in light of her advanced dementia. she had been on hospice with [facility] prior to the hospital stay but her son with whom she lives really was wanting more routine care including IV/PO antibiotics, rehospitalization for illness, PT/OT, etc. after multiple palliative care discussions with the pt's son & daughter the family opted for home with hospice utilizing [facility]. will defer to PCP about stopping medications such as dementia medications, xarelto, etc. Total Time Total Time Spent Total Time Spent (In Minutes): 45 Total Time Includes: Examination of the Patient, Discharge Planning and Communication With Other Providers Discharge Plan Discharge Items Patient Disposition: Hospice - Home Reason For Visit: SEPSIS, UTI, Kidney Infection Discharge Diagnosis: 1. urinary tract infection 2. kidney infection 3. possible pneumonia 4. bloodstream infection due to #1 and #2 - resolved 5. advanced dementia Activity: Resume your previous activity Non-emergency contact: Primary Care Provider Call non-emergency contact if: you have any medication questions, your pain is not controlled, your pain is unusual for you and your pain is concerning for you Follow-up/Referrals: Naomi Patterson CRNP [Primary Care Provider] - Diet: Regular Diet Texture: Easy to Chew Addtl Attending Provider Instructions: Mrs Ibarra was treated for the problems listed above in "discharge diagnoses." The bloodstream infection, possible pneumonia, UTI, and kidney infection improved with IV and oral antibiotics. Labs and vitals were acceptable in the days leading up to discharge. Mrs Ibarra has advanced dementia which is affecting her speech, swallowing, walking, and overall quality of life. Social workers were heavily involved in assisting with discharge planning. Plan is to return home with hospice services through [facility]. Recommendations - 1. antibiotic course - cefdinir 300mg twice daily for 7 more days, first dose tonight. 2. probiotics to prevent development of c diff; take for 10 days starting today. 3. increased dose of thyroid medication - now 88mcg every day. New prescription sent to [facility]. May discard the old 75mcg bottle at home. 4. thiamine supplementation for 1 month. Prescription sent to [facility]. 5. liquids as tolerated; would avoid straws as this may increase chances of choking. 6. upright for all meals; alternative small sips of liquids with small bites of food. 7. provide easy to chew, minced & moist solids as tolerated. Avoid dry foods, hard foods (bagels, raw veggies, etc), etc. Mrs Ibarra is on several medications that may be able to be stopped soon such as cholesterol medication, aspirin, etc. Please speak with [facility] about potentially stopping these medications soon as they are likely not providing large benefit or improving quality of life. Follow-up - none needed with PCP; simply follow-up with [facility] for all needs and concerns; always call [facility] agency first for all questions & concerns Best wishes, it was my pleasure caring for you - -Dr Villarreal Pending Studies at Discharge: No Stand-Alone Forms: My [facility] Medications and DC Order Prescriptions: New thiamine HCl (vitamin B1) [Vitamin B-1] 100 mg Tablet 200 mg PO BID 30 Days Qty: 120 RF: 0 levothyroxine [Synthroid] 88 mcg Tablet 88 mcg PO DAILYBB Qty: 30 RF: 5 cefdinir 300 mg Capsule 300 mg PO BID 7 Days Qty: 14 RF: 0 Saccharomyces boulardii 250 mg capsule 250 mg PO DAILY 10 Days Qty: 10 RF: 0 Continued venlafaxine 37.5 mg capsule,extended release 24hr 37.5 mg PO QPM RF: 0 venlafaxine 75 mg capsule,extended release 24hr 75 mg PO QAM RF: 0 donepezil 10 mg tablet 10 mg PO QAM RF: 0 lisinopril 20 mg tablet 20 mg PO BID RF: 0 aspirin 81 mg Tablet,Delayed Release (Dr/Ec) 81 mg PO QAM RF: 0 simvastatin 20 mg tablet 20 mg PO QPM RF: 0 buspirone 10 mg tablet 10 mg PO BID PRN (Reason: Anxiety) RF: 0 cholecalciferol (vitamin D3) [Vitamin D3] 1,000 unit Capsule 1,000 unit PO DAILY RF: 0 melatonin 1 mg Tablet 2 mg PO HS RF: 0 memantine [Namenda] 10 mg Tablet 10 mg PO BID RF: 0 Xarelto 20 mg Tablet 20 mg PO QAM RF: 0 amlodipine 2.5 mg tablet 2.5 mg PO DAILY RF: 0 Discontinued levothyroxine 75 mcg tablet 75 mcg PO QAM RF: 0 Discharge Orders: Discharge Order (Routine); Ordered 05/06/20 Ordered By: Felipe Villarreal Admission Data Admit Date/Time: 04/27/20 12:28 Attending Provider: Felipe Villarreal Admit Provider: Felipe Pruett Primary Care Provider: Naomi Patterson Other Providers: Felipe Pruett ; Umm Jeronimo ; Marco Skinner ; [facility] Other Interventions: Discharge Summary Assessment (RN) Last Done: 05/06/20 10:59 DC Date/Time DO NOT enter until pt leaves facility: 05/06/20 15:08 Coding Level of Care Code D/C Day Management >30 mins Diagnoses Septicemia A41.9 Pyelonephritis of right kidney N12 UTI (urinary tract infection) N39.0 Pneumonia J18.9 Laterality: right Lung location: lower lobe of lung Pneumonia type: due to unspecified organism Alzheimer's dementia G30.9; F02.80 History of pulmonary embolus (PE) Z86.711 Hypertension I10 Hypertension type: essential hypertension Hypothyroidism E03.9 Chronic kidney disease, stage 3a N18.3 Goals of care, counseling/discussion Z71.89
== END 2020-05-06 15:08 | disposition hospice, home (50) | DRG 871 ==
LOC: ED 08:40 → SUATTDRO 12:28 → 2S 12:28 → 2E 20:49 → 3E 04-29 10:29

== ENCOUNTER 2021-04-04 14:58 | Observation (INO) ==
--- NOTE | 2021-04-04 15:29 | Emergency Department Note ---
Impression & Plan Vomiting, Diverticulitis ED Provider Note NAME: WAYNE WILKINS AGE: 75 SEX: F : 1945 ARRIVES VIA: Walk-In INFORMANT: Patient, ED PROVIDER(S): Kb Barber MD Chief Complaint: Vomiting HPI: Patient does present with son at bedside who is the POA and primary caregiver as the patient does have a known history of dementia. The son states that the patient has had some intermittent constipation with decreased stools and they have been trying to improve the symptoms. There was concern that the patient might have a UTI and thus was treated with a 7-day course for the patient describes as likely nitrofurantoin. This seemed to improve the low- grade temperatures which were in the mid to high 99s. The patient reported he was at the dinner table this afternoon and had an episode of vomiting. The son does relate that the patient has had a proclivity of UTI whenever this is occurred. No recent falls or trauma. Patient has not had any reported chills or cough. Patient is vaccinated for Covid. The son reports that the patient has had approximately 6 episodes of nonbloody emesis including the initial episode. She has not taking anything for this. ROS: See HPI for pertinent positives and negatives. A total of 10 systems were reviewed and otherwise negative. Past medical history: See below Surgical history: See below Social history: See below Physical Exam: GENERAL: No apparent distress, wearing a mask. EYE EXAM: Normal conjunctiva. PERRL, no anisocoria and EOM's grossly intact w/o pain. NECK: Supple, no nuchal rigidity, no adenopathy, non-tender. No signs of meningismus. LUNGS: Clear to auscultation. Normal chest wall mechanics. HEART: NSR, no MRG. ABDOMEN: Abdomen soft, non-tender, normo-active bowel sounds, no masses, no rebound or guarding. BACK: No CVA TTP. SKIN: No rashes and no bruising. UPPER EXTREMITIES: Upper extremities are grossly normal. LOWER EXTREMITIES: Grossly normal, no edema. NEURO EXAM: A&O x3, cranial nerves II-XII grossly intact, normal speech, moves all 4 extremities on command w/o issue. Differential diagnoses: Gastroenteritis, food borne illness, infections, appendicitis, diverticulitis, inflammatory bowel disease, obstruction, GI bleed, biliary pathology, volvulus, as well as other pathologies. Course: Patient was seen and evaluated the bedside. Full history physical exam was performed. Imaging Studies: See below Cardiac monitoring: An order was placed for continuous cardiac monitoring. The monitor shows a rate of 103 with sinus tach rhythm. MDM: Patient was seen due to concern for vomiting. Blood work is obtained along with CT abdomen pelvis and the patient was treated symptomatically with IV fluids and Zofran. White count 12 normal H&H and platelet count. Kidney function unremarkable. CT does show concern for diverticulitis but without perforation or abscess. Zosyn ordered. I did speak with the on-call hospitalist Dr. Guzman and the patient was admitted to the medicine service. Past Med/Surg History Medical History (Updated 04/04/21 @ 19:53 by Kb Barber MD) Alzheimer's dementia C. difficile colitis Dementia Dementia Diverticulitis DVT (deep venous thrombosis) Fatigue Hypertension Mild sleep apnea Nocturnal hypoxia Pulmonary embolism Seizure-like activity Snoring Thyroid disease Witnessed episode of apnea Surgical History Hx of hysterectomy Family History Mother No pertinent family history Father No pertinent family history Family/Other No pertinent family history Other Family history of heart disease Family history of stroke Social History (Updated 03/28/21 @ 14:36 by Shiloh Patiño RN) Smoking Status: Never smoker Second Hand Exposure: No; Hx Alcohol Use: No Hx Substance Use: No Preferred Language: Uzbek Communication Ability: Impaired Communication Tools: Facial Expression and Physical Gestures City Controller Required: Yes and No Beliefs That Will Affect Care: None Current Living Situation: Other Current Living Situation Comment: lives at home with son current occupational status: retired other: Minimally verbal, occasional delusions, ambulatory dysfunction d/t dementia Feels Safe at Home: Yes Diet Comment: high fiber caffeine: No Gender Identity: Female Assistive Devices: CPAP, Walker and Wheelchair Allergies Allergies Allergy/AdvReac Type Severity Reaction Status Date / Time No Known Allergies Allergy Verified 04/04/21 16:25 Home Meds Home Medications Medication Instructions Recorded Confirmed aspirin 81 mg PO QAM 08/27/18 04/04/21 cholecalciferol (vitamin D3) 1,000 unit PO DAILY 08/27/18 04/04/21 [Vitamin D3] donepezil 10 mg PO QAM 08/27/18 04/04/21 lisinopril 20 mg PO BID 08/27/18 04/04/21 melatonin 2 mg PO HS 08/27/18 04/04/21 memantine [Namenda] 10 mg PO BID 08/27/18 04/04/21 simvastatin 20 mg PO QPM 08/27/18 04/04/21 venlafaxine 37.5 mg PO QPM 08/27/18 04/04/21 venlafaxine 75 mg PO QAM 08/27/18 04/04/21 amlodipine 2.5 mg PO DAILY 04/27/20 04/04/21 famotidine 20 mg tablet 20 mg PO BID 03/02/21 04/04/21 nystatin 100,000 unit/gram topical 1 applic TOPICAL TID 03/28/21 04/04/21 cream polyethylene glycol 3350 17 gram 17 g PO BID PRN 03/28/21 04/04/21 oral powder packet sennosides 8.6 mg tablet 17.2 mg PO DAILY PRN tab 03/28/21 04/04/21 wheat dextrin 3 gram/3.5 gram oral 0.5 packet PO DAILY ea 03/28/21 04/04/21 powder packet Previous Rx's Medication Instructions Recorded levothyroxine [Synthroid] 88 mcg PO DAILYBB #30 tab 05/06/20 levetiracetam 250 mg tablet 250 mg PO BID #60 tab 03/02/21 Results & Data (ED) Vital Signs Vital Signs - 24 hr 04/04/21 15:03 04/04/21 15:24 04/04/21 15:25 Temperature 37.1 C Temperature Source Temporal Artery Scan Pulse Rate 110 H 105 H Pulse Rate [Right Finger] 114 H Pulse Rate from SpO2 Sensor 105 H Pulse Rhythm Pulse Rhythm [Right Finger] Regular Pulse Strength [Right Finger] Normal Respiratory Rate 18 19 19 Respiratory Effort / Characteristics Non-Labored Non-Labored Spontaneous Respiratory Depth Normal Normal Respiratory Pattern Regular Blood Pressure 137/78 186/101 H Blood Pressure [Right Arm] 186/101 H Blood Pressure Mean 97 129 Blood Pressure Mean [Right Arm] 129 Blood Pressure Position [Right Arm] Sitting Pulse Oximetry 94 95 95 Oxygen Delivery Method Room Air Room Air Sepsis Recent Fever Within 48 Hours No Sepsis New/Unexplained Change in Mental Status No Sepsis Action Taken by Nursing No Action Required 04/04/21 15:29 04/04/21 15:30 04/04/21 15:32 Temperature Temperature Source Pulse Rate 103 H 104 H 102 H Pulse Rate [Right Finger] Pulse Rate from SpO2 Sensor 103 H 100 H 102 H Pulse Rhythm Pulse Rhythm [Right Finger] Pulse Strength [Right Finger] Respiratory Rate 19 19 16 Respiratory Effort / Characteristics Respiratory Depth Respiratory Pattern Blood Pressure 132/79 Blood Pressure [Right Arm] Blood Pressure Mean 96 Blood Pressure Mean [Right Arm] Blood Pressure Position [Right Arm] Pulse Oximetry 95 92 95 Oxygen Delivery Method Sepsis Recent Fever Within 48 Hours Sepsis New/Unexplained Change in Mental Status Sepsis Action Taken by Nursing 04/04/21 15:40 04/04/21 15:50 04/04/21 16:00 Temperature Temperature Source Pulse Rate 105 H 120 H 103 H Pulse Rate [Right Finger] Pulse Rate from SpO2 Sensor 105 H Pulse Rhythm Pulse Rhythm [Right Finger] Pulse Strength [Right Finger] Respiratory Rate 17 18 19 Respiratory Effort / Characteristics Respiratory Depth Respiratory Pattern Blood Pressure Blood Pressure [Right Arm] Blood Pressure Mean Blood Pressure Mean [Right Arm] Blood Pressure Position [Right Arm] Pulse Oximetry 95 Oxygen Delivery Method Sepsis Recent Fever Within 48 Hours Sepsis New/Unexplained Change in Mental Status Sepsis Action Taken by Nursing 04/04/21 16:01 04/04/21 16:10 04/04/21 16:20 Temperature Temperature Source Pulse Rate 107 H 98 H 103 H Pulse Rate [Right Finger] Pulse Rate from SpO2 Sensor 98 H 102 H Pulse Rhythm Regular Pulse Rhythm [Right Finger] Pulse Strength [Right Finger] Respiratory Rate 16 16 16 Respiratory Effort / Characteristics Respiratory Depth Respiratory Pattern Blood Pressure Blood Pressure [Right Arm] Blood Pressure Mean Blood Pressure Mean [Right Arm] Blood Pressure Position [Right Arm] Pulse Oximetry 96 94 96 Oxygen Delivery Method Room Air Sepsis Recent Fever Within 48 Hours Sepsis New/Unexplained Change in Mental Status Sepsis Action Taken by Nursing 04/04/21 16:30 04/04/21 16:40 04/04/21 16:50 Temperature Temperature Source Pulse Rate 102 H 105 H 97 H Pulse Rate [Right Finger] Pulse Rate from SpO2 Sensor 102 H 105 H 97 H Pulse Rhythm Pulse Rhythm [Right Finger] Pulse Strength [Right Finger] Respiratory Rate 16 16 16 Respiratory Effort / Characteristics Respiratory Depth Respiratory Pattern Blood Pressure Blood Pressure [Right Arm] Blood Pressure Mean Blood Pressure Mean [Right Arm] Blood Pressure Position [Right Arm] Pulse Oximetry 97 99 94 Oxygen Delivery Method Sepsis Recent Fever Within 48 Hours Sepsis New/Unexplained Change in Mental Status Sepsis Action Taken by Nursing 04/04/21 17:00 04/04/21 17:10 04/04/21 17:20 Temperature Temperature Source Pulse Rate 103 H 93 H 106 H Pulse Rate [Right Finger] Pulse Rate from SpO2 Sensor 100 H 94 H 104 H Pulse Rhythm Pulse Rhythm [Right Finger] Pulse Strength [Right Finger] Respiratory Rate 12 14 15 Respiratory Effort / Characteristics Respiratory Depth Respiratory Pattern Blood Pressure Blood Pressure [Right Arm] Blood Pressure Mean Blood Pressure Mean [Right Arm] Blood Pressure Position [Right Arm] Pulse Oximetry 94 94 96 Oxygen Delivery Method Sepsis Recent Fever Within 48 Hours Sepsis New/Unexplained Change in Mental Status Sepsis Action Taken by Nursing 04/04/21 17:30 04/04/21 17:40 04/04/21 18:12 Temperature Temperature Source Pulse Rate 92 H 117 H 116 H Pulse Rate [Right Finger] Pulse Rate from SpO2 Sensor 92 H 116 H 116 H Pulse Rhythm Pulse Rhythm [Right Finger] Pulse Strength [Right Finger] Respiratory Rate 15 24 26 H Respiratory Effort / Characteristics Respiratory Depth Respiratory Pattern Blood Pressure Blood Pressure [Right Arm] Blood Pressure Mean Blood Pressure Mean [Right Arm] Blood Pressure Position [Right Arm] Pulse Oximetry 94 95 93 Oxygen Delivery Method Sepsis Recent Fever Within 48 Hours Sepsis New/Unexplained Change in Mental Status Sepsis Action Taken by Nursing 04/04/21 18:13 04/04/21 18:20 04/04/21 18:30 Temperature Temperature Source Pulse Rate 113 H 109 H 107 H Pulse Rate [Right Finger] 110 H Pulse Rate from SpO2 Sensor 113 H 109 H 108 H Pulse Rhythm Pulse Rhythm [Right Finger] Pulse Strength [Right Finger] Respiratory Rate 15 18 16 Respiratory Effort / Characteristics Non-Labored Respiratory Depth Normal Respiratory Pattern Blood Pressure 135/86 Blood Pressure [Right Arm] 135/86 Blood Pressure Mean 102 Blood Pressure Mean [Right Arm] 102 Blood Pressure Position [Right Arm] Pulse Oximetry 92 92 92 Oxygen Delivery Method Room Air Sepsis Recent Fever Within 48 Hours Sepsis New/Unexplained Change in Mental Status Sepsis Action Taken by Nursing 04/04/21 18:40 04/04/21 18:50 04/04/21 19:00 Temperature Temperature Source Pulse Rate 105 H 98 H 98 H Pulse Rate [Right Finger] Pulse Rate from SpO2 Sensor 105 H 98 H 97 H Pulse Rhythm Pulse Rhythm [Right Finger] Pulse Strength [Right Finger] Respiratory Rate 14 15 15 Respiratory Effort / Characteristics Respiratory Depth Respiratory Pattern Blood Pressure 96/67 L Blood Pressure [Right Arm] Blood Pressure Mean 76 Blood Pressure Mean [Right Arm] Blood Pressure Position [Right Arm] Pulse Oximetry 91 91 91 Oxygen Delivery Method Sepsis Recent Fever Within 48 Hours Sepsis New/Unexplained Change in Mental Status Sepsis Action Taken by Nursing 04/04/21 19:09 Temperature Temperature Source Pulse Rate Pulse Rate [Right Finger] 117 H Pulse Rate from SpO2 Sensor Pulse Rhythm Pulse Rhythm [Right Finger] Regular Pulse Strength [Right Finger] Normal Respiratory Rate 18 Respiratory Effort / Characteristics Non-Labored Spontaneous Respiratory Depth Normal Respiratory Pattern Regular Blood Pressure Blood Pressure [Right Arm] 129/86 Blood Pressure Mean Blood Pressure Mean [Right Arm] 100 Blood Pressure Position [Right Arm] Sitting Pulse Oximetry 93 Oxygen Delivery Method Room Air Sepsis Recent Fever Within 48 Hours Sepsis New/Unexplained Change in Mental Status Sepsis Action Taken by Nursing Laboratory Data Result diagrams: 04/04/21 Unknown 04/04/21 Unknown Lab Results 04/04/21 04/04/21 04/04/21 Range/Units 18:13 18:33 18:33 WBC (4.8-10.8) K/uL RBC (4.2-5.4) M/uL Hgb (12.0-16.0) g/dL Hct (37-47) % MCV (80-100) fL MCH (25-34) pg MCHC (32-36) g/dL RDW Std Deviation (36.4-46.3) fL RDW Coeff of Fabiano (11.5-14.5) % Plt Count (130-400) K/uL MPV (7.4-10.4) fL Immature Gran % (Auto) % Neut % (Auto) % Lymph % (Auto) % [place] % (Auto) % Eos % (Auto) % Baso % (Auto) % Neut # (Auto) (1.4-6.5) K/uL Lymph # (Auto) (1.2-3.4) K/uL [place] # (Auto) (0.11-0.59) K/uL Eos # (Auto) (0-0.5) K/uL Baso # (Auto) (0-0.2) K/uL Immature Gran # (Auto) (0.00-0.02) K/uL Sodium (136-145) mmol/L Potassium (3.5-5.1) mmol/L Chloride (98-107) mmol/L Carbon Dioxide (21-32) mmol/L Anion Gap (3-11) BUN (7-18) mg/dl Creatinine (0.6-1.2) mg/dl Est Cr Clr Drug Dosing ml/min Est GFR ( Amer) ml/min Est GFR (Non-Af Amer) ml/min BUN/Creatinine Ratio (10-20) Glucose (70-99) mg/dl Calcium (8.5-10.1) mg/dl Total Bilirubin (0.2-1) mg/dl AST (15-37) U/L ALT (12-78) U/L Alkaline Phosphatase (45-117) U/L Troponin I (0-0.045) ng/ml Total Protein (6.4-8.2) gm/dl Albumin (3.4-5.0) gm/dl Globulin (2.5-4.0) gm/dl Albumin/Globulin Ratio (0.9-2) Lipase (73-393) U/L Specimen Hemolysis Urine Color Yellow Urine Appearance Clear (Clear) Urine pH 8.0 H (4.5-7.5) Ur Specific [place] 1.013 (1.000-1.030) Urine Protein Negative (Negative) Urine Glucose (UA) Negative (Negative) Urine Ketones Negative (Negative) Urine Blood Negative (Negative) Urine Nitrite Negative (Negative) Urine Bilirubin Negative (Negative) Urine Urobilinogen Negative (Negative) Ur Leukocyte Esterase Negative (Negative) COVID-19 Eval Order Covid19 at [facility] SARS-CoV-2 (PCR) NEGATIVE (Negative) 04/04/21 04/04/21 Range/Units Unknown Unknown WBC 12.96 H (4.8-10.8) K/uL RBC 4.59 (4.2-5.4) M/uL Hgb 14.0 (12.0-16.0) g/dL Hct 42.3 (37-47) % MCV 92.2 (80-100) fL MCH 30.5 (25-34) pg MCHC 33.1 (32-36) g/dL RDW Std Deviation 51.1 H (36.4-46.3) fL RDW Coeff of Fabiano 15.0 H (11.5-14.5) % Plt Count 230 (130-400) K/uL MPV 10.9 H (7.4-10.4) fL Immature Gran % (Auto) 0.3 % Neut % (Auto) 87.4 % Lymph % (Auto) 7.7 % Crowley % (Auto) 4.0 % Eos % (Auto) 0.4 % Baso % (Auto) 0.2 % Neut # (Auto) 11.32 H (1.4-6.5) K/uL Lymph # (Auto) 1.00 L (1.2-3.4) K/uL Crow[place] # (Auto) 0.52 (0.11-0.59) K/uL Eos # (Auto) 0.05 (0-0.5) K/uL Baso # (Auto) 0.03 (0-0.2) K/uL Immature Gran # (Auto) 0.04 H (0.00-0.02) K/uL Sodium 140 (136-145) mmol/L Potassium 4.2 (3.5-5.1) mmol/L Chloride 107 (98-107) mmol/L Carbon Dioxide 26 (21-32) mmol/L Anion Gap 7.0 (3-11) BUN 19 H (7-18) mg/dl Creatinine 0.98 (0.6-1.2) mg/dl Est Cr Clr Drug Dosing 37.4 ml/min Est GFR ( Amer) 65.9 ml/min Est GFR (Non-Af Amer) 56.8 ml/min BUN/Creatinine Ratio 19.3 (10-20) Glucose 137 H (70-99) mg/dl Calcium 9.5 (8.5-10.1) mg/dl Total Bilirubin 0.4 (0.2-1) mg/dl AST 24 (15-37) U/L ALT 29 (12-78) U/L Alkaline Phosphatase 127 H (45-117) U/L Troponin I < 0.015 (0-0.045) ng/ml Total Protein 7.6 (6.4-8.2) gm/dl Albumin 3.7 (3.4-5.0) gm/dl Globulin 3.9 (2.5-4.0) gm/dl Albumin/Globulin Ratio 0.9 (0.9-2) Lipase 96 (73-393) U/L Specimen Hemolysis Urine Color Urine Appearance (Clear) Urine pH (4.5-7.5) Ur Specific [place] (1.000-1.030) Urine Protein (Negative) Urine Glucose (UA) (Negative) Urine Ketones (Negative) Urine Blood (Negative) Urine Nitrite (Negative) Urine Bilirubin (Negative) Urine Urobilinogen (Negative) Ur Leukocyte Esterase (Negative) COVID-19 Eval Order SARS-CoV-2 (PCR) (Negative) Administered Medications Discontinued Medications Sodium Chloride (Nss 1000ml) 1,000 mls @ 999 mls/hr IV .Q1H1M STA Stop: 04/04/21 16:40 Last Infusion: 04/04/21 17:05 Dose: 0 mls/hr Documented by: [id number] Admin: 04/04/21 16:03 Dose: 999 mls/hr Documented by: [id number] Piperacillin Sod/Tazobactam Sod (Zosyn) 4.5 gm in 120 mls @ 240 mls/hr IV NOW ONE Stop: 04/04/21 18:44 Last Infusion: 04/04/21 19:07 Dose: 0 mls/hr Documented by: [id number] Admin: 04/04/21 18:27 Dose: 240 mls/hr Documented by: [id number] Ioversol (Optiray 320 100ml) 94 ml IV ONCE ONE Stop: 04/04/21 17:51 Last Admin: 04/04/21 17:50 Dose: 94 ml Documented by: [id number] Ondansetron HCl (Ondansetron Inj 2 Mg/Ml 2 Ml Vial) 4 mg IV NOW STA Stop: 04/04/21 15:41 Last Admin: 04/04/21 16:04 Dose: 4 mg Documented by: [id number] Imaging Data Radiologist's Impression: Abdomen/Pelvis CT 04/04/21 15:40 CT abd pelvis IV con only CLINICAL HISTORY: Vomiting COMPARISON STUDY: 04/25/2020 TECHNIQUE: The patient was scanned on emergent basis. The patient was scanned in a dynamic helical fashion during intravenous administration of 94 cc of Optiray 320 A dose lowering technique was utilized adhering to the principles of ALARA. CT DOSE: 473.53 mGy.cm FINDINGS: Lower chest: There are bibasilar atelectatic changes. There is small hiatal hernia. Liver: There is borderline hepatic steatosis. No focal masses are visualized. The hepatic and portal veins appear patent Gallbladder: Cholelithiasis. No gallbladder wall thickening. Spleen: Normal in size and attenuation. Pancreas: Unremarkable. Adrenal glands: Unremarkable. Kidneys: The kidney demonstrates an extrarenal pelvis. This is more prominent on the left. No solid renal masses are visualized. Bowel: There are no transition zones indicate bowel obstruction. There is extensive colonic diverticulosis. There is mild sigmoid wall thickening likely secondary to peridiverticular muscular hypertrophy. There is equivocal minimal sigmoid peridiverticular inflammatory change.. The appendix is not visualized with certainty. There are no findings to indicate acute appendicitis. Peritoneum: There is no free air. There is no ascites. There is rectus diastases. Vasculature: The abdominal aorta is normal in course and caliber. Adenopathy: None. Pelvic viscera: The uterus appears surgically absent. Skeletal structures: There is a superior endplate L1 compression deformity which appears chronic. IMPRESSION: 1. No evidence of bowel obstruction. No evidence of free air 2. Severe culver diverticulosis with equivocal minimal sigmoid peridiverticular inflammatory change 3. Cholelithiasis 4. Mild dilatation of each renal pelvis left greater than right in a pattern suggestive of minimal chronic UPJ obstruction ACT 112: Negative or not required by law. Electronically signed by: Darnell Myles M.D. 04/04/2021 6:05 PM Discharge Plan Visit Data Chief Complaint: GI Assessment Stated Complaint: VOMITING BILE,ONGOING DIGESTIVE ISSUES ED Provider: Kb Barber Discharge Problem: Vomiting, Diverticulitis Forms Stand Alone Forms: [facility] Prescriptions Prescriptions: No Action sennosides [Natural Senna Laxative] 8.6 mg tablet 17.2 mg PO DAILY PRN (Reason: Constipation) RF: 0 Benefiber Clear SF (dextrin) 3 gram/3.5 gram powder in packet 0.5 packet PO DAILY RF: 0 nystatin 100,000 unit/gram cream 1 applic topical TID RF: 0 polyethylene glycol 3350 [Miralax] 17 gram powder in packet 17 g PO BID PRN (Reason: constipation) RF: 0 levetiracetam 250 mg tablet 250 mg PO BID Qty: 60 RF: 2 famotidine 20 mg tablet 20 mg PO BID RF: 0 venlafaxine 37.5 mg capsule,extended release 24hr 37.5 mg PO QPM RF: 0 venlafaxine 75 mg capsule,extended release 24hr 75 mg PO QAM RF: 0 donepezil 10 mg tablet 10 mg PO QAM RF: 0 lisinopril 20 mg tablet 20 mg PO BID RF: 0 aspirin 81 mg Tablet,Delayed Release (Dr/Ec) 81 mg PO QAM RF: 0 simvastatin 20 mg tablet 20 mg PO QPM RF: 0 cholecalciferol (vitamin D3) [Vitamin D3] 1,000 unit Capsule 1,000 unit PO DAILY RF: 0 melatonin 1 mg Tablet 2 mg PO HS RF: 0 memantine [Namenda] 10 mg Tablet 10 mg PO BID RF: 0 amlodipine 2.5 mg tablet 2.5 mg PO DAILY RF: 0 levothyroxine [Synthroid] 88 mcg Tablet 88 mcg PO DAILYBB Qty: 30 RF: 5 Discharge Problem: Vomiting Qualifiers: Vomiting type: unspecified Vomiting Intractability: unspecified Nausea pr esence: unspecified Qualified Code(s): R11.10 - Vomiting, unspecified
[2021-04-04] MEDS ORDERED: ONDANSETRON INJ 2 MG/ML 2 ML VIAL IV STA (15:40)
[2021-04-04] MEDS ORDERED: SODIUM CHLORIDE 0.9% 1000ML 1,000 ML IV STA (15:40)
[2021-04-04 16:15] LABS: Basophils # (auto) 0.03 K/uL (0-0.2); Basophils % (auto) 0.2 %; Eosinophils # (auto) 0.05 K/uL (0-0.5); Eosinophils % (auto) 0.4 %; Hematocrit (blood only) 42.3 % (37-47); Immature Granulocytes # (auto) 0.04 K/uL (0.00-0.02); Immature Granulocytes % (auto) 0.3 %; Lymphocytes % (auto) 7.7 %; Mean Corpuscular Hemoglobin 30.5 pg (25-34); Mean Corpuscular Hgb Conc 33.1 g/dL (32-36); Mean Corpuscular Volume 92.2 fL (80-100); Mean Platelet Volume 10.9 fL (7.4-10.4); Monocytes # (auto) 0.52 K/uL (0.11-0.59); Neutrophils # (auto) 11.32 K/uL (1.4-6.5); Neutrophils % (auto) 87.4 %; Platelet Count 230 K/uL (130-400); RDW Standard Deviation 51.1 fL (36.4-46.3); Red Blood Count 4.59 M/uL (4.2-5.4); White Blood Count 12.96 K/uL (4.8-10.8)
[2021-04-04 16:38] LABS: Alanine Aminotransferase 29 U/L (12-78); Albumin Globulin Ratio 0.9 (0.9-2); Albumin Level 3.7 gm/dl (3.4-5.0); Alkaline Phosphatase 127 U/L (45-117); Aspartate Aminotransferase 24 U/L (15-37); BUN Creatinine Ratio 19.3 (10-20); Bilirubin,Total 0.4 mg/dl (0.2-1); Blood Urea Nitrogen 19 mg/dl (7-18); Calcium 9.5 mg/dl (8.5-10.1); Chloride 107 mmol/L (98-107); Creatinine Clr Calc Pharmacy 37.4 ml/min; Est GFR (African American) 65.9 ml/min; Est GFR (Non-African American) 56.8 ml/min; Globulin 3.9 gm/dl (2.5-4.0); Glucose 137 mg/dl (70-99); Lipase 96 U/L (73-393); Potassium 4.2 mmol/L (3.5-5.1); Sodium 140 mmol/L (136-145); Troponin I < 0.015 ng/ml (0-0.045)
[2021-04-04 16:39] LABS: Carbon Dioxide 26 mmol/L (21-32); Total Protein 7.6 gm/dl (6.4-8.2)
[2021-04-04] MEDS ORDERED: OPTIRAY 320 100ml IV ONE (17:50)
--- NOTE | 2021-04-04 18:07 | CT Scan Report ---
CT abd pelvis IV con only CLINICAL HISTORY: Vomiting COMPARISON STUDY: 04/25/2020 TECHNIQUE: The patient was scanned on emergent basis. The patient was scanned in a dynamic helical fa shion during intravenous administration of 94 cc of Optiray 320 A dose lowering technique was utiliz ed adhering to the principles of ALARA. CT DOSE: 473.53 mGy.cm FINDINGS: Lower chest: There are bibasilar atelectatic changes. There is small hiatal hernia. Liver: There is borderline hepatic steatosis. No focal masses are visualized. The hepatic and portal veins appear patent Gallbladder: Cholelithiasis. No gallbladder wall thickening. Spleen: Normal in size and attenuation. Pancreas: Unremarkable. Adrenal glands: Unremarkable. Kidneys: The kidney demonstrates an extrarenal pelvis. This is more prominent on the left. No solid r enal masses are visualized. Bowel: There are no transition zones indicate bowel obstruction. There is extensive colonic diverticu losis. There is mild sigmoid wall thickening likely secondary to peridiverticular muscular hypertroph y. There is equivocal minimal sigmoid peridiverticular inflammatory change.. The appendix is not visu alized with certainty. There are no findings to indicate acute appendicitis. Peritoneum: There is no free air. There is no ascites. There is rectus diastases. Vasculature: The abdominal aorta is normal in course and caliber. Adenopathy: None. Pelvic viscera: The uterus appears surgically absent. Skeletal structures: There is a superior endplate L1 compression deformity which appears chronic. IMPRESSION: 1. No evidence of bowel obstruction. No evidence of free air 2. Severe culver diverticulosis with equivocal minimal sigmoid peridiverticular inflammatory change 3. Cholelithiasis 4. Mild dilatation of each renal pelvis left greater than right in a pattern suggestive of minimal ch ronic UPJ obstruction ACT 112: Negative or not required by law. Electronically signed by: Darnell Myles M.D. 04/04/2021 6:05 PM
[2021-04-04] MEDS ORDERED: PIPERACILL/TAZOBAC CONSULT ACTIVE PRN (18:15)
[2021-04-04] MEDS ORDERED: PIPERACILLIN/TAZOBACTAM 4.5 GM/120 ML BAG IV ONE (18:15)
[2021-04-04 18:47] LABS: Appearance Urine Clear (Clear); Bilirubin Urine Negative (Negative); Blood Urine Negative (Negative); Color Urine Yellow; Glucose Urine UA Negative (Negative); Ketones Urine Negative (Negative); Leukocyte Esterase Urine Negative (Negative); Nitrite Urine Negative (Negative); Protein Urine Negative (Negative); Specific Gravity Urine 1.013 (1.000-1.030); Urobilinogen Urine Negative (Negative)
[2021-04-04] MEDS ORDERED: SODIUM CHLORIDE 0.9% 1000ML 1,000 ML IV ONE (19:53)
--- NOTE | 2021-04-04 20:14 | History & Physical Report ---
Date of Service April 04, 2021 Assessment & Plan (1) Vomiting: Mrs. Ibarra is a 75 yo woman with a history of diverticulitis who presented to [facility] after 6 episodes of non-bloody emesis. - etiology is uncertain: may be secondary to a viral gastroenteritis vs. developing diverticulitis. Food poisoning seems unlikely given lack of abrupt onset after meal consumption. - CT scan showing culver diverticulosis with equivocal minimal sigmoid peridiverticular inflammatory changes - antibiotic therapy was initiated in the ED for diverticulitis; will deescalate antibiotics from Zosyn to IV Flagyl + IV Ceftriaxone. - zofran prn for nausea - keep patient NPO; continue mIVF - probiotic (2) Alzheimer's dementia: - chronic - continue home donepzeil + memantime (3) Seizure-like activity: - continue home dose keppra (4) Cholelithiasis: - noted incidentally on cat scan of abdomen and pelvis - no evidence of acute cholecystitis (5) Depression: - continue home dose venlafaxine (6) Hyperlipidemia: - continue home dose statin (7) Obstructive sleep apnea: - CPAP qhs (8) Thyroid disease: - continue home dose synthroid (9) Hypertension: - continue home dose amlodipine and lisinopril (10) Skin excoriation: - gluteal cleft - has been seen by [facility] wound care - continue nystatin powder DVT ppx: Lovenox SQ Diet: NPO, advance as tolerated Dispo: Med/surg. PT/Ot ordered Code: Full History of Present Illness Primary Care Provider: GELY Rivas Mrs. Ibarra is a 75 yo woman with a PMHx of Alzheimers dementia and diverticulitis who was brought in by her son (caregiver and POA) for evaluation of non-bloody emesis. Upon awakening this morning, her son reports 6 episodes of vomiting. She has not had anything to eat all day - her last meal was dinner on 04/03/21. No fevers/chills, no apparent abdominal pain, no diarrhea. Patient is mostly non-verbal (due to dementia) and her son provides the history in entirety. Mrs. Ibarra was apparently on hospice for a year but was discharged from their services recently. She was vaccinated against COVID 19. No sick contacts. In the ED, she was afebrile with normal HR and BP. Her WBC was mildly elevated to 12.9; CBC was otherwise WNL. CMP normal. Lipase not elevated. UA benign. Trop undetectable. Cat scan of the abdomen and pelvis showed severe culver diverticulosis with equivacole sigmoid peridiverticular inflammatory change. No bowel obstruction, cholelithiasis noted incidentally. Patient was given IV zosyn, started on IVF and given a dose of Zofran. Allergies Allergy/AdvReac Type Severity Reaction Status Date / Time No Known Allergies Allergy Verified 04/04/21 16:25 Home Medications Medication Instructions Recorded Confirmed Type aspirin 81 mg PO QAM 08/27/18 04/04/21 History cholecalciferol (vitamin D3) 1,000 unit PO DAILY 08/27/18 04/04/21 History [Vitamin D3] donepezil 10 mg PO QAM 08/27/18 04/04/21 History lisinopril 20 mg PO BID 08/27/18 04/04/21 History melatonin 2 mg PO HS 08/27/18 04/04/21 History memantine [Namenda] 10 mg PO BID 08/27/18 04/04/21 History simvastatin 20 mg PO QPM 08/27/18 04/04/21 History venlafaxine 37.5 mg PO QPM 08/27/18 04/04/21 History venlafaxine 75 mg PO QAM 08/27/18 04/04/21 History amlodipine 2.5 mg PO DAILY 04/27/20 04/04/21 History levothyroxine [Synthroid] 88 mcg PO DAILYBB #30 tab 05/06/20 04/04/21 Rx famotidine 20 mg tablet 20 mg PO BID 03/02/21 04/04/21 History levetiracetam 250 mg tablet 250 mg PO BID #60 tab 03/02/21 04/04/21 Rx nystatin 100,000 unit/gram topical 1 applic TOPICAL TID 03/28/21 04/04/21 History cream polyethylene glycol 3350 17 gram 17 g PO BID PRN 03/28/21 04/04/21 History oral powder packet sennosides 8.6 mg tablet 17.2 mg PO DAILY PRN tab 03/28/21 04/04/21 History wheat dextrin 3 gram/3.5 gram oral 0.5 packet PO DAILY ea 03/28/21 04/04/21 History powder packet Past Med/Surg History Medical History (Updated 04/04/21 @ 22:15 by Sheri Cheema MD) Alzheimer's dementia C. difficile colitis Dementia Dementia Diverticulitis DVT (deep venous thrombosis) Fatigue Hypertension Mild sleep apnea Nocturnal hypoxia Pulmonary embolism Seizure-like activity Snoring Thyroid disease Witnessed episode of apnea Surgical History Hx of hysterectomy Family History Mother No pertinent family history Father No pertinent family history Family/Other No pertinent family history Other Family history of heart disease Family history of stroke Social History (Updated 03/28/21 @ 14:36 by Shiloh Patiño, HERNAN) Smoking Status: Former smoker Second Hand Exposure: No; Hx Alcohol Use: No Hx Substance Use: No Preferred Language: Telugu Communication Ability: Impaired Communication Ability Comment: Son with pt. Communication Tools: Facial Expression and Physical Gestures Data Consultant Required: No Beliefs That Will Affect Care: None Current Living Situation: Family Current Living Situation Comment: Son, [id number], pets current occupational status: retired Other Information That Helps Us Care for You: No other: Minimally verbal, occasional delusions, ambulatory dysfunction d/t dementia Feels Safe at Home: Yes Diet Comment: high fiber caffeine: No Gender Identity: Female Assistive Devices: CPAP, Glasses, Walker and Wheelchair Review of Systems Ear, Nose, Mouth, Throat: no nasal congestion Respiratory: no cough and no dyspnea on exertion Physical Exam Constitutional: WD/WN, vitals as above + frail appearing Eyes: + anicteric sclerae ENMT: external ear and nose normal, oropharynx normal Neck: normal visual inspection and trachea midline Respiratory: normal respiratory effort, lungs clear to auscultation no cough Cardiovascular: Rate/Rhythm: regular rhythm and + tachycardic Heart Sounds: normal S1 and normal S2; no murmur Extremities: no pedal edema Gastrointestinal (Abdomen): Inspection/Auscultation: abdomen normal to inspe ction and normal bowel sounds; abdomen not distended Percussion/Palpation: + abdomen firm; abdomen nontender, no hepatosplenomegaly and no abdominal mass Skin: no rashes, warm and dry + rash (guteal cleft redness) Results & Data Results & Data ([facility]) Vital Signs (Past 12 Hours) Vital Signs Temp Pulse Pulse Resp BP BP Pulse Ox 04/04/21 19:09 117 H 18 129/86 93 04/04/21 19:00 98 H 15 96/67 L 91 04/04/21 18:50 98 H 15 91 04/04/21 18:40 105 H 14 91 04/04/21 18:30 107 H 16 92 04/04/21 18:20 109 H 18 92 04/04/21 18:13 113 H 110 H 15 135/86 135/86 92 04/04/21 18:12 116 H 26 H 93 04/04/21 17:40 117 H 24 95 04/04/21 17:30 92 H 15 94 04/04/21 17:20 106 H 15 96 04/04/21 17:10 93 H 14 94 04/04/21 17:00 103 H 12 94 04/04/21 16:50 97 H 16 94 04/04/21 16:40 105 H 16 99 04/04/21 16:30 102 H 16 97 04/04/21 16:20 103 H 16 96 04/04/21 16:10 98 H 16 94 04/04/21 16:01 107 H 16 96 04/04/21 16:00 103 H 19 04/04/21 15:50 120 H 18 04/04/21 15:40 105 H 17 95 04/04/21 15:32 102 H 16 132/79 95 04/04/21 15:30 104 H 19 92 04/04/21 15:29 103 H 19 95 04/04/21 15:25 114 H 19 186/101 H 95 04/04/21 15:24 105 H 19 186/101 H 95 04/04/21 15:03 37.1 C 110 H 18 137/78 94 Supervising Physician Co-Signing Physician Notes Attending addendum: I have physically seen this patient, have supervised the medical residents activities, and agree with the H&P unless as otherwise noted. Assessment and Plan: Intractable nausea and vomiting- 5-6 episodes of nonbloody emesis reported Differential includes but not limited to: Viral gastroenteritis, early diverticulitis, food poisoning, cholecystitis Ceftriaxone IV and Flagyl IV as noted Zofran 4 mg IV every 6 hours as needed Famotidine 20 mg IV every 12 hours IV fluids NPO except essential medications Add probiotic If symptoms persist, may consider HIDA scan SDAT- Continue donepezil and memantine Seizure-like activity- Continue Keppra Remaining orders and notations as noted Resident Activity Tracking Resident Involvement: Resident Care Provided Care Provided: Adult Hospital Medicine (1) Depression Depression Type: unspecified Qualified Code(s): F32.9 - Major depressive disorder, single episode, unspecified (2) Hypertension Hypertension type: essential hypertension Qualified Code(s): I10 - Essential (primary) hypertension (3) Vomiting Nausea presence: unspecified Vomiting Intractability: unspecified Vomiting type: unspecified Qualified Code(s): R11.10 - Vomiting, unspecified
[2021-04-04] MEDS ORDERED: SENNA 8.6 MG TAB PO PRN (22:31)
[2021-04-04] MEDS ORDERED: levETIRAcetam 250 MG TAB PO SCH (22:31)
[2021-04-04] MEDS ORDERED: ONDANSETRON INJ 2 MG/ML 2 ML VIAL IV PRN (22:31)
[2021-04-04] MEDS ORDERED: POLYETHYLENE (MIRALAX) 17 GM PACK PO PRN (22:31)
[2021-04-04] MEDS ORDERED: cefTRIAXone SODIUM 2,000 MG in DEXTROSE 5% 50 ML IV SCH (23:00)
[2021-04-04] MEDS: VENLAFAXINE HCL XR 37.5 MG CAPXR PO SCH (23:24)
[2021-04-04] MEDS: lisinopril 20 MG TAB PO SCH (23:25)
[2021-04-04] MEDS: FAMOTIDINE 20 MG TAB PO SCH (23:25)
[2021-04-04] MEDS: SIMVASTATIN 20 MG TAB PO SCH (23:25)
[2021-04-04] MEDS: MEMANTINE HCL 10 MG TAB PO SCH (23:25)
[2021-04-04] MEDS: NYSTATIN CR 15 GM TUBE EXT SCH (23:26)
[2021-04-04] MEDS: MELATONIN 3 MG TAB PO PRN (23:50)
[2021-04-05] MEDS: metroNIDAZOLE 500 MG/100 ML BAG IV SCH ×2 (00:20→07:31)
[2021-04-05] MEDS: LEVOTHYROXINE SODIUM 88 MCG TABLET PO SCH (05:33)
[2021-04-05 05:38] LABS: Basophils # (auto) 0.02 K/uL (0-0.2); Basophils % (auto) 0.1 %; Eosinophils # (auto) 0.09 K/uL (0-0.5); Eosinophils % (auto) 0.6 %; Hematocrit (blood only) 40.2 % (37-47); Hemoglobin 13.2 g/dL (12.0-16.0); Immature Granulocytes # (auto) 0.03 K/uL (0.00-0.02); Immature Granulocytes % (auto) 0.2 %; Lymphocytes # (auto) 2.35 K/uL (1.2-3.4); Lymphocytes % (auto) 16.2 %; Mean Corpuscular Hemoglobin 30.1 pg (25-34); Mean Corpuscular Hgb Conc 32.8 g/dL (32-36); Mean Corpuscular Volume 91.6 fL (80-100); Mean Platelet Volume 10.9 fL (7.4-10.4); Monocytes # (auto) 1.55 K/uL (0.11-0.59); Monocytes % (auto) 10.7 %; Neutrophils % (auto) 72.2 %; Platelet Count 222 K/uL (130-400); RDW Coefficient of Variation 15.1 % (11.5-14.5); RDW Standard Deviation 50.9 fL (36.4-46.3); Red Blood Count 4.39 M/uL (4.2-5.4); White Blood Count 14.54 K/uL (4.8-10.8)
--- NOTE | 2021-04-05 07:41 | Hospitalist Progress Note ---
Date of Service April 05, 2021 Assessment & Plan (1) Vomiting: Mrs. Ibarra is a 75 yo female with PMHx significant for diverticulosis, severe Alzheimer's dementia, seizure-like activity, HTN, HLD, ADELA and hypothyroidism who was admitted to [facility] on 04/04 for evaluation of acute-onset NBNB vomiting. NBNB Vomiting Suspect due to a viral gastroenteritis; however developing diverticulitis cannot be ruled out given CT findings of minimal sigmoid peridiverticular inflammatory changes. - transition from IV Rocephin/Flagyl to Augmentin 875/125mg PO BID x5 days - would not recommend longer duration given low suspicion for diverticulitis - Zofran PRN for nausea - keep patient NPO for now, pending speech eval (see below) - continue mIVFs with NSS @80cc/hr - probiotic Concern for Aspiration PCP (Dr. Jamil) with previous concern for aspiration, and given recent h/o NBNB emesis yesterday, this warrants further evaluation. - CXR showing bibasilar opacities - atelectasis vs aspiration pneumonitis - speech consult placed, will advance diet pending their recs Constipation Chronic constipation. During last PCP visit several weeks ago patient was recommended to do bowel clean-out but did not do so. - ordered fleet enema x1 this AM - Miralax BID PRN Cholelithiasis Noted incidentally on cat scan of abdomen and pelvis. No evidence of acute cholecystitis. Alzheimer's Dementia Chronic - continue home donepezil 10mg PO QAM + memantine 10mg PO BID Seizure-like activity - continue home dose Levetiracetam 250mg PO BID Depression - continue home dose venlafaxine 75mg PO QAM + 37.5mg QPM HTN - continue home dose amlodipine 2.5mg PO daily and lisinopril 20mg PO BID Hyperlipidemia - continue home dose simvastatin 20mg PO QPM ADELA - CPAP QHS Hypothyroidism - continue home dose Levothyroxine 88mcg PO daily Skin Excoriation Gluteal cleft - chronic. Has been seen by [facility] wound care - continue nystatin powder DVT ppx: Lovenox SQ FEN/GI: NPO, advance as tolerated - pending speech eval Dispo: Med/surg. PT/OT ordered Code: Full code (2) Alzheimer's dementia: (3) Seizure-like activity: (4) Cholelithiasis: (5) Depression: (6) Hyperlipidemia: (7) Obstructive sleep apnea: (8) Thyroid disease: (9) Hypertension: (10) Skin excoriation: Admission and Anticipated Discharge Date Admission Date: April 04, 2021 Supervising Physician Co-Signing Physician Notes Resident Physician Supervision Note: I independently interviewed and examined the patient and verified the draper history and physical, reviewed labs and image studies and agree with resident Dr. Thakur findings and care plan. Subjective No vomiting since patient arrived in the hospital. Spoke to patient's son, as the patient is non-verbal. Son reports that the patient did not have fevers, BM changes, diarrhea, or signs of abdominal pain before episodes of vomiting yesterday. Review of Systems Review of Systems: Patient is non-verbal - ROS unobtainable. Physical Exam Physical Exam: General: NAD. Non-verbal. HEENT: Atraumatic, normocephalic. Pulm: CTAB A&P. -wheezes, -rales, -rhonchi. Symmetrical chest rise. No increase work of breathing. No respiratory distress. Cardiac: RRR, -mrg. Radial pulses intact and symmetrical. Abdominal: soft, non-tender, non-distended, BS x 4 Skin: warm, dry, no rash Results & Data Results & Data ([facility]) Vital Signs (Past 12 Hours) Vital Signs Temp Pulse Pulse Resp BP BP Pulse Ox 04/05/21 03:33 61 17 95 04/05/21 01:04 73 14 93 04/04/21 22:35 37.1 C 118 H 14 135/51 L 94 04/04/21 21:50 122 H 15 97 04/04/21 21:40 123 H 17 95 04/04/21 21:31 116 H 14 95 04/04/21 21:30 117 H 16 121/75 95 04/04/21 21:20 119 H 15 96 04/04/21 21:10 117 H 16 96 04/04/21 21:01 116 H 16 96 04/04/21 21:00 116 H 16 118/69 96 04/04/21 20:50 115 H 15 94 04/04/21 20:40 114 H 20 94 04/04/21 20:30 116 H 14 123/84 93 04/04/21 20:23 95 04/04/21 20:10 128 H 18 92 04/04/21 20:00 120 H 16 126/84 92 04/04/21 19:50 111 H 17 92 Resident Activity Tracking Resident Involvement: Resident Care Provided Care Provided: Adult Hospital Medicine (1) Depression Depression Type: unspecified Qualified Code(s): F32.9 - Major depressive disorder, single episode, unspecified (2) Hypertension Hypertension type: essential hypertension Qualified Code(s): I10 - Essential (primary) hypertension (3) Vomiting Nausea presence: unspecified Vomiting Intractability: unspecified Vomiting type: unspecified Qualified Code(s): R11.10 - Vomiting, unspecified
[2021-04-05] MEDS ORDERED: SODIUM CHLORIDE 0.9% 1000ML 1,000 ML IV SCH (08:00)
[2021-04-05] MEDS: PSYLLIUM 58.6% POWDER PACKET PO SCH (08:36)
[2021-04-05 08:40] LABS: Thyroid Stimulating Hormone 0.101 uIu/ml (0.300-4.500)
[2021-04-05 08:52] LABS: T4 Free Thyroxine 1.1 ng/dl (0.8-1.6)
--- NOTE | 2021-04-05 09:24 | XRay Report ---
XR chest 1V portable CLINICAL HISTORY: concern for aspiration COMPARISON STUDY: 04/30/2020 FINDINGS: The heart is the upper limits of normal in size. There is aortic tortuosity/ectasia. There are bibasilar opacities, likely atelectatic although an infectious/inflammatory process could appear similar. There is no failure. There are no pleural effusions.[ IMPRESSION: Bibasilar opacities, although likely atelectatic, an infectious/inflammatory process coul d appear similar ACT 112: Negative or not required by law. Electronically signed by: Darnell Myles M.D. 04/05/2021 9:22 AM
[2021-04-05] MEDS: FAMOTIDINE 20 MG TAB PO SCH ×2 (09:44→20:48)
[2021-04-05] MEDS: amLODIPine BESYLATE 5 MG TAB PO SCH (09:44)
[2021-04-05] MEDS: VENLAFAXINE HCL XR 75 MG CAPXR PO SCH (09:47)
[2021-04-05] MEDS: DONEPEZIL HCL 10 MG TAB PO SCH (09:48)
[2021-04-05] MEDS: ADVANCED PROBIOTIC 1250 MG CAPSULE PO SCH (09:48)
[2021-04-05] MEDS: CHOLECALCIFEROL 1,000 UNITS 25 MCG TAB PO SCH (09:48)
[2021-04-05] MEDS: ASPIRIN 81 MG ECTAB PO SCH (09:48)
[2021-04-05] MEDS: lisinopril 20 MG TAB PO SCH ×2 (09:48→20:50)
[2021-04-05] MEDS: MEMANTINE HCL 10 MG TAB PO SCH ×2 (09:48→20:48)
[2021-04-05] MEDS ORDERED: SOD PHOSPHATE/SOD BIPHOSPHATE ENEMA 132 ML BTL PR STA (09:57)
[2021-04-05] MEDS: NYSTATIN CR 15 GM TUBE EXT SCH ×3 (09:58→21:38)
[2021-04-05] MEDS: ENOXAPARIN INJ 40 MG/0.4 ML SYR SQ SCH (09:58)
[2021-04-05] MEDS: AMOXICILLIN/CLAVULANATE 875 MG TAB PO SCH (18:12)
[2021-04-05] MEDS: VENLAFAXINE HCL XR 37.5 MG CAPXR PO SCH (20:49)
[2021-04-05] MEDS: SIMVASTATIN 20 MG TAB PO SCH (20:49)
[2021-04-05] MEDS: MELATONIN 3 MG TAB PO PRN (20:57)
--- NOTE | 2021-04-05 21:02 | Billing Data ---
Date of Service April 05, 2021 Coding Level of Care Code 47291 OBS Care - Level 3
[2021-04-06] MEDS: LEVOTHYROXINE SODIUM 88 MCG TABLET PO SCH (05:53)
[2021-04-06 07:11] LABS: Basophils # (auto) 0.04 K/uL (0-0.2); Basophils % (auto) 0.3 %; Eosinophils # (auto) 0.21 K/uL (0-0.5); Eosinophils % (auto) 1.8 %; Hematocrit (blood only) 40.2 % (37-47); Hemoglobin 13.3 g/dL (12.0-16.0); Immature Granulocytes # (auto) 0.03 K/uL (0.00-0.02); Immature Granulocytes % (auto) 0.3 %; Lymphocytes # (auto) 2.84 K/uL (1.2-3.4); Lymphocytes % (auto) 24.2 %; Mean Corpuscular Hemoglobin 30.9 pg (25-34); Mean Corpuscular Hgb Conc 33.1 g/dL (32-36); Mean Corpuscular Volume 93.3 fL (80-100); Mean Platelet Volume 11.4 fL (7.4-10.4); Monocytes # (auto) 1.22 K/uL (0.11-0.59); Monocytes % (auto) 10.4 %; Neutrophils # (auto) 7.39 K/uL (1.4-6.5); Platelet Count 237 K/uL (130-400); RDW Coefficient of Variation 14.7 % (11.5-14.5); RDW Standard Deviation 50.5 fL (36.4-46.3); Red Blood Count 4.31 M/uL (4.2-5.4); White Blood Count 11.73 K/uL (4.8-10.8)
[2021-04-06 07:53] LABS: Calcium 8.8 mg/dl (8.5-10.1); Creatinine Clr Calc Pharmacy 49.8 ml/min; Est GFR (African American) 95.6 ml/min; Est GFR (Non-African American) 82.5 ml/min; Magnesium 2.1 mg/dl (1.8-2.4); Phosphorus 2.8 mg/dl (2.5-4.9)
[2021-04-06] MEDS: NYSTATIN CR 15 GM TUBE EXT SCH (08:40)
[2021-04-06] MEDS: ENOXAPARIN INJ 40 MG/0.4 ML SYR SQ SCH (08:40)
[2021-04-06] MEDS: amLODIPine BESYLATE 5 MG TAB PO SCH (08:41)
[2021-04-06] MEDS: ASPIRIN 81 MG ECTAB PO SCH (08:41)
[2021-04-06] MEDS: FAMOTIDINE 20 MG TAB PO SCH (08:41)
[2021-04-06] MEDS: ADVANCED PROBIOTIC 1250 MG CAPSULE PO SCH (08:42)
[2021-04-06] MEDS: CHOLECALCIFEROL 1,000 UNITS 25 MCG TAB PO SCH (08:42)
[2021-04-06] MEDS: VENLAFAXINE HCL XR 75 MG CAPXR PO SCH (08:42)
[2021-04-06] MEDS: PSYLLIUM 58.6% POWDER PACKET PO SCH (08:42)
[2021-04-06] MEDS: MEMANTINE HCL 10 MG TAB PO SCH (08:42)
[2021-04-06] MEDS: DONEPEZIL HCL 10 MG TAB PO SCH (08:42)
[2021-04-06] MEDS: AMOXICILLIN/CLAVULANATE 875 MG TAB PO SCH (08:42)
[2021-04-06] MEDS: lisinopril 20 MG TAB PO SCH (08:42)
[2021-04-06] MEDS ORDERED: POTASSIUM CHLORIDE CRTAB 20 MEQ TABCR PO STA (09:30)
--- NOTE | 2021-04-06 09:55 | Discharge Summary ---
Date of Service April 06, 2021 Admission HPI Per Admitting Provider Mrs. Ibarra is a 75 yo woman with a PMHx of Alzheimers dementia and diverticulitis who was brought in by her son (caregiver and POA) for evaluation of non-bloody emesis. Upon awakening this morning, her son reports 6 episodes of vomiting. She has not had anything to eat all day - her last meal was dinner on 04/03/21. No fevers/chills, no apparent abdominal pain, no diarrhea. Patient is mostly non- verbal (due to dementia) and her son provides the history in entirety. Mrs. Ibarra was apparently on hospice for a year but was discharged from their services recently. She was vaccinated against COVID 19. No sick contacts. In the ED, she was afebrile with normal HR and BP. Her WBC was mildly elevated to 12.9; CBC was otherwise WNL. CMP normal. Lipase not elevated. UA benign. Trop undetectable. Cat scan of the abdomen and pelvis showed severe culver diverticulosis with equivacole sigmoid peridiverticular inflammatory change. No bowel obstruction, cholelithiasis noted incidentally. Patient was given IV zosyn, started on IVF and given a dose of Zofran. Admission Exam Per Admitting Provider Constitutional: WD/WN, vitals as above + frail appearing Eyes: + anicteric sclerae ENMT: external ear and nose normal, oropharynx normal Neck: normal visual inspection and trachea midline Respiratory: normal respiratory effort, lungs clear to auscultation no cough Cardiovascular: Rate/Rhythm: regular rhythm and + tachycardic Heart Sounds: normal S1 and normal S2; no murmur Extremities: no pedal edema Gastrointestinal (Abdomen): Inspection/Auscultation: abdomen normal to inspection and normal bowel sounds; abdomen not distended Percussion/Palpation: + abdomen firm; abdomen nontender, no hepatosplenomegaly and no abdominal mass Skin: no rashes, warm and dry + rash (guteal cleft redness) Principal Diagnosis Vomiting Diverticulitis Discharge Exam General: NAD. Non-verbal. HEENT: Atraumatic, normocephalic. Pulm: CTAB A&P. -wheezes, -rales, -rhonchi. Symmetrical chest rise. No increase work of breathing. No respiratory distress. Cardiac: RRR, -mrg. Radial pulses intact and symmetrical. Abdominal: soft, non-tender, non-distended, BS x 4 Skin: warm, dry, no rash Discharge Data Allergies Allergy/AdvReac Type Severity Reaction Status Date / Time No Known Allergies Allergy Verified 04/04/21 16:25 Ordered Studies 04/04/21 15:40 CT abd pelvis IV con only Stat Hospital Course (1) Vomiting: Mrs. Ibarra is a 75 yo female with PMHx significant for diverticulosis, severe Alzheimer's dementia, seizure-like activity, HTN, HLD, ADELA and hypothyroidism who was admitted to [facility] from 04/04 - 04/06 for NBNB Vomiting likely secondary to acute viral gastroenteritis as well as mild diverticulitis. NBNB Vomiting Suspect due to a viral gastroenteritis; however developing diverticulitis could not be ruled out given CT findings of minimal sigmoid peridiverticular inflammatory changes. - given Zosyn x1, transitioned to IV Rocephin/Flagyl x1, then transitioned to Augmentin 875/125mg PO BID x5 days starting on 04/05 - continue after discharge - patient advanced to full diet within 24 hours without N/V, continue regular diet after discharge - given mIVFs with NSS @80cc/hr, which were stopped after transition to full diet Concern for Aspiration PCP (Dr. Jamil) with previous concern for aspiration, and given recent h/o NBNB emesis yesterday, this warranted further evaluation. However, had speech evaluation without evidence of aspiration - continue to monitor as outpatient Constipation Chronic constipation. During last PCP visit several weeks ago patient was recommended to do bowel clean-out but did not do so. - ordered fleet enema x1 on 04/05, started to have diarrhea likely 2/2 above - continue stool softeners PRN after discharge Cholelithiasis Noted incidentally on cat scan of abdomen and pelvis. No evidence of acute cholecystitis. Alzheimer's Dementia Chronic - continue home donepezil 10mg PO QAM + memantine 10mg PO BID Seizure-like activity - continue home dose Levetiracetam 250mg PO BID Depression - continue home dose venlafaxine 75mg PO QAM + 37.5mg QPM HTN - continue home dose amlodipine 2.5mg PO daily and lisinopril 20mg PO BID Hyperlipidemia - continue home dose simvastatin 20mg PO QPM ADELA - CPAP QHS Hypothyroidism - continue home dose Levothyroxine 88mcg PO daily Skin Excoriation Gluteal cleft - chronic. Has been seen by [place] wound care - continue nystatin powder Total Time Total Time Spent Total Time Spent (In Minutes): 30 minutes Total Time Includes: Examination of the Patient, Discharge Planning and Medication Reconciliation Discharge Plan Discharge Items Patient Disposition: Home - Self-Care Reason For Visit: VOMITING Discharge Diagnosis: Vomiting Diverticulitis Activity: Per Instructions section Non-emergency contact: Primary Care Provider Call non-emergency contact if: your symptoms worsen, your pain is worsening and you have a fever Follow-up/Referrals: Naomi Patterson CRNP [Primary Care Provider] - 04/11/21 2:00 pm Maximo Jamil DO [Resident] - Diet: Heart Healthy Addtl Attending Provider Instructions: You were admitted to [facility] from 04/04 - 04/06 after several episodes of vomiting. You had a CT scan that showed a possible mild abdominal infection called diverticulitis, and you were started on IV antibiotics that were quickly transitioned to oral antibiotics for this. Your symptoms quickly resolved, and you did not show signs of pain. Thus your symptoms may have also been due to a viral GI illness. You were given IV fluids and quickly progressed to a full diet without signs of nausea or vomiting. You will be discharged in improved, stable condition on 04/06. You should continue to try maintaining good oral hydration with fluids. You should continue to take Augmentin twice a day for 3 days, to make sure that you are treated for possible diverticulitis. You should take all of your regular medications as scheduled. [facility] will contact you about setting up an appointment within [address] Jamil. We hope you continue to feel well. It was a pleasure to help provide your care while you were hospitalized. Pending Studies at Discharge: No Stand-Alone Forms: My [facility], Smoking Cessation Medications and DC Order Prescriptions: New amoxicillin-pot clavulanate [Augmentin] 875-125 mg tablet 1 tab PO BID 3 Days Qty: 6 RF: 0 Continued sennosides [Natural Senna Laxative] 8.6 mg tablet 17.2 mg PO DAILY PRN (Reason: Constipation) RF: 0 Benefiber Clear SF (dextrin) 3 gram/3.5 gram powder in packet 0.5 packet PO DAILY RF: 0 nystatin 100,000 unit/gram cream 1 applic topical TID RF: 0 polyethylene glycol 3350 [Miralax] 17 gram powder in packet 17 g PO BID PRN (Reason: constipation) RF: 0 levetiracetam 250 mg tablet 250 mg PO BID Qty: 60 RF: 2 famotidine 20 mg tablet 20 mg PO BID RF: 0 venlafaxine 37.5 mg capsule,extended release 24hr 37.5 mg PO QPM RF: 0 venlafaxine 75 mg capsule,extended release 24hr 75 mg PO QAM RF: 0 donepezil 10 mg tablet 10 mg PO QAM RF: 0 lisinopril 20 mg tablet 20 mg PO BID RF: 0 aspirin 81 mg Tablet,Delayed Release (Dr/Ec) 81 mg PO QAM RF: 0 simvastatin 20 mg tablet 20 mg PO QPM RF: 0 cholecalciferol (vitamin D3) [Vitamin D3] 1,000 unit Capsule 1,000 unit PO DAILY RF: 0 melatonin 1 mg Tablet 2 mg PO HS RF: 0 memantine [Namenda] 10 mg Tablet 10 mg PO BID RF: 0 amlodipine 2.5 mg tablet 2.5 mg PO DAILY RF: 0 levothyroxine [Synthroid] 88 mcg Tablet 88 mcg PO DAILYBB Qty: 30 RF: 5 Discharge Orders: Discharge Order (Routine); Ordered 04/06/21 Ordered By: Deondre Hammer/Other Patient Handouts: Diverticulosis Diverticulitis Admission Data Admit Date/Time: 04/04/21 20:04 Attending Provider: Karlie Frederick Admit Provider: Sheri Cheema Primary Care Provider: Naomi Patterson Other Providers: Leander Bustamante Other Interventions: Discharge Summary Assessment (RN) Last Done: 04/06/21 14:37 Supervising Physician Co-Signing Physician Notes Resident Physician Supervision Note: I independently interviewed and examined the patient and verified the draper history and physical, reviewed labs and image studies and agree with resident Dr. Thakur findings and care plan. Resident Activity Tracking Resident Involvement: Resident Care Provided Care Provided: Adult Hospital Medicine
[2021-04-06] MEDS ORDERED: POTASSIUM CHLORIDE PWD 20 MEQ PACK PO ONE (10:30)
== END 2021-04-06 16:41 | disposition home or self-care (01) ==
LOC: ED 14:58 → 3W 14:58 → SUATTDRO 20:04 → 3W 22:16

== ENCOUNTER 2025-04-13 09:54 | Inpatient (IN) ==
[2025-04-13 10:41] LABS: Hematocrit (blood only) 42.4 % (37.0-47.0); Hemoglobin 13.8 g/dl (12.0-16.0); Mean Corpuscular Hemoglobin 30.5 pg (25.0-34.0); Mean Corpuscular Volume 93.6 fL (80.0-100.0); Platelet Count 360 K/uL (130-400); RDW Standard Deviation 51.1 fL (36.4-46.3); Red Blood Count 4.53 M/uL (4.20-5.40); White Blood Count 37.48 K/ul (4.8-10.8)
[2025-04-13 10:44] LABS: Alanine Aminotransferase 59 U/L (7-52); Albumin Globulin Ratio 1.1 (0.9-2); Alkaline Phosphatase 99 U/L (34-104); Anion Gap 11 (3-11); Bilirubin,Total 0.4 mg/dl (0.2-1.0); Blood Urea Nitrogen 24 mg/dl (6-23); Calcium 9.4 mg/dl (8.6-10.3); Carbon Dioxide 23 mmol/L (21-32); Chloride 109 mmol/L (98-107); Globulin 2.9 gm/dl (2.5-4.0); Glucose 141 mg/dl (70-99(Fasting)); Potassium 4.1 mmol/L (3.5-5.1); Sodium 143 mmol/L (136-145); Total Protein 6.2 gm/dl (6.0-8.3)
[2025-04-13 10:46] LABS: Immature Granulocytes # (auto) 0.53 K/uL (0.01-0.20); Immature Granulocytes % (auto) 1.4 %; Polychromasia 1+; Toxic Vacuolation 1+
[2025-04-13] MEDS: cefTRIAXone SODIUM 2,000 MG/50 ML BAG IV STA (11:00)
[2025-04-13] MEDS: SODIUM CHLORIDE 0.9% 1,000 ML IV ONE (11:00)
--- NOTE | 2025-04-13 11:08 | XRay Report ---
SINGLE VIEW CHEST CLINICAL HISTORY: Dyspnea FINDINGS: An AP, portable, upright chest radiograph is compared to study dated 11/29/2021 and correlat ed with chest CT dated 08/04/2018. The examination is degraded by portable technique and patient rota tion. The cardiomediastinal silhouette is top normal for projection noting atherosclerotic calcifica tion of the thoracic aorta. There is pulmonary vascular congestion. There are bibasilar airspace opac ities, left side greater than right. No large pleural effusion or pneumothorax is seen. The skeletal structures are osteopenic. The bony thorax is grossly intact. IMPRESSION: 1. Pulmonary vascular congestion. 2. There are bibasilar airspace opacities, left side greater than right. Correlate clinically for scot dence of pneumonia/aspiration pneumonitis. Radiographic follow-up to resolution is recommended. ACT 112: Negative or not required by law. Electronically signed by: Sourav Acosta M.D. 04/13/2025 11:06 AM
[2025-04-13] MEDS: DOXYCYCLINE HYCLATE 100 MG in DEXTROSE 5% MINI-B 100 ML IV SCH (11:16)
--- NOTE | 2025-04-13 11:20 | Emergency Department Note ---
Impression & Plan Aspiration pneumonia, Acute hypoxic respiratory failure, Pneumonia ED Provider Note NAME: WAYNE WILKINS AGE: 79 SEX: F : 1945 ARRIVES VIA: Ambulance INFORMANT: Patient, ED PROVIDER(S): Dina Abdul MD CHIEF COMPLAINT: Shortness of breath, aspiration HPI: This is a 79-year-old male presents for shortness of breath. Patient was being treated for an upper respiratory infection with Augmentin. She is getting a breathing treatment today when she had emesis. She vomited into the mass. She apically breathing after this. She was sent over here for concerns of aspiration. Reported the patient has a baseline of being nonverbal, she currently does not respond to voice here. She does respond painful stimuli. ROS: Unable to obtain PHYSICAL EXAMINATION: General: resting comfortably in no acute distress Head: Normocephalic and atraumatic Eyes: Normal inspection, extraocular muscles intact Ear, nose, throat: Normal external exam Neck: Normal range of motion Respiratory:Coarse lung sounds in all lung ng kaur Cardiovascular: Regular rate/rhythm, no murmur GI: soft, nontender, no guarding or rebound Extremities: nontender, moves all extremities Neuro:no focal deficits, symmetric faces Skin: Warm, dry, and intact MEDICAL DECISION MAKING: This is 79-year-old male presenting for shortness of breath. Patient is hypoxic and tachycardic. Will give oxygen here. Will get blood cultures, lactic acid level, fluids and antibiotics. -Critical leukocytosis at 37.48. Otherwise patient lactic acid level significant elevated at 5.4 -Patient 1 L normal saline however patient does appear to be having signs of possible fluid overload on chest x-ray will defer further fluid as patient is not hypotensive - Chest x-ray reveals bibasilar opacities left greater than right concerning for pneumonia/aspiration pneumonitis. There is also pulmonary vas congestion -Patient empirically given ceftriaxone/doxycycline IV -Patient will require admission to hospitalist service for aspiration pneumonia/pneumonia Differential diagnosis: Pneumonia, aspiration, sepsis Diagnostics interpreted by me: ECG: ECG independently interpreted by me with sinus tachycardia, rate of 125, normal IL, normal QRS, normal QTc, no ST segment elevations consistent with STEMI criteria Cardiac Monitoring: An order was placed for continuous cardiac monitoring. The monitor shows a rate of 119 with sinus tachycardia rhythm. Critical Care Note: I have personally spent 34 minutes of critical care time in the direct management of this patient. This includes bedside care, interpretation of diagnostic studies, and testing, discussion with consultants, patient, and family members, and other required patient management activities. This 34 minutes is in excess of all separately billable procedures. Past Med/Surg History Problem List (Updated 04/13/25 @ 15:11 by Dina Abdul MD) Pneumonia (Acute) Acute hypoxic respiratory failure (Acute) Aspiration pneumonia (Acute) Firmness of abdomen Nausea & vomiting Acute respiratory failure with hypoxia Acute pneumonia Hypertension Skin excoriation (Acute) Myoclonus Alzheimer's dementia Chronic kidney disease, stage 3a Seizure-like activity Nocturnal hypoxia Mild sleep apnea Fatigue History of DVT (deep vein thrombosis) Hyperlipidemia Cholelithiasis Elevated alkaline phosphatase level Elevated lipase Anemia Nonspecific colitis Lactic acid increased Elevated lipase Depression C. difficile colitis (Acute) Colitis with rectal bleeding (Acute) Dementia (Chronic) Thyroid disease (Chronic) DVT (deep venous thrombosis) Pulmonary embolism Dementia (Acute) C. difficile colitis Medical History Vomiting Witnessed episode of apnea Snoring Seizure-like activity Nocturnal hypoxia Mild sleep apnea Fatigue Alzheimer's dementia Diverticulitis C. difficile colitis Dementia Pulmonary embolism DVT (deep venous thrombosis) Hypertension Thyroid disease Dementia Surgical History Hx of hysterectomy Family History Mother No pertinent family history Father No pertinent family history Family/Other No pertinent family history Other Family history of heart disease Family history of stroke Social History Smoking Status: Unknown if ever smoked Second Hand Exposure: No; Do You Dip or Chew Tobacco: No; Hx Alcohol Use: No Hx Substance Use: No Preferred Language: Malay Communication Ability: Impaired Communication Ability Comment: Son with pt. Communication Tools: Facial Expression and Physical Gestures Certified Shorthand Reporter Required: No Beliefs That Will Affect Care: None Current Living Situation: Family Current Living Situation Comment: Son, [id number], pets current occupational status: retired other: Minimally verbal, occasional delusions, ambulatory dysfunction d/t dementia Feels Safe at Home: Yes Diet Comment: high fiber caffeine: No Gender Identity: Female Assistive Devices: Walker Allergies Allergies Allergy/AdvReac Type Severity Reaction Status Date / Time No Known Allergies Allergy Verified 04/13/25 13:29 Home Meds Home Medications Medication Instructions Recorded Confirmed aspirin 81 mg tablet,delayed 81 mg PO QAM 08/27/18 04/13/25 release cholecalciferol (vitamin D3) 25 1,000 unit PO QAM 08/27/18 04/13/25 mcg (1,000 unit) capsule (Vitamin D3) donepezil 10 mg tablet 10 mg PO QAM 08/27/18 04/13/25 lisinopril 20 mg tablet 20 mg PO BID 08/27/18 04/13/25 melatonin 1 mg tablet 2 mg PO HS 08/27/18 04/13/25 simvastatin 20 mg tablet 20 mg PO QPM 08/27/18 04/13/25 venlafaxine 37.5 mg 37.5 mg PO QAM 08/27/18 04/13/25 capsule,extended release 24 hr amlodipine 2.5 mg tablet 2.5 mg PO QAM 04/27/20 04/13/25 famotidine 20 mg tablet 20 mg PO BID 03/02/21 04/13/25 acetaminophen 325 mg tablet 650 mg PO Q4H PRN Fever 04/13/25 04/13/25 acetaminophen 325 mg tablet 650 mg PO Q4H PRN Pain 04/13/25 04/13/25 bisacodyl 10 mg rectal suppository 10 mg [place] DAILY PRN Constipation 04/13/25 04/13/25 guaifenesin 100 mg/5 mL oral liquid 200 mg PO Q4H PRN Cough 04/13/25 04/13/25 ipratropium 0.5 mg-albuterol 3 mg 3 ml inhalation QID Pneumonia 04/13/25 04/13/25 (2.5 mg base)/3 mL nebulization soln levothyroxine 75 mcg tablet 75 mcg PO QAM 04/13/25 04/13/25 magnesium hydroxide 400 mg/5 mL 2,400 mg PO DAILY PRN Constipation 04/13/25 04/13/25 oral suspension (Milk of Magnesia) memantine 10 mg tablet 10 mg PO BID 04/13/25 04/13/25 omeprazole 20 mg capsule,delayed 20 mg PO BID 04/13/25 04/13/25 release psyllium husk 3.4 gram/5.4 gram 1 tsp PO QAM 04/13/25 04/13/25 oral powder (Metamucil) Results & Data (ED) Vital Signs Vital Signs - 24 hr 04/13/25 10:06 04/13/25 10:06 04/13/25 10:10 Temperature 36.9 C Temperature Source Oral Pulse Rate 126 H Pulse Rate from SpO2 Sensor Pulse Rhythm Regular Respiratory Rate 22 Respiratory Effort / Characteristics Labored Labored Respiratory Depth Normal Respiratory Pattern Regular Blood Pressure 133/83 Blood Pressure Mean 99 Blood Pressure Position Sitting Pulse Oximetry 86 L 93 Oxygen Delivery Method Room Air Nasal Cannula Oxygen Flow Rate 4 Sepsis Recent Fever Within 48 Hours No Sepsis New/Unexplained Change in Mental Status No Sepsis Action Taken by Nursing Physician Notified 04/13/25 10:12 04/13/25 10:30 04/13/25 10:37 Temperature Temperature Source Pulse Rate 120 H 140 H 126 H Pulse Rate from SpO2 Sensor 120 H Pulse Rhythm Respiratory Rate 22 25 H Respiratory Effort / Characteristics Respiratory Depth Respiratory Pattern Blood Pressure 120/78 114/75 Blood Pressure Mean 92 85 Blood Pressure Position Pulse Oximetry 93 89 L Oxygen Delivery Method Nasal Cannula Nasal Cannula Oxygen Flow Rate 4 4 Sepsis Recent Fever Within 48 Hours Sepsis New/Unexplained Change in Mental Status Sepsis Action Taken by Nursing Laboratory Data 04/13/25 10:09 04/13/25 10:09 Lab Results 04/13/25 04/13/25 Range/Units 10:09 10:55 WBC 37.48 H* (4.8-10.8) K/ul RBC 4.53 (4.20-5.40) M/uL Hgb 13.8 (12.0-16.0) g/dl Hct 42.4 (37.0-47.0) % MCV 93.6 (80.0-100.0) fL MCH 30.5 (25.0-34.0) pg MCHC 32.5 (32.0-36.0) g/dL RDW Std Deviation 51.1 H (36.4-46.3) fL RDW Coeff of Fabiano 14.9 H (11.5-14.5) % Plt Count 360 (130-400) K/uL MPV 10.2 (9.4-12.4) fL Immature Gran % (Auto) 1.4 % Neut % (Auto) 93.7 % Lymph % (Auto) 1.5 % [place] % (Auto) 3.1 % Eos % (Auto) 0.0 % Baso % (Auto) 0.3 % Neut # (Auto) 35.12 H (1.40-6.50) K/uL Lymph # (Auto) 0.55 L (1.20-3.40) K/uL [place] # (Auto) 1.17 H (0.11-0.59) K/uL Eos # (Auto) 0.01 (0.00-0.50) K/uL Baso # (Auto) 0.10 (0.00-0.20) K/uL Immature Gran # (Auto) 0.53 H (0.01-0.20) K/uL Toxic Vacuolation 1+ Polychromasia 1+ Sodium 143 (136-145) mmol/L Potassium 4.1 (3.5-5.1) mmol/L Chloride 109 H (98-107) mmol/L Carbon Dioxide 23 (21-32) mmol/L Anion Gap 11 (3-11) BUN 24 H (6-23) mg/dl Creatinine 1.18 (0.6-1.2) mg/dl Est Cr Clr Drug Dosing Not Reportable eGFR 47.28 BUN/Creatinine Ratio 20.3 H (10-20) Glucose 141 H (70-99(Fasting)) mg/dl Lactate 5.4 H* (0.4-2.0) mmol/L Calcium 9.4 (8.6-10.3) mg/dl Total Bilirubin 0.4 (0.2-1.0) mg/dl AST 83 H (13-39) U/L ALT 59 H (7-52) U/L Alkaline Phosphatase 99 (34-104) U/L B-Natriuretic Peptide 8 (0-100) pg/ml Total Protein 6.2 (6.0-8.3) gm/dl Albumin 3.3 L (3.4-5.0) gm/dl Globulin 2.9 (2.5-4.0) gm/dl Albumin/Globulin Ratio 1.1 (0.9-2) Administered Medications Discontinued Medications Sodium Chloride (Nss) 1,000 mls @ 999 mls/hr IV .Q1H1M ONE Stop: 04/13/25 11:47 Last Infusion: 04/13/25 12:01 Dose: Infused Documented By: Admin: 04/13/25 11:00 Dose: 999 mls/hr Documented By: GENARO Ceftriaxone Sodium (Rocephin) 2,000 mg in 50 mls @ 100 mls/hr IV NOW STA Stop: 04/13/25 11:16 Last Infusion: 04/13/25 11:30 Dose: Infused Documented By: Admin: 04/13/25 11:00 Dose: 100 mls/hr Documented By: GENARO Doxycycline Hyclate 100 mg/ (Dextrose) 100 mls @ 50 mls/hr IV Q12H AMERICO Stop: 04/15/25 10:59 Last Infusion: 04/13/25 13:16 Dose: Infused Documented By: Admin: 04/13/25 11:16 Dose: 50 mls/hr Documented By: GENARO Lactated Ringer's (Lr) 1,000 mls @ 999 mls/hr IV .Q1H1M ONE Stop: 04/13/25 12:52 Last Infusion: 04/13/25 13:40 Dose: Infused Documented By: Admin: 04/13/25 12:39 Dose: 999 mls/hr Documented By: GENARO Piperacillin Sod/Tazobactam Sod (Zosyn) 4.5 gm in 100 mls @ 200 mls/hr IV NOW STA; Protocol Stop: 04/13/25 12:37 Last Infusion: 04/13/25 13:09 Dose: Infused Documented By: Admin: 04/13/25 12:39 Dose: 200 mls/hr Documented By: GENARO Ipratropium [place] (Ipratropium [place] Neb Soln 0.02% 0.5mg/2.5ml Vial) 0.5 mg NEB NOW STA Stop: 04/13/25 12:22 Last Admin: 04/13/25 12:51 Dose: 0.5 mg Documented By: EDMUNDO Levalbuterol HCl (Levalbuterol 1.25 Mg/3 Ml Neb) 1.25 mg NEB NOW STA Stop: 04/13/25 12:22 Last Admin: 04/13/25 12:51 Dose: 1.25 mg Documented By: EDMUNDO Imaging Data Radiologist's Impression: Chest X-Ray 04/13/25 10:06 SINGLE VIEW CHEST CLINICAL HISTORY: Dyspnea FINDINGS: An AP, portable, upright chest radiograph is compared to study dated 11/29/2021 and correlated with chest CT dated 08/04/2018. The examination is degraded by portable technique and patient rotation. The cardiomediastinal silhouette is top normal for projection noting atherosclerotic calcification of the thoracic aorta. There is pulmonary vascular congestion. There are bibasilar airspace opacities, left side greater than right. No large pleural effusion or pneumothorax is seen. The skeletal structures are osteopenic. The bony thorax is grossly intact. IMPRESSION: 1. Pulmonary vascular congestion. 2. There are bibasilar airspace opacities, left side greater than right. Correlate clinically for evidence of pneumonia/aspiration pneumonitis. Radiographic follow-up to resolution is recommended. ACT 112: Negative or not required by law. Electronically signed by: Sourav Acosta M.D. 04/13/2025 11:06 AM Discharge Plan Visit Data Chief Complaint: Shortness of Breath/Dyspnea ED Provider: Dina Abdul Discharge Problem: Aspiration pneumonia, Acute hypoxic respiratory failure, Pneumonia Patient Disposition: Admitted As Inpatient Condition: Serious Discharge Instructions Interventions: ED Discharge Assessment Last Done: 04/13/25 13:30 Discharge Problem: Aspiration pneumonia Qualifiers: Aspiration pneumonia type: due to gastric secretions Laterality: bilateral Lung location: lower lobe of lung Qualified Code(s): J69.0 - Pneumonitis due to inhalation of food and vomit Pneumonia Qualifiers: Pneumonia type: due to unspecified organism Laterality: bilateral Lung location: lower lobe of lung Qualified Code(s): J18.9 - Pneumonia, unspecified organism
[2025-04-13] MEDS ORDERED: ACETAMINOPHEN 325 MG TAB PO PRN (11:50)
[2025-04-13] MEDS: LACTATED RINGER'S 1,000 ML IV ONE (12:39)
[2025-04-13] MEDS: PIPERACILLIN/TAZOBACTAM 4.5 GM/100 ML BAG IV STA (12:39)
[2025-04-13] MEDS: LEVALBUTEROL 1.25 MG/3 ML NEB NEB STA (12:51)
[2025-04-13] MEDS: IPRATROPIUM BROMIDE NEB SOLN 0.02% 0.5MG/2.5ML VIAL NEB STA (12:51)
--- NOTE | 2025-04-13 13:00 | History & Physical Report ---
Date of Service April 13, 2025 Assessment & Plan (1) Witnessed episode of apnea: (2) Vomiting: (3) Alzheimer's dementia: (4) Hyperlipidemia: (5) Lactic acid increased: (6) Dementia: Plan The patient is a 79-year-old female who presented to the ED on 04/13/2025 s/p vomiting episode and hypoxia with suspected aspiration pneumonia Assessment and plan: Acute hypoxic respiratory failure Aspiration pneumonia Hx ADELA on CPAP Sepsis tachycardic, hypoxic lactic acidosis and leukocytosis noted on arrival consistent with sepsis received IV fluids and IV Zosyn/Doxy in the ER, blood cultures pending, check sputum culture, check viral panel Found to be 89% on room air, placed on 4 L of oxygen with improvement - cpap hs Will keep n.p.o., await ABG, check chest CTA to rule out PE, speech & pulm consulted BNP within normal limits, appears euvolemic on exam Hx dementia: Continue donepezil/Namenda Hx HLD/HTN: BP soft, hold amlodipine/lisinopril, continue statin Hx hypothyroidism: Continue Synthroid, check TSH A total of 60 minutes was spent on chart review/reviewing diagnostic data/facilitating plan of care/discussion with consultants Full code DVT prophylaxis: Lovenox History of Present Illness Chief Complaint: Vomiting, hypoxia Primary Care Provider: Red Craig MD The patient is a 79-year-old female with a past medical history of dementia, hypothyroidism, HTN, constipation, HLD who presents to the ED on 04/13/2025 after she was sent in by her [facility] facility s/p vomiting with CPAP 1. At this time, she became hypoxic. The patient was being treated for community- acquired pneumonia with Augmentin since 04/02. There was also concern for a UTI outpatient. Outpatient culture + for pansensitive E. coli. The patient is nonverbal at baseline and unable to provide a history. Per the [facility] facility, the patient vomited while she had her CPAP on and became hypoxic. On exam, there is audible rhonchi and increased work of breathing. The patient is tachycardic in the 120s. On arrival to the ED, labs remarkable for WBC 37.4, BUN 24, glucose 141, lactate 5.4, AST 83, ALT 59 1. Pulmonary vascular congestion. 2. There are bibasilar airspace opacities, left side greater than right. Correlate clinically for evidence of pneumonia/aspiration pneumonitis. Radiographic follow-up to resolution is recommended. The patient was given IV antibiotics, IV fluids and will be admitted for further management of acute respiratory distress and aspiration Allergies Allergy/AdvReac Type Severity Reaction Status Date / Time No Known Allergies Allergy Verified 06/16/21 10:31 Home Medications Medication Instructions Recorded Confirmed Type aspirin 81 mg tablet,delayed 81 mg PO QAM 08/27/18 06/16/21 History release cholecalciferol (vitamin D3) 25 1,000 unit PO DAILY 08/27/18 06/16/21 History mcg (1,000 unit) capsule (Vitamin D3) donepezil 10 mg tablet 10 mg PO QAM 08/27/18 06/16/21 History lisinopril 20 mg tablet 20 mg PO BID 08/27/18 06/16/21 History melatonin 1 mg tablet 2 mg PO HS 08/27/18 06/16/21 History memantine 10 mg tablet (Namenda) 10 mg PO BID 08/27/18 06/16/21 History simvastatin 20 mg tablet 20 mg PO QPM 08/27/18 06/16/21 History venlafaxine 37.5 mg 37.5 mg PO QPM 08/27/18 06/16/21 History capsule,extended release 24 hr amlodipine 2.5 mg tablet 2.5 mg PO DAILY 04/27/20 06/16/21 History levothyroxine 88 mcg tablet 88 mcg PO DAILYBB #30 tabs 05/06/20 06/16/21 Rx (Synthroid) famotidine 20 mg tablet 20 mg PO BID 03/02/21 06/16/21 History polyethylene glycol 3350 17 gram 17 g PO BID PRN constipation 03/28/21 06/16/21 History oral powder packet (Miralax) wheat dextrin 3 gram/3.5 gram oral 0.5 packet PO DAILY 03/28/21 06/16/21 History powder packet (Benefiber Clear Sugar Free(dextrin)) Past Med/Surg History Problem List Hypertension Skin excoriation (Acute) Myoclonus Alzheimer's dementia Chronic kidney disease, stage 3a Seizure-like activity Nocturnal hypoxia Mild sleep apnea Fatigue History of DVT (deep vein thrombosis) Hyperlipidemia Cholelithiasis Elevated alkaline phosphatase level Elevated lipase Anemia Nonspecific colitis Lactic acid increased Elevated lipase Depression C. difficile colitis (Acute) Colitis with rectal bleeding (Acute) Dementia (Chronic) Thyroid disease (Chronic) DVT (deep venous thrombosis) Pulmonary embolism Dementia (Acute) C. difficile colitis Medical History Vomiting Witnessed episode of apnea Snoring Seizure-like activity Nocturnal hypoxia Mild sleep apnea Fatigue Alzheimer's dementia Diverticulitis C. difficile colitis Dementia Pulmonary embolism DVT (deep venous thrombosis) Hypertension Thyroid disease Dementia Surgical History Hx of hysterectomy Family History Mother No pertinent family history Father No pertinent family history Family/Other No pertinent family history Other Family history of heart disease Family history of stroke Social History Smoking Status: Unknown if ever smoked Second Hand Exposure: No; Do You Dip or Chew Tobacco: No; Hx Alcohol Use: No Hx Substance Use: No Preferred Language: Belarusian Communication Ability: Impaired Communication Ability Comment: Son with pt. Communication Tools: Facial Expression and Physical Gestures Sales Account Specialist Required: No Beliefs That Will Affect Care: None Current Living Situation: Family Current Living Situation Comment: Son, [id number], pets current occupational status: retired other: Minimally verbal, occasional delusions, ambulatory dysfunction d/t dementia Feels Safe at Home: Yes Diet Comment: high fiber caffeine: No Gender Identity: Female Assistive Devices: Walker Review of Systems Review of Systems: All systems reviewed & are unremarkable except as noted in HPI & below Physical Exam Constitutional: WD/WN, vitals as above Eyes: PERRL, conjunctivae normal, anicteric sclerae ENMT: external ear and nose normal, oropharynx normal Neck: trachea midline, no thyromegaly Respiratory: normal respiratory effort, lungs clear to auscultation (Audible rhonchi bilateral lungs) + labored breathing Cardiovascular: RRR, no murmur, no edema Gastrointestinal (Abdomen): normal bowel sounds, soft, nontender, no hepatosplenomegaly Musculoskeletal: no cyanosis or clubbing, extremities motor strength 5/5 Skin: no rashes, warm and dry Neurologic: PERRL, EOMI, accommodation nl, no face palsy, no dysarthria (Nonverbal, no apparent distress) Lymphatic: no cervical or axillary lymphadenopathy Results & Data Results & Data Vital Signs (Past 12 Hours) Vital Signs Temp Pulse Resp BP Pulse Ox O2 Del Method O2 Flow Rate 04/13/25 10:37 126 H 04/13/25 10:30 140 H 25 H 114/75 89 L Nasal Cannula 4 04/13/25 10:12 120 H 22 120/78 93 Nasal Cannula 4 04/13/25 10:06 93 Nasal Cannula 4 04/13/25 10:06 36.9 C 126 H 22 133/83 86 L Room Air Diagnostic Findings Laboratory Results WBC 37.48 K/ul (4.8-10.8) H* 04/13/25 10:09 RBC 4.53 M/uL (4.20-5.40) 04/13/25 10:09 Hgb 13.8 g/dl (12.0-16.0) 04/13/25 10:09 Hct 42.4 % (37.0-47.0) 04/13/25 10:09 MCV 93.6 fL (80.0-100.0) 04/13/25 10:09 MCH 30.5 pg (25.0-34.0) 04/13/25 10:09 MCHC 32.5 g/dL (32.0-36.0) 04/13/25 10:09 RDW Std Deviation 51.1 fL (36.4-46.3) H 04/13/25 10:09 RDW Coeff of Fabiano 14.9 % (11.5-14.5) H 04/13/25 10:09 Plt Count 360 K/uL (130-400) 04/13/25 10:09 MPV 10.2 fL (9.4-12.4) 04/13/25 10:09 Immature Gran % (Auto) 1.4 % 04/13/25 10:09 Neut % (Auto) 93.7 % 04/13/25 10:09 Lymph % (Auto) 1.5 % 04/13/25 10:09 [place] % (Auto) 3.1 % 04/13/25 10:09 Eos % (Auto) 0.0 % 04/13/25 10:09 Baso % (Auto) 0.3 % 04/13/25 10:09 Neut # (Auto) 35.12 K/uL (1.40-6.50) H 04/13/25 10:09 Lymph # (Auto) 0.55 K/uL (1.20-3.40) L 04/13/25 10:09 [place] # (Auto) 1.17 K/uL (0.11-0.59) H 04/13/25 10:09 Eos # (Auto) 0.01 K/uL (0.00-0.50) 04/13/25 10:09 Baso # (Auto) 0.10 K/uL (0.00-0.20) 04/13/25 10:09 Immature Gran # (Auto) 0.53 K/uL (0.01-0.20) H 04/13/25 10:09 Toxic Vacuolation 1+ 04/13/25 10:09 Polychromasia 1+ 04/13/25 10:09 Sodium 143 mmol/L (136-145) 04/13/25 10:09 Potassium 4.1 mmol/L (3.5-5.1) 04/13/25 10:09 Chloride 109 mmol/L (98-107) H 04/13/25 10:09 Carbon Dioxide 23 mmol/L (21-32) 04/13/25 10:09 Anion Gap 11 (3-11) 04/13/25 10:09 BUN 24 mg/dl (6-23) H 04/13/25 10:09 Creatinine 1.18 mg/dl (0.6-1.2) 04/13/25 10:09 Est Cr Clr Drug Dosing Not Reportable 04/13/25 10:09 eGFR 47.28 04/13/25 10:09 BUN/Creatinine Ratio 20.3 (10-20) H 04/13/25 10:09 Glucose 141 mg/dl (70-99(Fasting)) H 04/13/25 10:09 Lactate 5.4 mmol/L (0.4-2.0) H* 04/13/25 10:55 Calcium 9.4 mg/dl (8.6-10.3) 04/13/25 10:09 Total Bilirubin 0.4 mg/dl (0.2-1.0) 04/13/25 10:09 AST 83 U/L (13-39) H 04/13/25 10:09 ALT 59 U/L (7-52) H 04/13/25 10:09 Alkaline Phosphatase 99 U/L (34-104) 04/13/25 10:09 B-Natriuretic Peptide 8 pg/ml (0-100) 04/13/25 10:09 Total Protein 6.2 gm/dl (6.0-8.3) 04/13/25 10:09 Albumin 3.3 gm/dl (3.4-5.0) L 04/13/25 10:09 Globulin 2.9 gm/dl (2.5-4.0) 04/13/25 10:09 Albumin/Globulin Ratio 1.1 (0.9-2) 04/13/25 10:09 Impressions Chest X-Ray 04/13/25 10:06 SINGLE VIEW CHEST CLINICAL HISTORY: Dyspnea FINDINGS: An AP, portable, upright chest radiograph is compared to study dated 11/29/2021 and correlated with chest CT dated 08/04/2018. The examination is degraded by portable technique and patient rotation. The cardiomediastinal silhouette is top normal for projection noting atherosclerotic calcification of the thoracic aorta. There is pulmonary vascular congestion. There are bibasilar airspace opacities, left side greater than right. No large pleural effusion or pneumothorax is seen. The skeletal structures are osteopenic. The bony thorax is grossly intact. IMPRESSION: 1. Pulmonary vascular congestion. 2. There are bibasilar airspace opacities, left side greater than right. Correlate clinically for evidence of pneumonia/aspiration pneumonitis. Radiographic follow-up to resolution is recommended. ACT 112: Negative or not required by law. Electronically signed by: Sourav Acosta M.D. 04/13/2025 11:06 AM (2) Vomiting Nausea presence: unspecified Vomiting Intractability: unspecified Vomiting type: unspecified Qualified Code(s): R11.10 - Vomiting, unspecified (6) Dementia Dementia type: unspecified type Dementia behavioral disturbance: without behavioral disturbance Qualified Code(s): F03.90 - Unspecified dementia without behavioral disturbance
--- NOTE | 2025-04-13 13:27 | Communication Note ---
Date of Service: April 13, 2025 Attending Addendum: Case reviewed with the advanced practitioner. I have personally performed a history and physical examination on the patient. I have reviewed the advanced practitioner's documentation on the date of service referenced in note, and I agree with, and take responsibility for the plan of care. please refer to her notes for full details patient seen and examined, records reviewed by myself as well on exam, patient seen sitting up, on 4L NC, awake, alert, nonverbal patient's son at bedside visiting not in distress, but has audible crackles and mild tachypnea VS noted and reviewed oriented x 0, non verbal, not in distress, but has some mild tachypnea and accessory muscle use normal rate, regular rhythm, no murmurs (+) crackles BL, no wheezing non distended, soft, nontender no bipedal edema, erythema, warmth non verbal, otherwise no focal neuro deficits all labs, imaging noted and reviewed ASSESSMENT AND PLAN> SEPSIS SECONDARY TO BILATERAL PNEUMONIA, POSSIBLE HCAP VS ASPIRATION ACUTE HYPOXIC RESPIRATORY FAILURE SECONDARY TO ABOVE ADELA on CPAP, HISTORY OF SMOKING DEMENTIA - last 04/02, diagnosed with BL lower lobe pneumonia, treated with Augmentin, completed 04/09/25 also treated for pansensitive E coli with Augmentin -- currently requiring 4-5 L (only using CPAP at HS as baseline) -- lactic acid 5.2 -- CT chest: pending ABG, repeat lactic acid, MRSA nasal swab, respiratory panel, blood cultures, sputum culture, urinalysis Zosyn + Doxycycline IV fluids, monitor lactic acid CPAP continuous, Nebs QID NPO for now Pulm consult Speech Eval tomorrow other diagnoses and plan of care as per advanced practitioner's notes I spent a total of 45 minutes coordinating, documenting, and providing care for this patient, excluding time spent in the performance of separately billed services or time spent by another provider/QHP. Jose G Beverly MD
[2025-04-13 14:03] LABS: iSTAT Art Bld Gas Base Excess -10.0 meg/L (-9-1.8)
--- NOTE | 2025-04-13 14:04 | Pulmonary Consultation ---
Date of Consultation April 13, 2025 Assessment & Plan (1) Acute pneumonia: Obtain respiratory viral panel, urine Legionella antigen and MRSA screen. Agree with Zosyn. Add vancomycin if MRSA screen is positive. Change doxycycline to azithromycin for better Legionella coverage. QTc acceptable. CT chest to evaluate for pleural effusions and possible abscess. Also useful to evaluate for mucous plugging. PE less likely, but possible especially given her history of DVT and PE. (2) Acute respiratory failure with hypoxia: Continue wean supplemental oxygen as able. Transition off BiPAP to high flow nasal cannula. (3) Nausea & vomiting: Patient with vomiting earlier today and firmness on her abdomen to palpation. There is also some mild tenderness. Will obtain a CT abdomen/pelvis especially in light of the patient's lactic acidosis. (4) Dementia: Patient with advanced dementia and is nonverbal at baseline. CODE STATUS discussed with the patient's son who indicates that he would want his mother to be a full code in the event of a cardiopulmonary arrest. He notes that his sister feels differently and would want her to be a DNR/DNI, but they share medical power of collections attorney for the patient. Dementia behavioral disturbance: without behavioral disturbance Dementia type: unspecified type Qualified Code(s): F03.90 - Unspecified dementia without behavioral disturbance (5) Firmness of abdomen: CT abdomen/pelvis as above. Plan Pulmonary to continue to follow. Thank you for the consult. Plan of care discussed with the bedside RN and patient. I spent 15 minutes reviewing the electronic medical record/relevant imaging, 15 minutes discussing diagnosis and treatment plan with patient/family, and 10 minutes discussing care plan with ancillary staff such as RT/RN/pharmacist/information technology coordinator/PT/OT/other consulting medical services. History of Present Illness Reason for Consultation: "hypoxia, pna" Attending Physician: Jose G Beverly MD History of Present Illness 79-year-old female with a past medical history of Alzheimer's dementia with a nonverbal state at baseline residing at a [facility], ADELA, and CKD stage III presenting to the hospital due to hypoxia. She apparently aspirated into her CPAP about 2 weeks ago. She has been ill with fevers for the past 2 weeks as reported by her son who is at bedside. He also notes that she has had an occasional cough. Patient's son also notes that he has been coughing significantly for the last few days. She was being treated for community- acquired pneumonia as an outpatient since April 02 with Augmentin. There was also concern of UTI with positive E. coli in the urine which was pansensitive. Labs were concerning for significant leukocytosis, lactic acidosis, mild EDUARDO, transaminitis. Chest x-ray revealed evidence of bilateral infiltrates; left greater than right. Patient unable to provide any of her own history. She is currently on BiPAP at a setting of 10/5 with 40% FiO2. Allergies Allergy/AdvReac Type Severity Reaction Status Date / Time No Known Allergies Allergy Verified 04/13/25 13:29 Home Medications Medication Instructions Recorded Confirmed Type aspirin 81 mg tablet,delayed 81 mg PO QAM 08/27/18 04/13/25 History release cholecalciferol (vitamin D3) 25 1,000 unit PO QAM 08/27/18 04/13/25 History mcg (1,000 unit) capsule (Vitamin D3) donepezil 10 mg tablet 10 mg PO QAM 08/27/18 04/13/25 History lisinopril 20 mg tablet 20 mg PO BID 08/27/18 04/13/25 History melatonin 1 mg tablet 2 mg PO HS 08/27/18 04/13/25 History simvastatin 20 mg tablet 20 mg PO QPM 08/27/18 04/13/25 History venlafaxine 37.5 mg 37.5 mg PO QAM 08/27/18 04/13/25 History capsule,extended release 24 hr amlodipine 2.5 mg tablet 2.5 mg PO QAM 04/27/20 04/13/25 History famotidine 20 mg tablet 20 mg PO BID 03/02/21 04/13/25 History acetaminophen 325 mg tablet 650 mg PO Q4H PRN Fever 04/13/25 04/13/25 History acetaminophen 325 mg tablet 650 mg PO Q4H PRN Pain 04/13/25 04/13/25 History bisacodyl 10 mg rectal suppository 10 mg RI DAILY PRN Constipation 04/13/25 04/13/25 History guaifenesin 100 mg/5 mL oral liquid 200 mg PO Q4H PRN Cough 04/13/25 04/13/25 History ipratropium 0.5 mg-albuterol 3 mg 3 ml inhalation QID Pneumonia 04/13/25 04/13/25 History (2.5 mg base)/3 mL nebulization soln levothyroxine 75 mcg tablet 75 mcg PO QAM 04/13/25 04/13/25 History magnesium hydroxide 400 mg/5 mL 2,400 mg PO DAILY PRN Constipation 04/13/25 04/13/25 History oral suspension (Milk of Magnesia) memantine 10 mg tablet 10 mg PO BID 04/13/25 04/13/25 History omeprazole 20 mg capsule,delayed 20 mg PO BID 04/13/25 04/13/25 History release psyllium husk 3.4 gram/5.4 gram 1 tsp PO QAM 04/13/25 04/13/25 History oral powder (Metamucil) Patient History Medical History Vomiting Witnessed episode of apnea Snoring Seizure-like activity Nocturnal hypoxia Mild sleep apnea Fatigue Alzheimer's dementia Diverticulitis C. difficile colitis Dementia Pulmonary embolism DVT (deep venous thrombosis) Hypertension Thyroid disease Dementia Surgical History Hx of hysterectomy Family History Mother No pertinent family history Father No pertinent family history Family/Other No pertinent family history Other Family history of heart disease Family history of stroke Social History Smoking Status: Unknown if ever smoked Second Hand Exposure: No; Do You Dip or Chew Tobacco: No; Hx Alcohol Use: No Hx Substance Use: No Preferred Language: Niuean Communication Ability: Impaired Communication Ability Comment: Son with pt. Communication Tools: Facial Expression and Physical Gestures Rn Wound Care Required: No Beliefs That Will Affect Care: None Current Living Situation: Family Current Living Situation Comment: Son, [id number], pets current occupational status: retired other: Minimally verbal, occasional delusions, ambulatory dysfunction d/t dementia Feels Safe at Home: Yes Diet Comment: high fiber caffeine: No Gender Identity: Female Assistive Devices: Walker Review of Systems Review of Systems: Unobtainable due to endotracheal tube and Unobtainable due to reduced consciousness Physical Exam Physical Exam: Constitutional: Elderly appearing female in mild distress. BiPAP mask in place. Opens eyes spontaneously. Eyes: Pupils are equal round and reactive to light. Conjunctivae are normal. Anicteric sclera. Ears nose, mouth and throat: Mallampati class unable to be classified. BiPAP mask in place. Neck: Trachea is midline. Visual inspection is normal. Respiratory: Diffuse rhonchi. Tachypneic. Cardiovascular: Tachycardic. Regular rhythm. No murmurs. No edema. Gastrointestinal: Mildly firm abdomen with tenderness to palpation in the left lower quadrant. Musculoskeletal: No cyanosis. Patient is able to move all extremities. Strength is 5 out of 5 in the upper and lower extremities. Skin: No rashes, warm dry and intact. Neurologic: No obvious focal neurological deficits seen. Psychiatric: Confused. Results & Data Results & Data Vital Signs (Past 12 Hours) Vital Signs Temp Pulse Pulse Resp BP Pulse Ox O2 Del Method 04/13/25 13:23 111 H 22 96 BiPAP 04/13/25 13:06 115 H 24 121/83 95 Nasal Cannula 04/13/25 12:52 114 H 22 95 BiPAP 04/13/25 12:45 116 H 22 95 04/13/25 12:39 121 H 24 134/72 91 04/13/25 12:09 119 H 23 128/81 93 Nasal Cannula 04/13/25 11:57 111 H 22 128/81 94 Nasal Cannula 04/13/25 10:37 126 H 04/13/25 10:30 140 H 25 H 114/75 89 L Nasal Cannula 04/13/25 10:12 120 H 22 120/78 93 Nasal Cannula 04/13/25 10:06 93 Nasal Cannula 04/13/25 10:06 36.9 C 126 H 22 133/83 86 L Room Air O2 Flow Rate FiO2 04/13/25 13:23 04/13/25 13:06 4 04/13/25 12:52 35 04/13/25 12:45 35 04/13/25 12:39 04/13/25 12:09 4 04/13/25 11:57 4 04/13/25 10:37 04/13/25 10:30 4 04/13/25 10:12 4 04/13/25 10:06 4 04/13/25 10:06 PG Care Time/CCT Total # of Minutes Spent Total Time Spent with Patient: Total time spent is greater than 50% in coordination of care (as documented) at patient's floor/unit and/or counseling patient: Coding Level of Care Code 86711 INT INP/OBS CARE 255MIN Diagnoses Acute pneumonia J18.9 Acute respiratory failure with hypoxia J96.01 Nausea & vomiting R11.2 Dementia F03.90 Dementia behavioral disturbance: without behavioral disturbance Dementia type: unspecified type Firmness of abdomen R19.8 Time Spent (min) 55
[2025-04-13 15:24] LABS: Chlamydia pneumoniae PCR Not Detected (NotDetected); Coronavirus 229E PCR Not Detected (NotDetected); Coronavirus CoV-2 (COVID19)PCR Not Detected (NotDetected); Coronavirus HKU1 PCR Not Detected (NotDetected); Coronavirus NL63 PCR Not Detected (NotDetected); Coronavirus OC43PCR Not Detected (NotDetected); Human Metapneumovirus PCR Not Detected (NotDetected); Parainfluenza Virus 1 PCR Not Detected (NotDetected); Parainfluenza Virus 2 PCR Not Detected (NotDetected); Parainfluenza Virus 3 PCR Not Detected (NotDetected); Parainfluenza Virus 4 PCR Not Detected (NotDetected); Respiratory Syncytial VirusPCR Not Detected (NotDetected); Rhinovirus/Enterovirus PCR DETECTED (NotDetected)
[2025-04-13] MEDS: Patient's HEIGHT &/or WEIGHT Needed STA (16:23)
[2025-04-13] MEDS: AZITHROMYCIN 500 MG/255 ML BAG IV ONE (16:26)
--- NOTE | 2025-04-13 16:37 | XCELERA ---
[id number]
[2025-04-13 17:10] LABS: Appearance Urine Clear (Clear); Bacteria Urine Automated None Seen (None Seen); Cast Urine Automated 0-2 /lpf (0-2); Glucose Urine UA Negative (Negative); RBC Urine Automated 0-2 /hpf (0-2)
[2025-04-13] MEDS: OPTIRAY 320 125ml IV ONE (17:18)
--- NOTE | 2025-04-13 18:08 | Electrocardiogram Report ---
Test Reason : Blood Pressure : */* mmHG Vent. Rate : 125 BPM Atrial Rate : 125 BPM P-R Int : 148 ms QRS Dur : 70 ms QT Int : 302 ms P-R-T Axes : -12 -9 -22 degrees QTcB Int : 435 ms Sinus tachycardia possible Inferior infarct , age undetermined Abnormal ECG When compared with ECG of 02-May-2020 20:10, Inferior infarct is now Present Nonspecific T wave abnormality now evident in Lateral leads Confirmed by Dusty Zapien ([id number]) on 04/13/2025 6:08:06 PM Referred By: Confirmed By: Dusty Zapien
--- NOTE | 2025-04-13 18:16 | CT Scan Report ---
CT pulmonary angiogram with IV contrast History: Shortness of breath COMPARISON: None TECHNIQUE: CT angiography of the chest was performed without IV contrast followed by IV contrast, including 3D post processing CTA image reconstruction. Dose reduction techniques were achieved by using automatic exposure control and/or adjustment of mA and/or kV according to patient size and/or use of iterative reconstruction technique. FINDINGS: Diagnostic quality: Adequate There is no evidence for pulmonary embolism. The heart is not enlarged. There is no pericardial effusion. There are no abnormally enlarged hilar or mediastinal lymph nodes. The central tracheobronchial tree is clear. Multifocal areas of nodular consolidative opacity throughout the lungs, with a lower lung predominance. Postobstructive confluent atelectasis seen at the periphery of both lung bases. There is no pleural effusion. Limited visualized upper abdomen. No destructive osseous changes are seen. IMPRESSION: No evidence for pulmonary embolism. Multifocal pneumonia. Electronically signed by Dusyt Biggs 04-13-2025 6:16 PM
--- NOTE | 2025-04-13 18:18 | CT Scan Report ---
EXAMINATION: CT of the abdomen and pelvis performed after the administration of IV contrast TECHNIQUE: Helical CT images from the lung bases through the symphysis pubis were obtained with contrast. Coronal and sagittal reformatted images were generated at a workstation for further assessment. Dose reduction techniques were achieved by using automatic exposure control and/or adjustment of mA and/or kV according to patient size and/or use of iterative reconstruction technique. COMPARISON: April 04, 2021 HISTORY: Abdominal pain FINDINGS: Liver: No suspicious liver lesions. Portal veins appear patent. Gallbladder: No gallstones. No evidence of acute cholecystitis. Spleen: Normal size. Pancreas: No suspicious pancreatic lesions. The pancreatic duct is not dilated. Adrenal glands: No adrenal nodules. Kidneys: No hydronephrosis or obstructing renal stones. Bladder / Pelvic organs: A Menon catheter is in place decompressing the urinary bladder. Mild free pelvic fluid. Bowel: No bowel obstruction. There is diffuse prominent wall thickening involving the large bowel. The sigmoid colon demonstrates mucosal hyperenhancement. The appendix is unremarkable. Diverticulosis without diverticulitis. Lymph nodes: No retroperitoneal, mesenteric, or pelvic lymphadenopathy. Peritoneum / Retroperitoneum: No free fluid or air within the abdomen. Vessels: No infrarenal aortic aneurysm. Bones and soft tissues: No suspicious lesion in the bones. Chronic deformity inferior right pubic ramus. IMPRESSION: Diffuse prominent wall thickening of the large bowel, suggestive of colitis. Electronically signed by Dusty Biggs 04-13-2025 6:18 PM
[2025-04-13] MEDS: PIPERACILLIN/TAZOBACTAM 4.5 GM/100 ML BAG IV SCH (18:50)
[2025-04-13] MEDS: LEVALBUTEROL 0.31MG/3 ML VIAL NEB SCH (20:10)
[2025-04-13] MEDS: LACTATED RINGER'S 500 ML IV ONE (20:13)
[2025-04-13] MEDS: VENLAFAXINE HCL XR 37.5 MG CAPXR PO SCH (20:14)
[2025-04-13] MEDS: MEMANTINE HCL 10 MG TAB PO SCH (20:14)
[2025-04-13] MEDS: SIMVASTATIN 20 MG TAB PO SCH (20:14)
[2025-04-13] MEDS: LACTATED RINGER'S 1,000 ML IV SCH (20:15)
[2025-04-13] MEDS ORDERED: DOXYCYCLINE HYCLATE 100 MG in DEXTROSE 5% MINI-B 100 ML IV SCH (21:00)
[2025-04-14] MEDS: SODIUM CHLORIDE 0.9% 1,000 ML IV ONE (00:50)
[2025-04-14] MEDS: FUROSEMIDE INJ 20 MG/2 ML VIAL IV ONE (01:10)
[2025-04-14 01:22] LABS: iSTAT Art Bld Gas Base Excess -5.0 meg/L (-9-1.8)
[2025-04-14] MEDS ORDERED: VANCOMYCIN CONSULT ACTIVE PRN (01:41)
--- NOTE | 2025-04-14 02:25 | XRay Report ---
EXAM: XR chest 1V portable CLINICAL HISTORY: Shortness of breath. TECHNIQUE: An X-ray image of the chest is obtained in AP projection. 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 FINDINGS: Pulmonary Parenchyma: Scattered areas of increased airspace opacification in the right mid and lower zone, and left lower zone. No pulmonary nodules are identified. No evidence of pleural effusion or pleural thickening. Heart and Mediastinum: Heart size and shape are normal. No mediastinal widening or masses. No hilar or mediastinal lymphadenopathy. Bony Thorax: The bony thorax appears intact without fractures or deformities. Soft Tissues: Soft tissues overlying the chest wall are unremarkable. Overlying chest leads are seen. IMPRESSION: 1. Scattered areas of increased airspace opacification in the right mid/lower zone and left lower zone, concerning infective or inflammatory etiology. (unchanged). 2. Clinical/lab correlation and follow-up are suggested. Electronically signed by Leonardo Briscoe 04-14-2025 02:15 AM
[2025-04-14] MEDS: VANCOMYCIN HCL 1,500 MG in SODIUM CHLORIDE 0.9% 500 ML IV ONE (02:31)
[2025-04-14] MEDS: LEVOTHYROXINE SODIUM 88 MCG TABLET PO SCH (05:38)
[2025-04-14 06:02] LABS: Hematocrit (blood only) 33.1 % (37.0-47.0); Hemoglobin 10.6 g/dl (12.0-16.0); Mean Corpuscular Hemoglobin 29.9 pg (25.0-34.0); Mean Corpuscular Volume 93.2 fL (80.0-100.0); Platelet Count 283 K/uL (130-400); RDW Standard Deviation 51.2 fL (36.4-46.3); Red Blood Count 3.55 M/uL (4.20-5.40); White Blood Count 32.50 K/ul (4.8-10.8)
[2025-04-14 06:13] LABS: Alanine Aminotransferase 38.0 U/L (7-52); Albumin Globulin Ratio 1.0 (0.9-2); Alkaline Phosphatase 73.0 U/L (34-104); Anion Gap 12.0 (3-11); Bilirubin,Total 0.7 mg/dl (0.2-1.0); Blood Urea Nitrogen 17.0 mg/dl (6-23); Calcium 8.4 mg/dl (8.6-10.3); Carbon Dioxide 23.0 mmol/L (21-32); Chloride 104.0 mmol/L (98-107); Creatinine Clr Calc Pharmacy 40.6 ml/min; Globulin 2.8 gm/dl (2.5-4.0); Glucose 288.0 mg/dl (70-99(Fasting)); Potassium 3.8 mmol/L (3.5-5.1); Sodium 139.0 mmol/L (136-145); Total Protein 5.6 gm/dl (6.0-8.3)
[2025-04-14 06:27] LABS: Immature Granulocytes # (auto) 0.90 K/uL (0.01-0.20); Immature Granulocytes % (auto) 2.8 %
[2025-04-14] MEDS: AZITHROMYCIN 250 MG in DEXTROSE 5% 250 ML IV SCH (07:42)
[2025-04-14] MEDS: ENOXAPARIN INJ 30 MG/0.3 ML SYR SQ SCH (07:43)
[2025-04-14] MEDS: ASPIRIN 81 MG ECTAB PO SCH (07:46)
[2025-04-14] MEDS: DONEPEZIL HCL 10 MG TAB PO SCH (07:46)
[2025-04-14] MEDS: CHOLECALCIFEROL 25 MCG (1000 UNITS) TAB PO SCH (07:46)
--- NOTE | 2025-04-14 08:23 | Communication Note ---
Date of Service: April 14, 2025 Around midnightpatient became tachypneic, HR 150 requiring 100% fio2 on bipap. Critical care saw her. repeat lactic acid at that time was 2.7. gave a dose of iv lasix 20mg. reduced maintenance fluids to 75ml/hr. Nurses suctioned lot of stuff from airway and then she much improved. tachypnea and tachycardia resolved and requiring less fio2. During the episode patinet had some blood per rectum(ischemia?).Patient on zosyn and azithromycin. Iv vanco added as mrsa sceen was positive. Surgery consulted.Hemodynamics ok currently.Notified son in am.Notified Am providers.
--- NOTE | 2025-04-14 08:41 | Surgery Consultation ---
Date of Consultation April 14, 2025 Assessment & Plan (1) Pneumonia: (2) Acute hypoxic respiratory failure: (3) Nausea & vomiting: (4) Ischemic colitis: 79 yo female with Dementia and nonverbal presented to ED from alf facility after episode of vomiting with CPAP and episode of hypoxia with multif ocal pneumonia and CT scan concerning for pancolitis, likely ischemic of sigmoid colon. Leukocytosis 37k --> 32k. Lactate stable at 2.7 from 6.0. Abdomen slightly distended but not rigid, no peritonitis, exam limited however as patient nonverbal. Plan: No acute surgical intervention recommendation Conservative management : npo, bowel rest, broad spectrum abx, and gentle IV fluids to help perfuse bowel given respiratory status Continue medical management Discussed with Dr. Campbell who evaluate patient separately, agrees with above. History of Present Illness Reason for Consultation: Ischemic Colitis Requesting Physician: GELY Henley Attending Physician: Jose Sanabria MD History of Present Illness Sil is a 79 yo female with history of severe dementia, HTN, chronic kidney disease, DVT, Anemia, c. diff colitis, pulmonary embolism, who was sent to ED by her alf facility s/p vomiting with CPAP 1. 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 History obtained by chart. The patient was being treated for community-acquired pneumonia with Augmentin since 04/02. She had blood bowel movement last evening and CT scan showing diffuse colitis of colon with mucosal hyperenhancement of sigmoid colon concerning for colitis, likely ischemic secondary to severe sepsis. Leukocytosis of 37k on admission and lactate of 6.0 initially now down to 2.7 and stable at 2.7. Allergies Allergy/AdvReac Type Severity Reaction Status Date / Time No Known Allergies Allergy Verified 04/13/25 13:29 Home Medications Medication Instructions Recorded Confirmed Type aspirin 81 mg tablet,delayed 81 mg PO QAM 08/27/18 04/13/25 History release cholecalciferol (vitamin D3) 25 1,000 unit PO QAM 08/27/18 04/13/25 History mcg (1,000 unit) capsule (Vitamin D3) donepezil 10 mg tablet 10 mg PO QAM 08/27/18 04/13/25 History lisinopril 20 mg tablet 20 mg PO BID 08/27/18 04/13/25 History melatonin 1 mg tablet 2 mg PO HS 08/27/18 04/13/25 History simvastatin 20 mg tablet 20 mg PO QPM 08/27/18 04/13/25 History venlafaxine 37.5 mg 37.5 mg PO QAM 08/27/18 04/13/25 History capsule,extended release 24 hr amlodipine 2.5 mg tablet 2.5 mg PO QAM 04/27/20 04/13/25 History famotidine 20 mg tablet 20 mg PO BID 03/02/21 04/13/25 History acetaminophen 325 mg tablet 650 mg PO Q4H PRN Fever 04/13/25 04/13/25 History acetaminophen 325 mg tablet 650 mg PO Q4H PRN Pain 04/13/25 04/13/25 History bisacodyl 10 mg rectal suppository 10 mg AK DAILY PRN Constipation 04/13/25 04/13/25 History guaifenesin 100 mg/5 mL oral liquid 200 mg PO Q4H PRN Cough 04/13/25 04/13/25 History ipratropium 0.5 mg-albuterol 3 mg 3 ml inhalation QID Pneumonia 04/13/25 04/13/25 History (2.5 mg base)/3 mL nebulization soln levothyroxine 75 mcg tablet 75 mcg PO QAM 04/13/25 04/13/25 History magnesium hydroxide 400 mg/5 mL 2,400 mg PO DAILY PRN Constipation 04/13/25 04/13/25 History oral suspension (Milk of Magnesia) memantine 10 mg tablet 10 mg PO BID 04/13/25 04/13/25 History omeprazole 20 mg capsule,delayed 20 mg PO BID 04/13/25 04/13/25 History release psyllium husk 3.4 gram/5.4 gram 1 tsp PO QAM 04/13/25 04/13/25 History oral powder (Metamucil) Patient History Medical History Vomiting Witnessed episode of apnea Snoring Seizure-like activity Nocturnal hypoxia Mild sleep apnea Fatigue Alzheimer's dementia Diverticulitis C. difficile colitis Dementia Pulmonary embolism DVT (deep venous thrombosis) Hypertension Thyroid disease Dementia Surgical History Hx of hysterectomy Family History Mother No pertinent family history Father No pertinent family history Family/Other No pertinent family history Other Family history of heart disease Family history of stroke Social History Smoking Status: Unknown if ever smoked Second Hand Exposure: No; Do You Dip or Chew Tobacco: No; Hx Alcohol Use: No Hx Substance Use: No Preferred Language: Moroccan Communication Ability: Impaired Communication Ability Comment: Son with pt. Communication Tools: Facial Expression and Physical Gestures Assistant Spa Manager Required: No Beliefs That Will Affect Care: None Current Living Situation: Correction Current Living Situation Comment: skilled current occupational status: retired other: Minimally verbal, occasional delusions, ambulatory dysfunction d/t dementia Feels Safe at Home: Yes Diet Comment: high fiber caffeine: No Gender Identity: Female Assistive Devices: Wheelchair Review of Systems Review of Systems: Unobtainable due to cognitive status Physical Exam Constitutional: + obese, + altered mental status and + l ethargic; no acute distress elderly female , BIPAP in place, eyes closed Gastrointestinal (Abdomen): Inspection/Auscultation: + abdomen distended (mild) Percussion/Palpation: abdomen soft; abdomen nontender, no guarding, abdomen not rigid and abdomen not firm Skin: no rashes, warm and dry Results & Data Vital Signs (Past 12 Hours) Vital Signs Temp Pulse Pulse Resp BP Pulse Ox O2 Del Method 04/14/25 08:00 36.9 C 108 H 18 145/75 H 96 BiPAP 04/14/25 07:01 129 H 24 92 04/14/25 07:01 129 H 24 92 BiPAP 04/14/25 02:55 120 H 21 97 04/14/25 02:55 120 H 21 97 BiPAP 04/14/25 02:42 37.1 C 119 H 20 102/64 95 BiPAP 04/13/25 22:40 36.8 C 121 H 18 150/87 H 95 BiPAP 04/13/25 22:15 118 H 25 H 95 04/13/25 22:15 118 H 25 H 95 BiPAP 04/13/25 21:44 119 H FiO2 04/14/25 08:00 04/14/25 07:01 40 04/14/25 07:01 40 04/14/25 02:55 50 04/14/25 02:55 50 04/14/25 02:42 04/13/25 22:40 04/13/25 22:15 35 04/13/25 22:15 35 04/13/25 21:44 Laboratory Results 04/14/25 04/14/25 04/14/25 Range/Units 06:30 05:29 01:10 WBC 32.50 H* (4.8-10.8) K/ul RBC 3.55 L (4.20-5.40) M/uL Hgb 10.6 L D (12.0-16.0) g/dl POC Hgb (12.0-16.0) g/dl Hct 33.1 L (37.0-47.0) % POC Hct (37-47) % MCV 93.2 (80.0-100.0) fL MCH 29.9 (25.0-34.0) pg MCHC 32.0 (32.0-36.0) g/dL RDW Std Deviation 51.2 H (36.4-46.3) fL RDW Coeff of Fabiano 14.9 H (11.5-14.5) % Plt Count 283 (130-400) K/uL MPV 10.4 (9.4-12.4) fL Immature Gran % (Auto) 2.8 % Neut % (Auto) 90.0 % Lymph % (Auto) 2.9 % [place] % (Auto) 3.9 % Eos % (Auto) 0.1 % Baso % (Auto) 0.3 % Neut # (Auto) 29.28 H (1.40-6.50) K/uL Lymph # (Auto) 0.94 L (1.20-3.40) K/uL [place] # (Auto) 1.27 H (0.11-0.59) K/uL Eos # (Auto) 0.02 (0.00-0.50) K/uL Baso # (Auto) 0.09 (0.00-0.20) K/uL Immature Gran # (Auto) 0.90 H (0.01-0.20) K/uL POC pH (7.35-7.45) POC pCO2 (35-46) mmHg POC pO2 (80-95) mmHg POC HCO3 (19-24) lena/L POC Total CO2 (24-31) mmol/L POC Base Excess (-9-1.8) lena/L POC ABG O2 Sat (90-95) % POC Sodium (135-144) mmol/L Sodium 139 (136-145) mmol/L POC Potassium (3.3-5.0) mmol/L Potassium 3.8 (3.5-5.1) mmol/L Chloride 104 (98-107) mmol/L Carbon Dioxide 23 (21-32) mmol/L Anion Gap 12 H (3-11) BUN 17 (6-23) mg/dl Creatinine 0.93 (0.6-1.2) mg/dl Est Cr Clr Drug Dosing 40.6 ml/min eGFR 62.91 BUN/Creatinine Ratio 18.3 (10-20) Glucose 288 H (70-99(Fasting)) mg/dl POC Glucose 186 H (70-99) mg/dl Lactate 2.7 H* 2.7 H* (0.4-2.0) mmol/L Calcium 8.4 L (8.6-10.3) mg/dl Total Bilirubin 0.7 (0.2-1.0) mg/dl AST 41 H (13-39) U/L ALT 38 (7-52) U/L Alkaline Phosphatase 73 (34-104) U/L B-Natriuretic Peptide (0-100) pg/ml Total Protein 5.6 L (6.0-8.3) gm/dl Albumin 2.8 L (3.4-5.0) gm/dl Globulin 2.8 (2.5-4.0) gm/dl Albumin/Globulin Ratio 1.0 (0.9-2) Urine Color Urine Appearance (Clear) Urine pH (4.5-7.5) Ur Specific [place] (1.000-1.030) Urine Protein (Negative) Urine Glucose (UA) (Negative) Urine Ketones (Negative) Urine Blood (Negative) Urine Nitrite (Negative) Urine Bilirubin (Negative) Urine Urobilinogen (Negative) Ur Leukocyte Esterase (Negative) Urine WBC (Auto) (0-5) /hpf Urine RBC (Auto) (0-2) /hpf U Hyaline Cast (Auto) (0-2) /lpf U Epithel Cells (Auto) (0-2) /hpf Urine Bacteria (Auto) (None Seen) Urine Comment Nasal Screen MRSA (PCR) (Negative) Adenovirus (PCR) (NotDetected) B. pertussis DNA (PCR) (NotDetected) B.parapertussis DNA PCR (NotDetected) C. pneumoniae DNA (PCR) (NotDetected) Coronavirus OC43 (PCR) (NotDetected) Coronavirus HKU1 (PCR) (NotDetected) Coronavirus 229E (PCR) (NotDetected) SARS-CoV-2 (PCR) (NotDetected) Coronavirus NL63 (PCR) (NotDetected) Human Metapneumovir PCR (NotDetected) Influenza Type A (PCR) (NotDetected) Influenza Type B (PCR) (NotDetected) Urine Legionella Ag M. pneumoniae (PCR) (NotDetected) Parainfluenza 1 (PCR) (NotDetected) Parainfluenza 2 (PCR) (NotDetected) Parainfluenza 3 (PCR) (NotDetected) Parainfluenza 4 (PCR) (NotDetected) RSV (PCR) (NotDetected) Entero/Rhino (PCR) (NotDetected) 04/14/25 04/13/25 04/13/25 Range/Units 01:02 22:51 20:12 WBC (4.8-10.8) K/ul RBC (4.20-5.40) M/uL Hgb (12.0-16.0) g/dl POC Hgb 11.9 L (12.0-16.0) g/dl Hct (37.0-47.0) % POC Hct 35 L (37-47) % MCV (80.0-100.0) fL MCH (25.0-34.0) pg MCHC (32.0-36.0) g/dL RDW Std Deviation (36.4-46.3) fL RDW Coeff of Fabiano (11.5-14.5) % Plt Count (130-400) K/uL MPV (9.4-12.4) fL Immature Gran % (Auto) % Neut % (Auto) % Lymph % (Auto) % [place] % (Auto) % Eos % (Auto) % Baso % (Auto) % Neut # (Auto) (1.40-6.50) K/uL Lymph # (Auto) (1.20-3.40) K/uL [place] # (Auto) (0.11-0.59) K/uL Eos # (Auto) (0.00-0.50) K/uL Baso # (Auto) (0.00-0.20) K/uL Immature Gran # (Auto) (0.01-0.20) K/uL POC pH 7.34 L (7.35-7.45) POC pCO2 38 (35-46) mmHg POC pO2 138 H (80-95) mmHg POC HCO3 21 (19-24) lena/L POC Total CO2 22 L (24-31) mmol/L POC Base Excess -5.0 (-9-1.8) lena/L POC ABG O2 Sat 99.0 H (90-95) % POC Sodium 139 (135-144) mmol/L Sodium (136-145) mmol/L POC Potassium 3.9 (3.3-5.0) mmol/L Potassium (3.5-5.1) mmol/L Chloride (98-107) mmol/L Carbon Dioxide (21-32) mmol/L Anion Gap (3-11) BUN (6-23) mg/dl Creatinine (0.6-1.2) mg/dl Est Cr Clr Drug Dosing ml/min eGFR BUN/Creatinine Ratio (10-20) Glucose (70-99(Fasting)) mg/dl POC Glucose (70-99) mg/dl Lactate 3.1 H* 3.6 H* (0.4-2.0) mmol/L Calcium (8.6-10.3) mg/dl Total Bilirubin (0.2-1.0) mg/dl AST (13-39) U/L ALT (7-52) U/L Alkaline Phosphatase (34-104) U/L B-Natriuretic Peptide (0-100) pg/ml Total Protein (6.0-8.3) gm/dl Albumin (3.4-5.0) gm/dl Globulin (2.5-4.0) gm/dl Albumin/Globulin Ratio (0.9-2) Urine Color Urine Appearance (Clear) Urine pH (4.5-7.5) Ur Specific [place] (1.000-1.030) Urine Protein (Negative) Urine Glucose (UA) (Negative) Urine Ketones (Negative) Urine Blood (Negative) Urine Nitrite (Negative) Urine Bilirubin (Negative) Urine Urobilinogen (Negative) Ur Leukocyte Esterase (Negative) Urine WBC (Auto) (0-5) /hpf Urine RBC (Auto) (0-2) /hpf U Hyaline Cast (Auto) (0-2) /lpf U Epithel Cells (Auto) (0-2) /hpf Urine Bacteria (Auto) (None Seen) Urine Comment Nasal Screen MRSA (PCR) (Negative) Adenovirus (PCR) (NotDetected) B. pertussis DNA (PCR) (NotDetected) B.parapertussis DNA PCR (NotDetected) C. pneumoniae DNA (PCR) (NotDetected) Coronavirus OC43 (PCR) (NotDetected) Coronavirus HKU1 (PCR) (NotDetected) Coronavirus 229E (PCR) (NotDetected) SARS-CoV-2 (PCR) (NotDetected) Coronavirus NL63 (PCR) (NotDetected) Human Metapneumovir PCR (NotDetected) Influenza Type A (PCR) (NotDetected) Influenza Type B (PCR) (NotDetected) Urine Legionella Ag M. pneumoniae (PCR) (NotDetected) Parainfluenza 1 (PCR) (NotDetected) Parainfluenza 2 (PCR) (NotDetected) Parainfluenza 3 (PCR) (NotDetected) Parainfluenza 4 (PCR) (NotDetected) RSV (PCR) (NotDetected) Entero/Rhino (PCR) (NotDetected) 04/13/25 04/13/25 04/13/25 Range/Units 18:16 16:03 15:06 WBC (4.8-10.8) K/ul RBC (4.20-5.40) M/uL Hgb (12.0-16.0) g/dl POC Hgb (12.0-16.0) g/dl Hct (37.0-47.0) % POC Hct (37-47) % MCV (80.0-100.0) fL MCH (25.0-34.0) pg MCHC (32.0-36.0) g/dL RDW Std Deviation (36.4-46.3) fL RDW Coeff of Fabiano (11.5-14.5) % Plt Count (130-400) K/uL MPV (9.4-12.4) fL Immature Gran % (Auto) % Neut % (Auto) % Lymph % (Auto) % [place] % (Auto) % Eos % (Auto) % Baso % (Auto) % Neut # (Auto) (1.40-6.50) K/uL Lymph # (Auto) (1.20-3.40) K/uL [place] # (Auto) (0.11-0.59) K/uL Eos # (Auto) (0.00-0.50) K/uL Baso # (Auto) (0.00-0.20) K/uL Immature Gran # (Auto) (0.01-0.20) K/uL POC pH (7.35-7.45) POC pCO2 (35-46) mmHg POC pO2 (80-95) mmHg POC HCO3 (19-24) lena/L POC Total CO2 (24-31) mmol/L POC Base Excess (-9-1.8) lena/L POC ABG O2 Sat (90-95) % POC Sodium (135-144) mmol/L Sodium (136-145) mmol/L POC Potassium (3.3-5.0) mmol/L Potassium (3.5-5.1) mmol/L Chloride (98-107) mmol/L Carbon Dioxide (21-32) mmol/L Anion Gap (3-11) BUN (6-23) mg/dl Creatinine (0.6-1.2) mg/dl Est Cr Clr Drug Dosing ml/min eGFR BUN/Creatinine Ratio (10-20) Glucose (70-99(Fasting)) mg/dl POC Glucose 165 H (70-99) mg/dl Lactate 6.0 H* (0.4-2.0) mmol/L Calcium (8.6-10.3) mg/dl Total Bilirubin (0.2-1.0) mg/dl AST (13-39) U/L ALT (7-52) U/L Alkaline Phosphatase (34-104) U/L B-Natriuretic Peptide (0-100) pg/ml Total Protein (6.0-8.3) gm/dl Albumin (3.4-5.0) gm/dl Globulin (2.5-4.0) gm/dl Albumin/Globulin Ratio (0.9-2) Urine Color Yellow Urine Appearance Clear (Clear) Urine pH 6.0 (4.5-7.5) Ur Specific [place] 1.021 (1.000-1.030) Urine Protein Trace H (Negative) Urine Glucose (UA) Negative (Negative) Urine Ketones Trace H (Negative) Urine Blood Negative (Negative) Urine Nitrite Negative (Negative) Urine Bilirubin Negative (Negative) Urine Urobilinogen Negative (Negative) Ur Leukocyte Esterase Trace H (Negative) Urine WBC (Auto) 6-10 H (0-5) /hpf Urine RBC (Auto) 0-2 (0-2) /hpf U Hyaline Cast (Auto) 0-2 (0-2) /lpf U Epithel Cells (Auto) 3-5 H (0-2) /hpf Urine Bacteria (Auto) None Seen (None Seen) Urine Comment Nasal Screen MRSA (PCR) (Negative) Adenovirus (PCR) (NotDetected) B. pertussis DNA (PCR) (NotDetected) B.parapertussis DNA PCR (NotDetected) C. pneumoniae DNA (PCR) (NotDetected) Coronavirus OC43 (PCR) (NotDetected) Coronavirus HKU1 (PCR) (NotDetected) Coronavirus 229E (PCR) (NotDetected) SARS-CoV-2 (PCR) (NotDetected) Coronavirus NL63 (PCR) (NotDetected) Human Metapneumovir PCR (NotDetected) Influenza Type A (PCR) (NotDetected) Influenza Type B (PCR) (NotDetected) Urine Legionella Ag Pending M. pneumoniae (PCR) (NotDetected) Parainfluenza 1 (PCR) (NotDetected) Parainfluenza 2 (PCR) (NotDetected) Parainfluenza 3 (PCR) (NotDetected) Parainfluenza 4 (PCR) (NotDetected) RSV (PCR) (NotDetected) Entero/Rhino (PCR) (NotDetected) 04/13/25 04/13/25 04/13/25 Range/Units 14:00 12:43 10:55 WBC (4.8-10.8) K/ul RBC (4.20-5.40) M/uL Hgb (12.0-16.0) g/dl POC Hgb 12.2 (12.0-16.0) g/dl Hct (37.0-47.0) % POC Hct 36 L (37-47) % MCV (80.0-100.0) fL MCH (25.0-34.0) pg MCHC (32.0-36.0) g/dL RDW Std Deviation (36.4-46.3) fL RDW Coeff of Fabiano (11.5-14.5) % Plt Count (130-400) K/uL MPV (9.4-12.4) fL Immature Gran % (Auto) % Neut % (Auto) % Lymph % (Auto) % [place] % (Auto) % Eos % (Auto) % Baso % (Auto) % Neut # (Auto) (1.40-6.50) K/uL Lymph # (Auto) (1.20-3.40) K/uL [place] # (Auto) (0.11-0.59) K/uL Eos # (Auto) (0.00-0.50) K/uL Baso # (Auto) (0.00-0.20) K/uL Immature Gran # (Auto) (0.01-0.20) K/uL POC pH 7.35 (7.35-7.45) POC pCO2 29 L (35-46) mmHg POC pO2 63 L (80-95) mmHg POC HCO3 16 L (19-24) lena/L POC Total CO2 17 L (24-31) mmol/L POC Base Excess -10.0 L (-9-1.8) lena/L POC ABG O2 Sat 91.0 (90-95) % POC Sodium 141 (135-144) mmol/L Sodium (136-145) mmol/L POC Potassium 4.2 (3.3-5.0) mmol/L Potassium (3.5-5.1) mmol/L Chloride (98-107) mmol/L Carbon Dioxide (21-32) mmol/L Anion Gap (3-11) BUN (6-23) mg/dl Creatinine (0.6-1.2) mg/dl Est Cr Clr Drug Dosing ml/min eGFR BUN/Creatinine Ratio (10-20) Glucose (70-99(Fasting)) mg/dl POC Glucose (70-99) mg/dl Lactate 5.4 H* (0.4-2.0) mmol/L Calcium (8.6-10.3) mg/dl Total Bilirubin (0.2-1.0) mg/dl AST (13-39) U/L ALT (7-52) U/L Alkaline Phosphatase (34-104) U/L B-Natriuretic Peptide (0-100) pg/ml Total Protein (6.0-8.3) gm/dl Albumin (3.4-5.0) gm/dl Globulin (2.5-4.0) gm/dl Albumin/Globulin Ratio (0.9-2) Urine Color Urine Appearance (Clear) Urine pH (4.5-7.5) Ur Specific [place] (1.000-1.030) Urine Protein (Negative) Urine Glucose (UA) (Negative) Urine Ketones (Negative) Urine Blood (Negative) Urine Nitrite (Negative) Urine Bilirubin (Negative) Urine Urobilinogen (Negative) Ur Leukocyte Esterase (Negative) Urine WBC (Auto) (0-5) /hpf Urine RBC (Auto) (0-2) /hpf U Hyaline Cast (Auto) (0-2) /lpf U Epithel Cells (Auto) (0-2) /hpf Urine Bacteria (Auto) (None Seen) Urine Comment Nasal Screen MRSA (PCR) Positive A (Negative) Adenovirus (PCR) Not Detected (NotDetected) B. pertussis DNA (PCR) Not Detected (NotDetected) B.parapertussis DNA PCR Not Detected (NotDetected) C. pneumoniae DNA (PCR) Not Detected (NotDetected) Coronavirus OC43 (PCR) Not Detected (NotDetected) Coronavirus HKU1 (PCR) Not Detected (NotDetected) Coronavirus 229E (PCR) Not Detected (NotDetected) SARS-CoV-2 (PCR) Not Detected (NotDetected) Coronavirus NL63 (PCR) Not Detected (NotDetected) Human Metapneumovir PCR Not Detected (NotDetected) Influenza Type A (PCR) Not Detected (NotDetected) Influenza Type B (PCR) Not Detected (NotDetected) Urine Legionella Ag M. pneumoniae (PCR) Not Detected (NotDetected) Parainfluenza 1 (PCR) Not Detected (NotDetected) Parainfluenza 2 (PCR) Not Detected (NotDetected) Parainfluenza 3 (PCR) Not Detected (NotDetected) Parainfluenza 4 (PCR) Not Detected (NotDetected) RSV (PCR) Not Detected (NotDetected) Entero/Rhino (PCR) DETECTED A (NotDetected) 04/13/25 Range/Units 10:09 WBC (4.8-10.8) K/ul RBC (4.20-5.40) M/uL Hgb (12.0-16.0) g/dl POC Hgb (12.0-16.0) g/dl Hct (37.0-47.0) % POC Hct (37-47) % MCV (80.0-100.0) fL MCH (25.0-34.0) pg MCHC (32.0-36.0) g/dL RDW Std Deviation (36.4-46.3) fL RDW Coeff of Fabiano (11.5-14.5) % Plt Count (130-400) K/uL MPV (9.4-12.4) fL Immature Gran % (Auto) % Neut % (Auto) % Lymph % (Auto) % [place] % (Auto) % Eos % (Auto) % Baso % (Auto) % Neut # (Auto) (1.40-6.50) K/uL Lymph # (Auto) (1.20-3.40) K/uL [place] # (Auto) (0.11-0.59) K/uL Eos # (Auto) (0.00-0.50) K/uL Baso # (Auto) (0.00-0.20) K/uL Immature Gran # (Auto) (0.01-0.20) K/uL POC pH (7.35-7.45) POC pCO2 (35-46) mmHg POC pO2 (80-95) mmHg POC HCO3 (19-24) lena/L POC Total CO2 (24-31) mmol/L POC Base Excess (-9-1.8) lena/L POC ABG O2 Sat (90-95) % POC Sodium (135-144) mmol/L Sodium (136-145) mmol/L POC Potassium (3.3-5.0) mmol/L Potassium (3.5-5.1) mmol/L Chloride (98-107) mmol/L Carbon Dioxide (21-32) mmol/L Anion Gap (3-11) BUN (6-23) mg/dl Creatinine (0.6-1.2) mg/dl Est Cr Clr Drug Dosing ml/min eGFR BUN/Creatinine Ratio (10-20) Glucose (70-99(Fasting)) mg/dl POC Glucose (70-99) mg/dl Lactate (0.4-2.0) mmol/L Calcium (8.6-10.3) mg/dl Total Bilirubin (0.2-1.0) mg/dl AST (13-39) U/L ALT (7-52) U/L Alkaline Phosphatase (34-104) U/L B-Natriuretic Peptide 8 (0-100) pg/ml Total Protein (6.0-8.3) gm/dl Albumin (3.4-5.0) gm/dl Globulin (2.5-4.0) gm/dl Albumin/Globulin Ratio (0.9-2) Urine Color Urine Appearance (Clear) Urine pH (4.5-7.5) Ur Specific [place] (1.000-1.030) Urine Protein (Negative) Urine Glucose (UA) (Negative) Urine Ketones (Negative) Urine Blood (Negative) Urine Nitrite (Negative) Urine Bilirubin (Negative) Urine Urobilinogen (Negative) Ur Leukocyte Esterase (Negative) Urine WBC (Auto) (0-5) /hpf Urine RBC (Auto) (0-2) /hpf U Hyaline Cast (Auto) (0-2) /lpf U Epithel Cells (Auto) (0-2) /hpf Urine Bacteria (Auto) (None Seen) Urine Comment Nasal Screen MRSA (PCR) (Negative) Adenovirus (PCR) (NotDetected) B. pertussis DNA (PCR) (NotDetected) B.parapertussis DNA PCR (NotDetected) C. pneumoniae DNA (PCR) (NotDetected) Coronavirus OC43 (PCR) (NotDetected) Coronavirus HKU1 (PCR) (NotDetected) Coronavirus 229E (PCR) (NotDetected) SARS-CoV-2 (PCR) (NotDetected) Coronavirus NL63 (PCR) (NotDetected) Human Metapneumovir PCR (NotDetected) Influenza Type A (PCR) (NotDetected) Influenza Type B (PCR) (NotDetected) Urine Legionella Ag M. pneumoniae (PCR) (NotDetected) Parainfluenza 1 (PCR) (NotDetected) Parainfluenza 2 (PCR) (NotDetected) Parainfluenza 3 (PCR) (NotDetected) Parainfluenza 4 (PCR) (NotDetected) RSV (PCR) (NotDetected) Entero/Rhino (PCR) (NotDetected) Diagnostic Findings EXAMINATION: CT of the abdomen and pelvis performed after the administration of IV contrast TECHNIQUE: Helical CT images from the lung bases through the symphysis pubis were obtained with contrast. Coronal and sagittal reformatted images were generated at a workstation for further assessment. Dose reduction techniques were achieved by using automatic exposure control and/or adjustment of mA and/or kV according to patient size and/or use of iterative reconstruction technique. COMPARISON: April 04, 2021 HISTORY: Abdominal pain FINDINGS: Liver: No suspicious liver lesions. Portal veins appear patent. Gallbladder: No gallstones. No evidence of acute cholecystitis. Spleen: Normal size. Pancreas: No suspicious pancreatic lesions. The pancreatic duct is not dilated. Adrenal glands: No adrenal nodules. Kidneys: No hydronephrosis or obstructing renal stones. Bladder / Pelvic organs: A [place] catheter is in place decompressing the urinary bladder. Mild free pelvic fluid. Bowel: No bowel obstruction. There is diffuse prominent wall thickening involving the large bowel. The sigmoid colon demonstrates mucosal hyperenhancement. The appendix is unremarkable. Diverticulosis without diverticulitis. Lymph nodes: No retroperitoneal, mesenteric, or pelvic lymphadenopathy. Peritoneum / Retroperitoneum: No free fluid or air within the abdomen. Vessels: No infrarenal aortic aneurysm. Bones and soft tissues: No suspicious lesion in the bones. Chronic deformity inferior right pubic ramus. IMPRESSION: Diffuse prominent wall thickening of the large bowel, suggestive of colitis. Electronically signed by Dusty Biggs 04-13-2025 6:18 PM (1) Pneumonia Laterality: bilateral Lung location: lower lobe of lung Pneumonia type: due to unspecified organism Qualified Code(s): J18.9 - Pneumonia, unspecified organism
--- NOTE | 2025-04-14 09:02 | Pulmonology Progress Note ---
Date of Service April 14, 2025 Assessment & Plan (1) Acute pneumonia: Plan: Viral panel positive for rhinovirus. urine Legionella antigen pending. MRSA screen positive. Agree with Zosyn and vancomycin. Continue azithromycin as well. Chest CT reviewed with multifocal pneumonia. No obvious evidence of mucous plugging or pulmonary abscess. (2) Acute respiratory failure with hypoxia: Plan: Continue wean supplemental oxygen as able. Transition off BiPAP to high flow nasal cannula. (3) Nausea & vomiting: Plan: CT abdomen pelvis consistent with probable ischemic colitis. Appreciate general surgery consultation. Lactic acidosis improving. Zosyn should cover for colitis as well. (4) Dementia: Plan: Patient with advanced dementia and is nonverbal at baseline. CODE STATUS discussed with the patient's son who indicates that he would want his mother to be a full code in the event of a cardiopulmonary arrest. 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 Dementia behavioral disturbance: without behavioral disturbance Dementia type: unspecified type Qualified Code(s): F03.90 - Unspecified dementia without behavioral disturbance (5) Firmness of abdomen: Plan: CT abdomen/pelvis results as above. Plan Pulmonary to continue to follow. Thank you for the consult. Plan of care discussed with the bedside RN and patient. I spent 15 minutes reviewing the electronic medical record/relevant imaging, 15 minutes discussing diagnosis and treatment plan with patient/family, and 12 minutes discussing care plan with ancillary staff such as RT/RN/pharmacist/airplane woodworker/PT/OT/other consulting medical services. Admission and Anticipated Discharge Date Admission Date: April 13, 2025 Subjective Patient remains drowsy and on BiPAP support. Hemodynamically she is stable. Review of Systems Review of Systems: Unobtainable due to cognitive status Physical Exam Physical Exam: Constitutional: Elderly appearing female in mild distress. BiPAP mask in place. Opens eyes spontaneously. Eyes: Pupils are equal round and reactive to light. Conjunctivae are normal. Anicteric sclera. Ears nose, mouth and throat: Mallampati class unable to be classified. BiPAP mask in place. Neck: Trachea is midline. Visual inspection is normal. Respiratory: Diffuse rhonchi. Tachypneic. Cardiovascular: Tachycardic. Regular rhythm. No murmurs. No edema. Gastrointestinal: Mildly firm abdomen with tenderness to palpation in the left lower quadrant. Musculoskeletal: No cyanosis. Patient is able to move all extremities. Strength is 5 out of 5 in the upper and lower extremities. Skin: No rashes, warm dry and intact. Neurologic: No obvious focal neurological deficits seen. Psychiatric: Confused. Results & Data Results & Data Vital Signs (Past 12 Hours) Vital Signs Temp Pulse Pulse Resp BP Pulse Ox O2 Del Method 04/14/25 08:47 BiPAP 04/14/25 08:00 36.9 C 108 H 18 145/75 H 96 BiPAP 04/14/25 07:01 129 H 24 92 04/14/25 07:01 129 H 24 92 BiPAP 04/14/25 02:55 120 H 21 97 04/14/25 02:55 120 H 21 97 BiPAP 04/14/25 02:42 37.1 C 119 H 20 102/64 95 BiPAP 04/13/25 22:40 36.8 C 121 H 18 150/87 H 95 BiPAP 04/13/25 22:15 118 H 25 H 95 04/13/25 22:15 118 H 25 H 95 BiPAP 04/13/25 21:44 119 H FiO2 04/14/25 08:47 04/14/25 08:00 04/14/25 07:01 40 04/14/25 07:01 40 04/14/25 02:55 50 04/14/25 02:55 50 04/14/25 02:42 04/13/25 22:40 04/13/25 22:15 35 04/13/25 22:15 35 04/13/25 21:44 PG Care Time/CCT Total # of Minutes Spent Total Time Spent with Patient: Total time spent is greater than 50% in coordination of care (as documented) at patient's floor/unit and/or counseling patient: Coding Level of Care Code 37291 SUB INP/OBS CARE 2/35MIN Diagnoses Acute pneumonia J18.9 Acute respiratory failure with hypoxia J96.01 Nausea & vomiting R11.2 Dementia F03.90 Dementia behavioral disturbance: without behavioral disturbance Dementia type: unspecified type Firmness of abdomen R19.8 Time Spent (min) 42
--- NOTE | 2025-04-14 09:26 | Pharmacy Report ---
Pharmacy PK ABX Note - Date of Service April 14, 2025 - Assessment and Plan Assessment 79 year old F receiving Zosyn/azithromycin/vancomycin for treatment of Cap. Pertinent microbiologic data includes: Positive MRSA Nasal Swab, BLOOD cultures pending. Day # 1 of antimicrobial therapy. Plan Vancomycin * Loading dose: 1500 mg IV x 1 * Maintenance dose: 1250 mg IV every 24 hours * Regimen is predicted to achieve target AUC/PATRICA of 400-600 mg/L.hr * Random level ordered for: 04/16/25 with AM labs Pharmacy will continue to follow and will adjust dose/frequency as necessary. Thank you. Pharmacy has transitioned to AUC monitoring for vancomycin. AUC/PATRICA is the preferred PK/PD target and is associated with decreased risk of nephrotoxicity compared to traditional trough targets.
[2025-04-14] MEDS: VANCOMYCIN HCL 1,250 MG in SODIUM CHLORIDE 0.9% 250 ML IV SCH (13:10)
--- NOTE | 2025-04-14 13:10 | Hospitalist Progress Note ---
Date of Service April 14, 2025 Assessment & Plan (1) Witnessed episode of apnea: (2) Vomiting: (3) Alzheimer's dementia: (4) Hyperlipidemia: (5) Lactic acid increased: (6) Dementia: Plan The patient is a 79-year-old female who presented to the ED on 04/13/2025 s/p vomiting episode and hypoxia with suspected aspiration pneumonia Acute hypoxic respiratory failure Multifocal/aspiration pneumonia Sepsis H/O ADELA on CPAP -- Respiratory BioFire positive for enterorhinovirus --MRSA screen positive --Chest CTA:No evidence for pulmonary embolism. Multifocal pneumonia. --Blood Cultures:pending --Urine for Legionella pending -- Continue supplemental oxygen as needed --Continue vancomycin, Zosyn, azithromycin --Continue aspiration precautions --Speech eval when more awake --Appreciate pulmonology input Ischemic colitis Lactic acidosis Had rectal bleed on 04/13/2025 --CT ABD:Diffuse prominent wall thickening of the large bowel, suggestive of colitis. -- Continue bowel rest, Zosyn, IV fluids Appreciate surgery input Monitor CBC Consider to hold aspirin if recurrence of rectal bleed Acute metabolic encephalopathy:POA Secondary to above Hx dementia: Continue donepezil/Namenda Hx HLD/HTN: Hold amlodipine, lisinopril Continue statin Monitor blood pressure Hx hypothyroidism: Continue levothyroxine Hyperglycemia Likely secondary to IV fluids Check HbA1c DVT Px Lovenox SQ: held due to rectal bleed SCDs for now CODE STATUS Full code as per patient's son Admission and Anticipated Discharge Date Admission Date: April 13, 2025 Subjective Patient is seen and examined at bedside Obtained during my encounter, unable to obtain any history Patient was noted to have bloody bowel movement overnight Patient's respiratory status also declined overnight requiring her to be placed on BiPAP BiPAP this morning which was later transitioned to OxyMask Discussed extensively about patient's condition with patient's son at bedside No distress on exam Also discussed with surgery today Review of Systems Review of Systems: Unobtainable due to reduced consciousness Physical Exam Physical Exam: Physical Exam: Vitals signs as noted above General Appearance:Moderately built and nourished, no apparent distress, obtunded Head: normocephalic, Atraumatic Eyes: normal inspection Neck: supple, Trachea midline Respiratory/Chest: Coarse breath sounds, b/l rhonchi, No accessory muscle use Cardiovascular: S1, S2, No murmur Abdomen/GI:Soft, mildly distended, non tender, Bowel sounds present Extremities/Musculoskeletal:normal inspection, 1+ edema Neurologic/Psych:Obtunded, unable to perform complete neurological exam Skin: normal color, warm Results & Data Results & Data Vital Signs (Past 12 Hours) Vital Signs Temp Pulse Pulse Resp BP Pulse Ox O2 Del Method 04/14/25 12:00 36.7 C 97 H 16 138/77 97 BiPAP 04/14/25 11:13 116 H 24 96 04/14/25 11:13 117 H 26 H 96 BiPAP 04/14/25 08:47 BiPAP 04/14/25 08:00 36.9 C 108 H 18 145/75 H 96 BiPAP 04/14/25 07:01 129 H 24 92 04/14/25 07:01 129 H 24 92 BiPAP 04/14/25 02:55 120 H 21 97 04/14/25 02:55 120 H 21 97 BiPAP 04/14/25 02:42 37.1 C 119 H 20 102/64 95 BiPAP FiO2 04/14/25 12:00 04/14/25 11:13 40 04/14/25 11:13 40 04/14/25 08:47 04/14/25 08:00 04/14/25 07:01 40 04/14/25 07:01 40 04/14/25 02:55 50 04/14/25 02:55 50 04/14/25 02:42 Laboratory Results Short CBC 04/14/25 Range/Units 05:29 WBC 32.50 H* (4.8-10.8) K/ul Hgb 10.6 L D (12.0-16.0) g/dl Hct 33.1 L (37.0-47.0) % Plt Count 283 (130-400) K/uL BMP 04/14/25 05:29 Sodium 139 Potassium 3.8 Chloride 104 Carbon Dioxide 23 BUN 17 Creatinine 0.93 Glucose 288 H Calcium 8.4 L Liver Function 04/14/25 Range/Units 05:29 Total Bilirubin 0.7 (0.2-1.0) mg/dl AST 41 H (13-39) U/L ALT 38 (7-52) U/L Alkaline Phosphatase 73 (34-104) U/L Albumin 2.8 L (3.4-5.0) gm/dl Urine 04/13/25 Range/Units 16:03 Urine Color Yellow Urine Appearance Clear (Clear) Urine pH 6.0 (4.5-7.5) Ur Specific [place] 1.021 (1.000-1.030) Urine Protein Trace H (Negative) Urine Glucose (UA) Negative (Negative) (2) Vomiting Nausea presence: unspecified Vomiting Intractability: unspecified Vomiting type: unspecified Qualified Code(s): R11.10 - Vomiting, unspecified (6) Dementia Dementia type: unspecified type Dementia behavioral disturbance: without behavioral disturbance Qualified Code(s): F03.90 - Unspecified dementia without behavioral disturbance
[2025-04-14] MEDS ORDERED: VANCOMYCIN HCL 1,000 MG/270 ML BAG IV SCH (14:00)
--- NOTE | 2025-04-14 17:42 | Electrocardiogram Report ---
Test Reason : Blood Pressure : */* mmHG Vent. Rate : 119 BPM Atrial Rate : 119 BPM P-R Int : 144 ms QRS Dur : 74 ms QT Int : 330 ms P-R-T Axes : 66 37 56 degrees QTcB Int : 464 ms Sinus tachycardia Otherwise normal ECG When compared with ECG of 13-Apr-2025 10:02, Criteria for Inferior infarct are no longer Present Nonspecific T wave abnormality no longer evident in Inferior leads Nonspecific T wave abnormality now evident in Anterior leads Confirmed by Dusty Zapien ([id number]) on 04/14/2025 5:42:05 PM Referred By: REFERRED SELF Confirmed By: Dusty Zapien
[2025-04-15 06:30] LABS: Hematocrit (blood only) 30.1 % (37.0-47.0); Hemoglobin 9.9 g/dl (12.0-16.0); Mean Corpuscular Hemoglobin 29.9 pg (25.0-34.0); Mean Corpuscular Volume 90.9 fL (80.0-100.0); Platelet Count 211 K/uL (130-400); RDW Standard Deviation 48.3 fL (36.4-46.3); Red Blood Count 3.31 M/uL (4.20-5.40); White Blood Count 26.41 K/ul (4.8-10.8)
[2025-04-15 07:02] LABS: Anion Gap 6.0 (3-11); Blood Urea Nitrogen 12.0 mg/dl (6-23); Calcium 8.7 mg/dl (8.6-10.3); Carbon Dioxide 26.0 mmol/L (21-32); Chloride 107.0 mmol/L (98-107); Creatinine Clr Calc Pharmacy 47.1 ml/min; Glucose 138.0 mg/dl (70-99(Fasting)); Magnesium 1.7 mg/dl (1.7-2.4); Potassium 3.0 mmol/L (3.5-5.1); Sodium 139.0 mmol/L (136-145)
--- NOTE | 2025-04-15 08:12 | XRay Report ---
EXAM: XR chest 1V portable CLINICAL HISTORY: Pneumonia TECHNIQUE: Radiograph of chest was acquired. 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 FINDINGS: Patchy ill defined opacities are seen in the lungs bilaterally with relative sparing of left middle zone. No pleural effusion. The cardiomediastinal silhouette is within normal limits. No acute osseous abnormality. IMPRESSION: 1. Patchy ill defined opacities are seen in lungs - suggestive of Bronchopneumonia - show progression in size and number. Electronically signed by Myles Mcclure 04-15-2025 08:12 AM
--- NOTE | 2025-04-15 09:21 | Pulmonology Progress Note ---
Date of Service April 15, 2025 Assessment & Plan (1) Acute pneumonia: Plan: Viral panel positive for rhinovirus. Urine Legionella antigen pending. MRSA screen positive. Agree with Zosyn and vancomycin. Continue azithromycin as well. Chest CT reviewed with multifocal pneumonia. No obvious evidence of mucous plugging or pulmonary abscess. (2) Acute respiratory failure with hypoxia: Plan: Continue wean supplemental oxygen as able. (3) Nausea & vomiting: Plan: CT abdomen pelvis consistent with probable ischemic colitis. Appreciate general surgery consultation. Lactic acidosis improving. Zosyn should cover for colitis as well. Abdomen less firm today. (4) Firmness of abdomen: Plan: CT abdomen/pelvis results as above. Plan Pulmonary will follow peripherally. Please call with questions. Thank you. Admission and Anticipated Discharge Date Admission Date: April 13, 2025 Subjective Patient seen examined. Off BiPAP and now on 4 L of oxygen. Review of Systems Review of Systems: Unobtainable due to cognitive status Physical Exam Physical Exam: Constitutional: No apparent distress. Nasal cannula in place. Opens eyes spontaneously. Eyes: Pupils are equal round and reactive to light. Conjunctivae are normal. Anicteric sclera. Ears nose, mouth and throat: Nasal cannula in place. Neck: Trachea is midline. Visual inspection is normal. Respiratory: Rhonchi improving, but still present. Mild tachypnea. Cardiovascular: Tachycardic. Regular rhythm. No murmurs. No edema. Gastrointestinal: Abdomen softer today with less tenderness to palpation. Musculoskeletal: No cyanosis. Patient is able to move all extremities. Skin: No rashes, warm dry and intact. Neurologic: No obvious focal neurological deficits seen. Psychiatric: Confused. Results & Data Results & Data Vital Signs (Past 12 Hours) Vital Signs Temp Pulse Pulse Resp BP Pulse Ox O2 Del Method 04/15/25 08:52 93 H 04/15/25 08:52 High Flow Nasal Cannula 04/15/25 07:34 113 H 22 98 04/15/25 07:32 113 H 22 98 BiPAP 04/15/25 07:29 36.8 C 113 H 20 140/86 98 BiPAP 04/15/25 03:01 37.4 C 108 H 18 149/87 H 97 BiPAP 04/15/25 02:30 99 H 27 H 96 BiPAP 04/15/25 02:30 99 H 27 H 96 04/14/25 22:38 37.2 C 106 H 20 147/77 H 97 Nasal Cannula 04/14/25 22:30 107 H 22 96 BiPAP 04/14/25 22:30 107 H 22 96 04/14/25 21:54 79 O2 Flow Rate FiO2 04/15/25 08:52 04/15/25 08:52 4 04/15/25 07:34 40 04/15/25 07:32 40 04/15/25 07:29 04/15/25 03:01 04/15/25 02:30 40 04/15/25 02:30 40 04/14/25 22:38 04/14/25 22:30 40 04/14/25 22:30 40 04/14/25 21:54 PG Care Time/CCT Total # of Minutes Spent Total Time Spent with Patient: Total time spent is greater than 50% in coordination of care (as documented) at patient's floor/unit and/or counseling patient: Coding Level of Care Code 66063 SUB INP/OBS CARE 10/31MIN Diagnoses Acute pneumonia J18.9 Acute respiratory failure with hypoxia J96.01 Nausea & vomiting R11.2 Firmness of abdomen R19.8
[2025-04-15 09:24] LABS: Hemoglobin A1C 5.9 % (4.5-5.6)
[2025-04-15] MEDS: MAGNESIUM SULFATE / D5W 1 GM/100 ML BAG IV ONE (09:27)
[2025-04-15] MEDS: POTASSIUM CHLORIDE / WTR 10 MEQ/100 ML PLCT IV SCH (09:27)
--- NOTE | 2025-04-15 11:23 | Surgery Progress Note ---
Date of Service April 15, 2025 Assessment & Plan (1) Pneumonia: (2) Acute hypoxic respiratory failure: (3) Nausea & vomiting: (4) Ischemic colitis: Plan: 79 yo female with Dementia and nonverbal [facility] episode of vomiting with CPAP and episode of hypoxia with multifocal pneumonia and CT scan concerning for pancolitis, likely ischemic of sigmoid colon. Leukocytosis 37k --> 32k. Lactate stable at 2.7 from 6.0. Abdomen slightly distended but not rigid, no peritonitis, exam limited however as patient nonverbal. 04/15/25 avss leukocytosis improving to 26k (32) no further blood in stools per nursing abdomen soft but mildly distended, no rigidity Plan: No acute surgical intervention recommendation Conservative management : npo, bowel rest, broad spectrum abx, and gentle IV fluids to help perfuse bowel given respiratory status would recommend resuming Lovenox due to high blood clot risk given no more blood in stools Discussed with Dr. Sanabria Consider palliative consult as Son and Daughter have differing wishes of full code vs DNR and patients current medical status Continue medical management Discussed with Dr. Campbell who evaluate patient separately, agrees with above. Admission and Anticipated Discharge Date Admission Date: April 13, 2025 Subjective unable to obtain due to mental status Review of Systems Review of Systems: Unobtainable due to cognitive status Physical Exam Constitutional: + obese and + altered mental status; no acute distress Gastrointestinal (Abdomen): Inspection/Auscultation: + abdomen distended Percussion/Palpation: abdomen soft; abdomen nontender, no guarding and abdomen not rigid Psychiatric: Orientation: + not alert and + not oriented x 3 Results & Data Vital Signs (Past 12 Hours) Vital Signs Temp Pulse Pulse Resp BP Pulse Ox O2 Del Method 04/15/25 11:14 113 H 22 95 Nasal Cannula 04/15/25 10:52 36.7 C 109 H 22 121/73 96 High Flow Nasal Cannula 04/15/25 08:52 93 H 04/15/25 08:52 High Flow Nasal Cannula 04/15/25 07:34 113 H 22 98 04/15/25 07:32 113 H 22 98 BiPAP 04/15/25 07:29 36.8 C 113 H 20 140/86 98 BiPAP 04/15/25 03:01 37.4 C 108 H 18 149/87 H 97 BiPAP 07/10/25 02:30 99 H 27 H 96 BiPAP 04/15/25 02:30 99 H 27 H 96 O2 Flow Rate FiO2 04/15/25 11:14 4 04/15/25 10:52 4 04/15/25 08:52 04/15/25 08:52 4 04/15/25 07:34 40 04/15/25 07:32 40 04/15/25 07:29 04/15/25 03:01 04/15/25 02:30 40 04/15/25 02:30 40 Laboratory Results 04/15/25 Range/Units 06:01 WBC 26.41 H (4.8-10.8) K/ul RBC 3.31 L (4.20-5.40) M/uL Hgb 9.9 L (12.0-16.0) g/dl Hct 30.1 L (37.0-47.0) % MCV 90.9 (80.0-100.0) fL MCH 29.9 (25.0-34.0) pg MCHC 32.9 (32.0-36.0) g/dL RDW Std Deviation 48.3 H (36.4-46.3) fL RDW Coeff of Fabiano 14.6 H (11.5-14.5) % Plt Count 211 (130-400) K/uL MPV 10.5 (9.4-12.4) fL Sodium 139 (136-145) mmol/L Potassium 3.0 L D (3.5-5.1) mmol/L Chloride 107 (98-107) mmol/L Carbon Dioxide 26 (21-32) mmol/L Anion Gap 6 (3-11) BUN 12 (6-23) mg/dl Creatinine 0.80 (0.6-1.2) mg/dl Est Cr Clr Drug Dosing 47.1 ml/min eGFR 75.37 BUN/Creatinine Ratio 15.0 (10-20) Glucose 138 H (70-99(Fasting)) mg/dl Estimat Average Glucose 123 mg/dl Hemoglobin A1c 5.9 H (4.5-5.6) % Calcium 8.7 (8.6-10.3) mg/dl Magnesium 1.7 (1.7-2.4) mg/dl (1) Pneumonia Laterality: bilateral Lung location: lower lobe of lung Pneumonia type: due to unspecified organism Qualified Code(s): J18.9 - Pneumonia, unspecified organism
--- NOTE | 2025-04-15 14:17 | Hospitalist Progress Note ---
Date of Service April 15, 2025 Assessment & Plan (1) Witnessed episode of apnea: (2) Vomiting: (3) Alzheimer's dementia: (4) Hyperlipidemia: (5) Lactic acid increased: (6) Dementia: Plan The patient is a 79-year-old female who presented to the ED on 04/13/2025 s/p vomiting episode and hypoxia with suspected aspiration pneumonia Acute hypoxic respiratory failure Multifocal/aspiration pneumonia Sepsis H/O ADELA on CPAP -- Respiratory BioFire positive for enterorhinovirus --MRSA screen positive --Chest CTA:No evidence for pulmonary embolism. Multifocal pneumonia. --Blood Cultures: Negative to date --Urine for Legionella pending --Continue vancomycin, Zosyn, azithromycin --Continue aspiration precautions --Speech eval when more awake --Appreciate pulmonology input -- BiPAP as needed -- Continue to wean supplemental oxygen as able Leukocytosis trending down Will consider palliative care evaluation if no improvement Ischemic colitis Lactic acidosis Had rectal bleed on 04/13/2025 --CT ABD:Diffuse prominent wall thickening of the large bowel, suggestive of colitis. -- Continue bowel rest, Zosyn, IV fluids Appreciate surgery input Monitor CBC No indication for blood transfusion currently Acute metabolic encephalopathy:POA Secondary to above Hx dementia: Continue donepezil/Namenda Will consider palliative care evaluation if no improvement Hypokalemia Replace and monitor Hx HLD/HTN: Hold amlodipine, lisinopril Continue statin Monitor blood pressure--stable off medications Hx hypothyroidism: Continue levothyroxine Prediabetes HbA1c 5.9 DVT Px Lovenox SQ CODE STATUS Full code as per patient's son. Discussed on multiple occasions. Admission and Anticipated Discharge Date Admission Date: April 13, 2025 Subjective Patient is seen and examined at bedside Remains obtunded, does not follow simple commands Discussed with surgery today Updated patient's son over the phone Saturating well on 4 L supplemental oxygen Tried to reach patient's daughter over the phone: No answer No distress on exam No recurrence of rectal bleeding overnight Review of Systems Review of Systems: Unobtainable due to reduced consciousness Physical Exam Physical Exam: Physical Exam: Vitals signs as noted above General Appearance:Moderately built and nourished, no apparent distress, obtunded Head: normocephalic, Atraumatic Eyes: normal inspection Neck: supple, Trachea midline Respiratory/Chest: Coarse breath sounds, b/l rhonchi, No accessory muscle use Cardiovascular: S1, S2, No murmur, tachycardia Abdomen/GI:Soft, mildly distended, non tender, Bowel sounds present Extremities/Musculoskeletal:normal inspection, 1+ edema Neurologic/Psych:Obtunded, unable to perform complete neurological exam Skin: normal color, warm Results & Data Results & Data Vital Signs (Past 12 Hours) Vital Signs Temp Pulse Pulse Resp BP Pulse Ox O2 Del Method 04/15/25 11:29 113 H 22 95 04/15/25 11:14 113 H 22 95 Nasal Cannula 04/15/25 10:52 36.7 C 109 H 22 121/73 96 High Flow Nasal Cannula 04/15/25 08:52 93 H 04/15/25 08:52 High Flow Nasal Cannula 04/15/25 07:34 113 H 22 98 04/15/25 07:32 113 H 22 98 BiPAP 04/15/25 07:29 36.8 C 113 H 20 140/86 98 BiPAP 04/15/25 03:01 37.4 C 108 H 18 149/87 H 97 BiPAP 04/15/25 02:30 99 H 27 H 96 BiPAP 04/15/25 02:30 99 H 27 H 96 O2 Flow Rate FiO2 04/15/25 11:29 40 04/15/25 11:14 4 04/15/25 10:52 4 04/15/25 08:52 04/15/25 08:52 4 04/15/25 07:34 40 04/15/25 07:32 40 04/15/25 07:29 04/15/25 03:01 04/15/25 02:30 40 04/15/25 02:30 40 Laboratory Results Short CBC 04/15/25 Range/Units 06:01 WBC 26.41 H (4.8-10.8) K/ul Hgb 9.9 L (12.0-16.0) g/dl Hct 30.1 L (37.0-47.0) % Plt Count 211 (130-400) K/uL BMP 04/15/25 06:01 Sodium 139 Potassium 3.0 L D Chloride 107 Carbon Dioxide 26 BUN 12 Creatinine 0.80 Glucose 138 H Calcium 8.7 (2) Vomiting Nausea presence: unspecified Vomiting Intractability: unspecified Vomiting type: unspecified Qualified Code(s): R11.10 - Vomiting, unspecified (6) Dementia Dementia type: unspecified type Dementia behavioral disturbance: without behavioral disturbance Qualified Code(s): F03.90 - Unspecified dementia without behavioral disturbance
--- NOTE | 2025-04-15 18:37 | Electrocardiogram Report ---
Test Reason : Blood Pressure : */* mmHG Vent. Rate : 115 BPM Atrial Rate : 115 BPM P-R Int : 156 ms QRS Dur : 74 ms QT Int : 344 ms P-R-T Axes : 71 34 51 degrees QTcB Int : 475 ms Sinus tachycardia Otherwise normal ECG When compared with ECG of 14-Apr-2025 04:46, No significant change was found Confirmed by Dusty Zapien ([id number]) on 04/15/2025 6:37:49 PM Referred By: REFERRED SELF Confirmed By: Dusty Zapien
[2025-04-16 06:52] LABS: Hematocrit (blood only) 35.1 % (37.0-47.0); Hemoglobin 11.4 g/dl (12.0-16.0); Mean Corpuscular Hemoglobin 29.5 pg (25.0-34.0); Mean Corpuscular Volume 90.7 fL (80.0-100.0); Platelet Count 273 K/uL (130-400); RDW Standard Deviation 47.7 fL (36.4-46.3); Red Blood Count 3.87 M/uL (4.20-5.40); White Blood Count 24.99 K/ul (4.8-10.8)
[2025-04-16 07:10] LABS: Anion Gap 8.0 (3-11); Blood Urea Nitrogen 9.0 mg/dl (6-23); Calcium 8.8 mg/dl (8.6-10.3); Carbon Dioxide 25.0 mmol/L (21-32); Chloride 105.0 mmol/L (98-107); Creatinine Clr Calc Pharmacy 61.9 ml/min; Glucose 115.0 mg/dl (70-99(Fasting)); Magnesium 1.9 mg/dl (1.7-2.4); Potassium 3.2 mmol/L (3.5-5.1); Sodium 138.0 mmol/L (136-145)
[2025-04-16] MEDS: VANCOMYCIN HCL 1,000 MG/270 ML BAG IV SCH (08:16)
--- NOTE | 2025-04-16 08:28 | Pharmacy Report ---
Pharmacy PK ABX Note - Date of Service April 16, 2025 - Assessment and Plan Assessment 04/16: Reviewed vancomycin level, predicting subtherapeutic AUC/PATRICA, will change regimen to 1000mg Q12H. Blood cultures negative x48 hours. 04/14: 79 year old F receiving Zosyn/azithromycin/vancomycin for treatment of Cap. Pertinent microbiologic data includes: Positive MRSA Nasal Swab, BLOOD cultures pending. Day # 3 of antimicrobial therapy. Plan Vancomycin * Loading dose: 1500 mg IV x 1 * Maintenance dose: vancomycin 1000mg Q12H * Regimen is predicted to achieve target AUC/PATRICA of 400-600 mg/L.hr * Random level ordered for: 04/18/25 with AM labs Pharmacy will continue to follow and will adjust dose/frequency as necessary. Thank you. Pharmacy has transitioned to AUC monitoring for vancomycin. AUC/PATRICA is the preferred PK/PD target and is associated with decreased risk of nephrotoxicity compared to traditional trough targets.
[2025-04-16] MEDS: POTASSIUM CHLORIDE / WTR 10 MEQ/100 ML PLCT IV SCH (08:55)
--- NOTE | 2025-04-16 10:42 | Electrocardiogram Report ---
Test Reason : Blood Pressure : */* mmHG Vent. Rate : 123 BPM Atrial Rate : 123 BPM P-R Int : 158 ms QRS Dur : 78 ms QT Int : 302 ms P-R-T Axes : 51 27 56 degrees QTcB Int : 432 ms Sinus tachycardia Otherwise normal ECG When compared with ECG of 15-Apr-2025 05:10, No significant change was found Confirmed by Dusty Zapien ([id number]) on 04/16/2025 10:42:02 AM Referred By: REFERRED SELF Confirmed By: Dusty Zapien
--- NOTE | 2025-04-16 10:55 | Surgery Progress Note ---
Date of Service April 16, 2025 Assessment & Plan (1) Pneumonia: (2) Acute hypoxic respiratory failure: (3) Nausea & vomiting: (4) Ischemic colitis: Plan: 79 yo female with Dementia and nonverbal presented to ED from [facility] after episode of vomiting with CPAP and episode of hypoxia with multifocal pneumonia and CT scan concerning for pancolitis, likely ischemic of sigmoid colon. Leukocytosis 37k --> 32k. Lactate stable at 2.7 from 6.0. Abdomen slightly distended but not rigid, no peritonitis, exam limited however as patient nonverbal. 04/16/25 afebrile leukocytosis improving to 24k (26k) no further blood in stools per nursing abdomen soft but mildly distended, no rigidity Plan: No acute surgical intervention recommendation Conservative management : npo, bowel rest, broad spectrum abx, and gentle IV fluids to help perfuse bowel given respiratory status would recommend resuming Lovenox due to high blood clot risk given no more blood in stools Consider palliative consult as Son and Daughter have differing wishes of full code vs DNR and patients current medical status Continue medical management surgery will follow along peripherally, [facility] 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 Campbell who evaluate patient separately, agrees with above. Admission and Anticipated Discharge Date Admission Date: April 13, 2025 Subjective unable to obtain due to cognitive status Physical Exam Constitutional: + ill appearing and + obese on bipap, obtunded Respiratory: Auscultation: + rhonchi Gastrointestinal (Abdomen): Inspection/Auscultation: + abdomen distended and + hypoactive bowel sounds; + abnormal bowel sounds unable to determine if pain due to cognitive status: upon exam with deep palpation there is some distention but patient not grimmacing on deep palpation abdomen. Skin: no rashes, warm and dry Results & Data Vital Signs (Past 12 Hours) Vital Signs Temp Pulse Pulse Resp BP BP Pulse Ox 04/16/25 10:42 37.3 C 119 H 16 146/89 H 93 04/16/25 09:09 108 H 04/16/25 09:09 04/16/25 07:24 37.5 C 130 H 18 145/93 H 95 04/16/25 07:08 120 H 27 H 94 04/16/25 07:08 120 H 27 H 94 04/16/25 02:58 37.1 C 98 H 17 155/89 H 94 04/16/25 02:25 108 H 28 H 95 04/16/25 02:24 108 H 28 H 95 04/15/25 23:21 37.1 C 100 H 17 169/68 H 96 O2 Del Method FiO2 04/16/25 10:42 BiPAP 04/16/25 09:09 04/16/25 09:09 BiPAP 04/16/25 07:24 BiPAP 04/16/25 07:08 BiPAP 30 04/16/25 07:08 30 04/16/25 02:58 BiPAP 04/16/25 02:25 30 04/16/25 02:24 BiPAP 30 04/15/25 23:21 BiPAP Laboratory Results 04/16/25 04/13/25 Range/Units 05:21 16:03 WBC 24.99 H (4.8-10.8) K/ul RBC 3.87 L (4.20-5.40) M/uL Hgb 11.4 L (12.0-16.0) g/dl Hct 35.1 L (37.0-47.0) % MCV 90.7 (80.0-100.0) fL MCH 29.5 (25.0-34.0) pg MCHC 32.5 (32.0-36.0) g/dL RDW Std Deviation 47.7 H (36.4-46.3) fL RDW Coeff of Fabiano 14.4 (11.5-14.5) % Plt Count 273 (130-400) K/uL MPV 11.4 (9.4-12.4) fL Sodium 138 (136-145) mmol/L Potassium 3.2 L (3.5-5.1) mmol/L Chloride 105 (98-107) mmol/L Carbon Dioxide 25 (21-32) mmol/L Anion Gap 8 (3-11) BUN 9 (6-23) mg/dl Creatinine 0.61 (0.6-1.2) mg/dl Est Cr Clr Drug Dosing 61.9 ml/min eGFR 91.45 BUN/Creatinine Ratio 14.8 (10-20) Glucose 115 H (70-99(Fasting)) mg/dl Calcium 8.8 (8.6-10.3) mg/dl Magnesium 1.9 (1.7-2.4) mg/dl Random Vancomycin 9.5 L (10-20) mcg/ml Urine Legionella Ag SEE NOTE (1) Pneumonia Laterality: bilateral Lung location: lower lobe of lung Pneumonia type: due to unspecified organism Qualified Code(s): J18.9 - Pneumonia, unspecified organism
--- NOTE | 2025-04-16 12:51 | Palliative Care Consultation ---
Date of Consultation April 16, 2025 Assessment & Plan (1) Dyspnea and respiratory abnormalities: (2) Weakness generalized: (3) Palliative care by specialist: (4) Discussion about advance care planning held with family member: Sil does not have decisional capacity A family meeting is recommended In discussion with staff, was advised there is conflict between both SDM, a son and a daughter. They have not been able to reach consensus. Will attempt to reach family to arrange a meeting. Nursing updated, Plan above. Thank you for allowing us to participate in the ongoing care of this patient. Please page with any additional concerns. Sandip Santamaria DNP Director, Palliative Medicine History of Present Illness Reason for Consultation: "Goals of care" Attending Physician: Jose Sanabria MD History of Present Illness Sil is a 79yo female with adv dementia who [facility]13/25 from [facility] for poss aspiration of emesis while on CPAP. She had been on Augmentin since 04/02 Presently admitted for acute hypoxemic resp failure, asp PNA, sepsis She has long standing dementia and remains on Namenda + Aricept PMH: dementia, hypothyroidism, HTN, constipation, HLD She is lying in bed with face mask, no family is present She is unable to provide HPI She is not able to engage with me Allergies Allergy/AdvReac Type Severity Reaction Status Date / Time No Known Allergies Allergy Verified 04/13/25 13:29 Home Medications Medication Instructions Recorded Confirmed Type aspirin 81 mg tablet,delayed 81 mg PO QAM 08/27/18 04/13/25 History release cholecalciferol (vitamin D3) 25 1,000 unit PO QAM 08/27/18 04/13/25 History mcg (1,000 unit) capsule (Vitamin D3) donepezil 10 mg tablet 10 mg PO QAM 08/27/18 04/13/25 History lisinopril 20 mg tablet 20 mg PO BID 08/27/18 04/13/25 History melatonin 1 mg tablet 2 mg PO HS 08/27/18 04/13/25 History simvastatin 20 mg tablet 20 mg PO QPM 08/27/18 04/13/25 History venlafaxine 37.5 mg 37.5 mg PO QAM 08/27/18 04/13/25 History capsule,extended release 24 hr amlodipine 2.5 mg tablet 2.5 mg PO QAM 04/27/20 04/13/25 History famotidine 20 mg tablet 20 mg PO BID 03/02/21 04/13/25 History acetaminophen 325 mg tablet 650 mg PO Q4H PRN Fever 04/13/25 04/13/25 History acetaminophen 325 mg tablet 650 mg PO Q4H PRN Pain 04/13/25 04/13/25 History bisacodyl 10 mg rectal suppository 10 mg W[place] DAILY PRN Constipation 04/13/25 04/13/25 History guaifenesin 100 mg/5 mL oral liquid 200 mg PO Q4H PRN Cough 04/13/25 04/13/25 History ipratropium 0.5 mg-albuterol 3 mg 3 ml inhalation QID Pneumonia 04/13/25 04/13/25 History (2.5 mg base)/3 mL nebulization soln levothyroxine 75 mcg tablet 75 mcg PO QAM 04/13/25 04/13/25 History magnesium hydroxide 400 mg/5 mL 2,400 mg PO DAILY PRN Constipation 04/13/25 04/13/25 History oral suspension (Milk of Magnesia) memantine 10 mg tablet 10 mg PO BID 04/13/25 04/13/25 History omeprazole 20 mg capsule,delayed 20 mg PO BID 04/13/25 04/13/25 History release psyllium husk 3.4 gram/5.4 gram 1 tsp PO QAM 04/13/25 04/13/25 History oral powder (Metamucil) Patient History Medical History (Updated 04/16/25 @ 12:45 by Moriah Santamaria DNP) Vomiting Witnessed episode of apnea Snoring Alzheimer's dementia Diverticulitis Family History Mother No pertinent family history Father No pertinent family history Family/Other No pertinent family history Other Family history of heart disease Family history of stroke Social History Smoking Status: Unknown if ever smoked Second Hand Exposure: No; Do You Dip or Chew Tobacco: No; Hx Alcohol Use: No Hx Substance Use: No Preferred Language: Latvian Communication Ability: Impaired Communication Ability Comment: Son with pt. Communication Tools: Facial Expression and Physical Gestures Management Consulting Required: No Beliefs That Will Affect Care: None Current Living Situation: Custodial Current Living Situation Comment: skilled current occupational status: retired other: Minimally verbal, occasional delusions, ambulatory dysfunction d/t dementia Feels Safe at Home: Yes Diet Comment: high fiber caffeine: No Gender Identity: Female Assistive Devices: Mechanical Lift and Wheelchair Review of Systems Review of Systems: Unobtainable due to cognitive status and Unobtainable due to reduced consciousness Physical Exam Constitutional: + acute distress, + ill appearing, + thi n, + altered mental status, + behavioral limitations, + physical limitations, + frail appearing and + lethargic Eyes: + anicteric sclerae and PERRL ENMT: pharynx with dry MM Neck: no stridor, no thyromegaly Respiratory: + respiratory distress and + uses access ory muscles Auscultation: + diminished lung sounds, + crackles and + rhonchi Cardiovascular: Rate/Rhythm: + tachycardic and + irregularly irregular Gastrointestinal (Abdomen): abd breathing, BS+ Musculoskeletal: gen weakness Skin: +pallor, cool to touch Neurologic: unable to follow commands non verbal Results & Data Vital Signs (Past 12 Hours) Vital Signs Temp Pulse Pulse Resp BP BP Pulse Ox 04/16/25 11:09 106 H 24 94 04/16/25 10:42 37.3 C 119 H 16 146/89 H 93 04/16/25 09:09 108 H 04/16/25 09:09 04/16/25 07:24 37.5 C 130 H 18 145/93 H 95 04/16/25 07:08 120 H 27 H 94 04/16/25 07:08 120 H 27 H 94 04/16/25 02:58 37.1 C 98 H 17 155/89 H 94 04/16/25 02:25 108 H 28 H 95 04/16/25 02:24 108 H 28 H 95 O2 Del Method O2 Flow Rate FiO2 04/16/25 11:09 Nasal Cannula 4 04/16/25 10:42 BiPAP 04/16/25 09:09 04/16/25 09:09 BiPAP 04/16/25 07:24 BiPAP 04/16/25 07:08 BiPAP 30 04/16/25 07:08 30 04/16/25 02:58 BiPAP 04/16/25 02:25 30 04/16/25 02:24 BiPAP 30 Laboratory Results 04/16/25 04/15/25 04/14/25 Range/Units 05:21 06:01 06:30 WBC 24.99 H 26.41 H (4.8-10.8) K/ul RBC 3.87 L 3.31 L (4.20-5.40) M/uL Hgb 11.4 L 9.9 L (12.0-16.0) g/dl POC Hgb (12.0-16.0) g/dl Hct 35.1 L 30.1 L (37.0-47.0) % POC Hct (37-47) % MCV 90.7 90.9 (80.0-100.0) fL MCH 29.5 29.9 (25.0-34.0) pg MCHC 32.5 32.9 (32.0-36.0) g/dL RDW Std Deviation 47.7 H 48.3 H (36.4-46.3) fL RDW Coeff of Fabiano 14.4 14.6 H (11.5-14.5) % Plt Count 273 211 (130-400) K/uL MPV 11.4 10.5 (9.4-12.4) fL Immature Gran % (Auto) % Neut % (Auto) % Lymph % (Auto) % [place] % (Auto) % Eos % (Auto) % Baso % (Auto) % Neut # (Auto) (1.40-6.50) K/uL Lymph # (Auto) (1.20-3.40) K/uL [place] # (Auto) (0.11-0.59) K/uL Eos # (Auto) (0.00-0.50) K/uL Baso # (Auto) (0.00-0.20) K/uL Immature Gran # (Auto) (0.01-0.20) K/uL Toxic Vacuolation Polychromasia POC pH (7.35-7.45) POC pCO2 (35-46) mmHg POC pO2 (80-95) mmHg POC HCO3 (19-24) lena/L POC Total CO2 (24-31) mmol/L POC Base Excess (-9-1.8) lena/L POC ABG O2 Sat (90-95) % POC Sodium (135-144) mmol/L Sodium 138 139 (136-145) mmol/L POC Potassium (3.3-5.0) mmol/L Potassium 3.2 L 3.0 L D (3.5-5.1) mmol/L Chloride 105 107 (98-107) mmol/L Carbon Dioxide 25 26 (21-32) mmol/L Anion Gap 8 6 (3-11) BUN 9 12 (6-23) mg/dl Creatinine 0.61 0.80 (0.6-1.2) mg/dl Est Cr Clr Drug Dosing 61.9 47.1 eGFR 91.45 75.37 BUN/Creatinine Ratio 14.8 15.0 (10-20) Glucose 115 H 138 H (70-99(Fasting)) mg/dl POC Glucose 186 H (70-99) mg/dl Estimat Average Glucose 123 mg/dl Hemoglobin A1c 5.9 H (4.5-5.6) % Lactate (0.4-2.0) mmol/L Calcium 8.8 8.7 (8.6-10.3) mg/dl Magnesium 1.9 1.7 (1.7-2.4) mg/dl Total Bilirubin (0.2-1.0) mg/dl AST (13-39) U/L ALT (7-52) U/L Alkaline Phosphatase (34-104) U/L B-Natriuretic Peptide (0-100) pg/ml Total Protein (6.0-8.3) gm/dl Albumin (3.4-5.0) gm/dl Globulin (2.5-4.0) gm/dl Albumin/Globulin Ratio (0.9-2) Urine Color Urine Appearance (Clear) Urine pH (4.5-7.5) Ur Specific Watts (1.000-1.030) Urine Protein (Negative) Urine Glucose (UA) (Negative) Urine Ketones (Negative) Urine Blood (Negative) Urine Nitrite (Negative) Urine Bilirubin (Negative) Urine Urobilinogen (Negative) Ur Leukocyte Esterase (Negative) Urine WBC (Auto) (0-5) /hpf Urine RBC (Auto) (0-2) /hpf U Hyaline Cast (Auto) (0-2) /lpf U Epithel Cells (Auto) (0-2) /hpf Urine Bacteria (Auto) (None Seen) Urine Comment Nasal Screen MRSA (PCR) (Negative) Random Vancomycin 9.5 L (10-20) mcg/ml Adenovirus (PCR) (NotDetected) B. pertussis DNA (PCR) (NotDetected) B.parapertussis DNA PCR (NotDetected) C. pneumoniae DNA (PCR) (NotDetected) Coronavirus OC43 (PCR) (NotDetected) Coronavirus HKU1 (PCR) (NotDetected) Coronavirus 229E (PCR) (NotDetected) SARS-CoV-2 (PCR) (NotDetected) Coronavirus NL63 (PCR) (NotDetected) Human Metapneumovir PCR (NotDetected) Influenza Type A (PCR) (NotDetected) Influenza Type B (PCR) (NotDetected) Urine Legionella Ag M. pneumoniae (PCR) (NotDetected) Parainfluenza 1 (PCR) (NotDetected) Parainfluenza 2 (PCR) (NotDetected) Parainfluenza 3 (PCR) (NotDetected) Parainfluenza 4 (PCR) (NotDetected) RSV (PCR) (NotDetected) Entero/Rhino (PCR) (NotDetected) 04/14/25 04/14/25 04/14/25 Range/Units 05:29 01:10 01:02 WBC 32.50 H* (4.8-10.8) K/ul RBC 3.55 L (4.20-5.40) M/uL Hgb 10.6 L D (12.0-16.0) g/dl POC Hgb 11.9 L (12.0-16.0) g/dl Hct 33.1 L (37.0-47.0) % POC Hct 35 L (37-47) % MCV 93.2 (80.0-100.0) fL MCH 29.9 (25.0-34.0) pg MCHC 32.0 (32.0-36.0) g/dL RDW Std Deviation 51.2 H (36.4-46.3) fL RDW Coeff of Fabiano 14.9 H (11.5-14.5) % Plt Count 283 (130-400) K/uL MPV 10.4 (9.4-12.4) fL Immature Gran % (Auto) 2.8 % Neut % (Auto) 90.0 % Lymph % (Auto) 2.9 % [place] % (Auto) 3.9 % Eos % (Auto) 0.1 % Baso % (Auto) 0.3 % Neut # (Auto) 29.28 H (1.40-6.50) K/uL Lymph # (Auto) 0.94 L (1.20-3.40) K/uL [place] # (Auto) 1.27 H (0.11-0.59) K/uL Eos # (Auto) 0.02 (0.00-0.50) K/uL Baso # (Auto) 0.09 (0.00-0.20) K/uL Immature Gran # (Auto) 0.90 H (0.01-0.20) K/uL Toxic Vacuolation Polychromasia POC pH 7.34 L (7.35-7.45) POC pCO2 38 (35-46) mmHg POC pO2 138 H (80-95) mmHg POC HCO3 21 (19-24) lena/L POC Total CO2 22 L (24-31) mmol/L POC Base Excess -5.0 (-9-1.8) lena/L POC ABG O2 Sat 99.0 H (90-95) % POC Sodium 139 (135-144) mmol/L Sodium 139 (136-145) mmol/L POC Potassium 3.9 (3.3-5.0) mmol/L Potassium 3.8 (3.5-5.1) mmol/L Chloride 104 (98-107) mmol/L Carbon Dioxide 23 (21-32) mmol/L Anion Gap 12 H (3-11) BUN 17 (6-23) mg/dl Creatinine 0.93 (0.6-1.2) mg/dl Est Cr Clr Drug Dosing 40.6 eGFR 62.91 BUN/Creatinine Ratio 18.3 (10-20) Glucose 288 H (70-99(Fasting)) mg/dl POC Glucose (70-99) mg/dl Estimat Average Glucose mg/dl Hemoglobin A1c (4.5-5.6) % Lactate 2.7 H* 2.7 H* (0.4-2.0) mmol/L Calcium 8.4 L (8.6-10.3) mg/dl Magnesium (1.7-2.4) mg/dl Total Bilirubin 0.7 (0.2-1.0) mg/dl AST 41 H (13-39) U/L ALT 38 (7-52) U/L Alkaline Phosphatase 73 (34-104) U/L B-Natriuretic Peptide (0-100) pg/ml Total Protein 5.6 L (6.0-8.3) gm/dl Albumin 2.8 L (3.4-5.0) gm/dl Globulin 2.8 (2.5-4.0) gm/dl Albumin/Globulin Ratio 1.0 (0.9-2) Urine Color Urine Appearance (Clear) Urine pH (4.5-7.5) Ur Specific [place] (1.000-1.030) Urine Protein (Negative) Urine Glucose (UA) (Negative) Urine Ketones (Negative) Urine Blood (Negative) Urine Nitrite (Negative) Urine Bilirubin (Negative) Urine Urobilinogen (Negative) Ur Leukocyte Esterase (Negative) Urine WBC (Auto) (0-5) /hpf Urine RBC (Auto) (0-2) /hpf U Hyaline Cast (Auto) (0-2) /lpf U Epithel Cells (Auto) (0-2) /hpf Urine Bacteria (Auto) (None Seen) Urine Comment Nasal Screen MRSA (PCR) (Negative) Random Vancomycin (10-20) mcg/ml Adenovirus (PCR) (NotDetected) B. pertussis DNA (PCR) (NotDetected) B.parapertussis DNA PCR (NotDetected) C. pneumoniae DNA (PCR) (NotDetected) Coronavirus OC43 (PCR) (NotDetected) Coronavirus HKU1 (PCR) (NotDetected) Coronavirus 229E (PCR) (NotDetected) SARS-CoV-2 (PCR) (NotDetected) Coronavirus NL63 (PCR) (NotDetected) Human Metapneumovir PCR (NotDetected) Influenza Type A (PCR) (NotDetected) Influenza Type B (PCR) (NotDetected) Urine Legionella Ag M. pneumoniae (PCR) (NotDetected) Parainfluenza 1 (PCR) (NotDetected) Parainfluenza 2 (PCR) (NotDetected) Parainfluenza 3 (PCR) (NotDetected) Parainfluenza 4 (PCR) (NotDetected) RSV (PCR) (NotDetected) Entero/Rhino (PCR) (NotDetected) 04/13/25 04/13/25 04/13/25 Range/Units 22:51 20:12 18:16 WBC (4.8-10.8) K/ul RBC (4.20-5.40) M/uL Hgb (12.0-16.0) g/dl POC Hgb (12.0-16.0) g/dl Hct (37.0-47.0) % POC Hct (37-47) % MCV (80.0-100.0) fL MCH (25.0-34.0) pg MCHC (32.0-36.0) g/dL RDW Std Deviation (36.4-46.3) fL RDW Coeff of Fabiano (11.5-14.5) % Plt Count (130-400) K/uL MPV (9.4-12.4) fL Immature Gran % (Auto) % Neut % (Auto) % Lymph % (Auto) % [place] % (Auto) % Eos % (Auto) % Baso % (Auto) % Neut # (Auto) (1.40-6.50) K/uL Lymph # (Auto) (1.20-3.40) K/uL [place] # (Auto) (0.11-0.59) K/uL Eos # (Auto) (0.00-0.50) K/uL Baso # (Auto) (0.00-0.20) K/uL Immature Gran # (Auto) (0.01-0.20) K/uL Toxic Vacuolation Polychromasia POC pH (7.35-7.45) POC pCO2 (35-46) mmHg POC pO2 (80-95) mmHg POC HCO3 (19-24) lena/L POC Total CO2 (24-31) mmol/L POC Base Excess (-9-1.8) lena/L POC ABG O2 Sat (90-95) % POC Sodium (135-144) mmol/L Sodium (136-145) mmol/L POC Potassium (3.3-5.0) mmol/L Potassium (3.5-5.1) mmol/L Chloride (98-107) mmol/L Carbon Dioxide (21-32) mmol/L Anion Gap (3-11) BUN (6-23) mg/dl Creatinine (0.6-1.2) mg/dl Est Cr Clr Drug Dosing eGFR BUN/Creatinine Ratio (10-20) Glucose (70-99(Fasting)) mg/dl POC Glucose 165 H (70-99) mg/dl Estimat Average Glucose mg/dl Hemoglobin A1c (4.5-5.6) % Lactate 3.1 H* 3.6 H* (0.4-2.0) mmol/L Calcium (8.6-10.3) mg/dl Magnesium (1.7-2.4) mg/dl Total Bilirubin (0.2-1.0) mg/dl AST (13-39) U/L ALT (7-52) U/L Alkaline Phosphatase (34-104) U/L B-Natriuretic Peptide (0-100) pg/ml Total Protein (6.0-8.3) gm/dl Albumin (3.4-5.0) gm/dl Globulin (2.5-4.0) gm/dl Albumin/Globulin Ratio (0.9-2) Urine Color Urine Appearance (Clear) Urine pH (4.5-7.5) Ur Specific [place] (1.000-1.030) Urine Protein (Negative) Urine Glucose (UA) (Negative) Urine Ketones (Negative) Urine Blood (Negative) Urine Nitrite (Negative) Urine Bilirubin (Negative) Urine Urobilinogen (Negative) Ur Leukocyte Esterase (Negative) Urine WBC (Auto) (0-5) /hpf Urine RBC (Auto) (0-2) /hpf U Hyaline Cast (Auto) (0-2) /lpf U Epithel Cells (Auto) (0-2) /hpf Urine Bacteria (Auto) (None Seen) Urine Comment Nasal Screen MRSA (PCR) (Negative) Random Vancomycin (10-20) mcg/ml Adenovirus (PCR) (NotDetected) B. pertussis DNA (PCR) (NotDetected) B.parapertussis DNA PCR (NotDetected) C. pneumoniae DNA (PCR) (NotDetected) Coronavirus OC43 (PCR) (NotDetected) Coronavirus HKU1 (PCR) (NotDetected) Coronavirus 229E (PCR) (NotDetected) SARS-CoV-2 (PCR) (NotDetected) Coronavirus NL63 (PCR) (NotDetected) Human Metapneumovir PCR (NotDetected) Influenza Type A (PCR) (NotDetected) Influenza Type B (PCR) (NotDetected) Urine Legionella Ag M. pneumoniae (PCR) (NotDetected) Parainfluenza 1 (PCR) (NotDetected) Parainfluenza 2 (PCR) (NotDetected) Parainfluenza 3 (PCR) (NotDetected) Parainfluenza 4 (PCR) (NotDetected) RSV (PCR) (NotDetected) Entero/Rhino (PCR) (NotDetected) 04/13/25 04/13/25 04/13/25 Range/Units 16:03 15:06 14:00 WBC (4.8-10.8) K/ul RBC (4.20-5.40) M/uL Hgb (12.0-16.0) g/dl POC Hgb (12.0-16.0) g/dl Hct (37.0-47.0) % POC Hct (37-47) % MCV (80.0-100.0) fL MCH (25.0-34.0) pg MCHC (32.0-36.0) g/dL RDW Std Deviation (36.4-46.3) fL RDW Coeff of Fabiano (11.5-14.5) % Plt Count (130-400) K/uL MPV (9.4-12.4) fL Immature Gran % (Auto) % Neut % (Auto) % Lymph % (Auto) % [place] % (Auto) % Eos % (Auto) % Baso % (Auto) % Neut # (Auto) (1.40-6.50) K/uL Lymph # (Auto) (1.20-3.40) K/uL [place] # (Auto) (0.11-0.59) K/uL Eos # (Auto) (0.00-0.50) K/uL Baso # (Auto) (0.00-0.20) K/uL Immature Gran # (Auto) (0.01-0.20) K/uL Toxic Vacuolation Polychromasia POC pH (7.35-7.45) POC pCO2 (35-46) mmHg POC pO2 (80-95) mmHg POC HCO3 (19-24) lena/L POC Total CO2 (24-31) mmol/L POC Base Excess (-9-1.8) lena/L POC ABG O2 Sat (90-95) % POC Sodium (135-144) mmol/L Sodium (136-145) mmol/L POC Potassium (3.3-5.0) mmol/L Potassium (3.5-5.1) mmol/L Chloride (98-107) mmol/L Carbon Dioxide (21-32) mmol/L Anion Gap (3-11) BUN (6-23) mg/dl Creatinine (0.6-1.2) mg/dl Est Cr Clr Drug Dosing eGFR BUN/Creatinine Ratio (10-20) Glucose (70-99(Fasting)) mg/dl POC Glucose (70-99) mg/dl Estimat Average Glucose mg/dl Hemoglobin A1c (4.5-5.6) % Lactate 6.0 H* (0.4-2.0) mmol/L Calcium (8.6-10.3) mg/dl Magnesium (1.7-2.4) mg/dl Total Bilirubin (0.2-1.0) mg/dl AST (13-39) U/L ALT (7-52) U/L Alkaline Phosphatase (34-104) U/L B-Natriuretic Peptide (0-100) pg/ml Total Protein (6.0-8.3) gm/dl Albumin (3.4-5.0) gm/dl Globulin (2.5-4.0) gm/dl Albumin/Globulin Ratio (0.9-2) Urine Color Yellow Urine Appearance Clear (Clear) Urine pH 6.0 (4.5-7.5) Ur Specific [place] 1.021 (1.000-1.030) Urine Protein Trace H (Negative) Urine Glucose (UA) Negative (Negative) Urine Ketones Trace H (Negative) Urine Blood Negative (Negative) Urine Nitrite Negative (Negative) Urine Bilirubin Negative (Negative) Urine Urobilinogen Negative (Negative) Ur Leukocyte Esterase Trace H (Negative) Urine WBC (Auto) 6-10 H (0-5) /hpf Urine RBC (Auto) 0-2 (0-2) /hpf U Hyaline Cast (Auto) 0-2 (0-2) /lpf U Epithel Cells (Auto) 3-5 H (0-2) /hpf Urine Bacteria (Auto) None Seen (None Seen) Urine Comment Nasal Screen MRSA (PCR) Positive A (Negative) Random Vancomycin (10-20) mcg/ml Adenovirus (PCR) Not Detected (NotDetected) B. pertussis DNA (PCR) Not Detected (NotDetected) B.parapertussis DNA PCR Not Detected (NotDetected) C. pneumoniae DNA (PCR) Not Detected (NotDetected) Coronavirus OC43 (PCR) Not Detected (NotDetected) Coronavirus HKU1 (PCR) Not Detected (NotDetected) Coronavirus 229E (PCR) Not Detected (NotDetected) SARS-CoV-2 (PCR) Not Detected (NotDetected) Coronavirus NL63 (PCR) Not Detected (NotDetected) Human Metapneumovir PCR Not Detected (NotDetected) Influenza Type A (PCR) Not Detected (NotDetected) Influenza Type B (PCR) Not Detected (NotDetected) Urine Legionella Ag SEE NOTE M. pneumoniae (PCR) Not Detected (NotDetected) Parainfluenza 1 (PCR) Not Detected (NotDetected) Parainfluenza 2 (PCR) Not Detected (NotDetected) Parainfluenza 3 (PCR) Not Detected (NotDetected) Parainfluenza 4 (PCR) Not Detected (NotDetected) RSV (PCR) Not Detected (NotDetected) Entero/Rhino (PCR) DETECTED A (NotDetected) 04/13/25 04/13/25 04/13/25 Range/Units 12:43 10:55 10:09 WBC 37.48 H* (4.8-10.8) K/ul RBC 4.53 (4.20-5.40) M/uL Hgb 13.8 (12.0-16.0) g/dl POC Hgb 12.2 (12.0-16.0) g/dl Hct 42.4 (37.0-47.0) % POC Hct 36 L (37-47) % MCV 93.6 (80.0-100.0) fL MCH 30.5 (25.0-34.0) pg MCHC 32.5 (32.0-36.0) g/dL RDW Std Deviation 51.1 H (36.4-46.3) fL RDW Coeff of Fabiano 14.9 H (11.5-14.5) % Plt Count 360 (130-400) K/uL MPV 10.2 (9.4-12.4) fL Immature Gran % (Auto) 1.4 % Neut % (Auto) 93.7 % Lymph % (Auto) 1.5 % [place] % (Auto) 3.1 % Eos % (Auto) 0.0 % Baso % (Auto) 0.3 % Neut # (Auto) 35.12 H (1.40-6.50) K/uL Lymph # (Auto) 0.55 L (1.20-3.40) K/uL [place] # (Auto) 1.17 H (0.11-0.59) K/uL Eos # (Auto) 0.01 (0.00-0.50) K/uL Baso # (Auto) 0.10 (0.00-0.20) K/uL Immature Gran # (Auto) 0.53 H (0.01-0.20) K/uL Toxic Vacuolation 1+ Polychromasia 1+ POC pH 7.35 (7.35-7.45) POC pCO2 29 L (35-46) mmHg POC pO2 63 L (80-95) mmHg POC HCO3 16 L (19-24) lena/L POC Total CO2 17 L (24-31) mmol/L POC Base Excess -10.0 L (-9-1.8) lena/L POC ABG O2 Sat 91.0 (90-95) % POC Sodium 141 (135-144) mmol/L Sodium 143 (136-145) mmol/L POC Potassium 4.2 (3.3-5.0) mmol/L Potassium 4.1 (3.5-5.1) mmol/L Chloride 109 H (98-107) mmol/L Carbon Dioxide 23 (21-32) mmol/L Anion Gap 11 (3-11) BUN 24 H (6-23) mg/dl Creatinine 1.18 (0.6-1.2) mg/dl Est Cr Clr Drug Dosing Not Reportable eGFR 47.28 BUN/Creatinine Ratio 20.3 H (10-20) Glucose 141 H (70-99(Fasting)) mg/dl POC Glucose (70-99) mg/dl Estimat Average Glucose mg/dl Hemoglobin A1c (4.5-5.6) % Lactate 5.4 H* (0.4-2.0) mmol/L Calcium 9.4 (8.6-10.3) mg/dl Magnesium (1.7-2.4) mg/dl Total Bilirubin 0.4 (0.2-1.0) mg/dl AST 83 H (13-39) U/L ALT 59 H (7-52) U/L Alkaline Phosphatase 99 (34-104) U/L B-Natriuretic Peptide 8 (0-100) pg/ml Total Protein 6.2 (6.0-8.3) gm/dl Albumin 3.3 L (3.4-5.0) gm/dl Globulin 2.9 (2.5-4.0) gm/dl Albumin/Globulin Ratio 1.1 (0.9-2) Urine Color Urine Appearance (Clear) Urine pH (4.5-7.5) Ur Specific [place] (1.000-1.030) Urine Protein (Negative) Urine Glucose (UA) (Negative) Urine Ketones (Negative) Urine Blood (Negative) Urine Nitrite (Negative) Urine Bilirubin (Negative) Urine Urobilinogen (Negative) Ur Leukocyte Esterase (Negative) Urine WBC (Auto) (0-5) /hpf Urine RBC (Auto) (0-2) /hpf U Hyaline Cast (Auto) (0-2) /lpf U Epithel Cells (Auto) (0-2) /hpf Urine Bacteria (Auto) (None Seen) Urine Comment Nasal Screen MRSA (PCR) (Negative) Random Vancomycin (10-20) mcg/ml Adenovirus (PCR) (NotDetected) B. pertussis DNA (PCR) (NotDetected) B.parapertussis DNA PCR (NotDetected) C. pneumoniae DNA (PCR) (NotDetected) Coronavirus OC43 (PCR) (NotDetected) Coronavirus HKU1 (PCR) (NotDetected) Coronavirus 229E (PCR) (NotDetected) SARS-CoV-2 (PCR) (NotDetected) Coronavirus NL63 (PCR) (NotDetected) Human Metapneumovir PCR (NotDetected) Influenza Type A (PCR) (NotDetected) Influenza Type B (PCR) (NotDetected) Urine Legionella Ag M. pneumoniae (PCR) (NotDetected) Parainfluenza 1 (PCR) (NotDetected) Parainfluenza 2 (PCR) (NotDetected) Parainfluenza 3 (PCR) (NotDetected) Parainfluenza 4 (PCR) (NotDetected) RSV (PCR) (NotDetected) Entero/Rhino (PCR) (NotDetected) Diagnostic Findings Chest X-Ray 04/13/25 10:06 SINGLE VIEW CHEST CLINICAL HISTORY: Dyspnea FINDINGS: An AP, portable, upright chest radiograph is compared to study dated 11/29/2021 and correlated with chest CT dated 08/04/2018. The examination is degraded by portable technique and patient rotation. The cardiomediastinal silhouette is top normal for projection noting atherosclerotic calcification of the thoracic aorta. There is pulmonary vascular congestion. There are bibasilar airspace opacities, left side greater than right. No large pleural effusion or pneumothorax is seen. The skeletal structures are osteopenic. The bony thorax is grossly intact. IMPRESSION: 1. Pulmonary vascular congestion. 2. There are bibasilar airspace opacities, left side greater than right. Correlate clinically for evidence of pneumonia/aspiration pneumonitis. Radiographic follow-up to resolution is recommended. ACT 112: Negative or not required by law. Electronically signed by: Sourav Acosta M.D. 04/13/2025 11:06 AM Chest CTA 04/13/25 11:52 CT pulmonary angiogram with IV contrast History: Shortness of breath COMPARISON: None TECHNIQUE: CT angiography of the chest was performed without IV contrast followed by IV contrast, including 3D post processing CTA image reconstruction. Dose reduction techniques were achieved by using automatic exposure control and/or adjustment of mA and/or kV according to patient size and/or use of iterative reconstruction technique. FINDINGS: Diagnostic quality: Adequate There is no evidence for pulmonary embolism. The heart is not enlarged. There is no pericardial effusion. There are no abnormally enlarged hilar or mediastinal lymph nodes. The central tracheobronchial tree is clear. Multifocal areas of nodular consolidative opacity throughout the lungs, with a lower lung predominance. Postobstructive confluent atelectasis seen at the periphery of both lung bases. There is no pleural effusion. Limited visualized upper abdomen. No destructive osseous changes are seen. IMPRESSION: No evidence for pulmonary embolism. Multifocal pneumonia. Electronically signed by Dusty Biggs 04-13-2025 6:16 PM Abdomen/Pelvis CT 04/13/25 13:55 EXAMINATION: CT of the abdomen and pelvis performed after the administration of IV contrast TECHNIQUE: Helical CT images from the lung bases through the symphysis pubis were obtained with contrast. Coronal and sagittal reformatted images were generated at a workstation for further assessment. Dose reduction techniques were achieved by using automatic exposure control and/or adjustment of mA and/or kV according to patient size and/or use of iterative reconstruction technique. COMPARISON: April 04, 2021 HISTORY: Abdominal pain FINDINGS: Liver: No suspicious liver lesions. Portal veins appear patent. Gallbladder: No gallstones. No evidence of acute cholecystitis. Spleen: Normal size. Pancreas: No suspicious pancreatic lesions. The pancreatic duct is not dilated. Adrenal glands: No adrenal nodules. Kidneys: No hydronephrosis or obstructing renal stones. Bladder / Pelvic organs: A [place] catheter is in place decompressing the urinary bladder. Mild free pelvic fluid. Bowel: No bowel obstruction. There is diffuse prominent wall thickening involving the large bowel. The sigmoid colon demonstrates mucosal hyperenhancement. The appendix is unremarkable. Diverticulosis without diverticulitis. Lymph nodes: No retroperitoneal, mesenteric, or pelvic lymphadenopathy. Peritoneum / Retroperitoneum: No free fluid or air within the abdomen. Vessels: No infrarenal aortic aneurysm. Bones and soft tissues: No suspicious lesion in the bones. Chronic deformity inferior right pubic ramus. IMPRESSION: Diffuse prominent wall thickening of the large bowel, suggestive of colitis. Electronically signed by Dusty Biggs 04-13-2025 6:18 PM Chest X-Ray 04/14/25 01:03 EXAM: XR chest 1V portable CLINICAL HISTORY: Shortness of breath. TECHNIQUE: An X-ray image of the chest is obtained in AP projection. 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 FINDINGS: Pulmonary Parenchyma: Scattered areas of increased airspace opacification in the right mid and lower zone, and left lower zone. No pulmonary nodules are identified. No evidence of pleural effusion or pleural thickening. Heart and Mediastinum: Heart size and shape are normal. No mediastinal widening or masses. No hilar or mediastinal lymphadenopathy. Bony Thorax: The bony thorax appears intact without fractures or deformities. Soft Tissues: Soft tissues overlying the chest wall are unremarkable. Overlying chest leads are seen. IMPRESSION: 1. Scattered areas of increased airspace opacification in the right mid/lower zone and left lower zone, concerning infective or inflammatory etiology. (unchanged). 2. Clinical/lab correlation and follow-up are suggested. Electronically signed by Leonardo Briscoe 04-14-2025 02:15 AM Chest X-Ray 04/15/25 07:00 EXAM: XR chest 1V portable CLINICAL HISTORY: Pneumonia TECHNIQUE: Radiograph of chest was acquired. 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 FINDINGS: Patchy ill defined opacities are seen in the lungs bilaterally with relative sparing of left middle zone. No pleural effusion. The cardiomediastinal silhouette is within normal limits. No acute osseous abnormality. IMPRESSION: 1. Patchy ill defined opacities are seen in lungs - suggestive of Bronchopneumonia - show progression in size and number. Electronically signed by Myles Mcclure 04-15-2025 08:12 AM PG Care Time/CCT Total # of Minutes Spent Total Time Spent with Patient: Total time spent is greater than 50% in coordination of care (as documented) at patient's floor/unit and/or counseling patient: I spent 65 minutes overall addressing this case: 15 min in medical data review/discussion with referring provider(s) and/or preparation for the visit 20 min in direct interaction with the patient/exam 000 min in Advance Care Planning/Goals of Care discussions as detailed above in note (must be >16min) 15 min in subsequent review and synthesis of assessment and plan 15 min communicating with other providers regarding the patient's case: nursing, primary team [place] [address] IN/OBS CONSULT LVL 4,60M Patient Type New History Comprehensive Exam Comprehensive Medical Decision Making High Complexity Diagnoses Dyspnea and respiratory abnormalities R06.00; R06.89 Weakness generalized R53.1 Palliative care by specialist Z51.5 Discussion about advance care planning held with family member Z71.0 Comment [id number]
--- NOTE | 2025-04-16 14:08 | Hospitalist Progress Note ---
Date of Service April 16, 2025 Assessment & Plan (1) Witnessed episode of apnea: (2) Vomiting: (3) Alzheimer's dementia: (4) Hyperlipidemia: (5) Lactic acid increased: (6) Dementia: Plan The patient is a 79-year-old female who presented to the ED on 04/13/2025 s/p vomiting episode and hypoxia with suspected aspiration pneumonia Acute hypoxic respiratory failure Multifocal/aspiration pneumonia Sepsis H/O ADELA on CPAP -- Respiratory BioFire positive for enterorhinovirus --MRSA screen positive --Chest CTA:No evidence for pulmonary embolism. Multifocal pneumonia. --Blood Cultures: Negative to date --Urine for Legionella pending --Continue vancomycin, Zosyn, azithromycin --Continue aspiration precautions --Speech eval when more awake --Appreciate pulmonology input -- BiPAP as needed -- Continue to wean supplemental oxygen as able Leukocytosis stable Consulted palliative care to address goals of care Ischemic colitis Lactic acidosis Had rectal bleed on 04/13/2025 --CT ABD:Diffuse prominent wall thickening of the large bowel, suggestive of colitis. -- Continue bowel rest, Zosyn, IV fluids Appreciate surgery input Monitor CBC No indication for blood transfusion currently Acute metabolic encephalopathy:POA Secondary to above Hx dementia Continue donepezil/Namenda Remains obtunded Will obtain CT head to rule out other etiologies Hypokalemia Replace and monitor Hx HLD/HTN: Hold amlodipine, lisinopril Continue statin Monitor blood pressure--resume as able Hx hypothyroidism: Continue levothyroxine Prediabetes HbA1c 5.9 DVT Px Lovenox SQ CODE STATUS Full code as per patient's son. Discussed on multiple occasions. Palliative care consulted to address goals of care Admission and Anticipated Discharge Date Admission Date: April 13, 2025 Subjective Patient is seen and examined at bedside Obtunded, does not respond to sternal rub Sinus tachycardia on monitor Discussed with palliative care Saturating well on 4 L supplemental oxygen No recurrence of rectal bleeding No distress on exam Updated patient's daughter over the phone. Review of Systems Review of Systems: All systems reviewed & are unremarkable except as noted in Subjective Physical Exam Physical Exam: Physical Exam: Vitals signs as noted above General Appearance:Moderately built and nourished, no apparent distress, obtunded Head: normocephalic, Atraumatic Eyes: normal inspection Neck: supple, Trachea midline Respiratory/Chest: Coarse breath sounds, b/l rhonchi, No accessory muscle use Cardiovascular: S1, S2, No murmur, tachycardia Abdomen/GI:Soft, mildly distended, non tender, Bowel sounds present Extremities/Musculoskeletal:normal inspection, 1+ edema Neurologic/Psych:Obtunded, unable to perform complete neurological exam Skin: normal color, warm Results & Data Results & Data Vital Signs (Past 12 Hours) Vital Signs Temp Pulse Pulse Resp BP BP Pulse Ox 04/16/25 11:09 106 H 24 94 04/16/25 10:42 37.3 C 119 H 16 146/89 H 93 04/16/25 09:09 108 H 04/16/25 09:09 04/16/25 07:24 37.5 C 130 H 18 145/93 H 95 04/16/25 07:08 120 H 27 H 94 04/16/25 07:08 120 H 27 H 94 04/16/25 02:58 37.1 C 98 H 17 155/89 H 94 04/16/25 02:25 108 H 28 H 95 04/16/25 02:24 108 H 28 H 95 O2 Del Method O2 Flow Rate FiO2 04/16/25 11:09 Nasal Cannula 4 04/16/25 10:42 BiPAP 04/16/25 09:09 04/16/25 09:09 BiPAP 04/16/25 07:24 BiPAP 04/16/25 07:08 BiPAP 30 04/16/25 07:08 30 04/16/25 02:58 BiPAP 04/16/25 02:25 30 04/16/25 02:24 BiPAP 30 Laboratory Results Short CBC 04/16/25 Range/Units 05:21 WBC 24.99 H (4.8-10.8) K/ul Hgb 11.4 L (12.0-16.0) g/dl Hct 35.1 L (37.0-47.0) % Plt Count 273 (130-400) K/uL BMP 04/16/25 05:21 Sodium 138 Potassium 3.2 L Chloride 105 Carbon Dioxide 25 BUN 9 Creatinine 0.61 Glucose 115 H Calcium 8.8 (2) Vomiting Nausea presence: unspecified Vomiting Intractability: unspecified Vomiting type: unspecified Qualified Code(s): R11.10 - Vomiting, unspecified (6) Dementia Dementia type: unspecified type Dementia behavioral disturbance: without behavioral disturbance Qualified Code(s): F03.90 - Unspecified dementia without behavioral disturbance
[2025-04-16] MEDS: ACETAMINOPHEN 1,000 MG/100 ML VIAL IV PRN (15:30)
--- NOTE | 2025-04-16 15:37 | CT Scan Report ---
CT SCAN OF THE BRAIN WITHOUT IV CONTRAST CLINICAL HISTORY: Change in mental status. COMPARISON STUDY: CT of the brain dated 11/29/2021 TECHNIQUE: Unenhanced axial CT scan of the brain is performed from the vertex to the skull base. Imag es are reviewed in the axial, sagittal, coronal planes. A dose lowering technique was utilized adheri ng to the principles of ALARA. CT DOSE: 625.8 mGy.cm FINDINGS: Brain parenchyma: There is age-related involutional change noting advanced confluent subcortical and periventricular microangiopathic disease. There is no hemorrhage, mass effect, or evidence of acute t erritorial ischemia by CT criteria. There is an age indeterminate lacunar infarct in the left thalamu s. Valenzuela-white matter differentiation is preserved. No extra-axial fluid collection is seen. Ventricles, sulci, cisterns: Prominent secondary to involutional change. Ventriculomegaly is similar to the 2021 examination. Intracranial vasculature: There is atherosclerotic calcification of the cavernous carotid and vertebr al arteries. Calvarium: Unremarkable. Sinuses and mastoids: There is moderate mucosal thickening and fluid in the left maxillary sinus as w ell as within the sphenoid sinuses. Trace mucosal thickening is noted in the ethmoid sinuses. There i s a right mastoid effusion. The left mastoid air cells are well pneumatized. Orbits: The bony orbits are grossly intact. IMPRESSION: 1. There is no hemorrhage, mass effect, or evidence of acute territorial ischemia by CT criteria. 2. There is an age indeterminate lacunar infarct in the left thalamus which was not clearly seen in 2 022. If there is strong clinical concern for acute ischemia an MRI could be considered for further as sessment. 3. Paranasal sinus disease as above. ACT 112: Negative or not required by law. Electronically signed by: Sourav Acosta M.D. 04/16/2025 3:35 PM
[2025-04-16] MEDS: GADOBUTROL 65ML VIAL IV ONE (20:12)
[2025-04-16] MEDS: D5NSS + 20MEQ KCL 20 MEQ/1,000 ML BAG IV ONE (21:53)
--- NOTE | 2025-04-16 22:44 | Magnetic Resonance Report ---
Exam(s): MRI HEAD W/WO Contrast IV Amt: 6mL Gadavist given existing IV EXAM: MR Head Without and With Intravenous Contrast CLINICAL HISTORY: Reason for exam: Altered mental status. TECHNIQUE: Magnetic resonance images of the head/brain without and with intravenous contrast in multiple planes. CONTRAST: Patient received 6mL Gadavist given existing IV of IV contrast COMPARISON: Prior head CT from April 16 2025. FINDINGS: Study is limited secondary to motion artifact. Brain: Advanced nonspecific white matter changes. Remote ischemic injuries of the thalami. Advanced atrophy of the cerebral parenchyma. The flow voids of the base of the brain are intact. No mass. No hemorrhage. No acute infarct. No evidence of abnormal enhancement of the brain parenchyma. There is hemosiderin seen in the medial right cerebellum, which may represent the sequelae of remote intraparenchymal hemorrhage. Ventricles: Advanced ventriculomegaly. Bones/joints: Unremarkable. No acute fracture. Sinuses: Unremarkable for chronic sphenoid and left maxillary sinusitis.. No acute sinusitis. Mastoid air cells: There is a moderate amount of fluid in the right mastoid air cells. No mastoid effusion. Orbits: Unremarkable as visualized. IMPRESSION: No evidence of acute intracranial pathology. Electronically signed by: Radha Gasca MD 04/16/25 22:43 PM
[2025-04-17 06:29] LABS: Hematocrit (blood only) 34.0 % (37.0-47.0); Hemoglobin 11.4 g/dl (12.0-16.0); Mean Corpuscular Hemoglobin 29.9 pg (25.0-34.0); Mean Corpuscular Volume 89.2 fL (80.0-100.0); Platelet Count 289 K/uL (130-400); RDW Standard Deviation 45.3 fL (36.4-46.3); Red Blood Count 3.81 M/uL (4.20-5.40); White Blood Count 21.74 K/ul (4.8-10.8)
[2025-04-17 06:50] LABS: Anion Gap 7.0 (3-11); Blood Urea Nitrogen 9.0 mg/dl (6-23); Calcium 8.7 mg/dl (8.6-10.3); Carbon Dioxide 25.0 mmol/L (21-32); Chloride 108.0 mmol/L (98-107); Creatinine Clr Calc Pharmacy 63.8 ml/min; Glucose 151.0 mg/dl (70-99(Fasting)); Potassium 3.0 mmol/L (3.5-5.1); Sodium 140.0 mmol/L (136-145)
[2025-04-17] MEDS: POTASSIUM CHLORIDE / WTR 10 MEQ/100 ML PLCT IV SCH (08:27)
[2025-04-17] MEDS: PIPERACILLIN/TAZOBACTAM 4.5 GM/100 ML BAG IV STA (08:52)
--- NOTE | 2025-04-17 11:11 | XRay Report ---
EXAM: Radiograph of the Chest 1 View INDICATION: Pneumonia TECHNIQUE: Frontal view of the chest. COMPARISON: 04/15/2025 FINDINGS: Lungs and pleural spaces: Worsening bilateral vascular congestion and increased confluence of airspace consolidation in the right apex. There is new airway thickening and groundglass opacity within the left base. Other multifocal infiltrates unchanged. No pleural effusion or pneumothorax. Heart: Shape and configuration within normal limits allowing for technique. Mediastinum: Normal contour. Bones/joints: No fracture, erosion or dislocation. Soft tissues: No abnormality noted. No radiopaque foreign body noted. Vasculature: Stable ectatic aorta. Upper abdomen: No abnormality noted. IMPRESSION: Worsening multifocal bilateral pneumonia. ACT 112: N/A Electronically signed by Alba Spear 04-17-2025 11:11 AM
--- NOTE | 2025-04-17 13:48 | Hospitalist Progress Note ---
Date of Service April 17, 2025 Assessment & Plan (1) Witnessed episode of apnea: (2) Vomiting: (3) Alzheimer's dementia: (4) Hyperlipidemia: (5) Lactic acid increased: (6) Dementia: Plan The patient is a 79-year-old female who presented to the ED on 04/13/2025 s/p vomiting episode and hypoxia with suspected aspiration pneumonia Acute hypoxic respiratory failure Multifocal/aspiration pneumonia Sepsis H/O ADELA on CPAP -- Respiratory BioFire positive for enterorhinovirus --MRSA screen positive --Chest CTA:No evidence for pulmonary embolism. Multifocal pneumonia. --Blood Cultures: Negative to date --Urine for Legionella:negative --Continue vancomycin, Zosyn, azithromycin --Continue aspiration precautions --Speech eval when more awake --Appreciate pulmonology input -- BiPAP as needed -- Continue to wean supplemental oxygen as able Leukocytosis trending down Consulted palliative care to address goals of care No significant improvement clinically despite aggressive management Ischemic colitis Lactic acidosis Had rectal bleed on 04/13/2025 --CT ABD:Diffuse prominent wall thickening of the large bowel, suggestive of colitis. -- Continue bowel rest, Zosyn, IV fluids Appreciate surgery input Monitor CBC Consideration for parenteral nutrition if remains obtunded Acute metabolic encephalopathy:POA Secondary to above Hx dementia --MRI brain:No evidence of acute intracranial pathology. Continue donepezil/Namenda as able Remains obtunded Hypokalemia Replace and monitor Hx HLD/HTN: Hold amlodipine, lisinopril for now Continue statin Blood pressure stable off medication Monitor blood pressure --resume home meds as able Hx hypothyroidism: Continue levothyroxine Prediabetes HbA1c 5.9 DVT Px Lovenox SQ CODE STATUS Full code as per patient's son. Discussed on multiple occasions. Palliative care consulted to address goals of care Admission and Anticipated Discharge Date Admission Date: April 13, 2025 Subjective Patient is seen and examined at bedside Remains Obtunded Discussed with patient's son and daughter at bedside today Chest x-ray showed worsening pneumonia Afebrile today No distress on exam Leukocytosis trending down Blood cultures remain negative Review of Systems Review of Systems: Unobtainable due to reduced consciousness Physical Exam Physical Exam: Physical Exam: Vitals signs as noted above General Appearance:Moderately built and nourished, no apparent distress, obtunded Head: normocephalic, Atraumatic Eyes: normal inspection Neck: supple, Trachea midline Respiratory/Chest: Coarse breath sounds, b/l rhonchi, No accessory muscle use Cardiovascular: S1, S2, No murmur, tachycardia Abdomen/GI:Soft, mildly distended, non tender, Bowel sounds present Extremities/Musculoskeletal:normal inspection, 1+ edema Neurologic/Psych:Obtunded, unable to perform complete neurological exam Skin: normal color, warm Results & Data Results & Data Vital Signs (Past 12 Hours) Vital Signs Temp Pulse Pulse Resp BP Pulse Ox O2 Del Method 04/17/25 11:11 36.9 C 97 H 22 112/73 93 Nasal Cannula 04/17/25 11:02 83 24 98 04/17/25 10:58 83 24 98 BiPAP 04/17/25 08:00 BiPAP 04/17/25 07:23 38.8 C H 120 H 20 169/95 H 91 BiPAP 04/17/25 07:11 115 H 29 H 93 04/17/25 07:10 115 H 29 H 93 BiPAP 04/17/25 07:00 107 H 04/17/25 02:55 37.3 C 112 H 17 138/84 97 BiPAP 04/17/25 02:12 111 H 28 H 92 BiPAP 04/17/25 02:12 111 H 29 H 92 O2 Flow Rate FiO2 04/17/25 11:11 4 04/17/25 11:02 30 04/17/25 10:58 30 04/17/25 08:00 04/17/25 07:23 04/17/25 07:11 30 04/17/25 07:10 30 04/17/25 07:00 04/17/25 02:55 30 04/17/25 02:12 30 04/17/25 02:12 30 Laboratory Results Short CBC 04/17/25 Range/Units 06:05 WBC 21.74 H (4.8-10.8) K/ul Hgb 11.4 L (12.0-16.0) g/dl Hct 34.0 L (37.0-47.0) % Plt Count 289 (130-400) K/uL BMP 04/17/25 06:05 Sodium 140 Potassium 3.0 L Chloride 108 H Carbon Dioxide 25 BUN 9 Creatinine 0.59 L Glucose 151 H Calcium 8.7 (2) Vomiting Nausea presence: unspecified Vomiting Intractability: unspecified Vomiting type: unspecified Qualified Code(s): R11.10 - Vomiting, unspecified (6) Dementia Dementia type: unspecified type Dementia behavioral disturbance: without behavioral disturbance Qualified Code(s): F03.90 - Unspecified dementia without behavioral disturbance
[2025-04-17] MEDS ORDERED: POTASSIUM CHLORIDE 40 MEQ in D5W AND 0.2% NaCL 1,000 ML IV SCH (14:10)
[2025-04-17] MEDS: PIPERACILLIN/TAZOBACTAM 4.5 GM/100 ML BAG IV SCH (14:30)
[2025-04-17] MEDS: POTASSIUM CHLORIDE 40 MEQ in D5W AND 1/2NSS 1,000 ML IV SCH (14:52)
[2025-04-18 05:34] LABS: Hematocrit (blood only) 34.1 % (37.0-47.0); Hemoglobin 11.3 g/dl (12.0-16.0); Mean Corpuscular Hemoglobin 30.2 pg (25.0-34.0); Mean Corpuscular Volume 91.2 fL (80.0-100.0); Platelet Count 265 K/uL (130-400); RDW Standard Deviation 47.8 fL (36.4-46.3); Red Blood Count 3.74 M/uL (4.20-5.40); White Blood Count 15.05 K/ul (4.8-10.8)
[2025-04-18 05:57] LABS: Anion Gap 6.0 (3-11); Blood Urea Nitrogen 8.0 mg/dl (6-23); Calcium 8.8 mg/dl (8.6-10.3); Carbon Dioxide 25.0 mmol/L (21-32); Chloride 110.0 mmol/L (98-107); Creatinine Clr Calc Pharmacy 47.5 ml/min; Glucose 126.0 mg/dl (70-99(Fasting)); Magnesium 1.9 mg/dl (1.7-2.4); Potassium 3.7 mmol/L (3.5-5.1); Sodium 141.0 mmol/L (136-145)
[2025-04-18] MEDS ORDERED: LEVALBUTEROL 0.31MG/3 ML VIAL NEB PRN (07:39)
[2025-04-18 07:41] VITALS: TEMP 98.8
[2025-04-18 08:11] LABS: iSTAT Art Bld Gas Base Excess -4.0 meg/L (-9-1.8)
[2025-04-18] MEDS: FUROSEMIDE INJ 20 MG/2 ML VIAL IV ONE ×2 (08:12→08:33)
--- NOTE | 2025-04-18 08:20 | XRay Report ---
EXAM: Radiograph of the Chest 1 View INDICATION: Hypoxia TECHNIQUE: Frontal view of the chest. COMPARISON: 04/15/2025 FINDINGS: Lungs and pleural spaces: New and increased multifocal infiltrates in the right lung with most significant change in the upper lobe. Increased patchy airspace disease in the left lung. Stable very small bilateral pleural effusions. No pneumothorax. Heart: Shape and configuration within normal limits allowing for technique. Mediastinum: Normal contour. Bones/joints: No fracture, erosion or dislocation. Soft tissues: No abnormality noted. No radiopaque foreign body noted. Upper abdomen: No abnormality noted. IMPRESSION: Worsening bilateral pulmonary infiltrates. ACT 112: N/A Electronically signed by Alba Spear 04-18-2025 08:19 AM
[2025-04-18] MEDS: POTASSIUM CHLORIDE / WTR 10 MEQ/100 ML PLCT IV SCH (08:32)
[2025-04-18] MEDS: MAGNESIUM SULFATE / D5W 1 GM/100 ML BAG IV ONE (08:33)
[2025-04-18] MEDS: OPTIRAY 320 125ml IV ONE (09:19)
[2025-04-18] MEDS: METOPROLOL TARTRATE 1 MG/ML VIAL IV SCH (09:23)
--- NOTE | 2025-04-18 09:39 | CT Scan Report ---
EXAM: CT Angiography Chest With Intravenous Contrast INDICATION: Pneumonia and hypoxia. TECHNIQUE: Axial computed tomographic angiography images of the chest with intravenous contrast. Sagittal and coronal reformatted images were created and reviewed. This CT exam was performed using one or more of the following dose reduction techniques: automated exposure control, adjustment of the mA and/or kV according to patient size, and/or use of iterative reconstruction technique. MIP reconstructed images were created and reviewed. CONTRAST: 70ml of Optiray 320 was administered intravenously. COMPARISON: The easiest FINDINGS: Pulmonary arteries: No abnormality noted. No pulmonary embolism. Aorta: Atherosclerotic calcification of the aorta and branches. No aneurysm. Lungs and pleural spaces: There is significant increase in multifocal consolidative and groundglass infiltrates in both lungs. There is increased dependent consolidation in the lower lobes and small pleural effusions. No pneumothorax. Heart: Motion artifact limits assessment of the pulmonary arteries. No evidence of embolus. Stable cardiomegaly. No right heart strain or pericardial effusion. Bones/joints: Degenerative changes noted in the scoliotic spine. No acute osseous abnormality noted. Soft tissues: No abnormality noted. Lymph nodes: No abnormality noted. No enlarged lymph nodes. IMPRESSION: 1. Worsening bilateral pneumonia and small pleural effusions. 2. Limited assessment due to motion. No pulmonary embolus noted. ACT 112: N/A Electronically signed by Alba Spear 04-18-2025 09:39 AM
[2025-04-18] MEDS: ENOXAPARIN INJ 40 MG/0.4 ML SYR SQ SCH (10:24)
--- NOTE | 2025-04-18 11:16 | Hospitalist Progress Note ---
Date of Service April 18, 2025 Assessment & Plan (1) Witnessed episode of apnea: (2) Vomiting: (3) Alzheimer's dementia: (4) Hyperlipidemia: (5) Lactic acid increased: (6) Dementia: Plan The patient is a 79-year-old female who presented to the ED on 04/13/2025 s/p vomiting episode and hypoxia with suspected aspiration pneumonia Acute hypoxic respiratory failure ARDS Multifocal/aspiration pneumonia Sepsis H/O ADELA on CPAP -- Respiratory BioFire positive for enterorhinovirus --MRSA screen positive --Chest CTA:No evidence for pulmonary embolism. Multifocal pneumonia. --Blood Cultures: Negative --Urine for Legionella:negative --Continue vancomycin, Zosyn, azithromycin --Continue aspiration precautions --Speech eval when more awake --Appreciate pulmonology input -- BiPAP as needed -- Continue to wean supplemental oxygen as able Leukocytosis trending down Consulted palliative care to address goals of care No significant improvement clinically despite aggressive management Appreciate critical care input On further discussion by critical care team with patient's family, patient's family prefers patient to be transition to comfort measures only. CODE STATUS changed to DNI DNR per family's request given critically ill patient with advan lisa dementia. Continue comfort measures only Ischemic colitis Lactic acidosis Had rectal bleed on 04/13/2025 --CT ABD:Diffuse prominent wall thickening of the large bowel, suggestive of co litis. -- Continue bowel rest, Zosyn, IV fluids Appreciate surgery input Monitor CBC Acute metabolic encephalopathy:POA Secondary to above Hx dementia --MRI brain:No evidence of acute intracranial pathology. Continue donepezil/Namenda as able Remains obtunded Hypokalemia Replace and monitor Hx HLD/HTN: Hold amlodipine, lisinopril for now Continue statin Blood pressure stable off medication Monitor blood pressure --resume home meds as able Hx hypothyroidism: Continue levothyroxine Prediabetes HbA1c 5.9 DVT Px Lovenox SQ CODE STATUS DNI DNR Admission and Anticipated Discharge Date Admission Date: April 13, 2025 Subjective Patient is seen and examined at bedside Clinically deteriorated this morning Was found to be tachypneic, tachycardic and hypoxic despite being on BiPAP CT imaging suggestive of worsening bilateral pneumonia, no PE Given worsening respiratory status, transferred to ICU for further management Discussed with patient's family at bedside Review of Systems Review of Systems: All systems reviewed & are unremarkable except as noted in Subjective Physical Exam Physical Exam: Physical Exam: Vitals signs as noted above General Appearance:Moderately built and nourished, + resp distress, obtunded Head: normocephalic, Atraumatic Eyes: normal inspection Neck: supple, Trachea midline Respiratory/Chest: Coarse breath sounds, b/l rhonchi, tachypnea,+accessory muscle use Cardiovascular: S1, S2, No murmur, tachycardia Abdomen/GI:Soft, mildly distended, non tender, Bowel sounds present Extremities/Musculoskeletal:normal inspection, 1+ edema Neurologic/Psych:Obtunded, unable to perform complete neurological exam Skin: normal color, warm Results & Data Results & Data Vital Signs (Past 12 Hours) Vital Signs Temp Pulse Pulse Resp BP BP Pulse Ox 04/18/25 10:57 123 H 33 H 92 04/18/25 09:46 116 H 04/18/25 09:23 149 H 04/18/25 08:57 04/18/25 07:37 37.1 C 135 H 22 166/69 H 93 04/18/25 07:06 140 H 32 H 92 04/18/25 02:57 36.6 C 78 20 106/71 98 04/18/25 02:17 78 21 95 04/18/25 02:17 78 21 95 04/17/25 23:24 98 H 26 H 96 04/17/25 23:24 98 H 26 H 96 O2 Del Method FiO2 04/18/25 10:57 35 04/18/25 09:46 04/18/25 09:23 04/18/25 08:57 BiPAP 35 04/18/25 07:37 BiPAP 04/18/25 07:06 30 04/18/25 02:57 BiPAP 04/18/25 02:17 BiPAP 30 04/18/25 02:17 30 04/17/25 23:24 BiPAP 30 04/17/25 23:24 30 (2) Vomiting Nausea presence: unspecified Vomiting Intractability: unspecified Vomiting type: unspecified Qualified Code(s): R11.10 - Vomiting, unspecified (6) Dementia Dementia behavioral disturbance: without behavioral disturbance Dementia type: unspecified type Qualified Code(s): F03.90 - Unspecified dementia without behavioral disturbance
--- NOTE | 2025-04-18 11:59 | Critical Care Consultation ---
Date of Consultation April 18, 2025 Assessment & Plan (1) ARDS (adult respiratory distress syndrome): Patient progressing to ARDS. She has severe tachypnea and hypoxemia. Patient's daughter and son discussing regarding patient's CODE STATUS to make decision regarding intubation versus proceeding with comfort measures. We did discuss that given her severe dementia and aphasia at baseline, her prognosis generally is poor and that she may be difficult to extubate if she were to become intubated. We will certainly intubate the patient and treat her as an ARDSnet protocol if the family decides to proceed with intubation and mechanical ventilation. Again, awaiting their decision. (2) Acute pneumonia: Viral panel positive for rhinovirus. Urine Legionella antigen pending. MRSA screen positive. Agree with Zosyn and vancomycin. Continue azithromycin as well. Chest CT with worsening multifocal pneumonia. Patient progressing to ARDS. (3) Acute respiratory failure with hypoxia: As above, patient progressing to ARDS. Will start hydrocortisone 50 mg every 6 hours given severe bacterial pneumonia overlying viral pneumonia. (4) Nausea & vomiting: CT abdomen pelvis consistent with probable ischemic colitis. Appreciate general surgery consultation. Lactic acidosis improving. Zosyn should cover for colitis as well. Abdomen less firm today. Appreciate surgery input. Patient NPO. (5) Firmness of abdomen: CT abdomen/pelvis results as above. (6) Discussion about advance care planning held with family member: Lengthy discussion with the patient's daughter and son regarding CODE STATUS and possible intubation and mechanical ventilation. We also discussed the possibility of transitioning to comfort measures only as opposed to more aggressive measures and they are considering this option. They do understand that if we transition to comfort measures only that she may pass in the next few hours to days. Plan Thank you for the consult. I spent 15 minutes reviewing the electronic medical record/relevant imaging, 30 minutes discussing diagnosis and treatment plan with patient/family, and 30 minutes discussing care plan with ancillary staff such as RT/RN/pharmacist/end touching machine operator/PT/OT/other consulting medical services. CRITICAL CARE TIME I have personally spent 83 minutes of critical care time in the direct management of this patient. This is a life/limb threatening event. This includes time spent evaluating patient, direct bedside care, chart review, placing orders, interpretation of diagnostic studies, discussion with consultants, patient, and family members, as well as other required patient management activities. This time is exclusive of all separately billable procedures, and teaching time and separate from and in addition to any other critical care service time. History of Present Illness Reason for Consultation: Severe hypoxemic respiratory failure with ARDS secondary to aspiration pneumonia Attending Physician: Jose Sanabria MD History of Present Illness I am familiar with this patient on the pulmonary consult service. She was admitted to the hospital with aspiration pneumonia. This past evening and morning she has progressively worsened with needing continuous BiPAP support and severe tachypnea. Chest CT reveals worsening bilateral infiltrates. She has been on vancomycin, Zosyn and azithromycin. Cultures have been negative thus far from her blood. She has produced minimal sputum and her cough is very weak. Respiratory viral panel on admission was positive for rhinovirus. She has had periods of SVT and has required metoprolol for rate control at times. She is transferred to the ICU for closer monitoring and potential need for intubation mechanical ventilation pending patient's daughter and son's decision. She is minimally responsive and has been aphasic for the past 5 years. Blood gas this morning suggestive of mild metabolic acidosis with a pH of 7.35 bicarb of 21 and a pCO2 of 39. PO2 is 66 on BiPAP. Allergies Allergy/AdvReac Type Severity Reaction Status Date / Time No Known Allergies Allergy Verified 04/13/25 13:29 Home Medications Medication Instructions Recorded Confirmed Type aspirin 81 mg tablet,delayed 81 mg PO QAM 08/27/18 04/13/25 History release cholecalciferol (vitamin D3) 25 1,000 unit PO QAM 08/27/18 04/13/25 History mcg (1,000 unit) capsule (Vitamin D3) donepezil 10 mg tablet 10 mg PO QAM 08/27/18 04/13/25 History lisinopril 20 mg tablet 20 mg PO BID 08/27/18 04/13/25 History melatonin 1 mg tablet 2 mg PO HS 08/27/18 04/13/25 History simvastatin 20 mg tablet 20 mg PO QPM 08/27/18 04/13/25 History venlafaxine 37.5 mg 37.5 mg PO QAM 08/27/18 04/13/25 History capsule,extended release 24 hr amlodipine 2.5 mg tablet 2.5 mg PO QAM 04/27/20 04/13/25 History famotidine 20 mg tablet 20 mg PO BID 03/02/21 04/13/25 History acetaminophen 325 mg tablet 650 mg PO Q4H PRN Fever 04/13/25 04/13/25 History acetaminophen 325 mg tablet 650 mg PO Q4H PRN Pain 04/13/25 04/13/25 History bisacodyl 10 mg rectal suppository 10 mg DC DAILY PRN Constipation 04/13/25 04/13/25 History guaifenesin 100 mg/5 mL oral liquid 200 mg PO Q4H PRN Cough 04/13/25 04/13/25 History ipratropium 0.5 mg-albuterol 3 mg 3 ml inhalation QID Pneumonia 04/13/25 04/13/25 History (2.5 mg base)/3 mL nebulization soln levothyroxine 75 mcg tablet 75 mcg PO QAM 04/13/25 04/13/25 History magnesium hydroxide 400 mg/5 mL 2,400 mg PO DAILY PRN Constipation 04/13/25 04/13/25 History oral suspension (Milk of Magnesia) memantine 10 mg tablet 10 mg PO BID 04/13/25 04/13/25 History omeprazole 20 mg capsule,delayed 20 mg PO BID 04/13/25 04/13/25 History release psyllium husk 3.4 gram/5.4 gram 1 tsp PO QAM 04/13/25 04/13/25 History oral powder (Metamucil) Patient History Medical History (Updated 04/18/25 @ 11:56 by Jc Fernandez MD) Vomiting Witnessed episode of apnea Snoring Alzheimer's dementia Diverticulitis Family History Mother No pertinent family history Father No pertinent family history Family/Other No pertinent family history Other Family history of heart disease Family history of stroke Social History Smoking Status: Unknown if ever smoked Second Hand Exposure: No; Do You Dip or Chew Tobacco: No; Hx Alcohol Use: No Hx Substance Use: No Preferred Language: [place] Communication Ability: Impaired Communication Ability Comment: Son with pt. Communication Tools: Facial Expression and Physical Gestures Information Assurance Manager Required: No Beliefs That Will Affect Care: None Current Living Situation: Half-Way Current Living Situation Comment: skilled current occupational status: retired other: Minimally verbal, occasional delusions, ambulatory dysfunction d/t dementia Feels Safe at Home: Yes Diet Comment: high fiber caffeine: No Gender Identity: Female Assistive Devices: Mechanical Lift and Wheelchair Review of Systems Review of Systems: Unobtainable due to cognitive status Physical Exam Physical Exam: Constitutional: Severe distress. Minimally responsive. On BiPAP. Eyes: Pupils are equal round and reactive to light. Conjunctivae are normal. Anicteric sclera. Ears nose, mouth and throat: Nasal cannula in place. Neck: Trachea is midline. Visual inspection is normal. Respiratory: Diffuse harsh rhonchi with increased tachypnea. Cardiovascular: Tachycardic. Regular rhythm. No murmurs. No edema. Gastrointestinal: Abdomen softer today with less tenderness to palpation. Musculoskeletal: No cyanosis. Patient is able to move all extremities. Skin: No rashes, warm dry and intact. Neurologic: No obvious focal neurological deficits seen. Psychiatric: Confused. Results & Data Results & Data Vital Signs (Past 12 Hours) Vital Signs Temp Pulse Pulse Resp BP BP Pulse Ox 04/18/25 10:57 123 H 33 H 92 04/18/25 09:46 116 H 04/18/25 09:23 149 H 04/18/25 08:57 04/18/25 07:37 37.1 C 135 H 22 166/69 H 93 04/18/25 07:06 140 H 32 H 92 04/18/25 02:57 36.6 C 78 20 106/71 98 04/18/25 02:17 78 21 95 04/18/25 02:17 78 21 95 O2 Del Method FiO2 04/18/25 10:57 35 04/18/25 09:46 04/18/25 09:23 04/18/25 08:57 BiPAP 35 04/18/25 07:37 BiPAP 04/18/25 07:06 30 04/18/25 02:57 BiPAP 04/18/25 02:17 BiPAP 30 04/18/25 02:17 30 Coding Level of Care Code 04662 Prolonged Care (int'l) Diagnoses ARDS (adult respiratory distress syndrome) J80 Acute pneumonia J18.9 Acute respiratory failure with hypoxia J96.01 Nausea & vomiting R11.2 Firmness of abdomen R19.8 Discussion about advance care planning held with family member Z71.0 Time Spent (min) 83
[2025-04-18] MEDS ORDERED: ONDANSETRON INJ 2 MG/ML 2 ML VIAL IV PRN ×2 (12:12→12:37)
[2025-04-18] MEDS ORDERED: MoRPHine SULFATE 2 MG/ML CARP IV PRN ×2 (12:12→12:37)
[2025-04-18] MEDS ORDERED: STAT IV Infusion **Titration per Protocol STA (12:12)
[2025-04-18] MEDS ORDERED: MoRPHine SULFATE 10 MG/0.5 ML UDP PO PRN ×2 (12:12→12:37)
[2025-04-18] MEDS ORDERED: ONDANSETRON 4 MG OD TAB SL PRN (12:12)
--- NOTE | 2025-04-18 12:16 | Communication Note ---
Date of Service: April 18, 2025 I had a discussion with the patient's daughter, Chantel Weaver, and son, El Ibarra, outside the patient's room regarding the patient's CODE STATUS and general condition. They are both in agreement that at this point their mother is critically ill and showing progressive signs of severe pneumonia and hypoxemia. They understand that their mother's condition is poor at baseline and she is bedbound and has had advanced dementia over the past 5 years. They feel that her wishes at this point would be to be a DNR/DNI and to proceed with comfort measures only given her acutely critically ill condition and underlying significant comorbidity of severe dementia. Comfort measures have been ordered and the bedside nurse has been instructed to give the patient 3 mg of IV morphine now. Will transition the BiPAP off once the patient is more comfortable and provide the patient with supplemental oxygen as needed for comfort. Will also provide the patient with as needed Ativan, Zofran and atropine drops. This information was also relayed to the hospitalist via encrypted text who notes that he will come down later to also discuss with the family.
[2025-04-18] MEDS: MoRPHine SULFATE 4 MG/ML 1 ML CARP\\VIAL IV STA (12:37)
[2025-04-18] MEDS ORDERED: GLYCOPYRROLATE 0.2 MG/ML VIAL IV PRN (12:37)
[2025-04-18] MEDS ORDERED: ACETAMINOPHEN 325 MG TAB PO PRN (12:37)
[2025-04-18] MEDS: MoRPHine SULFATE 4 MG/ML 1 ML CARP\\VIAL ONE (12:42)
[2025-04-18] MEDS: MoRPHine SULF 100 MG/100 ML BAG IV SCH (12:54)
[2025-04-18] MEDS: HYDROCORTISONE SOD 50 MG in SYRINGE 0 ML IV SCH (13:12)
[2025-04-18 15:34] VITALS: BP 142/83; O2SAT 97
[2025-04-18 17:21] VITALS: PULSE 99; RESP 19
--- NOTE | 2025-04-19 10:52 | Electrocardiogram Report ---
Test Reason : Blood Pressure : */* mmHG Vent. Rate : 143 BPM Atrial Rate : 143 BPM P-R Int : 120 ms QRS Dur : 74 ms QT Int : 268 ms P-R-T Axes : 49 22 59 degrees QTcB Int : 413 ms Sinus tachycardia Nonspecific ST abnormality Abnormal ECG When compared with ECG of 16-Apr-2025 08:15, No significant change was found Confirmed by Moreno Aparicio ([id number]) on 04/19/2025 10:52:09 AM Referred By: REFERRED SELF Confirmed By: Moreno Aparicio
[2025-04-19] MEDS: ATROPINE SULFATE 1% OP SOLN 5 ML BTL SL PRN (11:13)
--- NOTE | 2025-04-19 12:02 | Palliative Care Progress Note ---
Date of Service April 19, 2025 Assessment & Plan (1) Palliative care by specialist: Plan: Palliative care will continue to follow for ongoing EOL pt care and family support. Met with pt's son at bedside, he expressed feeling thankful for care pt is getting and that she appears comfortable. Anticipatory guidance offered. Discussed changes pt may move through in the dying process including but not limited to sleeping more, disorientation when awake, restlessness, diminished senses/inability to respond to stimulus although ability to be aware of them remains intact longer, and changes in body temperatures, skin changes/mottling/cyanosis, respiratory pattern changes, and oral secretions. Family verbalized understanding. The goal is to assure a peaceful . (2) Comfort measures only status: Plan: Pt transitioned to [employer] on 04/18/25, is requiring frequent PRN medications for comfort. (3) Need for comfort care: Plan: EOL Symptom manamgement: Pain/dyspnea/tachypnea morphine 2mg IVP PRN [id number] Consider titratable morphine drip if pt requires >3 PRN doses in under two consecutive hours. Nausea/vomitting zofran 4mg IVP q4h PRN Agitation ativan 0.5mg IVP q4h PRN Hyperactive delirium haldol 5mg IVP q6h PRN Secretions - if repositioning not effective robinul 0.4mg IV q4h PRN atropine SL 3 drops Q1h PRN Nursing care: Discontinue all medications not directed towards comfort. Detether pt from IV tubing, monitor cables, and check vitals once per shift. Please continue HFNC and titrate down as able for patient comfort. Use medications above PRN for dyspnea/tachypnea and do not increase oxygen once titrated down. Assess q1h for pain/dyspnea and treat accordingly. Admission and Anticipated Discharge Date Admission Date: April 13, 2025 Subjective Assessed pt at bedside, she was transitioned to [employer] over weeekend. Pt is unresponsive to verbal and gentle tactile stimuli, did not attempt to awaken in concert with comfort directed care. She appears comfortable, pale skin, extremities cool, noted extremity mottling as well as circumoral cyanosis. Respiratory effort increased, rate 26/min and shallow. Son and daughter in law at bedside. Review of Systems Review of Systems: Unobtainable due to cognitive status Physical Exam Constitutional: well developed, + ill appearing and + obese Eyes: PERRL, conjunctivae normal, anicteric sclerae Neck: trachea midline, no thyromegaly Respiratory: + labored breathing and + tachypneic Auscultation: + diminished lung sounds and + rales Cardiovascular: Rate/Rhythm: regular rate, regular rhythm and + tachycardic Gastrointestinal (Abdomen): normal bowel sounds, soft, nontender, no hepatosplenomegaly Neurologic: unresponsive to verbal and gentle tactile stimuli, did not attempt to awaken in concert with comfort directed care Results & Data Vital Signs (Past 12 Hours) Vital Signs O2 Del Method O2 Flow Rate 04/19/25 07:45 Nasal Cannula 2 Laboratory Results No further labs or diagnostics in concert with comfort directed care. Diagnostic Findings No further labs or diagnostics in concert with comfort directed care. Medications Administered Current Inpatient Medications Atropine Sulfate (Atropine Sulfate 1% Op Soln 5 Ml Btl) 4 drops SL Q1H PRN PRN Reason: Secretions or pulm congestion Stop: 05/18/25 12:11 Last Admin: 04/19/25 11:13 Dose: 4 drops Donepezil HCl (Donepezil Hcl 10 Mg Tab) 10 mg PO QAM [facility] Stop: 05/14/25 08:59 Last Admin: 04/19/25 07:45 Dose: Not Given Morphine Sulfate (Morphine Sulf) 100 mg in 100 mls @ 4 mls/hr IV .Q25H [facility]; Protocol Stop: 05/02/25 12:29 Last Titration: 04/19/25 11:12 Dose: 4 mg/hr, 4 mls/hr Levothyroxine Sodium (Levothyroxine Sodium 88 Mcg Tablet) 88 mcg PO DAILYBB [facility] Stop: 05/14/25 06:29 Last Admin: 04/19/25 05:50 Dose: Not Given Lorazepam (Lorazepam 2 Mg/1 Ml Vial) 0.5 mg IV Q4H PRN PRN Reason: Anxiety/Agitation Stop: 05/18/25 12:11 Last Admin: 04/19/25 08:41 Dose: 0.5 mg Memantine (Memantine Hcl 10 Mg Tab) 10 mg PO BID [facility] Stop: 05/13/25 20:59 Last Admin: 04/19/25 07:45 Dose: Not Given Morphine Sulfate (Morphine Bolus From Bag) 1 mg IV Q15M PRN PRN Reason: Comfort Care Parameters Stop: 05/02/25 12:11 Ondansetron HCl (Ondansetron Inj 2 Mg/Ml 2 Ml Vial) 4 mg IV Q4H PRN PRN Reason: Nausea &/or Vomiting Stop: 05/18/25 12:11 Ondansetron HCl (Ondansetron 4 Mg Od Tab) 4 mg SL Q4H PRN PRN Reason: Nausea &/or Vomiting Stop: 05/18/25 12:11 Pantoprazole Sodium (Pantoprazole 40 Mg Tab) 40 mg PO QAM [facility] Stop: 05/14/25 08:59 Last Admin: 04/19/25 07:45 Dose: Not Given PG Care Time/CCT Total # of Minutes Spent Total Time Spent with Patient: Total time spent is greater than 50% in coordination of care (as documented) at patient's floor/unit and/or counseling patient: C[place] [address] SUB INP/OBS CARE 2/35MIN Patient Type Established Medical Decision Making Moderate Complexity Diagnoses Palliative care by specialist Z51.5 Comfort measures only status Z51.5 Need for comfort care
--- NOTE | 2025-04-19 16:10 | Hospitalist Progress Note ---
Date of Service April 19, 2025 Assessment & Plan (1) Witnessed episode of apnea: (2) Vomiting: (3) Alzheimer's dementia: (4) Hyperlipidemia: (5) Lactic acid increased: (6) Dementia: Plan The patient is a 79-year-old female who presented to the ED on 04/13/2025 s/p vomiting episode and hypoxia with suspected aspiration pneumonia Acute hypoxic respiratory failure ARDS Multifocal/aspiration pneumonia Sepsis H/O ADELA on CPAP Ischemic colitis Lactic acidosis Acute metabolic encephalopathy:POA Hx dementia Hypokalemia Hx HLD/HTN: Hx hypothyroidism: Prediabetes Currently on comfort measures only Appreciate palliative care, critical care input Continue comfort care medications CODE STATUS DNI DNR Admission and Anticipated Discharge Date Admission Date: April 13, 2025 Subjective Patient is seen and examined at bedside No distress on exam Discussed with patient's family at bedside Currently on comfort measures only Review of Systems Review of Systems: Unobtainable due to reduced consciousness Physical Exam Physical Exam: Physical Exam: Vitals signs as noted above General Appearance:Moderately built and nourished, no distress, obtunded Head: normocephalic, Atraumatic Eyes: normal inspection Neck: supple, Trachea midline Respiratory/Chest: Coarse breath sounds, b/l rhonchi Cardiovascular: S1, S2, No murmur, tachycardia Abdomen/GI:Soft, mildly distended, non tender, Bowel sounds present Extremities/Musculoskeletal:normal inspection, 1+ edema Neurologic/Psych:Obtunded, unable to perform complete neurological exam Skin: normal color, warm Results & Data Results & Data Vital Signs (Past 12 Hours) Vital Signs O2 Del Method O2 Flow Rate 04/19/25 07:45 Nasal Cannula 2 (2) Vomiting Nausea presence: unspecified Vomiting Intractability: unspecified Vomiting type: unspecified Qualified Code(s): R11.10 - Vomiting, unspecified (6) Dementia Dementia type: unspecified type Dementia behavioral disturbance: without behavioral disturbance Qualified Code(s): F03.90 - Unspecified dementia without behavioral disturbance
--- NOTE | 2025-04-20 10:49 | Palliative Care Progress Note ---
Date of Service April 20, 2025 Assessment & Plan (1) Palliative care by specialist: Plan: Palliative care will continue to follow for ongoing EOL pt care and family support. Met with pt's son and daughter at bedside, they expressed feeling thankful for care pt is getting and that she appears comfortable. Anticipatory guidance reinforced. Again discussed changes pt may move through in the dying process including but not limited to sleeping more, disorientation when awake, restlessness, diminished senses/inability to respond to stimulus although ability to be aware of them remains intact longer, and changes in body temperatures, skin changes/mottling/cyanosis, respiratory pattern changes, and oral secretions. Family verbalized understanding. The goal is to assure a peaceful . (2) Comfort measures only status: Plan: Pt transitioned to [employer] on 04/18/25, has been started on morphine infusion with escalating dose to assure comfort. (3) Need for comfort care: Plan: EOL Symptom manamgement: Pain/dyspnea/tachypnea morphine 2mg IVP PRN [id number] continue morphine drip titrate per protocol based on nonverbal signs of discomfort/dyspnea to keep RR<22bpm Nausea/vomitting zofran 4mg IVP q4h PRN Agitation ativan 0.5mg IVP q4h PRN Hyperactive delirium haldol 5mg IVP q6h PRN Secretions - if repositioning not effective robinul 0.4mg IV q4h PRN atropine SL 3 drops Q1h PRN Nursing care: Discontinue all medications not directed towards comfort. Detether pt from IV tubing, monitor cables, and check vitals once per shift. Please continue HFNC and titrate down as able for patient comfort. Use medications above PRN for dyspnea/tachypnea and do not increase oxygen once titrated down. Assess q1h for pain/dyspnea and treat accordingly. Plan as above Admission and Anticipated Discharge Date Admission Date: April 13, 2025 Subjective Assessed pt at bedside, she was transitioned to [employer] over weeekend. Pt is unresponsive to verbal and gentle tactile stimuli, did not attempt to awaken in concert with comfort directed care. She appears comfortable, pale skin, extremities cool, noted extremity mottling as well as circumoral cyanosis. Respiratory effort increased, rate 26/min and shallow. Morphine infusion currently at 4mg/hr. Son and daughter at bedside. Review of Systems Review of Systems: Unobtainable due to reduced consciousness Physical Exam Constitutional: well developed, + ill appearing and + obese Eyes: PERRL, conjunctivae normal, anicteric sclerae Neck: trachea midline, no thyromegaly Respiratory: + labored breathing and + tachypneic Auscultation: + diminished lung sounds and + rales Cardiovascular: Rate/Rhythm: regular rate, regular rhythm and + tachycardic Gastrointestinal (Abdomen): normal bowel sounds, soft, nontender, no hepatosplenomegaly Neurologic: unresponsive to verbal and gentle tactile stimuli, did not attempt to awaken in concert with comfort directed care Results & Data Vital Signs (Past 12 Hours) Vital Signs O2 Del Method O2 Flow Rate 04/20/25 09:51 Nasal Cannula 2 Laboratory Results Care to be directed by physical assessment to include verbal and nonverbal signs of discomfort, rather than labs and diagnostics. No further labs or diagnostics in concert with comfort directed care. Diagnostic Findings Care to be directed by physical assessment to include verbal and nonverbal signs of discomfort, rather than labs and diagnostics. No further labs or diagnostics in concert with comfort directed care. Medications Administered Current Inpatient Medications Atropine Sulfate (Atropine Sulfate 1% Op Soln 5 Ml Btl) 4 drops SL Q1H PRN PRN Reason: Secretions or pulm congestion Stop: 05/18/25 12:11 Last Admin: 04/19/25 23:27 Dose: 4 drops Donepezil HCl (Donepezil Hcl 10 Mg Tab) 10 mg PO QAM [facility] Stop: 05/14/25 08:59 Last Admin: 04/20/25 08:46 Dose: Not Given Morphine Sulfate (Morphine Sulf) 100 mg in 100 mls @ 4 mls/hr IV .Q25H [facility]; Protocol Stop: 05/02/25 12:29 Last Titration: 04/20/25 07:16 Dose: 4 mg/hr, 4 mls/hr Levothyroxine Sodium (Levothyroxine Sodium 88 Mcg Tablet) 88 mcg PO DAILYBB [facility] Stop: 05/14/25 06:29 Last Admin: 04/20/25 05:46 Dose: Not Given Lorazepam (Lorazepam 2 Mg/1 Ml Vial) 0.5 mg IV Q4H PRN PRN Reason: Anxiety/Agitation Stop: 05/18/25 12:11 Last Admin: 04/19/25 21:52 Dose: 0.5 mg Memantine (Memantine Hcl 10 Mg Tab) 10 mg PO BID [facility] Stop: 05/13/25 20:59 Last Admin: 04/20/25 08:46 Dose: Not Given Morphine Sulfate (Morphine Bolus From Bag) 1 mg IV Q15M PRN PRN Reason: Comfort Care Parameters Stop: 05/02/25 12:11 Last Admin: 04/20/25 05:34 Dose: 1 mg Ondansetron HCl (Ondansetron Inj 2 Mg/Ml 2 Ml Vial) 4 mg IV Q4H PRN PRN Reason: Nausea &/or Vomiting Stop: 05/18/25 12:11 Ondansetron HCl (Ondansetron 4 Mg Od Tab) 4 mg SL Q4H PRN PRN Reason: Nausea &/or Vomiting Stop: 05/18/25 12:11 Pantoprazole Sodium (Pantoprazole 40 Mg Tab) 40 mg PO QAM [facility] Stop: 05/14/25 08:59 Last Admin: 04/20/25 08:46 Dose: Not Given PG Care Time/CCT Total # of Minutes Spent Total Time Spent with Patient: Total time spent is greater than 50% in coordination of care (as documented) at patient's floor/unit and/or counseling patient: Coding [place] [address] SUB INP/OBS CARE 2/35MIN Patient Type Established History Expanded Problem Focused Exam Expanded Problem Focused Medical Decision Making Moderate Complexity Diagnoses Palliative care by specialist Z51.5 Comfort measures only status Z51.5 Need for comfort care
--- NOTE | 2025-04-20 15:35 | Hospitalist Progress Note ---
Date of Service April 20, 2025 Assessment & Plan (1) Witnessed episode of apnea: (2) Vomiting: (3) Alzheimer's dementia: (4) Hyperlipidemia: (5) Lactic acid increased: (6) Dementia: Plan The patient is a 79-year-old female who presented to the ED on 04/13/2025 s/p vomiting episode and hypoxia with suspected aspiration pneumonia Acute hypoxic respiratory failure ARDS Multifocal/aspiration pneumonia Sepsis H/O ADELA on CPAP Ischemic colitis Lactic acidosis Acute metabolic encephalopathy:POA Hx dementia Hypokalemia Hx HLD/HTN: Hx hypothyroidism: Prediabetes Currently on comfort measures only Appreciate palliative care, critical care input Continue comfort care medications Palliative care following CODE STATUS DNI DNR Admission and Anticipated Discharge Date Admission Date: April 13, 2025 Subjective Patient is seen and examined at bedside Clinically deteriorating on comfort measures No distress on exam today Family at bedside Palliative care following Review of Systems Review of Systems: Unobtainable due to reduced consciousness Physical Exam Physical Exam: Physical Exam: Vitals signs as noted above General Appearance:Moderately built and nourished, no distress, obtunded Head: normocephalic, Atraumatic Eyes: normal inspection Neck: supple, Trachea midline Respiratory/Chest: Coarse breath sounds, b/l rhonchi Cardiovascular: S1, S2, No murmur, tachycardia Abdomen/GI:Soft, mildly distended, non tender, Bowel sounds present Extremities/Musculoskeletal:normal inspection, 1+ edema Neurologic/Psych:Obtunded, unable to perform complete neurological exam Skin: normal color, warm Results & Data Results & Data Vital Signs (Past 12 Hours) Vital Signs O2 Del Method O2 Flow Rate 04/20/25 09:51 Nasal Cannula 2 (2) Vomiting Nausea presence: unspecified Vomiting Intractability: unspecified Vomiting type: unspecified Qualified Code(s): R11.10 - Vomiting, unspecified (6) Dementia Dementia type: unspecified type Dementia behavioral disturbance: without behavioral disturbance Qualified Code(s): F03.90 - Unspecified dementia without behavioral disturbance
--- NOTE | 2025-04-21 11:03 | Palliative Care Progress Note ---
Date of Service April 21, 2025 Assessment & Plan (1) Palliative care by specialist: Plan: Palliative care will continue to follow for ongoing EOL pt care and family support. Met with pt's son and daughter at bedside, they expressed feeling thankful for care pt is getting and that she appears comfortable. Anticipatory guidance again reinforced. Discussed changes pt may move through in the dying process including but not limited to sleeping more, disorientation when awake, restlessness, diminished senses/inability to respond to stimulus although ability to be aware of them remains intact longer, and changes in body temperatures, skin changes/mottling/cyanosis, respiratory pattern changes, and oral secretions. Family verbalized understanding. The goal is to assure a peaceful . Visitation encouraged. (2) Comfort measures only status: Plan: Pt transitioned to DIGITAL ASSET COORDINATOR on 04/18/25, has been started on morphine infusion with escalating dose to assure comfort. (3) Need for comfort care: Plan: EOL Symptom manamgement: Pain/dyspnea/tachypnea morphine 2mg IVP PRN [id number] continue morphine drip titrate per protocol based on nonverbal signs of discomfort/dyspnea to keep RR<22bpm Nausea/vomitting zofran 4mg IVP q4h PRN Agitation ativan 0.5mg IVP q4h PRN Hyperactive delirium haldol 5mg IVP q6h PRN Secretions - if repositioning not effective robinul 0.4mg IV q4h PRN atropine SL 3 drops Q1h PRN Nursing care: Discontinue all medications not directed towards comfort. Detether pt from IV tubing, monitor cables, and check vitals once per shift. Please continue HFNC and titrate down as able for patient comfort. Use medications above PRN for dyspnea/tachypnea and do not increase oxygen once titrated down. Assess q1h for pain/dyspnea and treat accordingly. Plan as above Admission and Anticipated Discharge Date Admission Date: April 13, 2025 Subjective Assessed pt at bedside, she was transitioned to DIGITAL ASSET COORDINATOR over [email or web address]. Pt is unresponsive to verbal and gentle tactile stimuli, but does resist oral care. I did not attempt to awaken in concert with comfort directed care. She appears comfortable, pale skin, extremities cool, noted extremity mottling as well as circumoral cyanosis. Respiratory effort decreased, rate 14/min and shallow. Morphine infusion currently at 4mg/hr. Son and daughter at bedside. Review of Systems Review of Systems: Unobtainable due to reduced consciousness Physical Exam Constitutional: well developed, + ill appearing and + obese Eyes: PERRL, conjunctivae normal, anicteric sclerae Neck: trachea midline, no thyromegaly Respiratory: + abnormal respiratory pattern Auscul tation: + diminished lung sounds and + rales Cardiovascular: Rate/Rhythm: regular rate, regular rhythm and + tachycardic Gastrointestinal (Abdomen): normal bowel sounds, soft, nontender, no hepatosplenomegaly Neurologic: unresponsive to verbal and gentle tactile stimuli, did not attempt to awaken in concert with comfort directed care Results & Data Vital Signs (Past 12 Hours) Vital Signs Temp 37.1 C 04/18/25 07:37 Pulse 99 H 04/18/25 17:06 Resp 19 04/18/25 17:06 BP 142/83 H 04/18/25 13:01 Pulse Ox 97 04/18/25 13:00 O2 Del Method Nasal Cannula 04/20/25 22:45 O2 Flow Rate 2 04/20/25 22:45 FiO2 35 04/18/25 12:00 Intake & Output 04/20/25 04/21/25 04/21/25 18:59 06:59 18:59 Intake Total 49.067 / 95.733 46.666 / 95.733 47 / 47 Output Total 250 / 250 Balance 49.067 / -154.267 -203.334 / -154.267 47 / 47 Intake: IV 49.067 / 95.733 46.666 / 95.733 47 / 47 MoRPHine SULF 100 mg In 100 ml 49.067 / 95.733 46.666 / 95.733 47 / 47 @ 4 MG/HR 4 mls/hr IV .Q25H [facility] Rx#:[id number] Output: Urine Amount (Catheter) 250 / 250 [place]/Indwelling 250 / 250 Laboratory Results No further labs or diagnostics in concert with comfort directed care. Diagnostic Findings No further labs or diagnostics in concert with comfort directed care. Medications Administered Current Inpatient Medications Atropine Sulfate (Atropine Sulfate 1% Op Soln 5 Ml Btl) 4 drops SL Q1H PRN PRN Reason: Secretions or pulm congestion Stop: 05/18/25 12:11 Last Admin: 04/21/25 08:06 Dose: 4 drops Donepezil HCl (Donepezil Hcl 10 Mg Tab) 10 mg PO QAM [facility] Stop: 05/14/25 08:59 Last Admin: 04/21/25 08:11 Dose: Not Given Glycopyrrolate (Glycopyrrolate 0.2 Mg/Ml Vial) 0.4 mg IV Q4H PRN PRN Reason: secretions Stop: 05/21/25 10:38 Morphine Sulfate (Morphine Sulf) 100 mg in 100 mls @ 4 mls/hr IV .Q25H [facility]; Protocol Stop: 05/02/25 12:29 Last Titration: 04/21/25 07:25 Dose: 4 mg/hr, 4 mls/hr Levothyroxine Sodium (Levothyroxine Sodium 88 Mcg Tablet) 88 mcg PO DAILYBB [facility] Stop: 05/14/25 06:29 Last Admin: 04/21/25 05:57 Dose: Not Given Lorazepam (Lorazepam 2 Mg/1 Ml Vial) 0.5 mg IV Q4H PRN PRN Reason: Anxiety/Agitation Stop: 05/18/25 12:11 Last Admin: 04/20/25 17:54 Dose: 0.5 mg Memantine (Memantine Hcl 10 Mg Tab) 10 mg PO BID [facility] Stop: 05/13/25 20:59 Last Admin: 04/21/25 08:11 Dose: Not Given Miscellaneous (Check Scopolamine Patch Placement) 1 each N/A QS [facility] Stop: 05/21/25 15:59 Miscellaneous (Remove Transderm-Scop Patch) 1 each N/A Q72H [facility] Stop: 05/24/25 10:44 Morphine Sulfate (Morphine Bolus From Bag) 1 mg IV Q15M PRN PRN Reason: Comfort Care Parameters Stop: 05/02/25 12:11 Last Admin: 04/21/25 05:44 Dose: 1 mg Ondansetron HCl (Ondansetron Inj 2 Mg/Ml 2 Ml Vial) 4 mg IV Q4H PRN PRN Reason: Nausea &/or Vomiting Stop: 05/18/25 12:11 Ondansetron HCl (Ondansetron 4 Mg Od Tab) 4 mg SL Q4H PRN PRN Reason: Nausea &/or Vomiting Stop: 05/18/25 12:11 Pantoprazole Sodium (Pantoprazole 40 Mg Tab) 40 mg PO QAM [facility] Stop: 05/14/25 08:59 Last Admin: 04/21/25 08:11 Dose: Not Given Scopolamine (Scopolamine 1 Mg/72 Hr Tdsy Patch) 1 patch TD Q72H [facility] Stop: 05/21/25 10:44 PG Care Time/CCT Total # of Minutes Spent Total Time Spent with Patient: Total time spent is greater than 50% in coordination of care (as documented) at patient's floor/unit and/or counseling patient: Coding [place] [address] SUB INP/OBS CARE 2/35MIN Patient Type Established History Problem Focused Exam Problem Focused Medical Decision Making Low Complexity Diagnoses Palliative care by specialist Z51.5 Comfort measures only status Z51.5 Need for comfort care
[2025-04-21] MEDS: SCOPOLAMINE 1 MG/72 HR TDSY PATCH TD SCH (11:23)
[2025-04-21] MEDS: GLYCOPYRROLATE 0.2 MG/ML VIAL IV PRN (11:24)
[2025-04-21] MEDS: CHECK SCOPOLAMINE PATCH PLACEMENT SCH (15:52)
--- NOTE | 2025-04-21 15:54 | Hospitalist Progress Note ---
Date of Service April 21, 2025 Assessment & Plan (1) Witnessed episode of apnea: (2) Vomiting: (3) Alzheimer's dementia: (4) Hyperlipidemia: (5) Lactic acid increased: (6) Dementia: Plan The patient is a 79-year-old female who presented to the ED on 04/13/2025 s/p vomiting episode and hypoxia with suspected aspiration pneumonia Comfort care status Remains stable without any acute distress Excessive respiratory secretions with transmitted noises and will continue with scopolamine patch and atropine drops Remains free from any pain Discussed with the family members Below are the medical conditions she has been suffering from: Acute hypoxic respiratory failure ARDS Multifocal/aspiration pneumonia Sepsis H/O ADELA on CPAP Ischemic colitis Lactic acidosis Acute metabolic encephalopathy:POA Hx dementia Hypokalemia Hx HLD/HTN: Hx hypothyroidism: Prediabetes Currently on comfort measures only Appreciate palliative care, critical care input Continue comfort care medications Palliative care following CODE STATUS DNI DNR Admission and Anticipated Discharge Date Admission Date: April 13, 2025 Subjective 04/21/2025 The patient was seen and examined in the medical floor in presence of the family members She has been stable without any acute distress Does not have any increasing pain and or other symptoms Review of Systems Review of Systems: Unobtainable due to cognitive status Physical Exam Physical Exam: Lying in bed with minimal distress due to shortness of breath and excessive respiratory suppression Constitutional: + ill appearing Eyes: Closed ENMT: external ear and nose normal, oropharynx normal Neck: trachea midline, no thyromegaly Respiratory: + respiratory distress (Mild to moderate distress at rest) Auscultation: + crackles (Transmitted sound in the trachea) Cardiovascular: Rate/Rhythm: regular rate, regular rhythm and + tachycardic Heart Sounds: normal S1 and normal S2; no murmur Extremities: + edema Gastrointestinal (Abdomen): Inspection/Auscultation: normal bowel sounds; abdomen not distended Percussion/Palpation: abdomen soft Neurologic: Unresponsive to painful stimuli Results & Data Results & Data Vital Signs (Past 12 Hours) Vital Signs O2 Del Method O2 Flow Rate 04/21/25 08:30 Nasal Cannula 2 Medications Administered Current Inpatient Medications Atropine Sulfate (Atropine Sulfate 1% Op Soln 5 Ml Btl) 4 drops SL Q1H PRN PRN Reason: Secretions or pulm congestion Stop: 05/18/25 12:11 Last Admin: 04/21/25 14:22 Dose: 4 drops Donepezil HCl (Donepezil Hcl 10 Mg Tab) 10 mg PO QAM [facility] Stop: 05/14/25 08:59 Last Admin: 04/21/25 08:11 Dose: Not Given Glycopyrrolate (Glycopyrrolate 0.2 Mg/Ml Vial) 0.4 mg IV Q4H PRN PRN Reason: secretions Stop: 05/21/25 10:38 Last Admin: 04/21/25 15:37 Dose: 0.4 mg Morphine Sulfate (Morphine Sulf) 100 mg in 100 mls @ 4 mls/hr IV .Q25H [facility]; Protocol Stop: 05/02/25 12:29 Last Titration: 04/21/25 07:25 Dose: 4 mg/hr, 4 mls/hr Levothyroxine Sodium (Levothyroxine Sodium 88 Mcg Tablet) 88 mcg PO DAILYBB [facility] Stop: 05/14/25 06:29 Last Admin: 04/21/25 05:57 Dose: Not Given Lorazepam (Lorazepam 2 Mg/1 Ml Vial) 0.5 mg IV Q4H PRN PRN Reason: Anxiety/Agitation Stop: 05/18/25 12:11 Last Admin: 04/21/25 14:28 Dose: 0.5 mg Memantine (Memantine Hcl 10 Mg Tab) 10 mg PO BID [facility] Stop: 05/13/25 20:59 Last Admin: 04/21/25 08:11 Dose: Not Given Miscellaneous (Check Scopolamine Patch Placement) 1 each N/A QS [facility] Stop: 05/21/25 15:59 Miscellaneous (Remove Transderm-Scop Patch) 1 each N/A Q72H [facility] Stop: 05/24/25 10:44 Morphine Sulfate (Morphine Bolus From Bag) 1 mg IV Q15M PRN PRN Reason: Comfort Care Parameters Stop: 05/02/25 12:11 Last Admin: 04/21/25 05:44 Dose: 1 mg Ondansetron HCl (Ondansetron Inj 2 Mg/Ml 2 Ml Vial) 4 mg IV Q4H PRN PRN Reason: Nausea &/or Vomiting Stop: 05/18/25 12:11 Ondansetron HCl (Ondansetron 4 Mg Od Tab) 4 mg SL Q4H PRN PRN Reason: Nausea &/or Vomiting Stop: 05/18/25 12:11 Pantoprazole Sodium (Pantoprazole 40 Mg Tab) 40 mg PO QAM [facility] Stop: 05/14/25 08:59 Last Admin: 04/21/25 08:11 Dose: Not Given Scopolamine (Scopolamine 1 Mg/72 Hr Tdsy Patch) 1 patch TD Q72H [facility] Stop: 05/21/25 10:44 Last Admin: 04/21/25 11:23 Dose: 1 patch (2) Vomiting Nausea presence: unspecified Vomiting Intractability: unspecified Vomiting type: unspecified Qualified Code(s): R11.10 - Vomiting, unspecified (6) Dementia Dementia type: unspecified type Dementia behavioral disturbance: without behavioral disturbance Qualified Code(s): F03.90 - Unspecified dementia without behavioral disturbance
--- NOTE | 2025-04-22 13:58 | Hospitalist Progress Note ---
Date of Service April 22, 2025 Assessment & Plan (1) Witnessed episode of apnea: (2) Vomiting: (3) Alzheimer's dementia: (4) Hyperlipidemia: (5) Lactic acid increased: (6) Dementia: Plan The patient is a 79-year-old female who presented to the ED on 04/13/2025 s/p vomiting episode and hypoxia with suspected aspiration pneumonia Comfort care status Remains stable without any acute distress Excessive respiratory secretions with transmitted noises and will continue with scopolamine patch and atropine drops Remains free from any pain Discussed with the family members-Does not have any need at this time and reassured that she will be kept comfortable Below are the medical conditions she has been suffering from: Acute hypoxic respiratory failure ARDS Multifocal/aspiration pneumonia Sepsis H/O ADELA on CPAP Ischemic colitis Lactic acidosis Acute metabolic encephalopathy:POA Hx dementia Hypokalemia Hx HLD/HTN: Hx hypothyroidism: Prediabetes Currently on comfort measures only Appreciate palliative care, critical care input Continue comfort care medications Palliative care following CODE STATUS DNI DNR Admission and Anticipated Discharge Date Admission Date: April 13, 2025 Subjective 04/21/2025 The patient was seen and examined in the medical floor in presence of the family members She has been stable without any acute distress Does not have any increasing pain and or other symptoms 04/22/2025 The patient was seen and minimally examined in medical floor in presence of the family members She remains comfortable Review of Systems Review of Systems: Unobtainable due to cognitive status Physical Exam Physical Exam: Lying in bed with minimal distress due to shortness of breath and excessive respiratory suppression Constitutional: + ill appearing ENMT: external ear and nose normal, oropharynx normal Neck: trachea midline, no thyromegaly Respiratory: + respiratory distress (Mild to moderate distress at rest) Auscultation: + crackles (Transmitted sound in the trachea) Cardiovascular: Rate/Rhythm: regular rate, regular rhythm and + tachycardic Heart Sounds: normal S1 and normal S2; no murmur Extremities: + edema Gastrointestinal (Abdomen): Inspection/Auscultation: normal bowel sounds; abdomen not distended Percussion/Palpation: abdomen soft Results & Data Results & Data Vital Signs (Past 12 Hours) Vital Signs O2 Del Method O2 Flow Rate 04/22/25 10:57 Nasal Cannula 2 Medications Administered Current Inpatient Medications Atropine Sulfate (Atropine Sulfate 1% Op Soln 5 Ml Btl) 4 drops SL Q1H PRN PRN Reason: Secretions or pulm congestion Stop: 05/18/25 12:11 Last Admin: 04/22/25 13:46 Dose: 4 drops Donepezil HCl (Donepezil Hcl 10 Mg Tab) 10 mg PO QAM [facility] Stop: 05/14/25 08:59 Last Admin: 04/22/25 07:08 Dose: Not Given Glycopyrrolate (Glycopyrrolate 0.2 Mg/Ml Vial) 0.4 mg IV Q4H PRN PRN Reason: secretions Stop: 05/21/25 10:38 Last Admin: 04/22/25 13:43 Dose: 0.4 mg Morphine Sulfate (Morphine Sulf) 100 mg in 100 mls @ 4 mls/hr IV .Q25H [facility]; Protocol Stop: 05/02/25 12:29 Last Titration: 04/22/25 07:06 Dose: 4 mg/hr, 4 mls/hr Levothyroxine Sodium (Levothyroxine Sodium 88 Mcg Tablet) 88 mcg PO DAILYBB [facility] Stop: 05/14/25 06:29 Last Admin: 04/22/25 06:23 Dose: Not Given Lorazepam (Lorazepam 2 Mg/1 Ml Vial) 0.5 mg IV Q4H PRN PRN Reason: Anxiety/Agitation Stop: 05/18/25 12:11 Last Admin: 04/21/25 14:28 Dose: 0.5 mg Memantine (Memantine Hcl 10 Mg Tab) 10 mg PO BID [facility] Stop: 05/13/25 20:59 Last Admin: 04/22/25 07:08 Dose: Not Given Miscellaneous (Check Scopolamine Patch Placement) 1 each N/A QS [facility] Stop: 05/21/25 15:59 Last Admin: 04/22/25 09:52 Dose: 1 each Miscellaneous (Remove Transderm-Scop Patch) 1 each N/A Q72H [facility] Stop: 05/24/25 10:44 Morphine Sulfate (Morphine Bolus From Bag) 1 mg IV Q15M PRN PRN Reason: Comfort Care Parameters Stop: 05/02/25 12:11 Last Admin: 04/22/25 09:51 Dose: 1 mg Ondansetron HCl (Ondansetron Inj 2 Mg/Ml 2 Ml Vial) 4 mg IV Q4H PRN PRN Reason: Nausea &/or Vomiting Stop: 05/18/25 12:11 Ondansetron HCl (Ondansetron 4 Mg Od Tab) 4 mg SL Q4H PRN PRN Reason: Nausea &/or Vomiting Stop: 05/18/25 12:11 Pantoprazole Sodium (Pantoprazole 40 Mg Tab) 40 mg PO QAM [facility] Stop: 05/14/25 08:59 Last Admin: 04/22/25 07:08 Dose: Not Given Scopolamine (Scopolamine 1 Mg/72 Hr Tdsy Patch) 1 patch TD Q72H [facility] Stop: 05/21/25 10:44 Last Admin: 04/21/25 11:23 Dose: 1 patch (2) Vomiting Nausea presence: unspecified Vomiting Intractability: unspecified Vomiting type: unspecified Qualified Code(s): R11.10 - Vomiting, unspecified (6) Dementia Dementia type: unspecified type Dementia behavioral disturbance: without behavioral disturbance Qualified Code(s): F03.90 - Unspecified dementia without behavioral disturbance
--- NOTE | 2025-04-22 14:49 | Electrocardiogram Report ---
Test Reason : Blood Pressure : */* mmHG Vent. Rate : 122 BPM Atrial Rate : 122 BPM P-R Int : 156 ms QRS Dur : 80 ms QT Int : 322 ms P-R-T Axes : 59 29 62 degrees QTcB Int : [address] abnormality Abnormal ECG When compared with ECG of 16-Apr-2025 08:15, No significant change was found Confirmed by Moreno Aparicio ([id number]) on 04/22/2025 2:49:22 PM Referred By: REFERRED SELF Confirmed By: Moreno Aparicio
[2025-04-22] MEDS: HYOSCYAMINE SULFATE 0.125 MG TAB SL PRN (16:04)
--- NOTE | 2025-04-23 13:33 | Palliative Care Progress Note ---
Date of Service April 23, 2025 Assessment & Plan (1) Palliative care by specialist: Plan: Palliative care will continue to follow for ongoing EOL pt care and family support. Met with pt's son and daughter at bedside, they expressed feeling thankful for care pt is getting and that she appears comfortable. Anticipatory guidance again reinforced. Discussed changes pt may move through in the dying process including but not limited to sleeping more, disorientation when awake, restlessness, diminished senses/inability to respond to stimulus although ability to be aware of them remains intact longer, and changes in body temperatures, skin changes/mottling/cyanosis, respiratory pattern changes, and oral secretions. Family verbalized understanding. The goal is to assure a peaceful . Visitation encouraged. (2) Comfort measures only status: Plan: Pt transitioned to [employer] on 04/18/25, has been started on morphine infusion titrated to assure comfort. (3) Need for comfort care: Plan: EOL Symptom manamgement: Pain/dyspnea/tachypnea morphine 2mg IVP PRN [id number] continue morphine drip titrate per protocol based on nonverbal signs of discomfort/dyspnea to keep RR<22bpm Nausea/vomitting zofran 4mg IVP q4h PRN Agitation ativan 0.5mg IVP q4h PRN Hyperactive delirium haldol 5mg IVP q6h PRN Secretions - if repositioning not effective robinul 0.4mg IV q4h PRN atropine SL 3 drops Q1h PRN Added hyoscyamine 0.125 mg SL Q4H PRN Nursing care: Discontinue all medications not directed towards comfort. Detether pt from IV tubing, monitor cables, and check vitals once per shift. Please continue HFNC and titrate down as able for patient comfort. Use medications above PRN for dyspnea/tachypnea and do not increase oxygen once titrated down. Assess q1h for pain/dyspnea and treat accordingly. Plan as above Admission and Anticipated Discharge Date Admission Date: April 13, 2025 Subjective Assessed pt at bedside, she was transitioned to [employer] over [employer]. Pt is unresponsive to verbal and gentle tactile stimuli, but does resist oral care. I did not attempt to awaken in concert with comfort directed care. She appears comfortable, pale skin, extremities cool, noted extremity mottling as well as circumoral cyanosis. Respiratory effort increased, rate 24/min and shallow with shoulder shrugging, + accessory muscle use and copious secretions. Morphine infusion currently at 4mg/hr. Son and daughter at bedside. Review of Systems Review of Systems: Unobtainable due to reduced consciousness Physical Exam Constitutional: well developed, + ill appearing and + obese Eyes: PERRL, conjunctivae normal, anicteric sclerae Neck: trachea midline, no thyromegaly Respiratory: + abnormal respiratory pattern Auscul tation: + diminished lung sounds and + rales Cardiovascular: Rate/Rhythm: regular rate, regular rhythm and + tachycardic Gastrointestinal (Abdomen): normal bowel sounds, soft, nontender, no hepatosplenomegaly Neurologic: unresponsive to verbal and gentle tactile stimuli, did not attempt to awaken in concert with comfort directed care Results & Data Vital Signs (Past 12 Hours) Vital Signs O2 Del Method O2 Flow Rate 04/23/25 07:25 Nasal Cannula 2 Laboratory Results No further labs or diagnostics in concert with comfort directed care. Diagnostic Findings No further labs or diagnostics in concert with comfort directed care. Medications Administered Current Inpatient Medications Atropine Sulfate (Atropine Sulfate 1% Op Soln 5 Ml Btl) 4 drops SL Q1H PRN PRN Reason: Secretions or pulm congestion Stop: 05/18/25 12:11 Last Admin: 04/23/25 12:55 Dose: 4 drops Donepezil HCl (Donepezil Hcl 10 Mg Tab) 10 mg PO QAM [facility] Stop: 05/14/25 08:59 Last Admin: 04/23/25 07:45 Dose: Not Given Glycopyrrolate (Glycopyrrolate 0.2 Mg/Ml Vial) 0.4 mg IV Q4H PRN PRN Reason: secretions Stop: 05/21/25 10:38 Last Admin: 04/23/25 09:55 Dose: 0.4 mg Hyoscyamine (Hyoscyamine Sulfate 0.125 Mg Tab) 0.125 mg SL Q4H PRN PRN Reason: secretions Stop: 05/22/25 15:19 Last Admin: 04/22/25 20:03 Dose: 0.125 mg Morphine Sulfate (Morphine Sulf) 100 mg in 100 mls @ 4 mls/hr IV .Q25H [facility]; Protocol Stop: 05/02/25 12:29 Last Admin: 04/22/25 21:11 Dose: 4 mg/hr, 4 mls/hr Levothyroxine Sodium (Levothyroxine Sodium 88 Mcg Tablet) 88 mcg PO DAILYBB [facility] Stop: 05/14/25 06:29 Last Admin: 04/23/25 00:32 Dose: Not Given Lorazepam (Lorazepam 2 Mg/1 Ml Vial) 0.5 mg IV Q4H PRN PRN Reason: Anxiety/Agitation Stop: 05/18/25 12:11 Last Admin: 04/21/25 14:28 Dose: 0.5 mg Memantine (Memantine Hcl 10 Mg Tab) 10 mg PO BID [facility] Stop: 05/13/25 20:59 Last Admin: 04/23/25 07:45 Dose: Not Given Miscellaneous (Check Scopolamine Patch Placement) 1 each N/A QS [facility] Stop: 05/21/25 15:59 Last Admin: 04/23/25 07:51 Dose: 1 each Miscellaneous (Remove Transderm-Scop Patch) 1 each N/A Q72H [facility] Stop: 05/24/25 10:44 Morphine Sulfate (Morphine Bolus From Bag) 1 mg IV Q15M PRN PRN Reason: Comfort Care Parameters Stop: 05/02/25 12:11 Last Admin: 04/23/25 12:55 Dose: 1 mg Ondansetron HCl (Ondansetron Inj 2 Mg/Ml 2 Ml Vial) 4 mg IV Q4H PRN PRN Reason: Nausea &/or Vomiting Stop: 05/18/25 12:11 Ondansetron HCl (Ondansetron 4 Mg Od Tab) 4 mg SL Q4H PRN PRN Reason: Nausea &/or Vomiting Stop: 05/18/25 12:11 Pantoprazole Sodium (Pantoprazole 40 Mg Tab) 40 mg PO QAM [facility] Stop: 05/14/25 08:59 Last Admin: 04/23/25 07:45 Dose: Not Given Scopolamine (Scopolamine 1 Mg/72 Hr Tdsy Patch) 1 patch TD Q72H [facility] Stop: 05/21/25 10:44 Last Admin: 04/21/25 11:23 Dose: 1 patch PG Care Time/CCT Total # of Minutes Spent Total Time Spent with Patient: Total time spent is greater than 50% in coordination of care (as documented) at patient's floor/unit and/or counseling patient: Coding [place] [address] SUB INP/OBS CARE 10/31MIN Patient Type Established History Problem Focused Exam Problem Focused Medical Decision Making Low Complexity Diagnoses Palliative care by specialist Z51.5 Comfort measures only status Z51.5 Need for comfort care
--- NOTE | 2025-04-23 16:12 | Hospitalist Progress Note ---
Date of Service April 23, 2025 Assessment & Plan (1) Witnessed episode of apnea: (2) Vomiting: (3) Alzheimer's dementia: (4) Hyperlipidemia: (5) Lactic acid increased: (6) Dementia: Plan The patient is a 79-year-old female who presented to the ED on 04/13/2025 s/p vomiting episode and hypoxia with suspected aspiration pneumonia Comfort care status Remains stable without any acute distress Excessive respiratory secretions with transmitted noises and will continue with scopolamine patch and atropine drops Remains free from any pain Discussed with the family members-Does not have any need at this time and reassured that she will be kept comfortable The patient remains comfortable with some gurgling due to secretions in the throat and trachea Has been getting supportive medications and discussed with the family members Below are the medical conditions she has been suffering from: Acute hypoxic respiratory failure ARDS Multifocal/aspiration pneumonia Sepsis H/O ADELA on CPAP Ischemic colitis Lactic acidosis Acute metabolic encephalopathy:POA Hx dementia Hypokalemia Hx HLD/HTN: Hx hypothyroidism: Prediabetes Currently on comfort measures only Appreciate palliative care, critical care input Continue comfort care medications Palliative care following CODE STATUS DNI DNR Admission and Anticipated Discharge Date Admission Date: April 13, 2025 Subjective 04/21/2025 The patient was seen and examined in the medical floor in presence of the family members She has been stable without any acute distress Does not have any increasing pain and or other symptoms 04/22/2025 The patient was seen and minimally examined in medical floor in presence of the family members She remains comfortable Review of Systems Review of Systems: Unobtainable due to cognitive status Physical Exam Physical Exam: Lying in bed with minimal distress due to shortness of breath and excessive respiratory suppression Constitutional: + ill appearing ENMT: external ear and nose normal, oropharynx normal Neck: trachea midline, no thyromegaly Respiratory: + respiratory distress (Mild to moderate distress at rest) Auscultation: + crackles (Transmitted sound in the trachea) Cardiovascular: Rate/Rhythm: regular rate, regular rhythm and + tachycardic Heart Sounds: normal S1 and normal S2; no murmur Extremities: + edema Gastrointestinal (Abdomen): Inspection/Auscultation: normal bowel sounds; abdomen not distended Percussion/Palpation: abdomen soft Results & Data Results & Data Vital Signs (Past 12 Hours) Vital Signs O2 Del Method O2 Flow Rate 04/23/25 07:25 Nasal Cannula 2 Medications Administered Current Inpatient Medications Atropine Sulfate (Atropine Sulfate 1% Op Soln 5 Ml Btl) 4 drops SL Q1H PRN PRN Reason: Secretions or pulm congestion Stop: 05/18/25 12:11 Last Admin: 04/23/25 15:58 Dose: 4 drops Donepezil HCl (Donepezil Hcl 10 Mg Tab) 10 mg PO QAM [facility] Stop: 05/14/25 08:59 Last Admin: 04/23/25 07:45 Dose: Not Given Glycopyrrolate (Glycopyrrolate 0.2 Mg/Ml Vial) 0.4 mg IV Q4H PRN PRN Reason: secretions Stop: 05/21/25 10:38 Last Admin: 04/23/25 09:55 Dose: 0.4 mg Hyoscyamine (Hyoscyamine Sulfate 0.125 Mg Tab) 0.125 mg SL Q4H PRN PRN Reason: secretions Stop: 05/22/25 15:19 Last Admin: 04/22/25 20:03 Dose: 0.125 mg Morphine Sulfate (Morphine Sulf) 100 mg in 100 mls @ 4 mls/hr IV .Q25H [facility]; Protocol Stop: 05/02/25 12:29 Last Admin: 04/22/25 21:11 Dose: 4 mg/hr, 4 mls/hr Levothyroxine Sodium (Levothyroxine Sodium 88 Mcg Tablet) 88 mcg PO DAILYBB [facility] Stop: 05/14/25 06:29 Last Admin: 04/23/25 00:32 Dose: Not Given Lorazepam (Lorazepam 2 Mg/1 Ml Vial) 0.5 mg IV Q4H PRN PRN Reason: Anxiety/Agitation Stop: 05/18/25 12:11 Last Admin: 04/21/25 14:28 Dose: 0.5 mg Memantine (Memantine Hcl 10 Mg Tab) 10 mg PO BID [facility] Stop: 05/13/25 20:59 Last Admin: 04/23/25 07:45 Dose: Not Given Miscellaneous (Check Scopolamine Patch Placement) 1 each N/A QS [facility] Stop: 05/21/25 15:59 Last Admin: 04/23/25 15:58 Dose: 1 each Miscellaneous (Remove Transderm-Scop Patch) 1 each N/A Q72H [facility] Stop: 05/24/25 10:44 Morphine Sulfate (Morphine Bolus From Bag) 1 mg IV Q15M PRN PRN Reason: Comfort Care Parameters Stop: 05/02/25 12:11 Last Admin: 04/23/25 12:55 Dose: 1 mg Ondansetron HCl (Ondansetron Inj 2 Mg/Ml 2 Ml Vial) 4 mg IV Q4H PRN PRN Reason: Nausea &/or Vomiting Stop: 05/18/25 12:11 Ondansetron HCl (Ondansetron 4 Mg Od Tab) 4 mg SL Q4H PRN PRN Reason: Nausea &/or Vomiting Stop: 05/18/25 12:11 Pantoprazole Sodium (Pantoprazole 40 Mg Tab) 40 mg PO QAM [facility] Stop: 05/14/25 08:59 Last Admin: 04/23/25 07:45 Dose: Not Given Scopolamine (Scopolamine 1 Mg/72 Hr Tdsy Patch) 1 patch TD Q72H [facility] Stop: 05/21/25 10:44 Last Admin: 04/21/25 11:23 Dose: 1 patch (2) Vomiting Nausea presence: unspecified Vomiting Intractability: unspecified Vomiting type: unspecified Qualified Code(s): R11.10 - Vomiting, unspecified (6) Dementia Dementia type: unspecified type Dementia behavioral disturbance: without behavioral disturbance Qualified Code(s): F03.90 - Unspecified dementia without behavioral disturbance
--- NOTE | 2025-04-24 03:30 | Death Pronouncement Note ---
Date of Service April 24, 2025 Pronouncement Note Admission Date April 13, 2025 Date and Time of Date of : 04/24/25 Time of : 03:20 Additional Data Confirmation of : no pulse, no respirations, no heart sounds and pupils fixed and dilated Family: at bedside Attending physician: Murray Eng MD
[2025-04-24] MEDS ORDERED: REMOVE TRANSDERM-SCOP PATCH SCH (10:45)
--- NOTE | 2025-04-25 09:14 | Discharge Summary ---
Date of Service April 25, 2025 Admission HPI Per Admitting Provider The patient is a 79-year-old female with a past medical history of dementia, hypothyroidism, HTN, constipation, HLD who presents to the ED on 04/13/2025 after she was sent in by her [facility] s/p vomiting with CPAP 1. At this time, she became hypoxic. The patient was being treated for community- acquired pneumonia with Augmentin since 04/02. There was also concern for a UTI outpatient. Outpatient culture + for pansensitive E. coli. The patient is nonverbal at baseline and unable to provide a history. Per the [facility] facility, the patient vomited while she had her CPAP on and became hypoxic. On exam, there is audible rhonchi and increased work of breathing. The patient is tachycardic in the 120s. On arrival to the ED, labs remarkable for WBC 37.4, BUN 24, glucose 141, lactate 5.4, AST 83, ALT 59 1. Pulmonary vascular congestion. 2. There are bibasilar airspace opacities, left side greater than right. Correlate clinically for evidence of pneumonia/aspiration pneumonitis. Radiographic follow-up to resolution is recommended. The patient was given IV antibiotics, IV fluids and will be admitted for further management of acute respiratory distress and aspiration Admission Exam Per Admitting Provider Constitutional: WD/WN, vitals as above Eyes: PERRL, conjunctivae normal, anicteric sclerae ENMT: external ear and nose normal, oropharynx normal Neck: trachea midline, no thyromegaly Respiratory: normal respiratory effort, lungs clear to auscultation (Audible rhonchi bilateral lungs) + labored breathing Cardiovascular: RRR, no murmur, no edema Gastrointestinal (Abdomen): normal bowel sounds, soft, nontender, no hepatosplenomegaly Musculoskeletal: no cyanosis or clubbing, extremities motor strength 5/5 Skin: no rashes, warm and dry Neurologic: PERRL, EOMI, accommodation nl, no face palsy, no dysarthria (Nonverbal, no apparent distress) Lymphatic: no cervical or axillary lymphadenopathy Principal Diagnosis : Acute Respiratory Failure Discharge Data Allergies Allergy/AdvReac Type Severity Reaction Status Date / Time No Known Allergies Allergy Verified 04/13/25 13:29 Consultations 04/13/25 12:17 ED Decision to Admit Stat 04/16/25 09:45 Consult Palliative Care Routine Ordered Studies 04/13/25 11:52 CT angio chest PE protocol Stat 04/13/25 13:55 CT abd pelvis IV con only Urgent 04/16/25 15:21 CT head/brain wo con Urgent 04/16/25 16:09 MRI Brain [MR brain wo/w con] Routine 04/18/25 08:03 CT for pulmonary embolism PE [CT angio chest PE protocol] Urgent Hospital Course (1) Witnessed episode of apnea: (2) Vomiting: (3) Alzheimer's dementia: (4) Hyperlipidemia: (5) Lactic acid increased: (6) Dementia: Plan The patient is a 79-year-old female who presented to the ED on 04/13/2025 s/p vomiting episode and hypoxia with suspected aspiration pneumonia Comfort care status Remains stable without any acute distress Excessive respiratory secretions with transmitted noises and will continue with scopolamine patch and atropine drops Remains free from any pain Discussed with the family members-Does not have any need at this time and reassured that she will be kept comfortable The patient remains comfortable with some gurgling due to secretions in the throat and trachea Has been getting supportive medications and discussed with the family members Below are the medical conditions she has been suffering from: Acute hypoxic respiratory failure ARDS Multifocal/aspiration pneumonia Sepsis H/O ADELA on CPAP Ischemic colitis Lactic acidosis Acute metabolic encephalopathy:POA Hx dementia Hypokalemia Hx HLD/HTN: Hx hypothyroidism: Prediabetes Currently on comfort measures only Appreciate palliative care, critical care input Continue comfort care medications Palliative care following CODE STATUS DNI DNR Total Time Total Time Spent Total Time Spent (In Minutes): 20 minutes Discharge Plan Discharge Items Patient Disposition: Other Date/Time: 04/24/25 03:20
== END 2025-04-24 03:52 | disposition expired | DRG 871 ==
LOC: ED 09:54 → SUATTDRO 11:50 → EDINP 11:50 → 2S 13:30 → 1E 04-18 11:21 → 3E 04-18 18:20